=== PATIENT | male | born 1985 ===

== ENCOUNTER 2020-05-04 22:34 | Emergency (ER) | payer MEDICAID, SELFPAY ==
--- NOTE | ~2020-05-04 | XR_ITS ---
EXAMINATION: XR ABDOMEN KUB CLINICAL INDICATION: Constipation COMPARISON: None TECHNIQUE: AP view of the abdomen. FINDINGS: There is a nonobstructive bowel gas pattern. No dilated loops of bowel. Gas and stool throughout the colon with moderate colonic stool burden. No gross evidence of free air, though evaluation is limited on supine imaging. The lung bases are clear. No suspicious calcifications. No acute osseous abnormality. XR/XR KUB IMPRESSION: Moderate colonic stool burden.
[2020-05-04 22:48] VITALS: BP 150/91; BP 170/110; PULSE 80; PULSE 94; RESP 18; TEMP 37.3; O2SAT 97; O2SAT 99; BMI 29.2
--- NOTE | 2020-05-04 23:15 | ED.ABDPAIN ---
HPI - Abdominal Pain General Chief Complaint: Abdominal Pain Stated Complaint: ABD PAIN X 2 WEEKS,NAUSEA Time Seen by Provider: 05/04/20 22:54 Source: patient Mode of arrival: ambulatory Limitations: no limitations History of Present Illness HPI narrative: Patient presents to the ED for left lower abdominal pain for 2 weeks with nausea. patient states no dysuria, hematuria, fever, chills, dysuria, flank pain, coughing, chest pain, testicular pain, or hematuria. MD elicited complaint: abdominal pain Related Data Previous Rx's Medication Instructions Recorded docusate calcium 240 mg PO DAILY PRN #7 cap 05/05/20 polyethylene glycol 3350 [Miralax] 17 g PO DAILY #510 g 05/05/20 Allergies Allergy/AdvReac Type Severity Reaction Status Date / Time No Known Allergies Allergy Verified 05/04/20 22:47 Review of Systems Constitutional: Reports as per HPI and Reports no additional constitutional complaints Eyes: Reports as per HPI and Reports no additional eye complaints Reports system reviewed and no additional complaints, except as documented and Reports as per HPI Cardiovascular: Reports as per HPI and Reports no additional cardiovascular complaints Respiratory: Reports as per HPI Gastrointestinal: Reports as per HPI, Reports no additional gastrointestinal complaints, Reports abdominal pain and Reports nausea Genitourinary: Reports no additional male genitourinary complaints and Reports as per HPI Musculoskeletal: Reports no additional musculoskeletal complaints and Reports as per HPI Reports system reviewed and no additional complaints, except as documented and Reports as per HPI Psychiatric: Reports no additional psychiatric complaints and Reports as per HPI Physical Exam Vital Signs: Vital Signs: Last Vital Signs Temp 99.1 F 05/04/20 22:48 Pulse 80 05/04/20 22:48 Resp 18 05/04/20 22:48 BP 150/91 H 05/04/20 22:48 Pulse Ox 97 05/04/20 22:48 Body Mass Index 29.2 Const: General: cooperative, healthy appearing, comfortable, no acute distress, well developed, alert and awake; No Physically active Orientation/consciousness: patient oriented x3 HENMT: Head: Yes normal to inspection, Yes No palpable skull fracture present, Yes normocephalic, Yes atraumatic, No abrasion, No Acrocyanosis present, No Banegas's sign, No contusion, No cranial bruits, No hematoma, No laceration, No occipital foramen tenderness, No palpable skull fracture, No raccoon eyes, No scalp tenderness, No Temporal artery tenderness present and No periorbital ecchymosis Eyes: General: appearance normal, both eyes and all related structures Neck: Neck: Yes normal visual inspection, Yes full ROM, Yes no lymphadenopathy, Yes no meningeal signs, Yes trachea midline, Yes supple and No tender Chest: Chest palpation & inspection: normal inspection of the chest and normal palpation of entire chest wall Resp: Effort & Inspection: normal respiratory effort and able to speak in complete sentences Auscultation: clear to auscultation bilaterally Cardio: Jugular venous distension: no JVD Heart sounds: S1 normal heart sound present and S2 normal heart sound present GI: Inspection: Yes normal to inspection Palpation (GI): Firmness to palpation present (GI), Tenderness to palpation present (GI) in the LLQ, Guarding due to palpation present (GI) and Rigid due to palpation : General: No CVA tenderness and Yes no CVA tenderness Back/Spine/Pelvis: Back: no CVA tenderness, No CVA tenderness and No back tenderness Skin: General skin exam: no rashes or lesions noted Neuro: General: patient oriented x3, no meningeal signs and CN's II-XI intact bilaterally Cranial nerves: Yes CN's II-XII intact bilaterally Extrem: General: Yes normal to inspection and Yes full ROM Psych: Appearance: grossly normal, well kempt and not disheveled Course Course Course Narrative: Patient states also having constipation issues for the past two weeks and having only small drops of stool and still having the urge to go when i was leaving the room. patient will hav KUB ordered Reevaluation(s) Reevaluation #1: Xray shows severe constipation. Xray negative for bowel obstruction. no indication for labs or UA. Patient instead will be given magnesium citrate. No IV fluids inidcated. or pepcid. labs, fluids, and pepcid cancelled. Time: 00:25 MDM - Abdominal Pain MDM Narrative Medical decision making narrative: Constipation Discharge Plan Discharge Clinical Impression: Constipation Patient Disposition: Home, Self-Care Instructions: Constipation (ED) Additional Instructions: Return to the ED for worsening abdominal pain, fever, chills, nausea, emesis, decrease Po appetite, or any other concerning symptoms. Prescriptions: New polyethylene glycol 3350 [Miralax] 17 gram/dose powder 17 g PO DAILY Qty: 510 RF: 0 docusate calcium 240 mg capsule 240 mg PO DAILY PRN (Reason: pain) Qty: 7 RF: 0 Referrals: Kaylie Cardona MD [Primary Care Provider] - 2 days (Xray shows constipation. negative for bowel obstruction.) Interventions: ED Discharge Assessment Last Done: 05/05/20 00:57 Discharge Date/Time: 05/05/20 00:58 Print Language: Latvian [facility] Past Medical History Medical History Anxiety HTN (hypertension) Social History Social History Alcohol intake: never Smoked in Last 30 Days: No Use of substances other than those prescribed or required for medical reasons: No Advance Directives: No Advance Directives Information Provided: No
[2020-05-05] MEDS: Magnesium Citrate 300 ML SOLUTION PO (00:53)
== END 2020-05-05 00:58 | disposition home or self-care (01) ==
PROVIDERS: Emergency Provider Student in an Organized Health Care Education/Training Program; PCP Student in an Organized Health Care Education/Training Program
DX: K59.00 Constipation, unspecified (principal); R10.32 Left lower quadrant pain; R11.0 Nausea; Z79.899 Other long term (current) drug therapy
CPT/HCPCS: 74018; 96365; 99283

== ENCOUNTER 2020-08-05 07:35 | Emergency (ER) | payer MEDICAID, SELFPAY ==
--- NOTE | ~2020-08-05 | CT_ITS ---
EXAMINATION: CT ABDOMEN AND PELVIS WITH CONTRAST CLINICAL INFORMATION: Elevated lipase. Abdominal pain. COMPARISON: None TECHNIQUE: Multidetector volumetric images were obtained from the superior aspect of the liver through the pubic symphysis following administration 85 mL of Omnipaque 350 intravenous contrast. Sagittal and coronal reformatted images were obtained on the technologist's workstation. Oral contrast: No This CT examination was performed using dose optimization techniques as appropriate, variously including the following: *Automated exposure control *Adjustment of mA and/or kV according to patient size (this includes techniques or standardized protocols for targeted exams where dose is matched to indication/reason for exam; i.e. extremities or head) *Use of iterative reconstruction technique DLP: 729 mGy-cm FINDINGS: LUNG BASES: The lung bases are clear. The heart size is normal. LIVER, GALLBLADDER, AND BILIARY TREE: The liver is normal in size, shape, and attenuation. No focal hepatic lesion or biliary ductal dilatation is present. The gallbladder is unremarkable with no evidence of radiopaque gallstones, gallbladder wall thickening, or obvious pericholecystic inflammatory changes. PANCREAS: Unremarkable. SPLEEN: Punctate calcification in the center of the spleen. A small accessory splenule is seen at the hilum. ADRENAL GLANDS: Unremarkable. KIDNEYS AND URETERS: The kidneys are normal in size, shape, and attenuation. No hydronephrosis, hydroureter, or calculi seen. No perinephric stranding. There are bilateral renal cyst. The largest cyst in the midpole right kidney measures 2.1 cm and the largest cyst in upper/midpole left kidney measures 1 cm. BLADDER: Unremarkable. GASTROINTESTINAL TRACT: Scattered stool and gas seen throughout the colon without significant distention. The small bowel loops are normal caliber. Appendix is normal caliber. There are small shotty lymph nodes in the ileocecal region measuring less than 5 mm. The stomach is nondistended. ABDOMINAL WALL: No significant hernia is appreciated. LYMPH NODES: Normal. VASCULAR: Unremarkable. PELVIC VISCERA: Unremarkable. OSSEOUS STRUCTURES: No lytic or sclerotic process seen. CT/CT abdomen pelvis w con IMPRESSION: No acute intra-abdominal process seen. Nonspecific splenic calcification no focal lesion. Liver and pancreas are unremarkable. Bilateral renal cysts without radiopaque calculi or hydronephrosis. Mild constipation.
--- NOTE | ~2020-08-05 | XR_ITS ---
EXAMINATION: CHEST AND KUB X-RAY CLINICAL INFORMATION: Chest pain. Evaluate stool burden. COMPARISON: Previous chest x-ray March 2019 and KUB April 2020 TECHNIQUE: PA view of the chest and AP upright view of the abdomen and pelvis FINDINGS: Chest: The cardiac and mediastinal contours are normal. The lungs are clear. There is no pleural effusion or pneumothorax. There is no evidence of free air. Bony structures are unremarkable. KUB: There are no dilated loops of bowel or air-fluid levels to suggest obstruction. There is no evidence of free air. No calcifications are seen. Bony structures are unremarkable. XR/XR chest 1V IMPRESSION: Unremarkable exam.
--- NOTE | ~2020-08-05 | XR_ITS ---
EXAMINATION: CHEST AND KUB X-RAY CLINICAL INFORMATION: Chest pain. Evaluate stool burden. COMPARISON: Previous chest x-ray March 2019 and KUB April 2020 TECHNIQUE: PA view of the chest and AP upright view of the abdomen and pelvis FINDINGS: Chest: The cardiac and mediastinal contours are normal. The lungs are clear. There is no pleural effusion or pneumothorax. There is no evidence of free air. Bony structures are unremarkable. KUB: There are no dilated loops of bowel or air-fluid levels to suggest obstruction. There is no evidence of free air. No calcifications are seen. Bony structures are unremarkable. XR/XR KUB IMPRESSION: Unremarkable exam.
[2020-08-05 07:41] VITALS: BP 153/88; BP 159/99; PULSE 100; PULSE 98; RESP 16; TEMP 36.8; O2SAT 97; BMI 30.5
--- NOTE | 2020-08-05 07:46 | ECG_ITS ---
Test Reason : DIZZINESS Blood Pressure : / mmHG Vent. Rate : 089 BPM Atrial Rate : 089 BPM P-R Int : 144 ms QRS Dur : 078 ms QT Int : 360 ms P-R-T Axes : 049 050 025 degrees QTc Int : 438 ms Normal sinus rhythm Normal ECG When compared with ECG of 25-MAR-2019 03:52, No significant change was found Referred By: Carrol Carrillo Electronically Signed By:Willie Marin
--- NOTE | 2020-08-05 07:49 | ED.CHESTPAIN ---
HPI - Chest Pain General Chief Complaint: Chest Pain Stated Complaint: YURIY CP,ABD PAIN,ASA GIVEN 12L UNREMARKABLE PER EMS Time Seen by Provider: 08/05/20 07:46 Source: patient and EMS Mode of arrival: EMS Limitations: no limitations History of Present Illness complaint: chest pain Onset (ago): month(s) (started after Pfizer vaccine in June but worse since 5am today) Timing of current episode: episodic Prior episodes: Yes Onset: during rest Pain location: left chest and right chest Severity: moderate Quality: sharp Relieving factors: nothing Exacerbating factors: other (bumpy car rides) Context: other (hx of similar episodes in past) Associated symptoms: nausea and other (constipation) Treatment prior to arrival: aspirin Related Data Previous Rx's Medication Instructions Recorded docusate calcium 240 mg PO DAILY PRN #7 cap 05/05/20 polyethylene glycol 3350 [Miralax] 17 g PO DAILY #510 g 05/05/20 docusate sodium [Colace] 100 mg PO BID PRN #30 cap 08/05/20 hydrocodone-acetaminophen 1 tab PO Q6H PRN #12 tab 08/05/20 ondansetron 4 mg PO Q8H PRN #20 tab 08/05/20 sennosides [senna] 8.6 mg PO BEDTIME PRN #30 cap 08/05/20 Allergies Allergy/AdvReac Type Severity Reaction Status Date / Time No Known Allergies Allergy Verified 05/04/20 22:47 Review of Systems Review of Systems: Constitutional : No Weight loss, No Fever, No Chills ENT/Mouth : No sore throat, No Rhinorrhea Eyes: No Eye Pain, No Swelling Cardiovascular : pos Chest Pain, no SOB, no Dyspnea on Exertion, No Orthopnea, No Edema, No Palpitations Respiratory : No Cough, No Sputum Gastrointestinal : pos Nausea, No Vomiting, No Diarrhea, No abdominal Pain, No Hematochezia, No Melena, pos constipation Genitourinary : No Dysuria, No Urinary Frequency Musculoskeletal : No joint pain, No Myalgias, No Joint Swelling Skin : No Skin Lesions, No rash Neuro : No Weakness, No Numbness, No Dizziness, No Headache Psych : No Anxiety/Panic, No Depression Heme/Lymph: No Bruising, No Lymphadenopathy Endocrine : No Polyuria, No Polydipsia All other systems reviewed and are negative PMFSH Past Medical History Attestation statement: The following information was validated with the patient. Medical History Anxiety HTN (hypertension) Social History Social History (Updated 08/05/20 @ 07:51 by Carrol Carrillo DO) Alcohol intake: never Patient Tobacco Use Status: Never used Tobacco Use of substances other than those prescribed or required for medical reasons: No Advance Directives: No Advance Directives Information Provided: No Physical Exam Vital Signs: Vital Signs: Last Vital Signs Temp 98.2 F 08/05/20 07:41 Pulse 100 08/05/20 07:41 Resp 16 08/05/20 07:41 BP 159/99 H 08/05/20 07:41 Pulse Ox 97 08/05/20 07:41 Body Mass Index 30.5 Appearance: Alert. Oriented X3. No acute distress. Anxious Eyes: Pupils equal, round and reactive to light. ENT: Pharynx normal. Neck: Normal inspection. Neck supple. CVS: Normal heart rate and rhythm. Pulses normal. Respiratory: No respiratory distress. Breath sounds normal. Abdomen: Soft and very mild L sided abd ttp no rebound or guarding Skin: Skin warm and dry. Normal skin color. Normal skin turgor. Extremities: No lower extremity edema. No calf ttp Neuro: Oriented X 3. No motor deficit. No sensory deficit. Course Course Course Narrative: elevated lipase - CT scan ordered for pancreatitis/stone CT scan does not show acute pancreatitis, at this time he is not vomiting able to tolerate PO will DC home with medications and PCP follow up, very minimal abdominal ttp which he has had on and off for 2+ months MDM - Chest Pain MDM Narrative Medical decision making narrative: 34 yo male with anxiety/depression constipation hx comes in with chest pain since june post COVID shot Pfizer worse today since 5am, also c/o constipation, CP is atypical has no ACS risk factors, has been going on for months seems unusual for PE/dissection, at this time labs, troponin, EKG, CXR, infl markers, KUB for stool burden, dispo per results and findings. Lab Data Result diagrams: 08/05/20 08:25 08/05/20 08:25 Labs: Lab Results 08/05/20 08/05/20 08/05/20 Range/Units 08:25 08:25 08:25 WBC 7.6 (4.8-10.8) X10*3/uL RBC 5.50 (4.60-5.80) X10*6/uL Hgb 17.6 (14.0-18.0) g/dl Hct 49.6 (42-52) % MCV 90.2 (80-98) fL MCH 32.0 (27.0-33.0) pg MCHC 35.5 (31.0-36.0) g/dl RDW 11.7 (11.0-16.0) % Plt Count 253 (160-400) X10*3/uL MPV 9.6 (9.4-12.4) fL Immature Gran % (Auto) 0.4 (0.0-0.4) % Neut % (Auto) 58.4 (45-73) % Lymph % (Auto) 30.8 (20-40) % [place] % (Auto) 8.2 (2-11) % Eos % (Auto) 1.7 (0-4) % Baso % (Auto) 0.5 (0-2) % Lymph # (Auto) 2.3 (1.2-4.9) X10*3/uL [place] # (Auto) 0.6 (0.1-1.2) X10*3/uL Eos # (Auto) 0.1 (0.0-0.4) X10*3/uL Baso # (Auto) 0.0 (0.0-0.2) X10*3/uL Abs Immat Gran (auto) 0.03 (0.00-0.03) X10*3/uL Absolute Neuts (auto) 4.4 (2.0-8.3) X10*3/uL Absolute Nucleated RBC 0.000 (0.0-0.012) X10*3/uL Nucleated RBC % (auto) 0.0 (0.0-0.2) /100WBC ESR 2 (0-15) MM/HR Hold Blue Top SEE NOTE Sodium (135-145) mmol/L Potassium (3.3-5.1) mmol/L Chloride (96-108) mmol/L Carbon Dioxide (22-29) mmol/L Anion Gap (12-20) BUN (9-16) mg/dL Creatinine (0.5-1.4) mg/dL Estim Creat Clear Calc Estimated GFR Random Glucose (60-115) mg/dL Calcium (8.4-10.2) mg/dL Magnesium (1.6-2.6) mg/dL Total Bilirubin (0.0-1.0) mg/dL Direct Bilirubin (0.0-0.5) mg/dL AST (5-37) U/L ALT (0-40) U/L Alkaline Phosphatase (39-117) U/L Troponin I High Sens (<3.5-35.0) ng/L C-Reactive Protein (< or = 0.50) mg/dL Total Protein (6.5-8.0) g/dL Albumin (3.5-5.0) g/dL Lipase (8-78) U/L 08/05/20 08/05/20 08/05/20 Range/Units 08:25 08:25 08:25 WBC (4.8-10.8) X10*3/uL RBC (4.60-5.80) X10*6/uL Hgb (14.0-18.0) g/dl Hct (42-52) % MCV (80-98) fL MCH (27.0-33.0) pg MCHC (31.0-36.0) g/dl RDW (11.0-16.0) % Plt Count (160-400) X10*3/uL MPV (9.4-12.4) fL Immature Gran % (Auto) (0.0-0.4) % Neut % (Auto) (45-73) % Lymph % (Auto) (20-40) % [place] % (Auto) (2-11) % Eos % (Auto) (0-4) % Baso % (Auto) (0-2) % Lymph # (Auto) (1.2-4.9) X10*3/uL [place] # (Auto) (0.1-1.2) X10*3/uL Eos # (Auto) (0.0-0.4) X10*3/uL Baso # (Auto) (0.0-0.2) X10*3/uL Abs Immat Gran (auto) (0.00-0.03) X10*3/uL Absolute Neuts (auto) (2.0-8.3) X10*3/uL Absolute Nucleated RBC (0.0-0.012) X10*3/uL Nucleated RBC % (auto) (0.0-0.2) /100WBC ESR (0-15) MM/HR Hold Blue Top Sodium 140 (135-145) mmol/L Potassium 3.6 (3.3-5.1) mmol/L Chloride 106 (96-108) mmol/L Carbon Dioxide 25 (22-29) mmol/L Anion Gap 13 (12-20) BUN 13 (9-16) mg/dL Creatinine 0.99 (0.5-1.4) mg/dL Estim Creat Clear Calc 126.2 Estimated GFR > 60 Random Glucose 105 (60-115) mg/dL Calcium 9.6 (8.4-10.2) mg/dL Magnesium 2.3 (1.6-2.6) mg/dL Total Bilirubin 0.6 (0.0-1.0) mg/dL Direct Bilirubin 0.2 (0.0-0.5) mg/dL AST 28 (5-37) U/L ALT 72 H (0-40) U/L Alkaline Phosphatase 94 (39-117) U/L Troponin I High Sens < 3.5 (<3.5-35.0) ng/L C-Reactive Protein 0.06 (< or = 0.50) mg/dL Total Protein 7.3 (6.5-8.0) g/dL Albumin 4.5 (3.5-5.0) g/dL Lipase 371 H (8-78) U/L Discharge Plan Discharge Clinical Impression: Atypical chest pain, Elevated lipase Patient Disposition: Home, Self-Care Instructions: Chest Pain (ED) Additional Instructions: return to ED for any worsening symptoms or concerns your pancreas lab was elevated but your CT scan showed no inflammation of the pancreas, PLEASE FOLLOW UP WITH YOUR PRIMARY CARE DOCTOR IN 2 DAYS TO REPEAT LIPASE AND LIVER FUNCTION TESTS Prescriptions: New hydrocodone-acetaminophen 5-325 mg tablet 1 tab PO Q6H PRN (Reason: pain) Qty: 12 RF: 0 docusate sodium [Colace] 100 mg capsule 100 mg PO BID PRN (Reason: constipation) Qty: 30 RF: 0 ondansetron 4 mg tablet,disintegrating 4 mg PO Q8H PRN (Reason: nausea and vomiting) Qty: 20 RF: 0 senna 8.6 mg capsule 8.6 mg PO BEDTIME PRN (Reason: constipation) Qty: 30 RF: 0 No Action polyethylene glycol 3350 [Miralax] 17 gram/dose powder 17 g PO DAILY Qty: 510 RF: 0 docusate calcium 240 mg capsule 240 mg PO DAILY PRN (Reason: pain) Qty: 7 RF: 0 Referrals: Kaylie Cardona MD [Primary Care Provider] - 2 days Stand Alone Forms: Work/School Release
[2020-08-05 08:35] LABS: MANUAL DIFF FLAG NO
[2020-08-05 08:40] LABS: Basophils Percent Auto 0.5 % (0-2); Eosinophils Absolute Auto 0.1 X10*3/uL (0.0-0.4); Eosinophils Percent Auto 1.7 % (0-4); Hematocrit 49.6 % (42-52); Hemoglobin 17.6 g/dl (14.0-18.0); Imm Gran Abs Auto 0.03 X10*3/uL (0.00-0.03); Imm Gran Pct Auto 0.4 % (0.0-0.4); Lymphocytes Absolute Auto 2.3 X10*3/uL (1.2-4.9); Lymphocytes Percent Auto 30.8 % (20-40); Mean Corpuscular HGB Conc 35.5 g/dl (31.0-36.0); Mean Corpuscular Volume 90.2 fL (80-98); Mean Platelet Volume 9.6 fL (9.4-12.4); Monocytes Absolute Auto 0.6 X10*3/uL (0.1-1.2); Monocytes Percent Auto 8.2 % (2-11); Neutrophils Absolute Auto 4.4 X10*3/uL (2.0-8.3); Neutrophils Percent Auto 58.4 % (45-73); Platelet Count 253 X10*3/uL (160-400); Red Cell Distribution Width 11.7 % (11.0-16.0); White Blood Count 7.6 X10*3/uL (4.8-10.8)
[2020-08-05 09:09] LABS: Troponin-I High Sensitivity < 3.5 ng/L (<3.5-35.0)
[2020-08-05 09:10] LABS: C Reactive Protein 0.06 mg/dL (< or = 0.50)
[2020-08-05 09:13] LABS: Alanine Aminotransferase 72 U/L (0-40); Albumin Level 4.5 g/dL (3.5-5.0); Alkaline Phosphatase 94 U/L (39-117); Anion Gap 13 (12-20); Aspartate Amino Transferase 28 U/L (5-37); Bilirubin Direct 0.2 mg/dL (0.0-0.5); Bilirubin Total 0.6 mg/dL (0.0-1.0); Blood Urea Nitrogen 13 mg/dL (9-16); Calcium 9.6 mg/dL (8.4-10.2); Carbon Dioxide 25 mmol/L (22-29); Chloride 106 mmol/L (96-108); Creatinine Clr Calc Pharmacy 126.2; Estimated Glomerular Filt Rate > 60; Glucose Random 105 mg/dL (60-115); Magnesium 2.3 mg/dL (1.6-2.6); Potassium 3.6 mmol/L (3.3-5.1); Sodium 140 mmol/L (135-145); Total Protein 7.3 g/dL (6.5-8.0)
[2020-08-05 09:29] LABS: Erythrocyte Sedimentation Rate 2 MM/HR (0-15)
[2020-08-05 09:33] LABS: Lipase 371 U/L (8-78)
[2020-08-05] MEDS: 0.9 % Sodium Chloride 1,000 ML 999 ML IVCONT (10:01)
[2020-08-05] MEDS: iohexoL 350 MG/ML 100 ML INFUS..BTL 85 ML IV (11:06)
[2020-08-05 11:42] VITALS: BP 123/78; PULSE 78; RESP 16; O2SAT 98
== END 2020-08-05 11:56 | disposition home or self-care (01) ==
PROVIDERS: Emergency Provider Emergency Medicine; PCP Student in an Organized Health Care Education/Training Program
DX: R07.89 Other chest pain (principal); R79.89 Other specified abnormal findings of blood chemistry; R10.9 Unspecified abdominal pain; K59.00 Constipation, unspecified; Z79.899 Other long term (current) drug therapy
CPT/HCPCS: 36415; 71045; 74018; 74177; 80048; 80076; 83690; 83735; 84484; 85025; 85652; 86140; 93005; 99285; Q9967

== ENCOUNTER → 2020-09-16 13:52 | Outpatient (BNVA) | payer MEDICAID, SELFPAY | PROVIDERS: PCP Student in an Organized Health Care Education/Training Program; Visit Provider Internal Medicine Endocrinology, Diabetes & Metabolism ==

== ENCOUNTER 2020-11-02 23:13 | Emergency (ER) | payer MEDICAID, SELFPAY ==
--- NOTE | ~2020-11-02 | XR_ITS ---
EXAMINATION: XR CHEST CLINICAL INFORMATION: Dyspnea. COMPARISON: 08/05/2020 portable chest. TECHNIQUE: 2 views of the chest were obtained. FINDINGS: No significant abnormality is noted involving the heart, lungs, mediastinum, bony thorax or soft tissues. XR/XR chest 2V IMPRESSION: No acute cardiopulmonary process.
--- NOTE | 2020-11-02 23:21 | ECG_ITS ---
Test Reason : CHEST TIGHTNESS Blood Pressure : / mmHG Vent. Rate : 074 BPM Atrial Rate : 074 BPM P-R Int : 134 ms QRS Dur : 080 ms QT Int : 390 ms P-R-T Axes : 036 053 032 degrees QTc Int : 432 ms Normal sinus rhythm Normal ECG When compared with ECG of 05-AUG-2020 07:58, No significant change was found Referred By: Generic ED Physician Electronically Signed By:TERRANCE FAM
[2020-11-02 23:26] VITALS: BP 153/98; PULSE 91; RESP 16; TEMP 37.1; O2SAT 95; BMI 28.8
--- NOTE | 2020-11-02 23:55 | ED.SOB ---
HPI - SOB/Dyspnea General Chief Complaint: Dyspnea Stated Complaint: tight chest, SoB Time Seen by Provider: 11/02/20 23:55 Source: patient Mode of arrival: ambulatory Limitations: no limitations History of Present Illness HPI Narrative: Patient's history of mild asthma COVID-19 vaccinated co-worker at his girlfriend positive for COVID , his girlfriend never been tested for COVID patient been feeling increased shortness of breath for last 1 week no fever no chills no loss of taste sensation Related Data Previous Rx's Medication Instructions Recorded albuterol sulfate 90 mcg/actuation 2 puff INHALATION Q4-6H PRN #8.5 g 11/03/20 aerosol inhaler (ProAir HFA) prednisone 20 mg tablet 40 mg PO DAILY #10 tab 11/03/20 Allergies Allergy/AdvReac Type Severity Reaction Status Date / Time No Known Allergies Allergy Verified 11/02/20 23:26 Review of Systems Review of Systems: Yes all other systems are reviewed and are negative PMFSH Past Medical History Medical History Anxiety Autosomal dominant hereditary hemochromatosis Dizziness HTN (hypertension) Mild intermittent allergic 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 Mood disorder Paresthesia Thyroid nodule Surgical History Hx of wisdom tooth extraction Family History Family History Father CLL (chronic lymphocytic leukemia) Diabetes Paternal Grandfather Diabetes Maternal Grandmother H/O heart bypass surgery Mother Drug abuse Social History Social History Alcohol intake: never Patient Tobacco Use Status: Never used Tobacco Advance Directives: No Advance Directives Information Provided: Yes Physical Exam Vital Signs: Vital Signs: Last Vital Signs Temp 98.8 F 11/02/20 23:26 Pulse 91 11/02/20 23:26 Resp 16 11/02/20 23:26 BP 153/98 H 11/02/20 23:26 Pulse Ox 95 11/02/20 23:26 Body Mass Index 28.8 Appearance: Alert. Oriented X3. No acute distress. ENT: Pharynx normal. Oral Mucosa moist Neck: Normal inspection. Neck supple. CVS: Normal heart rate and rhythm. Pulses normal. Respiratory: No respiratory distress. Equal air entry bilateral, no wheezing/rales/rhonchi, prolonged expiration Abdomen: Soft and nontender. Skin: Skin warm and dry. Normal skin color. Normal skin turgor. Extremities: No lower extremity edema. No calf tenderness Neuro: Oriented X 3. MDM - SOB/Dyspnea MDM Narrative Medical decision making narrative: Repeat chest x-ray negative saturating 95% at room air lungs clear discharge patient home, advised to use albuterol inhaler and prednisone Lab Data Attestation: I reviewed the patient's lab results. Labs: Lab Results 11/02/20 Range/Units 23:34 COVID-19 (ELENA) Negative (Negative) COVID-19 Clin Com See Note Discharge Plan Discharge Clinical Impression: Asthma with exacerbation Qualifiers: Asthma severity: moderate Asthma persistence: persistent Qualified Code(s): J45.41 - Moderate persistent asthma with (acute) exacerbation Patient Disposition: Home, Self-Care Instructions: Asthma (ED) Additional Instructions: Use albuterol inhaler as advised take prednisone. Follow with PCP if not better Prescriptions: New albuterol sulfate [ProAir HFA] 90 mcg/actuation HFA aerosol inhaler 2 puff inhalation Q4-6H PRN (Reason: shortness of breath or wheezing) Qty: 8.5 RF: 0 prednisone 20 mg tablet 40 mg PO DAILY Qty: 10 RF: 0
[2020-11-02 23:58] LABS: COVID-19 Test Negative (Negative)
[2020-11-03] MEDS: predniSONE 20 MG TABLET 40 MG PO (00:29)
== END 2020-11-03 00:55 | disposition home or self-care (01) ==
PROVIDERS: Emergency Provider Internal Medicine; PCP Psychiatry & Neurology Psychiatry
DX: J45.41 Moderate persistent asthma with (acute) exacerbation (principal); R06.00 Dyspnea, unspecified; I10 Essential (primary) hypertension; Z20.822 Contact with and (suspected) exposure to COVID-19; Z79.899 Other long term (current) drug therapy
CPT/HCPCS: 36415; 71046; 87635; 93005; 99283

== ENCOUNTER 2020-11-26 06:43 | Emergency (ER) | payer MEDICAID, SELFPAY ==
--- NOTE | ~2020-11-26 | XR_ITS ---
EXAMINATION: XR CHEST CLINICAL INFORMATION: Chest pain. COMPARISON: None TECHNIQUE: Frontal view of the chest was obtained. FINDINGS: No significant abnormality is noted involving the heart, lungs, mediastinum, bony thorax or soft tissues. XR/XR chest 1V IMPRESSION: Unremarkable chest examination.
--- NOTE | 2020-11-26 06:48 | ED.CHESTPAIN ---
HPI - Chest Pain General Chief Complaint: Chest Pain Stated Complaint: chest pain x3 hours, currently pain free Time Seen by Provider: 11/26/20 06:45 Source: patient and EMS Mode of arrival: EMS Limitations: no limitations History of Present Illness MD complaint: chest pain Onset (ago): hour(s) (3) Timing of current episode: constant Prior episodes: Yes Onset: during rest Pain location: substernal Pain radiation: left arm Severity: moderate Quality: sharp Relieving factors: nothing Exacerbating factors: nothing Context: other (hx of similar episodes in the past since June) Associated symptoms: dyspnea Treatment prior to arrival: aspirin Related Data Home Medications Medication Instructions Recorded Confirmed esomeprazole magnesium 20 mg 20 mg PO DAILY PRN 11/12/20 11/12/20 capsule,delayed release (Nexium) Previous Rx's Medication Instructions Recorded albuterol sulfate 90 mcg/actuation 2 puff INHALATION Q4-6H PRN #8.5 g 11/03/20 aerosol inhaler (ProAir HFA) Allergies Allergy/AdvReac Type Severity Reaction Status Date / Time No Known Allergies Allergy Verified 11/02/20 23:26 Review of Systems Review of Systems: Constitutional : No Weight loss, No Fever, No Chills ENT/Mouth : No sore throat, No Rhinorrhea Eyes: No Eye Pain, No Swelling Cardiovascular : pos Chest Pain, pos SOB, no Dyspnea on Exertion, No Orthopnea, No Edema, No Palpitations Respiratory : No Cough, No Sputum Gastrointestinal :no Nausea, No Vomiting, No Diarrhea, No abdominal Pain, No Hematochezia, No Melena Genitourinary : No Dysuria, No Urinary Frequency Musculoskeletal : No joint pain, No Myalgias, No Joint Swelling Skin : No Skin Lesions, No rash Neuro : No Weakness, No Numbness, No Dizziness, No Headache Psych : No Anxiety/Panic, No Depression Heme/Lymph: No Bruising, No Lymphadenopathy Endocrine : No Polyuria, No Polydipsia All other systems reviewed and are negative [facility] Past Medical History Attestation statement: The following information was validated with the patient. Medical History Anxiety Autosomal dominant hereditary hemochromatosis Dizziness HTN (hypertension) Mild intermittent allergic 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 Mood disorder Paresthesia Thyroid nodule Surgical History Hx of wisdom tooth extraction Family History Family History Father CLL (chronic lymphocytic leukemia) Diabetes Paternal Grandfather Diabetes Maternal Grandmother H/O heart bypass surgery Mother Drug abuse Social History Social History Alcohol intake: never Patient Tobacco Use Status: Never used Tobacco Use of substances other than those prescribed or required for medical reasons: No Advance Directives: No Advance Directives Information Provided: Yes Physical Exam Vital Signs: Vital Signs: Last Vital Signs Temp 98.7 F 11/26/20 10:34 Pulse 78 11/26/20 10:34 Resp 15 11/26/20 10:34 BP 148/87 H 11/26/20 10:34 Pulse Ox 97 11/26/20 10:34 Body Mass Index 30.1 Appearance: Alert. Oriented X3. No acute distress. Anxious Eyes: Pupils equal, round and reactive to light. ENT: Pharynx normal. Neck: Normal inspection. Neck supple. CVS: Normal heart rate and rhythm. Pulses normal. Respiratory: No respiratory distress. Breath sounds normal. Abdomen: Soft and non-tender. Skin: Skin warm and dry. Normal skin color. Normal skin turgor. Extremities: No lower extremity edema. No calf ttp Neuro: Oriented X 3. No motor deficit. No sensory deficit. Course Course Course Narrative: patient was requesting that I observe the RNs draw his blood to watch if his veins in his hand collapse, RN and patient aware I am not able to due to the volume of ambulance patient's we have, phlebotomy was paged but the patient now refuses and wants to go home MDM - Chest Pain MDM Narrative Medical decision making narrative: 35 yo male with hemacromatosis, anxiety, issues since June on and off - today reports 3 hours of sharp sternal chest pain, shortness of breath, feels urge to have BM - has no ACS risk factors, PERC negative. At this time labs, troponin x 2, CXR, already given ASA FIRE INSPECTOR - seems unusual for ACS but will rule out with delta troponin Lab Data Result diagrams: 11/26/20 07:22 11/26/20 07:22 Labs: Lab Results 11/26/20 11/26/20 11/26/20 Range/Units 07:22 07:22 07:22 WBC 7.0 (4.8-10.8) X10*3/uL RBC 5.50 (4.60-5.80) X10*6/uL Hgb 18.1 H (14.0-18.0) g/dl Hct 50.2 (42-52) % MCV 91.3 (80-98) fL MCH 32.9 (27.0-33.0) pg MCHC 36.1 H (31.0-36.0) g/dl RDW 11.6 (11.0-16.0) % Plt Count 267 (160-400) X10*3/uL MPV 9.2 L (9.4-12.4) fL Immature Gran % (Auto) 0.1 (0.0-0.4) % Neut % (Auto) 59.1 (45-73) % Lymph % (Auto) 30.5 (20-40) % [place] % (Auto) 8.4 (2-11) % Eos % (Auto) 1.3 (0-4) % Baso % (Auto) 0.6 (0-2) % Lymph # (Auto) 2.2 (1.2-4.9) X10*3/uL [place] # (Auto) 0.6 (0.1-1.2) X10*3/uL Eos # (Auto) 0.1 (0.0-0.4) X10*3/uL Baso # (Auto) 0.0 (0.0-0.2) X10*3/uL Abs Immat Gran (auto) 0.01 (0.00-0.03) X10*3/uL Absolute Neuts (auto) 4.2 (2.0-8.3) X10*3/uL Absolute Nucleated RBC 0.000 (0.0-0.012) X10*3/uL Nucleated RBC % (auto) 0.0 (0.0-0.2) /100WBC Sodium 139 (135-145) mmol/L Potassium 4.2 (3.3-5.1) mmol/L Chloride 106 (96-108) mmol/L Carbon Dioxide 22 (22-29) mmol/L Anion Gap 15 (12-20) BUN 14 (9-16) mg/dL Creatinine 0.91 (0.5-1.4) mg/dL Estim Creat Clear Calc 131.2 Estimated GFR > 60 Random Glucose 94 (60-115) mg/dL Calcium 10.0 (8.4-10.2) mg/dL Magnesium 2.3 (1.6-2.6) mg/dL Total Bilirubin 0.5 (0.0-1.0) mg/dL Direct Bilirubin 0.2 (0.0-0.5) mg/dL AST 32 (5-37) U/L ALT 62 H (0-40) U/L Alkaline Phosphatase 88 (39-117) U/L Troponin I High Sens < 3.5 (<3.5-35.0) ng/L Total Protein 7.6 (6.5-8.0) g/dL Albumin 4.4 (3.5-5.0) g/dL Lipase 35 (8-78) U/L ECG Data ECG #1: Attestation: I personally reviewed and interpreted this ECG as follows: ECG interpretation date: 11/26/20 ECG interpretation time: 06:53 Interpretation: Rate: 76 Rhythm: NSR [place]: normal Normal P waves. Normal CRISTIANE. Normal QRS complex. ST T wave : normal no acute ischemia qTC: normal prior studies: no acute ischemia The study has been interpreted contemporaneously by me. . Discharge Plan Discharge Clinical Impression: Atypical chest pain Patient Disposition: Home, Self-Care Instructions: Chest Pain (ED) Additional Instructions: return to ED for any worsening symptoms or concerns WE DID NOT DRAW A SECOND HEART MARKER BUT YOUR INITIAL WORK UP WAS NEGATIVE Prescriptions: No Action esomeprazole magnesium [Nexium] 20 mg Capsule,Delayed Release(Dr/Ec) 20 mg PO DAILY PRN (Reason: Acid Reflux) RF: 0 albuterol sulfate [ProAir HFA] 90 mcg/actuation HFA aerosol inhaler 2 puff inhalation Q4-6H PRN (Reason: shortness of breath or wheezing) Qty: 8.5 RF: 0 Referrals: [facility] [Primary Care Provider] - 1 day Stand Alone Forms: Work/School Release
--- NOTE | 2020-11-26 06:49 | ECG_ITS ---
Test Reason : CHEST PAIN Blood Pressure : / mmHG Vent. Rate : 076 BPM Atrial Rate : 076 BPM P-R Int : 136 ms QRS Dur : 082 ms QT Int : 380 ms P-R-T Axes : 042 062 037 degrees QTc Int : 427 ms Normal sinus rhythm with sinus arrhythmia Normal ECG When compared with ECG of 02-NOV-2020 23:56, No significant change was found Referred By: Carrol Carrillo Electronically Signed By:TERRANCE FAM
[2020-11-26 06:51] VITALS: BP 140/70; PULSE 70; O2SAT 96
[2020-11-26 06:54] VITALS: BP 155/102; PULSE 92; RESP 14; TEMP 37.4; O2SAT 98; BMI 30.1
[2020-11-26 07:01] VITALS: BP 144/91; PULSE 78; RESP 14; O2SAT 96
[2020-11-26 07:28] LABS: MANUAL DIFF FLAG NO
[2020-11-26 07:30] LABS: Basophils Percent Auto 0.6 % (0-2); Eosinophils Absolute Auto 0.1 X10*3/uL (0.0-0.4); Eosinophils Percent Auto 1.3 % (0-4); Hematocrit 50.2 % (42-52); Hemoglobin 18.1 g/dl (14.0-18.0); Imm Gran Abs Auto 0.01 X10*3/uL (0.00-0.03); Imm Gran Pct Auto 0.1 % (0.0-0.4); Lymphocytes Absolute Auto 2.2 X10*3/uL (1.2-4.9); Lymphocytes Percent Auto 30.5 % (20-40); Mean Corpuscular HGB Conc 36.1 g/dl (31.0-36.0); Mean Corpuscular Hemoglobin 32.9 pg (27.0-33.0); Mean Corpuscular Volume 91.3 fL (80-98); Mean Platelet Volume 9.2 fL (9.4-12.4); Monocytes Absolute Auto 0.6 X10*3/uL (0.1-1.2); Monocytes Percent Auto 8.4 % (2-11); Neutrophils Absolute Auto 4.2 X10*3/uL (2.0-8.3); Neutrophils Percent Auto 59.1 % (45-73); Platelet Count 267 X10*3/uL (160-400); Red Cell Distribution Width 11.6 % (11.0-16.0)
[2020-11-26 07:50] LABS: Troponin-I High Sensitivity < 3.5 ng/L (<3.5-35.0)
[2020-11-26 07:51] LABS: Alanine Aminotransferase 62 U/L (0-40); Albumin Level 4.4 g/dL (3.5-5.0); Alkaline Phosphatase 88 U/L (39-117); Anion Gap 15 (12-20); Aspartate Amino Transferase 32 U/L (5-37); Bilirubin Direct 0.2 mg/dL (0.0-0.5); Bilirubin Total 0.5 mg/dL (0.0-1.0); Blood Urea Nitrogen 14 mg/dL (9-16); Carbon Dioxide 22 mmol/L (22-29); Chloride 106 mmol/L (96-108); Creatinine Clr Calc Pharmacy 131.2; Estimated Glomerular Filt Rate > 60; Glucose Random 94 mg/dL (60-115); Lipase 35 U/L (8-78); Magnesium 2.3 mg/dL (1.6-2.6); Potassium 4.2 mmol/L (3.3-5.1); Sodium 139 mmol/L (135-145); Total Protein 7.6 g/dL (6.5-8.0)
--- NOTE | 2020-11-26 07:56 | PC.NURSE ---
lungs - cta. speaks in full sentences.
[2020-11-26 08:46] VITALS: BP 122/86; PULSE 74; RESP 16; TEMP 36.7; O2SAT 96
--- NOTE | 2020-11-26 10:29 | PC.NURSE ---
pt is requesting to have md at bedside while 2nd lab work of tropnonin being because is blood is coming out too slow. aware, who is another pt at this time.
[2020-11-26 10:34] VITALS: BP 148/87; PULSE 78; RESP 15; TEMP 37.1; O2SAT 97
[2020-11-26] MEDS: Omeprazole 20 MG CAPSULE.DR PO (10:46)
[2020-11-26 11:50] VITALS: BP 133/89; PULSE 80; RESP 18; O2SAT 97
[2020-11-26 12:42] LABS: Iron 250 mcg/dL (45-160); Unsaturated Iron Binding < 17 ug/dL
[2020-11-26 13:00] LABS: Ferritin 988 ng/mL (20-250)
== END 2020-11-26 11:50 | disposition home or self-care (01) ==
PROVIDERS: Emergency Provider Emergency Medicine
DX: R07.9 Chest pain, unspecified (principal); M79.602 Pain in left arm; F41.9 Anxiety disorder, unspecified; Z79.899 Other long term (current) drug therapy
CPT/HCPCS: 36415; 71045; 80048; 80076; 82728; 83540; 83690; 83735; 84484; 85025; 93005; 99284

== ENCOUNTER 2020-12-03 11:07 | Outpatient (REF) | payer MEDICAID, SELFPAY ==
[2020-12-03 12:21] LABS: Alanine Aminotransferase 64 U/L (0-40); Albumin Level 4.4 g/dL (3.5-5.0); Alkaline Phosphatase 94 U/L (39-117); Aspartate Amino Transferase 26 U/L (5-37); Bilirubin Direct 0.2 mg/dL (0.0-0.5); Bilirubin Total 0.7 mg/dL (0.0-1.0); Total Protein 7.4 g/dL (6.5-8.0)
[2020-12-03 12:43] LABS: Ferritin 949 ng/mL (20-250)
== END 2020-12-03 11:08 | disposition home or self-care (01) ==
LOC: HO.LAB 11:07
PROVIDERS: Visit Provider Internal Medicine
DX: E83.119 Hemochromatosis, unspecified (principal)
CPT/HCPCS: 36415; 80076; 82728

== ENCOUNTER 2020-12-18 13:47 | Outpatient (REF) | payer MEDICAID, SELFPAY | END 2020-12-18 13:48 | disposition home or self-care (01) | LOC: HO.BBR 13:47 | PROVIDERS: Visit Provider Internal Medicine | DX: Z13.89 Encounter for screening for other disorder (principal) ==

== ENCOUNTER 2021-01-02 02:14 | Emergency (ER) | payer MEDICAID, SELFPAY ==
--- NOTE | 2021-01-02 02:17 | ED_ITS ---
HPI - Abdominal Pain General Chief Complaint: General Medical Stated Complaint: ABD PAIN Time Seen by Provider: 01/02/21 02:14 Source: patient, EMS and old records reviewed Mode of arrival: EMS Limitations: no limitations History of Present Illness MD elicited complaint: abdominal pain (nausea, sweats, cold hands, sweats) Pertinent past history: other (hemachromatosis) Onset (ago): minute(s) (just ACTIVITY COORDINATOR) Pain Consistency: constant Location: chest and epigastric Severity: mild Quality: fullness Radiation: none Migration to: no migration Exacerbating factors: nothing Relieving factors: nothing Context: history of similar episodes Associated symptoms: nausea, chills and other (cold in hands, moving L arm makes him nauseated, felt shaky, abdominal fullness, palpitations) Related Data Home Medications Medication Instructions Recorded Confirmed esomeprazole magnesium 20 mg 20 mg PO DAILY PRN 11/12/20 11/12/20 capsule,delayed release (Nexium) Previous Rx's Medication Instructions Recorded albuterol sulfate 90 mcg/actuation 2 puff INHALATION Q4-6H PRN #8.5 g 11/03/20 aerosol inhaler (ProAir HFA) Allergies Allergy/AdvReac Type Severity Reaction Status Date / Time No Known Allergies Allergy Verified 11/02/20 23:26 Review of Systems Review of Systems Constitutional : No Fever, pos Chills, pos sweats ENT/Mouth : No sore throat, No Rhinorrhea Eyes: No Eye Pain, No Swelling, No Redness Cardiovascular : pos Chest Pain, No SOB, pos Palpitations Respiratory : No Cough, No Sputum, No Wheezing Gastrointestinal : pos Nausea, No Vomiting, No Diarrhea, No Constipation, pos abdominal Pain Genitourinary : No Dysuria, No Urinary Frequency, No Hematuria, Musculoskeletal : No joint pain, No Myalgias, No Joint Swelling Skin : No Skin Lesions, No rash Neuro : pos Weakness, No Numbness, pos Dizziness, No Headache Psych : No Anxiety/Panic, No Depression Heme/Lymph: No Bruising, No Bleeding,No Lymphadenopathy Endocrine : No Polyuria, No Polydipsia All other systems reviewed and are negative Physical Exam Vital Signs: Vital Signs: Last Vital Signs Temp 98.5 F 01/02/21 02:20 Pulse 68 01/02/21 04:19 Resp 20 01/02/21 04:19 BP 129/86 01/02/21 04:19 Pulse Ox 95 01/02/21 04:19 Body Mass Index 30.6 Appearance: Alert. Oriented X3. No acute distress. Anxious Eyes: Pupils equal, round and reactive to light. ENT: Pharynx normal. Neck: Normal inspection. Neck supple. CVS: Normal heart rate and rhythm. Pulses normal. Respiratory: No respiratory distress. Breath sounds normal. Abdomen: Soft and nontender. Skin: Skin warm and dry. Normal skin color. Normal skin turgor. Extremities: No lower extremity edema. Neuro: Oriented X 3. No motor deficit. No sensory deficit. no drift, steady gait, no ataxia, no drift, finger to nose intact, rapid alternating movements intact, bilateral 2+ radial pulse intact 5/5 strength throughout Course Course Course Narrative: hemoglobin, Iron, ferritin - improved from his baseline BP improving has Neurologist, Surtass Analyst, therapist to follow up with given his concern for elevated BP and reported bouts of palpitations for months will encourage him to see a automotive electrician for holter monitor if he has not already patient in the past has seen Neurology for parasthesias overall with fluids, time and zofran he feels much better, will instruct follow up and Cardiology for holter monitor MDM - Abdominal Pain MDM Narrative Medical decision making narrative: 35 yo male with hx of hemachromatosis who underwent therapeutic phlebotomy on 12/18 comes in with multiple complaints including sweats, feeling dizzy, cold hands, nauseated including lifting his left arm makes his nausea worse, palpitations, abdominal fullness. He is neurologically grossly intact his exam is benign. Will obtain labs, iron profile, ferritin, hydrate him, IV zofran. Dispo per results and findings. Lab Data Result diagrams: 01/02/21 02:56 01/02/21 02:56 Labs: Lab Results 01/02/21 01/02/21 01/02/21 Range/Units 02:56 02:56 02:56 WBC 7.1 (4.8-10.8) X10*3/uL RBC 5.26 (4.60-5.80) X10*6/uL Hgb 17.3 (14.0-18.0) g/dl Hct 48.6 (42-52) % MCV 92.4 (80-98) fL MCH 32.9 (27.0-33.0) pg MCHC 35.6 (31.0-36.0) g/dl RDW 11.9 (11.0-16.0) % Plt Count 281 (160-400) X10*3/uL MPV 9.4 (9.4-12.4) fL Immature Gran % (Auto) 0.3 (0.0-0.4) % Neut % (Auto) 57.1 (45-73) % Lymph % (Auto) 31.7 (20-40) % [place] % (Auto) 8.7 (2-11) % Eos % (Auto) 1.8 (0-4) % Baso % (Auto) 0.4 (0-2) % Lymph # (Auto) 2.3 (1.2-4.9) X10*3/uL [place] # (Auto) 0.6 (0.1-1.2) X10*3/uL Eos # (Auto) 0.1 (0.0-0.4) X10*3/uL Baso # (Auto) 0.0 (0.0-0.2) X10*3/uL Abs Immat Gran (auto) 0.02 (0.00-0.03) X10*3/uL Absolute Neuts (auto) 4.1 (2.0-8.3) X10*3/uL Absolute Nucleated RBC 0.000 (0.0-0.012) X10*3/uL Nucleated RBC % (auto) 0.0 (0.0-0.2) /100WBC Sodium 139 (135-145) mmol/L Potassium 3.8 (3.3-5.1) mmol/L Chloride 105 (96-108) mmol/L Carbon Dioxide 24 (22-29) mmol/L Anion Gap 14 (12-20) BUN 11 (9-16) mg/dL Creatinine 0.99 (0.5-1.4) mg/dL Estim Creat Clear Calc 125.1 Estimated GFR > 60 Random Glucose 114 (60-115) mg/dL Calcium 9.6 (8.4-10.2) mg/dL Magnesium 2.2 (1.6-2.6) mg/dL Iron 225 H (45-160) mcg/dL TIBC 252 (228-428) mcg/dL % Saturation 89 H (15-50) % Unsat Iron Binding 27 ug/dL Ferritin 852 H (20-250) ng/mL Total Bilirubin 0.4 (0.0-1.0) mg/dL Direct Bilirubin < 0.2 (0.0-0.5) mg/dL AST 30 (5-37) U/L ALT 79 H (0-40) U/L Alkaline Phosphatase 98 (39-117) U/L Troponin I High Sens < 3.5 (<3.5-35.0) ng/L Total Protein 7.4 (6.5-8.0) g/dL Albumin 4.4 (3.5-5.0) g/dL Lipase 30 (8-78) U/L ECG Data Attestation: I personally reviewed and interpreted this ECG as follows: ECG interpretation date: 01/02/21 ECG interpretation time: 02:56 Interpretation: Rate: 84 Rhythm: NSR [place]: normal Normal P waves. Normal CRISTIANE. Normal QRS complex. ST T wave : normal no HECTOR qTC: normal prior studies: no acute ischemia The study has been interpreted contemporaneously by me. . Discharge Plan Discharge Clinical Impression: Arm paresthesia, left, Nausea, Heart palpitations Hemochromatosis Qualifiers: Hemochromatosis type: hereditary Qualified Code(s): E83.110 - Hereditary hemochromatosis Patient Disposition: Home, Self-Care Instructions: Acute Nausea and Vomiting (ED), Heart Palpitations (ED), Hemochromatosis (DC), Paresthesia (ED) Additional Instructions: return to ED for any worsening symptoms or concerns hemoglobin 17.3 Iron 225 Ferritin 852 Prescriptions: No Action esomeprazole magnesium [Nexium] 20 mg Capsule,Delayed Release(Dr/Ec) 20 mg PO DAILY PRN (Reason: Acid Reflux) RF: 0 albuterol sulfate [ProAir HFA] 90 mcg/actuation HFA aerosol inhaler 2 puff inhalation Q4-6H PRN (Reason: shortness of breath or wheezing) Qty: 8.5 RF: 0 Referrals: Shon Manning MD [Physician] - 1 week (call cardiology for appointment with holter monitor) ON LICENSE OF [facility] Past Medical History Attestation statement: The following information was validated with the patient. Medical History Anxiety Autosomal dominant hereditary hemochromatosis Dizziness HTN (hypertension) Mild intermittent allergic 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 Mood disorder Paresthesia Thyroid nodule Surgical History Hx of wisdom tooth extraction Family History Family History Father CLL (chronic lymphocytic leukemia) Diabetes Paternal Grandfather Diabetes Maternal Grandmother H/O heart bypass surgery Mother Drug abuse Social History Social History Alcohol intake: never Patient Tobacco Use Status: Never used Tobacco Use of substances other than those prescribed or required for medical reasons: No Advance Directives: No Advance Directives Information Provided: No
[2021-01-02 02:20] VITALS: BP 169/105; BP 170/92; PULSE 84; PULSE 89; RESP 13; TEMP 36.9; O2SAT 97; O2SAT 99; BMI 30.6
--- NOTE | 2021-01-02 02:28 | ECG_ITS ---
Test Reason : DIZZINESS Blood Pressure : / mmHG Vent. Rate : 084 BPM Atrial Rate : 084 BPM P-R Int : 146 ms QRS Dur : 076 ms QT Int : 358 ms P-R-T Axes : 054 060 046 degrees QTc Int : 423 ms Normal sinus rhythm with sinus arrhythmia Normal ECG No significant changes seen Referred By: Carrol Carrillo Electronically Signed By:AMY WATTS MD
[2021-01-02 02:57] VITALS: BP 150/94; PULSE 73; RESP 16; O2SAT 96
[2021-01-02] MEDS: 0.9 % Sodium Chloride 1,000 ML 999 ML IVCONT (02:59)
[2021-01-02] MEDS: ondansetron HCL 4 MG/2 ML VIAL IVPUSH (03:00)
[2021-01-02 03:02] LABS: MANUAL DIFF FLAG NO
[2021-01-02 03:16] LABS: Basophils Percent Auto 0.4 % (0-2); Eosinophils Absolute Auto 0.1 X10*3/uL (0.0-0.4); Eosinophils Percent Auto 1.8 % (0-4); Hematocrit 48.6 % (42-52); Hemoglobin 17.3 g/dl (14.0-18.0); Imm Gran Abs Auto 0.02 X10*3/uL (0.00-0.03); Imm Gran Pct Auto 0.3 % (0.0-0.4); Lymphocytes Absolute Auto 2.3 X10*3/uL (1.2-4.9); Lymphocytes Percent Auto 31.7 % (20-40); Mean Corpuscular HGB Conc 35.6 g/dl (31.0-36.0); Mean Corpuscular Hemoglobin 32.9 pg (27.0-33.0); Mean Corpuscular Volume 92.4 fL (80-98); Mean Platelet Volume 9.4 fL (9.4-12.4); Monocytes Absolute Auto 0.6 X10*3/uL (0.1-1.2); Monocytes Percent Auto 8.7 % (2-11); Neutrophils Absolute Auto 4.1 X10*3/uL (2.0-8.3); Neutrophils Percent Auto 57.1 % (45-73); Platelet Count 281 X10*3/uL (160-400); Red Blood Count 5.26 X10*6/uL (4.60-5.80); Red Cell Distribution Width 11.9 % (11.0-16.0); White Blood Count 7.1 X10*3/uL (4.8-10.8)
[2021-01-02 03:26] LABS: Alanine Aminotransferase 79 U/L (0-40); Albumin Level 4.4 g/dL (3.5-5.0); Alkaline Phosphatase 98 U/L (39-117); Anion Gap 14 (12-20); Aspartate Amino Transferase 30 U/L (5-37); Bilirubin Direct < 0.2 mg/dL (0.0-0.5); Bilirubin Total 0.4 mg/dL (0.0-1.0); Blood Urea Nitrogen 11 mg/dL (9-16); Calcium 9.6 mg/dL (8.4-10.2); Carbon Dioxide 24 mmol/L (22-29); Chloride 105 mmol/L (96-108); Creatinine Clr Calc Pharmacy 125.1; Estimated Glomerular Filt Rate > 60; Glucose Random 114 mg/dL (60-115); Iron 225 mcg/dL (45-160); Lipase 30 U/L (8-78); Magnesium 2.2 mg/dL (1.6-2.6); Percent Iron Saturation 89 % (15-50); Potassium 3.8 mmol/L (3.3-5.1); Sodium 139 mmol/L (135-145); Total Iron Binding Capacity 252 mcg/dL (228-428); Total Protein 7.4 g/dL (6.5-8.0); Troponin-I High Sensitivity < 3.5 ng/L (<3.5-35.0); Unsaturated Iron Binding 27 ug/dL
[2021-01-02 03:40] LABS: Ferritin 852 ng/mL (20-250)
[2021-01-02 04:12] VITALS: BP 135/86; PULSE 68; RESP 17; O2SAT 95
[2021-01-02 04:19] VITALS: BP 129/86; PULSE 68; RESP 20; O2SAT 95
== END 2021-01-02 05:00 | disposition home or self-care (01) ==
PROVIDERS: Emergency Provider Emergency Medicine
DX: R11.0 Nausea (principal); R20.2 Paresthesia of skin; R00.2 Palpitations; E83.110 Hereditary hemochromatosis; I10 Essential (primary) hypertension
CPT/HCPCS: 36415; 80048; 80076; 82728; 83540; 83690; 83735; 84484; 85025; 93005; 96361; 96374; 99284; J2405

== ENCOUNTER 2021-01-15 05:49 | Emergency (ER) | payer MEDICAID, SELFPAY ==
[2021-01-15 06:07] VITALS: BP 145/96; PULSE 83; O2SAT 99
[2021-01-15 06:11] VITALS: BP 142/89; PULSE 80; RESP 18; TEMP 36.8; O2SAT 96; BMI 30.4
--- NOTE | 2021-01-15 06:21 | PC.NURSE ---
pt requesting ddimer be run and education provided. pt offered chest xray due to reported shortness of breathe however he declined stating I'd rather not, I've had a lot of xrays . Pt awaiting labs
[2021-01-15 07:40] LABS: MANUAL DIFF FLAG NO
--- NOTE | 2021-01-15 07:48 | ED.GENADULT ---
HPI - General Adult General Chief complaint: Extremity Problem Stated complaint: sob/lt shoulder pain Time Seen by Provider: 01/15/21 07:48 Source: EMS Mode of arrival: EMS Limitations: no limitations History of Present Illness HPI narrative: patient had a sudden headache followed by palpitations and shortness of breath. Patient suffers from headaches patient has had prior head CT which were negative. Patient sees a neurologist for his headaches. patient always has palpitations and shortness of breath with his headaches. headache was left sided, quick and sharp Location: head Severity: moderate Quality: sharp Pain Consistency: now resolved Associated symptoms: chest pain, headaches and shortness of breath Related Data Home Medications Medication Instructions Recorded Confirmed esomeprazole magnesium 20 mg 20 mg PO DAILY PRN 11/12/20 11/12/20 capsule,delayed release (Nexium) Previous Rx's Medication Instructions Recorded albuterol sulfate 90 mcg/actuation 2 puff INHALATION Q4-6H PRN #8.5 g 11/03/20 aerosol inhaler (ProAir HFA) Allergies Allergy/AdvReac Type Severity Reaction Status Date / Time No Known Allergies Allergy Verified 11/02/20 23:26 Review of Systems Constitutional: Constitutional: Reports no additional constitutional complaints Eyes: Eyes: Reports no additional eye complaints ENT: Denies dizziness Cardiovascular: Cardiovascular: Reports no additional cardiovascular complaints Respiratory: Respiratory: Reports as per HPI Gastrointestinal: Gastrointestinal: Reports no additional gastrointestinal complaints Musculoskeletal: Musculoskeletal: Reports no additional musculoskeletal complaints Integumentary/Breasts: Skin/Breast: Denies rash Neurologic: Reports system reviewed and no additional complaints, except as documented, Denies dizziness and Denies Sensory deficit (Neuro) Psychiatric: Psychiatric: Denies anxiety PMF Past Medical History Medical History Anxiety Autosomal dominant hereditary hemochromatosis Dizziness HTN (hypertension) Mild intermittent allergic 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 Mood disorder Paresthesia Thyroid nodule Surgical History Hx of wisdom tooth extraction Family History Family History Father CLL (chronic lymphocytic leukemia) Diabetes Paternal Grandfather Diabetes Maternal Grandmother H/O heart bypass surgery Mother Drug abuse Social History Social History Alcohol intake: never Patient Tobacco Use Status: Never used Tobacco Use of substances other than those prescribed or required for medical reasons: No Advance Directives: No Physical Exam Vital Signs: Vital Signs: Last Vital Signs Temp 98.2 F 01/15/21 06:11 Pulse 80 01/15/21 06:11 Resp 18 01/15/21 06:11 BP 142/89 H 01/15/21 06:11 Pulse Ox 96 01/15/21 06:11 Body Mass Index 30.4 Const: General: healthy appearing Nutritional Appearance: average body habitus Orientation/consciousness: oriented to person and patient oriented x3 Limitations: no limitations HENMT: Head: Yes normal to inspection Ears: external ears normal General nose exam: Normal external nose present Mouth: Normal oral and palatal mucosa present and oropharynx normal Throat: Yes posterior oropharynx normal Eyes: General: appearance normal, both eyes and all related structures Neck: Other: supple Neck: Yes normal visual inspection Chest: Chest palpation & inspection: normal inspection of the chest Resp: Auscultation: clear to auscultation bilaterally Cardio: Jugular venous distension: no JVD Rate: regular rate Rhythm: regular rhythm Heart sounds: S1 normal heart sound present and S2 normal heart sound present GI: Inspection: Yes normal to inspection Palpation (GI): Soft to palpation, nontender and No hepatosplenomegaly present Auscultation: normal bowel sounds : General: Yes no CVA tenderness Back/Spine/Pelvis: Back: no CVA tenderness Skin: General skin exam: no rashes or lesions noted Neuro: General: oriented to person and patient oriented x3 Cranial nerves: Yes CN's II-XII intact bilaterally Motor exam (neuro): 5/5 motor strength present throughout Sensory Exam: No Sensory deficit (Neuro) Extrem: General: Yes normal to inspection Psych: Appearance: grossly normal Course Reevaluation(s) Reevaluation #1: no evidence of cardiac or pulmonary event. His hemachromatosis is at baseline and his markers are not terribly elevated for him. Will dc home Time: 10:13 Medical Decision Making Lab Data Result diagrams: 01/15/21 07:37 01/15/21 07:37 Labs: Lab Results 01/15/21 01/15/21 01/15/21 Range/Units 07:37 07:37 08:50 WBC 7.9 (4.8-10.8) X10*3/uL RBC 5.30 (4.60-5.80) X10*6/uL Hgb 17.3 (14.0-18.0) g/dl Hct 48.4 (42.0-52.0) % MCV 91.3 (80.0-98.0) fL MCH 32.6 (27.0-33.0) pg MCHC 35.7 (31.0-36.0) g/dl RDW 11.9 (11.0-16.0) % Plt Count 231 (160-400) X10*3/uL MPV 9.6 (9.4-12.4) fL Immature Gran % (Auto) 0.4 (0.0-0.4) % Neut % (Auto) 70.7 (45-73) % Lymph % (Auto) 20.8 (20-40) % [place] % (Auto) 7.1 (2-11) % Eos % (Auto) 0.6 (0-4) % Baso % (Auto) 0.4 (0-2) % Lymph # (Auto) 1.6 (1.2-4.9) X10*3/uL [place] # (Auto) 0.6 (0.1-1.2) X10*3/uL Eos # (Auto) 0.1 (0.0-0.4) X10*3/uL Baso # (Auto) 0.0 (0.0-0.2) X10*3/uL Abs Immat Gran (auto) 0.03 (0.00-0.03) X10*3/uL Absolute Neuts (auto) 5.6 (2.0-8.3) x10*3/uL Absolute Nucleated RBC 0.000 (0.0-0.012) X10*3/uL Nucleated RBC % (auto) 0.0 (0.0-0.2) /100WBC Sodium 137 (135-145) mmol/L Potassium 3.5 (3.3-5.1) mmol/L Chloride 104 (96-108) mmol/L Carbon Dioxide 27 (22-29) mmol/L Anion Gap 10 L (12-20) BUN 12 (9-16) mg/dL Creatinine 0.99 (0.5-1.4) mg/dL Estim Creat Clear Calc 124.8 Estimated GFR > 60 Fasting Glucose 98 (60-99) mg/dL Calcium 9.6 (8.4-10.2) mg/dL Iron 206 H (45-160) mcg/dL TIBC 277 (228-428) mcg/dL % Saturation 74 H (15-50) % Unsat Iron Binding 71 ug/dL Ferritin 686 H (20-250) ng/mL Troponin I High Sens (<3.5-35.0) ng/L 01/15/21 Range/Units 08:50 WBC (4.8-10.8) X10*3/uL RBC (4.60-5.80) X10*6/uL Hgb (14.0-18.0) g/dl Hct (42.0-52.0) % MCV (80.0-98.0) fL MCH (27.0-33.0) pg MCHC (31.0-36.0) g/dl RDW (11.0-16.0) % Plt Count (160-400) X10*3/uL MPV (9.4-12.4) fL Immature Gran % (Auto) (0.0-0.4) % Neut % (Auto) (45-73) % Lymph % (Auto) (20-40) % [place] % (Auto) (2-11) % Eos % (Auto) (0-4) % Baso % (Auto) (0-2) % Lymph # (Auto) (1.2-4.9) X10*3/uL [place] # (Auto) (0.1-1.2) X10*3/uL Eos # (Auto) (0.0-0.4) X10*3/uL Baso # (Auto) (0.0-0.2) X10*3/uL Abs Immat Gran (auto) (0.00-0.03) X10*3/uL Absolute Neuts (auto) (2.0-8.3) x10*3/uL Absolute Nucleated RBC (0.0-0.012) X10*3/uL Nucleated RBC % (auto) (0.0-0.2) /100WBC Sodium (135-145) mmol/L Potassium (3.3-5.1) mmol/L Chloride (96-108) mmol/L Carbon Dioxide (22-29) mmol/L Anion Gap (12-20) BUN (9-16) mg/dL Creatinine (0.5-1.4) mg/dL Estim Creat Clear Calc Estimated GFR Fasting Glucose (60-99) mg/dL Calcium (8.4-10.2) mg/dL Iron (45-160) mcg/dL TIBC (228-428) mcg/dL % Saturation (15-50) % Unsat Iron Binding ug/dL Ferritin (20-250) ng/mL Troponin I High Sens < 3.5 (<3.5-35.0) ng/L ECG Data Attestation: I personally reviewed and interpreted this ECG as follows: Interpretation: normal sinus rate of 75, no st or twave changes Discharge Plan Discharge Clinical Impression: Hemochromatosis Qualifiers: Hemochromatosis type: hereditary Qualified Code(s): E83.110 - Hereditary hemochromatosis Headache Qualifiers: Headache type: unspecified Headache chronicity pattern: acute headache Intractability: not intractable Qualified Code(s): R51.9 - Headache, unspecified Chest pain Qualifiers: Chest pain type: unspecified Qualified Code(s): R07.9 - Chest pain, unspecified Patient Disposition: Home, Self-Care Instructions: Hemochromatosis (DC), Acute Headache (ED), Noncardiac Chest Pain (ED) Prescriptions: No Action esomeprazole magnesium [Nexium] 20 mg Capsule,Delayed Release(Dr/Ec) 20 mg PO DAILY PRN (Reason: Acid Reflux) RF: 0 albuterol sulfate [ProAir HFA] 90 mcg/actuation HFA aerosol inhaler 2 puff inhalation Q4-6H PRN (Reason: shortness of breath or wheezing) Qty: 8.5 RF: 0 Referrals: Kaylie Cardona MD [Primary Care Provider] - 5 days
[2021-01-15 07:49] LABS: Basophils Percent Auto 0.4 % (0-2); Eosinophils Absolute Auto 0.1 X10*3/uL (0.0-0.4); Eosinophils Percent Auto 0.6 % (0-4); Hematocrit 48.4 % (42.0-52.0); Hemoglobin 17.3 g/dl (14.0-18.0); Imm Gran Abs Auto 0.03 X10*3/uL (0.00-0.03); Imm Gran Pct Auto 0.4 % (0.0-0.4); Lymphocytes Absolute Auto 1.6 X10*3/uL (1.2-4.9); Lymphocytes Percent Auto 20.8 % (20-40); Mean Corpuscular HGB Conc 35.7 g/dl (31.0-36.0); Mean Corpuscular Hemoglobin 32.6 pg (27.0-33.0); Mean Corpuscular Volume 91.3 fL (80.0-98.0); Mean Platelet Volume 9.6 fL (9.4-12.4); Monocytes Absolute Auto 0.6 X10*3/uL (0.1-1.2); Monocytes Percent Auto 7.1 % (2-11); Neutrophils Absolute Auto 5.6 x10*3/uL (2.0-8.3); Neutrophils Percent Auto 70.7 % (45-73); Platelet Count 231 X10*3/uL (160-400); Red Cell Distribution Width 11.9 % (11.0-16.0); White Blood Count 7.9 X10*3/uL (4.8-10.8)
--- NOTE | 2021-01-15 07:54 | ECG_ITS ---
Test Reason : dyspnea Blood Pressure : / mmHG Vent. Rate : 077 BPM Atrial Rate : 077 BPM P-R Int : 138 ms QRS Dur : 080 ms QT Int : 376 ms P-R-T Axes : 037 052 029 degrees QTc Int : 425 ms Normal sinus rhythm Nonspecific ST abnormality Borderline ECG When compared with ECG of 02-JAN-2021 02:54, No significant change was found Referred By: Kentrell Gomez Electronically Signed By:AMY WATTS MD
[2021-01-15 07:57] LABS: Anion Gap 10 (12-20); Blood Urea Nitrogen 12 mg/dL (9-16); Calcium 9.6 mg/dL (8.4-10.2); Carbon Dioxide 27 mmol/L (22-29); Chloride 104 mmol/L (96-108); Creatinine Clr Calc Pharmacy 124.8; Estimated Glomerular Filt Rate > 60; Glucose Fasting 98 mg/dL (60-99); Potassium 3.5 mmol/L (3.3-5.1); Sodium 137 mmol/L (135-145)
[2021-01-15 09:14] LABS: Iron 206 mcg/dL (45-160); Percent Iron Saturation 74 % (15-50); Total Iron Binding Capacity 277 mcg/dL (228-428); Unsaturated Iron Binding 71 ug/dL
[2021-01-15 09:19] LABS: Troponin-I High Sensitivity < 3.5 ng/L (<3.5-35.0)
[2021-01-15 09:34] LABS: Ferritin 686 ng/mL (20-250)
== END 2021-01-15 10:29 | disposition home or self-care (01) ==
PROVIDERS: Emergency Provider Emergency Medicine; PCP Student in an Organized Health Care Education/Training Program
DX: R07.9 Chest pain, unspecified (principal); R51.9 Headache, unspecified; E83.110 Hereditary hemochromatosis; R06.02 Shortness of breath; I10 Essential (primary) hypertension
CPT/HCPCS: 36415; 80048; 82728; 83540; 84484; 85025; 93005; 99283; 99284

== ENCOUNTER → 2021-01-20 13:20 | Outpatient (BNVA) | payer MEDICAID, SELFPAY | PROVIDERS: PCP Student in an Organized Health Care Education/Training Program; Visit Provider Nurse Practitioner Family | DX: E83.110 Hereditary hemochromatosis (principal); R07.89 Other chest pain; R00.2 Palpitations; R68.89 Other general symptoms and signs | CPT/HCPCS: 99202 ==

== ENCOUNTER 2021-01-21 06:44 | Emergency (ER) | payer MEDICAID, SELFPAY ==
--- NOTE | 2021-01-21 06:45 | ECG_ITS ---
Test Reason : CP Blood Pressure : / mmHG Vent. Rate : 068 BPM Atrial Rate : 068 BPM P-R Int : 148 ms QRS Dur : 076 ms QT Int : 388 ms P-R-T Axes : 030 044 027 degrees QTc Int : 412 ms Normal sinus rhythm Normal ECG When compared with ECG of 15-JAN-2021 08:05, No significant change was found Referred By: Brie Talley Electronically Signed By:AMY WATTS MD
[2021-01-21 06:50] VITALS: BP 147/93; BP 158/86; PULSE 76; PULSE 79; RESP 18; TEMP 36.8; O2SAT 96; BMI 28.0
--- NOTE | 2021-01-21 06:53 | ED.ANXIETY ---
HPI - Anxiety General Chief Complaint: Chest Pain Stated Complaint: chest pain Time Seen by Provider: 01/21/21 06:45 Source: patient Mode of arrival: EMS Limitations: no limitations History of Present Illness HPI narrative: 35-year-old male past medical history significant for hypertension, thyroid nodule, hemochromatosis, anxiety presents to the emergency department with concerns of chest pain, hypertension and itching/stinging veins and arteries X1 year. Patient states that he cannot tell me when his main complaint is, he states all of this is making him worried. He states that this morning he woke up, immediately took his blood pressure was 140/108, he stated that he started becoming preoccupied and decided to call an ambulance. He tells me his chest pain is all over his chest, and he cannot pinpoint exactly where it hurts. He states that this is not normal. He mentions that he saw operations manager/coordinator yesterday who told him he had blood pressure variation between 2 arms. He states he is very worried. He also tells me that his veins, arteries and nerves itch and sting, and he knows that this is something that is bad. Patient denies drugs, alcohol and tobacco use. Patient states he does not feel anxious or depressed. He denies shortness of breath, fevers, chills, nausea, vomiting, abdominal pain, weakness. To note, patient states he has been seen in the ED on several occasions. MD complaint: other (chest pain ) Onset (ago): year(s) (1) Symptoms: chest pain and extremity numbness/tingling Severity: severe Quality: constant Place: home History of similar episodes: Yes Provoking factors: none known Relieving factors: nothing Exacerbating factors: nothing Associated symptoms: chest pain Related Data Home Medications Medication Instructions Recorded Confirmed esomeprazole magnesium 20 mg 20 mg PO DAILY PRN 11/12/20 01/20/21 capsule,delayed release (Nexium) aspirin 81 mg tablet,delayed 324 mg PO DAILY PRN tab 01/20/21 01/20/21 release (Adult Aspirin Regimen) Previous Rx's Medication Instructions Recorded albuterol sulfate 90 mcg/actuation 2 puff INHALATION Q4-6H PRN #8.5 g 11/03/20 aerosol inhaler (ProAir HFA) Allergies Allergy/AdvReac Type Severity Reaction Status Date / Time No Known Allergies Allergy Verified 01/20/21 13:36 Review of Systems Review of Systems: Constitutional : No Weight loss, No Fever, No Chills, No Fatigue, No Malaise ENT/Mouth : No sore throat, No Rhinorrhea Eyes: No Eye Pain, No Swelling, No Redness Cardiovascular : + Chest Pain, No SOB, No Dyspnea on Exertion, No Orthopnea, No Edema, No Palpitations Respiratory : No Cough, No Sputum, No Wheezing Gastrointestinal : No Nausea, No Vomiting, No Diarrhea, No Constipation, No abdominal Pain, No Hematochezia, No Melena Genitourinary : No Dysuria, No Urinary Frequency, No Hematuria, Musculoskeletal : No joint pain, No Myalgias, No Joint Swelling Skin : No Skin Lesions, No rash Neuro : No Weakness, No Numbness, No Dizziness, No Headache, + paresthesias Psych : No Anxiety/Panic, No Depression All other systems reviewed and are negative [facility] Past Medical History Attestation statement: The following information was validated with the patient. Source: old records reviewed and nursing notes reviewed Medical History Anxiety Autosomal dominant hereditary hemochromatosis Dizziness HTN (hypertension) Mild intermittent allergic 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 Mood disorder Paresthesia Thyroid nodule Surgical History Hx of wisdom tooth extraction Family History Family History Father CLL (chronic lymphocytic leukemia) Diabetes Paternal Grandfather Diabetes Maternal Grandmother H/O heart bypass surgery Mother Drug abuse Social History Social History Alcohol intake: never Patient Tobacco Use Status: Never used Tobacco Use of substances other than those prescribed or required for medical reasons: No Advance Directives: No Advance Directives Information Provided: No Physical Exam Vital Signs: Vital Signs: Last Vital Signs Temp 98.2 F 01/21/21 06:50 Pulse 76 01/21/21 10:12 Resp 16 01/21/21 10:12 BP 125/80 01/21/21 10:12 Pulse Ox 97 01/21/21 10:12 Body Mass Index 28.0 Appearance: Alert.? Oriented X3.? No acute distress.? Patient is speaking rapidly, patient appears anxious and paranoid. Head: Normocephalic, atraumatic, no step-offs or deformities Eyes: Pupils equal, round and reactive to light.? ENT: Pharynx normal.? Neck: Normal inspection.? Neck supple.? CVS: Normal heart rate and rhythm.? Pulses normal.? Respiratory: No respiratory distress.? Breath sounds normal.? Abdomen: Soft and nontender.? Skin: Skin warm and dry.? Normal skin color.? Normal skin turgor.? Extremities: No lower extremity edema.? No calf ttp. 5/5 strength to bilateral upper and lower extremities Back: No midline tenderness, no C-spine tenderness, full range of motion, no CVA tenderness bilaterally Neuro: Oriented X 3.? No motor deficit.? No sensory deficit. CN 2-12 intact Course Reevaluation(s) Reevaluation #1: Patient refuses chest xray. Time: 07:03 Reevaluation #2: Labs show no acute infection, no anemia no electrolyte abnormalities. ALT noted to be slightly higher than usual. Troponin negative. EKG shows no acute changes. TSH pending. Utox pending. Time: 08:05 Reevaluation #3: Patients symptoms likely secondary to anxiety, low concern for ACS normal EKG and negative trop. MDM - Anxiety MDM Narrative Medical decision making narrative: [id number] This is a 35-year-old male past medical history significant for hemochromatosis, thyroid nodule, hypertension, anxiety presenting to the emergency department with complaints of generalized severe chest pain and, itching/stinging veins and arteries X1 year. Patient denies anxiety although he appears to be having a panic attack currently. Seen by cardiology yesterday, per patient was told his BP varried between arms. Denies drug, tobacco and alcohol use. Upon physical examination patient appears to be in no distress, he is sitting upright speaking full sentences, he is speaking rapidly and appears to be paranoid and an acute panic attack. Although patient denies. S1-S2 appreciated free of murmurs. Lungs are clear to auscultation. Abdomen soft nontender nondistended. No focal neuro deficits. Cranial nerves 2-12 intact. Vital signs are stable, he is noted to be slightly hypertensive however, patient appears very anxious. Plan at this time is to obtain a cardiac workup including EKG, troponin, basic labs, drug abuse screening. Medical Records Attestation: I reviewed the patient's medical records. Lab Data Attestation: I reviewed the patient's lab results. Result diagrams: 01/21/21 07:31 01/21/21 07:31 Labs: Lab Results 01/21/21 01/21/21 01/21/21 Range/Units 07:31 07:31 07:31 WBC 5.9 (4.8-10.8) X10*3/uL RBC 5.21 (4.60-5.80) X10*6/uL Hgb 17.2 (14.0-18.0) g/dl Hct 47.6 (42.0-52.0) % MCV 91.4 (80.0-98.0) fL MCH 33.0 (27.0-33.0) pg MCHC 36.1 H (31.0-36.0) g/dl RDW 11.7 (11.0-16.0) % Plt Count 221 (160-400) X10*3/uL MPV 9.7 (9.4-12.4) fL Immature Gran % (Auto) 0.3 (0.0-0.4) % Neut % (Auto) 55.6 (45-73) % Lymph % (Auto) 33.4 (20-40) % Bland % (Auto) 8.0 (2-11) % Eos % (Auto) 2.0 (0-4) % Baso % (Auto) 0.7 (0-2) % Lymph # (Auto) 2.0 (1.2-4.9) X10*3/uL Bland # (Auto) 0.5 (0.1-1.2) X10*3/uL Eos # (Auto) 0.1 (0.0-0.4) X10*3/uL Baso # (Auto) 0.0 (0.0-0.2) X10*3/uL Abs Immat Gran (auto) 0.02 (0.00-0.03) X10*3/uL Absolute Neuts (auto) 3.3 (2.0-8.3) x10*3/uL Absolute Nucleated RBC 0.000 (0.0-0.012) X10*3/uL Nucleated RBC % (auto) 0.0 (0.0-0.2) /100WBC Sodium 138 (135-145) mmol/L Potassium 3.9 (3.3-5.1) mmol/L Chloride 103 (96-108) mmol/L Carbon Dioxide 29 (22-29) mmol/L Anion Gap 10 L (12-20) BUN 11 (9-16) mg/dL Creatinine 1.00 (0.5-1.4) mg/dL Estim Creat Clear Calc 122.7 Estimated GFR > 60 Random Glucose 89 (60-115) mg/dL Calcium 9.6 (8.4-10.2) mg/dL Magnesium 2.4 (1.6-2.6) mg/dL Total Bilirubin 0.7 (0.0-1.0) mg/dL AST 33 (5-37) U/L ALT 85 H (0-40) U/L Alkaline Phosphatase 85 (39-117) U/L Troponin I High Sens (<3.5-35.0) ng/L Total Protein 7.1 (6.5-8.0) g/dL Albumin 4.3 (3.5-5.0) g/dL TSH COVID-19 ([facility]) Negative (Negative) COVID-19 Clin Com See Note 01/21/21 01/21/21 01/21/21 Range/Units 07:31 07:31 07:31 WBC (4.8-10.8) X10*3/uL RBC (4.60-5.80) X10*6/uL Hgb (14.0-18.0) g/dl Hct (42.0-52.0) % MCV (80.0-98.0) fL MCH (27.0-33.0) pg MCHC (31.0-36.0) g/dl RDW (11.0-16.0) % Plt Count (160-400) X10*3/uL MPV (9.4-12.4) fL Immature Gran % (Auto) (0.0-0.4) % Neut % (Auto) (45-73) % Lymph % (Auto) (20-40) % Bland % (Auto) (2-11) % Eos % (Auto) (0-4) % Baso % (Auto) (0-2) % Lymph # (Auto) (1.2-4.9) X10*3/uL Bland # (Auto) (0.1-1.2) X10*3/uL Eos # (Auto) (0.0-0.4) X10*3/uL Baso # (Auto) (0.0-0.2) X10*3/uL Abs Immat Gran (auto) (0.00-0.03) X10*3/uL Absolute Neuts (auto) (2.0-8.3) x10*3/uL Absolute Nucleated RBC (0.0-0.012) X10*3/uL Nucleated RBC % (auto) (0.0-0.2) /100WBC Sodium (135-145) mmol/L Potassium (3.3-5.1) mmol/L Chloride (96-108) mmol/L Carbon Dioxide (22-29) mmol/L Anion Gap (12-20) BUN (9-16) mg/dL Creatinine (0.5-1.4) mg/dL Estim Creat Clear Calc Estimated GFR Random Glucose (60-115) mg/dL Calcium (8.4-10.2) mg/dL Magnesium (1.6-2.6) mg/dL Total Bilirubin (0.0-1.0) mg/dL AST (5-37) U/L ALT (0-40) U/L Alkaline Phosphatase (39-117) U/L Troponin I High Sens < 3.5 (<3.5-35.0) ng/L Total Protein (6.5-8.0) g/dL Albumin (3.5-5.0) g/dL TSH Cancelled 3.68 COVID-19 ([facility]NA) (Negative) COVID-19 Clin Com ECG Data Attestation: I personally reviewed and interpreted this ECG as follows: ECG interpretation date: 01/21/21 ECG interpretation time: 07:05 Prior ECG tracings: available for review Interpretation: Ventricular rate of 68, GA normal QRS normal QTC/QTC normal. EKG shows normal sinus rhythm, no ST elevations or inversions. No acute ischemia. No significant changes when compared to EKG from January 15, 2021. Critical Care Time Critical Care Time Critical Care Time: No Discharge Plan Discharge Clinical Impression: Chest discomfort, Anxiety Patient Disposition: Home, Self-Care Instructions: Anxiety (ED), Chest Wall Pain (ED), Panic Attack (ED) Additional Instructions: Follow-up with your primary care provider this week. Return to the emergency department with new or worsening symptoms. In case of emergency call 911 Prescriptions: No Action esomeprazole magnesium [Nexium] 20 mg Capsule,Delayed Release(Dr/Ec) 20 mg PO DAILY PRN (Reason: Acid Reflux) RF: 0 albuterol sulfate [ProAir HFA] 90 mcg/actuation HFA aerosol inhaler 2 puff inhalation Q4-6H PRN (Reason: shortness of breath or wheezing) Qty: 8.5 RF: 0 aspirin [Adult Aspirin Regimen] 81 mg tablet,delayed release (DR/EC) 324 mg PO DAILY PRN (Reason: tachycardia) RF: 0 Referrals: Cuca Jones, [facility] [employer] [employer]P[facility]-C [Nurse Practitioner] - 1 week Physician,Unknown J [Primary Care Provider] - 2 days Interventions: ED Discharge Assessment Last Done: 01/21/21 10:12 Discharge Date/Time: 01/21/21 10:13
[2021-01-21 07:07] VITALS: PULSE 76
[2021-01-21 07:20] VITALS: BP 130/90; PULSE 74; RESP 18
[2021-01-21 07:38] LABS: MANUAL DIFF FLAG NO
[2021-01-21 07:40] LABS: Basophils Percent Auto 0.7 % (0-2); Eosinophils Absolute Auto 0.1 X10*3/uL (0.0-0.4); Hematocrit 47.6 % (42.0-52.0); Hemoglobin 17.2 g/dl (14.0-18.0); Imm Gran Abs Auto 0.02 X10*3/uL (0.00-0.03); Imm Gran Pct Auto 0.3 % (0.0-0.4); Lymphocytes Percent Auto 33.4 % (20-40); Mean Corpuscular HGB Conc 36.1 g/dl (31.0-36.0); Mean Corpuscular Volume 91.4 fL (80.0-98.0); Mean Platelet Volume 9.7 fL (9.4-12.4); Monocytes Absolute Auto 0.5 X10*3/uL (0.1-1.2); Neutrophils Absolute Auto 3.3 x10*3/uL (2.0-8.3); Neutrophils Percent Auto 55.6 % (45-73); Platelet Count 221 X10*3/uL (160-400); Red Blood Count 5.21 X10*6/uL (4.60-5.80); Red Cell Distribution Width 11.7 % (11.0-16.0); White Blood Count 5.9 X10*3/uL (4.8-10.8)
[2021-01-21 07:54] LABS: COVID-19 Test Negative (Negative)
[2021-01-21 07:56] LABS: Alanine Aminotransferase 85 U/L (0-40); Albumin Level 4.3 g/dL (3.5-5.0); Alkaline Phosphatase 85 U/L (39-117); Anion Gap 10 (12-20); Aspartate Amino Transferase 33 U/L (5-37); Bilirubin Total 0.7 mg/dL (0.0-1.0); Blood Urea Nitrogen 11 mg/dL (9-16); Calcium 9.6 mg/dL (8.4-10.2); Carbon Dioxide 29 mmol/L (22-29); Chloride 103 mmol/L (96-108); Creatinine Clr Calc Pharmacy 122.7; Estimated Glomerular Filt Rate > 60; Glucose Random 89 mg/dL (60-115); Magnesium 2.4 mg/dL (1.6-2.6); Potassium 3.9 mmol/L (3.3-5.1); Sodium 138 mmol/L (135-145); Total Protein 7.1 g/dL (6.5-8.0)
[2021-01-21 08:01] LABS: Troponin-I High Sensitivity < 3.5 ng/L (<3.5-35.0)
[2021-01-21 08:17] LABS: TSH reflex Free T4 3.68 uIU/mL (0.32-4.0)
[2021-01-21 10:12] VITALS: BP 125/80; PULSE 76; RESP 16; O2SAT 97
== END 2021-01-21 10:13 | disposition home or self-care (01) ==
PROVIDERS: Physician Assistant; Emergency Provider Emergency Medicine Emergency Medical Services
DX: R07.89 Other chest pain (principal); F41.9 Anxiety disorder, unspecified; I10 Essential (primary) hypertension; Z20.822 Contact with and (suspected) exposure to COVID-19
CPT/HCPCS: 36415; 80053; 83735; 84443; 84484; 85025; 87635; 93005; 99284; 99285

== ENCOUNTER 2021-01-22 13:26 | Outpatient (REF) | payer MEDICAID, SELFPAY | END 2021-01-22 13:27 | disposition home or self-care (01) | LOC: HO.BBR 13:26 | PROVIDERS: Visit Provider Internal Medicine | DX: Z13.89 Encounter for screening for other disorder (principal) ==

== ENCOUNTER 2021-02-13 14:26 | Outpatient (REF) | payer MEDICAID, SELFPAY ==
--- NOTE | ~2021-02-13 | US_ITS ---
EXAMINATION: US EXTRACRANIAL CAROTID DUPLEX, BILATERAL CLINICAL INFORMATION: Palpitations. COMPARISON: None TECHNIQUE: Real-time ultrasound and Doppler techniques (integrating B-mode 2-D vascular images, Doppler spectral analysis and color-flow Doppler imaging) were utilized to interrogate the extracranial carotid arteries, the vertebral arteries and proximal subclavian arteries bilaterally. The degree of stenosis is determined by criteria similar to NASCET. FINDINGS: Right Side: 1. There is no atherosclerotic plaque seen in the bifurcation/proximal ICA region. 2. The common carotid artery PSV proximally is 125 cm/s and distally 101 cm/s. 3. The proximal internal carotid artery velocities are 83.3 cm/s systolic and 27 cm/s diastolic. 4. The proximal external carotid artery PSV is 111 cm/s. 5. The vertebral artery shows antegrade flow. 6. The subclavian artery waveforms are normal. Left Side: 1. There is no atherosclerotic plaque seen in the bifurcation/proximal ICA region. 2. The common carotid artery PSV proximally is 124 cm/s and distally 118 cm/s. 3. The proximal internal carotid artery velocities are 97.4 cm/s systolic and 21.2 cm/s diastolic. 4. The proximal external carotid artery PSV is 92.6 cm/s. 5. The vertebral artery shows 37.7 flow. 6. The subclavian artery waveforms are 167. US/US carotid duplex BI IMPRESSION: 1. RIGHT: Normal right internal carotid artery without atherosclerotic plaque or hemodynamically significant stenosis. 2. LEFT: Normal left internal carotid artery without atherosclerotic plaque or hemodynamically significant stenosis.
[2021-02-13 16:56] LABS: Estimated Average Glucose 88 mg/dL; Hemoglobin A1c % 4.7 %
[2021-02-13 16:59] LABS: Alanine Aminotransferase 50 U/L (0-40); Albumin Level 4.3 g/dL (3.5-5.0); Alkaline Phosphatase 81 U/L (39-117); Anion Gap 14 (12-20); Aspartate Amino Transferase 25 U/L (5-37); Bilirubin Direct 0.3 mg/dL (0.0-0.5); Bilirubin Total 0.8 mg/dL (0.0-1.0); Blood Urea Nitrogen 15 mg/dL (9-16); Carbon Dioxide 27 mmol/L (22-29); Chloride 102 mmol/L (96-108); Cholesterol 208 mg/dL; Estimated Glomerular Filt Rate > 60; Glucose Random 87 mg/dL (60-115); HDL Cholesterol 30 mg/dL; LDL Cholesterol Calculated 157 mg/dl; Lipase 88 U/L (8-78); Potassium 4.3 mmol/L (3.3-5.1); Sodium 139 mmol/L (135-145); Total Protein 7.2 g/dL (6.5-8.0); Triglycerides 106 mg/dL
== END 2021-02-13 14:27 | disposition home or self-care (01) ==
LOC: HO.HMGCX 14:26
PROVIDERS: Absent Provider Pediatrics; PCP Student in an Organized Health Care Education/Training Program; Visit Provider Nurse Practitioner Family
DX: R10.13 Epigastric pain (principal); E83.118 Other hemochromatosis; R00.2 Palpitations; R68.89 Other general symptoms and signs
CPT/HCPCS: 36415; 80053; 80061; 82248; 83036; 83690; 93880

== ENCOUNTER 2021-02-15 00:12 | Emergency (ER) | payer MEDICAID, SELFPAY ==
--- NOTE | 2021-02-15 00:17 | ED.CHESTPAIN ---
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 [employer] and this time complaining of left lower chest back spasms of feels slightly anxious denies any shortness of breath Related Data Home Medications Medication Instructions Recorded Confirmed esomeprazole magnesium 20 mg 20 mg PO DAILY PRN 11/12/20 01/20/21 capsule,delayed release (Nexium) aspirin 81 mg tablet,delayed 324 mg PO DAILY PRN tab 01/20/21 01/20/21 release (Adult Aspirin Regimen) Previous Rx's Medication Instructions Recorded albuterol sulfate 90 mcg/actuation 2 puff INHALATION Q4-6H PRN #8.5 g 11/03/20 aerosol inhaler (ProAir HFA) Allergies Allergy/AdvReac Type Severity Reaction Status Date / Time No Known Allergies Allergy Verified 01/20/21 13:36 Review of Systems Review of Systems: Yes all other systems are reviewed and are negative [facility] Past Medical History Medical History Anxiety Autosomal dominant hereditary hemochromatosis Dizziness HTN (hypertension) Mild intermittent allergic 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 Mood disorder Paresthesia Thyroid nodule Surgical History Hx of wisdom tooth extraction Family History Family History Father CLL (chronic lymphocytic leukemia) Diabetes Paternal Grandfather Diabetes Maternal Grandmother H/O heart bypass surgery Mother Drug abuse Social History Social History Alcohol intake: never Patient Tobacco Use Status: Never used Tobacco Advance Directives: No Advance Directives Information Provided: Yes Physical Exam Vital Signs: Vital Signs: Last Vital Signs Temp 99.0 F 02/15/21 00:30 Pulse 80 02/15/21 00:30 Resp 16 02/15/21 00:30 BP 154/90 H 02/15/21 00:30 Pulse Ox 99 02/15/21 00:30 BMI result Body Mass Index 29.5 Appearance: Alert. Oriented X3. No acute distress. Anxious Eyes: No pallor or icterus ENT: Pharynx normal. Oral Mucosa moist Neck: Normal inspection. Neck supple. CVS: Normal heart rate and rhythm. Pulses normal. Respiratory: No respiratory distress. Equal air entry bilateral, no wheezing/rales/rhonchi Abdomen: Soft and nontender. Bowel sounds are present, no mass palpable, no CVA tenderness Skin: Skin warm and dry. Normal skin color. Normal skin turgor. Extremities: No lower extremity edema. No calf tenderness Neuro: Oriented X 3. MDM - Chest Pain MDM Narrative Medical decision making narrative: Patient with multiple complaints with similar complaints in the past workup negative blood pressure improved to 134/90 feels relaxed after Ativan p.o. check further labs EKG without any acute ST T wave changes plan to discharge patient home Lab Data Result diagrams: 02/15/21 02:10 02/15/21 02:10 Labs: Lab Results 02/15/21 Range/Units 02:10 WBC 8.2 (4.8-10.8) X10*3/uL RBC 5.62 (4.60-5.80) X10*6/uL Hgb 18.5 H (14.0-18.0) g/dl Hct 51.5 (42.0-52.0) % MCV 91.6 (80.0-98.0) fL MCH 32.9 (27.0-33.0) pg MCHC 35.9 (31.0-36.0) g/dl RDW 11.4 (11.0-16.0) % Plt Count 233 (160-400) X10*3/uL MPV 9.8 (9.4-12.4) fL Immature Gran % (Auto) 0.2 (0.0-0.4) % Neut % (Auto) 74.6 H (45-73) % Lymph % (Auto) 17.5 L (20-40) % [place] % (Auto) 6.6 (2-11) % Eos % (Auto) 0.4 (0-4) % Baso % (Auto) 0.7 (0-2) % Lymph # (Auto) 1.4 (1.2-4.9) X10*3/uL [place] # (Auto) 0.5 (0.1-1.2) X10*3/uL Eos # (Auto) 0.0 (0.0-0.4) X10*3/uL Baso # (Auto) 0.1 (0.0-0.2) X10*3/uL Abs Immat Gran (auto) 0.02 (0.00-0.03) X10*3/uL Absolute Neuts (auto) 6.1 (2.0-8.3) x10*3/uL Absolute Nucleated RBC 0.000 (0.0-0.012) X10*3/uL Nucleated RBC % (auto) 0.0 (0.0-0.2) /100WBC ECG Data ECG #1: Attestation: I personally reviewed and interpreted this ECG as follows: Interpretation: Normal sinus rhythm heart rate 74 beats per minute normal intervals normal axis no acute ST-T changes normal EKG Discharge Plan Discharge Clinical Impression: Muscle spasm Anxiety disorder Qualifiers: Anxiety disorder type: generalized anxiety disorder Qualified Code(s): F41.1 - Generalized anxiety disorder Patient Disposition: Home, Self-Care Instructions: Muscle Spasm (ED), Anxiety (ED) Additional Instructions: Drink plenty of fluids Rest at home Follow with PCP as needed Prescriptions: No Action esomeprazole magnesium [Nexium] 20 mg Capsule,Delayed Release(Dr/Ec) 20 mg PO DAILY PRN (Reason: Acid Reflux) RF: 0 albuterol sulfate [ProAir HFA] 90 mcg/actuation HFA aerosol inhaler 2 puff inhalation Q4-6H PRN (Reason: shortness of breath or wheezing) Qty: 8.5 RF: 0 aspirin [Adult Aspirin Regimen] 81 mg tablet,delayed release (DR/EC) 324 mg PO DAILY PRN (Reason: tachycardia) RF: 0
[2021-02-15 00:30] VITALS: BP 154/90; BP 214/102; PULSE 108; PULSE 80; RESP 16; TEMP 37.2; O2SAT 99; BMI 29.5
--- NOTE | 2021-02-15 00:33 | ECG_ITS ---
Test Reason : CHEST PAIN Blood Pressure : / mmHG Vent. Rate : 074 BPM Atrial Rate : 074 BPM P-R Int : 148 ms QRS Dur : 080 ms QT Int : 372 ms P-R-T Axes : 057 062 049 degrees QTc Int : 412 ms Normal sinus rhythm Normal ECG When compared with ECG of 21-JAN-2021 07:05, No significant change was found Referred By: Sam Schneider Electronically Signed By:Willie Marin
[2021-02-15] MEDS: LORazepam 1 MG TABLET 2 MG PO (00:38)
[2021-02-15 02:14] LABS: PLT CLUMP 1; Red Cell Distribution Width 11.4 % (11.0-16.0); SCAN SMEAR FLAG 1
[2021-02-15 02:16] LABS: Basophils Absolute Auto 0.1 X10*3/uL (0.0-0.2); Basophils Percent Auto 0.7 % (0-2); Eosinophils Percent Auto 0.4 % (0-4); Hematocrit 51.5 % (42.0-52.0); Hemoglobin 18.5 g/dl (14.0-18.0); Imm Gran Abs Auto 0.02 X10*3/uL (0.00-0.03); Imm Gran Pct Auto 0.2 % (0.0-0.4); Lymphocytes Absolute Auto 1.4 X10*3/uL (1.2-4.9); Lymphocytes Percent Auto 17.5 % (20-40); Mean Corpuscular HGB Conc 35.9 g/dl (31.0-36.0); Mean Corpuscular Hemoglobin 32.9 pg (27.0-33.0); Mean Corpuscular Volume 91.6 fL (80.0-98.0); Mean Platelet Volume 9.8 fL (9.4-12.4); Monocytes Absolute Auto 0.5 X10*3/uL (0.1-1.2); Monocytes Percent Auto 6.6 % (2-11); Neutrophils Absolute Auto 6.1 x10*3/uL (2.0-8.3); Neutrophils Percent Auto 74.6 % (45-73); Red Blood Count 5.62 X10*6/uL (4.60-5.80)
[2021-02-15 02:18] LABS: MANUAL DIFF FLAG NO; Platelet Count 233 X10*3/uL (160-400); White Blood Count 8.2 X10*3/uL (4.8-10.8)
[2021-02-15 02:35] VITALS: BP 134/84; PULSE 76; RESP 16; O2SAT 96
[2021-02-15 02:40] LABS: Anion Gap 14 (12-20); Blood Urea Nitrogen 15 mg/dL (9-16); Calcium 9.9 mg/dL (8.4-10.2); Carbon Dioxide 24 mmol/L (22-29); Chloride 106 mmol/L (96-108); Estimated Glomerular Filt Rate > 60; Glucose Random 90 mg/dL (60-115); Potassium 4.4 mmol/L (3.3-5.1); Sodium 140 mmol/L (135-145)
[2021-02-15 02:48] LABS: Troponin-I High Sensitivity < 3.5 ng/L (<3.5-35.0)
== END 2021-02-15 03:39 | disposition home or self-care (01) ==
PROVIDERS: Emergency Provider Internal Medicine
DX: M62.838 Other muscle spasm (principal); F41.1 Generalized anxiety disorder; I10 Essential (primary) hypertension
CPT/HCPCS: 36415; 80048; 84484; 85025; 93005; 99283; 99284

== ENCOUNTER 2021-02-16 13:32 | Outpatient (REF) | payer MEDICAID, SELFPAY | END 2021-02-16 13:33 | disposition home or self-care (01) | LOC: HO.BBR 13:32 | PROVIDERS: Visit Provider Internal Medicine | DX: Z13.89 Encounter for screening for other disorder (principal) ==

== ENCOUNTER 2021-02-20 23:53 | Emergency (ER) | payer MEDICAID, SELFPAY ==
[2021-02-20 23:57] VITALS: BP 155/106; PULSE 104; O2SAT 98
[2021-02-21 00:02] VITALS: BP 154/106; PULSE 116; RESP 20; TEMP 37.2; O2SAT 96; BMI 29.5
--- NOTE | 2021-02-21 01:12 | ED.GENADULT ---
HPI - General Adult General Chief complaint: Back Pain/Injury Stated complaint: numbness Time Seen by Provider: 02/21/21 01:12 Source: patient Mode of arrival: EMS Limitations: no limitations History of Present Illness HPI narrative: Patient was told to come to the ED for numbness around his back, took his BP which 141/111, called his coverage and they told him to come to the ED. Onset (ago): hour(s) Severity: mild Quality: aching Pain Consistency: constant Associated symptoms: denies other symptoms Related Data Home Medications Medication Instructions Recorded Confirmed esomeprazole magnesium 20 mg 20 mg PO DAILY PRN 11/12/20 01/20/21 capsule,delayed release (Nexium) aspirin 81 mg tablet,delayed 324 mg PO DAILY PRN tab 01/20/21 01/20/21 release (Adult Aspirin Regimen) Previous Rx's Medication Instructions Recorded albuterol sulfate 90 mcg/actuation 2 puff INHALATION Q4-6H PRN #8.5 g 11/03/20 aerosol inhaler (ProAir HFA) Allergies Allergy/AdvReac Type Severity Reaction Status Date / Time No Known Allergies Allergy Verified 02/21/21 00:10 Review of Systems Constitutional: Constitutional: Reports no additional constitutional complaints Eyes: Eyes: Reports no additional eye complaints ENT: Denies dizziness Cardiovascular: Cardiovascular: Reports no additional cardiovascular complaints Respiratory: Respiratory: Reports as per HPI Gastrointestinal: Gastrointestinal: Reports no additional gastrointestinal complaints Musculoskeletal: Musculoskeletal: Reports no additional musculoskeletal complaints Integumentary/Breasts: Skin/Breast: Denies rash Neurologic: Reports system reviewed and no additional complaints, except as documented, Denies dizziness and Denies Sensory deficit (Neuro) Psychiatric: Psychiatric: Denies anxiety [facility] Past Medical History Medical History Anxiety Autosomal dominant hereditary hemochromatosis Dizziness HTN (hypertension) Mild intermittent allergic 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 Mood disorder Paresthesia Thyroid nodule Surgical History Hx of wisdom tooth extraction Family History Family History Father CLL (chronic lymphocytic leukemia) Diabetes Paternal Grandfather Diabetes Maternal Grandmother H/O heart bypass surgery Mother Drug abuse Social History Social History Alcohol intake: never Patient Tobacco Use Status: Never used Tobacco Advance Directives: No Physical Exam Vital Signs: Vital Signs: Last Vital Signs Temp 98.9 F 02/21/21 00:02 Pulse 104 H 02/21/21 02:22 Resp 16 02/21/21 02:22 BP 144/92 H 02/21/21 02:22 Pulse Ox 100 02/21/21 02:22 BMI result Body Mass Index 29.5 Const: Other: anxious male Nutritional Appearance: average body habitus Orientation/consciousness: oriented to person and patient oriented x3 Limitations: no limitations HENMT: Head: Yes normal to inspection Ears: external ears normal General nose exam: Normal external nose present Mouth: Normal oral and palatal mucosa present and oropharynx normal Throat: Yes posterior oropharynx normal Eyes: General: appearance normal, both eyes and all related structures Neck: Other: supple Neck: Yes normal visual inspection Chest: Chest palpation & inspection: normal inspection of the chest Resp: Auscultation: clear to auscultation bilaterally Cardio: Jugular venous distension: no JVD Rate: regular rate Rhythm: regular rhythm Heart sounds: S1 normal heart sound present and S2 normal heart sound present GI: Inspection: Yes normal to inspection Palpation (GI): Soft to palpation, nontender and No hepatosplenomegaly present Auscultation: normal bowel sounds : General: Yes no CVA tenderness Back/Spine/Pelvis: Back: no CVA tenderness Skin: General skin exam: no rashes or lesions noted Neuro: General: oriented to person and patient oriented x3 Cranial nerves: Yes CN's II-XII intact bilaterally Motor exam (neuro): 5/5 motor strength present throughout Sensory Exam: No Sensory deficit (Neuro) Extrem: General: Yes normal to inspection Psych: Appearance: grossly normal Course Reevaluation(s) Reevaluation #1: patient seen multiple times with palpitations, he is adamant that there is something wrong, decided to check inflammatory markers and CPK, his EKG is completely normal Time: 01:50 Reevaluation #2: Inflammatory markers are negative will have patient follow up for anxiety Time: 02:26 Medical Decision Making Lab Data Labs: Lab Results 02/21/21 02/21/21 02/21/21 Range/Units 01:44 01:44 01:44 D-Dimer High Sensitivty 226 NG/ML Total Creatine Kinase 104 (38-174) U/L C-Reactive Protein 0.05 (< or = 0.50) mg/dL ECG Data Attestation: I personally reviewed and interpreted this ECG as follows: Interpretation: sinus rate of 87, no st or twave changes Discharge Plan Discharge Clinical Impression: Palpitations, Anxiety Patient Disposition: Home, Self-Care Instructions: Anxiety (ED), Panic Disorder (ED) Prescriptions: No Action esomeprazole magnesium [Nexium] 20 mg Capsule,Delayed Release(Dr/Ec) 20 mg PO DAILY PRN (Reason: Acid Reflux) RF: 0 albuterol sulfate [ProAir HFA] 90 mcg/actuation HFA aerosol inhaler 2 puff inhalation Q4-6H PRN (Reason: shortness of breath or wheezing) Qty: 8.5 RF: 0 aspirin [Adult Aspirin Regimen] 81 mg tablet,delayed release (DR/EC) 324 mg PO DAILY PRN (Reason: tachycardia) RF: 0 Referrals: Kaylie Cardona MD [Primary Care Provider] - 5 days
--- NOTE | 2021-02-21 01:18 | ECG_ITS ---
Test Reason : TACHYCARDIA Blood Pressure : / mmHG Vent. Rate : 087 BPM Atrial Rate : 087 BPM P-R Int : 144 ms QRS Dur : 078 ms QT Int : 354 ms P-R-T Axes : 047 060 041 degrees QTc Int : 425 ms Normal sinus rhythm Normal ECG When compared with ECG of 15-FEB-2021 01:23, No significant change was found Referred By: Kentrell Gomez Electronically Signed By:TERRY FRANK MD
[2021-02-21 02:00] LABS: D Dimer High Sensitivity 226 NG/ML
[2021-02-21 02:12] LABS: C Reactive Protein 0.05 mg/dL (< or = 0.50)
[2021-02-21 02:21] VITALS: BP 140/87; PULSE 89
[2021-02-21 02:22] VITALS: BP 144/92; BP 150/87; PULSE 104; PULSE 96; RESP 16; O2SAT 100
[2021-02-21 02:35] LABS: TSH reflex Free T4 2.04 uIU/mL (0.32-4.0)
[2021-02-21 02:48] LABS: Erythrocyte Sedimentation Rate 2 MM/HR (0-15)
== END 2021-02-21 02:56 | disposition home or self-care (01) ==
PROVIDERS: Emergency Provider Emergency Medicine; PCP Student in an Organized Health Care Education/Training Program
DX: R00.2 Palpitations (principal); F41.9 Anxiety disorder, unspecified; I10 Essential (primary) hypertension
CPT/HCPCS: 36415; 82550; 84443; 85379; 85652; 86140; 93005; 99283; 99284

== ENCOUNTER 2021-02-27 18:11 | Emergency (ER) | payer MEDICAID, SELFPAY ==
[2021-02-27 18:21] VITALS: BP 141/88; PULSE 86; RESP 16; TEMP 36.7; O2SAT 98; BMI 29.0
--- NOTE | 2021-02-27 18:36 | ECG_ITS ---
Test Reason : PALPITATION Blood Pressure : / mmHG Vent. Rate : 073 BPM Atrial Rate : 073 BPM P-R Int : 132 ms QRS Dur : 084 ms QT Int : 364 ms P-R-T Axes : 049 068 054 degrees QTc Int : 401 ms Normal sinus rhythm Normal ECG When compared with ECG of 21-FEB-2021 01:34, No significant change was found Referred By: Generic ED Physician Electronically Signed By:CRUZ GARCIA
--- NOTE | 2021-02-27 20:44 | PC.NURSE ---
PATIENT STATING I DON'T AGREE TO ANY OF THIS, NO LABS AND X-RAYS REFUSING TESTING. STATING ONLY WANTING TO EKG.
--- NOTE | 2021-02-27 21:29 | ED_ITS ---
HPI - Arrhythmia/Palpitations General Chief Complaint: Arrhythmia/Palpitations Stated Complaint: dizziness Time Seen by Provider: 02/27/21 18:15 Source: patient Mode of arrival: ambulatory Limitations: no limitations History of Present Illness HPI narrative: 35-year-old male presents via EMS for palpitations that he could feel in his left bicep. MD complaint: palpitations Onset (ago): unknown Duration: intermittent Severity: mild Context: occurred during rest Associated symptoms: anxiety Related Data Home Medications Medication Instructions Recorded Confirmed esomeprazole magnesium 20 mg 20 mg PO DAILY PRN 11/12/20 01/20/21 capsule,delayed release (Nexium) aspirin 81 mg tablet,delayed 324 mg PO DAILY PRN tab 01/20/21 01/20/21 release (Adult Aspirin Regimen) Previous Rx's Medication Instructions Recorded albuterol sulfate 90 mcg/actuation 2 puff INHALATION Q4-6H PRN #8.5 g 11/03/20 aerosol inhaler (ProAir HFA) Allergies Allergy/AdvReac Type Severity Reaction Status Date / Time No Known Allergies Allergy Verified 02/21/21 00:10 Review of Systems Review of Systems: Constitutional: No Weight loss, No Fever, No Chills, No Night Sweats, No Fatigue, No Malaise ENT/Mouth: No Hearing loss, No Ear Pain, No Nasal Congestion, No Sinus Pain, No Hoarseness, No sore throat, No Rhinorrhea, No Swallowing Difficulty Eyes: No Eye Pain, No Swelling, No Redness, No Foreign Body, No Discharge, No Vision Changes Cardiovascular: No Chest Pain, No SOB, No Dyspnea on Exertion, No Orthopnea, No Edema, positive Palpitations Respiratory: No Cough, No Sputum, No Wheezing, No Smoke Exposure, No Dyspnea Gastrointestinal: No Nausea, No Vomiting, No Diarrhea, No Constipation, No abdominal Pain, No Hematochezia, No Melena Genitourinary: no irregular bleeding, No Dysuria, No Urinary Frequency, No Hematuria, No Urinary Incontinence, No Urgency, No Flank Pain, No Urinary Flow Changes, No Hesitancy Musculoskeletal: No joint pain, No Myalgias, No Joint Swelling Skin: No Skin Lesions, No rash Neuro: No Weakness, No Numbness, No Paresthesias, No Loss of Consciousness, No Dizziness, No Headache Psych: No Anxiety/Panic, No Depression, No SI/HI/AH/VH, No Social Issues Heme/Lymph: No Bruising, No Bleeding,No Lymphadenopathy Endocrine: No Polyuria, No Polydipsia, No Temperature Intolerance Yes all other systems are reviewed and are negative [facility] Past Medical History Attestation statement: The following information was validated with the patient. Source: old records reviewed Medical History Anxiety Autosomal dominant hereditary hemochromatosis Dizziness HTN (hypertension) Mild intermittent allergic 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 Mood disorder Paresthesia Thyroid nodule Surgical History Hx of wisdom tooth extraction Family History Family History Father CLL (chronic lymphocytic leukemia) Diabetes Paternal Grandfather Diabetes Maternal Grandmother H/O heart bypass surgery Mother Drug abuse Social History Social History Alcohol intake: never Patient Tobacco Use Status: Never used Tobacco Advance Directives: No Advance Directives Information Provided: Yes Physical Exam Vital Signs: Vital Signs: Last Vital Signs Temp 98.0 F 02/27/21 18:21 Pulse 86 02/27/21 18:21 Resp 16 02/27/21 18:21 BP 141/88 H 02/27/21 18:21 Pulse Ox 98 02/27/21 18:21 BMI result Body Mass Index 29.0 Appearance: Alert. Oriented X3. No acute distress. Eyes: Pupils equal, round and reactive to light. ENT: Pharynx normal. Neck: Normal inspection. Neck supple. CVS: Normal heart rate and rhythm. Pulses equal bilaterally. Brisk capillary refill. Respiratory: No respiratory distress. Breath sounds normal. Abdomen: Soft and nontender. Skin: Skin warm and dry. Normal skin color. Normal skin turgor. Extremities: No lower extremity edema. Gait well-balanced well coordinated. Neuro: No motor deficit. No sensory deficit. Cranial nerves 2-12 intact. Course Course Course Narrative: 35-year-old male presents via EMS for palpitations that he could feel in his biceps and left chest wall accompanied with dizziness. Patient is requesting CT angio of his body. States that there is something wro ng but nobody will do the testing that he is requesting. I did discuss in detail with him that palpating pulses in the extremities is normal. Patient is insistent that there is something wrong. A review of his prior imaging and visits show multiple visits with Cardiology, Neurology, Gastroenterology, and emergency for similar circumstances. Patient also reports having MRIs, EEGs, EKG, x-rays, Dopplers, and CT scans that have all presented negative. He does not have a family history of sudden cardiac , no family history of aneurysms. Patient was advised to follow-up with primary care if he wanted CT angio. Patient stated that primary care denied CT angio because of a negative D-dimer. Patient is refusing labs at this time, stated that he had labs drawn last week. Kindly informed him that we would not be doing any imaging today. Patient disappointed with my findings as he does have equal pulses, brisk capillary refill, full range of motion to all extremities, is afebrile, vital signs are stable and within normal limits. Does have a slightly elevated blood pressure however is a significant history of anxiety. EKG is normal sinus rhythm. Heart score 0. Wells PE scored 0. Plan of care is to discharge home. MDM - Arrhythmia/Palpitations Differential Diagnosis Differential diagnosis: Likely palpitations and anxiety Medical Records Attestation: I reviewed the patient's medical records. ECG Data Attestation: I personally reviewed and interpreted this ECG as follows: ECG interpretation date: 02/27/21 ECG interpretation time: 18:36 Prior ECG tracings: available for review Interpretation: Vent. Rate : 073 BPM ? ? Atrial Rate : 073 BPM ?? P-R Int : 132 ms? QRS Dur : 084 ms ? ? QT Int : 364 ms ? ? ? P-R-T Axes : 049 068 054 degrees ?? QTc Int : 401 ms ? Normal sinus rhythm Normal ECG When compared with ECG of 21-FEB-2021 01:34, No significant change was found ? Scores Heart Score History: -0- slightly suspicious ECG: -0- normal Age: -0- < or = 45 Risk factory: -0- no risk factors known Troponin: -0- < or = normal limit Score: 0 Risk: 1.7% Discharge Plan Discharge Clinical Impression: Palpitations Patient Disposition: Home, Self-Care Instructions: Heart Palpitations (ED) Additional Instructions: You were evaluated in the emergency department because he felt pulses in her biceps radiating up to your neck. Physical exam was normal. He respectfully declined lab values. Please follow-up with Neurology. Please follow-up with vascular. Thank you for choosing this emergency department for evaluation. Please follow-up with primary care physician as needed. Return to the emergency department for any new, concerning, or worsening symptoms. Prescriptions: No Action esomeprazole magnesium [Nexium] 20 mg Capsule,Delayed Release(Dr/Ec) 20 mg PO DAILY PRN (Reason: Acid Reflux) RF: 0 albuterol sulfate [ProAir HFA] 90 mcg/actuation HFA aerosol inhaler 2 puff inhalation Q4-6H PRN (Reason: shortness of breath or wheezing) Qty: 8.5 RF: 0 aspirin [Adult Aspirin Regimen] 81 mg tablet,delayed release (DR/EC) 324 mg PO DAILY PRN (Reason: tachycardia) RF: 0 Referrals: Bozena Cyr MD [Physician] - 2 days (Headaches) Meir Johnson MD [Physician] - 2 days Interventions: ED Discharge Assessment Last Done: 02/27/21 22:04 Discharge Date/Time: 02/27/21 22:06
--- NOTE | 2021-02-27 21:35 | PC.NURSE ---
Pt refusing IV and bloodwork, pt just recently seen @ [facility]. Pt requesting imaging of left arm. aware.
--- NOTE | 2021-02-27 22:03 | PC.NURSE ---
A[employer] MAKER at bedside discussing plan for referrals. Pt requesting CT, [employer]ER declining at this time. Pt refusing VS. Pt provided with DC paperwork.
== END 2021-02-27 22:06 | disposition home or self-care (01) ==
PROVIDERS: Emergency Provider Emergency Medicine
DX: R00.2 Palpitations (principal); F41.9 Anxiety disorder, unspecified; I10 Essential (primary) hypertension
CPT/HCPCS: 93005; 99283

== ENCOUNTER 2021-03-10 15:18 | Outpatient (REF) | payer MEDICAID, SELFPAY ==
[2021-03-10 16:30] LABS: Anion Gap 11 (12-20); Blood Urea Nitrogen 14 mg/dL (9-16); Calcium 10.4 mg/dL (8.4-10.2); Carbon Dioxide 28 mmol/L (22-29); Chloride 104 mmol/L (96-108); Estimated Glomerular Filt Rate > 60; Glucose Random 131 mg/dL (60-115); Potassium 4.2 mmol/L (3.3-5.1); Sodium 139 mmol/L (135-145)
[2021-03-10 16:51] LABS: Thyroid Stimulating Hormone 1.46 uIU/mL (0.32-4.0)
[2021-03-10 17:01] LABS: Erythrocyte Sedimentation Rate 2 MM/HR (0-15)
[2021-03-11 09:02] LABS: Lyme Abs Screen <0.90 index
[2021-03-11 12:32] LABS: Anti Nuclear Antibody Screen NEGATIVE (NEGATIVE)
== END 2021-03-10 15:19 | disposition home or self-care (01) ==
LOC: HO.LAB 15:18
PROVIDERS: PCP Student in an Organized Health Care Education/Training Program; Visit Provider Psychiatry & Neurology Neurology
DX: G35 Multiple sclerosis (principal)
CPT/HCPCS: 36415; 80048; 82550; 84443; 85652; 86038; 86039; 86617; 86618

== ENCOUNTER → 2021-03-12 14:44 | Outpatient (REF) | payer MEDICAID, SELFPAY ==
--- NOTE | 2021-03-12 14:51 | CA_ITS ---
Transthoracic Echocardiogram Patient (Last, First, Middle): Arben Emanuel, Gender: Male Date of : 1985 Age: 35 Procedure Date: 03/12/2021 Procedure Type: Transthoracic Echocardiogram Location: OP Height: 180.34 cm Weight: 93.44 kg BSA: 2.14 m2 Heart Rate: bpm BP: 130 / 85 mmHg Supervisor [employer] Recruiters: PRAMOD Referring MD: Cuca Jones SHROUDMAN-C Project Management Advisor: Shon Manning MD Symptoms: R07.89 - Other chest pain Study Quality: Fair ECG Rhythm: Sinus Conclusions: - Normal LV systolic function Findings Left Ventricle The visually estimated ejection fraction is between 60-65%. There is no evidence of regional wall motion abnormalities. Spectral Doppler is indicative of a normal filling pattern. Pericardium/Pleural There is no evidence of pericardial effusion. Prior Study Comparison No significant change compared to prior study dated: 03/14/2019. Measurements 2D Linear Measurements IVSd: 1.06 0.6-0.9/0.6-1.0 cm LVIDd: 4.35 3.9-5.3/4.2-5.9 cm LVIDd Index: 2.03 2.4-3.2/2.2-3.1 cm/m2 LVIDs: 2.65 2.0-3.6 cm LVPWd: 1.06 0.7-1.1 cm LV Mass: 196.07 67-162/88-224 g LV Mass Index: 91.62 43-95/49-115 g/m2 2D Systolic Function EF 4C: 64.20 >55% EF 2C: 64.80 >55% EF BiP: 63.80 >55% Mitral Valve MV Pk E: 0.98 MV PK A: 0.53 MV Decel Time: 201.00 E/A: 1.90 E'Lateral: 18.60 E'Medial: 10.60 E/E' Med: 9.20 E/E' Lat: 5.30 PHT: 59.00 MVA PHT: 3.73 Decel Haakon: 4.87 Diastolic Function MV Pk E: 0.98 MV Pk A: 0.53 E/A: 1.90 E'Medial: 10.60 E/E' Med: 9.20 E' Laterial: 18.60 E/E' Lat: 5.30 Updated in Other Vendor System with Status of Final Shon Manning MD electronically signed on 03/12/2021 4:03:14 PM with status of Final
== END ==
LOC: HO.CARD 14:44
PROVIDERS: Visit Provider Nurse Practitioner Family
DX: R07.89 Other chest pain (principal); R00.2 Palpitations; E83.110 Hereditary hemochromatosis
CPT/HCPCS: 93308

== ENCOUNTER 2021-03-18 11:22 | Outpatient (REF) | payer MEDICAID, SELFPAY ==
--- NOTE | ~2021-03-18 | MR_ITS ---
EXAMINATION: MRI OF THE BRAIN WITHOUT CONTRAST CLINICAL INFORMATION: Multiple sclerosis. COMPARISON: CT scan of the head 03/25/2019.. TECHNIQUE: MRI of the brain was obtained using routine sequences without contrast. FINDINGS: No diffusion abnormalities are identified to suggest an acute or subacute infarct. No mass effect or midline shift is seen. The ventricles are normal in size. Brain parenchymal signal is unremarkable. No extra-axial fluid collections are seen. The brainstem and cerebellum are normal. No pathologic magnetic susceptibility artifact is identified on the gradient refocused acquisition. The craniovertebral junction, marrow signal, and midline structures are normal. The major intracranial flow-voids at the level of the [place] are preserved. The dural venous sinus flow-voids are maintained. There is trace fluid at the right mastoid tip. There is a retention cyst in the left maxillary sinus. MR/MR head/brain wo con IMPRESSION: 1. There are no acute bleeds or infarcts. No masses are demonstrated.
== END 2021-03-18 11:23 | disposition home or self-care (01) ==
LOC: HO.MRI 11:22
PROVIDERS: PCP Student in an Organized Health Care Education/Training Program; Visit Provider Psychiatry & Neurology Neurology
DX: G35 Multiple sclerosis (principal)
CPT/HCPCS: 70551

== ENCOUNTER 2021-03-26 12:43 | Outpatient (REF) | payer MEDICAID, SELFPAY ==
--- NOTE | ~2021-03-26 | US_ITS ---
EXAMINATION: US ABDOMEN COMPLETE CLINICAL INFORMATION: Elevated LFTs. COMPARISON: CT abdomen and pelvis 08/05/2020. X-ray KUB 08/05/2020 and 05/04/2020. Ultrasound abdomen complete 02/23/2018. TECHNIQUE: Real-time imaging of the abdominal viscera. FINDINGS: PANCREAS: The pancreas is not well delineated. No free fluid in the region. ABDOMINAL AORTA: The proximal, mid, and distal segments are normal in caliber. INFERIOR VENA CAVA: Visualized portions are normal. LIVER: Normal. The liver is normal in size. The liver contour is normal. Parenchymal echogenicity is normal. No focal hepatic lesion. There is no intrahepatic biliary duct dilatation seen. GALLBLADDER: Normal. The gallbladder is physiologically distended without evidence of stones, sludge, polyps, wall thickening or pericholecystic fluid. COMMON BILE DUCT: Normal in caliber measuring 0.21 cm in diameter. RIGHT KIDNEY: Midpole cyst. 2.4 x 2.3 x 3.4 cm. Possible minimal septation but no obvious solid component. No hydronephrosis or renal calculi. The kidney measures 11.1 cm in maximum dimension. LEFT KIDNEY: Normal. No hydronephrosis. No renal calculi or focal parenchymal lesions. The kidney measures 11.0 cm in maximum dimension. SPLEEN: Normal. The spleen measures 12.3 cm in maximum dimension. FREE FLUID: None. US/US abdomen complete IMPRESSION: No acute finding. No evidence of cholelithiasis or cholecystitis. There is no free fluid.
== END 2021-03-26 12:44 | disposition home or self-care (01) ==
LOC: HO.HMGCX 12:43
PROVIDERS: Visit Provider Student in an Organized Health Care Education/Training Program
DX: R74.8 Abnormal levels of other serum enzymes (principal)
CPT/HCPCS: 76700

== ENCOUNTER 2021-04-05 23:34 | Emergency (ER) | payer MEDICAID, SELFPAY ==
[2021-04-05 23:42] VITALS: BP 171/95; PULSE 100; RESP 18; TEMP 37.2; O2SAT 97; BMI 28.8
--- NOTE | 2021-04-06 00:23 | ED_ITS ---
HPI - General Adult General Chief complaint: General Medical Stated complaint: Elevated BP Time Seen by Provider: 04/06/21 00:23 Source: patient Mode of arrival: ambulatory Limitations: no limitations History of Present Illness HPI narrative: Patient history of hemochromatosis chronic neck pain had intercourse today and noticed pain in the neck area which is chronic patient very anxious checked his blood pressure was elevated 160/105 on arrival blood pressure was 171/95 repeat blood pressure was 140/90 patient is very anxious asking for copper level to be tested Related Data Home Medications Medication Instructions Recorded Confirmed esomeprazole magnesium 20 mg 20 mg PO DAILY PRN 11/12/20 01/20/21 capsule,delayed release (Nexium) aspirin 81 mg tablet,delayed 324 mg PO DAILY PRN tab 01/20/21 01/20/21 release (Adult Aspirin Regimen) Previous Rx's Medication Instructions Recorded albuterol sulfate 90 mcg/actuation 2 puff INHALATION Q4-6H PRN #8.5 11/03/20 g aerosol inhaler (ProAir HFA) Allergies Allergy/AdvReac Type Severity Reaction Status Date / Time No Known Allergies Allergy Verified 04/05/21 23:42 Review of Systems Verdana 4l Review of Systems: Yes all other systems are reviewed and Verdana 4d are negative PMFSH Past Medical History Medical History Anxiety Autosomal dominant hereditary hemochromatosis Dizziness HTN (hypertension) Mild intermittent allergic 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 Mood disorder Paresthesia Thyroid nodule Surgical History Hx of wisdom tooth extraction Family History Family History Father CLL (chronic lymphocytic leukemia) Diabetes Paternal Grandfather Diabetes Maternal Grandmother H/O heart bypass surgery Mother Drug abuse Social History Social History Alcohol intake: never Patient Tobacco Use Status: Never used Tobacco Use of substances other than those prescribed or required for medical reasons: No Advance Directives: No Advance Directives Information Provided: Yes Physical Exam Verdana 4l Vital Signs: Verdana 4d Verdana 4d Vital Signs: Verdana 4d Verdana 4Bd Last Vital Signs Verdana 4d [employer] Specialist New 4d Affiliate Marketing Specialist New 4d Temp 98.2 F 04/06/21 01:07 Affiliate Marketing Specialist New 4d Pulse 83 04/06/21 01:07 Affiliate Marketing Specialist New 4d Resp 12 04/06/21 01:07 BP 140/95 H 04/06/21 01:07 Pulse Ox 95 04/06/21 01:07 BMI result Body Mass Index 28.8 Appearance: Alert. Oriented X3. No acute distress. ENT: Pharynx normal. Oral Mucosa moist Neck: Normal inspection. Neck supple. Diffuse tenderness in cervical area no focal midline spinal tenderness no carotid bruits CVS: Normal heart rate and rhythm. Pulses normal. Respiratory: No respiratory distress. Equal air entry bilateral, no wheezing/rales/rhonchi Abdomen: Soft and nontender. Bowel sounds are present, no mass palpable, no CVA tenderness Skin: Skin warm and dry. Normal skin color. Normal skin turgor. Extremities: No lower extremity edema. No calf tenderness Neuro: Oriented X 3. No motor deficit. No sensory deficit.No cerebellar signs , cranial nerves II-XII intact Medical Decision Making MDM Narrative Medical decision making narrative: Patient with anxiety with transient elevated blood pressure lab workup is negative patient advised to follow with PCP Lab Data Lab results reviewed: Yes I reviewed the patient's lab results. Result diagrams: 04/06/21 01:01 04/06/21 01:01 Labs: Lab Results 04/06/21 04/06/21 04/06/21 Range/Units 01:01 01:01 01:01 WBC 8.0 (4.8-10.8) X10*3/uL RBC 5.40 (4.60-5.80) X10*6/uL Hgb 17.6 (14.0-18.0) g/dl Hct 49.3 (42.0-52.0) % MCV 91.3 (80.0-98.0) fL MCH 32.6 (27.0-33.0) pg MCHC 35.7 (31.0-36.0) g/dl RDW 11.4 (11.0-16.0) % Plt Count 279 (160-400) X10*3/uL MPV 9.7 (9.4-12.4) fL Immature Gran % (Auto) 0.3 (0.0-0.4) % Neut % (Auto) 69.0 (45-73) % Lymph % (Auto) 21.2 (20-40) % Granite % (Auto) 7.8 (2-11) % Eos % (Auto) 1.1 (0-4) % Baso % (Auto) 0.6 (0-2) % Lymph # (Auto) 1.7 (1.2-4.9) X10*3/uL Granite # (Auto) 0.6 (0.1-1.2) X10*3/uL Eos # (Auto) 0.1 (0.0-0.4) X10*3/uL Baso # (Auto) 0.1 (0.0-0.2) X10*3/uL Abs Immat Gran (auto) 0.02 (0.00-0.03) X10*3/uL Absolute Neuts (auto) 5.5 (2.0-8.3) x10*3/uL Absolute Nucleated RBC 0.000 (0.0-0.012) X10*3/uL Nucleated RBC % (auto) 0.0 (0.0-0.2) /100WBC Sodium 141 (135-145) mmol/L Potassium 4.5 (3.3-5.1) mmol/L Chloride 104 (96-108) mmol/L Carbon Dioxide 29 (22-29) mmol/L Anion Gap 13 (12-20) BUN 16 (9-16) mg/dL Creatinine 1.13 (0.5-1.4) mg/dL Estim Creat Clear Calc 106.7 Estimated GFR > 60 Random Glucose 96 (60-115) mg/dL Calcium 10.1 (8.4-10.2) mg/dL Troponin I High Sens < 3.5 (<3.5-35.0) ng/L ECG Data Attestation: I personally reviewed and interpreted this ECG as follows: Interpretation: Normal sinus rhythm heart rate 85 beats per minute normal intervals normal axis no acute ST-T changes no acute ischemia Scores Heart Score History: -0- slightly suspicious ECG: -0- normal Age: -0- < or = 45 Risk factory: -0- no risk factors known Troponin: -0- < or = normal limit Score: 0 Risk: 1.7% Discharge Plan Discharge Clinical Impression: Chest discomfort, Blood pressure elevated without history of HTN Patient Disposition: Home, Self-Care Instructions: Chest Pain (ED), Hypertension (ED) Additional Instructions: Follow with primary care doctor for further evaluation Prescriptions: No Action esomeprazole magnesium [Nexium] 20 mg Capsule,Delayed Release(Dr/Ec) 20 mg PO DAILY PRN (Reason: Acid Reflux) 0RF albuterol sulfate [ProAir HFA] 90 mcg/actuation HFA aerosol inhaler 2 puff inhalation Q4-6H PRN (Reason: shortness of breath or wheezing) Qty: 8.5 0RF aspirin [Adult Aspirin Regimen] 81 mg tablet,delayed release (DR/EC) 324 mg PO DAILY PRN (Reason: tachycardia) 0RF
--- NOTE | 2021-04-06 00:32 | ECG_ITS ---
Test Reason : CP Blood Pressure : / mmHG Vent. Rate : 085 BPM Atrial Rate : 085 BPM P-R Int : 142 ms QRS Dur : 078 ms QT Int : 356 ms P-R-T Axes : 043 046 024 degrees QTc Int : 423 ms Normal sinus rhythm Normal ECG When compared with ECG of 27-FEB-2021 18:38, No significant change was found Referred By: Sam Schneider Electronically Signed By:CRUZ GARCIA
[2021-04-06] MEDS: oxyCODONE HCl Immed Release 5 MG TABLET 10 MG PO (00:56)
[2021-04-06 01:05] LABS: MANUAL DIFF FLAG NO
[2021-04-06 01:06] LABS: Basophils Absolute Auto 0.1 X10*3/uL (0.0-0.2); Basophils Percent Auto 0.6 % (0-2); Eosinophils Absolute Auto 0.1 X10*3/uL (0.0-0.4); Eosinophils Percent Auto 1.1 % (0-4); Hematocrit 49.3 % (42.0-52.0); Hemoglobin 17.6 g/dl (14.0-18.0); Imm Gran Abs Auto 0.02 X10*3/uL (0.00-0.03); Imm Gran Pct Auto 0.3 % (0.0-0.4); Lymphocytes Absolute Auto 1.7 X10*3/uL (1.2-4.9); Lymphocytes Percent Auto 21.2 % (20-40); Mean Corpuscular HGB Conc 35.7 g/dl (31.0-36.0); Mean Corpuscular Hemoglobin 32.6 pg (27.0-33.0); Mean Corpuscular Volume 91.3 fL (80.0-98.0); Mean Platelet Volume 9.7 fL (9.4-12.4); Monocytes Absolute Auto 0.6 X10*3/uL (0.1-1.2); Monocytes Percent Auto 7.8 % (2-11); Neutrophils Absolute Auto 5.5 x10*3/uL (2.0-8.3); Platelet Count 279 X10*3/uL (160-400); Red Cell Distribution Width 11.4 % (11.0-16.0)
[2021-04-06 01:07] VITALS: BP 140/95; PULSE 83; RESP 12; TEMP 36.8; O2SAT 95
[2021-04-06 01:24] LABS: Anion Gap 13 (12-20); Blood Urea Nitrogen 16 mg/dL (9-16); Calcium 10.1 mg/dL (8.4-10.2); Carbon Dioxide 29 mmol/L (22-29); Chloride 104 mmol/L (96-108); Creatinine Clr Calc Pharmacy 106.7; Estimated Glomerular Filt Rate > 60; Glucose Random 96 mg/dL (60-115); Potassium 4.5 mmol/L (3.3-5.1); Sodium 141 mmol/L (135-145)
[2021-04-06 01:29] LABS: Troponin-I High Sensitivity < 3.5 ng/L (<3.5-35.0)
== END 2021-04-06 01:53 | disposition home or self-care (01) ==
PROVIDERS: Emergency Provider Internal Medicine
DX: R07.9 Chest pain, unspecified (principal); R03.0 Elevated blood-pressure reading, without diagnosis of hypertension; M54.2 Cervicalgia
CPT/HCPCS: 36415; 80048; 84484; 85025; 93005; 99283; 99284

== ENCOUNTER 2021-04-10 14:49 | Outpatient (REF) | payer MEDICAID, SELFPAY | END 2021-04-10 14:50 | disposition home or self-care (01) | LOC: HO.BBR 14:49 | PROVIDERS: PCP Student in an Organized Health Care Education/Training Program; Visit Provider Internal Medicine | DX: Z13.89 Encounter for screening for other disorder (principal) ==

== ENCOUNTER 2021-04-23 13:12 | Emergency (ER) | payer MEDICAID, SELFPAY ==
--- NOTE | ~2021-04-23 | XR_ITS ---
EXAMINATION: XR FOOT, RIGHT CLINICAL INFORMATION: Dropping weight on right foot COMPARISON: None TECHNIQUE: AP, lateral, and oblique views of the right foot. FINDINGS: There is no evidence of acute fracture or dislocation of the right foot. There is mild soft tissue swelling seen dorsally. Joint spaces are maintained. No erosive changes identified. XR/XR foot RT 2V IMPRESSION: No significant bony abnormality of the right foot.
[2021-04-23 13:35] VITALS: BP 134/95; PULSE 100; RESP 19; TEMP 36.6; O2SAT 100; BMI 30.1
[2021-04-23 13:57] LABS: Strep A Nucleic Acid Negative (Negative)
[2021-04-23 14:03] LABS: COVID-19 Test Negative (Negative)
--- NOTE | 2021-04-23 15:14 | ED_ITS ---
HPI - General Adult General Chief complaint: General Medical Stated complaint: foot injury, sore throat Time Seen by Provider: 04/23/21 14:58 Source: patient Mode of arrival: ambulatory Limitations: no limitations History of Present Illness HPI narrative: Patient comes emergency room complaining of right foot pain. Patient states he dropped a 25 lb dumbbell on his foot a day ago. Patient is able to bear weight. He dropped a weight on the proximal aspect of the foot. Patient also complaining of sore throat. Patient denies fever or chills Related Data Home Medications Medication Instructions Recorded Confirmed esomeprazole magnesium 20 mg 20 mg PO DAILY PRN 11/12/20 01/20/21 capsule,delayed release (Nexium) aspirin 81 mg tablet,delayed 324 mg PO DAILY PRN tab 01/20/21 01/20/21 release (Adult Aspirin Regimen) Previous Rx's Medication Instructions Recorded albuterol sulfate 90 mcg/actuation 2 puff INHALATION Q4-6H PRN #8.5 g 11/03/20 aerosol inhaler (ProAir HFA) Allergies Allergy/AdvReac Type Severity Reaction Status Date / Time No Known Allergies Allergy Verified 04/05/21 23:42 Review of Systems Review of Systems: Constitutional : No Weight loss, No Fever, No Chills, No Night Sweats, No Fatigue, No Malaise ENT/Mouth : No Hearing loss, No Ear Pain, No Nasal Congestion, No Sinus Pain, No Hoarseness, complaining of mild sore throat, No Rhinorrhea, No Swallowing Difficulty Eyes: No Eye Pain, No Swelling, No Redness, No Foreign Body, No Discharge, No Vision Changes Cardiovascular : No Chest Pain, No SOB, No Dyspnea on Exertion, No Orthopnea, No Edema, No Palpitations Respiratory : No Cough, No Sputum, No Wheezing, No Smoke Exposure, No Dyspnea Gastrointestinal : No Nausea, No Vomiting, No Diarrhea, No Constipation, No abdominal Pain, No Hematochezia, No Melena Genitourinary : no irregular bleeding, No Dysuria, No Urinary Frequency, No Hematuria, No Urinary Incontinence, No Urgency, No Flank Pain, No Urinary Flow Changes, No Hesitancy Musculoskeletal : Complaining of right foot pain, No Myalgias, No Joint Swelling Skin : No Skin Lesions, No rash Neuro : No Weakness, No Numbness, No Paresthesias, No Loss of Consciousness, No Dizziness, No Headache Psych : No Anxiety/Panic, No Depression, No SI/HI/AH/VH, No Social Issues, Heme/Lymph: No Bruising, No Bleeding,No Lymphadenopathy Endocrine : No Polyuria, No Polydipsia, No Temperature Intolerance [facility] Past Medical History Medical History Anxiety Autosomal dominant hereditary hemochromatosis Dizziness HTN (hypertension) Mild intermittent allergic 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 Mood disorder Paresthesia Thyroid nodule Surgical History Hx of wisdom tooth extraction Family History Family History Father CLL (chronic lymphocytic leukemia) Diabetes Paternal Grandfather Diabetes Maternal Grandmother H/O heart bypass surgery Mother Drug abuse Social History Social History Alcohol intake: never Patient Tobacco Use Status: Never used Tobacco Advance Directives: No Advance Directives Information Provided: No Physical Exam ED Vital Signs: Vital Signs - 24 hr 04/23/21 13:35 Temperature 98 F Pulse Rate 100 Respiratory Rate 19 Blood Pressure 134/95 H Pulse Oximetry 100 BMI result Body Mass Index 30.1 Const Other: Appearance: Alert. Oriented X3. No acute distress. Eyes: Pupils equal, round and reactive to light. ENT: Pharynx normal. No exudates, no abscesses Neck: Normal inspection. Neck supple. No lymph nodes noted. No crepitus CVS: Normal heart rate and rhythm. Pulses normal. Normal S1 and S2 Respiratory: No respiratory distress. Breath sounds normal. No Wheezing. No rales Abdomen: Soft and nontender. No rigidity. No distention. good BS x4 Skin: Skin warm and dry. Normal skin color. Normal skin turgor. Extremities: No lower extremity edema. No redness, no obvious deformity, mild pain to palpation over the dorsum of the right foot Neuro: Oriented X 3. No motor deficit. No sensory deficit. Moving all extermities. No slurred speech. Course Course Course Narrative: Patient tested negative for COVID-19 and for strep Chest x-ray negative for fractures. Pain secondary to contusion Patient was given 1 dose of ibuprofen. Patient states he has tablets of 600 mg at home, does not need a prescription. Patient was offered crutches, states that he can bear weight and will not require crutches Medical Decision Making Lab Data Labs: Lab Results 04/23/21 04/23/21 Range/Units 13:43 13:43 COVID-19 (ELENA) Negative (Negative) COVID-19 Clin Com See Note S. pyogenes GrpA EARLENE Negative (Negative) Imaging Data Foot x-ray: Radiologist's impression: FINDINGS: There is no evidence of acute fracture or dislocation of the right foot. There is mild soft tissue swelling seen dorsally. Joint spaces are maintained. No erosive changes identified. XR/XR foot RT 2V IMPRESSION: No significant bony abnormality of the right foot. Discharge Plan Discharge Clinical Impression: Contusion of foot, Sore throat Patient Disposition: Home, Self-Care Instructions: Foot Contusion (ED) Additional Instructions: Please follow-up with your primary care physician tomorrow. If you have any worsening or new symptoms, please return to the emergency room or call 911 Prescriptions: No Action esomeprazole magnesium [Nexium] 20 mg Capsule,Delayed Release(Dr/Ec) 20 mg PO DAILY PRN (Reason: Acid Reflux) 0RF albuterol sulfate [ProAir HFA] 90 mcg/actuation HFA aerosol inhaler 2 puff inhalation Q4-6H PRN (Reason: shortness of breath or wheezing) Qty: 8.5 0RF aspirin [Adult Aspirin Regimen] 81 mg tablet,delayed release (DR/EC) 324 mg PO DAILY PRN (Reason: tachycardia) 0RF
[2021-04-23] MEDS: Ibuprofen 600 MG TABLET PO (15:28)
== END 2021-04-23 15:37 | disposition home or self-care (01) ==
PROVIDERS: Emergency Provider Emergency Medicine; PCP Student in an Organized Health Care Education/Training Program
DX: S90.31XA Contusion of right foot, initial encounter (principal); J02.9 Acute pharyngitis, unspecified; I10 Essential (primary) hypertension; Y29.XXXA Contact with blunt object, undetermined intent, initial encounter; Y93.9 Activity, unspecified; Y92.9 Unspecified place or not applicable; Y99.9 Unspecified external cause status; Z20.822 Contact with and (suspected) exposure to COVID-19; Z79.899 Other long term (current) drug therapy
CPT/HCPCS: 73620; 87635; 87651; 99283; 99284

== ENCOUNTER 2021-05-12 09:56 | Outpatient (REF) | payer MEDICAID, SELFPAY | END 2021-05-12 09:57 | disposition home or self-care (01) | LOC: HO.BBR 09:56 | PROVIDERS: Visit Provider Internal Medicine | DX: Z13.89 Encounter for screening for other disorder (principal) ==

== ENCOUNTER 2021-05-13 15:56 | Outpatient (REF) | payer MEDICAID, SELFPAY | END 2021-05-13 15:57 | disposition home or self-care (01) | LOC: HO.MRI 15:56 | PROVIDERS: Visit Provider Emergency Medicine | DX: Z13.89 Encounter for screening for other disorder (principal) ==

== ENCOUNTER 2021-05-16 19:42 | Emergency (ER) | payer MEDICAID, SELFPAY ==
[2021-05-16 20:39] VITALS: BP 119/83; PULSE 73; RESP 16; TEMP 37; O2SAT 98; BMI 29.0
--- NOTE | 2021-05-16 21:52 | ED.GENADULT ---
HPI - General Adult General Chief complaint: General Medical Stated complaint: Hypertension Time Seen by Provider: 05/16/21 21:41 History of Present Illness HPI narrative: Patient presents today with multitude of nonspecific complaints including some tingling in the hands generalized malaise yesterday his toes were warm blue in color. Patient complained that his blood pressure was elevated earlier today after walk. Patient denies any coughing congestion upper respiratory symptoms no diaphoresis. He is 35 years old with a history of hemochromatosis patient from home. No fever no chills. took her blood pressure after walk was noted to be high. Patient claimed was approximately 150/80. Related Data Home Medications Medication Instructions Recorded Confirmed esomeprazole magnesium 20 mg 20 mg PO DAILY PRN 11/12/20 01/20/21 capsule,delayed release (Nexium) aspirin 81 mg tablet,delayed 324 mg PO DAILY PRN tab 01/20/21 01/20/21 release (Adult Aspirin Regimen) Previous Rx's Medication Instructions Recorded albuterol sulfate 90 mcg/actuation 2 puff INHALATION Q4-6H PRN #8.5 g 11/03/20 aerosol inhaler (ProAir HFA) Allergies Allergy/AdvReac Type Severity Reaction Status Date / Time No Known Allergies Allergy Verified 04/05/21 23:42 Review of Systems Review of Systems: No fever no chills positive shooting pain tingling sensation diffusely positive elevated blood pressure no chest pain or focal weakness Yes all other systems are reviewed and are negative [facility] Past Medical History Medical History (Updated 05/16/21 @ 21:54 by Lexie Mckeon MD) Anxiety Autosomal dominant hereditary hemochromatosis Dizziness HTN (hypertension) Mild intermittent allergic 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 Mood disorder Paresthesia Thyroid nodule Surgical History (Updated 05/11/21 @ 15:06 by Clare Ellsworth [facility]) Hx of wisdom tooth extraction S/P fine needle aspiration Family History Family History Father CLL (chronic lymphocytic leukemia) Diabetes Paternal Grandfather Diabetes Maternal Grandmother H/O heart bypass surgery Mother Drug abuse Social History Social History Alcohol intake: never Patient Tobacco Use Status: Never used Tobacco Advance Directives: No Advance Directives Information Provided: Yes Physical Exam ED Vital Signs: Vital Signs - 24 hr 05/16/21 20:39 Temperature 98.6 F Pulse Rate 73 Respiratory Rate 16 Blood Pressure 119/83 Pulse Oximetry 98 BMI result Body Mass Index 29.0 Appearance: Alert. Oriented X3. No acute distress. Eyes: Pupils equal, round and reactive to light. ENT: Pharynx normal. Neck: Normal inspection. Neck supple. No lymph nodes noted. No crepitus CVS: Normal heart rate and rhythm. Pulses normal. Normal S1 and S2 Respiratory: No respiratory distress. Breath sounds normal. No Wheezing. No rales Abdomen: Soft and nontender. No rigidity. No distention. good BS x4 Skin: Skin warm and dry. Normal skin color. Normal skin turgor. Extremities: No lower extremity edema. Neurovascular intact to all extremities. No Lacerations. No Rash Neuro: Oriented X 3. No motor deficit. No sensory deficit. Moving all extermities. No slurred speech Medical Decision Making MDM Narrative Medical decision making narrative: patient's blood pressure was normal in the emergency department neurologically intact. Will have patient follow-up on an outpatient basis. Discharge Plan Discharge Clinical Impression: Anxiety, Hypertension Patient Disposition: Home, Self-Care Instructions: Hypertension (ED), Anxiety (ED) Prescriptions: No Action esomeprazole magnesium [Nexium] 20 mg Capsule,Delayed Release(Dr/Ec) 20 mg PO DAILY PRN (Reason: Acid Reflux) 0RF albuterol sulfate [ProAir HFA] 90 mcg/actuation HFA aerosol inhaler 2 puff inhalation Q4-6H PRN (Reason: shortness of breath or wheezing) Qty: 8.5 0RF aspirin [Adult Aspirin Regimen] 81 mg tablet,delayed release (DR/EC) 324 mg PO DAILY PRN (Reason: tachycardia) 0RF Referrals: [facility] [Primary Care Provider] - 2 days
== END 2021-05-16 22:04 | disposition home or self-care (01) ==
PROVIDERS: Emergency Provider Emergency Medicine Emergency Medical Services
DX: F41.9 Anxiety disorder, unspecified (principal); I10 Essential (primary) hypertension
CPT/HCPCS: 99282; 99283

== ENCOUNTER 2021-05-19 12:38 | Outpatient (REF) | payer MEDICAID, SELFPAY ==
--- NOTE | ~2021-05-19 | CT_ITS ---
EXAMINATION: CT CERVICAL SPINE WITHOUT CONTRAST CLINICAL INFORMATION: Pain in left arm. Cervicalgia. COMPARISON: Plain films of the cervical spine 05/02/2019. TECHNIQUE: A noncontrast axial CT scan of the cervical spine was obtained. Coronal and sagittal reformatted images were generated at the acquisition workstation. This CT examination was performed using dose optimization techniques as appropriate, variously including the following: *Automated exposure control *Adjustment of mA and/or kV according to patient size (this includes techniques or standardized protocols for targeted exams where dose is matched to indication/reason for exam; i.e. extremities or head) *Use of iterative reconstruction technique DLP: 549 mGy-cm FINDINGS: There is reversal of the normal cervical lordosis. There is a minimal anterolisthesis of C2 on C3. There is narrowing of intervertebral disc height at C5-C6. The vertebral bodies of normal height and contour no fractures are demonstrated. The lateral masses of C1 and C2 are normally aligned. The dens is intact. The atlantooccipital articulations appear normal. The visualized intracranial structures are unremarkable. The ventricles are well-aerated. The paravertebral structures appear normal. Spinal levels: C2-C3: The facet joints appear normal bilaterally. Posterior disc contour is normal. There is no spinal cord compression or central stenosis. The neural foramina are patent bilaterally. C3-C4: The facet joints appear normal bilaterally. Posterior disc contour is normal. There is no spinal cord compression or central stenosis. The neural foramina are patent bilaterally. C4-C5: The facet joints appear normal bilaterally. Posterior disc contour is normal. There is no spinal cord compression or central stenosis. There are small uncovertebral osteophytes. There is slight right foraminal narrowing. C5-C6: The facet joints appear normal. There is a shallow posterior disc protrusion without central stenosis or cord compression. There are uncovertebral osteophytes and there is slight bilateral foraminal narrowing. C6-C7: The facet joints appear normal bilaterally. Posterior disc contour is normal. There is no spinal cord compression or central stenosis. The neural foramina are patent bilaterally. C7-T1: The facet joints appear normal bilaterally. Posterior disc contour is normal. There is no spinal cord compression or central stenosis. The neural foramina are patent bilaterally. CT/CT cervical spine wo con IMPRESSION: 1. There is reversal of the cervical lordosis which is likely positional. There is a minimal anterolisthesis of C2 on C3. There are no acute fractures or subluxations. 2. There is narrowing of intervertebral disc height at C5-C6. There is a shallow posterior disc protrusion without cord compression or central stenosis. There is slight bilateral foraminal narrowing.
== END 2021-05-19 12:39 | disposition home or self-care (01) ==
LOC: HO.CT 12:38
PROVIDERS: PCP Student in an Organized Health Care Education/Training Program; Visit Provider Emergency Medicine
DX: M54.2 Cervicalgia (principal); R20.0 Anesthesia of skin
CPT/HCPCS: 72125

== ENCOUNTER → 2021-06-02 13:29 | Outpatient (BNVA) | payer MEDICAID, SELFPAY | PROVIDERS: PCP Student in an Organized Health Care Education/Training Program; Visit Provider Nurse Practitioner Family | DX: R07.89 Other chest pain (principal); R00.2 Palpitations; R68.89 Other general symptoms and signs; E83.110 Hereditary hemochromatosis | CPT/HCPCS: 93005; 99212 ==

== ENCOUNTER 2021-06-08 03:57 | Emergency (ER) | payer MEDICAID, SELFPAY ==
--- NOTE | ~2021-06-08 | XR_ITS ---
EXAMINATION: XR CHEST CLINICAL INFORMATION: Chest pain COMPARISON: 11/27/2011 1 TECHNIQUE: Frontal view of the chest was obtained. FINDINGS: No significant abnormality is noted involving the heart, lungs, mediastinum, bony thorax or soft tissues. XR/XR chest 1V IMPRESSION: Unremarkable examination.
--- NOTE | 2021-06-08 04:03 | ECG_ITS ---
Test Reason : CHEST PAIN Blood Pressure : / mmHG Vent. Rate : 071 BPM Atrial Rate : 071 BPM P-R Int : 150 ms QRS Dur : 078 ms QT Int : 382 ms P-R-T Axes : 052 060 060 degrees QTc Int : 415 ms Normal sinus rhythm Normal ECG When compared with ECG of 06-APR-2021 00:48, No significant change was found Referred By: Berkley Baeza Electronically Signed By:TERRY FRANK MD
[2021-06-08 04:04] VITALS: BP 142/98; PULSE 76; RESP 15; TEMP 37.3; O2SAT 98
[2021-06-08 04:12] VITALS: BP 142/85; PULSE 75; RESP 18; TEMP 37.3; O2SAT 100; BMI 28.9
[2021-06-08 04:17] VITALS: BP 120/90; PULSE 80; O2SAT 100
--- NOTE | 2021-06-08 04:59 | ED.GENADULT ---
HPI - General Adult General Chief complaint: Extremity Problem Stated complaint: CP Time Seen by Provider: 06/08/21 04:02 Source: patient Mode of arrival: EMS History of Present Illness HPI narrative: This is a 35-year-old male with history of hemochromatosis who presents via EMS with complaints of swelling at the left biceps that he states is associated with pain that he feels up against the bone wraps around into his axilla in extends across his left chest and goes up into his neck. Patient states that he has also noticed that there is significant pain to his veins and that he is discuss this with post his business development analyst as well as his clinical liaison. Both of the specialist appear to be at [facility] and patient attends monthly phlebotomies for his hemochromatosis and his next is due in 4 days. Patient states that this evening he was carrying groceries home when he began feeling discomfort in the left arm. He then shows multiple pictures of the veins within his arm as well as his lower extremities. When asked what the recommendations were by his business development analyst her clinical liaison regarding the pain and appearance of his pains he states nothing, nobody is doing anything. Patient is requesting ultrasound. Related Data Home Medications Medication Instructions Recorded Confirmed aspirin 81 mg tablet,delayed 324 mg PO DAILY PRN tab 01/20/21 06/04/21 release (Adult Aspirin Regimen) doxepin 10 mg capsule 10 mg PO BEDTIME 06/02/21 06/04/21 Previous Rx's Medication Instructions Recorded albuterol sulfate 90 mcg/actuation 2 puff INHALATION Q4-6H PRN #8.5 g 11/03/20 aerosol inhaler (ProAir HFA) Allergies Allergy/AdvReac Type Severity Reaction Status Date / Time No Known Allergies Allergy Verified 04/05/21 23:42 Review of Systems Review of Systems: Pertinent positives and negatives as stated in HPI 10 point review of systems is otherwise negative. [facility] Past Medical History Source: nursing notes reviewed Medical History Anxiety Autosomal dominant hereditary hemochromatosis Dizziness HTN (hypertension) Mild intermittent allergic 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 Mood disorder Paresthesia Thyroid nodule Surgical History Hx of wisdom tooth extraction S/P fine needle aspiration Family History Family History Father CLL (chronic lymphocytic leukemia) Diabetes Paternal Grandfather Diabetes Maternal Grandmother H/O heart bypass surgery Mother Drug abuse Social History Social History Alcohol intake: never Patient Tobacco Use Status: Never used Tobacco Use of substances other than those prescribed or required for medical reasons: No Advance Directives: No Physical Exam ED Vital Signs: Vital Signs - 24 hr 06/08/21 04:04 06/08/21 04:12 06/08/21 06:02 Temperature 99.2 F 99.2 F Pulse Rate 76 75 71 Respiratory Rate 15 18 18 Blood Pressure 142/98 H 142/85 H 120/83 Pulse Oximetry 98 100 97 BMI result Body Mass Index 28.9 VITAL SIGNS: Reviewed. GENERAL: Well developed, well nourished, moderate distress due to anxiety. HEAD: Normocephalic/atraumatic EYES: PERRLA, EOMI intact without pain, no nystagmus EARS: Ext canals without abnormality OROPHARYNX: no oral lesions noted, posterior pharynx clear LUNGS: Normal breath sounds. No adventitious sounds or accessory muscle use. SpO2<98> CARDIOVASCULAR: Regular rate and rhythm without noted murmurs, no JVD or lower extremity edema. ABDOMEN: Soft, non-tender, non-distended with bowel sounds. MUSCULOSKELETAL: No tenderness, deformities, or effusions noted on gross inspection, although I observed the veins within patient's left shoulder and upper arm they do not appear to be red, swollen, enlarged and I do not appreciate any abnormality on the anterior chest wall. EXTREMITIES: No cyanosis, clubbing or edema. SKIN: Inspection of the skin reveals no rashes NEUROLOGIC: Alert and oriented x 4. Strength and sensation to light touch were grossly intact x 4. Course Course Course Narrative: 35-year-old male with history and clinical presentation most consistent with significant anxiety, however will insure that there is no sequela of patient's underlying hemochromatosis. Review of all investigations demonstrates ferritin level-441 which is the lowest when compared to priors and no evidence to suggest cardiopulmonary etiologies. Patient is scheduled for phlebotomy on the and is under excellent care by his clinical liaison and business development analyst and he was recommended to follow-up with his specialist for further evaluation of his concerns. Medical Decision Making Lab Data Result diagrams: 06/08/21 05:15 06/08/21 05:46 Labs: Lab Results 06/08/21 06/08/21 06/08/21 Range/Units 05:15 05:15 05:46 WBC 8.0 (4.8-10.8) X10*3/uL RBC 5.30 (4.60-5.80) X10*6/uL Hgb 17.3 (14.0-18.0) g/dl Hct 48.4 (42.0-52.0) % MCV 91.3 (80.0-98.0) fL MCH 32.6 (27.0-33.0) pg MCHC 35.7 (31.0-36.0) g/dl RDW 11.8 (11.0-16.0) % Plt Count 237 (160-400) X10*3/uL MPV 9.4 (9.4-12.4) fL Immature Gran % (Auto) 0.3 (0.0-0.4) % Neut % (Auto) 60.0 (45-73) % Lymph % (Auto) 29.1 (20-40) % [place] % (Auto) 8.5 (2-11) % Eos % (Auto) 1.5 (0-4) % Baso % (Auto) 0.6 (0-2) % Lymph # (Auto) 2.3 (1.2-4.9) X10*3/uL [place] # (Auto) 0.7 (0.1-1.2) X10*3/uL Eos # (Auto) 0.1 (0.0-0.4) X10*3/uL Baso # (Auto) 0.1 (0.0-0.2) X10*3/uL Abs Immat Gran (auto) 0.02 (0.00-0.03) X10*3/uL Absolute Neuts (auto) 4.8 (2.0-8.3) x10*3/uL Absolute Nucleated RBC 0.000 (0.0-0.012) X10*3/uL Nucleated RBC % (auto) 0.0 (0.0-0.2) /100WBC Sodium 138 (135-145) mmol/L Potassium 3.9 (3.3-5.1) mmol/L Chloride 104 (96-108) mmol/L Carbon Dioxide 29 (22-29) mmol/L Anion Gap 9 L (12-20) BUN 15 (9-16) mg/dL Creatinine 1.02 (0.5-1.4) mg/dL Estim Creat Clear Calc 118.3 Estimated GFR > 60 Random Glucose 96 (60-115) mg/dL Calcium 9.9 (8.4-10.2) mg/dL Ferritin 441 H (20-250) ng/mL Total Bilirubin 0.5 (0.0-1.0) mg/dL AST 18 (5-37) U/L ALT 45 H (0-40) U/L Alkaline Phosphatase 78 (39-117) U/L Troponin I High Sens 4.0 (<3.5-35.0) ng/L Total Protein 7.3 (6.5-8.0) g/dL Albumin 4.4 (3.5-5.0) g/dL 06/08/21 Range/Units 06:19 WBC (4.8-10.8) X10*3/uL RBC (4.60-5.80) X10*6/uL Hgb (14.0-18.0) g/dl Hct (42.0-52.0) % MCV (80.0-98.0) fL MCH (27.0-33.0) pg MCHC (31.0-36.0) g/dl RDW (11.0-16.0) % Plt Count (160-400) X10*3/uL MPV (9.4-12.4) fL Immature Gran % (Auto) (0.0-0.4) % Neut % (Auto) (45-73) % Lymph % (Auto) (20-40) % [place] % (Auto) (2-11) % Eos % (Auto) (0-4) % Baso % (Auto) (0-2) % Lymph # (Auto) (1.2-4.9) X10*3/uL [place] # (Auto) (0.1-1.2) X10*3/uL Eos # (Auto) (0.0-0.4) X10*3/uL Baso # (Auto) (0.0-0.2) X10*3/uL Abs Immat Gran (auto) (0.00-0.03) X10*3/uL Absolute Neuts (auto) (2.0-8.3) x10*3/uL Absolute Nucleated RBC (0.0-0.012) X10*3/uL Nucleated RBC % (auto) (0.0-0.2) /100WBC Sodium (135-145) mmol/L Potassium (3.3-5.1) mmol/L Chloride (96-108) mmol/L Carbon Dioxide (22-29) mmol/L Anion Gap (12-20) BUN (9-16) mg/dL Creatinine (0.5-1.4) mg/dL Estim Creat Clear Calc Estimated GFR Random Glucose (60-115) mg/dL Calcium (8.4-10.2) mg/dL Ferritin (20-250) ng/mL Total Bilirubin (0.0-1.0) mg/dL AST (5-37) U/L ALT (0-40) U/L Alkaline Phosphatase (39-117) U/L Troponin I High Sens < 3.5 (<3.5-35.0) ng/L Total Protein (6.5-8.0) g/dL Albumin (3.5-5.0) g/dL ECG Data Attestation: I personally reviewed and interpreted this ECG as follows: Prior ECG tracings: available for review Interpretation: NSR, HR-71, no STEMI, [place]/QRS/QTC are within normal limits. Discharge Plan Discharge Clinical Impression: Thrombophlebitis, Hemochromatosis, Atypical chest pain Patient Disposition: Home, Self-Care Instructions: Hemochromatosis (DC), Therapeutic Phlebotomy (DC), Chest Pain (ED) Additional Instructions: 1. Resume all home medications as prescribed. 2. Ibuprofen 400 mg, orally with milk or food, every 6 hours as needed for pain in your veins. 3. Keep your scheduled appointment for phlebotomy. 4. Please follow-up with your clinical liaison and business development analyst in the next 1-2 days for re-evaluation further outpatient management. Return to the ER for worsening symptoms. Prescriptions: No Action albuterol sulfate [ProAir HFA] 90 mcg/actuation HFA aerosol inhaler 2 puff inhalation Q4-6H PRN (Reason: shortness of breath or wheezing) Qty: 8.5 0RF aspirin [Adult Aspirin Regimen] 81 mg tablet,delayed release (DR/EC) 324 mg PO DAILY PRN (Reason: tachycardia) 0RF doxepin 10 mg capsule 10 mg PO BEDTIME 0RF Referrals: Kaylie Cardona MD [Primary Care Provider] - 2 days
[2021-06-08 05:20] LABS: Basophils Absolute Auto 0.1 X10*3/uL (0.0-0.2); Basophils Percent Auto 0.6 % (0-2); Eosinophils Absolute Auto 0.1 X10*3/uL (0.0-0.4); Eosinophils Percent Auto 1.5 % (0-4); Hematocrit 48.4 % (42.0-52.0); Hemoglobin 17.3 g/dl (14.0-18.0); Imm Gran Abs Auto 0.02 X10*3/uL (0.00-0.03); Imm Gran Pct Auto 0.3 % (0.0-0.4); Lymphocytes Absolute Auto 2.3 X10*3/uL (1.2-4.9); Lymphocytes Percent Auto 29.1 % (20-40); MANUAL DIFF FLAG NO; Mean Corpuscular HGB Conc 35.7 g/dl (31.0-36.0); Mean Corpuscular Hemoglobin 32.6 pg (27.0-33.0); Mean Corpuscular Volume 91.3 fL (80.0-98.0); Mean Platelet Volume 9.4 fL (9.4-12.4); Monocytes Absolute Auto 0.7 X10*3/uL (0.1-1.2); Monocytes Percent Auto 8.5 % (2-11); Neutrophils Absolute Auto 4.8 x10*3/uL (2.0-8.3); Platelet Count 237 X10*3/uL (160-400); Red Cell Distribution Width 11.8 % (11.0-16.0)
[2021-06-08 06:02] VITALS: BP 120/83; PULSE 71; RESP 18; O2SAT 97
[2021-06-08 06:09] LABS: Alanine Aminotransferase 45 U/L (0-40); Albumin Level 4.4 g/dL (3.5-5.0); Alkaline Phosphatase 78 U/L (39-117); Anion Gap 9 (12-20); Aspartate Amino Transferase 18 U/L (5-37); Bilirubin Total 0.5 mg/dL (0.0-1.0); Blood Urea Nitrogen 15 mg/dL (9-16); Calcium 9.9 mg/dL (8.4-10.2); Carbon Dioxide 29 mmol/L (22-29); Chloride 104 mmol/L (96-108); Creatinine Clr Calc Pharmacy 118.3; Estimated Glomerular Filt Rate > 60; Glucose Random 96 mg/dL (60-115); Potassium 3.9 mmol/L (3.3-5.1); Sodium 138 mmol/L (135-145); Total Protein 7.3 g/dL (6.5-8.0)
[2021-06-08 06:27] LABS: Ferritin 441 ng/mL (20-250)
[2021-06-08 06:49] LABS: Troponin-I High Sensitivity < 3.5 ng/L (<3.5-35.0)
[2021-06-10 14:36] LABS: Transferrin 213 mg/dL (188-341)
== END 2021-06-08 07:43 | disposition home or self-care (01) ==
PROVIDERS: Emergency Provider Student in an Organized Health Care Education/Training Program; PCP Student in an Organized Health Care Education/Training Program
DX: I80.8 Phlebitis and thrombophlebitis of other sites (principal); E83.119 Hemochromatosis, unspecified; R07.89 Other chest pain; I10 Essential (primary) hypertension
CPT/HCPCS: 36415; 71045; 80053; 82728; 84466; 84484; 85025; 93005; 99283; 99284

== ENCOUNTER 2021-06-15 14:51 | Outpatient (REF) | payer MEDICAID, SELFPAY ==
[2021-06-15 16:35] LABS: Appearance Urine CLEAR; Color Urine YELLOW; Glucose Urine UA NEG (NEG); Leukocyte Esterase Urine NEG (NEG); Nitrite Urine NEG (NEG); Specific Gravity - Urine 1.025 (1.005-1.025); Urine Blood NEG (NEG); Urine Ketones 5 MG/DL (NEG); Urine Protein NEG (NEG-TRACE)
[2021-06-15 16:53] LABS: Creatinine Urine 219.75 mg/dL; Microalbum/Creatinine Ratio Ur 15.4 ug/mg cr
[2021-06-15 17:12] LABS: RBC Urine 0-2 /HPF (0); WBC Urine 0-2 /HPF (0-4)
[2021-06-15 17:13] LABS: Mucus Urine 1+ /LPF
== END 2021-06-15 14:52 | disposition home or self-care (01) ==
LOC: HO.HMGCLDS 14:51
PROVIDERS: Visit Provider Nurse Practitioner Primary Care
DX: M79.602 Pain in left arm (principal); M79.605 Pain in left leg; R74.8 Abnormal levels of other serum enzymes
CPT/HCPCS: 81001; 82043

== ENCOUNTER 2021-06-16 14:08 | Outpatient (REF) | payer MEDICAID, SELFPAY | END 2021-06-16 14:09 | disposition home or self-care (01) | LOC: HO.BBR 14:08 | PROVIDERS: Visit Provider Internal Medicine | DX: Z13.89 Encounter for screening for other disorder (principal) ==

== ENCOUNTER 2021-06-17 14:26 | Outpatient (REF) | payer MEDICAID, SELFPAY ==
--- NOTE | ~2021-06-17 | US_ITS ---
EXAMINATION: US THYROID CLINICAL INFORMATION: Nontoxic multinodular goiter. Status post right thyroid biopsy in May 2019 with benign result according to patient. COMPARISON: Ultrasound soft tissue head/neck thyroid dated 05/23/2019. TECHNIQUE: Linear transducer grayscale and color Doppler examination with attention to the region of the thyroid. FINDINGS: SIZE: Measurements of the thyroid lobes and nodules are given in sagittal, anteroposterior and transverse dimensions respectively. Right Thyroid Lobe: 5.4 x 1.7 x 1.3 cm, volume 5.9 mL. Previously 5.0 x 1.5 x 1.8 cm, volume 7.2 mL. Parenchyma: The gland echotexture is homogeneous. Thyroid vascularity is normal. Left Thyroid Lobe: 5.1 x 0.92 x 1.1 cm, volume 2.7 mL. Previously 4.6 x 0.78 x 1.1 cm, volume 2.1 mL. Parenchyma: The gland echotexture is homogeneous. Thyroid vascularity is normal. Isthmus: 0.35 cm in maximum AP dimension. Previously 0.20 cm. Estimated total number of nodules greater than or equal to 1 cm: 1. Hosiery Operator nodules are described as follows: 1. Location: Right inferior. Size: 0.46 x 0.40 x 0.51 cm, volume 0.05 mL. Previously: 0.38 x 0.41 x 0.37 cm, volume 0.03 mL. Nodule characteristics: Composition: Spongiform (0). Echogenicity: Cannot be determined (1). Shape: Not taller than wide (0). Margins: Irregular (2). Echogenic Foci: None (0). ACR TI-RADS total points: 3 Previous: n/a ACR TI-RADS category: 3 Previous: n/a Significant change in size (>/= 20% in 2 dimensions and minimal increase of 2 mm or 50% or greater increase in volume): No Change in features: No Change in ACR TI-RADS risk category: n/a 2. Location: Right mid. Size: 2.1 x 0.96 x 2.1 cm, volume 2.2 mL. Previously: 1.8 x 0.65 x 1.5 cm, volume 0.92 mL. Nodule characteristics: Composition: Solid (2). Echogenicity: Isoechoic (1). Shape: Not taller than wide (0). Margins: Smooth (0). Echogenic Foci: None (0). ACR TI-RADS total points: 3 Previous: n/a ACR TI-RADS category: 3 Previous: n/a Significant change in size (>/= 20% in 2 dimensions and minimal increase of 2 mm or 50% or greater increase in volume): Yes Change in features: No Change in ACR TI-RADS risk category: n/a NODES: No lymphadenopathy is seen in the tissue surrounding the thyroid gland. US/US thyroid IMPRESSION: Both right thyroid lobe lesions are TI-RAD 3 with the previous dominant nodule being biopsied with benign results according to the patient.. Recommend continued follow-up in 3 and 5 years. ACR TI-RADS RECOMMENDATION REFERENCE: Ultrasound-guided fine-needle aspiration, followup ultrasound, no further follow up. * TR1 (0 point) and TR 2 (2 points): No FNA or follow up * TR3 (3 points): FNA if more than or equal to 2.5 cm in maximum dimension, followup ultrasound in 1, 3 and 5 years if 1.5 to 2.4 cm in maximum dimension. * TR4 (4-6 points): FNA if more than or equal to 1.5 cm in maximum dimension, followup ultrasound in 1, 2, 3 and 5 years if 1 to 1.4 cm in maximum dimension. * TR5 (more than or equal to 7 points): FNA if more than or equal to 1 cm in maximum dimension, followup ultrasound every year for 5 years if 0.5 to 0.9 cm in maximum dimension. * TR3, TR4 or TR5 nodules that are below the size threshold for follow up receive no follow up.
--- NOTE | ~2021-06-17 | US_ITS ---
EXAMINATION: US VENOUS ULTRASOUND WITH DOPPLER LOWER EXTREMITY, LEFT CLINICAL INFORMATION: Left leg pain COMPARISON: None TECHNIQUE: Ultrasound of the deep veins is performed from the hip to the calf with compression sonography and color and pulse Doppler assessment. Spectral analysis with color-flow imaging is performed. FINDINGS: There is normal venous compression and respiratory variation and augmented flow. The visualized common femoral vein, superficial femoral vein, profunda femoral vein and posterior tibial and peroneal veins. There is compressible partial chronic clot in the popliteal vein with normal Doppler flow. There is no significant popliteal fossa cyst. If the patient's symptoms persist, followup ultrasound in 5 days 7 days might be of value to exclude proximal propagation from a non-visualized calf vein. US/US venous duplex LE LT IMPRESSION: No acute DVT demonstrated in the left lower extremity. There is partial chronic compressible clot seen in the popliteal vein with normal Doppler flow.
== END 2021-06-17 14:27 | disposition home or self-care (01) ==
LOC: HO.HMGCX 14:26
PROVIDERS: PCP Student in an Organized Health Care Education/Training Program; Visit Provider Internal Medicine Endocrinology, Diabetes & Metabolism
DX: E04.2 Nontoxic multinodular goiter (principal); M79.662 Pain in left lower leg
CPT/HCPCS: 76536; 93971

== ENCOUNTER 2021-06-23 13:18 | Outpatient (REF) | payer MEDICAID, SELFPAY ==
[2021-06-23 16:50] LABS: MANUAL DIFF FLAG NO
[2021-06-23 16:53] LABS: Basophils Percent Auto 0.5 % (0-2); Eosinophils Absolute Auto 0.1 X10*3/uL (0.0-0.4); Eosinophils Percent Auto 1.2 % (0-4); Hematocrit 46.9 % (42.0-52.0); Hemoglobin 16.6 g/dl (14.0-18.0); Imm Gran Abs Auto 0.02 X10*3/uL (0.00-0.03); Imm Gran Pct Auto 0.3 % (0.0-0.4); Lymphocytes Absolute Auto 2.2 X10*3/uL (1.2-4.9); Lymphocytes Percent Auto 30.1 % (20-40); Mean Corpuscular HGB Conc 35.4 g/dl (31.0-36.0); Mean Corpuscular Hemoglobin 32.9 pg (27.0-33.0); Mean Corpuscular Volume 92.9 fL (80.0-98.0); Monocytes Absolute Auto 0.6 X10*3/uL (0.1-1.2); Monocytes Percent Auto 7.5 % (2-11); Neutrophils Absolute Auto 4.5 x10*3/uL (2.0-8.3); Neutrophils Percent Auto 60.4 % (45-73); Platelet Count 310 X10*3/uL (160-400); Red Blood Count 5.05 X10*6/uL (4.60-5.80); Red Cell Distribution Width 12.3 % (11.0-16.0); White Blood Count 7.4 X10*3/uL (4.8-10.8)
[2021-06-23 17:10] LABS: Alanine Aminotransferase 30 U/L (0-40); Albumin Level 4.4 g/dL (3.5-5.0); Alkaline Phosphatase 77 U/L (39-117); Anion Gap 14 (12-20); Aspartate Amino Transferase 20 U/L (5-37); Bilirubin Direct 0.2 mg/dL (0.0-0.5); Bilirubin Total 0.6 mg/dL (0.0-1.0); Blood Urea Nitrogen 13 mg/dL (9-16); C Reactive Protein 0.03 mg/dL (< or = 0.50); Calcium 10.1 mg/dL (8.4-10.2); Carbon Dioxide 26 mmol/L (22-29); Chloride 100 mmol/L (96-108); Cholesterol 218 mg/dL; Estimated Glomerular Filt Rate > 60; Glucose Fasting 97 mg/dL (60-99); HDL Cholesterol 33 mg/dL; LDL Cholesterol Calculated 149 mg/dl; Lipase 91 U/L (8-78); Potassium 4.3 mmol/L (3.3-5.1); Sodium 136 mmol/L (135-145); Total Protein 7.4 g/dL (6.5-8.0); Triglycerides 180 mg/dL
[2021-06-23 17:33] LABS: Free T4 (Free Thyroxine) 0.91 ng/dL (0.71-1.85); Thyroid Stimulating Hormone 1.96 uIU/mL (0.32-4.0)
[2021-06-23 18:28] LABS: Erythrocyte Sedimentation Rate 1 MM/HR (0-15)
[2021-06-24 04:56] LABS: Triiodothyronine T3 Free 3.6 pg/mL (2.3-4.2)
== END 2021-06-23 13:19 | disposition home or self-care (01) ==
LOC: HO.HMGCLDS 13:18
PROVIDERS: Absent Provider Nurse Practitioner Primary Care; PCP Student in an Organized Health Care Education/Training Program; Visit Provider Family Medicine
DX: E83.119 Hemochromatosis, unspecified (principal); M79.602 Pain in left arm; M79.605 Pain in left leg; R74.8 Abnormal levels of other serum enzymes
CPT/HCPCS: 36415; 80048; 80061; 80076; 82550; 83690; 84439; 84443; 84481; 85025; 85652; 86140

== ENCOUNTER → 2021-06-30 09:39 | Outpatient (BNVA) | payer MEDICAID, SELFPAY | PROVIDERS: PCP Student in an Organized Health Care Education/Training Program; Visit Provider Internal Medicine Endocrinology, Diabetes & Metabolism | DX: E04.1 Nontoxic single thyroid nodule (principal) | CPT/HCPCS: 99212 ==

== ENCOUNTER → 2021-07-09 11:06 | Outpatient (BNVA) | payer MEDICAID, SELFPAY | PROVIDERS: PCP Student in an Organized Health Care Education/Training Program; Visit Provider Surgery Vascular Surgery | DX: I82.409 Acute embolism and thrombosis of unspecified deep veins of unspecified lower extremity (principal); R07.89 Other chest pain | CPT/HCPCS: 99202 ==

== ENCOUNTER 2021-07-17 22:01 | Emergency (ER) | payer MEDICAID, SELFPAY ==
--- NOTE | ~2021-07-17 | XR_ITS ---
EXAMINATION: XR SHOULDER, LEFT CLINICAL INFORMATION: Shoulder pain COMPARISON: None TECHNIQUE: Four views of the left shoulder. FINDINGS: No fracture or dislocation. The glenohumeral joint is well aligned. Joint spaces maintained. The acromioclavicular joint is intact. The visualized ribs are intact. The visualized lung is clear. XR/XR shoulder LT min 2V IMPRESSION: Normal left shoulder.
[2021-07-17 23:55] VITALS: BP 135/92; PULSE 76; RESP 18; TEMP 36.9; O2SAT 98; BMI 28.9
[2021-07-18] MEDS: Magnesium Hydrox/Alum Hydrox 30 ML ORAL.SUSP PO (01:36)
[2021-07-18 03:24] VITALS: BP 145/99; PULSE 67; RESP 14; O2SAT 97
--- NOTE | 2021-07-18 04:33 | ED_ITS ---
HPI - Extremity Problem General Chief complaint: Extremity Injury, Upper Stated complaint: shoulder pain Time Seen by Provider: 07/17/21 23:48 Source: patient Mode of arrival: ambulatory History of Present Illness HPI Narrative: 35-year-old male with significant past medical history of hemochromatosis and thyroid nodule who presents with left shoulder pain on minimal movement and states that there was a ?snapping pain to his left shoulder? that is not associated with numbness, tingling, weakness to the distal extremity. Related Data Home Medications Medication Instructions Recorded Confirmed aspirin 81 mg tablet,delayed 324 mg PO DAILY PRN tab 01/20/21 06/30/21 release (Adult Aspirin Regimen) doxepin 10 mg capsule 10 mg PO BEDTIME PRN 06/30/21 06/30/21 desonide 0.05 % topical cream appl TOPICAL BID 07/09/21 fluocinolone 0.01 % topical body TOPICAL TID 07/09/21 oil lactulose 10 gram/15 mL oral 30 ml PO BID PRN 07/09/21 solution Previous Rx's Medication Instructions Recorded albuterol sulfate 90 mcg/actuation 2 puff INHALATION Q4-6H PRN #8.5 g 11/03/20 aerosol inhaler (ProAir HFA) apixaban 5 mg tablet (Eliquis) 5 mg PO BID #74 tab 06/17/21 Allergies Allergy/AdvReac Type Severity Reaction Status Date / Time No Known Allergies Allergy Verified 07/09/21 11:08 Review of Systems Review of Systems: Pertinent positives and negatives as stated in the HPI 10 point review of systems is otherwise negative. [facility] Past Medical History Source: nursing notes reviewed Medical History Anxiety Autosomal dominant hereditary hemochromatosis Dizziness HTN (hypertension) Mild intermittent allergic 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 Mood disorder Paresthesia Thyroid nodule Surgical History Hx of wisdom tooth extraction S/P fine needle aspiration Family History Family History Father CLL (chronic lymphocytic leukemia) Diabetes Paternal Grandfather Diabetes Maternal Grandmother H/O heart bypass surgery Mother Drug abuse Social History Social History Household Members: None Housing: Apartment Are you a primary nursing care attendant to a significant other at home: No Do you presently have visiting nurse or other home services: No Alcohol intake: never Patient Tobacco Use Status: Never used Tobacco Advance Directives: No Advance Directives Information Provided: No service: No Current occupational status: unemployed Physical Exam Vital Signs: Vital Signs: Last Vital Signs Temp 98.4 F 07/17/21 23:55 Pulse 67 07/18/21 03:24 Resp 14 07/18/21 03:24 BP 145/99 H 07/18/21 03:24 Pulse Ox 97 07/18/21 03:24 BMI result Body Mass Index 28.9 VITAL SIGNS: Reviewed. GENERAL: Well developed, well nourished, in no acute distress. HEAD: Normocephalic/atraumatic EYES: PERRLA, EOMI EARS: Ext canals without abnormality OROPHARYNX: no oral lesions noted, posterior pharynx clear LUNGS: Normal breath sounds. No adventitious sounds or accessory muscle use. SpO2<97> CARDIOVASCULAR: Regular rate and rhythm without noted murmurs ABDOMEN: Soft, non-tender, non-distended with bowel sounds. MUSCULOSKELETAL: No tenderness, deformities, or effusions noted on gross inspection. EXTREMITIES: No cyanosis, clubbing or edema; LEFT SHOULDER: No erythema, swelling, ecchymosis noted to the shoulder, there is full range of motion and patient is noted to push himself up in bed using both upper extremities without difficulty but on examination he describes difficulty with raising his left upper extremity above 90 degrees. Distal pulses and sensation are intact with good capillary refill. SKIN: Inspection of the skin reveals no rashes NEUROLOGIC: Alert and oriented x 4. Strength and sensation to light touch were grossly intact x 4. Course Course Course Narrative: 35-year-old male with history and clinical presentation consistent with possible soft tissue injury after review of shoulder x-ray does not demonstrate any joint space abnormalities or bony abnormalities. Patient was informed of all results and recommendations are for discharge and follow-up with a sports medicine physician to pursue either physical therapy or further imaging as indicated. Discharge Plan Discharge Clinical Impression: Left shoulder pain, Hemochromatosis, Thyroid nodule Patient Disposition: Home, Self-Care Instructions: Shoulder Pain (ED) Additional Instructions: 1. Recommend [id number] Voltaren (diclofenac) 0.5% and apply to your left shoulder as directed on the outside packaging. 2. Recommend follow-up with a sports medicine physician to discuss physical therapy versus further imaging. Return to the ER for worsening symptoms. Prescriptions: No Action albuterol sulfate [ProAir HFA] 90 mcg/actuation HFA aerosol inhaler 2 puff inhalation Q4-6H PRN (Reason: shortness of breath or wheezing) Qty: 8.5 0RF Eliquis 5 mg Tablet 5 mg PO BID Qty: 74 3RF Rx Instructions: Take 10 mg b.i.d. for 1 week followed by 5 mg b.i.d. aspirin [Adult Aspirin Regimen] 81 mg tablet,delayed release (DR/EC) 324 mg PO DAILY PRN (Reason: tachycardia) 0RF desonide 0.05 % cream topical BID 0RF fluocinolone 0.01 % oil topical TID 0RF lactulose 10 gram/15 mL solution 30 ml PO BID PRN (Reason: constipation) 0RF doxepin 10 mg capsule 10 mg PO BEDTIME [id number] Referrals: Kaylie Cardona MD [Primary Care Provider] -
== END 2021-07-18 04:59 | disposition home or self-care (01) ==
PROVIDERS: Emergency Provider Student in an Organized Health Care Education/Training Program; PCP Student in an Organized Health Care Education/Training Program
DX: M25.512 Pain in left shoulder (principal); E83.119 Hemochromatosis, unspecified; E04.1 Nontoxic single thyroid nodule; I10 Essential (primary) hypertension
CPT/HCPCS: 73030; 99283; 99284

== ENCOUNTER 2021-07-21 18:21 | Emergency (ER) | payer MEDICAID, SELFPAY ==
--- NOTE | ~2021-07-21 | CT_ITS ---
EXAMINATION: CT ABDOMEN AND PELVIS WITH CONTRAST CLINICAL INFORMATION: Left upper quadrant pain with question of splenic infarct COMPARISON: Ultrasound abdomen 03/26/2021 TECHNIQUE: Multidetector volumetric images were obtained from the superior aspect of the liver through the pubic symphysis following administration 85 mL of Omnipaque 350 intravenous contrast. Sagittal and coronal reformatted images were obtained on the technologist's workstation. Oral contrast: No This CT examination was performed using dose optimization techniques as appropriate, variously including the following: *Automated exposure control *Adjustment of mA and/or kV according to patient size (this includes techniques or standardized protocols for targeted exams where dose is matched to indication/reason for exam; i.e. extremities or head) *Use of iterative reconstruction technique DLP: 1305 mGy-cm FINDINGS: LUNG BASES: The visualized lung bases are unremarkable. LIVER, GALLBLADDER, AND BILIARY TREE: The liver is normal in size, shape, and attenuation. Some tiny cysts are present in the liver. No worrisome solid focal hepatic lesion or biliary ductal dilatation is present. The gallbladder is unremarkable with no evidence of radiopaque gallstones, gallbladder wall thickening, or obvious pericholecystic inflammatory changes. PANCREAS: Unremarkable. SPLEEN: Upper limits of normal in size Calcified splenic granuloma is present. A 1.6 cm splenule is noted in the jazmin. No splenic infarct is seen. ADRENAL GLANDS: Unremarkable. KIDNEYS AND URETERS: The kidneys are normal in size, shape, and attenuation. Bilateral Bosniak class I renal cysts are present. No further imaging or follow-up is needed. No solid renal masses are seen. No hydronephrosis, hydroureter, or calculi seen. No perinephric stranding. BLADDER: Unremarkable. GASTROINTESTINAL TRACT: The small and large bowel are unremarkable. The appendix is unremarkable. ABDOMINAL WALL: No significant hernia is appreciated. LYMPH NODES: Normal. VASCULAR: Unremarkable. PELVIC VISCERA: Unremarkable. OSSEOUS STRUCTURES: Unremarkable. CT/CT abdomen pelvis w con IMPRESSION: No significant abnormality. A cause for the patient's left upper quadrant pain has not been found. Fleischner guidelines were followed.
--- NOTE | ~2021-07-21 | CT_ITS ---
EXAMINATION: CT ANGIOGRAM OF THE CHEST WITH AND WITHOUT CONTRAST (CT PULMONARY ANGIOGRAM FOR PE) CLINICAL INFORMATION: Reason for Exam Tachycardia, history of hemochromatosis, htn COMPARISON: CT abdomen pelvis 08/05/2020 TECHNIQUE: Prior to contrast administration, noncontrast localization images were obtained. Subsequently, multidetector volumetric imaging was performed from the thoracic inlet to below the diaphragms following the administration of 85 mL Omnipaque 350 intravenous contrast. No contrast reaction reported Sagittal, coronal, and MIP oblique sagittal reformatted images were obtained on the CT workstation, uploaded to PACS, and reviewed. This CT examination was performed using dose optimization techniques as appropriate, variously including the following: *Automated exposure control *Adjustment of mA and/or kV according to patient size (this includes techniques or standardized protocols for targeted exams where dose is matched to indication/reason for exam; i.e. extremities or head) *Use of iterative reconstruction technique Total exam dose-length product 452 mGy-cm FINDINGS: QUALITY OF STUDY/CONTRAST BOLUS: Satisfactory. PULMONARY ARTERIES: No central or segmental pulmonary emboli. THORACIC AORTA: No aneurysm or dissection. LUNG: No focal consolidation, worrisome nodules or masses. A 2 mm right lower lobe nodule is present (8:237 along with a 2 mm nodule in the posterior basal segment of the right lower lobe (8:355). This latter nodule was included on the CT scan from one year ago and is unchanged. PLEURA: No pleural effusion or pneumothorax. MEDIASTINUM: Normal heart size. No pericardial effusion. No hilar or mediastinal lymphadenopathy. No evidence of septal bowing or right heart strain. CHEST WALL/AXILLA: No axillary or internal mammary lymphadenopathy. OSSEOUS STRUCTURES: No acute or suspicious osseous abnormality. UPPER ABDOMEN: See report CT abdomen same day No reflux of contrast into the hepatic veins to suggest elevated right heart pressures. CT/CT angio chest PE protocol IMPRESSION: No evidence of pulmonary emboli. VTE: negative
--- NOTE | ~2021-07-21 | CT_ITS ---
EXAMINATION: CT HEAD WITHOUT CONTRAST CLINICAL INFORMATION: Hypertension COMPARISON: None TECHNIQUE: Contiguous axial imaging was performed from the skull base to vertex without intravenous administration of contrast. This CT examination was performed using dose optimization techniques as appropriate, variously including the following: *Automated exposure control *Adjustment of mA and/or kV according to patient size (this includes techniques or standardized protocols for targeted exams where dose is matched to indication/reason for exam; i.e. extremities or head) *Use of iterative reconstruction technique DLP: 764 mGy-cm FINDINGS: There is no evidence of acute intracranial hemorrhage or territorial infarction. No abnormal mass effect or midline shift is seen. Young to white matter differentiation is well preserved. No extra-axial fluid collections are identified. The ventricles are normal in size. There is no abnormal attenuation within the brain parenchyma. The osseous structures and soft tissues are normal. The mastoid air cells and visualized portions of the paranasal sinuses are well aerated. CT/CT head/brain wo con IMPRESSION: No acute intracranial pathology.
--- NOTE | ~2021-07-21 | XR_ITS ---
EXAMINATION: XR CHEST CLINICAL INFORMATION: Chest pain. Palpitations. COMPARISON: Most recent chest radiograph dated 06/08/2021. TECHNIQUE: Frontal view of the chest was obtained. FINDINGS: The lungs are clear. The cardiomediastinal silhouette is normal in size. There is no pleural effusion or pneumothorax. No acute osseous abnormality. XR/XR chest 1V IMPRESSION: No acute cardiopulmonary findings.
[2021-07-21 18:37] VITALS: BP 131/97; PULSE 97; O2SAT 96
--- NOTE | 2021-07-21 18:37 | ECG_ITS ---
Test Reason : PALPATIONS Blood Pressure : / mmHG Vent. Rate : 080 BPM Atrial Rate : 080 BPM P-R Int : 144 ms QRS Dur : 076 ms QT Int : 356 ms P-R-T Axes : 047 045 027 degrees QTc Int : 410 ms Normal sinus rhythm Normal ECG When compared with ECG of 08-JUN-2021 04:07, No significant change was found Referred By: Brie Talley Electronically Signed By:CRUZ GARCIA
[2021-07-21 18:43] VITALS: BP 150/91; PULSE 96; RESP 18; TEMP 37; O2SAT 96; BMI 28.9
--- NOTE | 2021-07-21 18:57 | ED.GENADULT ---
HPI - General Adult General Chief complaint: General Medical Stated complaint: HEART PALPITAIONS, 105 @ THIS TIME PER EMS Time Seen by Provider: 07/21/21 18:24 Source: patient Mode of arrival: ambulatory Limitations: no limitations History of Present Illness HPI narrative: This is a 35-year-old male past medical history significant for hemochromatosis receiving phlebotomy treatments every 2 weeks at [facility] presenting to the emergency department with complaints of high blood pressure, abdominal pain, palpitations x1 day. Patient tells me he has been having episodes like this on and off for the past 6 months however today he told me he felt like he should be evaluated. Patient tells me that he took his blood pressure at home it was reading 150s over low 100s patient became worried and wanted to get evaluated in the emergency department. Patient tells me that his abdominal pain is localized to the left upper quadrant it is a stabbing pain, without radiation. Patient also reports intermittent palpitations. Denies shortness of breath, nausea, vomiting, abdominal pain, weakness. Onset (ago): day(s) (1) Location: abdomen Radiation: non-radiation Severity: severe Pain Consistency: intermittent Relieving factors: none Exacerbating factors: none Associated symptoms: diaphoresis and other (Palpitations) Treatments prior to arrival: none Related Data Home Medications Medication Instructions Recorded Confirmed aspirin 81 mg tablet,delayed 324 mg PO DAILY PRN tab 01/20/21 06/30/21 release (Adult Aspirin Regimen) doxepin 10 mg capsule 10 mg PO BEDTIME PRN 06/30/21 06/30/21 desonide 0.05 % topical cream appl TOPICAL BID 07/09/21 fluocinolone 0.01 % topical body TOPICAL TID 07/09/21 oil lactulose 10 gram/15 mL oral 30 ml PO BID PRN 07/09/21 solution Previous Rx's Medication Instructions Recorded albuterol sulfate 90 mcg/actuation 2 puff INHALATION Q4-6H PRN #8.5 g 11/03/20 aerosol inhaler (ProAir HFA) apixaban 5 mg tablet (Eliquis) 5 mg PO BID #74 tab 06/17/21 morphine 15 mg immediate release 15 mg PO BID PRN #6 tab 07/21/21 tablet Allergies Allergy/AdvReac Type Severity Reaction Status Date / Time No Known Allergies Allergy Verified 07/09/21 11:08 Review of Systems Review of Systems: Constitutional : No Weight loss, No Fever, No Chills, No Fatigue, No Malaise ENT/Mouth : No sore throat, No Rhinorrhea Eyes: No Eye Pain, No Swelling, No Redness Cardiovascular : No Chest Pain, No SOB, No Dyspnea on Exertion, No Orthopnea, No Edema, + Palpitations Respiratory : No Cough, No Sputum, No Wheezing Gastrointestinal : No Nausea, No Vomiting, No Diarrhea, + Constipation, + abdominal Pain, No Hematochezia, No Melena Genitourinary : No Dysuria, No Urinary Frequency, No Hematuria, Musculoskeletal : No joint pain, No Myalgias, No Joint Swelling Skin : No Skin Lesions, No rash Neuro : No Weakness, No Numbness, No Dizziness, No Headache Psych : No Anxiety/Panic, No Depression All other systems reviewed and are negative Yes all other systems are reviewed and are negative [facility] Past Medical History Attestation statement: The following information was validated with the patient. Source: old records reviewed and nursing notes reviewed Medical History Anxiety Autosomal dominant hereditary hemochromatosis Dizziness HTN (hypertension) Mild intermittent allergic 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 Mood disorder Paresthesia Thyroid nodule Surgical History Hx of wisdom tooth extraction S/P fine needle aspiration Family History Family History Father CLL (chronic lymphocytic leukemia) Diabetes Paternal Grandfather Diabetes Maternal Grandmother H/O heart bypass surgery Mother Drug abuse Social History Social History Household Members: None Housing: Apartment Are you a primary child care associate teacher to a significant other at home: No Do you presently have visiting nurse or other home services: No Alcohol intake: never Patient Tobacco Use Status: Never used Tobacco Use of substances other than those prescribed or required for medical reasons: No Advance Directives: No Advance Directives Information Provided: No service: No Current occupational status: unemployed Physical Exam ED Vital Signs: Vital Signs - 24 hr 07/21/21 18:43 07/21/21 19:43 07/21/21 22:44 Temperature 98.6 F 98.7 F Pulse Rate 96 85 71 Respiratory Rate 18 12 16 Blood Pressure 150/91 H 139/95 H 131/91 H Pulse Oximetry 96 96 97 BMI result Body Mass Index 28.9 Vital signs stable Appearance: Alert.? Oriented X3.? No acute distress.? Head: Normocephalic, atraumatic, no step-offs or deformities Eyes: Pupils equal, round and reactive to light.? ENT: Pharynx normal.? Neck: Normal inspection.? Neck supple.? CVS: Rapid rate, normal rhythm, likely sinus tachycardia. Pulses normal.? Respiratory: No respiratory distress.? Breath sounds normal.? Abdomen: Soft and positive tenderness to the right upper quadrant, + Johnston sign Skin: Skin warm and dry.? Normal skin color.? Normal skin turgor.? Extremities: No lower extremity edema.? No calf ttp. 5/5 strength to bilateral upper and lower extremities Back: No midline tenderness, no C-spine tenderness, full range of motion, no CVA tenderness bilaterally Neuro: Oriented X 3.? No motor deficit.? No sensory deficit. CN 2-12 intact Course Reevaluation(s) Reevaluation #1: Patient is noted to have a slightly elevated hemoglobin likely secondary to hemochromatosis. No leukocytosis. No electrolyte abnormalities requiring intervention. Troponin negative. BNP negative. EKG nonischemic, unlikely CHF or ACS. UA clean. Toxicology negative. Dimer slightly elevated. CT of head with no acute findings. Chest CTA and CT of the abdomen and pelvis pending. Time: 20:56 Reevaluation #2: CT of the abdomen and pelvis with no significant abnormality, cause for patient's left upper quadrant pain has not been identified. CTA of the chest with no PE visualized. Patient's blood pressure improved after pain control. Patient appears well, no acute distress. Denies headache, vision changes. Neuro exam nonfocal cerebellar function intact unlikely posterior infarct. Advised patient to follow-up with his check writing machine operator/oncologist in his PCP. At this time I feel comfortable discharge home with PCP and Hematology follow-up. Upon discharge patient no longer having palpitations denies chest pain, shortness of breath, headache, dizziness, abdominal pain improved after morphine. Patient expresses concerns for sexually transmitted infection I advised him to follow up with karen washington. He can give us a gonorrhea and chlamydia by urine however I advised him to get a full panel STD testing elsewhere. Patient asking me if he could potentially have a blood clot in his left upper extremity I explained to him that there is no extremity swelling, neurovascularly intact no evidence signs of clot, patient having pain to that extremity he tells me that he has been having problems with that extremity for months. I advised him to follow-up with his check writing machine operator oncologist and is PCP for this issue as I do not suspect a blood clot in the left arm. Time: 22:04 Medical Decision Making [facility] Narrative Medical decision making narrative: 1850 35 yo m presents w/palpitations, high blood pressure and left upper quadrant pain x1 day. Has been having similar episodes over the past 6 months. Patient gets phlebotomy for hemochromatosis he is due to get phlebotomy within the next day or 2. Physical examination with positive Johnston sign pain with palpation of right upper quadrant, normoactive bowel sounds. Regular rate and rhythm. Lungs clear. Abdomen soft. Neuro exam is nonfocal. Vital signs are stable, patient's blood pressure is noted to be slightly elevated and he appears slightly anxious. Plan at this time is labs, ultrasound of the right upper quadrant, x-ray, EKG, troponin, BNP. Will rule out ACS, pancreatitis, cholecystitis. Medical Records Medical records reviewed: Yes I reviewed the patient's medical records. Lab Data Lab results reviewed: Yes I reviewed the patient's lab results. Result diagrams: 07/21/21 19:36 07/21/21 19:36 Labs: Lab Results 07/21/21 07/21/21 07/21/21 Range/Units 19:36 19:36 19:36 WBC 7.8 (4.8-10.8) X10*3/uL RBC 5.59 (4.60-5.80) X10*6/uL Hgb 18.4 H (14.0-18.0) g/dl Hct 51.6 (42.0-52.0) % MCV 92.3 (80.0-98.0) fL MCH 32.9 (27.0-33.0) pg MCHC 35.7 (31.0-36.0) g/dl RDW 11.6 (11.0-16.0) % Plt Count 281 (160-400) X10*3/uL MPV 9.6 (9.4-12.4) fL Immature Gran % (Auto) 0.3 (0.0-0.4) % Neut % (Auto) 72.1 (45-73) % Lymph % (Auto) 20.1 (20-40) % Bourbon % (Auto) 6.1 (2-11) % Eos % (Auto) 0.9 (0-4) % Baso % (Auto) 0.5 (0-2) % Lymph # (Auto) 1.6 (1.2-4.9) X10*3/uL Bourbon # (Auto) 0.5 (0.1-1.2) X10*3/uL Eos # (Auto) 0.1 (0.0-0.4) X10*3/uL Baso # (Auto) 0.0 (0.0-0.2) X10*3/uL Abs Immat Gran (auto) 0.02 (0.00-0.03) X10*3/uL Absolute Neuts (auto) 5.7 (2.0-8.3) x10*3/uL Absolute Nucleated RBC 0.000 (0.0-0.012) X10*3/uL Nucleated RBC % (auto) 0.0 (0.0-0.2) /100WBC D-Dimer High Sensitivty NG/ML Sodium 140 (135-145) mmol/L Potassium 4.5 (3.3-5.1) mmol/L Chloride 105 (96-108) mmol/L Carbon Dioxide 26 (22-29) mmol/L Anion Gap 14 (12-20) BUN 15 (9-16) mg/dL Creatinine 1.10 (0.5-1.4) mg/dL Estim Creat Clear Calc 109.7 Estimated GFR > 60 Random Glucose 102 (60-115) mg/dL Calcium 10.2 (8.4-10.2) mg/dL Magnesium 2.4 (1.6-2.6) mg/dL Total Bilirubin 0.6 (0.0-1.0) mg/dL AST 30 D (5-37) U/L ALT 42 H (0-40) U/L Alkaline Phosphatase 90 (39-117) U/L Troponin I High Sens < 3.5 (<3.5-35.0) ng/L B-Natriuretic Peptide < 10 (<100) pg/mL Total Protein 8.3 H (6.5-8.0) g/dL Albumin 4.7 (3.5-5.0) g/dL Lipase (8-78) U/L Urine Color Urine Appearance Urine pH (5.0-8.0) Ur Specific Deshler (1.005-1.025) Urine Protein (NEG-TRACE) MG/DL Urine Glucose (UA) (NEG) MG/DL Urine Ketones (NEG) MG/DL Urine Blood (NEG) Urine Nitrite (NEG) Ur Leukocyte Esterase (NEG) Urine Opiates Screen (Not Detect) Urine Fentanyl Screen (Not Detect) Ur Barbiturates Screen (Not Detect) Ur Phencyclidine Scrn (Not Detect) Ur Amphetamines Screen (Not Detect) U Benzodiazepines Scrn (Not Detect) Urine Cocaine Screen (Not Detect) U Marijuana (THC) Screen (Not Detect) 07/21/21 07/21/21 07/21/21 Range/Units 19:36 19:36 19:36 WBC (4.8-10.8) X10*3/uL RBC (4.60-5.80) X10*6/uL Hgb (14.0-18.0) g/dl Hct (42.0-52.0) % MCV (80.0-98.0) fL MCH (27.0-33.0) pg MCHC (31.0-36.0) g/dl RDW (11.0-16.0) % Plt Count (160-400) X10*3/uL MPV (9.4-12.4) fL Immature Gran % (Auto) (0.0-0.4) % Neut % (Auto) (45-73) % Lymph % (Auto) (20-40) % Bourbon % (Auto) (2-11) % Eos % (Auto) (0-4) % Baso % (Auto) (0-2) % Lymph # (Auto) (1.2-4.9) X10*3/uL Bourbon # (Auto) (0.1-1.2) X10*3/uL Eos # (Auto) (0.0-0.4) X10*3/uL Baso # (Auto) (0.0-0.2) X10*3/uL Abs Immat Gran (auto) (0.00-0.03) X10*3/uL Absolute Neuts (auto) (2.0-8.3) x10*3/uL Absolute Nucleated RBC (0.0-0.012) X10*3/uL Nucleated RBC % (auto) (0.0-0.2) /100WBC D-Dimer High Sensitivty NG/ML Sodium (135-145) mmol/L Potassium (3.3-5.1) mmol/L Chloride (96-108) mmol/L Carbon Dioxide (22-29) mmol/L Anion Gap (12-20) BUN (9-16) mg/dL Creatinine (0.5-1.4) mg/dL Estim Creat Clear Calc Estimated GFR Random Glucose (60-115) mg/dL Calcium (8.4-10.2) mg/dL Magnesium (1.6-2.6) mg/dL Total Bilirubin (0.0-1.0) mg/dL AST (5-37) U/L ALT (0-40) U/L Alkaline Phosphatase (39-117) U/L Troponin I High Sens (<3.5-35.0) ng/L B-Natriuretic Peptide (<100) pg/mL Total Protein (6.5-8.0) g/dL Albumin (3.5-5.0) g/dL Lipase 34 (8-78) U/L Urine Color YELLOW Urine Appearance CLEAR Urine pH 6.0 (5.0-8.0) Ur Specific Deshler <= 1.005 (1.005-1.025) Urine Protein NEG (NEG-TRACE) MG/DL Urine Glucose (UA) NEG (NEG) MG/DL Urine Ketones NEG (NEG) MG/DL Urine Blood NEG (NEG) Urine Nitrite NEG (NEG) Ur Leukocyte Esterase NEG (NEG) Urine Opiates Screen Not Detected (Not Detect) Urine Fentanyl Screen Not Detected (Not Detect) Ur Barbiturates Screen Not Detected (Not Detect) Ur Phencyclidine Scrn Not Detected (Not Detect) Ur Amphetamines Screen Not Detected (Not Detect) U Benzodiazepines Scrn Not Detected (Not Detect) Urine Cocaine Screen Not Detected (Not Detect) U Marijuana (THC) Screen Not Detected (Not Detect) 07/21/21 Range/Units 19:36 WBC (4.8-10.8) X10*3/uL RBC (4.60-5.80) X10*6/uL Hgb (14.0-18.0) g/dl Hct (42.0-52.0) % MCV (80.0-98.0) fL MCH (27.0-33.0) pg MCHC (31.0-36.0) g/dl RDW (11.0-16.0) % Plt Count (160-400) X10*3/uL MPV (9.4-12.4) fL Immature Gran % (Auto) (0.0-0.4) % Neut % (Auto) (45-73) % Lymph % (Auto) (20-40) % Bourbon % (Auto) (2-11) % Eos % (Auto) (0-4) % Baso % (Auto) (0-2) % Lymph # (Auto) (1.2-4.9) X10*3/uL Bourbon # (Auto) (0.1-1.2) X10*3/uL Eos # (Auto) (0.0-0.4) X10*3/uL Baso # (Auto) (0.0-0.2) X10*3/uL Abs Immat Gran (auto) (0.00-0.03) X10*3/uL Absolute Neuts (auto) (2.0-8.3) x10*3/uL Absolute Nucleated RBC (0.0-0.012) X10*3/uL Nucleated RBC % (auto) (0.0-0.2) /100WBC D-Dimer High Sensitivty 295 NG/ML Sodium (135-145) mmol/L Potassium (3.3-5.1) mmol/L Chloride (96-108) mmol/L Carbon Dioxide (22-29) mmol/L Anion Gap (12-20) BUN (9-16) mg/dL Creatinine (0.5-1.4) mg/dL Estim Creat Clear Calc Estimated GFR Random Glucose (60-115) mg/dL Calcium (8.4-10.2) mg/dL Magnesium (1.6-2.6) mg/dL Total Bilirubin (0.0-1.0) mg/dL AST (5-37) U/L ALT (0-40) U/L Alkaline Phosphatase (39-117) U/L Troponin I High Sens (<3.5-35.0) ng/L B-Natriuretic Peptide (<100) pg/mL Total Protein (6.5-8.0) g/dL Albumin (3.5-5.0) g/dL Lipase (8-78) U/L Urine Color Urine Appearance Urine pH (5.0-8.0) Ur Specific Deshler (1.005-1.025) Urine Protein (NEG-TRACE) MG/DL Urine Glucose (UA) (NEG) MG/DL Urine Ketones (NEG) MG/DL Urine Blood (NEG) Urine Nitrite (NEG) Ur Leukocyte Esterase (NEG) Urine Opiates Screen (Not Detect) Urine Fentanyl Screen (Not Detect) Ur Barbiturates Screen (Not Detect) Ur Phencyclidine Scrn (Not Detect) Ur Amphetamines Screen (Not Detect) U Benzodiazepines Scrn (Not Detect) Urine Cocaine Screen (Not Detect) U Marijuana (THC) Screen (Not Detect) ECG Data Attestation: I personally reviewed and interpreted this ECG as follows: Prior ECG tracings: available for review Interpretation: Ventricular rate of 80, AL normal, QRS normal, QT/QTC normal. EKG shows normal sinus rhythm no ST elevations or inversions concerning for ischemia. No significant changes when compared to EKG of June 2021. Critical Care Time Critical Care Time Critical Care Time: No Discharge Plan Discharge Clinical Impression: Hypertension, Palpitations, Abdominal pain Patient Disposition: Home, Self-Care Instructions: Heart Palpitations (ED), Abdominal Pain (ED), Hypertension (ED) Additional Instructions: Take your medications as prescribed. If you were prescribed antibiotics today, it is important that you take your medication to their entirety, do not skip any doses, do not finish them early. Follow-up with your primary care provider this week. Please follow-up with your check writing machine operator oncologist as soon as possible. Return to the emergency department with new or worsening symptoms. Such as fevers, chills, chest pain, shortness of breath, nausea, vomiting, dizziness, headache, vision changes, lethargy In case of emergency call 911 Your troponin a cardiac enzyme was normal, your EKG was normal without signs of acute heart attack. BNP a marker for congestive heart failure was also within normal limits. Your D-dimer was slightly elevated however this CTA of your chest did not show any blood clots. Your head CT was normal. In the CT of the abdomen pelvis was also normal. I will send morphine to your pharmacy, please take this only for severe pain. Morphine is a narcotic 2nd cause dependence only take this as needed. Please do not take this while operating any motor vehicles or machinery as this can make you drowsy. Please follow-up with your check writing machine operator and oncologist as well as your PCP as soon as possible. I advised you check your blood pressure Tuesday, Tuesday, Tuesday, write it down ensure this information with your primary care provider. Your blood pressure was noted to be elevated here in the emergency department but improved after your pain was treated. Prescriptions: New morphine 15 mg tablet 15 mg PO BID PRN (Reason: pain) Qty: 6 0RF Rx Instructions: Patient can partially filled this prescription upon request No Action albuterol sulfate [ProAir HFA] 90 mcg/actuation HFA aerosol inhaler 2 puff inhalation Q4-6H PRN (Reason: shortness of breath or wheezing) Qty: 8.5 0RF Eliquis 5 mg Tablet 5 mg PO BID Qty: 74 3RF Rx Instructions: Take 10 mg b.i.d. for 1 week followed by 5 mg b.i.d. aspirin [Adult Aspirin Regimen] 81 mg tablet,delayed release (DR/EC) 324 mg PO DAILY PRN (Reason: tachycardia) 0RF desonide 0.05 % cream topical BID 0RF fluocinolone 0.01 % oil topical TID 0RF lactulose 10 gram/15 mL solution 30 ml PO BID PRN (Reason: constipation) 0RF doxepin 10 mg capsule 10 mg PO BEDTIME PRN0RF Referrals: Kaylie Cardona MD [Primary Care Provider] - 2 days Stand Alone Forms: Work/School Release
[2021-07-21 19:42] LABS: MANUAL DIFF FLAG NO
[2021-07-21 19:43] VITALS: BP 139/95; PULSE 85; RESP 12; O2SAT 96
[2021-07-21 19:44] LABS: Basophils Percent Auto 0.5 % (0-2); Eosinophils Absolute Auto 0.1 X10*3/uL (0.0-0.4); Eosinophils Percent Auto 0.9 % (0-4); Hematocrit 51.6 % (42.0-52.0); Hemoglobin 18.4 g/dl (14.0-18.0); Imm Gran Abs Auto 0.02 X10*3/uL (0.00-0.03); Imm Gran Pct Auto 0.3 % (0.0-0.4); Lymphocytes Absolute Auto 1.6 X10*3/uL (1.2-4.9); Lymphocytes Percent Auto 20.1 % (20-40); Mean Corpuscular HGB Conc 35.7 g/dl (31.0-36.0); Mean Corpuscular Hemoglobin 32.9 pg (27.0-33.0); Mean Corpuscular Volume 92.3 fL (80.0-98.0); Mean Platelet Volume 9.6 fL (9.4-12.4); Monocytes Absolute Auto 0.5 X10*3/uL (0.1-1.2); Monocytes Percent Auto 6.1 % (2-11); Neutrophils Absolute Auto 5.7 x10*3/uL (2.0-8.3); Neutrophils Percent Auto 72.1 % (45-73); Platelet Count 281 X10*3/uL (160-400); Red Blood Count 5.59 X10*6/uL (4.60-5.80); Red Cell Distribution Width 11.6 % (11.0-16.0); White Blood Count 7.8 X10*3/uL (4.8-10.8)
[2021-07-21 19:46] LABS: Appearance Urine CLEAR; Color Urine YELLOW; Glucose Urine UA NEG (NEG); Leukocyte Esterase Urine NEG (NEG); Nitrite Urine NEG (NEG); Specific Gravity - Urine <= 1.005 (1.005-1.025); Urine Blood NEG (NEG); Urine Ketones NEG (NEG); Urine Protein NEG (NEG-TRACE)
--- NOTE | 2021-07-21 19:46 | PC.NURSE ---
pt a&ox3, vss - hypertensive, hx of same. denies any pain at this time - pt refused pain medications. 20G IV placed right forearm, labs drawn, urine sample obtained. CT pending lab results.
[2021-07-21 20:02] LABS: Lipase 34 U/L (8-78)
[2021-07-21 20:03] LABS: D Dimer High Sensitivity 295 NG/ML
[2021-07-21 20:04] LABS: Amphetamine Screen Urine Not Detected (Not Detect); Barbiturates, Urine Not Detected (Not Detect); Benzodiazepines Screen Urine Not Detected (Not Detect); Cannabinoid Screen Urine Not Detected (Not Detect); Cocaine Screen Urine Not Detected (Not Detect); Fentanyl, urine Not Detected (Not Detect); Opiate Screen Urine Not Detected (Not Detect); Phencyclidine Screen Urine Not Detected (Not Detect)
[2021-07-21 20:05] LABS: Alanine Aminotransferase 42 U/L (0-40); Albumin Level 4.7 g/dL (3.5-5.0); Alkaline Phosphatase 90 U/L (39-117); Anion Gap 14 (12-20); Aspartate Amino Transferase 30 U/L (5-37); Bilirubin Total 0.6 mg/dL (0.0-1.0); Blood Urea Nitrogen 15 mg/dL (9-16); Calcium 10.2 mg/dL (8.4-10.2); Carbon Dioxide 26 mmol/L (22-29); Chloride 105 mmol/L (96-108); Creatinine Clr Calc Pharmacy 109.7; Estimated Glomerular Filt Rate > 60; Glucose Random 102 mg/dL (60-115); Magnesium 2.4 mg/dL (1.6-2.6); Potassium 4.5 mmol/L (3.3-5.1); Sodium 140 mmol/L (135-145); Total Protein 8.3 g/dL (6.5-8.0)
[2021-07-21 20:07] LABS: B Type Natriuretic Peptide < 10 pg/mL (<100); Troponin-I High Sensitivity < 3.5 ng/L (<3.5-35.0)
[2021-07-21] MEDS: iohexoL 350 MG/ML 100 ML INFUS..BTL IV (20:31)
[2021-07-21 22:44] VITALS: BP 131/91; PULSE 71; RESP 16; TEMP 37.1; O2SAT 97
[2021-07-21 23:23] LABS: COVID-19 Test Negative (Negative)
[2021-07-22 10:32] LABS: CT PCR NOT DETECTED (Not Detect.); NG PCR NOT DETECTED (Not Detect.)
== END 2021-07-21 23:19 | disposition home or self-care (01) ==
PROVIDERS: Physician Assistant; Emergency Provider Emergency Medicine Emergency Medical Services; PCP Student in an Organized Health Care Education/Training Program
DX: R00.2 Palpitations (principal); I10 Essential (primary) hypertension; R10.9 Unspecified abdominal pain; R51.9 Headache, unspecified; Z20.822 Contact with and (suspected) exposure to COVID-19; Z79.899 Other long term (current) drug therapy
CPT/HCPCS: 36415; 70450; 71045; 71275; 74177; 80053; 80307; 81003; 83690; 83735; 83880; 84484; 85025; 85379; 87491; 87591; 87635; 93005; 96374; 99284; Q9967

== ENCOUNTER → 2021-08-18 14:47 | Outpatient (BNVA) | payer MEDICAID, SELFPAY | PROVIDERS: PCP Student in an Organized Health Care Education/Training Program; Visit Provider Urology | DX: N34.1 Nonspecific urethritis (principal); B96.89 Other specified bacterial agents as the cause of diseases classified elsewhere; N28.1 Cyst of kidney, acquired; E83.119 Hemochromatosis, unspecified | CPT/HCPCS: 99202 ==

== ENCOUNTER 2021-12-02 14:19 | Outpatient (REF) | payer MEDICAID, SELFPAY ==
--- NOTE | ~2021-12-02 | US_ITS ---
EXAMINATION: US THYROID CLINICAL INFORMATION: Hypothyroidism. COMPARISON: Ultrasound thyroid 06/17/2021 and 05/23/2019. US-guided thyroid biopsy 08/06/2019. TECHNIQUE: Linear transducer grayscale and color Doppler examination with attention to the region of the thyroid. FINDINGS: SIZE: Measurements of the thyroid lobes and nodules are given in sagittal, anteroposterior and transverse dimensions respectively. Right Thyroid Lobe: 4.7 x 1.5 x 1.6 cm, volume 5.9 mL. Previously 5.4 x 1.7 x 1.3 cm, volume 5.9 mL. Parenchyma: The gland echotexture is homogeneous. Thyroid vascularity is normal. Left Thyroid Lobe: 5.7 x 0.8 x 1.5 cm, volume 3.6 mL. Previously 5.1 x 0.9 x 1.1 cm, volume 2.7 mL. Parenchyma: The gland echotexture is homogeneous. Thyroid vascularity is normal. Isthmus: 0.3 cm in maximum AP dimension. Previously 0.4 cm. Estimated total number of nodules greater than or equal to 1 cm: 1. Parenting Skills Instructor nodules are described as follows: 1. Location: Right medial. Size: 2.7 x 0.8 x 2.0 cm, volume 2.40 mL. Previously: 2.1 x 1.0 x 2.1 cm, volume 2.2 mL. Nodule characteristics: Composition: Solid (2). Echogenicity: Hypoechoic (2). Shape: Not taller than wide (0). Margins: Smooth (0). Echogenic Foci: None (0). ACR TI-RADS total points: 4 Previous: 3 ACR TI-RADS category: 4 Previous: 3 Significant change in size (>/= 20% in 2 dimensions and minimal increase of 2 mm or 50% or greater increase in volume): No Change in features: Yes Change in ACR TI-RADS risk category: Yes 2. Location: Right medial inferior. Size: 0.6 x 0.4 x 0.4 cm, volume 0.05 mL. Previously: 0.5 x 0.4 x 0.4 cm, volume 0.05 mL. Nodule characteristics: Composition: Spongiform (0). Echogenicity: Anechoic (0). Shape: Not taller than wide (0). Margins: Smooth (0). Echogenic Foci: None (0). ACR TI-RADS total points: 0 Previous: 0 ACR TI-RADS category: 1 Previous: 1 Significant change in size (>/= 20% in 2 dimensions and minimal increase of 2 mm or 50% or greater increase in volume): No Change in features: Yes Change in ACR TI-RADS risk category: Yes NODES: At right cervical level II, a 4.0 x 0.7 x 1.9 cm reniform lymph node is seen. US/US thyroid IMPRESSION: 1. Small bilateral thyroid nodules are seen, as detailed. 2. A nonspecific, mildly enlarged right cervical lymph node is seen. This should be managed on a clinical basis. If of continued clinical concern, recommend repeat ultrasound examination 3-6 months to ensure regression/resolution. ACR TI-RADS RECOMMENDATION REFERENCE: Ultrasound-guided fine-needle aspiration, followup ultrasound, no further follow up. * TR1 (0 point) and TR 2 (2 points): No FNA or follow up. * TR3 (3 points): FNA if more than or equal to 2.5 cm in maximum dimension, followup ultrasound in 1, 3 and 5 years if 1.5 to 2.4 cm in maximum dimension. * TR4 (4-6 points): FNA if more than or equal to 1.5 cm in maximum dimension, followup ultrasound in 1, 2, 3 and 5 years if 1 to 1.4 cm in maximum dimension. * TR5 (more than or equal to 7 points): FNA if more than or equal to 1 cm in maximum dimension, followup ultrasound every year for 5 years if 0.5 to 0.9 cm in maximum dimension. * TR3, TR4 or TR5 nodules that are below the size threshold for followup receive no follow up.
== END 2021-12-02 14:20 | disposition home or self-care (01) ==
LOC: HO.HMGCX 14:19
PROVIDERS: PCP Student in an Organized Health Care Education/Training Program; Visit Provider Student in an Organized Health Care Education/Training Program
DX: E03.9 Hypothyroidism, unspecified (principal)
CPT/HCPCS: 76536

== ENCOUNTER → 2021-12-29 10:20 | Outpatient (BNVA) | payer MEDICAID, SELFPAY | PROVIDERS: PCP Student in an Organized Health Care Education/Training Program; Visit Provider Internal Medicine Endocrinology, Diabetes & Metabolism | DX: E04.1 Nontoxic single thyroid nodule (principal) | CPT/HCPCS: 99212 ==

== ENCOUNTER → 2022-01-21 13:43 | Outpatient (BNVA) | payer MEDICAID, SELFPAY | PROVIDERS: PCP Student in an Organized Health Care Education/Training Program; Referring Provider Student in an Organized Health Care Education/Training Program; Visit Provider Surgery | DX: K64.5 Perianal venous thrombosis (principal) | CPT/HCPCS: 46600; 99202 ==

== ENCOUNTER 2022-05-02 20:30 | Emergency (ER) | payer MEDICAID, SELFPAY ==
--- NOTE | 2022-05-02 | ECG_ITS ---
Test Reason : CHEST PAIN Blood Pressure : / mmHG Vent. Rate : 084 BPM Atrial Rate : 084 BPM P-R Int : 132 ms QRS Dur : 086 ms QT Int : 342 ms P-R-T Axes : 057 055 045 degrees QTc Int : 404 ms Normal sinus rhythm with sinus arrhythmia Normal ECG When compared with ECG of 21-JUL-2021 19:05, No significant change was found Referred By: Berkley Baeza Electronically Signed By:TERRY FRANK MD
[2022-05-02 20:34] VITALS: BP 175/106; PULSE 100; O2SAT 98
[2022-05-02 20:57] VITALS: BP 134/83; PULSE 82; RESP 16; TEMP 36.9; O2SAT 97; BMI 28.5
[2022-05-02 21:23] LABS: MANUAL DIFF FLAG NO
[2022-05-02 21:24] LABS: Basophils Absolute Auto 0.1 X10*3/uL (0.0-0.2); Basophils Percent Auto 0.8 % (0-2); Eosinophils Absolute Auto 0.1 X10*3/uL (0.0-0.4); Eosinophils Percent Auto 1.5 % (0-4); Hematocrit 51.7 % (42.0-52.0); Hemoglobin 18.7 g/dl (14.0-18.0); Imm Gran Abs Auto 0.01 X10*3/uL (0.00-0.03); Imm Gran Pct Auto 0.1 % (0.0-0.4); Lymphocytes Absolute Auto 1.9 X10*3/uL (1.2-4.9); Lymphocytes Percent Auto 22.1 % (20-40); Mean Corpuscular HGB Conc 36.2 g/dl (31.0-36.0); Mean Corpuscular Hemoglobin 32.2 pg (27.0-33.0); Mean Platelet Volume 9.2 fL (9.4-12.4); Monocytes Absolute Auto 0.5 X10*3/uL (0.1-1.2); Monocytes Percent Auto 6.1 % (2-11); Neutrophils Absolute Auto 6.1 x10*3/uL (2.0-8.3); Neutrophils Percent Auto 69.4 % (45-73); Platelet Count 258 X10*3/uL (160-400); Red Blood Count 5.81 X10*6/uL (4.60-5.80); Red Cell Distribution Width 11.8 % (11.0-16.0); White Blood Count 8.8 X10*3/uL (4.8-10.8)
--- NOTE | 2022-05-02 21:44 | ED_ITS ---
HPI - Chest Pain General Chief Complaint: Chest Pain Stated Complaint: Lt side CP Time Seen by Provider: 05/02/22 21:00 Source: patient Mode of arrival: EMS History of Present Illness HPI narrative: 36-year-old male with history of hemochromatosis presents via EMS with concerns regarding intermittent sharp left-sided chest pain that is not been associated with dizziness/diaphoresis/shortness of breath, nausea and states that often times this type of pain is associated with gas pain and started approximately 20:00 this evening and says that since he has passed gas he is no longer having symptoms. He appears calm and does have some concerns with his blood pressure although he states that it has completely resolved after passing gas as well. He denies any other fever, chills, GI or symptoms. Related Data Home Medications Medication Instructions Recorded Confirmed doxepin 10 mg capsule 10 mg PO BEDTIME PRN Insomnia 06/30/21 01/21/22 lactulose 10 gram/15 mL oral 30 ml PO BID PRN constipation 07/09/21 01/21/22 solution omeprazole 20 mg capsule,delayed 20 mg PO DAILY 12/29/21 01/21/22 release Previous Rx's Medication Instructions Recorded albuterol sulfate 90 mcg/actuation 2 puff inhalation Q4-6H PRN 11/03/20 aerosol inhaler (ProAir HFA) shortness of breath or wheezing #8.5 grams Allergies Allergy/AdvReac Type Severity Reaction Status Date / Time metronidazole [From Flagyl] Allergy Unknown Nausea, Verified 01/21/22 13:52 sweats, Diarrhea Review of Systems Review of Systems: Pertinent positives and negatives as stated in HPI PMFSH Past Medical History Source: nursing notes reviewed Medical History Anxiety Autosomal dominant hereditary hemochromatosis Dizziness HTN (hypertension) Mild intermittent allergic 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 Mood disorder Paresthesia Thrombosed external hemorrhoid Thyroid nodule Surgical History Hx of wisdom tooth extraction S/P fine needle aspiration Family History Family History Father CLL (chronic lymphocytic leukemia) Diabetes Paternal Grandfather Diabetes Maternal Grandmother H/O heart bypass surgery Mother Drug abuse Social History Social History Household Members: None Housing: Apartment Are you a primary family member caretaker to a significant other at home: No Do you presently have visiting nurse or other home services: No Alcohol intake: never Patient Tobacco Use Status: Never used Tobacco Smoked in Last 30 Days: No Use of substances other than those prescribed or required for medical reasons: No Advance Directives: No Advance Directives Information Provided: No service: No Current occupational status: unemployed Physical Exam Vital Signs: Vital Signs: Last Vital Signs Temp 98.5 F 05/02/22 20:57 Pulse 82 05/02/22 20:57 Resp 16 05/02/22 20:57 BP 134/83 05/02/22 20:57 Pulse Ox 97 05/02/22 20:57 O2 Del Method 05/02/22 20:57 BMI result Body Mass Index 28.5 VITAL SIGNS: Reviewed. GENERAL: Well developed, well nourished, in no acute distress. HEAD: Normocephalic/atraumatic EYES: PERRLA, EOMI EARS: Ext canals without abnormality LUNGS: Normal breath sounds. No adventitious sounds or accessory muscle use. SpO2<97> CARDIOVASCULAR: Regular rate and rhythm without noted murmurs, no JVD or lower extremity edema. ABDOMEN: Soft, non-tender, non-distended with bowel sounds. MUSCULOSKELETAL: No tenderness, deformities, or effusions noted on gross inspection. EXTREMITIES: No cyanosis, clubbing or edema. SKIN: Inspection of the skin reveals no rashes NEUROLOGIC: Alert and oriented x 4. Strength and sensation to light touch were grossly intact x 4. Medical Decision Making Medical Decision Making [facility] Narrative: 36-year-old male history and clinical presentation of what appears to be atypical chest pain and doubt pneumonia, PE, cardiac ischemia but will obtain basic lab work even though patient is currently asymptomatic. Patient appears calm and comfortable at this time. Reviewed all investigations and my interpretation is that this is likely transient, benign pain as there is no evidence pneumonia, infection, cardiac ischemia and all results were discussed with patient at bedside and he was reassured and discharged home in stable condition with instructions to follow-up with his scheduled appointments. Differential Diagnosis Differential Diagnoses: The differential diagnosis associated with the presentation includes Please see the discussion above Lab Data [facility] Lab Attestation statement: I reviewed the patient's lab results. Please see the discussion above 05/02/22 21:18 05/02/22 21:18 Labs: Lab Results 05/02/22 05/02/22 05/02/22 Range/Units 21:18 21:18 21:18 WBC 8.8 (4.8-10.8) X10*3/uL RBC 5.81 H (4.60-5.80) X10*6/uL Hgb 18.7 H (14.0-18.0) g/dl Hct 51.7 (42.0-52.0) % MCV 89.0 (80.0-98.0) fL MCH 32.2 (27.0-33.0) pg MCHC 36.2 H (31.0-36.0) g/dl RDW 11.8 (11.0-16.0) % Plt Count 258 (160-400) X10*3/uL MPV 9.2 L (9.4-12.4) fL Immature Gran % (Auto) 0.1 (0.0-0.4) % Neut % (Auto) 69.4 (45-73) % Lymph % (Auto) 22.1 (20-40) % [place] % (Auto) 6.1 (2-11) % Eos % (Auto) 1.5 (0-4) % Baso % (Auto) 0.8 (0-2) % Lymph # (Auto) 1.9 (1.2-4.9) X10*3/uL [place] # (Auto) 0.5 (0.1-1.2) X10*3/uL Eos # (Auto) 0.1 (0.0-0.4) X10*3/uL Baso # (Auto) 0.1 (0.0-0.2) X10*3/uL Abs Immat Gran (auto) 0.01 (0.00-0.03) X10*3/uL Absolute Neuts (auto) 6.1 (2.0-8.3) x10*3/uL Absolute Nucleated RBC 0.000 (0.0-0.012) X10*3/uL Nucleated RBC % (auto) 0.0 (0.0-0.2) /100WBC Sodium 141 (135-145) mmol/L Potassium 4.2 (3.3-5.1) mmol/L Chloride 103 (96-108) mmol/L Carbon Dioxide 27 (22-29) mmol/L Anion Gap 15 (12-20) BUN 12 (9-16) mg/dL Creatinine 1.04 (0.5-1.4) mg/dL Estim Creat Clear Calc 114.4 Estimated GFR > 60 Random Glucose 96 (60-115) mg/dL Calcium 9.7 (8.4-10.2) mg/dL Total Bilirubin 0.8 (0.0-1.0) mg/dL AST 20 (5-37) U/L ALT 31 (0-40) U/L Alkaline Phosphatase 81 (39-117) U/L Troponin I High Sens < 3.5 (<3.5-35.0) ng/L Total Protein 7.3 (6.5-8.0) g/dL Albumin 4.4 (3.5-5.0) g/dL Lipase 35 (8-78) U/L Independent Interpretation I performed an independent interpretation of an: EKG Interpretation: Normal sinus rhythm, HR-84, no STEMI, DE/QRS/QTC is within normal limits. External Record Review External record reviewed: Office record, Outpatient record and Prior outpatient labs Chronic Conditions Patient?s care impacted by: Other Hemochromatosis Critical Care Time Critical Care Time Critical Care Time: Yes Total Critical Care Time: 30 Attestation: I personally attest to this time spent taking care of the patient. Discharge Plan Discharge Clinical Impression: Atypical chest pain Patient Disposition: Home, Self-Care Instructions: Chest Pain (ED) Additional Instructions: 1. Please resume all home medications as prescribed. 2. Please keep all scheduled appointments with your physicians. 3. Please follow-up with your primary care provider in the next 1-2 days for re- evaluation further outpatient. Return to the ER for any worsening symptoms. Prescriptions: No Action albuterol sulfate [ProAir HFA] 90 mcg/actuation HFA aerosol inhaler 2 puff inhalation Q4-6H PRN (Reason: shortness of breath or wheezing) Qty: 8.5 0RF omeprazole 20 mg capsule,delayed release(DR/EC) 20 mg PO DAILY lactulose 10 gram/15 mL solution 30 ml PO BID PRN (Reason: constipation) doxepin 10 mg capsule 10 mg PO BEDTIME PRN (Reason: Insomnia) Referrals: Kaylie Cardona MD [Primary Care Provider] -
[2022-05-02 21:45] LABS: Alanine Aminotransferase 31 U/L (0-40); Albumin Level 4.4 g/dL (3.5-5.0); Alkaline Phosphatase 81 U/L (39-117); Anion Gap 15 (12-20); Aspartate Amino Transferase 20 U/L (5-37); Bilirubin Total 0.8 mg/dL (0.0-1.0); Blood Urea Nitrogen 12 mg/dL (9-16); Calcium 9.7 mg/dL (8.4-10.2); Carbon Dioxide 27 mmol/L (22-29); Chloride 103 mmol/L (96-108); Creatinine Clr Calc Pharmacy 114.4; Estimated Glomerular Filt Rate > 60; Glucose Random 96 mg/dL (60-115); Lipase 35 U/L (8-78); Potassium 4.2 mmol/L (3.3-5.1); Sodium 141 mmol/L (135-145); Total Protein 7.3 g/dL (6.5-8.0)
[2022-05-02 21:54] LABS: Troponin-I High Sensitivity < 3.5 ng/L (<3.5-35.0)
== END 2022-05-02 22:46 | disposition home or self-care (01) ==
PROVIDERS: Emergency Provider Student in an Organized Health Care Education/Training Program; PCP Student in an Organized Health Care Education/Training Program
DX: R07.89 Other chest pain (principal); Z79.899 Other long term (current) drug therapy
CPT/HCPCS: 36415; 80053; 83690; 84484; 85025; 93005; 99285

== ENCOUNTER 2022-05-25 03:34 | Emergency (ER) | payer MEDICAID, SELFPAY ==
--- NOTE | ~2022-05-25 | US_ITS ---
EXAMINATION: US VENOUS WITH DOPPLER UPPER EXTREMITY, LEFT CLINICAL INFORMATION: Right upper extremity pain and swelling. COMPARISON: None available. TECHNIQUE: Ultrasound of the upper extremity is performed using compression sonography and color and pulse Doppler flow with assessment of augmentation of flow. There is also imaging and Doppler assessment of the jugular and subclavian veins. Spectral analysis with color-flow imaging is performed. FINDINGS: Respiratory variation, normal compression, and augmented flow are noted throughout the upper extremity including the axillary, brachial, cubital, and radial and ulnar veins. There is normal flow in the internal jugular and subclavian veins. There is no visible deep or superficial thrombophlebitis. If the patient's symptoms progress, a followup ultrasound in 5 -7 days might be of value to exclude proximal propagation from a nonvisualized distal arm vein. US/US venous duplex UE LT IMPRESSION: No evidence for deep venous thrombosis in the visualized veins of the left upper extremity.
[2022-05-25 03:53] VITALS: BP 140/90; PULSE 77; O2SAT 99
[2022-05-25 03:56] VITALS: BP 140/90; PULSE 77; RESP 16; TEMP 36.8; O2SAT 98; BMI 27.3
[2022-05-25 06:00] VITALS: BP 127/89; PULSE 71; RESP 16; TEMP 36.9; O2SAT 98
--- NOTE | 2022-05-25 08:05 | ED.EXTPRO ---
HPI - Extremity Problem General Chief complaint: Extremity Injury, Upper Stated complaint: L ARM PAIN,NO INJURY PER EMS Time Seen by Provider: 05/25/22 08:00 Source: patient Mode of arrival: ambulatory Limitations: no limitations History of Present Illness HPI Narrative: 36 yo male with history of hemochromatosis currently being worked up for TOS ([place]) here with complaints of years of left arm pain which radiates down the left arm and is described as aching, cramping with bulging veins and intermittent numbness/tingling. Patient feels numbness/tingling over the palmar aspect of left hand and reports this is associated with his pain. Pain worsened with palpation of the arm, movement of the arm. No associated chest pain, shortness of breath, fever, leg swelling/leg pain. Patient reports he had phlebotomy performed on [facility] on 05/14. Since then he feels his symptoms in his LEFT arm are worse. He saw a Dr Tavares in [place] this month and has plans for a shoulder MRI and cervical x-ray 05/31 as part of his work-up for TOS. He reports over the last 48 hrs his symptoms have worsened prompting his visit today. He does report a history of superficial DVT in LLE one year ago secondary to COVID per patient. 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 Patient report he then had a repeat US which showed resolution of the clot Related Data Home Medications Medication Instructions Recorded Confirmed doxepin 10 mg capsule 10 mg PO BEDTIME PRN Insomnia 06/30/21 01/21/22 lactulose 10 gram/15 mL oral 30 ml PO BID PRN constipation 07/09/21 01/21/22 solution omeprazole 20 mg capsule,delayed 20 mg PO DAILY 12/29/21 01/21/22 release Previous Rx's Medication Instructions Recorded albuterol sulfate 90 mcg/actuation 2 puff inhalation Q4-6H PRN 11/03/20 aerosol inhaler (ProAir HFA) shortness of breath or wheezing #8.5 grams Allergies Allergy/AdvReac Type Severity Reaction Status Date / Time metronidazole [From Flagyl] Allergy Unknown Nausea, Verified 01/21/22 13:52 sweats, Diarrhea Review of Systems Review of Systems: Yes all other systems are reviewed and are negative Constitutional: Constitutional: Reports no additional constitutional complaints, Denies body ache(s), Denies chills, Denies fever(s), Denies headache(s) and Denies weakness Eyes: Eyes: Reports no additional eye complaints and Denies change in vision ENT: Reports system reviewed and no additional complaints, except as documented, Denies dizziness, Denies headache(s), Denies nasal congestion, Denies nasal discharge and Denies neck pain Cardiovascular: Cardiovascular: Reports no additional cardiovascular complaints, Denies chest pain, Denies leg edema and Denies dyspnea Respiratory: Respiratory: Reports no additional respiratory complaints, Denies cough and Denies dyspnea Gastrointestinal: Gastrointestinal: Reports no additional gastrointestinal complaints, Denies abdominal pain, Denies diarrhea, Denies nausea and Denies vomiting Genitourinary: Genitourinary: Denies urinary incontinence Musculoskeletal: Musculoskeletal: Reports no additional musculoskeletal complaints, Denies back pain, Reports arthralgias, Denies joint swelling, Denies neck pain, Reports numbness, Reports radiating pain into limb and Reports tingling Integumentary/Breasts: Skin/Breast: Reports system reviewed and no additional complaints, except as docu and Denies rash Neurologic: Reports system reviewed and no additional complaints, except as documented, Denies Abnormal speech present, Denies dizziness, Denies headache(s), Reports numbness, Reports tingling and Denies weakness PMFSH Past Medical History Attestation statement: The following information was validated with the patient. Source: old records reviewed and nursing notes reviewed Medical History Anxiety Autosomal dominant hereditary hemochromatosis Dizziness HTN (hypertension) Mild intermittent allergic 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 Mood disorder Paresthesia Thrombosed external hemorrhoid Thyroid nodule Surgical History Hx of wisdom tooth extraction S/P fine needle aspiration Family History Family History Father CLL (chronic lymphocytic leukemia) Diabetes Paternal Grandfather Diabetes Maternal Grandmother H/O heart bypass surgery Mother Drug abuse Social History Social History Household Members: None Housing: Apartment Are you a primary family day care provider to a significant other at home: No Do you presently have visiting nurse or other home services: No Alcohol intake: never Patient Tobacco Use Status: Never used Tobacco Smoked in Last 30 Days: No Use of substances other than those prescribed or required for medical reasons: No Advance Directives: No Advance Directives Information Provided: Yes service: No Current occupational status: unemployed Physical Exam Vital Signs: Vital Signs: Last Vital Signs Temp 98.5 F 05/25/22 06:00 Pulse 71 05/25/22 06:00 Resp 16 05/25/22 06:00 BP 127/89 05/25/22 06:00 Pulse Ox 98 05/25/22 06:00 O2 Del Method 05/25/22 06:00 BMI result Body Mass Index 27.3 Const: General: cooperative, healthy appearing, comfortable and no acute distress Orientation/consciousness: patient oriented x3 Limitations: no limitations HEENT: Head: Yes normal to inspection Ears: hearing grossly normal bilaterally General nose exam: Normal external nose present Face and sinus: Yes normal facial exam Mouth: Normal oral and palatal mucosa present Throat: Yes posterior oropharynx normal Eyes: General: appearance normal, both eyes and all related structures Pupils: Equal, round and reactive pupils present Neck: Other: TTP to left trapezius and posterior left shoulder +spurlings test NO relief with shoulder abduction test No midline neck tenderness/step offs or deformities Neck: Yes normal visual inspection, Yes full ROM, Yes no lymphadenopathy and Yes no meningeal signs Chest: Chest palpation & inspection: normal inspection of the chest Resp: Effort & Inspection: normal respiratory effort Auscultation: clear to auscultation bilaterally Cardio: Rate: regular rate Rhythm: regular rhythm Peripheral pulses: Peripheral pulses 2+ throughout GI: Inspection: Yes normal to inspection Palpation (GI): Soft to palpation and nontender Auscultation: normal bowel sounds Back/Spine/Pelvis: Thoracic/Lumbar Spine: thoracic and lumbar spine normal to inspection Skin: General skin exam: no rashes or lesions noted Neuro: General: patient oriented x3, moves all extremities, no meningeal signs, no focal motor deficits and normal sensation to monofilament Cranial nerves: Yes CN's II-XII intact bilaterally, Yes Equal, round and reactive pupils present, Yes Bilaterally intact EOM present, Yes Nystagmus not present, Yes Normal facial strength present and Yes Midline tongue present Cognition (Neuro): normal cognition Speech: No Abnormal speech present Gait exam (Neuro): Normal gait present Motor exam (neuro): 5/5 motor strength present throughout Sensory Exam: Normal double simultaneous stimulation for sensation Deep tendon reflexes (DTR's): Rt Biceps (C5, C6): 2+, Left biceps reflex intensity grade: 2+, Right brachioradialis reflex intensity grade: 2+ and Left brachioradialis reflex intensity grade: 2+ Extrem: Other: Left upper arm normal in appearance. 2+ radial/ulnar pulses LUE General: Yes normal to inspection, Yes no pedal edema and Yes no calf tenderness Course Course Course Narrative: Ultrasound is negative for DVT. Patient has follow-up plan outpatient for his continued workup for thoracic outlet syndrome. Reviewed worrisome signs and symptoms of when to return to the emergency room. Comfortable plan for discharge home. Medical Decision Making Medical Decision Making MDM Narrative: 36 yo male here with complaints of years of left upper extremity pain with intermittent numbness/tingling worsened with movement, palpation which patient feels was worsened with phlebotomy from his [facility] on 05/14 and is currently being worked up by a provider in [place] for TOS. Patient with remote history of DVT which she reports was related to having COVID but did not take his anticoagulation with reported repeat ultrasound which is unremarkable. On exam patient with some TTP over the left upper biceps area with no appreciable swelling. Pain is worsened with Spurling's test but is not improved with shoulder abduction. Normal neuro exam. No appreciable erythema, swelling, sensation loss. May be related to underlying thoracic outlet syndrome. Less likely cord compression, cervical radiculopathy, rotator cuff injury. Considered upper extremity DVT so will check ultrasound. Offered labs to patient but he declined these as he had recent outpatient labs. Differential Diagnosis Differential Diagnoses: The differential diagnosis associated with the presentation includes see above Independent Interpretation I performed an independent interpretation of an: Ultrasound Interpretation: I independently reviewed the ultrasound and agree with radiologist's report Radiology Impression Discussion of test interpretation with radiology: I have reviewed the radiologist's reading. Discharge Plan Discharge Clinical Impression: Arm pain, left Patient Disposition: Home, Self-Care Instructions: Arm Pain (ED) Additional Instructions: Your ultrasound shows no signs of blood clot Please continue to follow-up with your outpatient testing Follow-up with your primary care doctor Prescriptions: No Action albuterol sulfate [ProAir HFA] 90 mcg/actuation HFA aerosol inhaler 2 puff inhalation Q4-6H PRN (Reason: shortness of breath or wheezing) Qty: 8.5 0RF omeprazole 20 mg capsule,delayed release(DR/EC) 20 mg PO DAILY lactulose 10 gram/15 mL solution 30 ml PO BID PRN (Reason: constipation) doxepin 10 mg capsule 10 mg PO BEDTIME PRN (Reason: Insomnia) Referrals: [facility] [Primary Care Provider] - 1 week Discharge Date/Time: 05/25/22 10:51
== END 2022-05-25 10:51 | disposition home or self-care (01) ==
PROVIDERS: Emergency Provider Emergency Medicine
DX: M79.602 Pain in left arm (principal); R60.0 Localized edema
CPT/HCPCS: 93971; 99284

== ENCOUNTER 2022-05-25 12:39 | Outpatient (REF) | payer MEDICAID, SELFPAY ==
--- NOTE | ~2022-05-25 | XR_ITS ---
EXAMINATION: XR CERVICAL SPINE CLINICAL INFORMATION: M54.2 neck pain COMPARISON: CT cervical spine 05/19/2021 TECHNIQUE: Cervical spine is imaged in 5 views. FINDINGS: There is straightening and mild reversal cervical lordosis less than that of prior exam 05/19/2021. There is no cervical vertebral compression, destructive process, erosive changes, or prevertebral soft tissue swelling. The odontoid appears intact. There are mild degenerative disc changes again seen at C5-C6 with borderline disc narrowing and mild anterior and anterior and borderline right foraminal spurring. No perched facet. Incidental focal nuchal ligament ossification again noted C6-C7. XR/XR cervical spine 5V IMPRESSION: -Straightening and mild reversal cervical lordosis less than prior exam 05/19/2021. -Mild degenerative disc changes C5-C6. -No vertebral compression, spondylolisthesis, or prevertebral soft tissue swelling.
== END 2022-05-25 12:40 | disposition home or self-care (01) ==
LOC: HO.HMGCX 12:39
PROVIDERS: PCP Student in an Organized Health Care Education/Training Program; Visit Provider Student in an Organized Health Care Education/Training Program
DX: M54.2 Cervicalgia (principal)
CPT/HCPCS: 72050

== ENCOUNTER → 2022-05-28 13:12 | Outpatient (BNVA) | payer MEDICAID, SELFPAY | PROVIDERS: PCP Student in an Organized Health Care Education/Training Program; Visit Provider Urology | DX: N28.1 Cyst of kidney, acquired (principal); N52.9 Male erectile dysfunction, unspecified; E83.119 Hemochromatosis, unspecified | CPT/HCPCS: 99212 ==

== ENCOUNTER 2022-06-08 11:46 | Outpatient (REF) | payer MEDICAID, SELFPAY ==
--- NOTE | ~2022-06-08 | US_ITS ---
EXAMINATION: US VENOUS ULTRASOUND WITH DOPPLER LOWER EXTREMITY, BILATERAL CLINICAL INFORMATION: Bilateral leg pain. COMPARISON: None available. TECHNIQUE: Ultrasound of the deep veins is performed from the hip to the calf with compression sonography and color and pulse Doppler assessment. Spectral analysis with color-flow imaging is performed. FINDINGS: RIGHT: There is normal venous compression and respiratory variation and augmented flow. The visualized common femoral vein, superficial femoral vein, profunda femoral vein, popliteal vein, and the trifurcation region shows no evidence of deep venous thrombosis. There is no significant popliteal fossa cyst. LEFT: There is normal venous compression and respiratory variation and augmented flow. The visualized common femoral vein, superficial femoral vein, profunda femoral vein, popliteal vein, and the trifurcation region shows no evidence of deep venous thrombosis. There is no significant popliteal fossa cyst. If the patient's symptoms persist, followup ultrasound in 5 days 7 days might be of value to exclude proximal propagation from a non-visualized calf vein. US/US venous duplex LE BI IMPRESSION: No DVT demonstrated in the bilateral lower extremity.
== END 2022-06-08 11:47 | disposition home or self-care (01) ==
LOC: HO.US 11:46
PROVIDERS: PCP Student in an Organized Health Care Education/Training Program; Visit Provider Emergency Medicine
DX: M79.661 Pain in right lower leg (principal); M79.662 Pain in left lower leg
CPT/HCPCS: 93970

== ENCOUNTER 2022-06-15 02:33 | Emergency (ER) | payer MEDICAID, SELFPAY ==
--- NOTE | ~2022-06-15 | US_ITS ---
EXAMINATION: US ABDOMEN LIMITED CLINICAL INFORMATION: Right upper quadrant pain for 2 days. COMPARISON: CT abdomen/pelvis dated 07/21/2021 TECHNIQUE: Real-time imaging of the right upper quadrant abdominal viscera. FINDINGS: PANCREAS: Visualized portions unremarkable; tail obscured by interposed bowel gas. LIVER: Normal. The liver is normal in size. The liver contour is normal. Parenchymal echogenicity is normal. No focal hepatic lesion. There is no intrahepatic biliary duct dilatation seen. GALLBLADDER: Contains minimal sludge. No gallbladder wall thickening or pericholecystic fluid/inflammatory change. Sonographic Johnston sign is positive. COMMON BILE DUCT: Normal in caliber measuring 0.2 cm in diameter. RIGHT KIDNEY: Normal. No hydronephrosis. No renal calculi. There is a 3.2 cm simple cyst interpolar cortex. No follow-up imaging recommended. The kidney measures 11.6 cm in maximum dimension. FREE FLUID: None. US/US abdomen limited IMPRESSION: Minimal gallbladder sludge. No sonographic evidence of cholecystitis.
[2022-06-15 02:40] VITALS: BP 128/78; BP 135/92; PULSE 71; PULSE 78; RESP 17; TEMP 36.9; O2SAT 96; O2SAT 97; BMI 28.5
--- NOTE | 2022-06-15 02:40 | ED_ITS ---
HPI - Abdominal Pain General Chief Complaint: Abdominal Pain Stated Complaint: abd pain Time Seen by Provider: 06/15/22 02:40 Source: patient Mode of arrival: EMS Limitations: no limitations History of Present Illness HPI narrative: Patient's history of hemochromatosis complaining of pain in right upper abdomen with nausea for last 3 days no diarrhea no urinary complaints patient never had similar pain in the past had previous CT scan in 2021 which was negative Related Data Allergies Allergy/AdvReac Type Severity Reaction Status Date / Time metronidazole [From Flagyl] Allergy Unknown Nausea, Verified 05/28/22 13:24 sweats, Diarrhea Review of Systems Review of Systems Yes all other systems are reviewed and are negative PMFSH Past Medical History Medical History Anxiety Autosomal dominant hereditary hemochromatosis Dizziness HTN (hypertension) Mild intermittent allergic 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 Mood disorder Paresthesia Thrombosed external hemorrhoid Thyroid nodule Surgical History Hx of wisdom tooth extraction S/P fine needle aspiration Family History Family History Father CLL (chronic lymphocytic leukemia) Diabetes Paternal Grandfather Diabetes Maternal Grandmother H/O heart bypass surgery Mother Drug abuse Social History Social History Household Members: None Housing: Apartment Are you a primary career coach to a significant other at home: No Do you presently have visiting nurse or other home services: No Alcohol intake: never Patient Tobacco Use Status: Never used Tobacco Smoked in Last 30 Days: No Use of substances other than those prescribed or required for medical reasons: No Advance Directives: No Advance Directives Information Provided: No service: No Current occupational status: unemployed Physical Exam ED Vital Signs: Vital Signs - 24 hr 06/15/22 02:40 06/15/22 04:02 Temperature 98.5 F 98.5 F Pulse Rate 78 66 Respiratory Rate 17 15 Blood Pressure 135/92 H 126/91 H Pulse Oximetry 96 96 Oxygen Delivery Method Room Air Room Air BMI result Body Mass Index 28.5 Appearance: Alert. Oriented X3. No acute distress. Eyes: No icterus or pallor ENT: Pharynx normal. Oral Mucosa moist Neck: Normal inspection. Neck supple. CVS: Normal heart rate and rhythm. Pulses normal. Respiratory: No respiratory distress. Equal air entry bilateral, no wheezing/rales/rhonchi Abdomen: Soft mild tenderness right upper quadrant no rebound tenderness or guarding Bowel sounds are present, no mass palpable, no CVA tenderness Skin: Skin warm and dry. Normal skin color. Normal skin turgor. Extremities: No lower extremity edema. No calf tenderness Neuro: Oriented X 3. No motor deficit. Medical Decision Making Medical Decision Making [facility] Narrative: Patient with mild right upper quadrant pain labs are stable ultrasound showed sludge in the gallbladder likely the cause for the pain patient advised to avoid fried food and follow up with surgeon as needed Lab Data [facility] Lab Attestation statement: I reviewed the patient's lab results. 06/15/22 02:51 06/15/22 02:51 Labs: Lab Results 06/15/22 06/15/22 06/15/22 Range/Units 02:51 02:51 03:21 WBC 6.4 (4.8-10.8) X10*3/uL RBC 5.39 (4.60-5.80) X10*6/uL Hgb 17.3 (14.0-18.0) g/dl Hct 48.3 (42.0-52.0) % MCV 89.6 (80.0-98.0) fL MCH 32.1 (27.0-33.0) pg MCHC 35.8 (31.0-36.0) g/dl RDW 11.8 (11.0-16.0) % Plt Count 240 (160-400) X10*3/uL MPV 9.6 (9.4-12.4) fL Absolute Nucleated RBC 0.000 (0.0-0.012) X10*3/uL Nucleated RBC % (auto) 0.0 (0.0-0.2) /100WBC Sodium 140 (135-145) mmol/L Potassium 4.1 (3.3-5.1) mmol/L Chloride 104 (96-108) mmol/L Carbon Dioxide 27 (22-29) mmol/L Anion Gap 13 (12-20) BUN 12 (9-16) mg/dL Creatinine 1.03 (0.5-1.4) mg/dL Estim Creat Clear Calc 115.5 Estimated GFR > 60 Random Glucose 104 (60-115) mg/dL Calcium 9.6 (8.4-10.2) mg/dL Total Bilirubin 0.6 (0.0-1.0) mg/dL AST 21 (5-37) U/L ALT 21 (0-40) U/L Alkaline Phosphatase 87 (39-117) U/L Total Protein 7.1 (6.5-8.0) g/dL Albumin 4.3 (3.5-5.0) g/dL Lipase 76 (8-78) U/L Urine Color Yellow Urine Appearance Clear Urine pH 6.0 (5.0-9.0) Ur Specific [place] 1.015 (1.005-1.025) Urine Protein Negative (Neg-Trace) mg/dL Urine Glucose (UA) Negative (Negative) mg/dL Urine Ketones Negative (Negative) mg/dL Urine Blood Negative (Negative) Urine Nitrite Negative (Negative) Ur Leukocyte Esterase Negative (Negative) Urine RBC 0-2 (0-2) /HPF Urine WBC 0-5 (0-5) /HPF Ur Squamous Epith Cells 0-2 (0-2) /HPF Urine Bacteria None Seen (None Seen) Hyaline Casts 0-2 (0-2) /LPF Discharge Plan Discharge Clinical Impression: Biliary colic Patient Disposition: Home, Self-Care Instructions: Biliary Colic (ED) Additional Instructions: You have sludge in gallbladder which causing the pain Avoid fried food. Follow with surgeon if pain continues Referrals: John Deluna MD [Physician] - 2 weeks Interventions: ED Discharge Assessment Last Done: 06/15/22 04:07 Discharge Date/Time: 06/15/22 04:08
--- NOTE | 2022-06-15 02:51 | PC.NURSE ---
pt a&o, no sob or chest pain, pt refusing Iv and medication at this time, provider is aware. pt able to ambulate with a steady gait, with no abd guarding. Will continue to monitor.
[2022-06-15 02:57] LABS: Hematocrit 48.3 % (42.0-52.0); Hemoglobin 17.3 g/dl (14.0-18.0); Mean Corpuscular HGB Conc 35.8 g/dl (31.0-36.0); Mean Corpuscular Hemoglobin 32.1 pg (27.0-33.0); Mean Corpuscular Volume 89.6 fL (80.0-98.0); Mean Platelet Volume 9.6 fL (9.4-12.4); Platelet Count 240 X10*3/uL (160-400); Red Blood Count 5.39 X10*6/uL (4.60-5.80); Red Cell Distribution Width 11.8 % (11.0-16.0); White Blood Count 6.4 X10*3/uL (4.8-10.8)
[2022-06-15 03:21] LABS: Alanine Aminotransferase 21 U/L (0-40); Albumin Level 4.3 g/dL (3.5-5.0); Alkaline Phosphatase 87 U/L (39-117); Anion Gap 13 (12-20); Aspartate Amino Transferase 21 U/L (5-37); Bilirubin Total 0.6 mg/dL (0.0-1.0); Blood Urea Nitrogen 12 mg/dL (9-16); Calcium 9.6 mg/dL (8.4-10.2); Carbon Dioxide 27 mmol/L (22-29); Chloride 104 mmol/L (96-108); Creatinine Clr Calc Pharmacy 115.5; Estimated Glomerular Filt Rate > 60; Glucose Random 104 mg/dL (60-115); Lipase 76 U/L (8-78); Potassium 4.1 mmol/L (3.3-5.1); Sodium 140 mmol/L (135-145); Total Protein 7.1 g/dL (6.5-8.0)
[2022-06-15 03:46] LABS: Appearance Urine Clear; Color Urine Yellow; Glucose Urine UA Negative (Negative); Leukocyte Esterase Urine Negative (Negative); Nitrite Urine Negative (Negative); Specific Gravity - Urine 1.015 (1.005-1.025); Urine Blood Negative (Negative); Urine Ketones Negative (Negative); Urine Protein Negative (Neg-Trace)
[2022-06-15 03:48] LABS: Bacteria Urine None Seen (None Seen); Hyaline Casts Urine 0-2 /LPF (0-2); RBC Urine 0-2 /HPF (0-2); Squamous Epithelial Cell Urine 0-2 /HPF (0-2); WBC Urine 0-5 /HPF (0-5)
--- NOTE | 2022-06-15 03:59 | PC.NURSE ---
Several attempts to medicated pt, pt refused, no sign of distress.
[2022-06-15 04:02] VITALS: BP 126/91; PULSE 66; RESP 15; TEMP 36.9; O2SAT 96
--- NOTE | 2022-06-15 04:06 | PC.NURSE ---
Reviewed discharge instructions with pt. pt verbalized understanding, pt able to ambulate with a steady gait, No sign of distress at discharge.
== END 2022-06-15 04:08 | disposition home or self-care (01) ==
PROVIDERS: Emergency Provider Internal Medicine; PCP Student in an Organized Health Care Education/Training Program
DX: K80.50 Calculus of bile duct without cholangitis or cholecystitis without obstruction (principal); R10.2 Pelvic and perineal pain; Z79.899 Other long term (current) drug therapy
CPT/HCPCS: 36415; 76705; 80053; 81001; 83690; 85027; 99284

== ENCOUNTER 2022-06-30 18:14 | Emergency (ER) | payer MEDICAID, SELFPAY ==
--- NOTE | ~2022-06-30 | XR_ITS ---
EXAMINATION: XR ABDOMEN KUB CLINICAL INDICATION: Pain. COMPARISON: Most recent CT of the abdomen/pelvis dated 07/21/2021. TECHNIQUE: AP supine views of the abdomen. FINDINGS: Nonobstructive bowel gas pattern. Moderate air and stool throughout the bowel. No abnormal soft tissue calcification. No acute osseous abnormality. XR/XR KUB IMPRESSION: Moderate stool burden. Nonobstructive bowel gas pattern.
--- NOTE | ~2022-06-30 | XR_ITS ---
EXAMINATION: PORTABLE CHEST 1 VIEW CLINICAL INFORMATION: CP. COMPARISON: 07/21/2021. TECHNIQUE: Portable frontal view of the chest was obtained. FINDINGS: The lungs are well expanded. No focal infiltrate, effusion, edema, or pneumothorax. Cardiac and mediastinal silhouettes are within normal limits for technique. No acute bony abnormality seen. XR/XR chest 1V IMPRESSION: No evidence of acute disease.
[2022-06-30 18:16] VITALS: BP 158/96; PULSE 96; O2SAT 98
--- NOTE | 2022-06-30 18:16 | ED.GENADULT ---
HPI - General Adult General Chief complaint: Chest Pain <NORI Kay - Last Filed: 06/30/22 18:43> Stated complaint: HYPERTENSION <NORI Kay - Last Filed: 06/30/22 18:43> Time Seen by Provider: 06/30/22 20:24 <NORI Kay - Last Filed: 06/30/22 18:43> Source: patient, RN notes reviewed and old records reviewed <Farhad Chow - Last Filed: 06/30/22 23:51> Mode of arrival: EMS <Farhad Chow - Last Filed: 06/30/22 23:51> Limitations: no limitations <Farhad Chow - Last Filed: 06/30/22 23:51> History of Present Illness HPI narrative: 36-year-old male with past medical history significant for hemochromatosis, polycythemia vera, palpitations presents for evaluation of upper abdominal pain, dizziness and high blood pressure. The patient brought his home blood pressure cuff with him because ?I was sitting watching TV and started to feel really dizzy and have pain in my abdomen sore to my blood pressure and it was as high as 176/110. He checked his blood pressure 4 times within 5 minutes and each occasion it was elevated He does not take medication for blood pressure Patient states that he did not have chest pain, chest upper abdominal pain He states that in the past he has had blood draws to control his blood pressure due to his history of hemochromatosis and polycythemia vera. Patient reports he is due to see a GI doctor within the next month for a pill camera <Farhad Chow - Last Filed: 06/30/22 23:51> Related Data Allergies/adverse reactions: Allergies Allergy/AdvReac Type Severity Reaction Status Date / Time metronidazole [From Flagyl] Allergy Unknown Nausea, Verified 06/30/22 18:40 sweats, Diarrhea <NORI Kay - Last Filed: 06/30/22 18:43> Review of Systems Constitutional: Constitutional: Reports as per HPI, Denies chills, Denies fatigue and Denies fever(s) <Farhad Chow - Last Filed: 06/30/22 23:51> Cardiovascular: Cardiovascular: Denies chest pain and Denies dyspnea <Farhad Chow - Last Filed: 06/30/22 23:51> Respiratory: Respiratory: Denies cough and Denies dyspnea <Farhad Chow - Last Filed: 06/30/22 23:51> Gastrointestinal: Gastrointestinal: Reports abdominal pain, Denies constipation and Denies vomiting <Farhad Chow - Last Filed: 06/30/22 23:51> Genitourinary: Genitourinary: Denies difficulty urinating and Denies dysuria <Farhad Chow - Last Filed: 06/30/22 23:51> Neurologic: Denies focal weakness <Farhad Chow - Last Filed: 06/30/22 23:51> Endocrine: Endocrine: Denies fatigue <Farhad Chow - Last Filed: 06/30/22 23:51> [facility] Past Medical History Medical History: Medical History Anxiety Autosomal dominant hereditary hemochromatosis Dizziness HTN (hypertension) Mild intermittent allergic 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 Mood disorder Paresthesia Thrombosed external hemorrhoid Thyroid nodule <NORI Kay - Last Filed: 06/30/22 18:43> Surgical History: Surgical History Hx of wisdom tooth extraction S/P fine needle aspiration <NORI Kay - Last Filed: 06/30/22 18:43> Family History Family History: Family History Father CLL (chronic lymphocytic leukemia) Diabetes Paternal Grandfather Diabetes Maternal Grandmother H/O heart bypass surgery Mother Drug abuse <NORI Kay - Last Filed: 06/30/22 18:43> Social History Social History: Social History Household Members: None Housing: Apartment Are you a primary child care cook to a significant other at home: No Do you presently have visiting nurse or other home services: No Alcohol intake: never Patient Tobacco Use Status: Never used Tobacco Smoked in Last 30 Days: No Use of substances other than those prescribed or required for medical reasons: No Advance Directives: No Advance Directives Information Provided: No service: No Current occupational status: unemployed <NORI Kay - Last Filed: 06/30/22 18:43> Physical Exam ED Vital Signs: Vital Signs - 24 hr 06/30/22 18:40 06/30/22 20:30 06/30/22 22:38 Temperature 97.8 F 98.5 F Pulse Rate 97 86 86 Respiratory Rate 18 12 Blood Pressure 140/94 H 145/91 H 139/97 H Pulse Oximetry 96 97 Oxygen Delivery Method Room Air Room Air BMI result Body Mass Index 27.7 <NORI Kay - Last Filed: 06/30/22 18:43> Vital Signs - 24 hr 06/30/22 18:40 06/30/22 20:30 06/30/22 22:38 Temperature 97.8 F 98.5 F Pulse Rate 97 86 86 Respiratory Rate 18 12 Blood Pressure 140/94 H 145/91 H 139/97 H Pulse Oximetry 96 97 Oxygen Delivery Method Room Air Room Air BMI result Body Mass Index 27.7 <Farhad Chow - Last Filed: 06/30/22 23:51> Const General: healthy appearing, comfortable, no acute distress, alert and awake <Farhad Chow - Last Filed: 06/30/22 23:51> Nutritional Appearance: well nourished <Farhad Chow - Last Filed: 06/30/22 23:51> Orientation/consciousness: patient oriented x3 <Farhad Chow - Last Filed: 06/30/22 23:51> HENDC Head: Yes normocephalic and Yes atraumatic <Farhad Chow - Last Filed: 06/30/22 23:51> Throat: Yes posterior oropharynx normal <Farhad Chow - Last Filed: 06/30/22 23:51> Eyes Eyelids: Yes eyelids normal <Farhad Chow - Last Filed: 06/30/22 23:51> Conjunctivae: conjunctivae normal <Farhad Chow - Last Filed: 06/30/22 23:51> Sclerae: sclerae normal <Farhad Chow - Last Filed: 06/30/22 23:51> Corneas: corneas normal <Farhad O Last Filed: 06/30/22 23:51> Pupils: Equal, round and reactive pupils present <Farhad O Last Filed: 06/30/22 23:51> EOM: EOMs intact bilaterally <Farhad Last Filed: 06/30/22 23:51> Neck Neck: Yes full ROM < Last Filed: 06/30/22 23:51> Resp Effort & Inspection: normal respiratory effort, able to speak in complete sentences, no audible wheezes and not labored < Last Filed: 06/30/22 23:51> Auscultation: clear to auscultation bilaterally < Last Filed: 06/30/22 23:51> Cardio Rate: regular rate < Last Filed: 06/30/22 23:51> Rhythm: regular rhythm < Last Filed: 06/30/22 23:51> GI Inspection: No distended < Last Filed: 06/30/22 23:51> Palpation (GI): Soft to palpation, not firm, nontender, no guarding and not rigid <Farhad Last Filed: 06/30/22 23:51> Auscultation: normoactive bowel sounds <Farhad O Last Filed: 06/30/22 23:51> Skin General skin exam: no rashes or lesions noted and elasticity normal < Last Filed: 06/30/22 23:51> Neuro General: patient oriented x3 <Farhad O Last Filed: 06/30/22 23:51> Cranial nerves: Yes CN's II-XII intact bilaterally, Yes Equal, round and reactive pupils present and Yes Bilaterally intact EOM present <Farhad O Last Filed: 06/30/22 23:51> Cognition (Neuro): normal cognition <Farhad Abhishek Last Filed: 06/30/22 23:51> Extrem Other: Moving all extremities well without any obvious deformities <Farhad Chow - Last Filed: 06/30/22 23:51> Course Course Course Narrative: This is an RME: Additional HPI, ROS, PE not included below will be deferred to primary provider. 36 year old male presents with CP that radiates to the left arm and high blood pressure via home monitor. Patient reports he was watching TV when he started feeling anxious and the room started to spin. Patient rates his CP a 6/10. EMT reports BP of 158/96 on transport. <NORI Kay - Last Filed: 06/30/22 18:43> Reevaluation(s) Reevaluation #1: Patient's vital signs remained stable, his heart rate is sinusitis 60s. I added on a D-dimer which was negative. The patient is stable for discharge with outpatient follow-up <Farhad Chow - Last Filed: 06/30/22 23:51> Time: 23:49 <Farhad Chow - Last Filed: 06/30/22 23:51> Medical Decision Making Medical Decision Making [facility] Narrative: [age] year male with history of polycythemia vera and hemochromatosis presents for evaluation of high blood pressure. Patient's blood pressure on arrival to the ED is 145/91. The patient appears very anxious about his blood pressure and LEs is likely contributing to his symptoms. He denies any chest pain he is concerned he may have ?gas pains. ? will get a KUB to evaluate for obstructive bowel gas pattern I feel this is less likely. Patient's EKG is sinus rhythm with a rate of 81 beats per minute. No ectopy or arrhythmia. Patient's labs are significant for a hemoglobin of 18.1 which is just above normal but consistent the patient's baseline. Chemistries within normal limits <Farhad Chow - Last Filed: 06/30/22 23:51> Differential Diagnosis Anxiety High blood pressure Hypertension Vertigo Chest pain ACS less likely Polycythemia vera <Farhad Chow - Last Filed: 06/30/22 23:51> Lab Data [facility] Lab Attestation statement: I reviewed the patient's lab results. <Farhad Chow - Last Filed: 06/30/22 23:51> Result Diagrams: 06/30/22 19:02 06/30/22 19:02 <NORI Kay - Last Filed: 06/30/22 18:43> Labs: Lab Results 06/30/22 06/30/22 06/30/22 Range/Units 19:02 19:02 19:02 WBC 7.3 (4.8-10.8) X10*3/uL RBC 5.74 (4.60-5.80) X10*6/uL Hgb 18.1 H (14.0-18.0) g/dl Hct 51.7 (42.0-52.0) % MCV 90.1 (80.0-98.0) fL MCH 31.5 (27.0-33.0) pg MCHC 35.0 (31.0-36.0) g/dl RDW 11.5 (11.0-16.0) % Plt Count 264 (160-400) X10*3/uL MPV 9.4 (9.4-12.4) fL Immature Gran % (Auto) 0.1 (0.0-0.4) % Neut % (Auto) 69.2 (45-73) % Lymph % (Auto) 20.7 (20-40) % [place] % (Auto) 7.5 (2-11) % Eos % (Auto) 1.8 (0-4) % Baso % (Auto) 0.7 (0-2) % Lymph # (Auto) 1.5 (1.2-4.9) X10*3/uL [place] # (Auto) 0.6 (0.1-1.2) X10*3/uL Eos # (Auto) 0.1 (0.0-0.4) X10*3/uL Baso # (Auto) 0.1 (0.0-0.2) X10*3/uL Abs Immat Gran (auto) 0.01 (0.00-0.03) X10*3/uL Absolute Neuts (auto) 5.1 (2.0-8.3) x10*3/uL Absolute Nucleated RBC 0.000 (0.0-0.012) X10*3/uL Nucleated RBC % (auto) 0.0 (0.0-0.2) /100WBC D-Dimer High Sensitivty NG/ML Sodium 140 (135-145) mmol/L Potassium 4.0 (3.3-5.1) mmol/L Chloride 105 (96-108) mmol/L Carbon Dioxide 26 (22-29) mmol/L Anion Gap 13 (12-20) BUN 13 (9-16) mg/dL Creatinine 1.03 (0.5-1.4) mg/dL Estim Creat Clear Calc 105.5 Estimated GFR > 60 Random Glucose 93 (60-115) mg/dL Calcium 9.9 (8.4-10.2) mg/dL Magnesium 2.2 (1.6-2.6) mg/dL Total Bilirubin 0.7 (0.0-1.0) mg/dL AST 15 (5-37) U/L ALT 20 (0-40) U/L Alkaline Phosphatase 96 (39-117) U/L Troponin I High Sens (<3.5-35.0) ng/L Total Protein 7.6 (6.5-8.0) g/dL Albumin 4.6 (3.5-5.0) g/dL COVID-19 (ELENA) Negative (Negative) COVID-19 Clin Com See Note 06/30/22 06/30/22 Range/Units 19:02 21:57 WBC (4.8-10.8) X10*3/uL RBC (4.60-5.80) X10*6/uL Hgb (14.0-18.0) g/dl Hct (42.0-52.0) % MCV (80.0-98.0) fL MCH (27.0-33.0) pg MCHC (31.0-36.0) g/dl RDW (11.0-16.0) % Plt Count (160-400) X10*3/uL MPV (9.4-12.4) fL Immature Gran % (Auto) (0.0-0.4) % Neut % (Auto) (45-73) % Lymph % (Auto) (20-40) % [place] % (Auto) (2-11) % Eos % (Auto) (0-4) % Baso % (Auto) (0-2) % Lymph # (Auto) (1.2-4.9) X10*3/uL [place] # (Auto) (0.1-1.2) X10*3/uL Eos # (Auto) (0.0-0.4) X10*3/uL Baso # (Auto) (0.0-0.2) X10*3/uL Abs Immat Gran (auto) (0.00-0.03) X10*3/uL Absolute Neuts (auto) (2.0-8.3) x10*3/uL Absolute Nucleated RBC (0.0-0.012) X10*3/uL Nucleated RBC % (auto) (0.0-0.2) /100WBC D-Dimer High Sensitivty 151 NG/ML Sodium (135-145) mmol/L Potassium (3.3-5.1) mmol/L Chloride (96-108) mmol/L Carbon Dioxide (22-29) mmol/L Anion Gap (12-20) BUN (9-16) mg/dL Creatinine (0.5-1.4) mg/dL Estim Creat Clear Calc Estimated GFR Random Glucose (60-115) mg/dL Calcium (8.4-10.2) mg/dL Magnesium (1.6-2.6) mg/dL Total Bilirubin (0.0-1.0) mg/dL AST (5-37) U/L ALT (0-40) U/L Alkaline Phosphatase (39-117) U/L Troponin I High Sens < 2.7 (<3.5-35.0) ng/L Total Protein (6.5-8.0) g/dL Albumin (3.5-5.0) g/dL COVID-19 (ELENA) (Negative) COVID-19 Clin Com <NORI Kay - Last Filed: 06/30/22 18:43> Lab Results 06/30/22 06/30/22 06/30/22 Range/Units 19:02 19:02 19:02 WBC 7.3 (4.8-10.8) X10*3/uL RBC 5.74 (4.60-5.80) X10*6/uL Hgb 18.1 H (14.0-18.0) g/dl Hct 51.7 (42.0-52.0) % MCV 90.1 (80.0-98.0) fL MCH 31.5 (27.0-33.0) pg MCHC 35.0 (31.0-36.0) g/dl RDW 11.5 (11.0-16.0) % Plt Count 264 (160-400) X10*3/uL MPV 9.4 (9.4-12.4) fL Immature Gran % (Auto) 0.1 (0.0-0.4) % Neut % (Auto) 69.2 (45-73) % Lymph % (Auto) 20.7 (20-40) % [place] % (Auto) 7.5 (2-11) % Eos % (Auto) 1.8 (0-4) % Baso % (Auto) 0.7 (0-2) % Lymph # (Auto) 1.5 (1.2-4.9) X10*3/uL [place] # (Auto) 0.6 (0.1-1.2) X10*3/uL Eos # (Auto) 0.1 (0.0-0.4) X10*3/uL Baso # (Auto) 0.1 (0.0-0.2) X10*3/uL Abs Immat Gran (auto) 0.01 (0.00-0.03) X10*3/uL Absolute Neuts (auto) 5.1 (2.0-8.3) x10*3/uL Absolute Nucleated RBC 0.000 (0.0-0.012) X10*3/uL Nucleated RBC % (auto) 0.0 (0.0-0.2) /100WBC D-Dimer High Sensitivty NG/ML Sodium 140 (135-145) mmol/L Potassium 4.0 (3.3-5.1) mmol/L Chloride 105 (96-108) mmol/L Carbon Dioxide 26 (22-29) mmol/L Anion Gap 13 (12-20) BUN 13 (9-16) mg/dL Creatinine 1.03 (0.5-1.4) mg/dL Estim Creat Clear Calc 105.5 Estimated GFR > 60 Random Glucose 93 (60-115) mg/dL Calcium 9.9 (8.4-10.2) mg/dL Magnesium 2.2 (1.6-2.6) mg/dL Total Bilirubin 0.7 (0.0-1.0) mg/dL AST 15 (5-37) U/L ALT 20 (0-40) U/L Alkaline Phosphatase 96 (39-117) U/L Troponin I High Sens (<3.5-35.0) ng/L Total Protein 7.6 (6.5-8.0) g/dL Albumin 4.6 (3.5-5.0) g/dL COVID-19 (ELENA) Negative (Negative) COVID-19 Clin Com See Note 06/30/22 06/30/22 Range/Units 19:02 21:57 WBC (4.8-10.8) X10*3/uL RBC (4.60-5.80) X10*6/uL Hgb (14.0-18.0) g/dl Hct (42.0-52.0) % MCV (80.0-98.0) fL MCH (27.0-33.0) pg MCHC (31.0-36.0) g/dl RDW (11.0-16.0) % Plt Count (160-400) X10*3/uL MPV (9.4-12.4) fL Immature Gran % (Auto) (0.0-0.4) % Neut % (Auto) (45-73) % Lymph % (Auto) (20-40) % [place] % (Auto) (2-11) % Eos % (Auto) (0-4) % Baso % (Auto) (0-2) % Lymph # (Auto) (1.2-4.9) X10*3/uL [place] # (Auto) (0.1-1.2) X10*3/uL Eos # (Auto) (0.0-0.4) X10*3/uL Baso # (Auto) (0.0-0.2) X10*3/uL Abs Immat Gran (auto) (0.00-0.03) X10*3/uL Absolute Neuts (auto) (2.0-8.3) x10*3/uL Absolute Nucleated RBC (0.0-0.012) X10*3/uL Nucleated RBC % (auto) (0.0-0.2) /100WBC D-Dimer High Sensitivty 151 NG/ML Sodium (135-145) mmol/L Potassium (3.3-5.1) mmol/L Chloride (96-108) mmol/L Carbon Dioxide (22-29) mmol/L Anion Gap (12-20) BUN (9-16) mg/dL Creatinine (0.5-1.4) mg/dL Estim Creat Clear Calc Estimated GFR Random Glucose (60-115) mg/dL Calcium (8.4-10.2) mg/dL Magnesium (1.6-2.6) mg/dL Total Bilirubin (0.0-1.0) mg/dL AST (5-37) U/L ALT (0-40) U/L Alkaline Phosphatase (39-117) U/L Troponin I High Sens < 2.7 (<3.5-35.0) ng/L Total Protein (6.5-8.0) g/dL Albumin (3.5-5.0) g/dL COVID-19 (ELENA) (Negative) COVID-19 Clin Com <Farhad Chow - Last Filed: 06/30/22 23:51> Discharge Plan Discharge Clinical Impression: Dizziness <NORI Kay - Last Filed: 06/30/22 18:43> Patient Disposition: Home, Self-Care <NORI Kay - Last Filed: 06/30/22 18:43> Instructions: Dizziness (ED) <NORI Kay - Last Filed: 06/30/22 18:43> Additional Instructions: Your workup in the emergency department today was reassuring. Your EKG annual cardiac monitoring did not show any abnormal heart rhythms Your abdominal exam showed a moderate amount of constipation you may try an [id number] stool softener/laxative. Follow-up with your primary doctor <NORI Kay - Last Filed: 06/30/22 18:43>
[2022-06-30 18:40] VITALS: BP 140/94; PULSE 97; RESP 18; TEMP 36.6; O2SAT 96; BMI 27.7
--- NOTE | 2022-06-30 18:41 | ECG_ITS ---
Test Reason : CP Blood Pressure : / mmHG Vent. Rate : 081 BPM Atrial Rate : 081 BPM P-R Int : 134 ms QRS Dur : 076 ms QT Int : 360 ms P-R-T Axes : 061 067 051 degrees QTc Int : 418 ms Normal sinus rhythm with sinus arrhythmia Normal ECG When compared with ECG of 02-MAY-2022 20:40, No significant change was found Referred By: Brie Talley Electronically Signed By:Willie Marin
[2022-06-30 19:07] LABS: MANUAL DIFF FLAG NO
[2022-06-30 19:12] LABS: Basophils Absolute Auto 0.1 X10*3/uL (0.0-0.2); Basophils Percent Auto 0.7 % (0-2); Eosinophils Absolute Auto 0.1 X10*3/uL (0.0-0.4); Eosinophils Percent Auto 1.8 % (0-4); Hematocrit 51.7 % (42.0-52.0); Hemoglobin 18.1 g/dl (14.0-18.0); Imm Gran Abs Auto 0.01 X10*3/uL (0.00-0.03); Imm Gran Pct Auto 0.1 % (0.0-0.4); Lymphocytes Absolute Auto 1.5 X10*3/uL (1.2-4.9); Lymphocytes Percent Auto 20.7 % (20-40); Mean Corpuscular Hemoglobin 31.5 pg (27.0-33.0); Mean Corpuscular Volume 90.1 fL (80.0-98.0); Mean Platelet Volume 9.4 fL (9.4-12.4); Monocytes Absolute Auto 0.6 X10*3/uL (0.1-1.2); Monocytes Percent Auto 7.5 % (2-11); Neutrophils Absolute Auto 5.1 x10*3/uL (2.0-8.3); Neutrophils Percent Auto 69.2 % (45-73); Platelet Count 264 X10*3/uL (160-400); Red Blood Count 5.74 X10*6/uL (4.60-5.80); Red Cell Distribution Width 11.5 % (11.0-16.0); White Blood Count 7.3 X10*3/uL (4.8-10.8)
[2022-06-30 19:20] LABS: COVID-19 Test Negative (Negative); IDNOW Serial# BCCEAD1C
[2022-06-30 19:25] LABS: Alanine Aminotransferase 20 U/L (0-40); Albumin Level 4.6 g/dL (3.5-5.0); Alkaline Phosphatase 96 U/L (39-117); Anion Gap 13 (12-20); Aspartate Amino Transferase 15 U/L (5-37); Bilirubin Total 0.7 mg/dL (0.0-1.0); Blood Urea Nitrogen 13 mg/dL (9-16); Calcium 9.9 mg/dL (8.4-10.2); Carbon Dioxide 26 mmol/L (22-29); Chloride 105 mmol/L (96-108); Creatinine Clr Calc Pharmacy 105.5; Estimated Glomerular Filt Rate > 60; Glucose Random 93 mg/dL (60-115); Magnesium 2.2 mg/dL (1.6-2.6); Sodium 140 mmol/L (135-145); Total Protein 7.6 g/dL (6.5-8.0)
[2022-06-30 19:44] LABS: Troponin-I High Sensitivity < 2.7 ng/L (<3.5-35.0)
[2022-06-30 20:30] VITALS: BP 145/91; PULSE 86; RESP 12; TEMP 36.9; O2SAT 97
--- NOTE | 2022-06-30 21:07 | PC.NURSE ---
this rn assumed care of pt @ 2029. pt placed on cariac monitor. nani adair at bedside for assessment at this time. pt calm and cooperative. vss
--- NOTE | 2022-06-30 21:30 | PC.NURSE ---
pt declines chest. states no chest pain expresses feeling dizzy. nani adair made aware of this during bedside assessment of pt.
[2022-06-30 22:38] VITALS: BP 139/97; PULSE 86
[2022-06-30 23:12] LABS: D Dimer High Sensitivity 151 NG/ML
[2022-07-01 00:08] VITALS: BP 139/95; PULSE 78; RESP 16; TEMP 36.7; O2SAT 98
--- NOTE | 2022-07-01 00:15 | PC.NURSE ---
pt ambulatory at discharge. vss. pt reports no chest pain at discharge. skin pwd. pt provided with discharge packet. pt verbalized understanding of discharge plan
== END 2022-07-01 00:16 | disposition home or self-care (01) ==
PROVIDERS: Physician Assistant; Emergency Provider Emergency Medicine Emergency Medical Services; PCP Student in an Organized Health Care Education/Training Program
DX: R42 Dizziness and giddiness (principal); R07.89 Other chest pain; I10 Essential (primary) hypertension; R10.10 Upper abdominal pain, unspecified; Z20.822 Contact with and (suspected) exposure to COVID-19; Z20.828 Contact with and (suspected) exposure to other viral communicable diseases; Z79.899 Other long term (current) drug therapy
CPT/HCPCS: 36415; 71045; 74018; 80053; 83735; 84484; 85025; 85379; 87635; 93005; 99283; 99285

== ENCOUNTER → 2022-07-15 10:28 | Outpatient (BNVA) | payer MEDICAID, SELFPAY | PROVIDERS: PCP Student in an Organized Health Care Education/Training Program; Visit Provider Nurse Practitioner Family | DX: K21.9 Gastro-esophageal reflux disease without esophagitis (principal); K58.2 Mixed irritable bowel syndrome; R10.11 Right upper quadrant pain; R74.8 Abnormal levels of other serum enzymes; E83.110 Hereditary hemochromatosis | CPT/HCPCS: 99202 ==

== ENCOUNTER 2022-07-22 14:48 | Outpatient (REF) | payer MEDICAID, SELFPAY ==
--- NOTE | ~2022-07-22 | US_ITS ---
EXAMINATION: US RETROPERITONEAL LIMITED (RENAL ONLY) CLINICAL INFORMATION: Cyst of kidney, acquired. COMPARISON: Ultrasound abdomen limited 06/15/2022. CT abdomen and pelvis with contrast 07/21/2021. Ultrasound abdomen complete 03/26/2021. TECHNIQUE: Real-time imaging of the kidneys. FINDINGS: RIGHT KIDNEY: 11.0 x 5.2 x 6.5 cm (SAG x AP x TRV). The kidney is normal in size, contour, and echogenicity. Renal cortical thickness is normal. No renal calculi or hydronephrosis. 3.2 cm simple cyst in the upper pole. No follow-up imaging is recommended. LEFT KIDNEY: 11.4 x 5.7 x 6.4 cm (SAG x AP x TRV). The kidney is normal in size, contour, and echogenicity. Renal cortical thickness is normal. No calculi or focal parenchymal lesions. No hydronephrosis. US/US renal BI IMPRESSION: Stable simple cyst in the right kidney. No follow-up imaging is recommended.
[2022-07-30 21:23] LABS: Pancreatic Elastase-1 >500 mcg/g
== END 2022-07-22 14:49 | disposition home or self-care (01) ==
LOC: HO.HMGCX 14:48
PROVIDERS: Nurse Practitioner Family; PCP Student in an Organized Health Care Education/Training Program; Visit Provider Urology
DX: Z11.2 Encounter for screening for other bacterial diseases (principal); N28.1 Cyst of kidney, acquired; R10.9 Unspecified abdominal pain; K21.9 Gastro-esophageal reflux disease without esophagitis
CPT/HCPCS: 76775; 82656; 87338

== ENCOUNTER → 2022-08-24 11:43 | Outpatient (BNVA) | payer MEDICAID, SELFPAY | PROVIDERS: Visit Provider Nurse Practitioner Family | DX: K62.89 Other specified diseases of anus and rectum (principal); K21.9 Gastro-esophageal reflux disease without esophagitis; K58.1 Irritable bowel syndrome with constipation; E83.110 Hereditary hemochromatosis | CPT/HCPCS: 99212 ==

== ENCOUNTER → 2022-09-06 12:56 | Outpatient (BNVA) | payer MEDICAID, SELFPAY | PROVIDERS: PCP Student in an Organized Health Care Education/Training Program; Visit Provider Urology | DX: N52.9 Male erectile dysfunction, unspecified (principal); N28.1 Cyst of kidney, acquired | CPT/HCPCS: 99212 ==

== ENCOUNTER → 2022-09-15 14:08 | Outpatient (BNVA) | payer MEDICAID, SELFPAY | PROVIDERS: PCP Student in an Organized Health Care Education/Training Program; Referring Provider Nurse Practitioner Family; Visit Provider Surgery ==

== ENCOUNTER 2022-10-06 13:04 | Outpatient (REF) | payer MEDICAID, SELFPAY ==
[2022-10-06 16:24] LABS: Glucose Fasting 90 mg/dL (60-99)
[2022-10-08 07:28] LABS: Follicle Stimulating Hormone 5.2 mIU/mL (1.6-8.0); Lutenizing Hormone 4.5 mIU/mL (1.5-9.3)
[2022-10-11 12:13] LABS: Testosterone, Free 93.6 pg/mL (35.0-155.0); Testosterone, Total 517 ng/dL (250-1100)
== END 2022-10-06 13:05 | disposition home or self-care (01) ==
LOC: HO.HMGCLDS 13:04
PROVIDERS: Urology; Visit Provider Nurse Practitioner Family
DX: N52.9 Male erectile dysfunction, unspecified (principal)
CPT/HCPCS: 36415; 82947; 83001; 83002; 84402; 84403

== ENCOUNTER 2022-10-23 19:54 | Emergency (ER) | payer MEDICAID, SELFPAY ==
--- NOTE | ~2022-10-23 | CT_ITS ---
EXAMINATION: CT HEAD WITHOUT CONTRAST CLINICAL INFORMATION: Left facial numbness. COMPARISON: CT head from 07/21/2021. TECHNIQUE: Contiguous axial imaging was performed from the skull base to vertex without intravenous administration of contrast. This CT examination was performed using dose optimization techniques as appropriate, variously including the following: *Automated exposure control. *Adjustment of mA and/or kV according to patient size (this includes techniques or standardized protocols for targeted exams where dose is matched to indication/reason for exam; i.e. extremities or head). *Use of iterative reconstruction technique. DLP: 731 mGy-cm FINDINGS: There is no evidence of acute intracranial hemorrhage or edematous territorial infarction. Young-white matter differentiation is preserved. There is no abnormal attenuation within the brain parenchyma. The ventricles are normal in morphology and size. No evidence for obstructive hydrocephalus. No abnormal mass effect or midline shift. No extra-axial fluid collections. No acute soft tissue or osseous abnormalities. Mild mucosal thickening of the paranasal sinuses. Mild leftward nasal septal deviation with spurring. The mastoid air cells and middle ear cavities are clear. CT/CT head/brain wo IV con IMPRESSION: No evidence of acute intracranial hemorrhage or edematous territorial infarction.
[2022-10-23 19:59] VITALS: BP 136/95; PULSE 87; O2SAT 96
--- NOTE | 2022-10-23 20:07 | ED_ITS ---
HPI - Dizziness General Chief Complaint: Neuro Symptoms/Deficit Stated Complaint: dizzy, L side face numb, shoulders feel heavy Time Seen by Provider: 10/23/22 21:41 Source: patient Mode of arrival: ambulatory Limitations: no limitations History of Present Illness HPI Narrative: 37-year-old male with history of hemochromatosis presents with left facial numbness and vertiginous symptoms. Symptoms started today. There sudden-onset. Patient described them as moderate nature. There is no clear relieving or exac erbating features. However, they have started to get better on her own. Patient denies any headache, nausea, vomiting. Patient describes the vertigo as actually the sensation of movement but also associated with some lightheadedness. Did not feel like he was going to pass out. No chest pain or palpitations. Denied any shortness of breath. Patient also describes some paresthesias predominantly in the maxillary area on the left side. He denies any weakness, facial asymmetry, weakness or any additional neurologic complaints. Related Data Home Medications Medication Instructions Recorded Confirmed linaclotide 72 mcg capsule 72 mcg PO QAM 07/15/22 09/06/22 (Linzess) Previous Rx's Medication Instructions Recorded pantoprazole 40 mg tablet,delayed 40 mg PO DAILY #30 tabs 07/15/22 release tadalafil 5 mg tablet (Cialis) 5 mg PO DAILY #90 tabs 09/06/22 cholecalciferol (vitamin D3) 50 50 mcg PO DAILY #90 caps 09/16/22 mcg (2,000 unit) capsule Allergies Allergy/AdvReac Type Severity Reaction Status Date / Time metronidazole [From Flagyl] Allergy Unknown Nausea, Verified 10/23/22 20:08 sweats, Diarrhea cialis Allergy Severe Unknown Uncoded 10/23/22 20:08 Review of Systems Review of Systems: CONSTITUTIONAL: Denies weight loss, fever and chills. HEENT: Denies changes in vision and hearing. RESPIRATORY: Denies SOB and cough. CV: Denies palpitations no CP. GI: Denies abdominal pain, nausea, vomiting and diarrhea. : Denies dysuria and urinary frequency. MSK: Denies myalgia and joint pain. SKIN: Denies rash and pruritus. NEUROLOGICAL: Denies headache and syncope. PSYCHIATRIC: Denies recent changes in mood. Denies anxiety and depression. All other ROS are negative unless in HPI PMFSH Past Medical History Medical History Anxiety Autosomal dominant hereditary hemochromatosis Dizziness HTN (hypertension) Mild intermittent allergic 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 Mood disorder Paresthesia Thrombosed external hemorrhoid Thyroid nodule Surgical History Hx of wisdom tooth extraction S/P fine needle aspiration Family History Family History Father CLL (chronic lymphocytic leukemia) Diabetes Paternal Grandfather Diabetes Maternal Grandmother H/O heart bypass surgery Mother Drug abuse Social History Social History Household Members: None Housing: Apartment Are you a primary clinical care manager to a significant other at home: No Do you presently have visiting nurse or other home services: No Alcohol intake: never Patient Tobacco Use Status: Never used Tobacco Advance Directives: No Advance Directives Information Provided: No service: No Current occupational status: unemployed Physical Exam Vital Signs: Vital Signs: Last Vital Signs Temp 98.1 F 10/23/22 21:27 Pulse 75 10/23/22 21:27 Resp 18 10/23/22 21:27 BP 133/86 10/23/22 21:27 Pulse Ox 96 10/23/22 21:27 O2 Del Method Room Air 10/23/22 21:27 BMI result Body Mass Index 27.2 GEN: Well developed, no acute distress, alert, oriented HEENT: Normocephalic, atraumatic, normal external ears, nose appears normal, no oropharyngeal edema or exudates Eyes: Normal to appearance Neck: Supple, no lymphadenopathy Respiratory: Talks in complete sentences, no respiratory distress, clear to auscultation bilaterally Cardiovascular: Regular rate and rhythm, no murmurs rubs or gallops Abdomen: Soft, nontender, nondistended, no guarding, no rebound Back: No CVA tenderness Extremities: No clubbing cyanosis or edema Neurologic: No focal neurologic deficits, cranial nerves 2-12 intact, strength is 5/5 bilaterally, no nystagmus, no pronator drift, normal rapid alternating movements, mildly decreased sensation over the maxillary mandibular area of the face, no asymmetry Skin: No rash Course Course Course Narrative: This is a rapid medical exam. Deferred additional HPI, ROS, PE to primary provider. 37 yo male with a history of past medical history significant for thoracic outlet syndrome, hemochromatosis, polycythemia vera here with c omplaints of left sided facial numbness since 515 with radiation of numbness into both shoulders with heaviness w/ dizziness/nausea. Used to have therapeutic phlebotomies. Followed by hematology at [facility]. Facial strength normal in triage. Will need labs, EKG, CT head VSS Reevaluation(s) Reevaluation #1: The workup is complete. Imaging studies were negative. Laboratory analysis was not remarkable for any cause of his symptoms. Patient has follow-up shortly with Neurology in any event EMG studies as well. I have offered the patient has symptomatic relief out every does not want any prescriptions at this time. Will discharge the patient back home he can return for any worsening or concerning symptoms. Time: 22:14 Medical Decision Making Medical Decision Making [facility] Narrative: Patient presents with a couple of complaints include paresthesias and vertigo. Examination was benign. He did have slightly decreased sensation over the left maxillary mandibular area but there are no other focal neurologic deficits. Etiology is not entirely clear. CT scan laboratory analysis has been ordered prior to my arrival. Patient is already feeling better without any significant intervention. Differential diagnosis includes vertigo, BPPV, labyrinthitis, Meniere's disease, vestibular neuritis, facial nerve inflammation, multiple sclerosis. I suspect patient will be able to be discharged unless there are any significant abnormal findings. Differential Diagnosis Differential Diagnoses: The differential diagnosis associated with the presentation includes Admission/Observation Consideration of admission/observation: Escalation of care including admission/observation considered Lab Data [facility] Lab Attestation statement: I reviewed the patient's lab results. 10/23/22 20:23 10/23/22 20:23 Labs: Lab Results 10/23/22 10/23/22 10/23/22 Range/Units 20:23 20:23 20:23 WBC 8.0 (4.8-10.8) X10*3/uL RBC 5.70 (4.60-5.80) X10*6/uL Hgb 18.2 H (14.0-18.0) g/dl Hct 51.1 (42.0-52.0) % MCV 89.6 (80.0-98.0) fL MCH 31.9 (27.0-33.0) pg MCHC 35.6 (31.0-36.0) g/dl RDW 11.9 (11.0-16.0) % Plt Count 235 (160-400) X10*3/uL MPV 9.1 L (9.4-12.4) fL Immature Gran % (Auto) 0.1 (0.0-0.4) % Neut % (Auto) 71.3 (45-73) % Lymph % (Auto) 21.6 (20-40) % [place] % (Auto) 5.7 (2-11) % Eos % (Auto) 0.9 (0-4) % Baso % (Auto) 0.4 (0-2) % Lymph # (Auto) 1.7 (1.2-4.9) X10*3/uL [place] # (Auto) 0.5 (0.1-1.2) X10*3/uL Eos # (Auto) 0.1 (0.0-0.4) X10*3/uL Baso # (Auto) 0.0 (0.0-0.2) X10*3/uL Abs Immat Gran (auto) 0.01 (0.00-0.03) X10*3/uL Absolute Neuts (auto) 5.7 (2.0-8.3) x10*3/uL Absolute Nucleated RBC 0.000 (0.0-0.012) X10*3/uL Nucleated RBC % (auto) 0.0 (0.0-0.2) /100WBC PT (11.1-13.3) SEC INR (0.9-1.1) Sodium 140 (135-145) mmol/L Potassium 4.0 (3.3-5.1) mmol/L Chloride 102 (96-108) mmol/L Carbon Dioxide 29 (22-29) mmol/L Anion Gap 13 (12-20) BUN 17 H (9-16) mg/dL Creatinine 1.06 (0.5-1.4) mg/dL Estim Creat Clear Calc 101.6 Estimated GFR > 60 Random Glucose 97 (60-115) mg/dL Calcium 10.1 (8.4-10.2) mg/dL Magnesium 2.2 (1.6-2.6) mg/dL Total Bilirubin 0.7 (0.0-1.0) mg/dL Direct Bilirubin 0.2 (0.0-0.5) mg/dL AST 18 (5-37) U/L ALT 26 (0-40) U/L Alkaline Phosphatase 80 (39-117) U/L Troponin I High Sens < 2.7 (<3.5-35.0) ng/L Total Protein 7.9 (6.5-8.0) g/dL Albumin 4.6 (3.5-5.0) g/dL 10/23/22 Range/Units 20:24 WBC (4.8-10.8) X10*3/uL RBC (4.60-5.80) X10*6/uL Hgb (14.0-18.0) g/dl Hct (42.0-52.0) % MCV (80.0-98.0) fL MCH (27.0-33.0) pg MCHC (31.0-36.0) g/dl RDW (11.0-16.0) % Plt Count (160-400) X10*3/uL MPV (9.4-12.4) fL Immature Gran % (Auto) (0.0-0.4) % Neut % (Auto) (45-73) % Lymph % (Auto) (20-40) % [place] % (Auto) (2-11) % Eos % (Auto) (0-4) % Baso % (Auto) (0-2) % Lymph # (Auto) (1.2-4.9) X10*3/uL [place] # (Auto) (0.1-1.2) X10*3/uL Eos # (Auto) (0.0-0.4) X10*3/uL Baso # (Auto) (0.0-0.2) X10*3/uL Abs Immat Gran (auto) (0.00-0.03) X10*3/uL Absolute Neuts (auto) (2.0-8.3) x10*3/uL Absolute Nucleated RBC (0.0-0.012) X10*3/uL Nucleated RBC % (auto) (0.0-0.2) /100WBC PT 12.3 (11.1-13.3) SEC INR 1.0 (0.9-1.1) Sodium (135-145) mmol/L Potassium (3.3-5.1) mmol/L Chloride (96-108) mmol/L Carbon Dioxide (22-29) mmol/L Anion Gap (12-20) BUN (9-16) mg/dL Creatinine (0.5-1.4) mg/dL Estim Creat Clear Calc Estimated GFR Random Glucose (60-115) mg/dL Calcium (8.4-10.2) mg/dL Magnesium (1.6-2.6) mg/dL Total Bilirubin (0.0-1.0) mg/dL Direct Bilirubin (0.0-0.5) mg/dL AST (5-37) U/L ALT (0-40) U/L Alkaline Phosphatase (39-117) U/L Troponin I High Sens (<3.5-35.0) ng/L Total Protein (6.5-8.0) g/dL Albumin (3.5-5.0) g/dL Independent Interpretation I performed an independent interpretation of an: EKG (Normal sinus rhythm heart rate 70, no acute ST elevations depressions, normal intervals) and CT Scan (Head: No acute findings) Radiology Impression Discussion of test interpretation with radiology: I have reviewed the radiologist's reading. Radiologist Impression: CT/CT head/brain wo IV con IMPRESSION: No evidence of acute intracranial hemorrhage or edematous territorial infarction. ? Dictated By: Doug Duncan DO Signed By: <Electronically signed by Doug Duncan DO in > 10/23/222106 Prescription Management I considered prescription management with: Antiviral Chronic Conditions Patient?s care impacted by: Other (Hemochromatosis) Discharge Plan Discharge Clinical Impression: Paresthesia, Vertigo Patient Disposition: Home, Self-Care Instructions: Vertigo (ED), Paresthesia (ED) Prescriptions: No Action cholecalciferol (vitamin D3) 50 mcg (2,000 unit) capsule 50 mcg PO DAILY Qty: 90 3RF Linzess 72 mcg capsule 72 mcg PO QAM pantoprazole 40 mg tablet,delayed release (DR/EC) 40 mg PO DAILY Qty: 30 2RF Rx Instructions: take one tablet half an hour before breakfast tadalafil [Cialis] 5 mg tablet 5 mg PO DAILY Qty: 90 1RF Rx Instructions: [id number] [facility] [id number] Member [id number] Referrals: [facility] [Primary Care Provider] -
[2022-10-23 20:08] VITALS: BP 133/97; PULSE 88; RESP 16; TEMP 36.9; O2SAT 95; BMI 27.2
--- NOTE | 2022-10-23 20:11 | ECG_ITS ---
Test Reason : CHEST PAIN Blood Pressure : / mmHG Vent. Rate : 070 BPM Atrial Rate : 070 BPM P-R Int : 130 ms QRS Dur : 076 ms QT Int : 376 ms P-R-T Axes : 046 062 041 degrees QTc Int : 406 ms Normal sinus rhythm Normal ECG When compared with ECG of 30-JUN-2022 18:51, No significant change was found Referred By: Antonella Qiu Electronically Signed By:TERRANCE FAM
[2022-10-23 20:28] LABS: MANUAL DIFF FLAG NO
[2022-10-23 20:30] LABS: Basophils Percent Auto 0.4 % (0-2); Eosinophils Absolute Auto 0.1 X10*3/uL (0.0-0.4); Eosinophils Percent Auto 0.9 % (0-4); Hematocrit 51.1 % (42.0-52.0); Hemoglobin 18.2 g/dl (14.0-18.0); Imm Gran Abs Auto 0.01 X10*3/uL (0.00-0.03); Imm Gran Pct Auto 0.1 % (0.0-0.4); Lymphocytes Absolute Auto 1.7 X10*3/uL (1.2-4.9); Lymphocytes Percent Auto 21.6 % (20-40); Mean Corpuscular HGB Conc 35.6 g/dl (31.0-36.0); Mean Corpuscular Hemoglobin 31.9 pg (27.0-33.0); Mean Corpuscular Volume 89.6 fL (80.0-98.0); Mean Platelet Volume 9.1 fL (9.4-12.4); Monocytes Absolute Auto 0.5 X10*3/uL (0.1-1.2); Monocytes Percent Auto 5.7 % (2-11); Neutrophils Absolute Auto 5.7 x10*3/uL (2.0-8.3); Neutrophils Percent Auto 71.3 % (45-73); Platelet Count 235 X10*3/uL (160-400); Red Cell Distribution Width 11.9 % (11.0-16.0)
[2022-10-23 20:34] LABS: Prothrombin Time 12.3 SEC (11.1-13.3)
[2022-10-23 20:43] LABS: Alanine Aminotransferase 26 U/L (0-40); Albumin Level 4.6 g/dL (3.5-5.0); Alkaline Phosphatase 80 U/L (39-117); Anion Gap 13 (12-20); Aspartate Amino Transferase 18 U/L (5-37); Bilirubin Direct 0.2 mg/dL (0.0-0.5); Bilirubin Total 0.7 mg/dL (0.0-1.0); Blood Urea Nitrogen 17 mg/dL (9-16); Calcium 10.1 mg/dL (8.4-10.2); Carbon Dioxide 29 mmol/L (22-29); Chloride 102 mmol/L (96-108); Creatinine Clr Calc Pharmacy 101.6; Estimated Glomerular Filt Rate > 60; Glucose Random 97 mg/dL (60-115); Magnesium 2.2 mg/dL (1.6-2.6); Sodium 140 mmol/L (135-145); Total Protein 7.9 g/dL (6.5-8.0)
[2022-10-23 20:50] LABS: Troponin-I High Sensitivity < 2.7 ng/L (<3.5-35.0)
[2022-10-23 21:27] VITALS: BP 133/86; PULSE 75; RESP 18; TEMP 36.7; O2SAT 96
== END 2022-10-23 22:19 | disposition home or self-care (01) ==
PROVIDERS: Nurse Practitioner Family; Emergency Provider Emergency Medicine
DX: R42 Dizziness and giddiness (principal); R20.2 Paresthesia of skin; I10 Essential (primary) hypertension; Z86.718 Personal history of other venous thrombosis and embolism; Z79.899 Other long term (current) drug therapy
CPT/HCPCS: 36415; 70450; 80048; 80076; 83735; 84484; 85025; 85610; 93005; 99283; 99284

== ENCOUNTER 2022-11-30 14:59 | Outpatient (REF) | payer MEDICAID, SELFPAY ==
[2022-11-30 17:47] LABS: CT PCR NOT DETECTED (Not Detect.); NG PCR NOT DETECTED (Not Detect.)
== END 2022-11-30 15:00 | disposition home or self-care (01) ==
LOC: HO.HHCL 14:59
PROVIDERS: Visit Provider Student in an Organized Health Care Education/Training Program
DX: Z72.51 High risk heterosexual behavior (principal)
CPT/HCPCS: 0353U

== ENCOUNTER 2022-12-18 22:17 | Emergency (ER) | payer MEDICAID, SELFPAY ==
[2022-12-18 22:36] VITALS: BP 144/98; PULSE 90; O2SAT 98
[2022-12-18 23:06] VITALS: BP 138/96; PULSE 88; RESP 18; TEMP 36.1; O2SAT 95; BMI 26.5
--- NOTE | 2022-12-19 00:21 | ED.WOUNDLAC ---
HPI - Wound/Laceration General Chief Complaint: Wound/Laceration Stated Complaint: stepped on a nail. Time Seen by Provider: 12/19/22 00:15 Source: patient Mode of arrival: EMS Limitations: no limitations History of Present Illness HPI narrative: 37 yo male with PMH of DVT, palpitations, anxiety stepped on a nail yesterday L foot bare foot - he comes in for tetanus shot. He cleaned area at home Onset (ago): day(s) (1) Extremity Location: left: foot Place: outdoors Patient tetanus UTD: No Context: accidental Associated symptoms: none Treatments prior to arrival: other (cleaned area at home) Related Data Home Medications Medication Instructions Recorded Confirmed linaclotide 72 mcg capsule 72 mcg PO QAM 07/15/22 09/06/22 (Linzess) Previous Rx's Medication Instructions Recorded pantoprazole 40 mg tablet,delayed 40 mg PO DAILY #30 tabs 07/15/22 release tadalafil 5 mg tablet (Cialis) 5 mg PO DAILY #90 tabs 09/06/22 cholecalciferol (vitamin D3) 50 50 mcg PO DAILY #90 caps 09/16/22 mcg (2,000 unit) capsule Allergies Allergy/AdvReac Type Severity Reaction Status Date / Time metronidazole [From Flagyl] Allergy Unknown Nausea, Verified 10/23/22 20:08 sweats, Diarrhea cialis Allergy Severe Unknown Uncoded 10/23/22 20:08 Review of Systems Review of Systems: Constitutional : No Fever, No Chills, Cardiovascular : No Chest Pain, No SOB Respiratory : No Dyspnea Gastrointestinal : No abdominal pain Musculoskeletal : No Joint Swelling Skin : No rash, positive skin puncture PMFSH Past Medical History Attestation statement: The following information was validated with the patient. Source: old records reviewed Medical History Thrombosed external hemorrhoid Autosomal dominant hereditary hemochromatosis Mild intermittent allergic 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 Mood disorder Dizziness Paresthesia Thyroid nodule Anxiety HTN (hypertension) Surgical History S/P fine needle aspiration Hx of wisdom tooth extraction Family History Family History Father CLL (chronic lymphocytic leukemia) Diabetes Paternal Grandfather Diabetes Maternal Grandmother H/O heart bypass surgery Mother Drug abuse Social History Social History Household Members: None Housing: Apartment Are you a primary veterinarian laboratory animal care to a significant other at home: No Do you presently have visiting nurse or other home services: No Alcohol intake: never Patient Tobacco Use Status: Never used Tobacco service: No Current occupational status: unemployed Physical Exam Vital Signs: Vital Signs: Last Vital Signs Temp 97 F 12/18/22 23:06 Pulse 88 12/18/22 23:06 Resp 18 12/18/22 23:06 BP 138/96 H 12/18/22 23:06 Pulse Ox 95 12/18/22 23:06 O2 Del Method Room Air 12/18/22 23:06 BMI result Body Mass Index 26.5 Appearance: Alert. Oriented X3. No acute distress. Eyes: Pupils equal, round and reactive to light. ENT: Pharynx normal. Neck: Normal inspection. Neck supple. CVS: Pulses normal. Respiratory: No respiratory distress. Abdomen: atraumatic Skin: Skin warm and dry. Normal skin color. Extremities: No lower extremity edema. L foot lateral aspect of heel small puncture noted no FB felt Neuro: Oriented X 3. No motor deficit. No sensory deficit. Medical Decision Making Medical Decision Making MDM Narrative: 37 yo male with PMH of DVT, palpitations, anxiety here with c/o L foot puncture wound from nail on barefoot no signs on infection or FB at this time will give Tdap and DC home Differential Diagnosis Differential Diagnoses: The differential diagnosis associated with the presentation includes puncture wound External Record Review External record reviewed: Inpatient record Tests considered The following testing was considered but not selected: xray but doubt FB Discharge Plan Discharge Clinical Impression: Puncture wound Patient Disposition: Home, Self-Care Instructions: Puncture Wound (ED), Diphtheria/Acellular Pertussis/Tetanus Booster Vaccine (By injection) Additional Instructions: return for redness, swelling, yellow drainage, fevers or any other signs of infection Prescriptions: No Action cholecalciferol (vitamin D3) 50 mcg (2,000 unit) capsule 50 mcg PO DAILY Qty: 90 3RF Linzess 72 mcg capsule 72 mcg PO QAM pantoprazole 40 mg tablet,delayed release (DR/EC) 40 mg PO DAILY Qty: 30 2RF Rx Instructions: take one tablet half an hour before breakfast tadalafil [Cialis] 5 mg tablet 5 mg PO DAILY Qty: 90 1RF Rx Instructions: [id number] [facility] [id number] Member [id number]
[2022-12-19] MEDS: Diphth,Pertus(ACell),Tet Adult 0.5 ML SYRINGE IM (01:46)
== END 2022-12-19 01:51 | disposition home or self-care (01) ==
PROVIDERS: Emergency Provider Emergency Medicine; PCP Student in an Organized Health Care Education/Training Program
DX: S91.332A Puncture wound without foreign body, left foot, initial encounter (principal); S90.812A Abrasion, left foot, initial encounter; W45.0XXA Nail entering through skin, initial encounter; Y93.9 Activity, unspecified; Y92.9 Unspecified place or not applicable; Y99.9 Unspecified external cause status; Z23 Encounter for immunization
CPT/HCPCS: 90471; 90715; 99283; 99284

== ENCOUNTER 2022-12-20 11:05 | Outpatient (REF) | payer MEDICAID, SELFPAY ==
[2022-12-20 15:36] LABS: CT PCR NOT DETECTED (Not Detect.); NG PCR NOT DETECTED (Not Detect.)
== END 2022-12-20 11:06 | disposition home or self-care (01) ==
LOC: HO.CHCLNP 11:05
PROVIDERS: Visit Provider Internal Medicine
DX: Z11.3 Encounter for screening for infections with a predominantly sexual mode of transmission (principal); R30.0 Dysuria
CPT/HCPCS: 0353U

== ENCOUNTER 2023-01-04 12:56 | Outpatient (AMB) | payer MEDICAID, SELFPAY ==
--- NOTE | 2023-01-04 13:01 | MHC.OFFVIS ---
Intake Vital Signs 01/04/23 13:02 Height 5 ft 11 in Weight 185 lb 10.067 oz BMI 25.9 BP 110/60 Blood Pressure Location Lt brachial Position Sitting Pulse 83 Pulse Source Pulse Oximeter Pulse Oximetry (%) 98 Oxygen Delivery Method Room Air Intake Visit Reasons: Elevated Cholesterol Intake Note: Pt presents to the office today for elevated cholesterol. Pt states he is not feeling well. Pt states he has chest pain when he eats, and has heart palpitations which he believes is due to stress. Pt states he also gets nauseous and dizzy when he eats. Allergies metronidazole [From Flagyl] Allergy (Unknown, Verified 01/04/23 13:05) Nausea, sweats, Diarrhea cialis Allergy (Severe, Uncoded 01/04/23 13:05) Unknown Medication List - Last Reconciled 01/04/23 by JASON Rogers cholecalciferol (vitamin D3) 50 mcg PO DAILY linaclotide (Linzess) 72 mcg PO QAM pantoprazole 40 mg PO DAILY HPI Elevated Cholesterol HPI Details Arben is a 37-year-old male with past medical history of anxiety, hemochromatosis, atypical chest discomfort and heart palpitations.? Prior cardiac evaluations without abnormal. His last visit to cardiology was 06/02/2021. Since then he has been seen in the emergency room on 5 occasions for atypical chest pain, dizziness, abdominal discomfort, left arm pain. He requested a cardiology follow-up due to heart palpitations and elevated cholesterol readings. Today he reports that his last cholesterol was done June 2021 and it was high at that time. This is causing him concern. He has not been able to have a repeat fasting lipid profile done as he has difficulty getting transportation. He has been having issues with heart palpitations. He describes that if he eats prior to going to bed he will notice abdominal symptoms, increasing abdominal discomfort then a rapid heartbeat and chest discomfort at times. He does not notice this symptom is much in the daytime. He will have less symptoms if he does not eat in the evening prior to bedtime. He says he is being worked up for possible mesenteric ischemia. He also tells me another provider is doing an MRI to evaluate for thoracic outlet syndrome. He does not have exertional chest discomfort, shortness of breath. He tells me he gets vibrating of the blood vessels in his left neck after he eats. He also describes 1 day when the blood vessel in his neck was distended. He believes he has vascular issues. He has seen Dr. Johnson without any significant findings. He tells me that all his symptoms started after he sees started with phlebotomies for hemochromatosis. [facility] Medical History Thrombosed external hemorrhoid Autosomal dominant hereditary hemochromatosis Mild intermittent allergic 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 Mood disorder Dizziness Paresthesia Thyroid nodule Anxiety HTN (hypertension) Surgical History S/P fine needle aspiration Hx of wisdom tooth extraction Family History Father CLL (chronic lymphocytic leukemia) Diabetes Paternal Grandfather Diabetes Maternal Grandmother H/O heart bypass surgery Mother Drug abuse Social History Household Members: None Housing: Apartment Are you a primary summer child caregiver to a significant other at home: No Do you presently have visiting nurse or other home services: No Alcohol intake: never Patient Tobacco Use Status: Never used Tobacco service: No Current occupational status: unemployed Review of Systems Const All systems reviewed & are unremarkable except as noted in HPI and below ENT Details: tingling in left neck after eating GI Details: abdominal discomfort then racing heart during the night Physical Exam Vital Signs: Last Vital Signs Pulse 83 01/04/23 13:02 BP 110/60 01/04/23 13:02 Pulse Ox 98 01/04/23 13:02 Oxygen Delivery Method Room Air 01/04/23 13:02 BMI result Body Mass Index 25.9 Const General: cooperative, healthy appearing, comfortable and no acute distress Orientation/consciousness: patient oriented x3 Neck Neck: Yes normal visual inspection Resp Effort & Inspection: normal respiratory effort Auscultation: clear to auscultation bilaterally, no crackles, no rales, no rhonchi and no wheezes Cardio Jugular venous distension: no JVD Rate: regular rate Rhythm: regular rhythm Heart sounds: S1 normal heart sound present, S2 normal heart sound present, no murmurs and no rubs Neuro General: patient oriented x3 Extrem General: Yes normal to inspection Psych Appearance: grossly normal Mental Status: mental status grossly normal Speech and movement: Normal speech and movement present Assessment & Plan Assessment & Plan (1) Palpitations: Code(s): R00.2 - Palpitations Plan: History of heart palpitations. No presyncope, syncope, falls. He has undergone Holter monitor in the past showing only sinus rhythm. At this time he tells me that during most nights he starts with abdominal discomfort that increases in severity then his heart starts to beat fast which causes anxiety. He is agreeable to another Holter monitor to evaluate this symptom. He may be noticing sinus tachycardia in the setting abdominal discomfort. (2) Chest discomfort: Code(s): R07.89 - Other chest pain Plan: History of atypical chest discomfort with multiple ER visits in the past 2 years without cardiac findings. It typically occurs in the night, wakes him and causes sob, palpitation, anxiety. No exertional CP, sob. Troponin has been normal on every troponin check. Echo done 03/14/19 showed EF normal, no valve abn. Stress echo done 06/25/19 showed exercise 7 min with no EKG or echo evidence of ischemia. Limited echo done 03/12 21 shows again EF normal. EKG 10/23/2022 shows SR, no acute ST/ T wave abn, rate 70. He has no significant cardiac risk factors. His symptoms are atypical for angina. s/s angina reviewed. No plan for repeat stress test at this time. Anxiety is likely a component to his symptoms. Discussed this with him. s/s angina reviewed. (3) Hemochromatosis: Code(s): E83.119 - Hemochromatosis, unspecified Qualifiers: Hemochromatosis type: hereditary Qualified Code(s): E83.110 - Hereditary hemochromatosis Plan: Undergoes routine phlebotomies (4) Hyperlipemia: Code(s): E78.5 - Hyperlipidemia, unspecified Plan: [place] LDL goal less than 130 and patient with no known history of CAD or diabetes. Last labs on 06/23/2021 showed LDL 149. Triglycerides 218. He has not eaten yet today. Will have him repeat lipid profile at this time. He expresses concern about his cholesterol at this visit and would like it treated if needed. Orders: Orders ECG holter monitor 48 hour Today R00.2 - Palpitations Lipid Panel Today E78.5 - Hyperlipidemia, unspecified Coding Level of Care Code Est Pt Level 4 (28389) Diagnoses Palpitations R00.2 Chest discomfort R07.89 Hereditary hemochromatosis E83.110 Hemochromatosis type: hereditary Hyperlipemia E78.5 Time Spent (min) 28
[2023-01-04 13:02] VITALS: BP 110/60; PULSE 83; O2SAT 98; BMI 25.9
== END 2023-01-04 13:30 | disposition home or self-care (01) ==
PROVIDERS: PCP Student in an Organized Health Care Education/Training Program; Visit Provider Nurse Practitioner Family
DX: R00.2 Palpitations (principal); R07.89 Other chest pain; E83.110 Hereditary hemochromatosis; E78.5 Hyperlipidemia, unspecified
CPT/HCPCS: 99214

== ENCOUNTER 2023-01-04 12:56 | Outpatient (REF) | payer MEDICAID, SELFPAY ==
[2023-01-04 15:40] LABS: Cholesterol 224 mg/dL (<200); HDL Cholesterol 32 mg/dL (>40); LDL Cholesterol Calculated 165 mg/dL (<100); Triglycerides 139 mg/dL (<150)
== END 2023-01-04 12:57 | disposition home or self-care (01) ==
LOC: HO.LAB 12:56
PROVIDERS: Absent Provider Nurse Practitioner Family; PCP Student in an Organized Health Care Education/Training Program; Visit Provider Nurse Practitioner Family
DX: R00.2 Palpitations (principal); R07.89 Other chest pain; E83.110 Hereditary hemochromatosis; E78.5 Hyperlipidemia, unspecified
CPT/HCPCS: 36415; 80061; 99212

== ENCOUNTER 2023-01-20 14:54 | Outpatient (REF) | payer MEDICAID, SELFPAY ==
[2023-01-20 17:48] LABS: Vitamin B12 856 pg/mL (200-900)
[2023-01-21 08:12] LABS: ~Hepatitis C Antibody Nonreactive (Nonreactive)
[2023-01-21 08:27] LABS: Syphilis Screen Nonreactive (Nonreactive)
[2023-01-23 21:48] LABS: HIV RNA PCR Qn Copies Not Detected Copies/mL; HIV RNA PCR Qn Log Copies Not Detected Log cps/mL
== END 2023-01-20 14:55 | disposition home or self-care (01) ==
LOC: HO.HHCL 14:54
PROVIDERS: Visit Provider Student in an Organized Health Care Education/Training Program
DX: Z11.4 Encounter for screening for human immunodeficiency virus [HIV] (principal); R41.3 Other amnesia; Z72.51 High risk heterosexual behavior
CPT/HCPCS: 36415; 82607; 86780; 86803; 87536; 87900

== ENCOUNTER 2023-01-23 23:37 | Emergency (ER) | payer MEDICAID, SELFPAY ==
[2023-01-23 23:46] LABS: Glucose, Whole Blood 96 mg/dL (60-115)
[2023-01-23 23:55] VITALS: BP 136/76; BP 137/97; PULSE 65; PULSE 70; RESP 20; TEMP 36.4; O2SAT 96; BMI 26.0
--- NOTE | 2023-01-24 00:21 | MHC.EDTECH ---
pt requested I stop drawing blood, or stop attempting while I had needle in arm. First time said it hurt, second time said he was feeling sick and that they needed a break. Nurse aware.
[2023-01-24 00:44] LABS: Hematocrit 47.5 % (42.0-52.0); Hemoglobin 17.2 g/dl (14.0-18.0); Mean Corpuscular HGB Conc 36.2 g/dl (31.0-36.0); Mean Corpuscular Hemoglobin 32.2 pg (27.0-33.0); Mean Platelet Volume 9.5 fL (9.4-12.4); Platelet Count 222 X10*3/uL (160-400); Red Blood Count 5.34 X10*6/uL (4.60-5.80); Red Cell Distribution Width 11.7 % (11.0-16.0); White Blood Count 7.6 X10*3/uL (4.8-10.8)
[2023-01-24 00:57] LABS: Alanine Aminotransferase 18 U/L (0-40); Albumin Level 4.2 g/dL (3.5-5.0); Alkaline Phosphatase 79 U/L (39-117); Anion Gap 12 (12-20); Aspartate Amino Transferase 15 U/L (5-37); Bilirubin Total 0.6 mg/dL (0.0-1.0); Blood Urea Nitrogen 14 mg/dL (9-16); Calcium 9.3 mg/dL (8.4-10.2); Carbon Dioxide 26 mmol/L (22-29); Chloride 107 mmol/L (96-108); Creatinine Clr Calc Pharmacy 126.7; Estimated Glomerular Filt Rate > 60; Glucose Random 91 mg/dL (60-115); Potassium 3.6 mmol/L (3.3-5.1); Sodium 141 mmol/L (135-145); Total Protein 7.1 g/dL (6.5-8.0)
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
[2023-01-24 02:21] VITALS: BP 113/77; PULSE 72; RESP 14; TEMP 36.6; O2SAT 96
--- NOTE | 2023-01-24 02:25 | PC.NURSE ---
Reviewed discharge instruction with pt, pt verbalized understanding, Notified RN Rufino
== END 2023-01-24 02:30 | disposition home or self-care (01) ==
PROVIDERS: Emergency Provider Student in an Organized Health Care Education/Training Program; PCP Student in an Organized Health Care Education/Training Program
DX: R43.9 Unspecified disturbances of smell and taste (principal); F41.9 Anxiety disorder, unspecified; I10 Essential (primary) hypertension; E78.5 Hyperlipidemia, unspecified; Z86.718 Personal history of other venous thrombosis and embolism; Z79.899 Other long term (current) drug therapy; Z79.02 Long term (current) use of antithrombotics/antiplatelets
CPT/HCPCS: 36415; 80053; 82947; 85027; 99283; 99284

== ENCOUNTER → 2023-02-15 11:18 | Outpatient (REF) | payer MEDICAID, SELFPAY ==
--- NOTE | 2023-02-15 11:21 | HM_ITS ---
Conclusion: 1. Patient was monitored for total period of 1 day and 23 hours 2. Baseline was normal sinus with average heart of 67 beats per minute 3. No significant pauses or arrhythmias detected 4. No patient reported events MTDD
== END ==
LOC: HO.CARD 11:18
PROVIDERS: PCP Student in an Organized Health Care Education/Training Program; Visit Provider Nurse Practitioner Family
DX: R00.2 Palpitations (principal)
CPT/HCPCS: 93225

== ENCOUNTER → 2023-02-15 11:21 | Outpatient (BNV) | payer MEDICAID, SELFPAY | PROVIDERS: PCP Student in an Organized Health Care Education/Training Program; Visit Provider Internal Medicine Cardiovascular Disease | DX: R00.2 Palpitations (principal) | CPT/HCPCS: 93227 ==

== ENCOUNTER 2023-03-02 13:37 | Outpatient (REF) | payer MEDICAID, SELFPAY | END 2023-03-02 13:38 | disposition home or self-care (01) | LOC: HO.CT 13:37 | PROVIDERS: PCP Student in an Organized Health Care Education/Training Program; Visit Provider Nurse Practitioner Family | DX: Z13.89 Encounter for screening for other disorder (principal) ==

== ENCOUNTER 2023-03-11 18:44 | Emergency (ER) | payer MEDICAID, SELFPAY ==
--- NOTE | 2023-03-11 | ECG_ITS ---
Test Reason : PALPITATIONS Blood Pressure : / mmHG Vent. Rate : 116 BPM Atrial Rate : 116 BPM P-R Int : 132 ms QRS Dur : 076 ms QT Int : 304 ms P-R-T Axes : 067 068 038 degrees QTc Int : 422 ms Sinus tachycardia Possible Left atrial enlargement Borderline ECG When compared with ECG of 23-OCT-2022 20:16, Vent. rate has increased BY 46 BPM Referred By: Reema Ceballos Electronically Signed By:TERRY FRANK MD
[2023-03-11 18:55] VITALS: BP 153/103; PULSE 108; O2SAT 98
--- NOTE | 2023-03-11 18:57 | ED.GENADULT ---
HPI - General Adult General Chief complaint: Arrhythmia/Palpitations Stated complaint: DIFF BREATHING, ABD PAIN PER EMS Time Seen by Provider: 03/11/23 18:44 Source: patient Mode of arrival: ambulatory Limitations: no limitations History of Present Illness HPI narrative: patient comes to the emergency room complaining of palpitations that started around 18:00. Patient states that he was sitting and then with sudden movement, he started having palpitations. Patient denies chest pain or shortness of breath. No syncope or near-syncope. Related Data Home Medications Medication Instructions Recorded Confirmed linaclotide 72 mcg capsule 72 mcg PO QAM 07/15/22 01/04/23 (Linzess) Previous Rx's Medication Instructions Recorded pantoprazole 40 mg tablet,delayed 40 mg PO DAILY #30 tabs 07/15/22 release cholecalciferol (vitamin D3) 50 50 mcg PO DAILY #90 caps 09/16/22 mcg (2,000 unit) capsule rosuvastatin 10 mg tablet 10 mg PO DAILY #30 tabs 01/14/23 ondansetron 4 mg disintegrating 4 mg PO Q6H PRN nausea and 03/12/23 tablet vomiting #10 tabs Allergies Allergy/AdvReac Type Severity Reaction Status Date / Time tadalafil [From Cialis] Allergy Severe Unknown Verified 01/26/23 15:50 metronidazole [From Flagyl] AdvReac Unknown Nausea, Verified 01/26/23 15:50 sweats, Diarrhea Review of Systems Review of Systems: Constitutional : No Weight loss, No Fever, No Chills, No Night Sweats, No Fatigue, No Malaise ENT/Mouth : No Hearing loss, No Ear Pain, No Nasal Congestion, No Sinus Pain, No Hoarseness, No sore throat, No Rhinorrhea, No Swallowing Difficulty Eyes: No Eye Pain, No Swelling, No Redness, No Foreign Body, No Discharge, No Vision Changes Cardiovascular : No Chest Pain, No SOB, No Dyspnea on Exertion, No Orthopnea, No Edema, complaining ofPalpitations Respiratory : No Cough, No Sputum, No Wheezing, No Smoke Exposure, No Dyspnea Gastrointestinal : No Nausea, No Vomiting, No Diarrhea, No Constipation, No abdominal Pain, No Hematochezia, No Melena Genitourinary : no irregular bleeding, No Dysuria, No Urinary Frequency, No Hematuria, No Urinary Incontinence, No Urgency, No Flank Pain, No Urinary Flow Changes, No Hesitancy Musculoskeletal : No joint pain, No Myalgias, No Joint Swelling Skin : No Skin Lesions, No rash Neuro : No Weakness, No Numbness, No Paresthesias, No Loss of Consciousness, No Dizziness, No Headache Psych : No Anxiety/Panic, No Depression, No SI/HI/AH/VH, No Social Issues, Heme/Lymph: No Bruising, No Bleeding,No Lymphadenopathy Endocrine : No Polyuria, No Polydipsia, No Temperature Intolerance PMFSH Past Medical History Onset Date is defined in the Problem List Problems that require an onset date and time if occurred within 24 hrs of arrival to the ED Aortic Dissection and Rupture; Neurologic impairment; Cardiopulmonary Arrest; Endotracheal Intubation; Insertion or Replacement of Mechanical Circulatory Assist Device Medical History Thrombosed external hemorrhoid Autosomal dominant hereditary hemochromatosis Mild intermittent allergic 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 Mood disorder Dizziness Paresthesia Thyroid nodule Anxiety HTN (hypertension) Surgical History S/P fine needle aspiration Hx of wisdom tooth extraction Family History Family History Father CLL (chronic lymphocytic leukemia) Diabetes Paternal Grandfather Diabetes Maternal Grandmother H/O heart bypass surgery Mother Drug abuse Social History Social History Household Members: None Housing: Apartment Are you a primary primary care physician to a significant other at home: No Do you presently have visiting nurse or other home services: No Alcohol intake: never Patient Tobacco Use Status: Never used Tobacco Smoked in Last 30 Days: No Use of substances other than those prescribed or required for medical reasons: No Advance Directives: No Advance Directives Information Provided: No service: No Current occupational status: unemployed Physical Exam ED Vital Signs: Vital Signs - 24 hr 03/11/23 19:28 03/11/23 21:51 03/12/23 03:13 Temperature 97.0 F Pulse Rate 104 H 129 H 96 Respiratory Rate 20 20 20 Blood Pressure 137/100 H 155/93 H 143/91 H Pulse Oximetry 98 97 96 Oxygen Delivery Method Room Air Room Air Room Air BMI result Body Mass Index 26.2 Const Other: Appearance: Alert. Oriented X3. No acute distress. Well-appearing Eyes: Pupils equal, round and reactive to light. ENT: Pharynx normal. Neck: Normal inspection. Neck supple. No lymph nodes noted. No crepitus CVS: Tachycardic, regular rhythm. Pulses normal. Normal S1 and S2 Respiratory: No respiratory distress. Breath sounds normal. No Wheezing. No rales Abdomen: Soft and nontender. No rigidity. No distention. Skin: Skin warm and dry. Normal skin color. Normal skin turgor. Extremities: No lower extremity edema. No Lacerations. No Rash Neuro: Oriented X 3. No motor deficit. No sensory deficit. Moving all extremities. No slurred speech. CN 2 through 12 grossly intact Psych: calm, cooperative, normal affect Course Course Course Narrative: This is an RME: Additional HPI, ROS, PE not included below will be deferred to primary provider. Patient presents with epigastric pain status post eating pizza became nauseous and heart rate went up after eating pizza and becoming nauseous. Plan labs Medications Administered Discontinued Medications Generic Name Dose Route Start Last Admin Trade Name Freq PRN Reason Stop Dose Admin Sodium Chloride 1,000 mls @ 999 mls/hr 03/12/23 01:17 03/12/23 02:51 Ns IVCONT 03/12/23 02:17 Infused .Q1H1M ONE Infusion Iohexol 65 ml 03/12/23 01:45 03/12/23 01:46 Iohexol 350 Mg/Ml 100 Ml Infus..Btl IV 03/12/23 01:46 65 ml ONCE ONE Administration Medical Decision Making Medical Decision Making [facility] Narrative: -patient has history of DVT, patient is tachycardic, we will go ahead and get a CT scan. -my interpretation of labs: Normal white blood cell count, hemoglobin 18.7, patient has history of hemochromatosis, chemistry negative, troponin negative -CT scan for pulmonary embolism negative. -patient receive IV fluids, heart rate back to normal. Patient likely dehydrated, and possibly having a viral syndrome. Differential Diagnosis Differential Diagnoses: The differential diagnosis associated with the presentation includes (Viral syndrome, dehydration,, influenza, RSV, COVID) Admission/Observation Consideration of admission/observation: Escalation of care including admission/observation considered (Given patient's initial vitals, admission was considered.) Lab Data [facility] Lab Attestation statement: I reviewed the patient's lab results. 03/11/23 19:24 03/11/23 19:24 Labs: Lab Results 03/11/23 03/11/23 03/11/23 Range/Units 19:24 21:58 22:34 WBC 7.8 (4.8-10.8) X10*3/uL RBC 5.83 H (4.60-5.80) X10*6/uL Hgb 18.7 H (14.0-18.0) g/dl Hct 51.8 (42.0-52.0) % MCV 88.9 (80.0-98.0) fL MCH 32.1 (27.0-33.0) pg MCHC 36.1 H (31.0-36.0) g/dl RDW 11.9 (11.0-16.0) % Plt Count 250 (160-400) X10*3/uL MPV 9.4 (9.4-12.4) fL Immature Gran % (Auto) 0.3 (0.0-0.4) % Neut % (Auto) 81.5 H (45-73) % Lymph % (Auto) 12.5 L (20-40) % [place] % (Auto) 3.9 (2-11) % Eos % (Auto) 1.4 (0-4) % Baso % (Auto) 0.4 (0-2) % Lymph # (Auto) 1.0 L (1.2-4.9) X10*3/uL [place] # (Auto) 0.3 (0.1-1.2) X10*3/uL Eos # (Auto) 0.1 (0.0-0.4) X10*3/uL Baso # (Auto) 0.0 (0.0-0.2) X10*3/uL Abs Immat Gran (auto) 0.02 (0.00-0.03) X10*3/uL Absolute Neuts (auto) 6.3 (2.0-8.3) x10*3/uL Absolute Nucleated RBC 0.000 (0.0-0.012) X10*3/uL Nucleated RBC % (auto) 0.0 (0.0-0.2) /100WBC D-Dimer High Sensitivty NG/ML Sodium 140 (135-145) mmol/L Potassium 3.4 (3.3-5.1) mmol/L Chloride 102 (96-108) mmol/L Carbon Dioxide 29 (22-29) mmol/L Anion Gap 12 (12-20) BUN 13 (9-16) mg/dL Creatinine 1.00 (0.5-1.4) mg/dL Estim Creat Clear Calc 107.7 Estimated GFR > 60 Random Glucose 153 H (60-115) mg/dL Calcium 10.2 D (8.4-10.2) mg/dL Magnesium 2.2 (1.6-2.6) mg/dL Total Bilirubin 0.9 (0.0-1.0) mg/dL AST 16 (5-37) U/L ALT 19 (0-40) U/L Alkaline Phosphatase 91 (39-117) U/L Troponin I High Sens (<3.5-35.0) ng/L Total Protein 8.1 H (6.5-8.0) g/dL Albumin 4.6 (3.5-5.0) g/dL Lipase 35 (8-78) U/L Urine Color Yellow Urine Appearance Clear Urine pH 7.5 (5.0-9.0) Ur Specific [place] 1.010 (1.005-1.025) Urine Protein Negative (Neg-Trace) mg/dL Urine Glucose (UA) 250 H (Negative) mg/dL Urine Ketones Negative (Negative) mg/dL Urine Blood Negative (Negative) Urine Nitrite Negative (Negative) Ur Leukocyte Esterase Negative (Negative) Influenza Type A (PCR) NEGATIVE (Negative) Influenza Type B (PCR) NEGATIVE (Negative) RSV RNA Qual (PCR) NEGATIVE (Negative) SARS-CoV-2 RNA (RT-PCR) NEGATIVE (Negative) 03/12/23 03/12/23 Range/Units 01:32 01:45 WBC (4.8-10.8) X10*3/uL RBC (4.60-5.80) X10*6/uL Hgb (14.0-18.0) g/dl Hct (42.0-52.0) % MCV (80.0-98.0) fL MCH (27.0-33.0) pg MCHC (31.0-36.0) g/dl RDW (11.0-16.0) % Plt Count (160-400) X10*3/uL MPV (9.4-12.4) fL Immature Gran % (Auto) (0.0-0.4) % Neut % (Auto) (45-73) % Lymph % (Auto) (20-40) % [place] % (Auto) (2-11) % Eos % (Auto) (0-4) % Baso % (Auto) (0-2) % Lymph # (Auto) (1.2-4.9) X10*3/uL [place] # (Auto) (0.1-1.2) X10*3/uL Eos # (Auto) (0.0-0.4) X10*3/uL Baso # (Auto) (0.0-0.2) X10*3/uL Abs Immat Gran (auto) (0.00-0.03) X10*3/uL Absolute Neuts (auto) (2.0-8.3) x10*3/uL Absolute Nucleated RBC (0.0-0.012) X10*3/uL Nucleated RBC % (auto) (0.0-0.2) /100WBC D-Dimer High Sensitivty < 150 NG/ML Sodium (135-145) mmol/L Potassium (3.3-5.1) mmol/L Chloride (96-108) mmol/L Carbon Dioxide (22-29) mmol/L Anion Gap (12-20) BUN (9-16) mg/dL Creatinine (0.5-1.4) mg/dL Estim Creat Clear Calc Estimated GFR Random Glucose (60-115) mg/dL Calcium (8.4-10.2) mg/dL Magnesium (1.6-2.6) mg/dL Total Bilirubin (0.0-1.0) mg/dL AST (5-37) U/L ALT (0-40) U/L Alkaline Phosphatase (39-117) U/L Troponin I High Sens < 2.7 (<3.5-35.0) ng/L Total Protein (6.5-8.0) g/dL Albumin (3.5-5.0) g/dL Lipase (8-78) U/L Urine Color Urine Appearance Urine pH (5.0-9.0) Ur Specific [place] (1.005-1.025) Urine Protein (Neg-Trace) mg/dL Urine Glucose (UA) (Negative) mg/dL Urine Ketones (Negative) mg/dL Urine Blood (Negative) Urine Nitrite (Negative) Ur Leukocyte Esterase (Negative) Influenza Type A (PCR) (Negative) Influenza Type B (PCR) (Negative) RSV RNA Qual (PCR) (Negative) SARS-CoV-2 RNA (RT-PCR) (Negative) Critical Care Time Critical Care Time Critical Care Time: Yes Total Critical Care Time: 45 Attestation: I have personally provided critical care time. Time includes review of lab data, radiology results, discussion with consultants, and monitoring for potential decompensation. Intervention performed as documented. Discharge Plan Discharge Clinical Impression: Acute dehydration, Palpitations Patient Disposition: Home, Self-Care Instructions: Heart Palpitations (ED), Dehydration (ED) Additional Instructions: Please follow-up with your primary care physician tomorrow. If you have any worsening or new symptoms, please return to the emergency room or call 911 Prescriptions: New ondansetron 4 mg tablet,disintegrating 4 mg PO Q6H PRN (Reason: nausea and vomiting) Qty: 10 0RF No Action cholecalciferol (vitamin D3) 50 mcg (2,000 unit) capsule 50 mcg PO DAILY Qty: 90 3RF rosuvastatin 10 mg tablet 10 mg PO DAILY Qty: 30 5RF Linzess 72 mcg capsule 72 mcg PO QAM pantoprazole 40 mg tablet,delayed release (DR/EC) 40 mg PO DAILY Qty: 30 2RF Rx Instructions: take one tablet half an hour before breakfast
[2023-03-11 19:28] VITALS: BP 137/100; PULSE 104; RESP 20; TEMP 36.1; O2SAT 98; BMI 26.2
[2023-03-11 21:51] VITALS: BP 155/93; PULSE 129; RESP 20; O2SAT 97
[2023-03-12 03:13] VITALS: BP 143/91; PULSE 96; RESP 20; O2SAT 96
== END 2023-03-12 04:07 | disposition home or self-care (01) ==
PROVIDERS: Emergency Provider Emergency Medicine
DX: E86.0 Dehydration (principal); R06.02 Shortness of breath; R00.2 Palpitations; Z20.822 Contact with and (suspected) exposure to COVID-19; Z20.828 Contact with and (suspected) exposure to other viral communicable diseases; Z79.899 Other long term (current) drug therapy
CPT/HCPCS: 0241U; 36415; 71275; 80053; 81003; 83690; 83735; 84484; 85025; 85379; 93005; 96360; 99285; Q9967

== ENCOUNTER → 2023-03-11 21:53 | Outpatient (BNV) | payer MEDICAID, SELFPAY | PROVIDERS: Emergency Provider Emergency Medicine; Visit Provider Internal Medicine Cardiovascular Disease | DX: R00.0 Tachycardia, unspecified (principal) | CPT/HCPCS: 93010 ==

== ENCOUNTER → 2023-03-12 01:12 | Outpatient (BNV) | payer MEDICAID, SELFPAY | PROVIDERS: Emergency Provider Emergency Medicine; Visit Provider Internal Medicine Cardiovascular Disease | DX: R00.0 Tachycardia, unspecified (principal) | CPT/HCPCS: 93010 ==

== ENCOUNTER 2023-03-18 14:43 | Outpatient (REF) | payer MEDICAID, SELFPAY ==
[2023-03-18 16:28] LABS: Estimated Average Glucose 85 mg/dL; Hemoglobin A1c % 4.6 % (<6.0)
[2023-03-18 16:48] LABS: Alanine Aminotransferase 17 U/L (0-40); Albumin Level 4.4 g/dL (3.5-5.0); Alkaline Phosphatase 91 U/L (39-117); Anion Gap 11 (12-20); Aspartate Amino Transferase 14 U/L (5-37); Bilirubin Total 0.5 mg/dL (0.0-1.0); Blood Urea Nitrogen 15 mg/dL (9-16); Calcium 9.8 mg/dL (8.4-10.2); Carbon Dioxide 25 mmol/L (22-29); Chloride 107 mmol/L (96-108); Estimated Glomerular Filt Rate > 60; Glucose Random 98 mg/dL (60-115); Potassium 3.6 mmol/L (3.3-5.1); Sodium 139 mmol/L (135-145); Total Protein 7.8 g/dL (6.5-8.0)
[2023-03-18 16:53] LABS: Ferritin 278 ng/mL (20-250)
== END 2023-03-18 14:44 | disposition home or self-care (01) ==
LOC: HO.HHCL 14:43
PROVIDERS: Visit Provider General Practice
DX: E83.119 Hemochromatosis, unspecified (principal); I10 Essential (primary) hypertension
CPT/HCPCS: 36415; 80053; 82728; 83036

== ENCOUNTER 2023-03-19 23:34 | Emergency (ER) | payer MEDICAID, SELFPAY ==
--- NOTE | 2023-03-19 | ECG_ITS ---
Test Reason : HEART RACING Blood Pressure : / mmHG Vent. Rate : 091 BPM Atrial Rate : 091 BPM P-R Int : 144 ms QRS Dur : 076 ms QT Int : 346 ms P-R-T Axes : 073 072 050 degrees QTc Int : 425 ms Normal sinus rhythm with sinus arrhythmia Normal ECG When compared with ECG of 12-MAR-2023 01:55, No significant change was found Referred By: Generic ED Physician Electronically Signed By:TERRY FRANK MD
[2023-03-19 23:45] VITALS: BP 166/98; PULSE 128; O2SAT 98
[2023-03-19 23:47] VITALS: BP 168/97; PULSE 103; RESP 20; TEMP 36.5; O2SAT 98; BMI 26.2
--- NOTE | 2023-03-20 00:06 | MHC.EDTECH ---
Patient brought into triage area,EKG taken per order and signed by provider,labs obtained and sent to lab.
[2023-03-20 00:14] LABS: MANUAL DIFF FLAG NO
[2023-03-20 00:15] LABS: Basophils Absolute Auto 0.1 X10*3/uL (0.0-0.2); Basophils Percent Auto 0.7 % (0-2); Eosinophils Absolute Auto 0.2 X10*3/uL (0.0-0.4); Hematocrit 48.4 % (42.0-52.0); Hemoglobin 17.6 g/dl (14.0-18.0); Imm Gran Abs Auto 0.02 X10*3/uL (0.00-0.03); Imm Gran Pct Auto 0.3 % (0.0-0.4); Lymphocytes Absolute Auto 2.1 X10*3/uL (1.2-4.9); Lymphocytes Percent Auto 28.3 % (20-40); Mean Corpuscular HGB Conc 36.4 g/dl (31.0-36.0); Mean Corpuscular Hemoglobin 32.1 pg (27.0-33.0); Mean Corpuscular Volume 88.3 fL (80.0-98.0); Mean Platelet Volume 9.3 fL (9.4-12.4); Monocytes Absolute Auto 0.5 X10*3/uL (0.1-1.2); Monocytes Percent Auto 6.3 % (2-11); Neutrophils Absolute Auto 4.6 x10*3/uL (2.0-8.3); Neutrophils Percent Auto 62.4 % (45-73); Platelet Count 267 X10*3/uL (160-400); Red Blood Count 5.48 X10*6/uL (4.60-5.80); Red Cell Distribution Width 11.6 % (11.0-16.0); White Blood Count 7.4 X10*3/uL (4.8-10.8)
[2023-03-20 00:27] LABS: Anion Gap 15 (12-20)
[2023-03-20 00:33] LABS: Alanine Aminotransferase 18 U/L (0-40); Albumin Level 4.3 g/dL (3.5-5.0); Alkaline Phosphatase 90 U/L (39-117); Aspartate Amino Transferase 15 U/L (5-37); Bilirubin Direct 0.2 mg/dL (0.0-0.5); Bilirubin Total 0.5 mg/dL (0.0-1.0); Blood Urea Nitrogen 12 mg/dL (9-16); Calcium 9.8 mg/dL (8.4-10.2); Carbon Dioxide 26 mmol/L (22-29); Chloride 104 mmol/L (96-108); Creatinine Clr Calc Pharmacy 97.9; Estimated Glomerular Filt Rate > 60; Glucose Random 99 mg/dL (60-115); Potassium 3.6 mmol/L (3.3-5.1); Sodium 141 mmol/L (135-145); Total Protein 7.6 g/dL (6.5-8.0)
[2023-03-20 02:43] VITALS: BP 147/97; PULSE 84; RESP 18; TEMP 36.4; O2SAT 97
[2023-03-20 04:13] VITALS: BP 153/86; PULSE 80; RESP 17; TEMP 36.7; O2SAT 96
--- NOTE | 2023-03-20 06:56 | ED.GENADULT ---
HPI - General Adult General Chief complaint: General Medical Stated complaint: Elevated heart rate/hypertension Time Seen by Provider: 03/20/23 06:56 History of Present Illness HPI narrative: The patient is a 37-year-old male with a history of hemochromatosis. He says that he has been having sleeping problems recently so he has been trying to change his sleep schedule. He went to sleep at 05:30 yesterday afternoon. He woke at around 11 30 last night with a sense of pounding in his chest and he called an ambulance and was brought to the hospital. He has had a long wait to be seen by a provider. He has not had a recurrence of the palpitations since arriving at the hospital but he does have migratory chest symptoms and arm symptoms. The patient does not take any medications. He has a nonsmoker and does not use alcohol. The patient lives alone. Patient says that he does not work because of his disability from hemochromatosis. Related Data Home Medications Medication Instructions Recorded Confirmed linaclotide 72 mcg capsule 72 mcg PO QAM 07/15/22 01/04/23 (Linzess) Previous Rx's Medication Instructions Recorded pantoprazole 40 mg tablet,delayed 40 mg PO DAILY #30 tabs 07/15/22 release cholecalciferol (vitamin D3) 50 50 mcg PO DAILY #90 caps 09/16/22 mcg (2,000 unit) capsule rosuvastatin 10 mg tablet 10 mg PO DAILY #30 tabs 01/14/23 ondansetron 4 mg disintegrating 4 mg PO Q6H PRN nausea and 03/12/23 tablet vomiting #10 tabs Allergies Allergy/AdvReac Type Severity Reaction Status Date / Time tadalafil [From Cialis] Allergy Severe Unknown Verified 03/19/23 23:50 metronidazole [From Flagyl] AdvReac Unknown Nausea, Verified 03/19/23 23:50 sweats, Diarrhea Review of Systems Review of Systems: Yes all other systems are reviewed and are negative PMFSH Past Medical History Onset Date is defined in the Problem List Problems that require an onset date and time if occurred within 24 hrs of arrival to the ED Aortic Dissection and Rupture; Neurologic impairment; Cardiopulmonary Arrest; Endotracheal Intubation; Insertion or Replacement of Mechanical Circulatory Assist Device Medical History Thrombosed external hemorrhoid Autosomal dominant hereditary hemochromatosis Mild intermittent allergic 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 Mood disorder Dizziness Paresthesia Thyroid nodule Anxiety HTN (hypertension) Surgical History S/P fine needle aspiration Hx of wisdom tooth extraction Family History Family History Father CLL (chronic lymphocytic leukemia) Diabetes Paternal Grandfather Diabetes Maternal Grandmother H/O heart bypass surgery Mother Drug abuse Social History Social History Household Members: None Housing: Apartment Are you a primary overnight caregiver to a significant other at home: No Do you presently have visiting nurse or other home services: No Alcohol intake: never Patient Tobacco Use Status: Never used Tobacco Advance Directives: No Advance Directives Information Provided: No service: No Current occupational status: unemployed Physical Exam ED Vital Signs: Vital Signs - 24 hr 03/19/23 23:47 03/20/23 02:43 03/20/23 04:13 Temperature 97.7 F 97.5 F 98.0 F Pulse Rate 103 H 84 80 Respiratory Rate 20 18 17 Blood Pressure 168/97 H 147/97 H 153/86 H Pulse Oximetry 98 97 96 Oxygen Delivery Method Room Air Room Air Room Air BMI result Body Mass Index 26.2 Const Other: The patient is awake and alert. He does not appear in distress. HENMT Other: Face is symmetrical. Mucous membranes moist. Eyes Other: Pupils are round equal, conjunctivae clear Neck Other: No JVD Resp Effort & Inspection: normal respiratory effort Auscultation: clear to auscultation bilaterally Cardio Rate: regular rate Rhythm: regular rhythm Heart sounds: S1 normal heart sound present and S2 normal heart sound present GI Other: Abdomen is soft. Some mild diffuse tenderness without focal rebound or guarding. Skin Other: Pale and dry Neuro Other: Awake and alert. Speech clear, face symmetrical, moving extremities normally. Grossly neurologically intact. Extrem Other: No peripheral edema. Medical Decision Making Medical Decision Making MDM Narrative: The patient is a 37-year-old male who woke with palpitations at home and called an ambulance and was brought to the hospital. He has had a long wait in the emergency room. His EKG is normal. He looks well. Basic labs are unremarkable. He requested that thyroid studies be sent. I added on a TSH. He looks entirely well. He says that he has worn a wearable quality assurance monitor final in the past without any particular diagnosis being made. I think he may be discharged and follow up with his PCP. He then requested something to help him sleep. I suggested melatonin or Benadryl. He says that both of these medications do not work for him and that they wrapped him up. I recommended he follow-up with his regular doctor. Lab Data 03/20/23 00:09 03/20/23 00:09 Labs: Lab Results 03/20/23 Range/Units 00:09 WBC 7.4 (4.8-10.8) X10*3/uL RBC 5.48 (4.60-5.80) X10*6/uL Hgb 17.6 (14.0-18.0) g/dl Hct 48.4 (42.0-52.0) % MCV 88.3 (80.0-98.0) fL MCH 32.1 (27.0-33.0) pg MCHC 36.4 H (31.0-36.0) g/dl RDW 11.6 (11.0-16.0) % Plt Count 267 (160-400) X10*3/uL MPV 9.3 L (9.4-12.4) fL Immature Gran % (Auto) 0.3 (0.0-0.4) % Neut % (Auto) 62.4 (45-73) % Lymph % (Auto) 28.3 (20-40) % [place] % (Auto) 6.3 (2-11) % Eos % (Auto) 2.0 (0-4) % Baso % (Auto) 0.7 (0-2) % Lymph # (Auto) 2.1 (1.2-4.9) X10*3/uL [place] # (Auto) 0.5 (0.1-1.2) X10*3/uL Eos # (Auto) 0.2 (0.0-0.4) X10*3/uL Baso # (Auto) 0.1 (0.0-0.2) X10*3/uL Abs Immat Gran (auto) 0.02 (0.00-0.03) X10*3/uL Absolute Neuts (auto) 4.6 (2.0-8.3) x10*3/uL Absolute Nucleated RBC 0.000 (0.0-0.012) X10*3/uL Nucleated RBC % (auto) 0.0 (0.0-0.2) /100WBC Sodium 141 (135-145) mmol/L Potassium 3.6 (3.3-5.1) mmol/L Chloride 104 (96-108) mmol/L Carbon Dioxide 26 (22-29) mmol/L Anion Gap 15 (12-20) BUN 12 (9-16) mg/dL Creatinine 1.10 (0.5-1.4) mg/dL Estim Creat Clear Calc 97.9 Estimated GFR > 60 Random Glucose 99 (60-115) mg/dL Calcium 9.8 (8.4-10.2) mg/dL Total Bilirubin 0.5 (0.0-1.0) mg/dL Direct Bilirubin 0.2 (0.0-0.5) mg/dL AST 15 (5-37) U/L ALT 18 (0-40) U/L Alkaline Phosphatase 90 (39-117) U/L Total Protein 7.6 (6.5-8.0) g/dL Albumin 4.3 (3.5-5.0) g/dL Independent Interpretation I performed an independent interpretation of an: EKG Interpretation: EKG at 00:04 shows normal sinus rhythm with a sinus arrhythmia at 91 beats per minute. No change from previous EKG. Discharge Plan Discharge Clinical Impression: Palpitations Patient Disposition: Home, Self-Care Additional Instructions: Your testing in the emergency room today is reassuring for any acutely dangerous process. Please plan on following up soon with your regular doctor. Return to the emergency room if significantly worse. Prescriptions: No Action cholecalciferol (vitamin D3) 50 mcg (2,000 unit) capsule 50 mcg PO DAILY Qty: 90 3RF rosuvastatin 10 mg tablet 10 mg PO DAILY Qty: 30 5RF ondansetron 4 mg tablet,disintegrating 4 mg PO Q6H PRN (Reason: nausea and vomiting) Qty: 10 0RF Linzess 72 mcg capsule 72 mcg PO QAM pantoprazole 40 mg tablet,delayed release (DR/EC) 40 mg PO DAILY Qty: 30 2RF Rx Instructions: take one tablet half an hour before breakfast Referrals: Cuca Jones, [facility] [Nurse Practitioner] -
[2023-03-20 08:15] LABS: Thyroid Stimulating Hormone 3.36 uIU/mL (0.32-4.0)
[2023-03-20 09:33] VITALS: BP 136/87; PULSE 68; RESP 16; TEMP 36.9; O2SAT 96
== END 2023-03-20 09:34 | disposition home or self-care (01) ==
PROVIDERS: Emergency Provider Emergency Medicine; PCP General Practice
DX: R00.2 Palpitations (principal); I10 Essential (primary) hypertension; F39 Unspecified mood [affective] disorder; J45.909 Unspecified asthma, uncomplicated
CPT/HCPCS: 36415; 80048; 80076; 84443; 85025; 93005; 99283; 99284

== ENCOUNTER → 2023-03-19 | Outpatient (BNV) | payer MEDICAID, SELFPAY | PROVIDERS: Emergency Provider Emergency Medicine; PCP General Practice; Visit Provider Internal Medicine Cardiovascular Disease | DX: R00.0 Tachycardia, unspecified (principal) | CPT/HCPCS: 93010 ==

== ENCOUNTER 2023-03-21 22:13 | Emergency (ER) | payer MEDICAID, SELFPAY ==
--- NOTE | 2023-03-21 | ECG_ITS ---
Test Reason : tachycardia Blood Pressure : / mmHG Vent. Rate : 101 BPM Atrial Rate : 101 BPM P-R Int : 140 ms QRS Dur : 078 ms QT Int : 342 ms P-R-T Axes : 066 065 048 degrees QTc Int : 443 ms Sinus tachycardia Otherwise normal ECG When compared with ECG of 20-MAR-2023 00:04, No significant change was found Referred By: Generic ED Physician Electronically Signed By:CRUZ GARCIA
[2023-03-21 22:21] VITALS: BP 159/113; PULSE 110; O2SAT 98
[2023-03-21 22:33] VITALS: BP 157/104; PULSE 102; RESP 15; TEMP 36.4; O2SAT 97; BMI 26.3
[2023-03-21 23:00] LABS: MANUAL DIFF FLAG NO
[2023-03-21 23:01] LABS: Appearance Urine Clear; Basophils Absolute Auto 0.1 X10*3/uL (0.0-0.2); Basophils Percent Auto 0.8 % (0-2); Color Urine Yellow; Eosinophils Absolute Auto 0.1 X10*3/uL (0.0-0.4); Eosinophils Percent Auto 1.2 % (0-4); Glucose Urine UA Negative (Negative); Hematocrit 50.4 % (42.0-52.0); Hemoglobin 18.1 g/dl (14.0-18.0); Imm Gran Abs Auto 0.01 X10*3/uL (0.00-0.03); Imm Gran Pct Auto 0.2 % (0.0-0.4); Leukocyte Esterase Urine Negative (Negative); Lymphocytes Absolute Auto 1.3 X10*3/uL (1.2-4.9); Lymphocytes Percent Auto 19.7 % (20-40); Mean Corpuscular HGB Conc 35.9 g/dl (31.0-36.0); Mean Corpuscular Hemoglobin 31.8 pg (27.0-33.0); Mean Corpuscular Volume 88.4 fL (80.0-98.0); Mean Platelet Volume 9.1 fL (9.4-12.4); Monocytes Absolute Auto 0.5 X10*3/uL (0.1-1.2); Monocytes Percent Auto 7.4 % (2-11); Neutrophils Absolute Auto 4.7 x10*3/uL (2.0-8.3); Neutrophils Percent Auto 70.7 % (45-73); Nitrite Urine Negative (Negative); PH 7.5 (5.0-9.0); Platelet Count 272 X10*3/uL (160-400); Red Cell Distribution Width 11.6 % (11.0-16.0); Urine Blood Negative (Negative); Urine Ketones Negative (Negative); Urine Protein Negative (Neg-Trace); White Blood Count 6.7 X10*3/uL (4.8-10.8)
[2023-03-21 23:15] LABS: Alanine Aminotransferase 18 U/L (0-40); Albumin Level 4.4 g/dL (3.5-5.0); Alkaline Phosphatase 83 U/L (39-117); Anion Gap 12 (12-20); Aspartate Amino Transferase 14 U/L (5-37); Bilirubin Direct 0.2 mg/dL (0.0-0.5); Bilirubin Total 0.6 mg/dL (0.0-1.0); Blood Urea Nitrogen 13 mg/dL (9-16); Calcium 9.7 mg/dL (8.4-10.2); Carbon Dioxide 26 mmol/L (22-29); Chloride 106 mmol/L (96-108); Creatinine Clr Calc Pharmacy 99.7; Estimated Glomerular Filt Rate > 60; Glucose Random 142 mg/dL (60-115); Lipase 23 U/L (8-78); Potassium 3.5 mmol/L (3.3-5.1); Sodium 140 mmol/L (135-145); Total Protein 7.6 g/dL (6.5-8.0)
[2023-03-21 23:23] LABS: Troponin-I High Sensitivity < 2.7 ng/L (<3.5-35.0)
[2023-03-21 23:35] VITALS: BP 139/94; PULSE 83; RESP 16; TEMP 37.1; O2SAT 96
--- NOTE | 2023-03-21 23:50 | PC.NURSE ---
This RN took over pt care @ 2340 Pt sitting in bed on his phone, no signs of distress. Plan of care ongoing.
--- NOTE | 2023-03-22 00:09 | ED_ITS ---
HPI - General Adult General Chief complaint: General Medical Stated complaint: Tachycardia, nausea Time Seen by Provider: 03/22/23 00:09 History of Present Illness HPI narrative: The patient is a 37-year-old male who comes to the emergency room by ambulance after having a sense of severe palpitations he said that he was washing clothes in a bathtub when he felt that his heart rate went to the 180s. He also felt nauseated and had pains in his abdomen. He also says that this morning he took a rosuvastatin and then he had a lot of body pains. Related Data Home Medications Medication Instructions Recorded Confirmed linaclotide 72 mcg capsule 72 mcg PO QAM 07/15/22 01/04/23 (Linzess) Previous Rx's Medication Instructions Recorded pantoprazole 40 mg tablet,delayed 40 mg PO DAILY #30 tabs 07/15/22 release cholecalciferol (vitamin D3) 50 50 mcg PO DAILY #90 caps 09/16/22 mcg (2,000 unit) capsule rosuvastatin 10 mg tablet 10 mg PO DAILY #30 tabs 01/14/23 ondansetron 4 mg disintegrating 4 mg PO Q6H PRN nausea and 03/12/23 tablet vomiting #10 tabs potassium chloride 10 mEq 10 meq PO BID #14 caps 03/22/23 capsule,extended release Allergies Allergy/AdvReac Type Severity Reaction Status Date / Time tadalafil [From Cialis] Allergy Severe Unknown Verified 03/19/23 23:50 [id number] Reductase Allergy Palpitation Verified 03/21/23 22:37 Inhibitor s metronidazole [From Flagyl] AdvReac Unknown Nausea, Verified 03/19/23 23:50 sweats, Diarrhea Review of Systems 2 Review of Systems: Yes all other systems are reviewed and are negative PMFSH Past Medical History Onset Date is defined in the Problem List Problems that require an onset date and time if occurred within 24 hrs of arrival to the ED Aortic Dissection and Rupture; Neurologic impairment; Cardiopulmonary Arrest; Endotracheal Intubation; Insertion or Replacement of Mechanical Circulatory Assist Device Medical History Thrombosed external hemorrhoid Autosomal dominant hereditary hemochromatosis Mild intermittent allergic 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 Mood disorder Dizziness Paresthesia Thyroid nodule Anxiety HTN (hypertension) Surgical History S/P fine needle aspiration Hx of wisdom tooth extraction Family History Family History Father CLL (chronic lymphocytic leukemia) Diabetes Paternal Grandfather Diabetes Maternal Grandmother H/O heart bypass surgery Mother Drug abuse Social History Social History Household Members: None Housing: Apartment Are you a primary animal daycare provider to a significant other at home: No Do you presently have visiting nurse or other home services: No Alcohol intake: never Patient Tobacco Use Status: Never used Tobacco Smoked in Last 30 Days: No Use of substances other than those prescribed or required for medical reasons: No Advance Directives: No Advance Directives Information Provided: No service: No Current occupational status: unemployed Physical Exam ED Vital Signs: Vital Signs - 24 hr 03/21/23 22:33 03/21/23 23:35 Temperature 97.6 F 98.8 F Pulse Rate 102 H 83 Respiratory Rate 15 16 Blood Pressure 157/104 H 139/94 H Pulse Oximetry 97 96 Oxygen Delivery Method Room Air Room Air BMI result Body Mass Index 26.3 Const Other: The patient is awake, alert, cooperative, in no apparent distress. HENMT Other: The face is symmetrical. ?Mucous membranes moist. Eyes Other: Pupils are round equal, conjunctivae are clear, extraocular movements intact Neck Neck: Yes no JVD Resp Effort & Inspection: normal respiratory effort Auscultation: clear to auscultation bilaterally Cardio Rate: regular rate Rhythm: regular rhythm Heart sounds: S1 normal heart sound present and S2 normal heart sound present GI Other: Abdomen is soft Skin Other: Skin is pale and dry Neuro Other: Awake and alert, speech clear, face symmetrical, moving extremities normally Extrem Other: No peripheral edema Medications Administered Discontinued Medications Generic Name Dose Route Start Last Admin Trade Name Freq PRN Reason Stop Dose Admin Potassium Chloride 20 meq 03/22/23 00:21 03/22/23 00:43 Potassium Chloride Er 10 Meq Tablet.Er PO 03/22/23 00:22 20 meq ONCE ONE Administration Medical Decision Making Medical Decision Making MDM Narrative: The patient is a 37-year-old male who comes to the emergency room by ambulance complaining of palpitations and tachycardia at home. He was here 2 nights ago with similar complaints. His workup today is unremarkable. He asked that I check a CPK because he had taken a dose of rosuvastatin this morning and then had a lot of body pains. His CPK is normal. He was also concerned that his potassium was at the lower end of normal and requested a prescription for supplemental potassium. His EKG and labs today are essentially unremarkable. His CPK is normal. I explained to the patient that there was no indication for hospitalization based on his presentation today. I recommended he might follow up with his regular doctor or injection mold tooling technician to discuss possibly having a wearable monitor to further evaluate these episodes of palpitations. He said that he once had a monitor which she wore for 2 or 3 days. Perhaps he could get a monitor for a longer period of time. Lab Data 03/21/23 22:54 03/21/23 22:54 Labs: Lab Results 03/21/23 Range/Units 22:54 WBC 6.7 (4.8-10.8) X10*3/uL RBC 5.70 (4.60-5.80) X10*6/uL Hgb 18.1 H (14.0-18.0) g/dl Hct 50.4 (42.0-52.0) % MCV 88.4 (80.0-98.0) fL MCH 31.8 (27.0-33.0) pg MCHC 35.9 (31.0-36.0) g/dl RDW 11.6 (11.0-16.0) % Plt Count 272 (160-400) X10*3/uL MPV 9.1 L (9.4-12.4) fL Immature Gran % (Auto) 0.2 (0.0-0.4) % Neut % (Auto) 70.7 (45-73) % Lymph % (Auto) 19.7 L (20-40) % [place] % (Auto) 7.4 (2-11) % Eos % (Auto) 1.2 (0-4) % Baso % (Auto) 0.8 (0-2) % Lymph # (Auto) 1.3 (1.2-4.9) X10*3/uL [place] # (Auto) 0.5 (0.1-1.2) X10*3/uL Eos # (Auto) 0.1 (0.0-0.4) X10*3/uL Baso # (Auto) 0.1 (0.0-0.2) X10*3/uL Abs Immat Gran (auto) 0.01 (0.00-0.03) X10*3/uL Absolute Neuts (auto) 4.7 (2.0-8.3) x10*3/uL Absolute Nucleated RBC 0.000 (0.0-0.012) X10*3/uL Nucleated RBC % (auto) 0.0 (0.0-0.2) /100WBC Sodium 140 (135-145) mmol/L Potassium 3.5 (3.3-5.1) mmol/L Chloride 106 (96-108) mmol/L Carbon Dioxide 26 (22-29) mmol/L Anion Gap 12 (12-20) BUN 13 (9-16) mg/dL Creatinine 1.08 (0.5-1.4) mg/dL Estim Creat Clear Calc 99.7 Estimated GFR > 60 Random Glucose 142 H (60-115) mg/dL Calcium 9.7 (8.4-10.2) mg/dL Total Bilirubin 0.6 (0.0-1.0) mg/dL Direct Bilirubin 0.2 (0.0-0.5) mg/dL AST 14 (5-37) U/L ALT 18 (0-40) U/L Alkaline Phosphatase 83 (39-117) U/L Total Creatine Kinase 74 (38-174) U/L Troponin I High Sens < 2.7 (<3.5-35.0) ng/L Total Protein 7.6 (6.5-8.0) g/dL Albumin 4.4 (3.5-5.0) g/dL Lipase 23 (8-78) U/L Urine Color Yellow Urine Appearance Clear Urine pH 7.5 (5.0-9.0) Ur Specific [place] 1.010 (1.005-1.025) Urine Protein Negative (Neg-Trace) mg/dL Urine Glucose (UA) Negative (Negative) mg/dL Urine Ketones Negative (Negative) mg/dL Urine Blood Negative (Negative) Urine Nitrite Negative (Negative) Ur Leukocyte Esterase Negative (Negative) Independent Interpretation I performed an independent interpretation of an: EKG Interpretation: EKG at 22:37 shows sinus tachycardia at 101 beats per minute. Otherwise normal EKG. No change from previous. Discharge Plan Discharge Clinical Impression: Palpitations Patient Disposition: Home, Self-Care Additional Instructions: Your testing in the emergency room today is reassuring. I have sent a prescription for some additional potassium tablets to your pharmacy. Please plan on following up with your regular doctor to see if her regular doctor can arrange for a wearable monitor to check on these episodes of palpitations further. You may also contact your injection mold tooling technician's office for the same reason. Return to the emergency room if worse. Prescriptions: New potassium chloride 10 mEq capsule, extended release 10 meq PO BID Qty: 14 0RF No Action cholecalciferol (vitamin D3) 50 mcg (2,000 unit) capsule 50 mcg PO DAILY Qty: 90 3RF rosuvastatin 10 mg tablet 10 mg PO DAILY Qty: 30 5RF ondansetron 4 mg tablet,disintegrating 4 mg PO Q6H PRN (Reason: nausea and vomiting) Qty: 10 0RF Linzess 72 mcg capsule 72 mcg PO QAM pantoprazole 40 mg tablet,delayed release (DR/EC) 40 mg PO DAILY Qty: 30 2RF Rx Instructions: take one tablet half an hour before breakfast
[2023-03-22] MEDS: Potassium Chloride ER 10 MEQ TABLET.ER 20 MEQ PO (00:43)
--- NOTE | 2023-03-22 00:46 | PC.NURSE ---
Pt medicated per may. Plan of care ongoing.
== END 2023-03-22 01:17 | disposition home or self-care (01) ==
PROVIDERS: Emergency Provider Emergency Medicine
DX: R00.0 Tachycardia, unspecified (principal); R11.2 Nausea with vomiting, unspecified; R00.2 Palpitations; Z79.899 Other long term (current) drug therapy
CPT/HCPCS: 36415; 80048; 80076; 81003; 82550; 83690; 84484; 85025; 93005; 99283; 99284

== ENCOUNTER → 2023-03-21 22:37 | Outpatient (BNV) | payer MEDICAID, SELFPAY | PROVIDERS: Emergency Provider Emergency Medicine; Visit Provider Internal Medicine | DX: R07.9 Chest pain, unspecified (principal) | CPT/HCPCS: 93010 ==

== ENCOUNTER 2023-03-22 13:14 | Emergency (ER) | payer MEDICAID, SELFPAY ==
--- NOTE | 2023-03-22 | ECG_ITS ---
Test Reason : CHEST PAIN Blood Pressure : / mmHG Vent. Rate : 068 BPM Atrial Rate : 068 BPM P-R Int : 142 ms QRS Dur : 076 ms QT Int : 392 ms P-R-T Axes : 031 053 032 degrees QTc Int : 416 ms Normal sinus rhythm Normal ECG When compared with ECG of 21-MAR-2023 22:37, Vent. rate has decreased BY 33 BPM Referred By: Yusuf Quiroz Electronically Signed By:CRUZ GARCIA
[2023-03-22 13:22] VITALS: BP 150/102; PULSE 78; O2SAT 100
[2023-03-22 13:29] VITALS: BP 142/103; PULSE 75; RESP 16; TEMP 36.1; O2SAT 97; BMI 27.2
--- NOTE | 2023-03-22 13:52 | ED_ITS ---
HPI - Chest Pain General Chief Complaint: General Medical Stated Complaint: UPPER MID BACK PAIN,DIZZY,HIGH BP 150/102 PER EMS Time Seen by Provider: 03/22/23 13:25 Source: patient Mode of arrival: EMS Limitations: no limitations History of Present Illness HPI narrative: 37-year-old male with a history of hypertension, hyperlipidemia, hemochromatosis, superficial phlebitis, anxiety who presents emergency department for evaluation of hot sensation, diaphoresis, back pain and lightheadedness. This is the patient's 4th visit to the emergency department in 1 month. Patient was seen here on 03/20/2023 for insomnia, chest pain, palpitations. Patient had a negative workup at that time including a normal TSH. Patient states he was following with his PCP for his elevated blood pressure and they prescribed amlodipine for his blood pressure and gabapentin for his insomnia. Patient states that he was waiting at the pharmacy to get his prescriptions filled when he felt very hot, he became diaphoretic. He states he developed a pressure pain in the center of his back. He felt lightheaded and dizzy. Patient was then sent to emergency department by ambulance. Patient was also seen in the emergency department on 03/11/2023 for palpitations. His workup at that time was negative included a CT pulmonary angiogram which revealed no acute abnormalities and no aneurysms. Also states he has had a Holter monitor in the past which was normal. Patient states he has had severe insomnia and is not able to sleep. He does have anxiety he states that he sees the therapist but is not on any medications for his anxiety. He states he did take Valium in the past that did seem to improve his anxiety. Patient was concerned that he may have hyperthyroidism however I did tell him that his TSH on 03/20 was normal. Patient was also seen by endocrinology on 12/29/2021 for a right mid pole thyroid cyst with a negative fine-needle aspiration and euthyroid workup. 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 Related Data Home Medications Medication Instructions Recorded Confirmed linaclotide 72 mcg capsule 72 mcg PO QAM 07/15/22 01/04/23 (Linzess) Previous Rx's Medication Instructions Recorded pantoprazole 40 mg tablet,delayed 40 mg PO DAILY #30 tabs 07/15/22 release cholecalciferol (vitamin D3) 50 50 mcg PO DAILY #90 caps 09/16/22 mcg (2,000 unit) capsule rosuvastatin 10 mg tablet 10 mg PO DAILY #30 tabs 01/14/23 ondansetron 4 mg disintegrating 4 mg PO Q6H PRN nausea and 03/12/23 tablet vomiting #10 tabs lorazepam 1 mg tablet (Ativan) 1 mg PO BEDTIME PRN Anxiety, 03/22/23 insomnia #10 tabs potassium chloride 10 mEq 10 meq PO BID #14 caps 03/22/23 capsule,extended release Allergies Allergy/AdvReac Type Severity Reaction Status Date / Time tadalafil [From Cialis] Allergy Severe Unknown Verified 03/19/23 23:50 [id number] Reductase Allergy Palpitation Verified 03/21/23 22:37 Inhibitor s metronidazole [From Flagyl] AdvReac Unknown Nausea, Verified 03/19/23 23:50 sweats, Diarrhea Review of Systems 2 Review of Systems: Yes all other systems are reviewed and are negative [facility] Past Medical History [facility] Narrative: Social history: He denies tobacco, alcohol and drug use. Onset Date is defined in the Problem List Problems that require an onset date and time if occurred within 24 hrs of arrival to the ED Aortic Dissection and Rupture; Neurologic impairment; Cardiopulmonary Arrest; Endotracheal Intubation; Insertion or Replacement of Mechanical Circulatory Assist Device Medical History Thrombosed external hemorrhoid Autosomal dominant hereditary hemochromatosis Mild intermittent allergic 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 Mood disorder Dizziness Paresthesia Thyroid nodule Anxiety HTN (hypertension) Surgical History S/P fine needle aspiration Hx of wisdom tooth extraction Family History Family History Father CLL (chronic lymphocytic leukemia) Diabetes Paternal Grandfather Diabetes Maternal Grandmother H/O heart bypass surgery Mother Drug abuse Social History Social History Household Members: None Housing: Apartment Are you a primary managed care liaison to a significant other at home: No Do you presently have visiting nurse or other home services: No Alcohol intake: never Patient Tobacco Use Status: Never used Tobacco Advance Directives: No Advance Directives Information Provided: Yes service: No Current occupational status: unemployed Physical Exam 2 Vital Signs: Vital Signs: Last Vital Signs Temp 97 F 03/22/23 13:29 Pulse 75 03/22/23 13:29 Resp 16 03/22/23 13:29 BP 142/103 H 03/22/23 13:29 Pulse Ox 97 03/22/23 13:29 O2 Del Method Room Air 03/22/23 13:29 BMI result Body Mass Index 27.2 Patient did have an elevated blood pressure of 142/103 Exam General: Awake, alert in no distress Head: Normocephalic, atraumatic EENT: PERRL, Lids normal, sclera normal, conjunctiva normal, nose normal , ears normal, throat without erythema or exudates Neck: Supple, no adenopathy, no trachea midline or C-spine tenderness Lung: breath sounds symmetric, no wheezing, rales or rhonchi Chest: symmetric movement, nontender Heart: regular rate and rhythm, normal S1, S2 no murmurs or rubs Abdomen: soft, non-tender, nondistended, normal bowel sounds Back: no vertebral tenderness, patient does have midthoracic mild paraspinal muscle tenderness Extremities: no deformities, moves all extremities symmetrically Neuro: Awake, alert, oriented, normal speech, moves all extremities symmetrically Psych: Pleasant, cooperative Medications Administered Discontinued Medications Generic Name Dose Route Start Last Admin Trade Name Freq PRN Reason Stop Dose Admin Lorazepam 2 mg 03/22/23 13:52 03/22/23 14:07 Lorazepam 1 Mg Tablet PO 03/22/23 13:53 2 mg ONCE STA Administration Medical Decision Making Medical Decision Making MDM Narrative: 37-year-old male with a history of hypertension, hyperlipidemia, hemochromatosis, superficial phlebitis, anxiety who presents emergency department for evaluation of midthoracic back pain associated with diaphoresis and lightheadedness. The patient was seen today by his PCP and symptoms started while he was waiting in line to get his prescription for amlodipine filled. This is the patient's 3rd visit to the emergency department and he was seen on 03/20/2023 for insomnia and 03/11/2023 for palpitations-both with negative workups including normal TSH and normal CT pulmonary angiogram. Patient's vital signs did reveal an elevated blood pressure of 142/103. Patient's exam did reveal tenderness palpation of his midthoracic spine otherwise was unremarkable. Following evaluation was ordered: EKG, CBC, CMP, troponin Patient was treated with the following medicine: Ativan 2 mg orally 15:14 My interpretation patient's laboratory evaluation is as follows: CBC, CMP were normal. High sensitive troponin I was below detectable limits. EKG was unremarkable. Patient is feeling significantly better after the above treatment. I did tell the patient that his symptoms are most likely caused by stress and anxiety and that it is important that he follow up with his therapist to see a prescribing provider to get on antianxiety medications Patient was prescribed amlodipine for hypertension and gabapentin to take at night for insomnia and I told him that he should get these medications filled and take them as directed by his PCP. Patient was given prescription for Ativan 1 mg times to take at night as needed for anxiety. He was given printed and verbal instructions discharged home Differential Diagnosis Differential Diagnoses: The differential diagnosis associated with the presentation includes Differential diagnosis includes was not limited to myocardial ischemia, myocardial infarction, arrhythmia, palpitations, anxiety, hypertension Admission/Observation Consideration of admission/observation: Escalation of care including admission/observation considered Lab Data MDM Lab Attestation statement: I reviewed the patient's lab results. 03/22/23 13:58 03/22/23 13:58 Labs: Lab Results 03/22/23 Range/Units 13:58 WBC 8.0 (4.8-10.8) X10*3/uL RBC 5.28 (4.60-5.80) X10*6/uL Hgb 16.8 (14.0-18.0) g/dl Hct 46.6 (42.0-52.0) % MCV 88.3 (80.0-98.0) fL MCH 31.8 (27.0-33.0) pg MCHC 36.1 H (31.0-36.0) g/dl RDW 11.6 (11.0-16.0) % Plt Count 252 (160-400) X10*3/uL MPV 9.2 L (9.4-12.4) fL Immature Gran % (Auto) 0.3 (0.0-0.4) % Neut % (Auto) 69.6 (45-73) % Lymph % (Auto) 20.6 (20-40) % [place] % (Auto) 8.2 (2-11) % Eos % (Auto) 0.9 (0-4) % Baso % (Auto) 0.4 (0-2) % Lymph # (Auto) 1.6 (1.2-4.9) X10*3/uL [place] # (Auto) 0.7 (0.1-1.2) X10*3/uL Eos # (Auto) 0.1 (0.0-0.4) X10*3/uL Baso # (Auto) 0.0 (0.0-0.2) X10*3/uL Abs Immat Gran (auto) 0.02 (0.00-0.03) X10*3/uL Absolute Neuts (auto) 5.6 (2.0-8.3) x10*3/uL Absolute Nucleated RBC 0.000 (0.0-0.012) X10*3/uL Nucleated RBC % (auto) 0.0 (0.0-0.2) /100WBC Sodium 138 (135-145) mmol/L Potassium 3.6 (3.3-5.1) mmol/L Chloride 101 (96-108) mmol/L Carbon Dioxide 28 (22-29) mmol/L Anion Gap 13 (12-20) BUN 13 (9-16) mg/dL Creatinine 1.02 (0.5-1.4) mg/dL Estim Creat Clear Calc 105.6 Estimated GFR > 60 Random Glucose 96 (60-115) mg/dL Calcium 9.7 (8.4-10.2) mg/dL Total Bilirubin 0.8 (0.0-1.0) mg/dL AST 14 (5-37) U/L ALT 18 (0-40) U/L Alkaline Phosphatase 75 (39-117) U/L Troponin I High Sens < 2.7 (<3.5-35.0) ng/L Total Protein 7.1 (6.5-8.0) g/dL Albumin 4.1 (3.5-5.0) g/dL Independent Interpretation I performed an independent interpretation of an: EKG Interpretation: My interpretation the patient's 12 EKG done at 13:52 hours is as follows: Normal sinus rhythm rate of 68, normal DE interval, QRS duration QTC interval, no ST segment elevation, no ST segment depression, no PACs, no PVCs External Record Review External record reviewed: Office record (Cardiology, Endocrinology, PCP internal medicine note sent with patient by Mayra Tobin RN) Prescription Management I considered prescription management with: Other (Antianxiety medications) Discharge Plan Discharge Clinical Impression: Anxiety Back pain Qualifiers: Back pain location: thoracic back pain Chronicity: acute Back pain laterality: midline Qualified Code(s): M54.6 - Pain in thoracic spine Insomnia Qualifiers: Insomnia type: due to other mental disorder Qualified Code(s): F51.05 - Insomnia due to other mental disorder Patient Disposition: Home, Self-Care Instructions: Anxiety (ED) Additional Instructions: Your blood work was normal. Your EKG was unremarkable. Your symptoms are caused by untreated anxiety. You are currently not taking any antianxiety medications, you should talk to your therapist to get referred to a prescribing provider so you can start antianxiety medications. Your PCP may also be able to start you on antianxiety medications as well. Once you started antianxiety medication it often takes 4-6 weeks before it works so do not give up on the medication. You should take your gabapentin as prescribed by your PCP for insomnia. I do not think that you are allergic to calcium channel blockers however you should discuss whether or not you should start the amlodipine with your doctor since your high blood pressure is most likely stress related. I am prescribing Ativan 1 mg pills to take at night to help with anxiety and sleep is not relieved by the gabapentin. Follow-up with your doctor in 2 days. Please return to the emergency department if your symptoms get worse or if you develop any symptoms that are concerning to you. Prescriptions: New lorazepam [Ativan] 1 mg tablet 1 mg PO BEDTIME PRN (Reason: Anxiety, insomnia) Qty: 10 0RF No Action cholecalciferol (vitamin D3) 50 mcg (2,000 unit) capsule 50 mcg PO DAILY Qty: 90 3RF rosuvastatin 10 mg tablet 10 mg PO DAILY Qty: 30 5RF ondansetron 4 mg tablet,disintegrating 4 mg PO Q6H PRN (Reason: nausea and vomiting) Qty: 10 0RF potassium chloride 10 mEq capsule, extended release 10 meq PO BID Qty: 14 0RF Linzess 72 mcg capsule 72 mcg PO QAM pantoprazole 40 mg tablet,delayed release (DR/EC) 40 mg PO DAILY Qty: 30 2RF Rx Instructions: take one tablet half an hour before breakfast
[2023-03-22] MEDS: LORazepam 1 MG TABLET 2 MG PO (14:07)
[2023-03-22 14:10] LABS: MANUAL DIFF FLAG NO
[2023-03-22 14:14] LABS: Basophils Percent Auto 0.4 % (0-2); Eosinophils Absolute Auto 0.1 X10*3/uL (0.0-0.4); Eosinophils Percent Auto 0.9 % (0-4); Hematocrit 46.6 % (42.0-52.0); Hemoglobin 16.8 g/dl (14.0-18.0); Imm Gran Abs Auto 0.02 X10*3/uL (0.00-0.03); Imm Gran Pct Auto 0.3 % (0.0-0.4); Lymphocytes Absolute Auto 1.6 X10*3/uL (1.2-4.9); Lymphocytes Percent Auto 20.6 % (20-40); Mean Corpuscular HGB Conc 36.1 g/dl (31.0-36.0); Mean Corpuscular Hemoglobin 31.8 pg (27.0-33.0); Mean Corpuscular Volume 88.3 fL (80.0-98.0); Mean Platelet Volume 9.2 fL (9.4-12.4); Monocytes Absolute Auto 0.7 X10*3/uL (0.1-1.2); Monocytes Percent Auto 8.2 % (2-11); Neutrophils Absolute Auto 5.6 x10*3/uL (2.0-8.3); Neutrophils Percent Auto 69.6 % (45-73); Platelet Count 252 X10*3/uL (160-400); Red Blood Count 5.28 X10*6/uL (4.60-5.80); Red Cell Distribution Width 11.6 % (11.0-16.0)
[2023-03-22 14:31] LABS: Alanine Aminotransferase 18 U/L (0-40); Albumin Level 4.1 g/dL (3.5-5.0); Alkaline Phosphatase 75 U/L (39-117); Anion Gap 13 (12-20); Aspartate Amino Transferase 14 U/L (5-37); Bilirubin Total 0.8 mg/dL (0.0-1.0); Blood Urea Nitrogen 13 mg/dL (9-16); Calcium 9.7 mg/dL (8.4-10.2); Carbon Dioxide 28 mmol/L (22-29); Chloride 101 mmol/L (96-108); Creatinine Clr Calc Pharmacy 105.6; Estimated Glomerular Filt Rate > 60; Glucose Random 96 mg/dL (60-115); Potassium 3.6 mmol/L (3.3-5.1); Sodium 138 mmol/L (135-145); Total Protein 7.1 g/dL (6.5-8.0)
[2023-03-22 14:38] LABS: Troponin-I High Sensitivity < 2.7 ng/L (<3.5-35.0)
[2023-03-22 15:39] VITALS: BP 122/83; PULSE 78; RESP 18; TEMP 36.5; O2SAT 98
== END 2023-03-22 16:04 | disposition home or self-care (01) ==
PROVIDERS: Emergency Provider Emergency Medicine Emergency Medical Services; PCP General Practice
DX: F41.9 Anxiety disorder, unspecified (principal); F51.05 Insomnia due to other mental disorder; M54.6 Pain in thoracic spine; I10 Essential (primary) hypertension; E78.5 Hyperlipidemia, unspecified; Z79.02 Long term (current) use of antithrombotics/antiplatelets; Z79.899 Other long term (current) drug therapy
CPT/HCPCS: 36415; 80053; 84484; 85025; 93005; 99283; 99284

== ENCOUNTER → 2023-03-22 13:52 | Outpatient (BNV) | payer MEDICAID, SELFPAY | PROVIDERS: Emergency Provider Emergency Medicine Emergency Medical Services; PCP General Practice; Visit Provider Internal Medicine | DX: R07.9 Chest pain, unspecified (principal) | CPT/HCPCS: 93010 ==

== ENCOUNTER → 2023-03-24 15:03 | Outpatient (REF) | payer MEDICAID, SELFPAY ==
--- NOTE | 2023-03-24 15:07 | CA_ITS ---
Transthoracic Echocardiogram Patient (Last, First, Middle): Arben Emanuel, Gender: Male Date of : 1985 Age: 37 Procedure Date: 03/24/2023 Procedure Type: Transthoracic Echocardiogram Location: OP Height: 180.34 cm Weight: 83.92 kg BSA: 2.04 m2 Heart Rate: 63 bpm BP: 112 / 68 mmHg Asset Coordinator: SB Referring MD: Cuca Jones CROSS TIE MAKERGus Symptoms: E83.110 - Hereditary hemochromatosis Study Quality: Adequate ECG Rhythm: Sinus Conclusions: - The left ventricular systolic function is normal. The calculated ejection fraction is 61% by biplane method. - No obvious valvular pathology seen on this study. Findings Left Ventricle Normal left ventricular cavity size. There is normal left ventricular wall thickness. The left ventricular systolic function is normal. The calculated ejection fraction is 61% by biplane method. There is no evidence of regional wall motion abnormalities. Diastolic function is normal for age. Right Ventricle Normal right ventricular cavity size and systolic function. Atria Both atria are normal in size. Aortic Valve There is a normal trileaflet aortic valve. There is no aortic valve stenosis. There is no aortic valve regurgitation. Mitral Valve The mitral valve appears normal. There is no mitral valve regurgitation. There is no mitral valve stenosis. Pulmonic Valve The pulmonic valve is likely normal. Tricuspid Valve Normal tricuspid valve structure. There is trace tricuspid valve regurgitation. There is no evidence of pulmonary hypertension. Great Vessels The asc aorta is normal in size. Venous The inferior vena cava is normal in size and collapses greater than 50% with inspiration. Pericardium/Pleural There is no evidence of pericardial effusion. Prior Study Comparison No significant change compared to prior study dated: 03/12/2021. Recommendations, Care & Conclusions No obvious valvular pathology seen on this study. Measurements 2D Linear Measurements IVSd: 0.87 0.6-0.9/0.6-1.0 cm LVIDd: 4.88 3.9-5.3/4.2-5.9 cm LVIDd Index: 2.39 2.4-3.2/2.2-3.1 cm/m2 LVIDs: 3.01 2.0-3.6 cm LVPWd: 0.86 0.7-1.1 cm LA Diam: 3.40 2.7-3.8/3.0-4.0 cm LAIDs Index: 1.67 1.5-2.3 cm/m2 LV Mass: 180.04 67-162/88-224 g LV Mass Index: 88.25 43-95/49-115 g/m2 LVOT Diam: 2.10 3.0+(-)1.3 cm 2D Systolic Function EF 4C: 63.30 >55% EF 2C: 61.00 >55% EF BiP: 60.70 >55% Mitral Valve MV Pk E: 0.89 MV PK A: 0.39 MV Decel Time: 219.00 E/A: 2.30 E'Lateral: 13.60 E'Medial: 9.57 E/E' Med: 9.30 E/E' Lat: 6.60 PHT: 64.00 MVA PHT: 3.44 Decel [place]nam: 4.07 Aortic Valve AoV Pk Sammy: 1.09 AoV Pk Grad: 5.00 SHIRA: 3.49 LVOT LVOT Pk Sammy: 1.13 LVOT Mn Sammy: 0.81 LVOT VTI: 0.22 LVOT Pk Grad: 5.00 LVOT Mn Grad: 3.00 LVOT Diam: 2.10 LVOT Area: 3.46 Diastolic Function MV Pk E: 0.89 MV Pk A: 0.39 E/A: 2.30 E'Medial: 9.57 E/E' Med: 9.30 E' Laterial: 13.60 E/E' Lat: 6.60 Right Ventricle TAPSE (mm): 19.40 TVS' Sammy: 12.30 Tricuspid Valve RA Press: 3.00 Great Vessels Aorta Sinus of Valsalva: 3.80 2.0-3.5 cm Ao Asc: 2.90 2.1-3.4 cm Pulmonary Valve PV Pk Sammy: 0.80 Peak PV Grad: 3.00 Updated in Other Vendor System with Status of Final Erik Garcia MD electronically signed on 03/25/2023 3:03:52 PM with status of Final
== END ==
LOC: HO.CARD 15:03
PROVIDERS: Visit Provider Nurse Practitioner Family
DX: R00.2 Palpitations (principal); I10 Essential (primary) hypertension; E83.110 Hereditary hemochromatosis
CPT/HCPCS: 93306

== ENCOUNTER → 2023-03-24 15:07 | Outpatient (BNV) | payer MEDICAID, SELFPAY | PROVIDERS: Visit Provider Internal Medicine | DX: E83.110 Hereditary hemochromatosis (principal) | CPT/HCPCS: 93306 ==

== ENCOUNTER 2023-03-25 16:17 | Outpatient (REF) | payer MEDICAID, SELFPAY ==
[2023-03-25 17:50] LABS: Iron 211 mcg/dL (45-160); Percent Iron Saturation 85 % (15-50); Total Iron Binding Capacity 249 mcg/dL (228-428); Unsaturated Iron Binding 38 ug/dL
== END 2023-03-25 16:18 | disposition home or self-care (01) ==
LOC: HO.HHCL 16:17
PROVIDERS: Visit Provider General Practice
DX: E83.110 Hereditary hemochromatosis (principal)
CPT/HCPCS: 36415; 83540

== ENCOUNTER 2023-03-28 10:00 | Outpatient (AMB) | payer MEDICAID, SELFPAY ==
--- NOTE | 2023-03-28 10:05 | MHC.OFFVIS ---
Intake Vital Signs 03/28/23 10:07 Height 5 ft 11 in Weight 180 lb 12.465 oz BMI 25.2 BP 125/85 Blood Pressure Location Lt brachial Position Sitting Pulse 73 Intake Visit Reasons: Elevated Pulse ? r/t BM Intake Note: Arben presents in the office as a follow up for elevated pulse. CC: He states that he has a burning in his stomach and around his naval. He states that it is keeping him up and he also brought some food with him that he feels like might have caused it and he wants to know if he can be tested for it. He states that he gets diarrhea and heart palpitations. Palpitations go away after diarrhea. Whenever he falls asleep he will have it 2 hours after laying down and then he is unable to go back to sleep. Allergies tadalafil [From Cialis] Allergy (Severe, Verified 03/28/23 10:05) Unknown [id number] Reductase Inhibitor Allergy (Verified 03/28/23 10:05) Palpitations rosuvastatin Adverse Reaction (Mild, Verified 03/28/23 10:10) Unknown metronidazole [From Flagyl] Adverse Reaction (Unknown, Verified 03/28/23 10:05) Nausea, sweats, Diarrhea HPI Elevated Pulse ? r/t BM HPI Details LAST VISIT AUGUST OF 2022 Perirectal discomfort Patient was seen before by surgery for hemorrhoids, no need for surgery or drainage. Patient will follow-up with them again. Hemochromatosis Patient was encouraged to make an appointment as he missed therapeutic phlebotomy couple weeks ago. GERD (gastroesophageal reflux disease) Continue avoiding dietary triggers and late night snacking. Staying upright for medical 3 hours after meals discussed with patient. Patient was encouraged to start taking pantoprazole. IBS (irritable bowel syndrome) Postprandial abdominal bloating. Discussed with patient low FODMAP diet. List of food recommended as well as list of food to avoid mentioned to patient again. Patient tried Linzess and stated that he has reaction which is very uncommon and unusual. Patient was encouraged to take the medications to help him move his bowels. Patient reports abdominal discomfort cramping like pain postprandially. I will send him for CT scan. Patient had ultrasound done in June that showed cholelithiasis without cholecystitis. Patient reports periumbilical pain and cramping. I will see patient after upper endoscopy, sooner on as needed basis. Patient is agreeable to this plan and verbalizes understanding of instructions. He was given the opportunity to ask questions and all questions answered. ? Thank you for allowing me to participate in his care Plan Orders Orders CT abdomen pelvis w IV con 08/24/22 R10.9 - Unspecified abdominal pain Blood Urea Nitrogen 08/24/22 R10.11 - Right upper quadrant pain Creatinine 08/24/22 R10.11 - Right upper quadrant pain Referrals General Surgery Referral K62.89 - Other specified diseases of anus and rectum TODAY'S VISIT Patient is here today for requested visit. Patient states that couple weeks ago he left food on the counter for few days and then he aided and since then patient states that he has been having abdominal pain and diarrhea. Patient reports that he has a sour feeling in his stomach in the upper part of his stomach and just above his umbilical area. Patient reports that he is unable to eat much because of the pain. Patient reports that he has not had a normal bowel movement. For the most part he states that he has diarrhea. Patient denies any nausea or vomiting. Reports dyspepsia without dysphagia or odynophagia. Patient reports that he is taking pantoprazole and for the most part he feels that is helpful. Patient denies any melena, hematochezia, unintentional weight loss or ribbon like stools. Patient was last seen in August of 2022. Was sent for CT scan of abdomen and pelvis with oral and IV contrast, however has not had the test done as he was worried that he will have too much radiation. Patient was supposed to go for upper endoscopy and never book the appointment. All of his blood work was essentially normal last time we did it. CRP negative, mildly low vitamin-D level otherwise all normal. Patient was placed on vitamin-D supplement, has not been taking it lately. Patient reports that he has been drinking fluids. He had 2 eggs and toast with peanut butter this morning. [facility] Medical History Thrombosed external hemorrhoid Autosomal dominant hereditary hemochromatosis Mild intermittent allergic 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 Mood disorder Dizziness Paresthesia Thyroid nodule Anxiety HTN (hypertension) Surgical History (Updated 03/28/23 @ 10:09 by VANDANA Buchanan) Hx of colonoscopy S/P fine needle aspiration Hx of wisdom tooth extraction Family History Father CLL (chronic lymphocytic leukemia) Diabetes Paternal Grandfather Diabetes Maternal Grandmother H/O heart bypass surgery Mother Drug abuse Social History Household Members: None Housing: Apartment Are you a primary wound care coordinator to a significant other at home: No Do you presently have visiting nurse or other home services: No Alcohol intake: never Patient Tobacco Use Status: Never used Tobacco service: No Current occupational status: unemployed Review of Systems Const Denies weight gain and Denies weight loss ENT Reports no additional complaints, Denies dysphagia and Denies odynophagia Card Reports no additional complaints Resp Reports no additional complaints GI Reports abdominal pain (Upper, epigastric), Denies belching, Denies melena, Denies bloating, Denies change in bowel habits, Reports GI cramping, Denies dysphagia, Denies excessive flatus, Reports dyspepsia, Denies heartburn, Denies diarrhea, Reports loose stools, Denies nausea, Denies odynophagia and Denies vomiting Reports no additional complaints Musc Reports no additional complaints Neuro Reports no additional complaints Psych Reports no additional complaints Endo Reports no additional complaints Physical Exam Vital Signs: BMI result Body Mass Index 25.2 Const General: healthy appearing, no acute distress and well developed Nutritional Appearance: well nourished Orientation/consciousness: patient oriented x3 Resp Effort & Inspection: normal respiratory effort, able to speak in complete sentences, no tracheal deviation and symmetric chest movement Auscultation: clear to auscultation bilaterally Cardio Rate: regular rate GI Inspection: Yes normal to inspection and No distended Palpation (GI): Soft to palpation, not firm, nontender and No hepatosplenomegaly present Auscultation: normal bowel sounds General: Yes no CVA tenderness Back/Spine/Pelvis Back: no CVA tenderness Skin General skin exam: elasticity normal, turgor normal and dry skin Neuro General: patient oriented x3 Psych Appearance: grossly normal Mental Status: mental status grossly normal Affect: Anxious affect present Assessment & Plan Assessment & Plan (1) Hemochromatosis: Code(s): E83.119 - Hemochromatosis, unspecified Qualifiers: Hemochromatosis type: hereditary Qualified Code(s): E83.110 - Hereditary hemochromatosis (2) GERD (gastroesophageal reflux disease): Code(s): K21.9 - Gastro-esophageal reflux disease without esophagitis Qualifiers: Esophagitis presence: esophagitis presence not specified Qualified Code(s): K21.9 - Gastro-esophageal reflux disease without esophagitis (3) IBS (irritable bowel syndrome): Code(s): K58.9 - Irritable bowel syndrome without diarrhea Qualifiers: Irritable bowel syndrome type: with diarrhea Qualified Code(s): K58.0 - Irritable bowel syndrome with diarrhea (4) Diarrhea: Code(s): R19.7 - Diarrhea, unspecified Qualifiers: Diarrhea type: functional diarrhea Qualified Code(s): K59.1 - Functional diarrhea (5) Abdominal pain: Code(s): R10.9 - Unspecified abdominal pain Qualifiers: Abdominal location: upper abdomen, unspecified Qualified Code(s): R10.10 - Upper abdominal pain, unspecified Plan Patient will continue taking pantoprazole. Discussed with patient avoiding dietary triggers and late night snacking. Staying upright for minimum 3 hours after meals discussed with patient. Stressed the importance of drinking plenty fluids. Will send patient for more blood work. Unlikely IBD, CRP was negative in the past. Patient will start taking Citrucel and drink plenty fluids to help him bulk his stools. Will cancel CT scan per patient's request. Low FODMAP diet discussed with patient. List of food recommended as well as list of food to avoid given to patient. Patient will be sent for upper endoscopy to rule out gastritis, duodenitis, esophagitis, gastric or peptic ulcers, H pylori, Roland's. Will do GI panel, C diff. I will see patient after upper endoscopy, sooner on as needed basis. Patient is agreeable to this plan and verbalizes understanding of instructions. He was given the opportunity to ask questions and all questions answered. Thank you for allowing me to participate in his care Orders: Orders Pancreatic Elastase-1 Today R10.9 - Unspecified abdominal pain Vitamin D 25-OH (D2 and D3) Today E55.9 - Vitamin D deficiency, unspecified Vitamin B12 and Folate Today R19.7 - Diarrhea, unspecified TSH reflex Free T4 Today K59.00 - Constipation, unspecified Lipase Today R10.9 - Unspecified abdominal pain H pylori Ag Stool Today K21.9 - Gastro-esophageal reflux disease without esophagitis GI Panel Today R19.7 - Diarrhea, unspecified Liver Panel Today R74.01 - Elevation of levels of liver transaminase levels CDiff Gene PCR Today R19.7 - Diarrhea, unspecified Medications: New methylcellulose (laxative) (Citrucel) 500 mg PO DAILY 30 tabs 2RF K59.00 - Constipation, unspecified Coding Level of Care Code Est Pt Level 4 (76936) Diagnoses Hereditary hemochromatosis E83.110 Hemochromatosis type: hereditary Gastroesophageal reflux disease, unspecified whether esophagitis present K21.9 Esophagitis presence: esophagitis presence not specified Irritable bowel syndrome with diarrhea K58.0 Irritable bowel syndrome type: with diarrhea Functional diarrhea K59.1 Diarrhea type: functional diarrhea Pain of upper abdomen R10.10 Abdominal location: upper abdomen, unspecified Time Spent (min) 35 Comment 20 minutes spent with patient and additional 15 minutes spent reviewing his records
[2023-03-28 10:07] VITALS: BP 125/85; PULSE 73; BMI 25.2
== END 2023-03-28 10:39 | disposition home or self-care (01) ==
PROVIDERS: PCP General Practice; Visit Provider Nurse Practitioner Family
DX: E83.110 Hereditary hemochromatosis (principal); K21.9 Gastro-esophageal reflux disease without esophagitis; K58.0 Irritable bowel syndrome with diarrhea
CPT/HCPCS: 99214

== ENCOUNTER 2023-03-28 10:00 | Outpatient (REF) | payer MEDICAID, SELFPAY ==
[2023-03-28 12:24] LABS: Blood Urea Nitrogen 17 mg/dL (9-16); C Reactive Protein < 0.10 mg/dL (< or = 0.50); Estimated Glomerular Filt Rate > 60; Lipase 27 U/L (8-78)
[2023-03-28 12:35] LABS: Vitamin B12 785 pg/mL (200-900)
[2023-03-28 12:54] LABS: Ferritin 393 ng/mL (20-250); TSH reflex Free T4 0.97 uIU/mL (0.32-4.0)
[2023-04-01 15:28] LABS: Vitamin D 25-OH, D2 <4 ng/mL; Vitamin D 25-OH, D3 27 ng/mL; Vitamin D 25-OH, Total 27 ng/mL (30-100)
== END 2023-03-28 10:01 | disposition home or self-care (01) ==
LOC: HO.LAB 10:00
PROVIDERS: PCP General Practice; Visit Provider Nurse Practitioner Family
DX: R10.11 Right upper quadrant pain (principal); E55.9 Vitamin D deficiency, unspecified; K59.00 Constipation, unspecified; R74.8 Abnormal levels of other serum enzymes; K21.9 Gastro-esophageal reflux disease without esophagitis; K58.0 Irritable bowel syndrome with diarrhea
CPT/HCPCS: 36415; 82306; 82565; 82607; 82728; 82746; 83690; 84443; 84520; 86140; 99212

== ENCOUNTER 2023-03-30 09:51 | Outpatient (REF) | payer MEDICAID, SELFPAY ==
[2023-03-30 14:15] LABS: Alanine Aminotransferase 21 U/L (0-40); Albumin Level 4.6 g/dL (3.5-5.0); Alkaline Phosphatase 76 U/L (39-117); Aspartate Amino Transferase 19 U/L (5-37); Bilirubin Direct 0.3 mg/dL (0.0-0.5); Bilirubin Total 0.7 mg/dL (0.0-1.0); Cholesterol 168 mg/dL (<200); HDL Cholesterol 35 mg/dL (>40); LDL Cholesterol Calculated 118 mg/dL (<100); Total Protein 7.9 g/dL (6.5-8.0); Triglycerides 78 mg/dL (<150)
[2023-03-30 14:48] LABS: CDiff Gene PCR NEGATIVE (Negative)
[2023-03-30 14:50] LABS: Vitamin B12 815 pg/mL (200-900)
[2023-04-03 17:48] LABS: Vitamin D 25-OH, D2 <4 ng/mL; Vitamin D 25-OH, D3 31 ng/mL; Vitamin D 25-OH, Total 31 ng/mL (30-100)
[2023-04-06 19:33] LABS: Pancreatic Elastase-1 >500 mcg/g
== END 2023-03-30 09:52 | disposition home or self-care (01) ==
LOC: HO.HMGCLDS 09:51
PROVIDERS: Nurse Practitioner Family; PCP General Practice; Visit Provider Nurse Practitioner Family
DX: R10.9 Unspecified abdominal pain (principal); E78.5 Hyperlipidemia, unspecified; R19.7 Diarrhea, unspecified; K21.9 Gastro-esophageal reflux disease without esophagitis; R74.01 Elevation of levels of liver transaminase levels; E55.9 Vitamin D deficiency, unspecified
CPT/HCPCS: 36415; 80061; 80076; 82306; 82607; 82656; 82746; 87338; 87493

== ENCOUNTER 2023-03-31 12:15 | Outpatient (REF) | payer MEDICAID, SELFPAY ==
[2023-04-01 09:59] LABS: Adenovirus F 40/41 Not Detected (Not Detect.); Astrovirus Not Detected (Not Detect.); Campylobacter Not Detected (Not Detect.); Cryptosporidium Not Detected (Not Detect.); Cyclospora cayetanensis Not Detected (Not Detect.); E. coli EAEC Not Detected (Not Detect.); E. coli EPEC Not Detected (Not Detect.); E. coli ETEC Not Detected (Not Detect.); E. coli STEC Not Detected (Not Detect.); Entamoeba histolytica Not Detected (Not Detect.); Giardia lamblia Not Detected (Not Detect.); Norovirus GI/GII Not Detected (Not Detect.); Plesiomonas shigelloides Not Detected (Not Detect.); Rotavirus A Not Detected (Not Detect.); Salmonella Not Detected (Not Detect.); Sapovirus Not Detected (Not Detect.); Shigella sp./EIEC Not Detected (Not Detect.); Vibrio Not Detected (Not Detect.); Vibrio Cholerae Not Detected (Not Detect.); Yersinia enterocolitica Not Detected (Not Detect.)
== END 2023-03-31 12:16 | disposition home or self-care (01) ==
LOC: HO.LNP 12:15
PROVIDERS: Visit Provider Nurse Practitioner Family
DX: R19.7 Diarrhea, unspecified (principal); N52.9 Male erectile dysfunction, unspecified; E83.119 Hemochromatosis, unspecified
CPT/HCPCS: 81003; 87507; 99212

== ENCOUNTER 2023-03-31 15:19 | Outpatient (AMB) | payer MEDICAID, SELFPAY ==
--- NOTE | 2023-03-31 15:56 | A.OFFVIS_ITS ---
Intake Intake Visit Reasons: 6m/labs Intake Note: Patient presents today for a follow-up on Lab Results: Meds- None Allergies to Antibiotic- None Blood Thinner- None [employer] Required: No Accompanied by: Self / Same As Patient Allergies tadalafil [From Cialis] Allergy (Severe, Verified 04/05/23 10:52) Unknown Vbimaem-RNN-OiG Reductase Inhibitor Allergy (Verified 04/05/23 10:52) Palpitations rosuvastatin Adverse Reaction (Mild, Verified 04/05/23 10:52) Unknown metronidazole [From Flagyl] Adverse Reaction (Unknown, Verified 04/05/23 10:52) Nausea, sweats, Diarrhea HPI HPI Comments History of Present Illness Details Arben is a 36-year-old male who presents to the office for discussion of renal US and testosterone blood work test results. 03/31/23- Discussed that hemochromatosis can have affect on FSH and LH product ion leading to hypogonadism Discussed his levels are within normal limits. Will monitor Pt stopped cialis, had venous engorgement Pt states he has seen a Marketing Project Specialist in [place] for kidney cysts Review of chart: 09/06/22--Arben is a 36-year-old male wh o presents to the clinic for follow up for renal cyst and ED. LV--05/28/2022--The patient complains inability maintain erections. Since he was seen in May he states he has taken multivitamins with maderate benefits for a while. The patient is states problem started since the last blood withdrawal procedure on May 14. States being light-headedness and dizzy when try to attempt it. States having chronic gas and bloating along with constipation. PMH- hemochromatosis. The patient has a previous history of STD infection, He was treated for STD with doxycycline hyclate. 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 Has a history of kidney disease in his family. his grandmother has poly cystic kidney disease. Discussed recent renal US-- right renal cyst c/w benign simple cyst - no follow up imaging required Review of chart: CAT scan results reviewed--07/21/21--Bilateral Bosniak class I renal cysts are present. CAT scan results reviewed--08/05/20--Bilateral renal cysts without radiopaque calculi or hydronephrosis. USG--03/26/21--RIGHT KIDNEY: Midpole cyst. 2.4 x 2.3 x 3.4 cm noted. Plan-- Monitor labs- Testosterone, FH, LH, PFSH Medical History Thrombosed external hemorrhoid Autosomal dominant hereditary hemochromatosis Mild intermittent allergic 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 Mood disorder Dizziness Paresthesia Thyroid nodule Anxiety HTN (hypertension) Surgical History Hx of colonoscopy S/P fine needle aspiration Hx of wisdom tooth extraction Family History Father CLL (chronic lymphocytic leukemia) Diabetes Paternal Grandfather Diabetes Maternal Grandmother H/O heart bypass surgery Mother Drug abuse Social History Household Members: None Housing: Apartment Are you a primary in home caregiver to a significant other at home: No Do you presently have visiting nurse or other home services: No Alcohol intake: never Patient Tobacco Use Status: Never used Tobacco Advance Directives: No Advance Directives Information Provided: No service: No Current occupational status: unemployed Review of Systems Const All systems reviewed & are unremarkable except as noted in HPI and below Reports no additional complaints Eyes Reports no additional complaints ENT Denies neck pain Card Denies leg edema Resp Denies cough GI Denies constipation Musc Reports no additional complaints and Denies neck pain Skin/Breast Denies rash and Denies unusual bruising Neuro Reports no additional complaints Psych Reports no additional complaints Endo Reports no additional complaints Douglas/Lymph Reports no additional complaints Aller/Immun Reports no additional complaints Results AMB Urinalysis, Automated UA Leukoctes 0 Sage/uL Last Edit by VANADNA Posada on 03/31/23 16:01 UA Nitrite Negative Last Edit by VANDANA Posada on 03/31/23 16:01 UA Urobilinogen 0.2 mg/dL Last Edit by Bronson Noriega, A on 03/31/23 16:0 1 UA Protein 15 mg/dL Last Edit by Bronson Noriega, A on 03/31/23 16:01 UA pH 6.0 Last Edit by Bronson Noriega, A on 03/31/23 16:01 UA Blood 0 Adria/uL Last Edit by Bronson Noriega, A on 03/31/23 16:01 UA Specific Ruby 1.025 Last Edit by Bronson Noriega, RMA on 03/31/23 16: 01 UA Ketone Negative Last Edit by Bronson Noriega, A on 03/31/23 16:01 UA Bilirubin 0 mg/dL Last Edit by Bronson Noriega, A on 03/31/23 16:01 UA Glucose 0 mg/dL Last Edit by Bronson Noriega, A on 03/31/23 16:01 Results Reviewed Results Reviewed: Laboratory Last Values Urine pH (Auto) 6.0 03/31/23 15:57 Specific Ruby (Auto) 1.025 03/31/23 15:57 Urine Protein (Auto) 15 mg/dL 03/31/23 15:57 Glucose (UA)(Auto) 0 mg/dL 03/31/23 15:57 Urine Ketones (Auto) Negative 03/31/23 15:57 Urine Blood (Auto) 0 Adria/uL 03/31/23 15:57 Urine Nitrite (Auto) Negative 03/31/23 15:57 Urine Bilirubin (Auto) 0 mg/dL 03/31/23 15:57 Urine Urobilinogen (Auto) 0.2 mg/dL 03/31/23 15:57 Leukocyte Esterase (Auto) 0 Sage/uL 03/31/23 15:57 Assessment & Plan Assessment & Plan (1) Erectile dysfunction: Code(s): N52.9 - Male erectile dysfunction, unspecified (2) Renal cyst: Code(s): N28.1 - Cyst of kidney, acquired (3) Hemochromatosis: Code(s): E83.119 - Hemochromatosis, unspecified Qualifiers: Hemochromatosis type: hereditary Qualified Code(s): E83.110 - Hereditary hemochromatosis Plan Monitor labs- Testosterone, FH, LH, Orders: Orders AMB Urinalysis Automated 03/31/23 Z13.9 - Encounter for screening, unspecified Follicle Stimulating Hormone 2 Months N52.9 - Male erectile dysfunction, unspecified, E83.119 - Hemochromatosis, unspecified Lutenizing Hormone 03/31/23 N52.9 - Male erectile dysfunction, unspecified, E83.119 - Hemochromatosis, unspecified Testosterone, Free/Total 03/31/23 N52.9 - Male erectile dysfunction, u nspecified, E83.119 - Hemochromatosis, unspecified Coding Level of Care Code Est Pt Level 4 (65658) Diagnoses Erectile dysfunction N52.9 Renal cyst N28.1 Hereditary hemochromatosis E83.110 Hemochromatosis type: hereditary
== END 2023-03-31 16:43 | disposition home or self-care (01) ==
PROVIDERS: PCP Student in an Organized Health Care Education/Training Program; Visit Provider Urology
DX: N52.9 Male erectile dysfunction, unspecified (principal); N28.1 Cyst of kidney, acquired; E83.110 Hereditary hemochromatosis
CPT/HCPCS: 99214

== ENCOUNTER 2023-04-05 10:46 | Outpatient (AMB) | payer MEDICAID, SELFPAY ==
[2023-04-05 10:51] VITALS: BP 128/90; PULSE 88; BMI 25.5
--- NOTE | 2023-04-05 10:51 | MHC.OFFVIS ---
Intake Vital Signs 04/05/23 10:51 Height 5 ft 11 in Weight 182 lb 15.739 oz BMI 25.5 BP 128/90 H Blood Pressure Location Lt brachial Position Sitting Pulse 88 Intake Visit Reasons: follow up per DC Intake Note: follow up Freight Conductor Required: No Accompanied by: Self / Same As Patient Allergies tadalafil [From Cialis] Allergy (Severe, Verified 04/05/23 10:52) Unknown Vfluwfj-FBH-YaM Reductase Inhibitor Allergy (Verified 04/05/23 10:52) Palpitations rosuvastatin Adverse Reaction (Mild, Verified 04/05/23 10:52) Unknown metronidazole [From Flagyl] Adverse Reaction (Unknown, Verified 04/05/23 10:52) Nausea, sweats, Diarrhea Medication List - Last Reconciled 04/05/23 by Erik Garcia MD cholecalciferol (vitamin D3) 50 mcg PO DAILY sucralfate 1 g PO BEDTIME sucralfate 10 mL PO BEDTIME HPI HPI Comments History of Present Illness Details Arben is here for consultation. He has generally been seen by our nurse practitioner, Cuca Jones and this his 1st visit with me. He has numerous ER visits for various reasons. In prior visits, he had complained of what was thought to be atypical chest discomfort and palpitations. Over the last few years, he has had extensive workup including dozens of troponins, EKGs, couple of echocardiograms, stress test as well as Holter. Essentially, these have been unremarkable. Today, he is main complaint is that over the last couple of weeks or so, he has been feeling dizzy upon getting up from a chair or seated position. Somewhat suggestive of orthostatic hypotension. However, he does not have a history of the same. Otherwise, significant anxiety at baseline and he states he talks to his therapist once a week. [facility] Medical History Thrombosed external hemorrhoid Autosomal dominant hereditary hemochromatosis Mild intermittent allergic 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 Mood disorder Dizziness Paresthesia Thyroid nodule Anxiety HTN (hypertension) Surgical History Hx of colonoscopy S/P fine needle aspiration Hx of wisdom tooth extraction Family History Father CLL (chronic lymphocytic leukemia) Diabetes Paternal Grandfather Diabetes Maternal Grandmother H/O heart bypass surgery Mother Drug abuse Social History Household Members: None Housing: Apartment Are you a primary school child care attendant to a significant other at home: No Do you presently have visiting nurse or other home services: No Alcohol intake: never Patient Tobacco Use Status: Never used Tobacco service: No Current occupational status: unemployed Review of Systems Const Denies weakness ENT Denies dizziness Card Denies chest pain, Denies chest pain with activity, Denies syncope, Denies pedal edema, Denies edema, Denies leg edema, Denies lightheadedness, Denies dyspnea, Denies dyspnea on exertion and Denies orthopnea Resp Denies cough, Denies dyspnea and Denies dyspnea on exertion GI Denies hematochezia and Denies change in stool character Musc Denies abnormal gait, Denies muscle cramps, Denies muscle weakness, Denies numbness, Denies radiating pain into limb and Denies tingling Neuro Denies abnormal gait, Denies dizziness, Denies syncope, Denies numbness, Denies tingling and Denies weakness Physical Exam Vital Signs: Last Vital Signs Pulse 88 04/05/23 10:51 BP 128/90 H 04/05/23 10:51 BMI result Body Mass Index 25.5 Const General: comfortable and no acute distress Orientation/consciousness: patient oriented x3 HEENT Other: Unremarkable Head: Yes normal to inspection Neck Neck: Yes normal visual inspection Chest Chest palpation & inspection: normal inspection of the chest Resp Auscultation: clear to auscultation bilaterally Cardio Palpation: normal PMI Heart sounds: S1 normal heart sound present, S2 normal heart sound present, no gallops, no murmurs and no rubs GI Palpation (GI): Soft to palpation Back/Spine/Pelvis Other: unremarkable Skin General skin exam: no rashes or lesions noted Neuro General: patient oriented x3 Extrem General: Yes normal to inspection Psych Mental Status: mental status grossly normal Assessment & Plan Assessment & Plan (1) Orthostatic dizziness: Code(s): R42 - Dizziness and giddiness Plan There are about 16 sets of high sensitivity troponins available for review for the last 3 years or so and they are all normal. He also has numerous EKGs and they have not shown any significant abnormalities either In the most recent echocardiogram from last week, LVEF at 61%. Normal diastolic function and otherwise unremarkable. Another study from 2021 also within normal limits. Holter monitor from last month with normal sinus rhythm at 67/Min and no significant findings otherwise. Exercise stress echocardiogram from 2019 unremarkable at 7 METS Overall, history of hemochromatosis but there is no evidence of any cardiomyopathy or other pathological findings on testing. Main treatment should still be follow-up with Hematology and we discussed about that. With regard to his dizziness on getting up, may proceed with tilt-table testing for evaluation. Otherwise, a lot of his symptoms are most likely from anxiety and he states he talks to his therapist once a week. Mainly provided reassurance. Total time spent including review of pertinent data, counseling, documentation, coordination of care-40 minutes. Orders: Orders ECG Tilt Table Test Today R42 - Dizziness and giddiness Coding Level of Care Code Est Pt Level 4 (06370) Diagnoses Orthostatic dizziness R42
== END 2023-04-05 11:19 | disposition home or self-care (01) ==
PROVIDERS: PCP General Practice; Referring Provider General Practice; Visit Provider Internal Medicine
DX: R42 Dizziness and giddiness (principal)
CPT/HCPCS: 99214

== ENCOUNTER → 2023-04-05 10:46 | Outpatient (BNVA) | payer MEDICAID, SELFPAY | PROVIDERS: PCP General Practice; Visit Provider Internal Medicine | DX: R42 Dizziness and giddiness (principal) | CPT/HCPCS: 99212 ==

== ENCOUNTER 2023-05-11 13:45 | Day surgery (SDC) | payer MEDICAID, SELFPAY ==
--- NOTE | 2023-05-10 10:31 | HO.ANESPROP2 ---
Documented by User: Blessing Urbano NP 05/10/23 10:35 HPI - Anesthesia Eval Consult details Narrative: 37yo M for Upper Endoscopy w/u by [facility] [place] cardiology for atypical CP, palps, dizziness all negative. Tilt table test pending, but ok to proceed with EGD prior per cardiology. 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) DVT (deep venous thrombosis) (Acute) Blood pressure alteration (Acute) Chest discomfort (Acute) Palpitations (Acute) Hemochromatosis (Chronic) Thyroid nodule (Acute) Past Medical History Medical History Thrombosed external hemorrhoid Autosomal dominant hereditary hemochromatosis Mild intermittent allergic 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 Mood disorder Dizziness Paresthesia Thyroid nodule Anxiety HTN (hypertension) Family History Family History Father CLL (chronic lymphocytic leukemia) Diabetes Paternal Grandfather Diabetes Maternal Grandmother H/O heart bypass surgery Mother Drug abuse Surgical History Surgical History Hx of colonoscopy S/P fine needle aspiration Hx of wisdom tooth extraction Social History Social History Household Members: None Housing: Apartment Are you a primary nursing care attendant to a significant other at home: No Do you presently have visiting nurse or other home services: No Alcohol intake: never Patient Tobacco Use Status: Never used Tobacco Use of substances other than those prescribed or required for medical reasons: No Are you DNR?: No Advance Directives: No Advance Directives Information Provided: Yes service: No Current occupational status: unemployed Meds Allergies Allergy/AdvReac Type Severity Reaction Status Date / Time tadalafil [From Cialis] Allergy Severe Unknown Verified 04/05/23 10:52 [id number] Reductase Allergy Palpitation Verified 04/05/23 10:52 Inhibitor s rosuvastatin AdvReac Mild Unknown Verified 04/05/23 10:52 metronidazole [From Flagyl] AdvReac Unknown Nausea, Verified 04/05/23 10:52 sweats, Diarrhea Exam Pertinent Lab Results Pertinent Lab Results: Laboratory Tests 03/22/23 03/22/23 03/28/23 13:58 13:58 11:01 WBC 8.0 Hgb 16.8 Hct 46.6 Plt Count 252 Sodium 138 Potassium 3.6 Chloride 101 Carbon Dioxide 28 BUN 17 H Creatinine 0.99 Narrative Narrative: Per 03/2023 cardiology office visit note: There are about 16 sets of high sensitivity troponins available for review for the last 3 years or so and they are all normal. He also has numerous EKGs and they have not shown any significant abnormalities either In the most recent echocardiogram from last week, LVEF at 61%. Normal diastolic function and otherwise unremarkable. Another study from 2021 also within normal limits. Holter monitor from last month with normal sinus rhythm at 67/Min and no significant findings otherwise. Exercise stress echocardiogram from 2019 unremarkable at 7 METS Assessment and Plan Assessment Anesthesia Assessment: Chart Reviewed Documented by User: Tracie Gore MD 05/11/23 14:21 [facility] Past Medical History Medical History Thrombosed external hemorrhoid Autosomal dominant hereditary hemochromatosis Mild intermittent allergic 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 Mood disorder Dizziness Paresthesia Thyroid nodule Anxiety HTN (hypertension) Family History Family History Father CLL (chronic lymphocytic leukemia) Diabetes Paternal Grandfather Diabetes Maternal Grandmother H/O heart bypass surgery Mother Drug abuse Family history of problems with anesthesia: No Surgical History Surgical History Hx of colonoscopy S/P fine needle aspiration Hx of wisdom tooth extraction History of Problems with Anesthesia: No Social History Social History Household Members: None Housing: Apartment Are you a primary nursing care attendant to a significant other at home: No Do you presently have visiting nurse or other home services: No Alcohol intake: never Patient Tobacco Use Status: Never used Tobacco Use of substances other than those prescribed or required for medical reasons: No Are you DNR?: No Advance Directives: No Advance Directives Information Provided: Yes service: No Current occupational status: unemployed Meds Allergies Allergy/AdvReac Type Severity Reaction Status Date / Time tadalafil [From Cialis] Allergy Severe Unknown Verified 04/05/23 10:52 Jhpogig-WWV-EtI Reductase Allergy Palpitation Verified 04/05/23 10:52 Inhibitor s rosuvastatin AdvReac Mild Unknown Verified 04/05/23 10:52 metronidazole [From Flagyl] AdvReac Unknown Nausea, Verified 04/05/23 10:52 sweats, Diarrhea Exam Airway Mallampati Class: II TM Dist: >3cm Neck ROM: Full Heart: rrr Lungs: cta Assessment and Plan Assessment Anesthesia Assessment: Anesthesia Plan Discussed Final Anesthetic Review Family History of Problems with Anesthesia: No History of Problems with Anesthesia: No NPO: Yes ASA Class: II Final Preanesthetic Review: No Changes in Pt Med Stat, Meds/Allgs Chart Reviewed and Consent Obtained/Reviewed Patient Risk: Intermediate Procedure Risk: Low Anesthetic Plan Anesthetic Plan: MAC: Disposition: Standard PACU
[2023-05-11 14:01] VITALS: BMI 25.7
[2023-05-11 14:07] VITALS: BP 149/94; PULSE 93; RESP 16; TEMP 36.8; O2SAT 96
--- NOTE | 2023-05-11 14:16 | P.HPSUR_ITS ---
Pre-Procedural Eval Section A - 24 Hr Update-Section A only Date of Service: 05/11/23 Section B - Complete if H&P > 30 days Chief Complaint: epigastric pain Relevant Family History (Specify if Yes): No Relevant Social History: None Present Medications: see Short Stay Collaborative assessment Medical History: Significant History (Thrombosed external hemorrhoid Autosomal dominant hereditary hemochromatosis Mild intermittent allergic 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 Mood disorder Dizziness Paresthesia Thyroid nodule Anxiety HTN (hypertension)) History of Previous Operations: Relevant previous surgery/procedure and date(s) (Hx of colonoscopy S/P fine needle aspiration Hx of wisdom tooth extraction) Allergies: Allergies Allergy/AdvReac Type Severity Reaction Status Date / Time tadalafil [From Cialis] Allergy Severe Unknown Verified 04/05/23 10:52 Fkvbpzz-FAG-JnD Reductase Allergy Palpitation Verified 04/05/23 10:52 Inhibitor s rosuvastatin AdvReac Mild Unknown Verified 04/05/23 10:52 metronidazole [From Flagyl] AdvReac Unknown Nausea, Verified 04/05/23 10:52 sweats, Diarrhea Review of Systems Sugical H&P ROS: Negative: Constitution, Cardiovascular, Respiratory, Neurological, Psychiatric, Hem-Onc, Allergic/Immunologic, Gastrointestinal, Genitourinary, Musculoskeletal, Integumentary, Endocrine and Eyes/Ears/Nose/Throat Exam Surgical H&P Exam: Normal: HEENT, Normal: Heart, Normal: Lungs, Normal: Extremities, Normal: Abdomen, Normal: Skin and Normal: Neurological Plan Diagnosis/Plan: Unchanged I have reviewed the history and physical and performed a pertinent physical examination on my patient. No changes have occurred unless specified. [address] [address] Anesthesia Pre-Op Evaluation Time Spent With Patient Time: Total time managing care of this patient today ____ minutes.
[2023-05-11] MEDS: Lactated Ringers 1,000 ML 100 ML IVCONT (14:20)
--- NOTE | 2023-05-11 14:40 | W.PM.OPN ---
Operative Note Operative Note Date of Service: 05/11/23 Narrative: Procedure Description: EGD Indication: epigastric pain Anesthesia: MAC FLEXIBLE TRANSORAL UPPER GASTROINTESTINAL ENDOSCOPY UPPER ENDOSCOPY Consent: Indications for the procedure and potential complications of bleeding, perforation, reaction to medications and missed diagnosis were discussed with the patient and informed consent was obtained. Instrument: Olympus GIF H 190 J mid size upper endoscope Monitoring: Vital signs and clinical assessment, continuous EKG monitoring, Pulse oximetry, Carbon Dioxide monitoring and blood pressure monitoring were done throughout the procedure. Procedure: The patient was placed in the left lateral decubitis position and pre-procedure medications were administered and a bite block was placed. The endoscope was inserted into the mouth and advanced under direct vision to the third part of duodenum. A careful inspection was made as the upper endoscope was withdrawn including a retroflexed examination of the proximal stomach; Findings and interventions are described below. Findings: Larynx:normal Esophagus: GE junction at 40 cm, diaphragm hiatus at 40 cm, swollen edematous and erythematous GEJ, bx taken Stomach: patchy erythema with few erosions in antrum . Biopsies were obtained. Grade 2 flap valve on retroflexed examination of the cardia. Duodenum: patchy bulbar erythema, bx taken Intervention: Biopsies as noted above, Impression/Findings: erosive gastritis duodenitis esophagitis PLAN: Trial of PPi if agrees and see if improves GERD precautions
[2023-05-11 14:46] VITALS: BP 124/87; PULSE 92; RESP 16; TEMP 36.5; O2SAT 90
[2023-05-11 15:01] VITALS: BP 123/88; PULSE 98; RESP 16; O2SAT 95
== END 2023-05-11 16:30 | disposition home or self-care (01) ==
PROVIDERS: PCP General Practice; Visit Provider Internal Medicine Gastroenterology
PROC: 0DJ08ZZ Inspection of Upper Intestinal Tract, Via Natural or Artificial Opening Endoscopic (ICD-10-PCS; CPT 43235; principal; 2023-05-11 14:30)
DX: K21.9 Gastro-esophageal reflux disease without esophagitis (principal); K29.60 Other gastritis without bleeding; K29.80 Duodenitis without bleeding; K20.90 Esophagitis, unspecified without bleeding; K44.9 Diaphragmatic hernia without obstruction or gangrene; K58.0 Irritable bowel syndrome with diarrhea; I10 Essential (primary) hypertension; E83.110 Hereditary hemochromatosis; J45.20 Mild intermittent asthma, uncomplicated; Z79.899 Other long term (current) drug therapy; Z88.8 Allergy status to other drugs, medicaments and biological substances
CPT/HCPCS: 43239; 88305; 88313; 88342; J2250; J2704

== ENCOUNTER → 2023-05-11 13:45 | Outpatient (BNV) | payer MEDICAID, SELFPAY | PROVIDERS: PCP General Practice; Visit Provider Internal Medicine Gastroenterology | DX: R10.13 Epigastric pain (principal); K29.90 Gastroduodenitis, unspecified, without bleeding; K20.90 Esophagitis, unspecified without bleeding | CPT/HCPCS: 43239 ==

== ENCOUNTER 2023-05-20 20:54 | Emergency (ER) | payer MEDICAID, SELFPAY ==
[2023-05-20 22:11] VITALS: BP 150/90; BP 150/98; PULSE 86; PULSE 89; RESP 18; TEMP 36.9; O2SAT 97; BMI 25.7
[2023-05-21 01:31] LABS: MANUAL DIFF FLAG NO
[2023-05-21 01:32] LABS: Basophils Absolute Auto 0.1 X10*3/uL (0.0-0.2); Basophils Percent Auto 0.7 % (0-2); Eosinophils Absolute Auto 0.1 X10*3/uL (0.0-0.4); Eosinophils Percent Auto 1.4 % (0-4); Hematocrit 50.5 % (42.0-52.0); Hemoglobin 18.3 g/dl (14.0-18.0); Imm Gran Abs Auto 0.02 X10*3/uL (0.00-0.03); Imm Gran Pct Auto 0.3 % (0.0-0.4); Lymphocytes Absolute Auto 2.2 X10*3/uL (1.2-4.9); Lymphocytes Percent Auto 30.7 % (20-40); Mean Corpuscular HGB Conc 36.2 g/dl (31.0-36.0); Mean Corpuscular Hemoglobin 32.2 pg (27.0-33.0); Mean Corpuscular Volume 88.8 fL (80.0-98.0); Mean Platelet Volume 9.5 fL (9.4-12.4); Monocytes Absolute Auto 0.4 X10*3/uL (0.1-1.2); Monocytes Percent Auto 5.7 % (2-11); Neutrophils Absolute Auto 4.4 x10*3/uL (2.0-8.3); Neutrophils Percent Auto 61.2 % (45-73); Platelet Count 244 X10*3/uL (160-400); Red Blood Count 5.69 X10*6/uL (4.60-5.80); Red Cell Distribution Width 11.6 % (11.0-16.0); White Blood Count 7.2 X10*3/uL (4.8-10.8)
[2023-05-21 01:49] LABS: Alanine Aminotransferase 20 U/L (0-40); Albumin Level 4.6 g/dL (3.5-5.0); Alkaline Phosphatase 101 U/L (39-117); Anion Gap 14 (12-20); Aspartate Amino Transferase 15 U/L (5-37); Bilirubin Total 0.5 mg/dL (0.0-1.0); Blood Urea Nitrogen 10 mg/dL (9-16); Calcium 9.7 mg/dL (8.4-10.2); Carbon Dioxide 25 mmol/L (22-29); Chloride 107 mmol/L (96-108); Creatinine Clr Calc Pharmacy 129.7; Estimated Glomerular Filt Rate > 60; Glucose Random 94 mg/dL (60-115); Potassium 3.8 mmol/L (3.3-5.1); Sodium 142 mmol/L (135-145); Total Protein 7.7 g/dL (6.5-8.0)
[2023-05-21 02:37] VITALS: BP 131/86; PULSE 62; RESP 18; TEMP 36.9; O2SAT 97
[2023-05-21 03:20] LABS: Lipase 28 U/L (8-78)
--- NOTE | 2023-05-21 03:29 | ED_ITS ---
HPI - General Adult General Chief complaint: General Medical Stated complaint: upper abd pain after dinner, stabbing pain resolve Time Seen by Provider: 05/20/23 21:52 Source: patient Mode of arrival: ambulatory Limitations: no limitations History of Present Illness HPI narrative: 37 yo male with DVT, anxiety, hemocrhomatosis, HTN, presents with tingling in fingers, fluctuations in BP up to 150s at times then normal in 2 hours, fluttering feeling in RUQ after eating for the past week or so. He has had this before. He is compliant with medications. He is frustrated his BP changes so much. MD complaint: BP, abdominal issues, tingling Onset (ago): week(s) (1) Location: abdomen Severity: moderate Quality: aching Pain Consistency: intermittent Relieving factors: none Exacerbating factors: eating Associated symptoms: other (tingling, feeling flush, nausea) Treatments prior to arrival: none Related Data Previous Rx's Medication Instructions Recorded sucralfate 100 mg/mL oral 10 ml PO BEDTIME #400 mL 04/01/23 suspension cholecalciferol (vitamin D3) 50 50 mcg PO DAILY #30 caps 04/05/23 mcg (2,000 unit) capsule pantoprazole 40 mg tablet,delayed 40 mg PO DAILY #60 tabs 05/11/23 release Allergies Allergy/AdvReac Type Severity Reaction Status Date / Time tadalafil [From Cialis] Allergy Severe Unknown Verified 04/05/23 10:52 Hmbyarz-ZIQ-ViX Reductase Allergy Palpitation Verified 04/05/23 10:52 Inhibitor s rosuvastatin AdvReac Mild Unknown Verified 04/05/23 10:52 metronidazole [From Flagyl] AdvReac Unknown Nausea, Verified 04/05/23 10:52 sweats, Diarrhea Review of Systems 2 Review of Systems: Constitutional : No Weight loss, No Fever, No Chills ENT/Mouth : No sore throat, No Rhinorrhea Eyes: No Swelling, No Redness Cardiovascular : No Chest Pain, No SOB, No Edema Respiratory : No Cough, No Sputum, No Wheezing Gastrointestinal : Positive Nausea, no Vomiting, no Diarrhea, positive abdominal Pain, No Hematochezia, No Melena Genitourinary : No Dysuria, No Urinary Frequency, No Hematuria, No Urgency Musculoskeletal : No joint pain, No Myalgias, No Joint Swelling Skin : No Skin Lesions, No rash Neuro : No Weakness, No Numbness, No Dizziness, No Headache All other systems reviewed and are negative. [facility] Past Medical History Attestation statement: The following information was validated with the patient. Source: old records reviewed Medical History Thrombosed external hemorrhoid Autosomal dominant hereditary hemochromatosis Mild intermittent allergic 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 Mood disorder Dizziness Paresthesia Thyroid nodule Anxiety HTN (hypertension) Surgical History Hx of colonoscopy S/P fine needle aspiration Hx of wisdom tooth extraction Family History Family History Father CLL (chronic lymphocytic leukemia) Diabetes Paternal Grandfather Diabetes Maternal Grandmother H/O heart bypass surgery Mother Drug abuse Social History Social History Household Members: None Housing: Apartment Are you a primary child caregiver to a significant other at home: No Do you presently have visiting nurse or other home services: No Alcohol intake: never Patient Tobacco Use Status: Never used Tobacco Advance Directives: No Advance Directives Information Provided: No service: No Current occupational status: unemployed Physical Exam ED Vital Signs: Vital Signs - 24 hr 05/20/23 22:11 05/21/23 02:37 05/21/23 04:06 Temperature 98.4 F 98.4 F 98.4 F Pulse Rate 89 62 62 Respiratory Rate 18 18 18 Blood Pressure 150/98 H 131/86 131/86 Pulse Oximetry 97 97 97 Oxygen Delivery Method Room Air Room Air Room Air BMI result Body Mass Index 25.7 Appearance: Alert. Oriented X3. No acute distress. Anxious Eyes: Pupils equal, round and reactive to light. ENT: Pharynx normal. Neck: Normal inspection. Neck supple. CVS: Normal heart rate and rhythm. Pulses normal. Respiratory: No respiratory distress. Breath sounds normal. Abdomen: Soft and nontender. Skin: Skin warm and dry. Normal skin color. Normal skin turgor. Extremities: No lower extremity edema. No calf ttp Neuro: Oriented X 3. No motor deficit. No sensory deficit. Medical Decision Making Medical Decision Making MDM Narrative: 37 yo male with multiple medical problems here with fluctuating BP but no signs of end organ damage and intermittent upper abdominal pain worse with eating has had endoscopy and prior work up at this time labs reassuring should donate blood soon he is aware. Will add on pepcid for one week to see if this improves symptoms. Anticipate DC home overall not toxic and well appearing Differential Diagnosis Differential Diagnoses: The differential diagnosis associated with the presentation includes anxiety, gastritis, HTN, autonomic issues, elevated Fe, hemochromatosis Lab Data MDM Lab Attestation statement: I reviewed the patient's lab results. 05/21/23 01:19 05/21/23 01:19 Labs: Lab Results 05/21/23 Range/Units 01:19 WBC 7.2 (4.8-10.8) X10*3/uL RBC 5.69 (4.60-5.80) X10*6/uL Hgb 18.3 H (14.0-18.0) g/dl Hct 50.5 (42.0-52.0) % MCV 88.8 (80.0-98.0) fL MCH 32.2 (27.0-33.0) pg MCHC 36.2 H (31.0-36.0) g/dl RDW 11.6 (11.0-16.0) % Plt Count 244 (160-400) X10*3/uL MPV 9.5 (9.4-12.4) fL Immature Gran % (Auto) 0.3 (0.0-0.4) % Neut % (Auto) 61.2 (45-73) % Lymph % (Auto) 30.7 (20-40) % [place] % (Auto) 5.7 (2-11) % Eos % (Auto) 1.4 (0-4) % Baso % (Auto) 0.7 (0-2) % Lymph # (Auto) 2.2 (1.2-4.9) X10*3/uL [place] # (Auto) 0.4 (0.1-1.2) X10*3/uL Eos # (Auto) 0.1 (0.0-0.4) X10*3/uL Baso # (Auto) 0.1 (0.0-0.2) X10*3/uL Abs Immat Gran (auto) 0.02 (0.00-0.03) X10*3/uL Absolute Neuts (auto) 4.4 (2.0-8.3) x10*3/uL Absolute Nucleated RBC 0.000 (0.0-0.012) X10*3/uL Nucleated RBC % (auto) 0.0 (0.0-0.2) /100WBC Sodium 142 (135-145) mmol/L Potassium 3.8 (3.3-5.1) mmol/L Chloride 107 (96-108) mmol/L Carbon Dioxide 25 (22-29) mmol/L Anion Gap 14 (12-20) BUN 10 (9-16) mg/dL Creatinine 0.83 (0.5-1.4) mg/dL Estim Creat Clear Calc 129.7 Estimated GFR > 60 Random Glucose 94 (60-115) mg/dL Calcium 9.7 (8.4-10.2) mg/dL Ferritin 315 H (20-250) ng/mL Total Bilirubin 0.5 (0.0-1.0) mg/dL AST 15 (5-37) U/L ALT 20 (0-40) U/L Alkaline Phosphatase 101 (39-117) U/L Total Protein 7.7 (6.5-8.0) g/dL Albumin 4.6 (3.5-5.0) g/dL Lipase 28 (8-78) U/L Independent Historian Clinical information obtained from an independent historian. History obtained from or confirmed by: Other External Record Review External record reviewed: Inpatient record Discharge Plan Discharge Clinical Impression: Elevated blood pressure reading, Colicky epigastric pain Patient Disposition: Home, Self-Care Instructions: Hypertension (ED), Epigastric Pain (ED) Additional Instructions: add on pepcid 20mg daily to see if that helps follow up with your doctor about your blood pressure continue your regular diet return for any worsening symptoms or concerns you could probably donate blood at this time ferritin will be available on the portal Prescriptions: No Action sucralfate 100 mg/mL suspension 10 ml PO BEDTIME Qty: 400 3RF cholecalciferol (vitamin D3) 50 mcg (2,000 unit) capsule 50 mcg PO DAILY Qty: 30 3RF pantoprazole 40 mg tablet,delayed release (DR/EC) 40 mg PO DAILY Qty: 60 2RF Interventions: ED Discharge Assessment Last Done: 05/21/23 04:06 Discharge Date/Time: 05/21/23 04:10
[2023-05-21 03:55] LABS: Ferritin 315 ng/mL (20-250)
[2023-05-21 04:06] VITALS: BP 131/86; PULSE 62; RESP 18; TEMP 36.9; O2SAT 97
[2023-05-21 04:25] LABS: Iron 137 mcg/dL (45-160); Percent Iron Saturation 53 % (15-50); Total Iron Binding Capacity 258 mcg/dL (228-428); Unsaturated Iron Binding 121 ug/dL
== END 2023-05-21 04:10 | disposition home or self-care (01) ==
PROVIDERS: Emergency Provider Emergency Medicine; PCP General Practice
DX: R10.13 Epigastric pain (principal); I10 Essential (primary) hypertension; R10.11 Right upper quadrant pain
CPT/HCPCS: 36415; 80053; 82728; 83540; 83690; 85025; 99283

== ENCOUNTER 2023-05-28 15:51 | Emergency (ER) | payer MEDICAID, SELFPAY ==
[2023-05-28] VITALS (8 sets, daily range): BP systolic 123–141; BP diastolic 71–96; PULSE 62–90; RESP 12–18; TEMP 36.8; O2SAT 96–98; BMI 25.4
--- NOTE | ~2023-05-28 | XR_ITS ---
EXAMINATION: XR CHEST CLINICAL INFORMATION: Chest pain COMPARISON: None available. TECHNIQUE: 2 views of the chest were obtained. FINDINGS: No significant abnormality is noted involving the heart, lungs, mediastinum, bony thorax or soft tissues. XR/XR chest 2V IMPRESSION: Unremarkable chest examination.
--- NOTE | 2023-05-28 16:29 | ED.GENADULT ---
HPI - General Adult General Chief complaint: Chest Pain Stated complaint: nausea/dizziness, no vomiting Time Seen by Provider: 05/28/23 17:21 Source: patient and EMS Mode of arrival: EMS Limitations: no limitations History of Present Illness HPI narrative: Patient comes to the emergency room complaining feeling [facility] Patient states that he has not been taking his blood pressure medications. At home it was 150/100. Patient states that his watch detected ?an arrhythmia? and called the ambulance. At this time, patient states that he feels ?queasy , denies any chest pain or shortness of breath, no abdominal pain. Related Data Previous Rx's Medication Instructions Recorded sucralfate 100 mg/mL oral 10 ml PO BEDTIME #400 mL 04/01/23 suspension cholecalciferol (vitamin D3) 50 50 mcg PO DAILY #30 caps 04/05/23 mcg (2,000 unit) capsule pantoprazole 40 mg tablet,delayed 40 mg PO DAILY #60 tabs 05/11/23 release Allergies Allergy/AdvReac Type Severity Reaction Status Date / Time tadalafil [From Cialis] Allergy Severe Unknown Verified 05/28/23 16:19 Clspmmo-ONH-BzA Reductase Allergy Palpitation Verified 05/28/23 16:19 Inhibitor s rosuvastatin AdvReac Mild Unknown Verified 05/28/23 16:19 metronidazole [From Flagyl] AdvReac Unknown Nausea, Verified 05/28/23 16:19 sweats, Diarrhea Review of Systems Review of Systems: Constitutional : No Weight loss, No Fever, No Chills, No Night Sweats, No Fatigue, No Malaise ENT/Mouth : No Hearing loss, No Ear Pain, No Nasal Congestion, No Sinus Pain, No Hoarseness, No sore throat, No Rhinorrhea, No Swallowing Difficulty Eyes: No Eye Pain, No Swelling, No Redness, No Foreign Body, No Discharge, No Vision Changes Cardiovascular : No Chest Pain, No SOB, No Dyspnea on Exertion, No Orthopnea, No Edema, complaining of lightheadedness and high blood pressure Respiratory : No Cough, No Sputum, No Wheezing, No Smoke Exposure, No Dyspnea Gastrointestinal : No Nausea, No Vomiting, No Diarrhea, No Constipation, No abdominal Pain, No Hematochezia, No Melena Genitourinary : no irregular bleeding, No Dysuria, No Urinary Frequency, No Hematuria, No Urinary Incontinence, No Urgency, No Flank Pain, No Urinary Flow Changes, No Hesitancy Musculoskeletal : No joint pain, No Myalgias, No Joint Swelling Skin : No Skin Lesions, No rash Neuro : No Weakness, No Numbness, No Paresthesias, No Loss of Consciousness, No Dizziness, No Headache Psych : No Anxiety/Panic, No Depression, No SI/HI/AH/VH, No Social Issues, Heme/Lymph: No Bruising, No Bleeding,No Lymphadenopathy Endocrine : No Polyuria, No Polydipsia, No Temperature Intolerance [facility] Past Medical History Medical History Thrombosed external hemorrhoid Autosomal dominant hereditary hemochromatosis Mild intermittent allergic 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 Mood disorder Dizziness Paresthesia Thyroid nodule Anxiety HTN (hypertension) Surgical History Hx of colonoscopy S/P fine needle aspiration Hx of wisdom tooth extraction Family History Family History Father CLL (chronic lymphocytic leukemia) Diabetes Paternal Grandfather Diabetes Maternal Grandmother H/O heart bypass surgery Mother Drug abuse Social History Social History Household Members: None Housing: Apartment Are you a primary rn critical care to a significant other at home: No Do you presently have visiting nurse or other home services: No Alcohol intake: never Patient Tobacco Use Status: Never used Tobacco Smoked in Last 30 Days: No Use of substances other than those prescribed or required for medical reasons: No Advance Directives: No Advance Directives Information Provided: No service: No Current occupational status: unemployed Physical Exam ED Vital Signs: Vital Signs - 24 hr 05/28/23 16:28 05/28/23 17:31 05/28/23 17:59 Temperature 98.3 F Pulse Rate 77 62 66 Respiratory Rate 18 Blood Pressure 139/96 H 123/71 133/77 Pulse Oximetry 98 Oxygen Delivery Method Room Air 05/28/23 17:59 05/28/23 19:47 Temperature 98.3 F Pulse Rate 70 68 Respiratory Rate 14 Blood Pressure 141/86 H 127/86 Pulse Oximetry 96 Oxygen Delivery Method Room Air BMI result Body Mass Index 25.4 Const Other: Appearance: Alert. Oriented X3. No acute distress. Eyes: Pupils equal, round and reactive to light. ENT: Pharynx normal. Neck: Normal inspection. Neck supple. No lymph nodes noted. No crepitus CVS: Normal heart rate and rhythm. Pulses normal. Normal S1 and S2 Respiratory: No respiratory distress. Breath sounds normal. No Wheezing. No rales Abdomen: Soft and nontender. No rigidity. No distention. Skin: Skin warm and dry. Normal skin color. Normal skin turgor. Extremities: No lower extremity edema. No Lacerations. No Rash Neuro: Oriented X 3. No motor deficit. No sensory deficit. Moving all extremities. No slurred speech. CN 2 through 12 grossly intact Psych: calm, cooperative, normal affect Course Course Course Narrative: RME:?37 yo male hx of hemochromatosis, PCV, HTN (not managed with meds), DVT here via EMS for eval of dizziness, nausea, and central chest pain occurring [employer] while walking around [facility]. took his BP when he got home from [facility] and is was 150s/100s, prompting him to call EMS. labs, ekg ordered. Full HPI, ROS and PE to be performed by the primary ED provider. Medical Decision Making Medical Decision Making [facility] Narrative: My interpretation of labs: Hematology normal, chemistries normal, troponin is negative, serology negative -patient has been on the monitor, no arrhythmias have been detected Cerner -orthostatic vitals are negative Patient instructed to follow-up with his primary care physician Differential Diagnosis Differential Diagnoses: The differential diagnosis associated with the presentation includes (Anxiety, faulty apple watch monitor, arrhythmias) Admission/Observation Consideration of admission/observation: Escalation of care including admission/observation considered (Given patient's history admission was considered) Lab Data [facility] Lab Attestation statement: I reviewed the patient's lab results. 05/28/23 17:44 05/28/23 17:44 Labs: Lab Results 05/28/23 05/28/23 Range/Units 17:40 17:44 WBC 9.2 (4.8-10.8) X10*3/uL RBC 5.43 (4.60-5.80) X10*6/uL Hgb 17.8 (14.0-18.0) g/dl Hct 49.1 (42.0-52.0) % MCV 90.4 (80.0-98.0) fL MCH 32.8 (27.0-33.0) pg MCHC 36.3 H (31.0-36.0) g/dl RDW 11.7 (11.0-16.0) % Plt Count 227 (160-400) X10*3/uL MPV 9.8 (9.4-12.4) fL Immature Gran % (Auto) 1.2 H (0.0-0.4) % Neut % (Auto) 78.7 H (45-73) % Lymph % (Auto) 13.8 L (20-40) % Will % (Auto) 5.1 (2-11) % Eos % (Auto) 0.4 (0-4) % Baso % (Auto) 0.8 (0-2) % Lymph # (Auto) 1.3 (1.2-4.9) X10*3/uL Will # (Auto) 0.5 (0.1-1.2) X10*3/uL Eos # (Auto) 0.0 (0.0-0.4) X10*3/uL Baso # (Auto) 0.1 (0.0-0.2) X10*3/uL Abs Immat Gran (auto) 0.11 H (0.00-0.03) X10*3/uL Absolute Neuts (auto) 7.2 (2.0-8.3) x10*3/uL Absolute Nucleated RBC 0.000 (0.0-0.012) X10*3/uL Nucleated RBC % (auto) 0.0 (0.0-0.2) /100WBC Sodium 142 (135-145) mmol/L Potassium 4.1 (3.3-5.1) mmol/L Chloride 106 (96-108) mmol/L Carbon Dioxide 26 (22-29) mmol/L Anion Gap 14 (12-20) BUN 13 (9-16) mg/dL Creatinine 0.86 (0.5-1.4) mg/dL Estim Creat Clear Calc 125.2 Estimated GFR > 60 Random Glucose 92 (60-115) mg/dL Calcium 9.7 (8.4-10.2) mg/dL Magnesium 2.1 (1.6-2.6) mg/dL Total Bilirubin 0.7 (0.0-1.0) mg/dL AST 14 (5-37) U/L ALT 18 (0-40) U/L Alkaline Phosphatase 83 (39-117) U/L Troponin I High Sens < 2.7 (<3.5-35.0) ng/L Total Protein 7.3 (6.5-8.0) g/dL Albumin 4.2 (3.5-5.0) g/dL Lipase 15 (8-78) U/L Influenza Type A (PCR) NEGATIVE (Negative) Influenza Type B (PCR) NEGATIVE (Negative) RSV RNA Qual (PCR) NEGATIVE (Negative) SARS-CoV-2 RNA (RT-PCR) NEGATIVE (Negative) Independent Interpretation I performed an independent interpretation of an: EKG (My interpretation of EKG: Normal sinus rhythm, heart rate 65, no ST segment depression or elevation, no T-wave inversion, QTC 405) Critical Care Time Critical Care Time Critical Care Time: Yes Total Critical Care Time: 45 Attestation: I have personally provided critical care time. Time includes review of lab data, radiology results, discussion with consultants, and monitoring for potential decompensation. Intervention performed as documented. Discharge Plan Discharge Clinical Impression: Dizziness Patient Disposition: Home, Self-Care Instructions: Dizziness (ED) Additional Instructions: Please follow-up with your primary care physician tomorrow. If you have any worsening or new symptoms, please return to the emergency room or call 911 Prescriptions: No Action sucralfate 100 mg/mL suspension 10 ml PO BEDTIME Qty: 400 3RF cholecalciferol (vitamin D3) 50 mcg (2,000 unit) capsule 50 mcg PO DAILY Qty: 30 3RF pantoprazole 40 mg tablet,delayed release (DR/EC) 40 mg PO DAILY Qty: 60 2RF
--- NOTE | 2023-05-28 16:32 | ECG_ITS ---
Test Reason : chest pain Blood Pressure : / mmHG Vent. Rate : 065 BPM Atrial Rate : 065 BPM P-R Int : 138 ms QRS Dur : 076 ms QT Int : 390 ms P-R-T Axes : 051 072 053 degrees QTc Int : 405 ms Normal sinus rhythm Normal ECG When compared with ECG of 22-MAR-2023 13:52, No significant change was found Referred By: Lucita Arguelles Electronically Signed By:CRUZ GARCIA
[2023-05-28 17:54] LABS: MANUAL DIFF FLAG NO
[2023-05-28 18:14] LABS: Alanine Aminotransferase 18 U/L (0-40); Albumin Level 4.2 g/dL (3.5-5.0); Alkaline Phosphatase 83 U/L (39-117); Anion Gap 14 (12-20); Aspartate Amino Transferase 14 U/L (5-37); Bilirubin Total 0.7 mg/dL (0.0-1.0); Blood Urea Nitrogen 13 mg/dL (9-16); Calcium 9.7 mg/dL (8.4-10.2); Carbon Dioxide 26 mmol/L (22-29); Chloride 106 mmol/L (96-108); Creatinine Clr Calc Pharmacy 125.2; Estimated Glomerular Filt Rate > 60; Glucose Random 92 mg/dL (60-115); Lipase 15 U/L (8-78); Magnesium 2.1 mg/dL (1.6-2.6); Potassium 4.1 mmol/L (3.3-5.1); Sodium 142 mmol/L (135-145); Total Protein 7.3 g/dL (6.5-8.0)
[2023-05-28 18:16] LABS: Basophils Absolute Auto 0.1 X10*3/uL (0.0-0.2); Basophils Percent Auto 0.8 % (0-2); Eosinophils Percent Auto 0.4 % (0-4); Hematocrit 49.1 % (42.0-52.0); Hemoglobin 17.8 g/dl (14.0-18.0); Imm Gran Abs Auto 0.11 X10*3/uL (0.00-0.03); Imm Gran Pct Auto 1.2 % (0.0-0.4); Lymphocytes Absolute Auto 1.3 X10*3/uL (1.2-4.9); Lymphocytes Percent Auto 13.8 % (20-40); Mean Corpuscular HGB Conc 36.3 g/dl (31.0-36.0); Mean Corpuscular Hemoglobin 32.8 pg (27.0-33.0); Mean Corpuscular Volume 90.4 fL (80.0-98.0); Mean Platelet Volume 9.8 fL (9.4-12.4); Monocytes Absolute Auto 0.5 X10*3/uL (0.1-1.2); Monocytes Percent Auto 5.1 % (2-11); Neutrophils Absolute Auto 7.2 x10*3/uL (2.0-8.3); Neutrophils Percent Auto 78.7 % (45-73); Platelet Count 227 X10*3/uL (160-400); Red Blood Count 5.43 X10*6/uL (4.60-5.80); Red Cell Distribution Width 11.7 % (11.0-16.0); White Blood Count 9.2 X10*3/uL (4.8-10.8)
[2023-05-28 18:23] LABS: Troponin-I High Sensitivity < 2.7 ng/L (<3.5-35.0)
[2023-05-28 20:21] LABS: Influenza A PCR NEGATIVE (Negative); Influenza B PCR NEGATIVE (Negative); Resp Syncy Virus RNA Qual PCR NEGATIVE (Negative); SARS COV2 PCR INHOUSE NEGATIVE (Negative)
--- NOTE | 2023-05-28 22:03 | PC.NURSE ---
pt requesting to speak to provider about results prior to discharge, provider aware.
== END 2023-05-28 22:44 | disposition home or self-care (01) ==
PROVIDERS: Physician Assistant Medical; Emergency Provider Emergency Medicine; PCP General Practice
DX: R07.89 Other chest pain (principal); R42 Dizziness and giddiness; R11.2 Nausea with vomiting, unspecified; Z11.52 Encounter for screening for COVID-19; Z20.822 Contact with and (suspected) exposure to COVID-19; Z79.899 Other long term (current) drug therapy
CPT/HCPCS: 0241U; 71046; 80053; 83690; 83735; 84484; 85025; 93005; 99283; 99285

== ENCOUNTER → 2023-05-28 16:32 | Outpatient (BNV) | payer MEDICAID, SELFPAY | PROVIDERS: Emergency Provider Emergency Medicine; PCP General Practice; Visit Provider Internal Medicine | DX: R07.9 Chest pain, unspecified (principal) | CPT/HCPCS: 93010 ==

== ENCOUNTER 2023-06-12 03:54 | Observation (INO) | payer MEDICAID, SELFPAY ==
[2023-06-12] VITALS (7 sets, daily range): BP systolic 115–168; BP diastolic 80–100; PULSE 64–77; RESP 11–17; TEMP 36.4–36.9; O2SAT 96–98; BMI 24.3
--- NOTE | 2023-06-12 | ECG_ITS ---
Test Reason : CHEST PAIN Blood Pressure : / mmHG Vent. Rate : 059 BPM Atrial Rate : 059 BPM P-R Int : 154 ms QRS Dur : 086 ms QT Int : 402 ms P-R-T Axes : 050 053 040 degrees QTc Int : 397 ms Artifact Sinus bradycardia Otherwise normal ECG When compared with ECG of 28-MAY-2023 17:10, No significant changes seen Referred By: Generic ED Physician Electronically Signed By:Willie Marin
--- NOTE | ~2023-06-12 | XR_ITS ---
EXAMINATION: XR CHEST CLINICAL INFORMATION: Chest pain. COMPARISON: Chest radiograph 05/28/2023. TECHNIQUE: 2 views of the chest were obtained. FINDINGS: No significant abnormality is noted involving the heart, lungs, mediastinum, bony thorax or soft tissues. XR/XR chest 2V IMPRESSION: Unremarkable examination.
--- NOTE | ~2023-06-12 | CT_ITS ---
EXAMINATION: CT ABDOMEN AND PELVIS WITHOUT CONTRAST CLINICAL INFORMATION: Abdominal pain. COMPARISON: CT abdomen/pelvis 07/21/2021. TECHNIQUE: Multidetector volumetric imaging was performed from the superior aspect of the liver through the pubic symphysis. Sagittal and coronal reformatted images were obtained on the technologist's workstation. This CT examination was performed using dose optimization techniques as appropriate, variously including the following: *Automated exposure control *Adjustment of mA and/or kV according to patient size (this includes techniques or standardized protocols for targeted exams where dose is matched to indication/reason for exam; i.e. extremities or head) *Use of iterative reconstruction technique DLP: 483 mGy-cm FINDINGS: The lack of intravenous contrast limits evaluation of the solid visceral organs including the liver, spleen, pancreas, and kidneys. LUNG BASES: Calcified granulomas. No focal consolidation or pleural effusion. LIVER, GALLBLADDER, AND BILIARY TREE: The liver is normal in size, shape, and attenuation. A few too small to characterize liver hypodensities are unchanged, favoring to represent cysts or hemangiomas. No biliary ductal dilatation is present. The gallbladder is unremarkable with no evidence of radiopaque gallstones, gallbladder wall thickening, or obvious pericholecystic inflammatory changes. PANCREAS: Unremarkable. SPLEEN: Calcified granuloma again noted. ADRENAL GLANDS: Unremarkable. KIDNEYS AND URETERS: The kidneys are normal in size, shape, and attenuation. Simple-appearing Bosniak one cortical cyst in the upper right kidney measuring 3.2 cm, for which no imaging follow-up is recommended. No hydronephrosis, hydroureter, or calculi seen. No perinephric stranding. BLADDER: Significant urinary bladder distention. GASTROINTESTINAL TRACT: The stomach and the small bowel are nondilated. Normal appendix. Colonic diverticulosis without significant pericolonic inflammatory changes. No evidence of bowel obstruction. Large of stool ball in the rectum. ABDOMINAL WALL: No significant hernia is appreciated. LYMPH NODES: A few slightly prominent right lower quadrant mesenteric lymph nodes measuring up to 6 mm in short axis, are unchanged. VASCULAR: Normal caliber abdominal aorta. PELVIC VISCERA: Unremarkable. OSSEOUS STRUCTURES: No acute or aggressive appearing osseous findings. CT/CT abdomen pelvis wo IV con IMPRESSION: 1. Significant urinary bladder distention, nonspecific. Correlate clinically for urinary retention. 2. Colonic diverticulosis but no evidence of acute diverticulitis. 3. Large stool ball in the rectum.
--- NOTE | 2023-06-12 07:05 | ED.CHESTPAIN ---
HPI - Chest Pain General Chief Complaint: Chest Pain Stated Complaint: chest pressure Time Seen by Provider: 06/12/23 07:04 Source: patient Mode of arrival: ambulatory Limitations: no limitations History of Present Illness HPI narrative: 37 year old male with PMH: HTN, HLD hemochromatosis and DVT presents to the emergency department complaining of chest pain. He states he is getting ready for bed chest pain and was brought in by EMS. Patient was last seen here last month for dizziness while shopping at [employer] and noticing his blood pressure was elevated he denies any falls injuries he denies lifting or reason for the pain. He states he has had longstanding left-sided lower abdominal pain as well as low back pain he states this morning he woke up with left upper quadrant pain which he describes as chest pain but it is swollen left upper quadrant there is no pain to his chest though it does hurt when I touch his chest wall. Related Data Previous Rx's ?Medication ?Instructions ?Recorded sucralfate 100 mg/mL oral 10 ml PO BEDTIME #400 mL 04/01/23 suspension cholecalciferol (vitamin D3) 50 50 mcg PO DAILY #30 caps 04/05/23 mcg (2,000 unit) capsule pantoprazole 40 mg tablet,delayed 40 mg PO DAILY #60 tabs 05/11/23 release Allergies Allergy/AdvReac Type Severity Reaction Status Date / Time tadalafil [From Cialis] Allergy Severe Unknown Verified 06/12/23 04:18 [id number] Reductase Allergy Palpitation Verified 06/12/23 04:18 Inhibitor s rosuvastatin AdvReac Mild Unknown Verified 06/12/23 04:18 metronidazole [From Flagyl] AdvReac Unknown Nausea, Verified 06/12/23 04:18 sweats, Diarrhea Review of Systems Review of Systems: Review of systems: General: Patient denies any fever chills recent illness or falls Musculoskeletal: Denies back pain or body aches or other injuries HEENT: denies headache, runny nose, ear pain Respiratory: denies shortness of breath, cough Cardiovascular: no chest pain or palpitations : denies dysuria, frequency Abdomen: no nausea vomiting denies abdominal pain Extremities: no swelling, no pain Skin: no diaphoresis Yes all other systems are reviewed and are negative PMFSH Past Medical History Medical History Thrombosed external hemorrhoid Autosomal dominant hereditary hemochromatosis Mild intermittent allergic 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 Mood disorder Dizziness Paresthesia Thyroid nodule Anxiety HTN (hypertension) Surgical History Hx of colonoscopy S/P fine needle aspiration Hx of wisdom tooth extraction Family History Family History Father CLL (chronic lymphocytic leukemia) Diabetes Paternal Grandfather Diabetes Maternal Grandmother H/O heart bypass surgery Mother Drug abuse Social History Social History Household Members: None Housing: Apartment Are you a primary insurance healthcare consultant to a significant other at home: No Do you presently have visiting nurse or other home services: No Alcohol intake: never Patient Tobacco Use Status: Never used Tobacco Smoked in Last 30 Days: No Use of substances other than those prescribed or required for medical reasons: No Advance Directives: No Advance Directives Information Provided: No service: No Current occupational status: unemployed Physical Exam Vital Signs: Vital Signs: Last Vital Signs Temp 98.5 F 06/12/23 12:15 Pulse 64 06/12/23 12:15 Resp 11 L 06/12/23 12:15 BP 115/84 06/12/23 12:15 Pulse Ox 97 06/12/23 12:15 O2 Del Method Room Air 06/12/23 12:15 BMI result Body Mass Index 24.3 General: Well-appearing well-nourished in no signs of distress HEENT: Normocephalic atraumatic Neck: No signs of JVD, no masses no tenderness or lymphadenopathy Cardiovascular: Regular rate and rhythm pain is reproducible to the chest wall Respiratory: Clear to auscultation bilaterally Abdomen: Soft nontender no masses Extremities: Normal pedal pulses no signs of edema Skin: Dry warm no rashes Back: No tenderness full ROM Course Course Course Narrative: 817 I was called to the patient's bedside patient states he does not want to get a CT scan he wants this ruled out without having CT scan as having an ultrasound I did explain to the patient the limits with technology and the anatomy and where the pain is. That we need a CT scan he was reticent to do that he wanted exact analysis based on how many CT scans he has had in the past and x-rays to know what is increased risk of cancer in the future could be I did attempted to explain to him that I do not have a calculator I do not know all the imaging that he has had done in the past several years or a way to quantify unify did have those numbers and that I do recommend getting a CT scan at this time but understand the risk of radiation is real and he wants to think about whether he wants to get the CT scan at this time. Reevaluation(s) Reevaluation #1: Patient is agreeable to getting the CT scan today were having an issue here at [place] where our chemistry analyzer is down it has been taking over 4 hours to get any chemistry results as we wait for creatinine to get CTs with IV contrast I think the benefit of getting a CT scan in real-time outweighs the risk of waiting 4 plus hours for creatinine. I did discuss this with the patient and he is agreeable with the plan. Reevaluation #2: CT scan and labs resulted around the same time lipase is elevated I will give patient has more fluid pain is in that area cc unremarkable as described above were unable to get IV contrast do think the patient benefit from admission continue pain control and fluids. I discussed the case with who agreed with the admission. Medications Administered Discontinued Medications Generic Name Dose Route Start Last Admin Trade Name Freq PRN Reason Stop Dose Admin Sodium Chloride 1,000 mls @ 999 mls/hr 06/12/23 07:45 06/12/23 10:51 Ns IV 06/12/23 08:45 Infused .Q1H1M YOLANDE Infusion Medical Decision Making Medical Decision Making [facility] Narrative: Complete cardiac workup on the patient troponins and labs and a chest x-ray Differential Diagnosis Differential Diagnoses: The differential diagnosis associated with the presentation includes ACS, chest pain, chest wall pain abdominal pain acute surgical abdomen chronic back pain diverticulitis or other surgical family of the abdomen Lab Data [facility] Lab Attestation statement: I reviewed the patient's lab results. 06/12/23 07:25 06/12/23 07:25 Labs: Lab Results 06/12/23 Range/Units 07:25 WBC 7.3 (4.8-10.8) X10*3/uL RBC 5.66 (4.60-5.80) X10*6/uL Hgb 18.3 H (14.0-18.0) g/dl Hct 51.0 (42.0-52.0) % MCV 90.1 (80.0-98.0) fL MCH 32.3 (27.0-33.0) pg MCHC 35.9 (31.0-36.0) g/dl RDW 11.5 (11.0-16.0) % Plt Count 245 (160-400) X10*3/uL MPV 9.8 (9.4-12.4) fL Absolute Nucleated RBC 0.000 (0.0-0.012) X10*3/uL Nucleated RBC % (auto) 0.0 (0.0-0.2) /100WBC PT 12.4 (11.1-13.3) SEC INR 1.0 (0.9-1.1) Sodium 142 (135-145) mmol/L Potassium 4.2 (3.3-5.1) mmol/L Chloride 103 (96-108) mmol/L Carbon Dioxide 25 (22-29) mmol/L Anion Gap 14 (12-20) BUN 11 (9-16) mg/dL Creatinine 1.00 (0.5-1.4) mg/dL Estim Creat Clear Calc 107.7 Estimated GFR > 60 Random Glucose 102 (60-115) mg/dL Calcium 10.5 H D (8.4-10.2) mg/dL Total Bilirubin 0.5 (0.0-1.0) mg/dL AST 17 D (5-37) U/L ALT 19 (0-40) U/L Alkaline Phosphatase 102 (39-117) U/L Troponin I High Sens < 0.5 D (<3.5-35.0) ng/L Total Protein 7.9 (6.5-8.0) g/dL Albumin 4.7 (3.5-5.0) g/dL Lipase 279 H (8-78) U/L Independent Interpretation I performed an independent interpretation of an: EKG and Plain X-Ray Radiology Impression Discussion of test interpretation with radiology: I have reviewed the radiologist's reading. External Record Review External record reviewed: Inpatient record and Office record Chronic Conditions Patient?s care impacted by: Hypertension Scores Heart Score History: -0- slightly suspicious ECG: -0- normal Age: -0- < or = 45 Risk factory: -1- 1 or 2 risk factors Troponin: -0- < or = normal limit Score: 1 Risk: 1.7% Discharge Plan Discharge Clinical Impression: Hemochromatosis, Abdominal pain, Acute pancreatitis Patient Disposition: Admitted As Inpatient Prescriptions: No Action sucralfate 100 mg/mL suspension 10 ml PO BEDTIME Qty: 400 3RF cholecalciferol (vitamin D3) 50 mcg (2,000 unit) capsule 50 mcg PO DAILY Qty: 30 3RF pantoprazole 40 mg tablet,delayed release (DR/EC) 40 mg PO DAILY Qty: 60 2RF Print Language: Algerian
[2023-06-12 07:38] LABS: Hemoglobin 18.3 g/dl (14.0-18.0); Mean Corpuscular HGB Conc 35.9 g/dl (31.0-36.0); Mean Corpuscular Hemoglobin 32.3 pg (27.0-33.0); Mean Corpuscular Volume 90.1 fL (80.0-98.0); Mean Platelet Volume 9.8 fL (9.4-12.4); Platelet Count 245 X10*3/uL (160-400); Red Blood Count 5.66 X10*6/uL (4.60-5.80); Red Cell Distribution Width 11.5 % (11.0-16.0); White Blood Count 7.3 X10*3/uL (4.8-10.8)
[2023-06-12 07:43] LABS: Prothrombin Time 12.4 SEC (11.1-13.3)
[2023-06-12 09:10] LABS: Troponin-I High Sensitivity < 0.5 ng/L (<3.5-35.0)
[2023-06-12] MEDS: 0.9 % Sodium Chloride 1,000 ML 999 ML IV ×2 (09:25→13:13)
[2023-06-12 09:59] LABS: Anion Gap 14 (12-20); Blood Urea Nitrogen 11 mg/dL (9-16); Calcium 10.5 mg/dL (8.4-10.2); Carbon Dioxide 25 mmol/L (22-29); Chloride 103 mmol/L (96-108); Creatinine Clr Calc Pharmacy 107.7; Estimated Glomerular Filt Rate > 60; Glucose Random 102 mg/dL (60-115); Potassium 4.2 mmol/L (3.3-5.1)
[2023-06-12 10:00] LABS: Alanine Aminotransferase 19 U/L (0-40); Albumin Level 4.7 g/dL (3.5-5.0); Alkaline Phosphatase 102 U/L (39-117); Aspartate Amino Transferase 17 U/L (5-37); Bilirubin Total 0.5 mg/dL (0.0-1.0); Sodium 142 mmol/L (135-145); Total Protein 7.9 g/dL (6.5-8.0)
[2023-06-12 10:55] LABS: Lipase 279 U/L (8-78)
[2023-06-12 13:09] LABS: Triglycerides 70 mg/dL (<150)
--- NOTE | 2023-06-12 13:54 | PHA.MEDREC ---
Pharmacy Consult ? Medication Reconciliation Pharmacy has completed the medication reconciliation.
--- NOTE | 2023-06-12 14:05 | P.HPHOSP_ITS ---
History of Present Illness Date of Service: 06/12/23 Attending physician on admission: Moises iLu Chief Complaint: Chest pain, elevated blood pressure Pt is a 37-year-old male with a PMH significant for?hemochromatosis, polycythemia vera, Alport syndrome autosomal dominant, and GERD who presents to the ED for evaluation of elevated blood pressure and left-sided chest pain since this morning. Pt reports symptoms began this morning when he noticed sharp, stabbing left-sided chest pain which radiated to throat and down left side. Pain comes and goes and usually lasts 2-3 seconds long at a time. Pt also notes took his blood pressure and was significantly elevated to the 170s/90s. Pt reports intermittently elevated BP in the past but usually normontensive and not on anytihypertensives. States has had similar chest pain in the past with significant negative cardiac workup in the past, including Holter monitor and multiple echocardiograms. Family hx of grandmother with MD at age 58. Denies hx of smoking, alcohol or illicit drug use. Pt denies any recent hx of falls or trauma to chest wall. No recent respiratory illnesses or coughing. Pt also reports chronic intermittent nausea without vomiting and chronic constipation. Denies abdominal pain. No fever, chills. In the ED pt was initially hypertensive at 150/95, otherwise normotensive and other vitals WNL. Labs were significant for H&H of 18.3/51.0 and lipase 279, otherwise grossly unremarkable. No leukocytosis. No electrolyte abnormalities. Initial troponin negative. Hepatic and renal function WNL. CT?of abdomen and pelvis found nonspecific significant urinary bladder distention and large stool ball in the rectum. EKG demonstrated sinus bradycardia of [address] changes in anterior leads. Pt was treated with IVF. Pt will be admitted to the hospital under observation for treatment and further evaluation of atypical chest pain. Review of Systems 2 Review of Systems: Sharp, stabbing left-sided chest pain Elevated BP Chronic nausea, no vomiting Chronic constipation No abdominal pain Denies fever, chills No SOB PMFSH Medical History (Updated 06/13/23 @ 10:55 by Willie Marin MD) 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 Thrombosed external hemorrhoid Autosomal dominant hereditary hemochromatosis Mild intermittent allergic 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 Mood disorder Dizziness Paresthesia Thyroid nodule Anxiety HTN (hypertension) Family History Father CLL (chronic lymphocytic leukemia) Diabetes Paternal Grandfather Diabetes Maternal Grandmother H/O heart bypass surgery Mother Drug abuse Surgical History Hx of colonoscopy S/P fine needle aspiration Hx of wisdom tooth extraction Social History Household Members: None Housing: Apartment Are you a primary nurse wound care to a significant other at home: No Do you presently have visiting nurse or other home services: No Alcohol intake: never Patient Tobacco Use Status: Never used Tobacco Smoked in Last 30 Days: No Use of substances other than those prescribed or required for medical reasons: No Advance Directives: No Advance Directives Information Provided: No Nutrition Risks: No Nutritional Risk service: No Current occupational status: unemployed Meds Allergies Allergy/AdvReac Type Severity Reaction Status Date / Time tadalafil [From Cialis] Allergy Severe Unknown Verified 06/12/23 04:18 [id number] Reductase Allergy Palpitation Verified 06/12/23 04:18 Inhibitor s rosuvastatin AdvReac Mild Unknown Verified 06/12/23 04:18 metronidazole [From Flagyl] AdvReac Unknown Nausea, Verified 06/12/23 04:18 sweats, Diarrhea Home Medications ?Medication ?Instructions ?Recorded ?Confirmed ?Last Taken ?Type cholecalciferol (vitamin D3) 50 10,000 unit PO GARCIA@2100 06/12/23 06/12/23 Unknown History mcg (2,000 unit) capsule pantoprazole 40 mg tablet,delayed 40 mg PO DAILY@0630 PRN Heartburn 06/12/23 06/12/23 06/08/23 History release triamcinolone acetonide 0.025 % 1 appl topical BID PRN Rash 06/12/23 06/12/23 Unknown History topical cream Physical Exam 2 Vital Signs and Narrative: Vital Signs: Last Vital Signs Temp 98.5 F 06/12/23 12:15 Pulse 64 06/12/23 12:15 Resp 11 L 06/12/23 12:15 BP 115/84 06/12/23 12:15 Pulse Ox 97 06/12/23 12:15 O2 Del Method Room Air 06/12/23 12:15 BMI result Body Mass Index 24.3 General: AOx3, no acute distress Resp: CTA bilaterally CVS: S1, S2, RRR Chest wall: left anterior chest wall tender to palpation GI: +BS, no distention, mild epigastric tenderness Skin: Warm, dry Neuro: Cranial nerves II-XII grossly intact bilaterally. Motor grossly intact bilaterally Extremities: No edema Psych: Appropriate affect Results Labs 06/12/23 07:25 06/12/23 07:25 Labs: Laboratory Results - last 24 hr 06/12/23 07:25 MCV 90.1 MCH 32.3 MCHC 35.9 RDW 11.5 Plt Count 245 MPV 9.8 Absolute Nucleated RBC 0.000 Nucleated RBC % (auto) 0.0 PT 12.4 INR 1.0 Anion Gap 14 Estim Creat Clear Calc 107.7 Estimated GFR > 60 Random Glucose 102 Calcium 10.5 H D Total Bilirubin 0.5 AST 17 D ALT 19 Alkaline Phosphatase 102 Troponin I High Sens < 0.5 D Total Protein 7.9 Albumin 4.7 Triglycerides 70 Lipase 279 H Imaging Radiologist's Impressions: Impressions Chest X-Ray 06/12/23 07:41 IMPRESSION: Unremarkable examination. Abdomen/Pelvis CT 06/12/23 10:28 IMPRESSION: 1. Significant urinary bladder distention, nonspecific. Correlate clinically for urinary retention. 2. Colonic diverticulosis but no evidence of acute diverticulitis. 3. Large stool ball in the rectum. Assessment and Plan (1) Atypical chest pain: Status: Inactive Plan Pt is a 37-year-old male with a PMH significant for?hemochromatosis, polycythemia vera, Alport syndrome autosomal dominant, and GERD who presents to the ED for evaluation of elevated blood pressure and left-sided chest pain since this morning. Pt will be admitted to the hospital under observation for treatment and further evaluation of atypical chest pain and paroxysmal hypertension. Atypical chest pain Pt with sharp, stabbing intermittent left-sided chest pain lasting 2-3 seconds at a time; left anterior chest wall tender to palpation Unclear etiology: EKG with possible subtle ST changes in anterior leads, hx of hemochromatosis Pt has had negative workup in the past for similar symptoms, including Holter monitor, multiple echos Will treat with aspirin Initial troponin negative, will check repeat Cardiology consult Monitor on telemetry Elevated blood pressure Patient reports blood pressure at home elevated at 170s/90s Initially hypertensive at 150/95 though otherwise normotensive No treatment indicated at this time Monitor BP Elevated lipase Unclear etiology Pt with chronic nausea but no vomiting, no appreciable abd pain, CT negative, pt tolerating p.o. Will check amylase No further workup indicated at this time Chronic constipation Will treat with Miralax Miralax, Colace prn Polycythemia vera H&H 18.3/51.0 No indication for emergent phlebotomy at this time Full Code Attending:?Dr. Liu DVT Prophylaxis: Pt ambulatory Patient will be admitted to the hospital under observation for treatment and further evaluation of atypical chest pain. Patient will be on telemetry for close monitoring of cardiac function and specialist consultation with Cardiology tomorrow. Quality Stroke Does the patient have a stroke diagnosis?: No VTE Prior VTE?: No VTE Risk Level:: Medical - moderate - high VTE Device Contraindication: Treatment Not Indicated VTE Drug Contraindication: Treatment Not Indicated
[2023-06-12] MEDS: polyethylene glycoL 3350 17 GM POWD.PACK PO (14:46)
[2023-06-12] MEDS: Aspirin 81 MG TAB.CHEW 324 MG PO (14:47)
[2023-06-12 16:26] LABS: Troponin-I High Sensitivity < 2.7 ng/L (<3.5-35.0)
[2023-06-12 17:13] LABS: Amylase 160 U/L (28-100)
[2023-06-12] MEDS: Docusate Sodium 100 MG CAPSULE PO (18:21)
--- NOTE | 2023-06-12 20:24 | PC.NURSE ---
assumed care of pt. pt resting in stretcher, no acute distress noted. normal sinus on tele 89-91bpm.
--- NOTE | 2023-06-12 23:18 | PC.NURSE ---
per pt request, pt given ear plugs and towel to cover eyes, pt comfortable, no acute distress noted.
--- NOTE | 2023-06-12 23:24 | MHC.EDTECH ---
This pct assumed care of patient at 2300 ,vitals taken ,pt watching television ,call avery within Pt reach .
[2023-06-13] MEDS: 0.9 % Sodium Chloride Flush 3 ML SYRINGE IVFLUSH (00:04)
[2023-06-13 02:16] VITALS: BP 133/99; PULSE 67; RESP 15; TEMP 36.5; O2SAT 98
[2023-06-13] MEDS: Sodium Phosphate,Mono-Dibasic 133 ML ENEMA PR (05:14)
[2023-06-13 06:41] VITALS: BP 119/87; PULSE 62; RESP 15; TEMP 36.9; O2SAT 97
--- NOTE | 2023-06-13 07:25 | PC.NURSE ---
patient resting quietly in ED room 10, refused AM lactulose and vitals
--- NOTE | 2023-06-13 07:42 | PC.NURSE ---
patient rang call light requested medication for GERD, utilized prn order for acid reflux of prilosec, presented medication to patient, patient refused medication stating he does not wnt any PPI's. medication returned to [facility].
--- NOTE | 2023-06-13 08:58 | PC.NURSE ---
patient tech informed this RN that patient has successful bowel movement.
[2023-06-13 10:10] LABS: Lipase 166 U/L (8-78)
--- NOTE | 2023-06-13 10:52 | P.CONCA_ITS ---
History of Present Illness History of Present Illness Date of Service: 06/13/23 Chief complaint: chest pain, ?abnormal ECG Narrative: 37-year-old gentleman with complex medical issues including hemochromatosis, Alport syndrome, hypertension and hyperlipidemia who is presenting for left- sided throbbing chest and abdominal discomfort. He also has epigastric pain. His lipase is elevated and it appears he is being treated for pancreatitis. He had EKG performed which was read by machine as anterior ST elevations. The EKG has significant artifact and there is no ST elevations present and in fact the EKGs normal. I have explained that to the patient and reassured him. He is getting epigastric discomfort. He also has palpitations and at times gets significantly elevated blood pressures. He is saying that his blood pressures are quite fluctuant and he also gets low blood pressures. He previously was given clonidine but apparently had withdrawal from it. He follows in [place] with Nephrology. He has hemochromatosis and follows with Dr. Andrews. [facility] Past Medical History Medical History (Updated 06/13/23 @ 10:55 by Willie Marin MD) 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 Thrombosed external hemorrhoid Autosomal dominant hereditary hemochromatosis Mild intermittent allergic 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 Mood disorder Dizziness Paresthesia Thyroid nodule Anxiety HTN (hypertension) Family History Family History Father CLL (chronic lymphocytic leukemia) Diabetes Paternal Grandfather Diabetes Maternal Grandmother H/O heart bypass surgery Mother Drug abuse Surgical History Surgical History Hx of colonoscopy S/P fine needle aspiration Hx of wisdom tooth extraction Social History Social History Household Members: None Housing: Apartment Are you a primary child care provider to a significant other at home: No Do you presently have visiting nurse or other home services: No Alcohol intake: never Patient Tobacco Use Status: Never used Tobacco Smoked in Last 30 Days: No Use of substances other than those prescribed or required for medical reasons: No Advance Directives: No Advance Directives Information Provided: No Nutrition Risks: No Nutritional Risk service: No Current occupational status: unemployed Meds Allergies Allergy/AdvReac Type Severity Reaction Status Date / Time tadalafil [From Cialis] Allergy Severe Unknown Verified 06/12/23 04:18 [id number] Reductase Allergy Palpitation Verified 06/12/23 04:18 Inhibitor s rosuvastatin AdvReac Mild Unknown Verified 06/12/23 04:18 metronidazole [From Flagyl] AdvReac Unknown Nausea, Verified 06/12/23 04:18 sweats, Diarrhea Active Medications: Current Medications Acetaminophen (Acetaminophen 325 Mg Tablet) 650 mg PO Q6H PRN PRN Reason: Pain, Mild (Pain Scale 1-3) Benzonatate (Benzonatate 100 Mg Capsule) 100 mg PO TID PRN PRN Reason: Cough Docusate Sodium (Docusate Sodium 100 Mg Capsule) 100 mg PO DAILY PRN PRN Reason: Constipation Last Admin: 06/12/23 18:21 Dose: 100 mg Lactulose (Lactulose 20 Gm/30 Ml Solution) 30 gm PO TID [facility] Last Admin: 06/13/23 07:25 Dose: Not Given Magnesium Hydroxide (Milk Of Magnesia 30 Ml Oral.Susp) 30 ml PO TID PRN PRN Reason: Constipation Melatonin (Melatonin 3 Mg Tablet) 6 mg PO BEDTIME PRN PRN Reason: Insomnia Omeprazole (Omeprazole 20 Mg Capsule.Dr) 20 mg PO DAILY@0630 PRN PRN Reason: Heartburn Ondansetron HCl (Ondansetron Hcl 4 Mg/2 Ml Vial) 4 mg IVPUSH Q8H PRN PRN Reason: Nausea and Vomiting Polyethylene Glycol (Polyethylene Glycol 3350 17 Gm Powd.Pack) 17 gm PO DAILY PRN PRN Reason: Constipation Sodium Biphosphate/Sodium Phosphate (Sodium Phosphate,Dickinson-Dibasic 133 Ml Enema) 133 ml FL ONCE PRN PRN Reason: Constipation Last Admin: 06/13/23 05:14 Dose: 133 ml Sodium Chloride (0.9 % Sodium Chloride Flush 3 Ml Syringe) [facility] Last Admin: 06/13/23 07:24 Dose: Not Given Home Medications ?Medication ?Instructions ?Recorded ?Confirmed ?Last Taken ?Type cholecalciferol (vitamin D3) 50 10,000 unit PO GARCIA@2100 06/12/23 06/12/23 Unknown History mcg (2,000 unit) capsule pantoprazole 40 mg tablet,delayed 40 mg PO DAILY@0630 PRN Heartburn 06/12/23 06/12/23 06/08/23 History release triamcinolone acetonide 0.025 % 1 appl topical BID PRN Rash 06/12/23 06/12/23 Unknown History topical cream Physical Exam 2 Vital Signs: Vital Signs: Last Vital Signs Temp 98.4 F 06/13/23 06:41 Pulse 62 06/13/23 06:41 Resp 15 06/13/23 06:41 BP 119/87 06/13/23 06:41 Pulse Ox 97 06/13/23 06:41 O2 Del Method Room Air 06/13/23 06:41 BMI result Body Mass Index 24.3 GENERAL APPEARANCE: in no acute distress, pleasant. Anxious appearing NECK: no carotid bruit, no jugular venous distention. SKIN: no suspicious lesions, warm and dry. HEART: no murmurs, regular rate and rhythm. LUNGS: clear to auscultation bilaterally. Left-sided chest wall tenderness at a focal point over ribs. ABDOMEN: soft, nontender. EXTREMITIES: no edema. PERIPHERAL PULSES: equal. NEUROLOGIC: No gross deficits, AAO X 3 Objective Labs and Meds 06/12/23 07:25 06/12/23 07:25 Lab results: Laboratory Results - last 24 hr 06/12/23 06/12/23 06/13/23 07:25 15:45 09:47 Troponin I High Sens < 2.7 D Triglycerides 70 Amylase 160 H Lipase 279 H 166 H Imaging Radiologist's impression: Impressions Abdomen/Pelvis CT 06/12/23 10:28 IMPRESSION: 1. Significant urinary bladder distention, nonspecific. Correlate clinically for urinary retention. 2. Colonic diverticulosis but no evidence of acute diverticulitis. 3. Large stool ball in the rectum. Assessment and Plan (1) Chest pain: Status: Acute Plan [age] year gentleman with chest pain. Chest pain is reproducible and noncardiac in origin. His EKG in fact is normal and there was some artifact which was read by the machine as anterior ST elevations. I have explained this to the patient and I have reassured him. He has significant medical issues previously and was seeking care for that previously with Hematology as well as Gastroenterology. If being admitted then can get an echocardiogram with his background of hemochromatosis. His current presentation of chest pain is not due to any cardiac issues and is in fact musculoskeletal in origin. This should be treated symptomatically. Thank you for allowing me to participate in the care of your patient. Please feel free to contact me if you have any questions. Procedures Date of Service Date of Service: 06/13/23
[2023-06-13 12:17] VITALS: BP 141/89; PULSE 70; RESP 12; TEMP 36.7; O2SAT 97
--- NOTE | 2023-06-13 13:00 | MHC.CM.PN ---
Met with patient in regards to discharge planning. Patient lives alone, ambulates independently and had no services prior to coming to the hospital. No services anticipated to be needed because patient is not homebound. PCP verified. Patient denies having a HCP. Information provided. Patient declining to complete one at this time. Obs notice explained and signed. Patient will take city bus home when medically stable. Continue to monitor for d/c needs.
--- NOTE | 2023-06-13 13:09 | P.DS_ITS ---
DS: Providers Provider Date of Service: 06/13/23 Date of admission: 06/12/23 14:10 Date of discharge: 06/13/23 Primary care physician: Asha Dodge MD Consults: 06/12/23 14:15 Consult to Cardiology Routine Consulting [place] [facility] [place] [facility] Reason for consultation: Atypical chest pain, EKG with slight ST elevations in anterior leads Attending physician on discharge: Moises Liu Discharging clinician: Moises Liu DS: Diagnosis Discharge Diagnosis (1) Chest pain: Status: Acute DS: Summary Hospital Course Hospital Course: 37-year-old male with a PMH significant for?hemochromatosis, polycythemia vera, Alport syndrome autosomal dominant, and GERD who presents to the ED for evaluation of elevated blood pressure and left-sided chest pain since this morning. Pt reports symptoms began this morning when he noticed sharp, stabbing left-sided chest pain which radiated to throat and down left side. Pain comes and goes and usually lasts 2-3 seconds long at a time. Pt also notes took his blood pressure and was significantly elevated to the 170s/90s. Pt reports intermittently elevated BP in the past but usually normontensive and not on anytihypertensives. States has had similar chest pain in the past with significant negative cardiac workup in the past, including Holter monitor and multiple echocardiograms. Family hx of grandmother with OK at age 58. Denies hx of smoking, alcohol or illicit drug use. Pt denies any recent hx of falls or trauma to chest wall. No recent respiratory illnesses or coughing. Pt also reports chronic intermittent nausea without vomiting and chronic constipation. Denies abdominal pain. No fever, chills. In the ED pt was initially hypertensive at 150/95, otherwise normotensive and other vitals WNL. Labs were significant for H&H of 18.3/51.0 and lipase 279, otherwise grossly unremarkable. No leukocytosis. No electrolyte abnormalities. Initial troponin negative. Hepatic and renal function WNL. CT?of abdomen and pelvis found nonspecific significant urinary bladder distention and large stool ball in the rectum. EKG demonstrated sinus bradycardia of [address] changes in anterior leads. Pt was treated with IVF. Pt will be admitted to the hospital under observation for treatment and further evaluation of atypical chest pain. Hospital course: Patient was admitted to the hospital because of atypical chest tightness, was found to have elevated lipase and some epigastric discomfort-otherwise patient is tolerating diet abdominal pain, lipase was improving, CT abdomen seems negative. constipation-started on luxatives ,passing bm's. going home with colace and miralex. Patient abdominal CT scan was showing some urinary bladder distention initially then patient had urinated and bladder scan as per ED physician came out to be negative. Patient is urinating fine. patient does not want use ppi,so switched to pepcid . Seen by cardiology chest pain seems atypical, troponin negative, EKG seems fine: Further workup consider echo out patiently with patient's own Individual Small Group Instructor. Above management discussed with the patient in detail length she understand and in agreement with the above plan, time spent 40 minutes and 50% time spent on counseling. Time Attestation Total time managing care of this patient today: 40 mintues. Discharge Coordination Time (in mins): 40 min Quality: Safe Use of Opioids Does Pt have an Active Cancer Diagnosis on the Problem List?: No Quality: Stroke Does the patient have a stroke diagnosis?: No Physical Exam Vital Signs: Vital Signs: Last Vital Signs Temp 98.0 F 06/13/23 12:17 Pulse 70 06/13/23 12:17 Resp 12 06/13/23 12:17 BP 141/89 H 06/13/23 12:17 Pulse Ox 97 06/13/23 12:17 O2 Del Method Room Air 06/13/23 12:17 BMI result Body Mass Index 24.3 Appearance: Alert.? Oriented X3.? cvs: rrr, [id number] , no murmur res: clear to auscultation ,no rhonchii or wheezing abd: no rebound or guarding ,nt, bs present. ext pulses present , no cyanosis. neuro: axo3 , nonfocal. DS: Data Data Completed and Pending Labs on day of discharge: Laboratory Results - last 24 hr 06/12/23 06/12/23 06/13/23 07:25 15:45 09:47 Troponin I High Sens < 2.7 D Triglycerides 70 Amylase 160 H Lipase 166 H Imaging Chest x-ray: Radiologist's impression: ITS Impressions Chest X-Ray 06/12/23 07:41 IMPRESSION: Unremarkable examination. Abdomen/Pelvis CT 06/12/23 10:28 IMPRESSION: 1. Significant urinary bladder distention, nonspecific. Correlate clinically for urinary retention. 2. Colonic diverticulosis but no evidence of acute diverticulitis. 3. Large stool ball in the rectum. Discharge Plan Discharge Anticipated Discharge Date/Time: 06/13/23 13:00 Patient Disposition: Home, Self-Care Discharge Diagnosis: atypical chest pain Referrals: Asha Dodge MD [Primary Care Provider] - 1 Week Discharge Medications: New docusate sodium 100 mg Capsule 100 mg PO DAILY PRN (Reason: Constipation) Qty: 30 0RF polyethylene glycol 3350 [Miralax] 17 gram/dose powder 17 g PO DAILY Qty: 119 0RF famotidine [Pepcid] 20 mg tablet 20 mg PO BEDTIME Qty: 30 0RF Continued triamcinolone acetonide 0.025 % cream 1 appl TOPICAL BID PRN (Reason: Rash) cholecalciferol (vitamin D3) 50 mcg (2,000 unit) capsule 10,000 unit PO GARCIA@2100 Held pantoprazole 40 mg tablet,delayed release (DR/EC) 40 mg PO DAILY@0630 PRN (Reason: Heartburn) Hold Instructions: Resume on 08/01/23. Discharge Orders: Discharge Order (Routine); Ordered 06/13/23 Ordered By: Moises Liu Diet: Advance to usual diet Activity on Discharge: As tolerated Stand Alone Forms: Patient Portal Discharge page Print Language: Argentine Care Plan Goals: Patient was admitted to the hospital because of atypical chest tightness, was found to have elevated lipase and some epigastric discomfort-otherwise patient is tolerating diet abdominal pain, lipase was improving, CT abdomen seems negative. constipation-started on luxatives ,passing bm's. going home with colace and miralex. Patient abdominal CT scan was showing some urinary bladder distention initially then patient had urinated and bladder scan as per ED physician came out to be negative. Patient is urinating fine. patient does not want use ppi,so switched to pepcid . Seen by cardiology chest pain seems atypical, troponin negative, EKG seems fine: Further workup consider echo out patiently with patient's own Individual Small Group Instructor. Health Concerns: As above. Plan of Treatment: As above. Assessment: As above.
== END 2023-06-13 13:57 | disposition home or self-care (01) ==
LOC: HO.ED 12:22 → HO.EDOVER 14:23
PROVIDERS: Admitting Provider Student in an Organized Health Care Education/Training Program; Emergency Provider Student in an Organized Health Care Education/Training Program; PCP General Practice; Referring Provider Student in an Organized Health Care Education/Training Program; Visit Provider Internal Medicine
DX: R07.9 Chest pain, unspecified (principal); R10.32 Left lower quadrant pain; I10 Essential (primary) hypertension; J45.20 Mild intermittent asthma, uncomplicated; R74.8 Abnormal levels of other serum enzymes; D45 Polycythemia vera; Q87.81 Alport syndrome; E83.119 Hemochromatosis, unspecified; R10.13 Epigastric pain; F39 Unspecified mood [affective] disorder
CPT/HCPCS: 36415; 71046; 74176; 80053; 82150; 83690; 84478; 84484; 85027; 85610; 93005; 96360; 96361; 99222; 99285

== ENCOUNTER → 2023-06-12 14:10 | Outpatient (BNV) | payer MEDICAID, SELFPAY | PROVIDERS: Admitting Provider Student in an Organized Health Care Education/Training Program; Emergency Provider Student in an Organized Health Care Education/Training Program; PCP General Practice; Visit Provider Internal Medicine Cardiovascular Disease | DX: R07.9 Chest pain, unspecified (principal); R00.1 Bradycardia, unspecified | CPT/HCPCS: 93010; 99222 ==

== ENCOUNTER → 2023-06-12 14:10 | Outpatient (BNV) | payer MEDICAID, SELFPAY | PROVIDERS: Admitting Provider Student in an Organized Health Care Education/Training Program; Emergency Provider Student in an Organized Health Care Education/Training Program; PCP General Practice; Visit Provider Internal Medicine | DX: R07.9 Chest pain, unspecified (principal) | CPT/HCPCS: 99222; 99239 ==

== ENCOUNTER 2023-06-13 14:48 | Outpatient (REF) | payer MEDICAID, SELFPAY ==
[2023-06-13 16:16] LABS: MANUAL DIFF FLAG NO
[2023-06-13 16:19] LABS: Basophils Percent Auto 0.4 % (0-2); Eosinophils Absolute Auto 0.1 X10*3/uL (0.0-0.4); Eosinophils Percent Auto 1.2 % (0-4); Hematocrit 50.8 % (42.0-52.0); Hemoglobin 18.3 g/dl (14.0-18.0); Imm Gran Abs Auto 0.01 X10*3/uL (0.00-0.03); Imm Gran Pct Auto 0.1 % (0.0-0.4); Lymphocytes Absolute Auto 1.7 X10*3/uL (1.2-4.9); Lymphocytes Percent Auto 22.6 % (20-40); Mean Corpuscular Volume 88.8 fL (80.0-98.0); Monocytes Absolute Auto 0.4 X10*3/uL (0.1-1.2); Monocytes Percent Auto 5.5 % (2-11); Neutrophils Absolute Auto 5.2 x10*3/uL (2.0-8.3); Neutrophils Percent Auto 70.2 % (45-73); Platelet Count 281 X10*3/uL (160-400); Red Blood Count 5.72 X10*6/uL (4.60-5.80); Red Cell Distribution Width 11.8 % (11.0-16.0); White Blood Count 7.4 X10*3/uL (4.8-10.8)
[2023-06-13 16:35] LABS: Iron 224 mcg/dL (45-160); Percent Iron Saturation 84 % (15-50); Total Iron Binding Capacity 267 mcg/dL (228-428); Unsaturated Iron Binding 43 ug/dL
[2023-06-13 16:49] LABS: Ferritin 324 ng/mL (20-250)
[2023-06-13 16:55] LABS: Cortisol Random 9.5 ug/dL
== END 2023-06-13 14:49 | disposition home or self-care (01) ==
LOC: HO.HHCL 14:48
PROVIDERS: Visit Provider General Practice
DX: R03.0 Elevated blood-pressure reading, without diagnosis of hypertension (principal); E83.119 Hemochromatosis, unspecified
CPT/HCPCS: 36415; 82533; 82728; 83540; 85025

== ENCOUNTER 2023-07-08 11:29 | Outpatient (AMB) | payer MEDICAID, SELFPAY ==
--- NOTE | 2023-07-08 11:34 | MHC.OFFVIS ---
Vital Signs 07/08/23 11:36 Height 5 ft 11 in Weight 176 lb 5.917 oz BMI 24.6 BP 127/88 Blood Pressure Location Lt brachial Position Sitting Pulse 72 Intake Visit Reasons: 2nd opinion per Tory Intake Note: Patient in office today for a second opinion and s/p EGD. CC: Patient c/o abdominal pain that feels light pulsating, tightness, and pressure. He states that when he eats anything sugary or fried he becomes dizzy and nauseous. He reports stool are thin and ropelike. Orthodontic Band Maker Required: No Allergies tadalafil [From Cialis] Allergy (Severe, Verified 07/08/23 11:39) Unknown Oshnrmq-LVY-HoD Reductase Inhibitor Allergy (Verified 07/08/23 11:39) Palpitations rosuvastatin Adverse Reaction (Mild, Verified 07/08/23 11:39) Unknown metronidazole [From Flagyl] Adverse Reaction (Unknown, Verified 07/08/23 11:39) Nausea, sweats, Diarrhea HPI HPI 2nd opinion per Tory: Details: 37 yr old m w/ of GERD< hemochromatosis, IBS here for f/u RECAP: EGD with esophagitis and erosive gastritis labs with mild lipase elevation and amylase --nml LFT, HGB 18 g/dl Interim: Here to review results of imaging had MRI scanned 06/28 with moderate iron overload and normal pancreas he is following up with hematology for the iron levels, and maybe getting kidney cyst drained he has not been taking PPI due to worries about rebound acidity when not taking he avoids red meat and pork, low iron diet he is only taking famotidine 20 mg OD prn he is noting thin stools and diarrhea he was having constipation before this he had colonoscopy 2020 for abn bowel habit and was normal EXAM: GENERAL: The patient is well developed and nontoxic. VITAL SIGNS:see workflow HEENT: Nonicteric sclerae, PERRLA, EOMI. Oropharynx clear. Moist mucous membranes. Conjunctivae appear well perfused. No thyroid mass. CHEST: Chest wall is nontender. HEART: Regular rate and rhythm without murmurs. LUNGS: Clear to auscultation bilaterally. ABDOMEN: Soft, positive bowel sounds, nontender, no organomegaly.no flank tenderness SKIN: veronica dermatitis with scaly skin. NEUROLOGIC: Cranial nerves II-XII intact without motor/sensory deficit. Psych: normal affect A/P: 1/ Polycythemia, 2/ veronica dermatitis--r/o vit defcn 3/ abn bowel habits 4/ elevated lipase, amylase could be from erosive gastritis or from polycythemia PLAN: 1/ recommended to take aspirin daily, can consider trental as well--vasodilating effects 2/ nutritional screen 3/ carafate as unable to take PPI PFSH Medical History (Updated 07/08/23 @ 12:02 by Marco Spears MD) 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 Thrombosed external hemorrhoid Autosomal dominant hereditary hemochromatosis Mild intermittent allergic 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 Mood disorder Dizziness Paresthesia Thyroid nodule Anxiety HTN (hypertension) Surgical History Hx of colonoscopy S/P fine needle aspiration Hx of wisdom tooth extraction Family History Father CLL (chronic lymphocytic leukemia) Diabetes Paternal Grandfather Diabetes Maternal Grandmother H/O heart bypass surgery Mother Drug abuse Social History Household Members: None Housing: Apartment Are you a primary certified social workers in health care to a significant other at home: No Do you presently have visiting nurse or other home services: No Alcohol intake: never Patient Tobacco Use Status: Never used Tobacco service: No Current occupational status: unemployed Physical Exam Vital Signs: BMI result Body Mass Index 24.6 Assessment & Plan Assessment & Plan (1) Malnutrition: Code(s): E46 - Unspecified protein-calorie malnutrition Category: Medical Plan: see above Orders: Orders Vitamin B1 Today E46 - Unspecified protein-calorie malnutrition Vitamin B12 and Folate Today E46 - Unspecified protein-calorie malnutrition Vitamin C Today E46 - Unspecified protein-calorie malnutrition Vitamin K1 Today E46 - Unspecified protein-calorie malnutrition Zinc Today E46 - Unspecified protein-calorie malnutrition Transglutaminase IgA Today E46 - Unspecified protein-calorie malnutrition Vitamin A Today E46 - Unspecified protein-calorie malnutrition Vitamin B3 (Niacin) Today E46 - Unspecified protein-calorie malnutrition Vitamin B5 (Pantothenic Acid) Today E46 - Unspecified protein-calorie malnutrition Vitamin B6 Today E46 - Unspecified protein-calorie malnutrition Vitamin D 25-OH Total Today E46 - Unspecified protein-calorie malnutrition Vitamin E Today E46 - Unspecified protein-calorie malnutrition Medications: New sucralfate (Carafate) 10 mL PO BID 1,000 mL 2RF Coding Level of Care Code Est Pt Level 3 (73722) Diagnoses Malnutrition E46
[2023-07-08 11:36] VITALS: BP 127/88; PULSE 72; BMI 24.6
== END 2023-07-08 12:04 | disposition home or self-care (01) ==
PROVIDERS: PCP General Practice; Referring Provider General Practice; Visit Provider Internal Medicine Gastroenterology
DX: E46 Unspecified protein-calorie malnutrition (principal)
CPT/HCPCS: 99213

== ENCOUNTER → 2023-07-08 11:29 | Outpatient (BNVA) | payer MEDICAID, SELFPAY | PROVIDERS: PCP General Practice; Visit Provider Internal Medicine Gastroenterology ==

== ENCOUNTER 2023-07-08 14:03 | Outpatient (REF) | payer MEDICAID, SELFPAY ==
[2023-07-08 17:39] LABS: CT PCR NOT DETECTED (Not Detect.); NG PCR NOT DETECTED (Not Detect.)
== END 2023-07-08 14:04 | disposition home or self-care (01) ==
LOC: HO.HHCL 14:03
PROVIDERS: General Practice; Visit Provider Internal Medicine
DX: Z11.3 Encounter for screening for infections with a predominantly sexual mode of transmission (principal); E46 Unspecified protein-calorie malnutrition
CPT/HCPCS: 0353U; 99212

== ENCOUNTER 2023-07-08 16:32 | Outpatient (REF) | payer MEDICAID, SELFPAY ==
[2023-07-09 12:03] LABS: C. trachomatis RNA TMA NOT DETECTED (NOT DETECTED); N. gonorrhoeae RNA TMA NOT DETECTED (NOT DETECTED)
== END 2023-07-08 16:33 | disposition home or self-care (01) ==
LOC: HO.HHCLNP 16:32
PROVIDERS: Visit Provider General Practice
DX: Z11.3 Encounter for screening for infections with a predominantly sexual mode of transmission (principal)
CPT/HCPCS: 36415; 87491; 87591

== ENCOUNTER 2023-07-11 13:00 | Outpatient (REF) | payer MEDICAID, SELFPAY ==
[2023-07-11 15:14] LABS: Vitamin D 25-OH Total 40.6 ng/mL (>30)
[2023-07-11 16:46] LABS: Folate 5.8 ng/mL (> or = 4.0); Vitamin B12 658 pg/mL (200-900)
[2023-07-12 11:53] LABS: Follicle Stimulating Hormone 5.5 mIU/mL (1.4-12.8); Lutenizing Hormone 4.5 mIU/mL (1.5-9.3)
[2023-07-13 14:33] LABS: Transglutaminase IgA <1.0 U/mL
[2023-07-15 01:14] LABS: Zinc 72 mcg/dL (60-130)
[2023-07-15 16:28] LABS: Vitamin C 0.4 mg/dL (0.2-2.1)
[2023-07-15 17:48] LABS: Testosterone, Total 442 ng/dL (250-1100)
[2023-07-15 18:29] LABS: Alpha-Tocopherol 10.2 mg/L (5.7-19.9); Beta-Gamma Tocopherol <1.0 mg/L (<=4.3)
[2023-07-15 19:28] LABS: Vitamin A 46 mcg/dL (38-98)
[2023-07-16 09:23] LABS: Vitamin B1 10 nmol/L (8-30)
[2023-07-16 16:58] LABS: Vitamin B6 11.3 ng/mL (2.1-21.7)
[2023-07-16 17:38] LABS: Vitamin B5 (Pantothenic Acid) 57 ng/mL (<275)
[2023-07-18 01:38] LABS: Nicotinamide 32 ng/mL; Vit B3 - Nicotinic Acid <20 ng/mL
== END 2023-07-11 13:01 | disposition home or self-care (01) ==
LOC: HO.LAB 13:00
PROVIDERS: Urology; PCP General Practice; Visit Provider Internal Medicine Gastroenterology
DX: E46 Unspecified protein-calorie malnutrition (principal); N52.9 Male erectile dysfunction, unspecified; E83.119 Hemochromatosis, unspecified
CPT/HCPCS: 36415; 82180; 82306; 82607; 82746; 83001; 83002; 84207; 84402; 84403; 84425; 84446; 84590; 84591; 84597; 84630; 86364

== ENCOUNTER 2023-07-20 15:52 | Outpatient (REF) | payer MEDICAID, SELFPAY ==
[2023-07-20 17:29] LABS: Appearance Urine Clear; Color Urine Yellow; Glucose Urine UA Negative (Negative); Leukocyte Esterase Urine Negative (Negative); Nitrite Urine Negative (Negative); PH 7.5 (5.0-9.0); Specific Gravity - Urine <= 1.005 (1.005-1.025); Urine Blood Negative (Negative); Urine Ketones Negative (Negative); Urine Protein Negative (Neg-Trace)
[2023-07-20 17:34] LABS: Bacteria Urine None Seen (None Seen); Hyaline Casts Urine 0-2 /LPF (0-2); RBC Urine 0-2 /HPF (0-2); Squamous Epithelial Cell Urine 0-2 /HPF (0-2); WBC Urine 0-5 /HPF (0-5)
[2023-07-20 17:58] LABS: Lipase 170 U/L (8-78)
[2023-07-21 07:56] LABS: HIV AB/AG Nonreactive (Nonreactive); HIV Num 1 0.05 S/CO (0.00-0.99); ~HepC Num1 0.19 S/CO (0.00-0.79); ~Hepatitis C Antibody Nonreactive (Nonreactive)
[2023-07-21 15:03] LABS: RPR Rapid Plasma Reagin NON-REACTIVE (NON-REACTIVE)
[2023-07-21 17:28] LABS: Ceruloplasmin 18 mg/dL (14-30)
== END 2023-07-20 15:53 | disposition home or self-care (01) ==
LOC: HO.HHCL 15:52
PROVIDERS: Visit Provider General Practice
DX: E83.110 Hereditary hemochromatosis (principal)
CPT/HCPCS: 36415; 81001; 82390; 83690; 86592; 86803; 87389

== ENCOUNTER 2023-09-20 15:46 | Outpatient (REF) | payer MEDICAID, SELFPAY ==
[2023-09-20 17:45] LABS: Iron 271 mcg/dL (45-160); Percent Iron Saturation 92 % (15-50); Total Iron Binding Capacity 296 mcg/dL (228-428); Unsaturated Iron Binding < 25 ug/dL
== END 2023-09-20 15:47 | disposition home or self-care (01) ==
LOC: HO.HHCL 15:46
PROVIDERS: Visit Provider General Practice
DX: E83.110 Hereditary hemochromatosis (principal)
CPT/HCPCS: 36415; 83540

== ENCOUNTER 2023-12-02 14:40 | Outpatient (REF) | payer MEDICAID, SELFPAY ==
--- NOTE | ~2023-12-02 | XR_ITS ---
EXAMINATION: XR FOOT, LEFT CLINICAL INFORMATION: Left foot pain and first MTP bruising. COMPARISON: None available. TECHNIQUE: AP, lateral, and oblique views of the left foot. FINDINGS: Minimal degenerative changes in the first metatarsophalangeal joint. Focal bony exostosis along the medial aspect of the distal tuft of the great toe. XR/XR foot LT min 3V IMPRESSION: 1. Minimal degenerative changes first metatarsophalangeal joint. 2. Focal bony exostosis along the medial aspect of the distal tuft of the great toe. Electronically signed by: Maxine Kaufman MD 12/27/2023 07:18 AM EDT
== END 2023-12-02 14:41 | disposition home or self-care (01) ==
LOC: HO.HMGCX 14:40
PROVIDERS: PCP General Practice; Visit Provider General Practice
DX: M79.672 Pain in left foot (principal)
CPT/HCPCS: 73630

== ENCOUNTER 2023-12-12 12:36 | Outpatient (AMB) | payer MEDICAID, SELFPAY ==
--- NOTE | 2023-12-12 12:37 | MHC.OFFVIS ---
Vital Signs 12/12/23 12:39 Height 5 ft 11 in Weight 182 lb 15.739 oz BMI 25.5 BP 111/69 Blood Pressure Location Lt brachial Position Sitting Pulse 78 Intake Visit Reasons: 5 month follow up Intake Note: Arben presents in the office as a 5 month follow up. CC: He states that his BP goes up when he is constipated. He states that he has constipation constantly due to his hemochromotosis. Would like to scheduled a colonoscopy seems last one was in 2020. Wearing Apparel Shaker Required: No Allergies Yshgvmi-MHM-GcJ Reductase Inhibitor Allergy (Verified 12/12/23 12:40) Palpitations rosuvastatin Adverse Reaction (Mild, Verified 12/12/23 12:40) Unknown metronidazole [From Flagyl] Adverse Reaction (Unknown, Verified 12/12/23 12:40) Nausea, sweats, Diarrhea HPI HPI 5 month follow up: Details: 38 yr old m w/ of GERD< hemochromatosis, IBS here for f/u RECAP: he is only taking famotidine 20 mg OD prn he is noting thin stools and diarrhea he was having constipation before this he had colonoscopy 2020 for abn bowel habit and was normal EGD with esophagitis and erosive gastritis labs with mild lipase elevation and amylase --nml LFT, HGB 18 g/dl had MRI scanned 06/28 with moderate iron overload and normal pancreas Interim: He is getting rx for actinic keratosis still getting phlebotomy for poylcythemia he avoids processed sugar due to heartburn he wants to schedule a colonoscopy due to constipation--requesting hemosiderin staining on biopsies requesting vitamin checks no blood in stool EXAM: GENERAL: The patient is well developed and nontoxic. VITAL SIGNS:see workflow HEENT: Nonicteric sclerae, PERRLA, EOMI. Oropharynx clear. Moist mucous membranes. Conjunctivae appear well perfused. No thyroid mass. CHEST: Chest wall is nontender. HEART: Regular rate and rhythm without murmurs. LUNGS: Clear to auscultation bilaterally. ABDOMEN: Soft, positive bowel sounds, tender epigastrium, no organomegaly.no flank tenderness SKIN: veronica dermatitis with scaly skin, AK on forhead NEUROLOGIC: Cranial nerves II-XII intact without motor/sensory deficit. Psych: normal affect A/P: 1/ Polycythemia, 2/ veronica dermatitis--r/o vit defcn 3/ abn bowel habits 4/ elevated lipase, amylase could be from erosive gastritis or from polycythemia PLAN: 1/ recheck nutrients 2/ EGD for epigastric tenderness and colo --iron staining on bx---suprep 3/ cont with phlebotomy PFSH Medical History 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 Thrombosed external hemorrhoid Autosomal dominant hereditary hemochromatosis Mild intermittent allergic 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 Mood disorder Dizziness Paresthesia Thyroid nodule Anxiety HTN (hypertension) Surgical History Hx of colonoscopy S/P fine needle aspiration Hx of wisdom tooth extraction Family History Father CLL (chronic lymphocytic leukemia) Diabetes Paternal Grandfather Diabetes Maternal Grandmother H/O heart bypass surgery Mother Drug abuse Social History Household Members: None Housing: Apartment Are you a primary date night caregiver to a significant other at home: No Do you presently have visiting nurse or other home services: No Alcohol intake: never Patient Tobacco Use Status: Never used Tobacco service: No Current occupational status: unemployed Physical Exam Vital Signs: Last Vital Signs Pulse 78 12/12/23 12:39 BP 111/69 12/12/23 12:39 BMI result Body Mass Index 25.5 Assessment & Plan Assessment & Plan (1) Abdominal pain: Code(s): R10.9 - Unspecified abdominal pain Category: Medical Plan: see above (2) Malnutrition: Code(s): E46 - Unspecified protein-calorie malnutrition Category: Medical Plan: see above Orders: Orders Vitamin A Today E46 - Unspecified protein-calorie malnutrition Vitamin B12 and Folate Today E46 - Unspecified protein-calorie malnutrition Vitamin B6 Today E46 - Unspecified protein-calorie malnutrition Vitamin D 25-OH Total Today E46 - Unspecified protein-calorie malnutrition Magnesium Today E46 - Unspecified protein-calorie malnutrition US SMA Today R10.9 - Unspecified abdominal pain Vitamin B1 Today E46 - Unspecified protein-calorie malnutrition Vitamin B3 (Niacin) Today E46 - Unspecified protein-calorie malnutrition Vitamin B5 (Pantothenic Acid) Today E46 - Unspecified protein-calorie malnutrition Vitamin C Today E46 - Unspecified protein-calorie malnutrition Vitamin E Today E46 - Unspecified protein-calorie malnutrition Vitamin K1 Today E46 - Unspecified protein-calorie malnutrition Zinc Today E46 - Unspecified protein-calorie malnutrition Ferritin Today E46 - Unspecified protein-calorie malnutrition Homocysteine Today E46 - Unspecified protein-calorie malnutrition Medications: New sodium,potassium,mag sulfates 17.5-3.13-1.6 gram (Suprep Bowel Prep Kit) DILUTE; drink 1/2 at 6-8 pm and half at 11 PM- 1AM 354 mL 0RF Coding Level of Care Code Est Pt Level 3 (51579) Diagnoses Abdominal pain R10.9 Malnutrition E46
[2023-12-12 12:39] VITALS: BP 111/69; PULSE 78; BMI 25.5
== END 2023-12-12 13:22 | disposition home or self-care (01) ==
PROVIDERS: PCP General Practice; Referring Provider General Practice; Visit Provider Internal Medicine Gastroenterology
DX: R10.9 Unspecified abdominal pain (principal); E46 Unspecified protein-calorie malnutrition
CPT/HCPCS: 99213

== ENCOUNTER → 2023-12-12 12:36 | Outpatient (BNVA) | payer MEDICAID, SELFPAY | PROVIDERS: PCP General Practice; Visit Provider Internal Medicine Gastroenterology | DX: R10.9 Unspecified abdominal pain (principal); E46 Unspecified protein-calorie malnutrition; E83.119 Hemochromatosis, unspecified; K59.00 Constipation, unspecified; K21.9 Gastro-esophageal reflux disease without esophagitis; Q87.81 Alport syndrome | CPT/HCPCS: 99212 ==

== ENCOUNTER 2023-12-21 08:26 | Outpatient (REF) | payer MEDICAID, SELFPAY ==
--- NOTE | ~2023-12-21 | US_ITS ---
EXAMINATION: US ABDOMEN (MESENTERIC ARTERIES) WITH DOPPLER CLINICAL INFORMATION: Polycythemia and abdominal pain pls check mesenteric circulation COMPARISON: CT abdomen and pelvis 06/12/2023 TECHNIQUE: Ultrasound along with color Doppler imaging and spectral analysis was performed of the aorta, celiac artery, SMA, KRISTIN, splenic artery and hepatic artery. FINDINGS: AORTA: Velocity proximal to SMA: 135 cm/s Velocity distal to SMA: 122 cm/s CELIAC ARTERY: Velocity with inspiration in supine view: 225 cm/s Velocity during inspiration in the erect position: 121 cm/s SMA: Proximal velocity: 214 cm/s Mid SMA velocity: 244 cm/s Distal SMA velocity: 64.2 cm/s KRISTIN: Velocity: 87.3 cm/s SPLENIC ARTERY: Velocity: 125 cm/s HEPATIC ARTERY: Velocity: 28.1 cm/s US/US SMA IMPRESSION: Velocity in the celiac is slightly elevated in the supine position which normalizes with the erect position suggesting median arcuate ligament compression syndrome. On the CT PE study from 03/12/2023, the celiac is optimally visualized, and no celiac stenosis is seen. All other velocities are unremarkable. Electronically signed by: Kentrell Varela MD 12/23/2023 04:21 PM EDT
== END 2023-12-21 08:27 | disposition home or self-care (01) ==
LOC: HO.HMGCX 08:26
PROVIDERS: PCP General Practice; Visit Provider Internal Medicine Gastroenterology
DX: R10.9 Unspecified abdominal pain (principal)
CPT/HCPCS: 93976

== ENCOUNTER 2024-01-30 09:35 | Outpatient (REF) | payer MEDICAID, SELFPAY ==
[2024-01-30 12:13] LABS: Phosphorus 3.3 mg/dL (2.7-4.5)
[2024-01-30 12:31] LABS: Ferritin 249 ng/mL (20-250)
[2024-01-30 12:41] LABS: Folate 4.6 ng/mL (> or = 4.0); Vitamin B12 689 pg/mL (200-900)
[2024-01-31 17:39] LABS: Homocysteine 13.4 umol/L (<11.4)
[2024-02-02 15:40] LABS: Arsenic, Blood <3 mcg/L (<23); Lead, Blood <1.0 mcg/dL (<3.5); Mercury, Blood <4 mcg/L (<=10)
[2024-02-02 17:03] LABS: Zinc 74 mcg/dL (60-130)
[2024-02-03 10:53] LABS: Methylmalonic Acid 204 nmol/L (55-335)
[2024-02-04 17:03] LABS: Vitamin B1 14 nmol/L (8-30); Vitamin B5 (Pantothenic Acid) 43 ng/mL (<275)
== END 2024-01-30 09:36 | disposition home or self-care (01) ==
LOC: HO.LAB 09:35
PROVIDERS: PCP General Practice; Visit Provider Internal Medicine Gastroenterology
DX: E83.52 Hypercalcemia (principal); E83.110 Hereditary hemochromatosis; E46 Unspecified protein-calorie malnutrition; R10.9 Unspecified abdominal pain
CPT/HCPCS: 36415; 82175; 82607; 82728; 82746; 83090; 83655; 83825; 83921; 84100; 84425; 84591; 84630; 99211

== ENCOUNTER 2024-01-30 09:35 | Outpatient (AMB) | payer MEDICAID, SELFPAY ==
--- NOTE | 2024-01-30 09:38 | A.OFFVIS_ITS ---
Vital Signs 01/30/24 09:40 Height 5 ft 11 in Weight 178 lb 9.191 oz BMI 24.9 BP 126/80 Blood Pressure Location Lt brachial Position Sitting Pulse 74 Intake Visit Reasons: abdominal pains Intake Note: Arben presents in the office as a follow up for abdominal pains. CC: never scheduled for colo - pains in the stomach. He states that there was a maintenance technician 3rd shift that did his ultrasound and states that they suspect MALS. Allergies Wuoephw-ING-EkK Reductase Inhibitor Allergy (Verified 01/30/24 09:40) Palpitations rosuvastatin Adverse Reaction (Mild, Verified 01/30/24 09:40) Unknown metronidazole [From Flagyl] Adverse Reaction (Unknown, Verified 01/30/24 09:40) Nausea, sweats, Diarrhea HPI HPI abdominal pains: Details: 38 yr old m w/ of GERD< hemochromatosis, IBS here for f/u RECAP: he is only taking famotidine 20 mg OD prn he is noting thin stools and diarrhea he was having constipation before this he had colonoscopy 2020 for abn bowel habit and was normal EGD with esophagitis and erosive gastritis labs with mild lipase elevation and amylase --nml LFT, HGB 18 g/dl had MRI scanned 06/28 with moderate iron overload and normal pancreas INTERIM: He still has post prandial epigastric pain discussed the results of labs with high homocysteine he is otherwise stable EXAM: GENERAL: The patient is well developed and nontoxic. VITAL SIGNS:see workflow HEENT: Nonicteric sclerae, PERRLA, EOMI. Oropharynx clear. Moist mucous membranes. Conjunctivae appear well perfused. No thyroid mass. CHEST: Chest wall is nontender. HEART: Regular rate and rhythm without murmurs. LUNGS: Clear to auscultation bilaterally. ABDOMEN: Soft, positive bowel sounds, tender epigastrium, no organomegaly.no flank tenderness SKIN: veronica dermatitis with scaly skin, NEUROLOGIC: Cranial nerves II-XII intact without motor/sensory deficit. Psych: normal affect A/P: 1/ Polycythemia, 2/ veronica dermatitis- 3/ high homocysteine level PLAN: 1/ recheck homocysteine with MMA level 2/ MRA to check celiac axis at [facility] Medical History 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 Thrombosed external hemorrhoid Autosomal dominant hereditary hemochromatosis Mild intermittent allergic 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 Mood disorder Dizziness Paresthesia Thyroid nodule Anxiety HTN (hypertension) Surgical History Hx of colonoscopy S/P fine needle aspiration Hx of wisdom tooth extraction Family History Father CLL (chronic lymphocytic leukemia) Diabetes Paternal Grandfather Diabetes Maternal Grandmother H/O heart bypass surgery Mother Drug abuse Social History Household Members: None Housing: Apartment Are you a primary healthcare administrative assistant to a significant other at home: No Do you presently have visiting nurse or other home services: No Alcohol intake: never Patient Tobacco Use Status: Never used Tobacco service: No Current occupational status: unemployed Physical Exam Vital Signs: Last Vital Signs Pulse 74 01/30/24 09:40 BP 126/80 01/30/24 09:40 BMI result Body Mass Index 24.9 Assessment & Plan Assessment & Plan (1) Hemochromatosis: Code(s): E83.119 - Hemochromatosis, unspecified Category: Medical Qualifiers: Hemochromatosis type: hereditary Qualified Code(s): E83.110 - Hereditary hemochromatosis Plan: see above (2) Abdominal pain: Code(s): R10.9 - Unspecified abdominal pain Category: Medical Plan: r/o MALS Orders: Orders Phosphorus Today E83.52 - Hypercalcemia Homocysteine Today E83.110 - Hereditary hemochromatosis Methylmalonic Acid Today E83.110 - Hereditary hemochromatosis MR angio abdomen wo/w con Today R10.9 - Unspecified abdominal pain Coding Level of Care Code Est Pt Level 1 (54110) Diagnoses Hereditary hemochromatosis E83.110 Hemochromatosis type: hereditary Abdominal pain R10.9
[2024-01-30 09:40] VITALS: BP 126/80; PULSE 74; BMI 24.9
== END 2024-01-30 10:27 | disposition home or self-care (01) ==
PROVIDERS: PCP General Practice; Visit Provider Internal Medicine Gastroenterology
DX: E83.110 Hereditary hemochromatosis (principal); R10.9 Unspecified abdominal pain

== ENCOUNTER 2024-02-24 13:57 | Outpatient (REF) | payer MEDICAID, SELFPAY ==
[2024-02-24 16:13] LABS: MANUAL DIFF FLAG NO
[2024-02-24 16:15] LABS: Basophils Absolute Auto 0.1 X10*3/uL (0.0-0.2); Basophils Percent Auto 0.8 % (0-2); Eosinophils Absolute Auto 0.1 X10*3/uL (0.0-0.4); Eosinophils Percent Auto 1.4 % (0-4); Hematocrit 49.9 % (42.0-52.0); Hemoglobin 17.9 g/dl (14.0-18.0); Imm Gran Abs Auto 0.01 X10*3/uL (0.00-0.03); Imm Gran Pct Auto 0.2 % (0.0-0.4); Lymphocytes Absolute Auto 2.2 X10*3/uL (1.2-4.9); Lymphocytes Percent Auto 33.2 % (20-40); Mean Corpuscular HGB Conc 35.9 g/dl (31.0-36.0); Mean Corpuscular Hemoglobin 32.4 pg (27.0-33.0); Mean Corpuscular Volume 90.2 fL (80.0-98.0); Mean Platelet Volume 9.7 fL (9.4-12.4); Monocytes Absolute Auto 0.6 X10*3/uL (0.1-1.2); Monocytes Percent Auto 8.9 % (2-11); Neutrophils Absolute Auto 3.6 x10*3/uL (2.0-8.3); Neutrophils Percent Auto 55.5 % (45-73); Platelet Count 279 X10*3/uL (160-400); Red Blood Count 5.53 X10*6/uL (4.60-5.80); Red Cell Distribution Width 11.8 % (11.0-16.0); White Blood Count 6.5 X10*3/uL (4.8-10.8)
[2024-02-24 17:16] LABS: Anion Gap 13 (12-20); Blood Urea Nitrogen 13 mg/dL (9-16); Calcium 9.6 mg/dL (8.4-10.2); Carbon Dioxide 28 mmol/L (22-29); Chloride 105 mmol/L (96-108); Estimated Glomerular Filt Rate > 60; Glucose Random 114 mg/dL (60-115); Magnesium 2.3 mg/dL (1.6-2.6); Potassium 4.8 mmol/L (3.3-5.1); Sodium 141 mmol/L (135-145)
[2024-02-24 17:25] LABS: TSH reflex Free T4 2.97 uIU/mL (0.32-4.0)
== END 2024-02-24 13:58 | disposition home or self-care (01) ==
LOC: HO.HMGCX 13:57
PROVIDERS: PCP General Practice; Visit Provider Internal Medicine
DX: E01.0 Iodine-deficiency related diffuse (endemic) goiter (principal); R00.2 Palpitations
CPT/HCPCS: 36415; 76536; 80048; 83735; 84443; 85025

== ENCOUNTER 2024-02-27 23:08 | Emergency (ER) | payer MEDICAID, SELFPAY ==
[2024-02-27 23:17] VITALS: BP 130/72; BP 148/96; PULSE 104; PULSE 113; RESP 16; TEMP 36.8; O2SAT 97; BMI 25.2
--- NOTE | 2024-02-27 23:22 | ECG_ITS ---
Test Reason : PALPATIONS Blood Pressure : / mmHG Vent. Rate : 086 BPM Atrial Rate : 086 BPM P-R Int : 150 ms QRS Dur : 080 ms QT Int : 354 ms P-R-T Axes : 059 066 049 degrees QTc Int : 423 ms Normal sinus rhythm Normal ECG When compared with ECG of 12-JUN-2023 04:09, No significant change was found Referred By: Generic ED Physician Electronically Signed By:Willie Marin
--- NOTE | 2024-02-27 23:34 | PC.NURSE ---
Patient presents to ED from home for evaluation of high BP and tachycardia, intermittent diffuse chest discomfort. patient denies SOB, nausea, vomiting, non-diaphoretic. Patient has history of Anxiety, patient reports taking Lorazepam 0.25 mg PO prior coming to ED. Patient changed into a hospital attire, compliance monitor applied. Joni medical technologist microbiology at bedside performing EKG and lab draw, call avery placed within patient's reach.
[2024-02-27 23:38] VITALS: BP 120/87; PULSE 93; RESP 16; TEMP 36.9; O2SAT 97
--- NOTE | 2024-02-27 23:50 | MHC.EDTECH ---
Patient was biba ,ekg taken and was read by Provider ,blood drawn and sent to lab ,vitals taken ,patient was change into hospital attire ,and hooked up to groundwater monitoring technician .Call avery within pt reach .
[2024-02-27 23:52] LABS: Basophils Absolute Auto 0.1 X10*3/uL (0.0-0.2); Basophils Percent Auto 0.6 % (0-2); Eosinophils Absolute Auto 0.1 X10*3/uL (0.0-0.4); Eosinophils Percent Auto 1.6 % (0-4); Hemoglobin 17.9 g/dl (14.0-18.0); Imm Gran Abs Auto 0.02 X10*3/uL (0.00-0.03); Imm Gran Pct Auto 0.2 % (0.0-0.4); Lymphocytes Absolute Auto 1.9 X10*3/uL (1.2-4.9); Lymphocytes Percent Auto 23.2 % (20-40); MANUAL DIFF FLAG NO; Mean Corpuscular HGB Conc 36.5 g/dl (31.0-36.0); Mean Corpuscular Hemoglobin 32.5 pg (27.0-33.0); Mean Corpuscular Volume 89.1 fL (80.0-98.0); Mean Platelet Volume 9.5 fL (9.4-12.4); Monocytes Absolute Auto 0.7 X10*3/uL (0.1-1.2); Monocytes Percent Auto 8.1 % (2-11); Neutrophils Absolute Auto 5.6 x10*3/uL (2.0-8.3); Neutrophils Percent Auto 66.3 % (45-73); Platelet Count 211 X10*3/uL (160-400); Red Cell Distribution Width 11.6 % (11.0-16.0); White Blood Count 8.4 X10*3/uL (4.8-10.8)
[2024-02-28 00:09] LABS: Anion Gap 13 (12-20); Blood Urea Nitrogen 12 mg/dL (9-16); Calcium 9.4 mg/dL (8.4-10.2); Carbon Dioxide 22 mmol/L (22-29); Chloride 108 mmol/L (96-108); Creatinine Clr Calc Pharmacy 125.5; Estimated Glomerular Filt Rate > 60; Glucose Random 122 mg/dL (60-115); Potassium 3.6 mmol/L (3.3-5.1); Sodium 139 mmol/L (135-145)
[2024-02-28 00:17] LABS: Troponin-I High Sensitivity < 2.7 ng/L (<3.5-35.0)
--- NOTE | 2024-02-28 00:35 | ED.GENADULT ---
HPI - General Adult General Chief complaint: General Medical Stated complaint: anxiety, migraine, sinus tach, hypertension Time Seen by Provider: 02/28/24 00:35 History of Present Illness ED Provider: Vlad COLLINS narrative: The patient is a 38-year-old male has a long history of difficulty sleeping. He has a therapist and has tried multiple pharmacological and nonpharmacological methods to try to help improve his sleep. He feels that most things he has tried have not been helpful. Earlier this year the patient has been prescribed a short course of lorazepam that seemed to help. His primary care doctor then gave him a 2nd prescription for lorazepam. In early July his PCP provided a prescription for 30 tablets of lorazepam, 1 mg each. The patient has been husbanding these tablets over the last 6 months and using them very little if at all. Over the past 2 weeks however he started using the lorazepam more frequently. He was taking half a pill at bedtime most nights. In an effort to try to avoid any dependence on this medication he had 1st took half a dose of lorazepam and more recently only 0.25 mg. Tonight he was trying to avoid taking any lorazepam at all. He developed palpitations and felt that his heart was racing. His heart rate was over 130. He then took his blood pressure and his blood pressure was something like 170/110. Ultimately took 0.25 mg of lorazepam and called 911 and was brought to the hospital. Related Data Home Medications ?Medication ?Instructions ?Recorded ?Confirmed triamcinolone acetonide 0.025 % 1 appl topical BID PRN Rash 06/12/23 06/12/23 topical cream lorazepam 0.5 mg tablet 0.5 mg PO BEDTIME PRN 12/12/23 Previous Rx's ?Medication ?Instructions ?Recorded famotidine 20 mg tablet (Pepcid) 20 mg PO BEDTIME #30 tabs 06/13/23 polyethylene glycol 3350 17 17 g PO DAILY constipation #119 06/13/23 gram/dose oral powder (Miralax) grams cholecalciferol (vitamin D3) 50 10,000 unit PO GARCIA@2100 #30 caps 09/22/23 mcg (2,000 unit) capsule gabapentin 100 mg capsule 100 mg PO BEDTIME PRN sleep #30 02/28/24 caps Allergies Allergy/AdvReac Type Severity Reaction Status Date / Time Dxzgxdm-BZN-PyK Reductase Allergy Palpitation Verified 02/27/24 23:19 Inhibitor s rosuvastatin AdvReac Mild Unknown Verified 02/27/24 23:19 metronidazole [From Flagyl] AdvReac Unknown Nausea, Verified 02/27/24 23:19 sweats, Diarrhea Review of Systems Review of Systems: Yes all other systems are reviewed and are negative [facility] Past Medical History Medical History 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 Thrombosed external hemorrhoid Autosomal dominant hereditary hemochromatosis Mild intermittent allergic 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 Mood disorder Dizziness Paresthesia Thyroid nodule Anxiety HTN (hypertension) Surgical History Hx of colonoscopy S/P fine needle aspiration Hx of wisdom tooth extraction Family History Family History Father CLL (chronic lymphocytic leukemia) Diabetes Paternal Grandfather Diabetes Maternal Grandmother H/O heart bypass surgery Mother Drug abuse Social History Social History Household Members: None Housing: Apartment Are you a primary hemodialysis patient care specialist to a significant other at home: No Do you presently have visiting nurse or other home services: No Alcohol intake: never Patient Tobacco Use Status: Never used Tobacco Smoked in Last 30 Days: No Use of substances other than those prescribed or required for medical reasons: No Advance Directives: No Advance Directives Information Provided: Yes Do you have a plan to hurt others: No Plan service: No Current occupational status: unemployed Physical Exam ED Vital Signs: Vital Signs - 24 hr 02/27/24 23:17 02/27/24 23:38 Temperature 98.3 F 98.4 F Pulse Rate 104 H 93 Respiratory Rate 16 16 Blood Pressure 148/96 H 120/87 Pulse Oximetry 97 97 Oxygen Delivery Method Room Air Room Air BMI result Body Mass Index 25.2 Const Other: The patient is a slim 38-year-old male who was awake and alert and does not seem in acute distress. HENMT Other: Face is symmetrical. Mucous membranes moist. Posterior pharynx normal. Eyes General: appearance normal, both eyes and all related structures Neck Neck: Yes full ROM Resp Effort & Inspection: normal respiratory effort Auscultation: clear to auscultation bilaterally Cardio Rate: regular rate Rhythm: regular rhythm Heart sounds: S1 normal heart sound present and S2 normal heart sound present GI Other: Abdomen is soft and nontender Skin Other: Skin is pale and dry Neuro Other: With a normal mental status. Cranial nerves are grossly intact. He moves his extremities normally and appropriately. Extrem Other: No calf swelling or tenderness, no asymmetry, no edema Medical Decision Making Medical Decision Making MDM Narrative: The patient is a 38-year-old male who arrives by ambulance complaining of palpitations and hypertension. He has chronic problems sleeping. Also is very wary of taking medications. He was given a prescription for 30 tablets of lorazepam, 1 mg each, in July by his PCP. He has not regularly used the lorazepam until the last 2 weeks when tired of not sleeping any started to take a half pill at bedtime which helped him sleep. Couple of days ago he reduce the dose to a quarter of a tablet. Tonight he tried to not take any lorazepam at all. He developed palpitations and became tachycardic and he reports that his blood pressure was quite high at home as well. He called an ambulance. He says that he took 0.25 mg of lorazepam before the ambulance transported him here. He is now feeling better and he attributes this to the lorazepam that he had taken before arriving. He has an unremarkable workup. His EKG is unremarkable. Troponin is negative. D-dimer is normal. Clinically the patient looks well. The patient was reassured that there was no acutely dangerous medical process. The patient suspects that he probably has become fairly quickly accustomed to the lorazepam he has been using over the last couple of weeks. He is hoping to avoid ongoing use of benzodiazepines. I will write a prescription for gabapentin that he may use to see if this helps as a substitute for the lorazepam. I will prescribe 100 mg tablets. He should take these as needed at bedtime to help him sleep. He may take a 2nd dose if he develops any of the palpitations or other symptoms. He should follow up with his PCP. He is apparently also seeing a sleep medicine doctor. Lab Data 02/27/24 23:47 02/27/24 23:47 Labs: Lab Results 02/27/24 02/28/24 Range/Units 23:47 01:03 WBC 8.4 (4.8-10.8) X10*3/uL RBC 5.50 (4.60-5.80) X10*6/uL Hgb 17.9 (14.0-18.0) g/dl Hct 49.0 (42.0-52.0) % MCV 89.1 (80.0-98.0) fL MCH 32.5 (27.0-33.0) pg MCHC 36.5 H (31.0-36.0) g/dl RDW 11.6 (11.0-16.0) % Plt Count 211 (160-400) X10*3/uL MPV 9.5 (9.4-12.4) fL Immature Gran % (Auto) 0.2 (0.0-0.4) % Neut % (Auto) 66.3 (45-73) % Lymph % (Auto) 23.2 (20-40) % [place] % (Auto) 8.1 (2-11) % Eos % (Auto) 1.6 (0-4) % Baso % (Auto) 0.6 (0-2) % Lymph # (Auto) 1.9 (1.2-4.9) X10*3/uL [place] # (Auto) 0.7 (0.1-1.2) X10*3/uL Eos # (Auto) 0.1 (0.0-0.4) X10*3/uL Baso # (Auto) 0.1 (0.0-0.2) X10*3/uL Abs Immat Gran (auto) 0.02 (0.00-0.03) X10*3/uL Absolute Neuts (auto) 5.6 (2.0-8.3) x10*3/uL Absolute Nucleated RBC 0.000 (0.0-0.012) X10*3/uL Nucleated RBC % (auto) 0.0 (0.0-0.2) /100WBC D-Dimer High Sensitivty 218 NG/ML Sodium 139 (135-145) mmol/L Potassium 3.6 D (3.3-5.1) mmol/L Chloride 108 (96-108) mmol/L Carbon Dioxide 22 (22-29) mmol/L Anion Gap 13 (12-20) BUN 12 (9-16) mg/dL Creatinine 0.85 (0.5-1.4) mg/dL Estim Creat Clear Calc 125.5 Estimated GFR > 60 Random Glucose 122 H (60-115) mg/dL Calcium 9.4 (8.4-10.2) mg/dL Troponin I High Sens < 2.7 (<3.5-35.0) ng/L Independent Interpretation I performed an independent interpretation of an: EKG Interpretation: EKG at 23:35 shows normal sinus rhythm at 86 beats per minute. Unremarkable EKG. Discharge Plan Discharge Clinical Impression: Palpitations, Difficulty sleeping Patient Disposition: Home, Self-Care Additional Instructions: Your testing in the emergency room tonight is reassuring from the point of view of any acutely dangerous process. I have sent a prescription for gabapentin that you can use at bedtime to try to help with sleep as an alternative to the lorazepam you has been using. I would recommend taking a dose of the gabapentin in the evening when you were getting ready for bed. If after a single dose of the gabapentin you develop any of the same symptoms that brought you to the emergency room tonight you can try a secondnd dose of gabapentin. Please contact your regular doctor's office to schedule a follow up appointment to discuss this issue further. Also follow up with your sleep medicine doctor. Return to the emergency room if significantly worse. Prescriptions: New gabapentin 100 mg capsule 100 mg PO BEDTIME PRN (Reason: sleep) Qty: 30 0RF No Action cholecalciferol (vitamin D3) 50 mcg (2,000 unit) capsule 10,000 unit PO GARCIA@2100 Qty: 30 2RF triamcinolone acetonide 0.025 % cream 1 appl TOPICAL BID PRN (Reason: Rash) polyethylene glycol 3350 [Miralax] 17 gram/dose powder 17 g PO DAILY Qty: 119 0RF famotidine [Pepcid] 20 mg tablet 20 mg PO BEDTIME Qty: 30 0RF lorazepam 0.5 mg tablet 0.5 mg PO BEDTIME PRN Referrals: Asha Dodge MD [Physician] - (difficulty sleeping) Print Language: Ugandan
[2024-02-28 01:14] LABS: D Dimer High Sensitivity 218 NG/ML
[2024-02-28 02:07] VITALS: BP 115/83; PULSE 77; RESP 16; TEMP 36.7; O2SAT 98
== END 2024-02-28 02:09 | disposition home or self-care (01) ==
PROVIDERS: Emergency Provider Emergency Medicine
DX: R00.2 Palpitations (principal); G47.00 Insomnia, unspecified; I10 Essential (primary) hypertension; E78.5 Hyperlipidemia, unspecified; Z79.899 Other long term (current) drug therapy
CPT/HCPCS: 36415; 80048; 84484; 85025; 85379; 93005; 99283; 99284

== ENCOUNTER → 2024-02-27 23:22 | Outpatient (BNV) | payer MEDICAID, SELFPAY | PROVIDERS: Emergency Provider Emergency Medicine; Visit Provider Internal Medicine Cardiovascular Disease | DX: R00.2 Palpitations (principal) | CPT/HCPCS: 93010 ==

== ENCOUNTER → 2024-05-02 14:38 | Outpatient (REF) | payer MEDICAID, SELFPAY ==
--- OUTSIDE RECORDS SUMMARY | 2024-05-02 18:03 | XMS_ITS | Encounter Summary ---
Author Organization [employer] Address [address] [place] [address] Care Team Providers Care Records Manager Name Role Phone sAha Dodge MD Primary Care Provider [phone] Reason for Visit * Reason Onset Date Comments PT1 12/13/2023 Encounter Details Date Type Department Care Team ([facility] st Contact Info) Description 12/13/2023 Telephone [facility] MEDICINE [address] [place], [place] [phone] Asha Dodge MD [address] [place], [place] [phone] PT1 Social History Tobacco Use Types Packs/Day Years Used Date Smoking Tobacco: Never Passive Smoke Exposure: Never Smokeless Tobacco: Never Alcohol Use Standard Drinks/Week Comments Never 0 (1 standard drink = 0.6 oz pur e alcohol) Depression Answer Date Recorded Patient Health Questionnaire-9 Score 3 06/03/2023 Patient Health Questionnaire-9 Score 3 06/03/2023 Last PHQ-9: Questionnaire Data Not on file 0 06/03/2023 Housing Stability Answer Date Recorded What is your housing situation today? I have brianna garay 06/03/[address] you li ve. Do you have problems with any of the following? None of the above 06/03/2023 Food Insecurity Answer Date Recorded Within the past 12 months, y ou worried that your food would run out before you got money to buy more: Never True 06/03/2023 Within the past 12 months,th e food you bought just didn't last and you didn't have enough money to get more: Never True Transportation Answer Date Recorded In the past 12 months, has l ack of transportation kept you from medical appts, meetings, work or from getting things needed for daily living? Yes, it has kept me from medical appointments or getting medications. 06/03/2023 Utilities Answer Date Recorded In the past 12 months, has t he electric, gas, 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 threatened to shut off services in your home? No 06/03/2023 Depression Answer Date Recorded Patient Health Questionnaire-2 Score 0 06/03/2023 Sex and Gender Information Value Date Recorded Sex Assigned at Male 01/04/2022 10:22 AM EDT Legal Sex Male 10:22 AM EDT Gender Identity Male 01/04/2022 10:22 AM EDT Sexual Orientation Choose not to disclose 2021 10:22 AM EDT documented as of this encounter Miscellaneous Notes * Telephone Encounter - Clare Douglass - 12/13/2023 3:05 PM EDT Patient calling requesting PT1 Home Address verified: Y/N: Yes Provider name or facility name: [facility] Facility Address: [address] [place] [address] [place] [address] Escort needed: Y/N: Yes Do you have a wheelchair: Y/N: No If yes- Manual or electric: n/a Visits: 1 x 3 months documented in this encounter Plan of Treatment Not on file documented as of this encounter Visit Diagnoses Not on filedocumented in this encounter Additional Health Concerns Assessment Noted Time PHQ-9 Depression Total Score: 3 06/03/19 24 3:02 PM EDT documented as of this encounter Care Teams Records Manager Relationship Specialty Start Date End Date Asha Dodge MD [address] [place] [id number] PCP - General Family Medicine 12/29/22 documented as of this encounter
--- OUTSIDE RECORDS SUMMARY | 2024-05-02 18:03 | XMS_ITS | Encounter Summary ---
Author Organization [employer] Address [address] [place] [address] Care Team Providers Care Methods And Procedures Analyst Name Role Phone Asha Dodge MD Primary Care Provider [phone] Reason for Visit * Reason Onset Date Comments Nurse Triage 08/08/2023 Encounter Details Date Type Department Care Team ([facility] st Contact Info) Description 08/08/2023 Telephone [facility] MEDICINE [address] [place], [place] [phone] Asha Dodge MD [address] [place], [place] [phone] Nurse Triage Social History Tobacco Use Types Packs/Day Years [...] encounter Miscellaneous Notes * Telephone Encounter - Latosha Jamison - 08/08/2023 3:18 PM EDT Symptom: Poisoning - Caller Reports Outcome: Transfer to a nurse or provider NOW! Reason: This is the only possible outcome for this symptom The caller accepted this outcome documented in this encounter Plan of Treatment Not on file documented as of this encounter Visit Diagnoses Not on filedocumented in this encounter Additional Health Concerns Assessment Noted Time PHQ-9 Depression Total Score: 3 06/03/19 24 3:02 PM EDT documented as of this encounter Care Teams Methods And Procedures Analyst Relationship Specialty Start Date End Date Asha Dodge MD [address] [place] [address] PCP - General Family Medicine 12/29/22 documented as of this encounter
--- OUTSIDE RECORDS SUMMARY | 2024-05-02 18:03 | XMS_ITS | Encounter Summary ---
Author Organization [employer] Address [address] 7t [place] [address] Care Team Providers Care Employee Benefits Specialist Name Role Phone Asha Dodge MD Primary Care Provider [phone] Reason for Visit * Reason Onset Date Comments Results 12/21/2023 Encounter Details Date Type Department Care Team ([facility] st Contact Info) Description 12/21/2023 Telephone [facility] MEDICINE [address] [place], [place] [phone] Asha Dodge MD [address] [place], [place] [phone] Results Social History Tobacco Use Types Packs/Day Years [...] your housing situation today? I have brianna sing 06/03/[address] you li [...] AM EDT documented as of this encounter Plan of Treatment Not on file documented as of this encounter Visit Diagnoses Not on filedocumented in this encounter Additional Health Concerns Assessment Noted Time PHQ-9 Depression Total Score: 3 06/03/19 24 3:02 PM EDT documented as of this encounter Care Teams Employee Benefits Specialist Relationship Specialty Start Date End Date Asha Dodge MD [address] [place] [id number] PCP - General Family Medicine 12/29/22 documented as of this encounter
--- OUTSIDE RECORDS SUMMARY | 2024-05-02 18:03 | XMS_ITS | Encounter Summary ---
Author Organization [employer] Address [address] 7t [place] [address] Care Team Providers Care Pet Care Associate Name Role Phone Asha Dodge MD Primary Care Provider [phone] Encounter Details Date Type Department Care Team ([facility] st Contact Info) Description 12/02/2022 Orders Only [facility] MED [facility] PEDS [address] [place], [place] [phone] Kaylie Cardona MD [address] [place] [address] Memory loss (Primary Dx) Social History Tobacco Use Types Packs/Day Years Used Date Smoking Tobacco: Never Passive Smoke Exposure: Never Smokeless Tobacco: Never Alcohol Use Standard Drinks/Week Comments Never 0 (1 standard drink = 0.6 oz pur e alcohol) Sex and Gender Information Value Date Recorded Sex Assigned at Male 01/04/2022 10:22 AM EDT Legal Sex Male 10:22 AM EDT Gender Identity Male 01/04/2022 10:22 AM EDT Sexual Orientation Choose not to disclose 2021 10:22 AM EDT documented as of this encounter Plan of Treatment Scheduled Orders Name Type Priority Associated Diagnoses Orde r Schedule Lipid Panel, Standard Lab Routine Memory loss Expected: 01/01/2023 (Approximate), Expires: 12/03/2023 documented as of this encounter Visit Diagnoses Diagnosis Memory loss- Primary documented in this encounter Care Teams Pet Care Associate Relationship Specialty Start Date End Date Asha Dodge MD [address] [place] [address] PCP - General Family Medicine 12/29/22 documented as of this encounter
--- OUTSIDE RECORDS SUMMARY | 2024-05-02 18:03 | XMS_ITS | Encounter Summary ---
Author Organization [employer] Address [address] 7[address] [place] [address] Care Team Providers Care Curriculum Consultant Name Role Phone Asha Dodge MD Primary Care Provider [phone] Reason for Visit * Reason Onset Date Comments PT-1 03/15/2024 Encounter Details Date Type Department Care Team ([facility] st Contact Info) Description 03/15/2024 Telephone [facility] MEDICINE [address] [place], [place] [phone] Asha Dodge MD [address] [place], [place] [phone] PT-1 Social History Tobacco Use Types Packs/Day Years [...] is your housing situation today? I have briannakeya garay 03/16/[address] you li ve. Do you have problems with any of the following? None of the above;Inadequate heat 03/16/2024 Food Insecurity Answer Date Recorded Within the past 12 months, y ou worried that your food would run out before you got money to buy more: Sometimes True 2024 Within the past 12 months,th e food you bought just didn't last and you didn't have enough money to get more: Sometimes True 03/16/2024 Transportation Answer Date Recorded In the past 12 months, has l ack of transportation kept you from medical appts, meetings, work or from getting things needed for daily living? No 03/16/2024 Utilities Answer Date Recorded In the past 12 months, has t he electric, gas, 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 threatened to shut off services in your home? No 06/03/2023 Depression Answer Date Recorded Patient Health Questionnaire-2 Score 0 06/03/2023 Internet Access Answer Date Recorded Internet Access Q1 Yes 03/16/2024 Internet Access Q2 Not on file 03/16/2024 Sex and Gender Information Value Date Recorded Sex Assigned at Male 01/04/2022 10:22 AM EDT Legal Sex Male 10:22 AM EDT Gender Identity Male 01/04/2022 10:22 AM EDT Sexual Orientation Choose not to disclose 2021 10:22 AM EDT documented as of this encounter Miscellaneous Notes * Telephone Encounter - Lj Nair - 03/15/2024 11:40 AM EST Patient calling requesting PT1 Home Address verified: Y/N: Yes Provider name or facility name: [facility] [address] [place] [address] Escort needed: Y/N: No Do you have a wheelchair: Y/N: No Visits: (2) ( x monthly ) documented in this encounter Plan of Treatment Not on file documented as of this encounter Visit Diagnoses Not on filedocumented in this encounter Additional Health Concerns Assessment Noted Time PHQ-9 Depression Total Score: 3 06/03/19 24 3:02 PM EDT documented as of this encounter Care Teams Curriculum Consultant Relationship Specialty Start Date End Date Asha Dodge MD [address] [place] [address] PCP - General Family Medicine 12/29/22 documented as of this encounter
--- OUTSIDE RECORDS SUMMARY | 2024-05-02 18:03 | XMS_ITS | Encounter Summary ---
Author Organization [employer] Address [address] [place] [address] Care Team Providers Care Learning And Development Administrator Name Role Phone Asha Dodge MD Primary Care Provider [phone] Reason for Visit * Reason Onset Date Comments PT-1 11/09/2023 Encounter Details Date Type Department Care Team ([facility] st Contact Info) Description 11/09/2023 Telephone [facility] MEDICINE [address] [place], [place] [phone] Asha Dodge MD [address] [place], [place] [phone] PT-1 Social History Tobacco Use Types Packs/Day [...] encounter Miscellaneous Notes * Telephone Encounter - Sean Espinal - 11/09/2023 3:43 PM EDT Patient calling requesting PT1 Home Address verified: Y/N: Yes Provider name or facility name: [facility] Facility Address: [address] [place] [address] Escort needed: Y/N: No Do you have a wheelchair: Y/N: No If yes- Manual or electric: no Visits: 6 appt is on 11/22 @ 3pm documented in this encounter Plan of Treatment Not on file documented as of this encounter Visit Diagnoses Not on filedocumented in this encounter Additional Health Concerns Assessment Noted Time PHQ-9 Depression Total Score: 3 06/03/19 24 3:02 PM EDT documented as of this encounter Care Teams Learning And Development Administrator Relationship Specialty Start Date End Date Asha Dodge MD [address] [place] [address] PCP - General Family Medicine 12/29/22 documented as of this encounter
--- OUTSIDE RECORDS SUMMARY | 2024-05-02 18:03 | XMS_ITS ---
Author Organization [facility] Address [address] [place], [place] [phone] Care Team Providers Care Armed Guard Name Role Phone Eleonora Dillard Unavailable [phone] Sebastian Rachel Unavailable Unavailable REASON FOR VISIT [facility] Encounters Encounter Location Date Provider Diagnosis [facility] [address] [place], [place] [phone] 02/17/2024 Eleonora Dillard Plan Of Treatment No Information Progress Notes * Arben EMANUELDOB: [birth year] (38 yo M)Acc No.[id number]:02/17/2024 Patient:?Arben EMANUEL :1985???Age:38 Y???Sex:Male Address:[address], [place], [address] * true * Date:? Generated for Krystin nettles/Benjamin/eTransmitting on:?05/02/2024 04:36 PM EST
--- OUTSIDE RECORDS SUMMARY | 2024-05-02 18:03 | XMS_ITS | Encounter Summary ---
Author Organization [employer] Address [address] [place] [address] Care Team Providers Care Tractor Operator Name Role Phone Asha Dodge MD Primary Care Provider Reason for Visit * Reason Onset Date Comments PT1 11/21/2023 Encounter Details Date Type Department Care Team ([facility] st Contact Info) Description 11/21/2023 Telephone [facility] MEDICINE [address] [place], [place] [phone] Asha Dodge MD [address] [place], [place] [phone] PT1 Social History Tobacco Use Types Packs/Day [...] encounter Miscellaneous Notes * Telephone Encounter - Fiorella Garcia - 11/21/2023 11:26 AM EDT Patient calling requesting PT1 Home Address verified: Y/N: Yes Provider name or facility name: PCP Facility Address: [address] [place] [address] Escort needed: Y/N: No Do you have a wheelchair: Y/N: No If yes- Manual or electric: Visits: 1-2 times a month Blayne 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 Pt asked if new request can be summit today due to having couple appt this week. Any questions please contact pt to clarify. documented in this encounter Plan of Treatment Not on file documented as of this encounter Visit Diagnoses Not on filedocumented in this encounter Additional Health Concerns Assessment Noted Time PHQ-9 Depression Total Score: 3 06/03/19 24 3:02 PM EDT documented as of this encounter Care Teams Tractor Operator Relationship Specialty Start Date End Date Asha Dodge MD [address] [place] [address] PCP - General Family Medicine 12/29/22 documented as of this encounter
--- OUTSIDE RECORDS SUMMARY | 2024-05-02 18:03 | XMS_ITS | Encounter Summary ---
Author Organization [employer] Address [address] [place] [address] Care Team Providers Care Industrial Management Teacher Name Role Phone Asha Dodge MD Primary Care Provider [phone] Encounter Details Date Type Department Care Team (Late st Contact Info) Description 12/02/2023 Orders Only [facility] [address] [place], [place] [phone] Asha Dodge MD [address] [place], [place] [phone] Social History Tobacco Use Types Packs/Day Years [...] on file documented as of this encounter Procedures Procedure Name Priority Date/Time Associated Diagnosis Comments US SMA Routine 12/21/2023 9:03 AM EDT documented in this encounter Results * US SMA (12/21/2023 9:03 AM EDT) Anatomical Region Laterality Modality Abdomen Ultrasound 12/21/2023 9:03 AM EDT Narrative 12/23/2023 4:24 PM EDT ? [facility] ?[address] ? [place] [address] ? Ultrasound Report ? Signed ? Patient: Arben Emanuel ?MR#: [id number] ? : 1985 ?Acct:[id number] ? Age/Sex: 38 / M ?ADM Date: 12/21/23 ? Loc: HO.HMGCX ? Attending Dr: Marco Spears MD ? Ordering Physician: Marco Spears MD ?? Date of Service: 12/21/23 ?? Procedure(s): US SMA ?? Accession Number(s): [id number] ? cc: Marco Spears MD; Asha Dodge ? EXAMINATION: ?? US ABDOMEN (MESENTERIC ARTERIES) WITH DOPPLER ? CLINICAL INFORMATION: ?? Polycythemia and abdominal pain pls check mesenteric circulation ? COMPARISON: ?? CT abdomen and pelvis 06/12/2023 ? TECHNIQUE: ?? Ultrasound along with color Doppler imaging and spectral analysis was ?? performed of the aorta, celiac artery, SMA, KRISTIN, splenic artery and ?? hepatic artery. ? FINDINGS: ? AORTA: ?? Velocity proximal to SMA: 135 cm/s ?? Velocity distal to SMA: 122 cm/s ? CELIAC ARTERY: ?? Velocity with inspiration in supine view: 225 cm/s ?? Velocity during inspiration in the erect position: 121 cm/s ? SMA: ?? Proximal velocity: 214 cm/s ?? Mid SMA velocity: 244 cm/s ?? Distal SMA velocity: 64.2 cm/s ? KRISTIN: ?? Velocity: 87.3 cm/s ? SPLENIC ARTERY: ?? Velocity: 125 cm/s ? HEPATIC ARTERY: ?? Velocity: 28.1 cm/s ? US/ SMA ?? IMPRESSION: ?? Velocity in the celiac is slightly elevated in the supine position ?? 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 On the CT PE study from 03/12/2023, the ?? celiac is optimally visualized, and no celiac stenosis is seen. All ?? other velocities are unremarkable. ? Electronically signed by: ??Kentrell Varela MD ??12/23/2023 04:21 PM EDT ? Dictated By: ?Kentrell Varela MD ? Signed By: ?<Electronically signed by Kentrell Varela MD in OV> ? 12/23/23 1621 ? DD/ 0903 ? TD/TT: 12/21/23 0930 ? Machinist Bench: SS ? Procedure Note Leif Rust - 12/23/2023 [facility] [address] [place] [address] Dr. Damon, [place] [id number] Ultrasound Report Signed Patient: Landen EmanuelonyMR#: [id number] : 1985Acct:[id number] Age/Sex: 38 / MADM Date: 12/21/23 Loc: HO.HMGCX Attending Dr: Marco Spears MD Ordering Physician: Marco Spears MD Date of Service: 12/21/23 Procedure(s): [facility] Accession Number(s): [id number] cc: Marco Spears MD; Asha Dodge EXAMINATION: US ABDOMEN (MESENTERIC ARTERIES) WITH DOPPLER CLINICAL INFORMATION: Polycythemia and abdominal pain pls check mesenteric circulation COMPARISON: CT abdomen and pelvis 06/12/2023 TECHNIQUE: Ultrasound along with color Doppler imaging and spectral analysis was performed of the aorta, celiac artery, SMA, KRISTIN, splenic artery and hepatic artery. FINDINGS: AORTA: Velocity proximal to SMA: 135 cm/s Velocity distal to SMA: 122 cm/s CELIAC ARTERY: Velocity with inspiration in supine view: 225 cm/s Velocity during inspiration in the erect position: 121 cm/s SMA: Proximal velocity: 214 cm/s Mid SMA velocity: 244 cm/s Distal SMA velocity: 64.2 cm/s KRISTIN: Velocity: 87.3 cm/s SPLENIC ARTERY: Velocity: 125 cm/s HEPATIC ARTERY: Velocity: 28.1 cm/s US/US SMA IMPRESSION: Velocity in the celiac is slightly elevated in the supine position which normalizes with the erect position suggesting median arcuate ligament compression syndrome. On the CT PE study from 03/12/2023, the celiac is optimally visualized, and no celiac stenosis is seen. All other velocities are unremarkable. Electronically signed by: Kentrell Varela MD 12/23/2023 04:21 PM EDT RP Dictated By: Kentrell Varela MD Signed By: <Electronically signed by Kentrell Varela MD in OV> 12/23/23 1621 DD/ 0903 TD/TT: 12/21/23929 Machinist Bench: [facility] External Provider IMG US PROCEDURES Final Result documented in this encounter Visit Diagnoses Not on filedocumented in this encounter Additional Health Concerns Assessment Noted Time PHQ-9 Depression Total Score: 3 06/03/19 24 3:02 PM EDT documented as of this encounter Care Teams Industrial Management Teacher Relationship Specialty Start Date End Date Asha Dodge MD [address] [place] [address] PCP - General Family Medicine 12/29/22 documented as of this encounter
--- OUTSIDE RECORDS SUMMARY | 2024-05-02 18:03 | XMS_ITS | Encounter Summary ---
Author Organization [employer] Address [address] [place] [address] Care Team Providers Care Machine Brush Maker Name Role Phone Asha Dodge MD Primary Care Provider [phone] Reason for Visit * Reason Onset Date Comments PT1 03/01/2024 Encounter Details Date Type Department Care Team ([facility] st Contact Info) Description 03/01/2024 Telephone [facility] [address] [place], [place] [phone] Asha Dodge MD [address] [place], [place] [phone] PT1 Social History Tobacco Use Types Packs/Day [...] * Telephone Encounter - Clare Douglass - 03/01/2024 3:03 PM EST Patient calling requesting PT1 Home Address verified: Y/N: Yes Provider name or facility name: [facility] Facility Address: [address] [place] [address] Escort needed: Y/N: No Do you have a wheelchair: Y/N: No If yes- Manual or electric: n/a Visits: 1 a month Pt scheduled for appointment on March 08. Kineseologist advise will send message high priority documented in this encounter Plan of Treatment Not on file documented as of this encounter Visit Diagnoses Not on filedocumented in this encounter Additional Health Concerns Assessment Noted Time PHQ-9 Depression Total Score: 3 06/03/19 24 3:02 PM EDT documented as of this encounter Care Teams Machine Brush Maker Relationship Specialty Start Date End Date Asha Dodge MD [address] [place] [id number] PCP - General Family Medicine 12/29/22 documented as of this encounter
--- OUTSIDE RECORDS SUMMARY | 2024-05-02 18:03 | XMS_ITS | Clinical Summary ---
Author Organization [employer] Address [address] [place] [address] Care Team Providers Care Digital Campaign Specialist Name Role Phone Asha Dodge MD Primary Care Provider [phone] Allergies Active Allergy Reactions Criticality Noted Date Comments Wound Dressings 03/05/2022 Beta Adrenergic Blockers Palpitations Low Side effect only/ dc'd Metronidazole Itching Low 03/05/2022 Fluorouracil Rash Low 04/08/2023 Wound Dressing Adhesive 06/18/2021 Other reaction(s): Unknown Medications polyethylene glycol, PEG, 3350 (Glycolax) 17 GM/SCOOP powderIndication s:Constipation, unspecified constipation type Take 17 g by mouth Once per day. 510 g 1 07/06/19 24 Active fluticasone (Flonase) 50 MCG/ACT nasal spray Administer 1-2 sprays into each nostril Once per day. Shake gently. Before first use, prime pump. After use, clean tip and replace cap. 16 g 2 07/22/19 24 Active loratadine (Claritin) 10 MG tablet Take 1 tablet (10 mg) by mouth Once per day. 30 tablet 11 07/22/19 24 Active albuterol (ProAir HFA) 108 (90 Base) MCG/ACT inhaler Inhale 2 puffs every 6 (six) hours if needed for wheezing or shortness of breath. 18 g 07/22/19 24 Active lidocaine (Xylocaine) 5 % ointment Apply topically if needed for mild pain (prior to phlebotomy). 50 g 11 09/05/19 24 Active aluminum chloride (Drysol) 20 % external solutionIndicati ons:Hyperhidrosi s of feet Apply topically at bedtime. 60 mL 12/09/19 24 025 Active gabapentin (Neurontin) 100 MG capsule take 1 capsule by mouth at bedtime as needed for sleep 02/28/20 Active docusate sodium (Colace) 100 MG capsuleIndicatio ns:Constipation, unspecified constipation type Take 1 capsule (100 mg) by mouth Once per day. 90 capsule 3 03/22/19 25 Active thiamine (Vitamin B-1) 100 MG tabletIndication s:Seborrheic dermatitis Take 1 tablet (100 mg) by mouth Once per day. 90 tablet 3 03/22/19 25 Active Magnesium Oxide -Mg Supplement 500 MG capsule TAKE 1 TABLET (30 MG) BY MOUTH ONCE PER DAY. 30 capsule 11 04/02/19 25 Active LORazepam (Ativan) 0.5 MG tabletIndication s:Anxiety Take 1 tablet (0.5 mg) by mouth if needed each day for anxiety for up to 10 days. 10 tablet 04/03/19 25 Active nystatin-triamci nolone (Mycolog II) ointment APPLY TO AFFECTED AREA TWICE A DAY 15 g 04/06/19 25 Active nystatin-triamci nolone (Mycolog II) ointment Apply topically 2 times daily. 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 Notes from outside records say that he is JAK2/CALR negative. He does have known kidney cyst which certainly can be cause of secondary erythrocytosis. If after cyst drainage (which he is getting at end of this month), hgb is still elevated >16.5, he can consider sleep study and/or pulmonary function tests. 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 Assessment & Plan (03/22/2024 11:48 AM EST): Continue annual monitoring of kidney function Family history of kidney disease in maternal gra ndmother 05/23/2023 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 Tinnitus 2, cerumen This is a 37-year-old male with history of tinnitus in bilateral ears with normal hearing thresholds checked in 2021. He reports last week he noted clogged ear on the right with pain along the right side. The tinnitus is bilateral and nonpulsatile however it is more noticeable on the right side. He reports that he sleeps with ear buds as he has loud neighbors. He was seen as an urgent care and noted to have cerumen and prescribed antibiotic otic drops. Since using them he has not noticed significant cerumen coming out of the right ear. He denies any recurrent ear infections, history of ear surgery, dizziness, family history of hearing loss. On exam he had cerumen obstructing the right side that was removed with suction utilizing microscope. There is mild irritation of the canal overall but no active infection or otorrhea. He had scant cerumen on the left that was nonobstructing that was also removed. He reported after cleaning that his tinnitus had improved. I do not think there is concern for a sudden hearing loss as the tinnitus did not improve and his hearing changes also improved after cleaning. He does have an audiogram scheduled in a week and a half so we can follow-up to obtain audiogram at that time. Any new or concerning ear symptoms he is more than happy to reach out to follow- up if there are concerns on his audiogram our life insurance sales can touch base with one of our providers or me whoever is in clinic that day. Hyperlipidemia 03/28/2023 Mucous retention cyst of maxillary sinus 024 03/25/2023 Overview (03/25/2023): Last Assessment & Plan: Is wondering if he can have a maxillary sinus retention cyst addressed. This was found on a head CT last summer done at [facility]. Is wondering if draining or excising would help him. I discussed that for this condition, his best option is to see one of amazing rhinologists. I indicated that I would request this CT imaging being sent to our center (via [facility]) to upload so that when he sees the monkey keeper, that would be available. Will also ask Aleksandra to schedule the visit in clinic after the imaging is here. Primary insomnia 03/22/2023 Assessment & Plan (03/22/2024 11:51 AM EST): Saw [facility] sleep med b2b sales consultant Awaiting sleep study Neither sleep doctor, nor I can order melatonin levels, I am not sure how this would assist or change treatment either Assessment & Plan (03/22/2023 12:51 PM EST): Its probably related to anxiety, exacerbated by new onset HTN? We discussed re fu with therapist At [facility] For rx anxiety, sleep meds, specially since he has failed or had side effects from many of them including hydroxyzine, mirtazapine, trazodone, melatonin, doxepin. He asked to be rx with Diazepam, I explained that it is not clinically indicated to rx at this time. Rx gabapentin 100-300mg at bedtime. FU with MH provider and PC if needed. Anxiety 03/22/2023 Assessment & Plan (03/28/2023 7:27 AM EST): Continue gabapentin trial, need 4-6 weeks to assess efficacy Sparing use of Ativan 1mg per ED physician Assessment & Plan (03/22/2023 1:05 PM EST): He seems to have underlying HI, and he may be having anxiety attacks at night. I told him to fu with psychotherapist at [facility] for psychopharmacology evaluation. He declined to be started on SSRIIs. I explained that diazepam is not clinically indicated and wont be for panic attacks. I rx gabapentin as above for insomnia which can be titrated up by his PCP if tolerated. I told him to go to ED if he develops anxiety attacks. FU with PCP next week as Previously scheduled. Gastroesophageal reflux disease 02/04/2023 Retention cyst of paranasal sinus 11/02/2022 Assessment & Plan (11/02/2022 4:12 PM EDT): Will refer to ENT for further evaluation. Seborrheic dermatitis 11/02/2022 Left arm numbness 09/21/2022 01/30/2023 Assessment & Plan (12/16/2023 11:25 AM EDT): Will followup after this EMG is obtained and labs result Biceps tendinitis on right 07/16/2022 Overview (01/30/2023): Last Assessment & Plan: Patient with R bicep pain and positive yergarson test and positive speed test upon examination. Will administer toradol injection and send diclofenac. Assessment & Plan (07/16/2022 3:21 PM EDT): Patient with R bicep pain and positive yergarson test and positive speed test upon examination. Will administer toradol injection and send diclofenac. Essential (primary) hypertension 06/28/2022 01/30/2023 Assessment & Plan (03/22/2024 11:48 AM EST): Continue to monitor at home Controlled <140/90 generally at home Consider biofeedback for increased self management of anxiety/autonomic storm symptoms Assessment & Plan (03/22/2023 1:06 PM EST): New onset? He has been on meds (bblockers) in the past but didn't tolerate them. Start amlodipine 2.5mg Daily and fu with PCP In 1w. I d/w him re mechanism of action of the med, side effects and safety profile. He agreed with POC. I advised him AGAINST checking BP constantly with his watch monitor, rather to do it three times per week or once/day maximum. FU with endocrinology for fu on thyroid condition and with cardiology re secondary HTN if concerned. Left-sided low back pain without sciatica 2022 Chronic left shoulder pain 03/05/2022 Assessment & Plan (03/05/2022 9:58 AM EST): Acute on chronic, never went to ortho, does have some pain with abduction and external rotation. Patient asked me to review MRI sent in June 2021, does have some left side disc protrusion but no stenosis or nerve compression. Bilateral renal cysts 03/05/2022 Assessment & Plan (03/22/2024 11:49 AM EST): May have kidney cysts drained at [facility] to improve his secondary polycythemia vera Assessment & Plan (03/05/2022 10:00 AM EST): Requested nephrology referral to [facility], encouraged patient to request these referrals to his PCP Elevated blood pressure reading 02/09/2022 Assessment & Plan (03/28/2023 7:25 AM EST): Continue to monitor at home Defer BP medications for now due to potential for hypotension Often related to inappropriate tachycardia Underlying cause anxiety? Assessment & Plan (03/05/2022 10:01 AM EST): Elevated, not taking Bp meds given side effect. Encourage to monitor his BP at home and bring readings to his PCP on there next schedule appt in 2 weeks. Mild intermittent asthma 02/09/2022 Paresthesia 02/09/2022 Neck pain 02/09/2022 Overview (03/05/2022): Last Assessment & Plan: Arben Emanuel is a 36 year old male here today with dysphagia. He is here by referral from Dr. Cardona. Patient has a history of hemochromatosis and reports he is coming in for concern of abnormalities in his thyroid labs. On 12/18 had labs at an outside facility ([facility]) with TSH 8.9 Vit D 0.04 and placed him on Vitamin D and TSH changed to 2.91 and Vit D remained the same. Thyroid US was normal aside from a right sided nodule that was there for the past 2 years. He went to an strategy intern who said he was unsure of reason for lab work change and referred him to ENT. Patient reports that for the past year has been having solid food stuck in his throat and requiring occasional coughing it up. This improved since he was started on vit D. Endorses heart burn for which he is on PRN Omeprazole. He also reports sharp right sided neck pain extending down the length of right SCM. Mostly hurt when moving neck. Rest reduces the pain. Did not try anything for it. Never smoker. No alcohol. Drinks 10 cups of water and zero cups of coffee per day. Exam of head and neck including in-clinic ultrasound confirmed the presence of a thyroid nodule on the right which may be contributing to his neck pain symptoms. I additionally found strap muscle tightness bilaterally on exam and recommend that the patient begin therapy to work on exercises to address this issue. Patient also expressed interest in referral to Endocrinology for further care of his thyroid nodule. I placed a referral to Dr Vogel and patient will schedule appointments accordingly. PLAN --follow-up with [facility] Endo --Therapy session for neck pain -- Call or return to clinic prn if these symptoms worsen or fail to improve as anticipated. Resolved Problems Problem Noted Date Diagnosed Date Resolved Date Anxiety and depression 02/22/202403/22 Alport syndrome 02/22/2024 03/22/2024 Overview (03/22/2024): COL4A3 gene (c.1450G>A, p.[id number]) for Alport syndrome. Left facial numbness 11/02/2022 025 Assessment & Plan (11/02/2022 4:13 PM EDT): CN II-XII normal with gross examination. Intact sensation on CN V-II & intact taste on hx. Unknown precipitant, denies any trauma. Did have acute CT of the head and also had labs done. Reviewed labs, he did have elevated hemoglobin but does have a hx of hemochromatosis, reports he has not had phlebotomy since May. Reports he has had difficulties getting to [facility] to get labs, will check his labs. Abdominal pain 03/05/2022 03/17/2022 Assessment & Plan (03/05/2022 10:00 AM EST): Reports bloating and gas, feels left sided gas that radiates to his left shoulder, if we could have gas and diaphragmatic irritation, benign abd exam. He requested to be sent to [facility] to GI, referral placed Dizziness 02/09/2022 03/22/2024 Mood disorder 07/26/2018 01/30/2023 Encounters Date Type Department Care Team Description 05/01/[address] [facility] [address] [place] [phone] Asha Dodge MD Durable Medical Equipment (DME Blood Pressure Monitor) 04/19/2024 Patient Outreach [address] [address] Asha Dodge MD Care Coordination (CHW outreach for SDOH PT-1 and food needs-referral completed /) 04/19/[address] [address] Asha Dodge MD PT1 04/11/[address] [address] Asha Dodge MD Referral 04/05/[address] [address] Asha Dodge MD 04/04/2024 Patient Outreach [address] [address] Asha Dodge MD Care Coordination (CHW outreach for SDOH PT-1 and food needs-LVM ) 03/29/[address] [address] Asha Dodge MD Nurse Triage 03/28/2024 3:15 PM EST Office Visit [address] [address] Asha Dodge MD 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) (Primary Dx); Thyroid nodule; Anxiety 03/28/[address] [address] Asha Dodge MD 03/28/2024 Travel 03/28/2024 Telephone [facility] [address] [place] [address] Rosana Landeros MD Results 03/28/2024 Patient Outreach [address] [address] Asha Dodge MD Care Coordination (CHW outreach for SDOH PT_1 -referral completed /) 03/27/2024 Orders Only [facility] [address] [place] [address] Rosana Landeros MD Right thyroid nodule (Primary Dx) 03/27/[address] [address] Asha Dodge MD PT1 03/16/2024 11:30 AM EST Office Visit [address] [address] Asha Dodge MD Essential (primary) hypertension (Primary Dx); Dietary counseling; Exercise counseling; Overweight; Polycythemia vera (CMS/HCC); 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; Mild intermittent 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; Bilateral renal cysts; 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); Primary insomnia; Seborrheic dermatitis; Constipation, unspecified constipation type 03/16/2024 Travel 03/16/2024 Patient Outreach [address] [address] Asha Dodge MD Pre-visit Planning ((SDOH screening positive tobacco screening negative) ) 03/15/2024 Patient Outreach [address] [address] Asha Dodge MD Care Coordination (CHW outreach for SDOH PT-1 and food needs-referral completed /) 03/15/[address] [address] Asha Dodge MD PT-1 03/09/2024 Travel 03/02/2024 Patient Outreach [address] [address] Asha Dodge MD Care Coordination (CHW outreach for SDOH PT-1 - LVM ) 03/01/[address] [address] Asha Dodge MD PT1 02/28/[address] [address] Asha Dodge MD ER Follow-up 02/28/2024 Orders Only GENERIC EXTERNAL DATA DEPARTMENT Provider, Generic External Data 02/27/2024 Orders Only GENERIC EXTERNAL DATA DEPARTMENT Provider, Generic External Data 02/20/2024 6:20 PM EST Office Visit [facility] [address] [address] Rosana Landeros MD Palpitations (Primary Dx); Other insomnia; Thyromegaly 02/20/2024 Travel 02/20/[address] [facility] [address] [place] [address] sAha Dodge MD 02/09/[address] [facility] [address] [place], [place] [phone] Asha Dodge MD Appointment Request from Last 3 Months Immunizations Name Administration Dates Next Due HPV 9-Valent 11/17/2021 Influenza Injectable Quadriv alant Preservative Free IIV4 MDCK 12/24/2016 Influenza injectable quadriv alent IIV4 with preservative 03/05/2019 Influenza injectable quadrivalent preservative f ree 01/16/2021 Influenza, seasonal, injectable, preservative fr ee 11/30/2023 Tdap 12/19/2022,06/14/2012 Social History Tobacco Use Types Packs/Day Years Used Date Smoking Tobacco: Never Passive Smoke Exposure: Never Smokeless Tobacco: Never Tobacco Cessation:Counseling Given: Not Answered Alcohol Use Standard Drinks/Week Comments Never 0 (1 standard drink = 0.6 oz pur e alcohol) Depression Answer Date Recorded Patient Health Questionnaire-9 Score 3 06/03/2023 Patient Health Questionnaire-9 Score 3 06/03/2023 Last PHQ-9: Questionnaire Data Not on file 0 06/03/2023 Housing Stability Answer Date Recorded What is your housing situation today? I have brianna jarrod 03/16/[address] you li [...] not to disclose 2021 10:22 AM EDT Last Filed Vital Signs Vital Sign Reading Time Taken Comments Blood Pressure 150/99 03/28/2024 3:37 PM EST Pulse 76 03/28/2024 3:37 PM EST Temperature 37.1 ??C (98.8 ??F) 03/28/2024 3:37 PM ES T Respiratory Rate 18 03/28/2024 3:37 PM EST Oxygen Saturation 98% 03/28/2024 3:37 PM EST Inhaled Oxygen Concentration - - Weight 86.2 kg (190 lb) 03/28/2024 3:37 PM EST Height 180.3 cm (5' 11 ) 03/28/2024 3:37 PM EST Body Mass Index 26.5 03/28/2024 3:37 PM EST Plan of Treatment Health Maintenance Due Date Last Done Comments Alcohol/Substance Use Screening 1997 Family Planning (PISQ) 2000 Hepatitis B Vaccines (1 of 3 - 19+ 3-dose series) 2004 Pneumococcal Vaccine: Pediatrics (0 to 5 Years) and At-Risk Patients (6 to 49) Years) (1 of 2 - PCV) 2004 HPV Vaccines (2 - 3-dose SCDM series) 12/15/2021 11/17/2021 COVID-19 Vaccine ( season) 2023 11/13/2021, 03/16/2021, 07/15/2020, Additional history exists Depression Screening 06/02/2024 06/03/2023, 06/03/19 24 SDOH Screening 03/16/2025 03/16/2024 Tobacco Screening 03/28/2025 03/28/2024 Lipid Panel 03/30/2028 03/30/2023, 12/07, 10/29/2021, Additional history exists DTaP/Tdap/Td Vaccines (3 - Td or Tdap) 12/19/2032 12/19/2022, 06/14/2012 Zoster Vaccines (1 of 2) 10/18/2035 RSV Patients and Patients Aged 60 years or older (1 - 1-dose 75+ series) 2060 HIV Screening Completed 07/20/2023 Hepatitis C Screening Completed 07/20/2023, 023 Influenza Vaccine Completed 11/30/2023, , 03/05/2019, Additional history exists HIB Vaccines Aged Out No longer eligi ble based on patient's age to complete this topic Hepatitis A Vaccines Aged Out No long er eligible based on patient's age to complete this topic IPV Vaccines Aged Out No longer eligi ble based on patient's age to complete this topic Meningococcal Vaccine Aged Out No leanna deyanira eligible based on patient's age to complete this topic RSV under 20 months Aged Out No longe r eligible based on patient's age to complete this topic Rotavirus Vaccines Aged Out No longer eligible based on patient's age to complete this topic Procedures Procedure Name Priority Date/Time Associated Diagnosis Comments D DIMER HIGH SENSITIVITY Routine 02/28/2024 1:03 AM EST HIGH SENSITIVITY TROPONIN I Routine 02/27/2024 11:47 PM EST BASIC METABOLIC PANEL Routine 02/27/2024 11:47 PM EST CBC WITH AUTO DIFFERENTIAL Routine 02/27/2024 11:47 PM EST US THYROID Routine 02/24/2024 2:09 PM EST Thyromegaly MAGNESIUM Routine 02/24/2024 2:05 PM EST Palpitations BASIC METABOLIC PANEL Routine 02/24/2024 2:05 PM EST Palpitations CBC WITH AUTO DIFFERENTIAL Routine 02/24/2024 2:05 PM EST Palpitations TSH W/REFLEX TO FT4 Routine 02/24/2024 2 :05 PM EST Palpitations ECG 12-LEAD Routine 02/20/2024 6:59 PM EST Palpitations HEPATITIS C AB W/REFL TO HCV RNA, QN, PCR Routine 07/20/2023 3:54 PM EDT Routine screening for STI (sexually transmitted infection) HIV 1/2 ANTIGEN/ANTIBODY, FOURTH GENERATION W/RFL Routine 07/20/2023 3:54 PM EDT Routine screening for STI (sexually transmitted infection) LIPID PANEL, STANDARD Routine 03/30/2023 9:57 AM EST from Last 3 Months or Most Recently Relevant to Health Maintenance Results * D Dimer High Sensitivity (02/28/2024 1:03 AM EST) [facility] D Dimer High Sensitivity 218 NG/ML [facility] Comment:D-DIMER HS REFERENCE RANGENote: Our assay reports D-Dimer Units (D- DU).The cut-off value for venous thromboembolic (VTE) disease is230 ng/mL. This value has a very high negative predictivevalue when the patient has a low to moderate clinicalprobability of VTE.The upper limit of normal is 243 ng/mL. 02/28/2024 1:03 AM EST 02/28/2024 1:06 AM EST us Generic External Data Provider LAB BLOOD ORDERAB LES Final Result [facility] [address] [place] [phone] * High Sensitivity Troponin I (02/27/2024 11:47 PM EST) [facility] TROPONIN I HIGH SENSITIVITY <2.7 <3.5 - 35.0 ng/L [facility] Comment:The Baron high sens itivity Troponin-I results should beused in conjunction with other diagnostic information suchas ECG, clinical observations and information, and patientsymptoms to aid in the diagnosis of ME. 02/27/2024 11:4 7 PM EST 02/27/2024 11:51 PM EST us Generic External Data Provider LAB BLOOD ORDERAB LES Final Result [facility] [address] [place] [phone] * (ABNORMAL) CBC auto differential (02/27/2024 11:47 PM EST) Only the most recent of2 resultswithin the time period is included. White Blood Count 8.4 4.8 - 10.8 X10*3/uL [facility] Red Blood Count 5.50 4.60 - 5.80 X10*6/uL [facility] Hemoglobin 17.9 14.0 - 18.0 g/dl [facility] Hematocrit 49.0 42.0 - 52.0 % [facility] Mean Corpuscular Volume 89.1 80.0 - 98.0 fL [facility] Mean Corpuscular Hemoglobin 32.5 27.0 - 33.0 pg [facility] Mean Corpuscular HGB Conc 36.5(H) 31.0 - 36.0 g/dl [facility] Red Cell Distribution Width 11.6 11.0 - 16.0 % [facility] Platelet Count 211 160 - 400 X10*3/uL [facility] Mean Platelet Volume 9.5 9.4 - 12.4 fL [facility] Neutrophils Percent Auto 66.3 45 - 73 % [facility] Imm Gran Pct Auto 0.2 0.0 - 0.4 % [facility] Lymphocytes Percent Auto 23.2 20 - 40 % [facility] Monocytes Percent Auto 8.1 2 - 11 % [facility] Eosinophils Percent Auto 1.6 0 - 4 % [facility] Basophils Percent Auto 0.6 0 - 2 % [facility] NRBC Pct Auto 0.0 0.0 - 0.2 /100WBC [facility] Neutrophils Absolute Auto 5.6 2.0 - 8.3 x10*3/uL [facility] Imm Gran Abs Auto 0.02 0.00 - 0.03 X10*3/uL [facility] Lymphocytes Absolute Auto 1.9 1.2 - 4.9 X10*3/uL [facility] Monocytes Absolute Auto 0.7 0.1 - 1.2 X10*3/uL [facility] Eosinophils Absolute Auto 0.1 0.0 - 0.4 X10*3/uL [facility] Basophils Absolute Auto 0.1 0.0 - 0.2 X10*3/uL [facility] NRBC Abs Auto 0.000 0.0 - 0.012 X10*3/uL [facility] 02/27/2024 11:4 7 PM EST 02/27/2024 11:51 PM EST us Generic External Data Provider LAB BLOOD ORDERAB LES Final Result [facility] [address] [place] [phone] * (ABNORMAL) Basic Metabolic Panel (02/27/2024 11:47 PM EST) Only the most recent of2 resultswithin the time period is included. Sodium 139 135 - 145 mmol/L [facility] Potassium 3.6 3.3 - 5.1 mmol/L [facility] Comment:Slight Hemolysis.Int erpret result with caution. Chloride 108 96 - 108 mmol/L [facility] Carbon Dioxide 22 22 - 29 mmol/L [facility] Anion Gap 13 12 - 20 [facility] Urea Nitrogen (BUN) 12 9 - 16 mg/dL [facility] Creatinine, Serum 0.85 0.5 - 1.4 mg/dL [facility] Creatinine Clr Calc Pharmacy 125.5 [facility] Comment:eGFR (calculated fro m the MDRD study equation) and eCrCl(calculated from the Cockcroft-Gault equation) are based ondifferent parameters and may not yield comparable results.If eCrCl result is absurd, please check patient'sheight/weight. Estimated Glomerular Filt Rate >60 [facility] Comment:Chronic Kidney Disea se: Estimated GFR < 60 mL/min/1.23r7Xzmiwk Kidney Disease: Estimated GFR < 15 mL/min/1.73m2 Glucose 122(H) 60 - 115 mg/dL [facility] Calcium 9.4 8.4 - 10.2 mg/dL [facility] 02/27/2024 11:4 7 PM EST 02/27/2024 11:51 PM EST us Generic External Data Provider LAB BLOOD ORDERAB LES Final Result Performing Organization Address City/State/[facility] Co de Phone Number [facility] [address] [place] [address] [phone] * US Thyroid (02/24/2024 2:09 PM EST) Anatomical Region Laterality Modality Head, Neck Ultrasound 02/24/2024 2:09 PM EST Narrative 03/26/2024 6:23 AM EST ? [facility] ?[address] ? [place] [address] ? Ultrasound Report ? Signed ? Patient: Adelfo,Arben ?MR#: [id number] ?? [id number] ? : 1985 ?Acct:[id number] ? Age/Sex: 38 / M ?ADM Date: 02/24/24 ? Loc: HO.HMGCX ? Attending Dr: Rosana Landeros MD ? Ordering Physician: Rosana Landeros MD ?? Date of Service: 02/24/24 ?? Procedure(s): US thyroid ?? Accession Number(s): [id number] ? cc: Rosana Landeros MD; Asha Dodge ? EXAMINATION: ?? US THYROID ? CLINICAL INFORMATION: ?? Enlargement of the right thyroid lobe. ? COMPARISON: ?? Ultrasound thyroid 12/02/2021 and 06/17/2021. ? TECHNIQUE: ?? Linear transducer grayscale and color Doppler examination with ?? attention to the region of the thyroid. ? FINDINGS: ? SIZE: Measurements of the thyroid lobes and nodules are given in ?? sagittal, anteroposterior and transverse dimensions respectively. ? Right Thyroid Lobe: 4.8 x 1.7 x 1.7 cm, volume 7.3 mL. Previously 4.7 x ?? 1.5 x 1.6 cm, volume 5.9 mL. ?? Parenchyma: The gland echotexture is homogeneous. Thyroid vascularity ?? is normal. ? Left Thyroid Lobe: 5.6 x 0.8 x 1.5 cm, volume 3.5 mL. Previously 5.7 x ?? 0.8 x 1.5 cm, volume 3.6 mL. ?? Parenchyma: The gland echotexture is homogeneous. Thyroid vascularity ?? is normal. ? Isthmus: 0.2 cm in maximum AP dimension. Previously 0.3 cm. ? Estimated total number of nodules greater than or equal to 1 cm: 1. ?? Services Mgr nodules are described as follows: ? 1. ??Location: Right medial. ? Size: 2.6 x 0.9 x 2.1 cm, volume 2.39 mL. ? Previously: 2.7 x 0.8 x 2.0 cm, volume 2.40 mL. ? Nodule characteristics: ? Composition: Solid (2). ? Echogenicity: Hypoechoic (2). ? Shape: Not taller than wide (0). ? Margins: Smooth (0). ? Echogenic Foci: None (0). ? ACR TI-RADS total points: 4 Previous: 4 ? ACR TI-RADS category: 4 Previous: 4 ? Significant change in size (>/= 20% in 2 dimensions and minimal ?? increase of 2 mm or 50% or greater increase in volume): No ?? Change in features: No ?? Change in ACR TI-RADS risk category: No ? 2. ??Location: Right lower isthmus. ? Size: 0.6 x 0.4 x 0.6 cm, volume 0.07 mL. ? Previously: 0.6 x 0.4 x 0.4 cm, volume 0.05 mL. ? Nodule characteristics: ? Composition: Spongiform (0). ? ACR TI-RADS total points: 0 Previous: 0 ? ACR TI-RADS category: 1 Previous: 1 ? Significant change in size (>/= 20% in 2 dimensions and minimal ?? increase of 2 mm or 50% or greater increase in volume): No ?? Change in features: No ?? Change in ACR TI-RADS risk category: No ? NODES: No lymphadenopathy is seen in the tissue surrounding the ?? thyroid gland. ? US/US thyroid ?? IMPRESSION: ?? 2.6 cm RIGHT medial TR 4 thyroid nodule is stable in size. Correlation ?? with prior biopsy results recommended to determine further management. ? ACR TI-RADS RECOMMENDATION REFERENCE: ?? Ultrasound-guided fine-needle aspiration, follow up ultrasound, no ?? further followup. ? * TR1 (0 point) and TR2 (2 points): No FNA or followup ? * TR3 (3 points): FNA if more than or equal to 2.5 cm in maximum ?? dimension, follow up ultrasound in 1, 3 and 5 years if 1.5 to 2.4 cm in ?? maximum dimension. ? * TR4 (4-6 points): FNA if more than or equal to 1.5 cm in maximum ?? dimension, follow up ultrasound in 1, 2, 3 and 5 years if 1 to 1.4 cm ?? in maximum dimension. ? * TR5 (more than or equal to 7 points): FNA if more than or equal to 1 ?? cm in maximum dimension, follow up ultrasound every year for 5 years if ?? 0.5 to 0.9 cm in maximum dimension. ? * TR3, TR4 or TR5 nodules that are below the size threshold for follow ?? up receive no followup. ? Electronically signed by: ??Maxine Kaufman MD ??03/26/2024 06:19 AM EST ? Dictated By: ?Maxine Kaufman MD ? Signed By: ?<Electronically signed by Maxine Kaufman MD in OV> ? 03/26/24618 ? DD/ 1409 ? TD/TT: 02/24/24 1415 ? Custodial Worker: ? Procedure Note Donotuseinterpreter, Image - 03/26/2024 [facility] [address] [place] [address] [place] [address] Ultrasound Report Signed Patient: Aung EmanuelR#: [id number] : 1985Acct:[id number] Age/Sex: 38 / MADM Date: 02/24/24 Loc: HO.HMGCX Attending Dr: Rosana Landeros MD Ordering Physician: Rosana Landeros MD Date of Service: 02/24/24 Procedure(s): US thyroid Accession Number(s): [id number] cc: Rosana Landeros MD; Asha Dodge EXAMINATION: US THYROID CLINICAL INFORMATION: Enlargement of the right thyroid lobe. COMPARISON: Ultrasound thyroid 12/02/2021 and 06/17/2021. TECHNIQUE: Linear transducer grayscale and color Doppler examination with attention to the region of the thyroid. FINDINGS: SIZE: Measurements of the thyroid lobes and nodules are given in sagittal, anteroposterior and transverse dimensions respectively. Right Thyroid Lobe: 4.8 x 1.7 x 1.7 cm, volume 7.3 mL. Previously 4.7 x 1.5 x 1.6 cm, volume 5.9 mL. Parenchyma: The gland echotexture is homogeneous. Thyroid vascularity is normal. Left Thyroid Lobe: 5.6 x 0.8 x 1.5 cm, volume 3.5 mL. Previously 5.7 x 0.8 x 1.5 cm, volume 3.6 mL. Parenchyma: The gland echotexture is homogeneous. Thyroid vascularity is normal. Isthmus: 0.2 cm in maximum AP dimension. Previously 0.3 cm. Estimated total number of nodules greater than or equal to 1 cm: 1. Services Mgr nodules are described as follows: 1. Location: Right medial. Size: 2.6 x 0.9 x 2.1 cm, volume 2.39 mL. Previously: 2.7 x 0.8 x 2.0 cm, volume 2.40 mL. Nodule characteristics: Composition: Solid (2). Echogenicity: Hypoechoic (2). Shape: Not taller than wide (0). Margins: Smooth (0). Echogenic Foci: None (0). ACR TI-RADS total points: 4 Previous: 4 ACR TI-RADS category: 4 Previous: 4 Significant change in size (>/= 20% in 2 dimensions and minimal increase of 2 mm or 50% or greater increase in volume): No Change in features: No Change in ACR TI-RADS risk category: No 2. Location: Right lower isthmus. Size: 0.6 x 0.4 x 0.6 cm, volume 0.07 mL. Previously: 0.6 x 0.4 x 0.4 cm, volume 0.05 mL. Nodule characteristics: Composition: Spongiform (0). ACR TI-RADS total points: 0 Previous: 0 ACR TI-RADS category: 1 Previous: 1 Significant change in size (>/= 20% in 2 dimensions and minimal increase of 2 mm or 50% or greater increase in volume): No Change in features: No Change in ACR TI-RADS risk category: No NODES: No lymphadenopathy is seen in the tissue surrounding the thyroid gland. US/US thyroid IMPRESSION: 2.6 cm RIGHT medial TR 4 thyroid nodule is stable in size. Correlation with prior biopsy results recommended to determine further management. ACR TI-RADS RECOMMENDATION REFERENCE: Ultrasound-guided fine-needle aspiration, follow up ultrasound, no further followup. * TR1 (0 point) and TR2 (2 points): No FNA or followup * TR3 (3 points): FNA if more than or equal to 2.5 cm in maximum dimension, follow up ultrasound in 1, 3 and 5 years if 1.5 to 2.4 cm in maximum dimension. * TR4 (4-6 points): FNA if more than or equal to 1.5 cm in maximum dimension, follow up ultrasound in 1, 2, 3 and 5 years if 1 to 1.4 cm in maximum dimension. * TR5 (more than or equal to 7 points): FNA if more than or equal to 1 cm in maximum dimension, follow up ultrasound every year for 5 years if 0.5 to 0.9 cm in maximum dimension. * TR3, TR4 or TR5 nodules that are below the size threshold for follow up receive no followup. Electronically signed by: Maxine Kaufman MD 03/26/2024 06:19 AM EST RP Dictated By: Maxine Kaufman MD Signed By: <Electronically signed by Maxine Kaufman MD in OV> 03/26/24 0619 DD/ 1409 TD/TT: 02/24/24 1415 Custodial Worker: us Rosana Landeros MD IMG US PROCEDURES Final Res ult * TSH W/Reflex to FT4 (02/24/2024 2:05 PM EST) TSH reflex Free T4 2.97 0.32 - 4.0 uIU/mL [facility] Blood Venous blood specimen / Unknown 02/24/2024 2:05 PM EST 02/24/2024 4:07 PM EST us Rosana Landeros MD LAB BLOOD ORDERABLES Final Result Performing Organization Address City/[facility]/ZIP Co de Phone Number [facility] [address] [place] [phone] * Magnesium (02/24/2024 2:05 PM EST) Magnesium 2.3 1.6 - 2.6 mg/dL [facility] Blood Venous blood specimen / Unknown 02/24/2024 2:05 PM EST 02/24/2024 4:07 PM EST us Rosana Landeros MD LAB BLOOD ORDERABLES Final Result Performing Organization Address [facility]/ZIP Co de Phone Number [facility] [address] [place] [phone] * ECG 12 lead (02/20/2024 6:59 PM EST) Narrative Rosana Landeros MD - 02/20/2024 6:59 PM EST HR 73 bpm. NSR. Normal axis: 76 degrees. No sigh of LAE, NICK. No sign of Ventricular ??hypertrophy. No ST elevation or depression. us Rosana Landeros MD ECG ORDERABLES Final Resul t * Hepatitis C Antibody with Reflex to HCV, RNA, Quantitative, Real-Time PCR (07/20/2023 3:54 PM EDT) Hepatitis C Antibody Nonreactive Nonreactive [facility] Comment:Antibodies to HCV no t detected; does not exclude early acuteHCV infection. Blood Venous blood specimen / Unknown 07/20/2023 3:54 PM EDT 07/20/2023 5:41 PM EDT us Asha Dodge MD LAB BLOOD ORDERABLES Final Res ult [facility] [address] [place] [phone] * HIV-1/2 Antigen and Antibodies, Fourth Generation, with Reflexes (07/20/2023 3:54 PM EDT) Pathologist [facility] HIV AB/AG Nonreactive Nonreactive [facility] Comment:HIV-1 p24 Ag and/or HIV-1/HIV-2 Ab not detected.A test result that is nonreactive does not exclude thepossibility of exposure to or infection with HIV-1 and/orHIV-2. Nonreactive results in this assay for individualswith prior exposure to HIV-1 and/or HIV-2 may be due toantigen and antibody levels that are below the limit ofdetection of this assay.The [employer] HIV Ag/Ab Combo assay result andsupplemental assay results should be interpreted inconjunction with the patient's clinical presentation,history and other laboratory results. If the results areinconsistent with clinical evidence, additional testing issuggested to confirm the result. Blood Venous blood specimen / Unknown 07/20/2023 3:54 PM EDT 07/20/2023 5:41 PM EDT us Asha Dodge MD LAB BLOOD ORDERABLES Final Res ult Performing Organization Address [facility] Co de Phone Number [facility] [address] [place] [phone] * (ABNORMAL) Lipid Panel, Standard (03/30/2023 9:57 AM EST) Triglycerides 78 <150 mg/dL [facility] Comment:Desirable Triglyceri de: less than 150 mg/dLBorderline High Triglyceride 150-199 mg/dLHigh Triglyceride: 200-499 mg/dLVery High Triglyceride: greater than or equal to 5OO mg/dL Cholesterol 168 <200 mg/dL [facility] Comment:Desirable Cholestero l: less than 200 mg/dLBorderline High Cholesterol: 200-239 mg/dLHigh Cholesterol: greater than 239 mg/dL LDL Cholesterol Calculated 118(H) <100 mg/dL [facility] Comment:Desirable LDL: less than 100 mg/dLNear Optimal/Above Optimal LDL: 110- 129 mg/dLBorderline High LDL: 130-159 mg/dLHigh LDL: 160-189 mg/dLVery High LDL: greater than or equal to 190 mg/dL HDL Cholesterol 35(L) >40 mg/dL [facility] Comment:Desirable HDL: great er than 40 mg/dL Note: This HDL assay may give artificially low results in patients with liver disease. 03/30/2023 9:57 AM EST 03/30/2023 1:35 PM EST us Generic External Data Provider LAB BLOOD ORDERAB LES Final Result Performing Organization Address [facility]/ZIP Co de Phone Number [facility] [address] [place] [phone] from Last 3 Months or Most Recently Relevant to Health Maintenance Insurance [facility] C3 Care Teams Digital Campaign Specialist Relationship Specialty Start Date End Date Asha Dodge MD [address] [place] [phone] PCP - General Family Medicine 12/29/22
--- OUTSIDE RECORDS SUMMARY | 2024-05-02 18:03 | XMS_ITS | Encounter Summary ---
Author Organization [employer] Address 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) Expected: 08/31/2023 (Approximate), Expires: 08/30/2024 documented as of this encounter Procedures Procedure Name Priority Date/Time Associated Diagnosis Comments IRON AND TOTAL IRON BINDING CAPACITY Routine 09/20/2023 3:49 PM EDT 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) documented in this encounter Results * (ABNORMAL) Iron And Total Iron Binding Capacity (09/20/2023 3:49 PM EDT) Iron 271(H) 45 - 160 mcg/dL [facility] Total Iron Binding Capacity 296 228 - 428 mcg/dL [facility] Percent Iron Saturation 92(H) 15 - 50 % [facility] Unsaturated Iron Binding <25 ug/dL [facility] Blood Venous blood specimen / Unknown 09/20/2023 3:49 PM EDT 09/20/2023 5:20 PM EDT us Asha Dodge MD LAB BLOOD ORDERABLES Final Res ult [facility] [address] [place] [phone] documented in this encounter Visit Diagnoses Diagnosis 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
--- OUTSIDE RECORDS SUMMARY | 2024-05-02 18:03 | XMS_ITS | Encounter Summary ---
Author Organization [employer] Address [address] [place] [address] Care Team Providers Care Spool Winder Name Role Phone Asha Dodge MD Primary Care Provider [phone] Reason for Referral * Consultation (Routine) - Canceled Specialty Diagnoses / Procedures Referred By Contac t Referred To Contact Orthopaedic Surgery Diagnoses Left hip pain Asha Dodge MD [address] [place] [address] Phone: tel: fax: [facility], Sports Medicine & Surgery (Ambulatory Center) [address] [place] [address] Phone: tel: fax: Referral ID Status Reason Start Date Expiration Date Visits Requested Visits Authorized [id number] Canceled Specialty Services Required 11/09/2023 11/08/2024 1 0 Encounter Details Date Type Department Care Team (Late st Contact Info) Description 11/09/2023 Orders Only [facility] MEDICINE [address] [place] [address] [phone] Asha Dodge MD [address] [place] [address] [phone] Left hip pain (Primary Dx) Social History Tobacco Use Types [...] of this encounter Plan of Treatment Scheduled Referrals Name Type Priority Associated Diagnoses Order Schedule Referral to Orthopaedic Surgery Outpatient Referral Routine Left hip pain Expected: 11/09/2023 (Approximate), Expires: 11/08/2024 documented as of this encounter Visit Diagnoses Diagnosis Left hip pain- Primary Pain in joint, pelvic region and thigh documented in this encounter Additional Health Concerns Assessment Noted Time PHQ-9 Depression Total Score: 3 06/03/19 24 3:02 PM EDT documented as of this encounter Care Teams Spool Winder Relationship Specialty Start Date End Date Asha Dodge MD [address] [place] [phone] PCP - General Family Medicine 12/29/22 documented as of this encounter
--- OUTSIDE RECORDS SUMMARY | 2024-05-02 18:03 | XMS_ITS | Encounter Summary ---
Author Organization [employer] Address [address] [place] [address] Care Team Providers Care Centrifugal Supervisor Name Role Phone Asha Dodge MD Primary Care Provider [phone] Reason for Visit * Reason Onset Date Comments PT-1 09/05/2023 Encounter Details Date Type Department Care Team ([facility] st Contact Info) Description 09/05/2023 Telephone [facility] [address] [place], [place] [phone] Asha Dodge MD [address] [place], [place] [phone] PT-1 Social History Tobacco Use Types Packs/Day [...] encounter Miscellaneous Notes * Telephone Encounter - Toya Keyes - 09/05/2023 4:27 PM EDT Patient calling requesting PT1 Home Address verified: Y/N: Yes Provider name or facility name: [facility] Address: [address] [place] [address] Escort needed: Y/N: No Do you have a wheelchair: Y/N: No If yes- Manual or electric: no Visits: 2x a month documented in this encounter Plan of Treatment Not on file documented as of this encounter Visit Diagnoses Not on filedocumented in this encounter Additional Health Concerns Assessment Noted Time PHQ-9 Depression Total Score: 3 06/03/19 24 3:02 PM EDT documented as of this encounter Care Teams Centrifugal Supervisor Relationship Specialty Start Date End Date Asha Dodge MD [address] [place] [phone] PCP - General Family Medicine 12/29/22 documented as of this encounter
--- OUTSIDE RECORDS SUMMARY | 2024-05-02 18:03 | XMS_ITS | Patient Health Record ---
Author Organization [facility] Address [address] [place], [place] [phone] Care Team Providers Care Navy Seal Name Role Phone Eleonora Dillard Unavailable [phone] Sebastian Rachel Unavailable Unavailable Reason For Referral No Information Encounters Encounter Location Date Provider Diagnosis [facility] - [facility] [address] [place], [place] [phone] 02/17/2024 [employer] Dillard Plan Of Treatment No Information Insurance Providers Payer Name Payer Address Payer Phone Subscriber Number Group Number Insured Name Patient Relationship to Insured Coverage Start Date Coverage End Date Medicaid Community [facility] [employer] [address] [place] [phone] [id number] Arben Emanuel Self - patient is the insured
--- OUTSIDE RECORDS SUMMARY | 2024-05-02 18:04 | XMS_ITS | Encounter Summary ---
Author Organization [employer] Address [address] [place] [address] Care Team Providers Care Fire Equipment Inspector Name Role Phone Asha Dodge MD Primary Care Provider [phone] Reason for Visit * Reason Comments Med Refill Encounter Details Date Type Department Care Team ([facility] st Contact Info) Description 04/05/2024 Refill [facility] MED[facility]INE [address] [place], [place] [phone] Asha Dodge MD [address] [place], [place] [phone] Social History Tobacco Use Types Packs/Day Years [...] documented as of this encounter Care Teams Fire Equipment Inspector Relationship Specialty Start Date End Date Asha Dodge MD [address] [place] [phone] PCP - General Family Medicine 12/29/22 documented as of this encounter
--- OUTSIDE RECORDS SUMMARY | 2024-05-02 18:04 | XMS_ITS | Encounter Summary ---
Author Organization [employer] Address [address] 7[address] [place] [address] Care Team Providers Care Conditioning Coach Name Role Phone Asha Dodge MD Primary Care Provider [phone] Encounter Details Date Type Department Care Team (Late st Contact Info) Description 04/21/2022 Orders Only [facility] MEDICINE [address] [place] [address] Kaylie Cardona MD [address] [place] [address] Hemochromatosis, unspecified hemochromatosis type (Primary Dx) Social History Tobacco Use Types [...] not to disclose 2021 10:22 AM EDT COVID-19 Exposure Response Date Recorded In the last 10 days, have yo u been in contact with someone who was confirmed or suspected to have Coronavirus/COVID-19? No / Unsure 04/20/2022 9:29 AM EST documented as of this encounter Plan of Treatment Not on file documented as of this encounter Procedures Procedure Name Priority Date/Time Associated Diagnosis Comments HIGH SENSITIVITY TROPONIN I Routine 05/02/2022 9:18 PM EST Hemochromatosis, unspecified hemochromatosis type CBC WITH AUTO DIFFERENTIAL Routine 05/02/2022 9:18 PM EST Hemochromatosis, unspecified hemochromatosis type LIPASE Routine 05/02/2022 9:18 PM EST Hemochromatosis, unspecified hemochromatosis type COMPREHENSIVE METABOLIC PANEL Routine 05/02/2022 9:18 PM EST Hemochromatosis, unspecified hemochromatosis type documented in this encounter Results * HIGH SENSITIVITY TROPONIN I (05/02/2022 9:18 PM EST) [facility] TROPONIN I HIGH SENSITIVITY <3.5 <3.5 - 35.0 ng/L [facility] Comment:The Baron high sens itivity Troponin-I results should beused in conjunction with other diagnostic information suchas ECG, clinical observations and information, and patientsymptoms to aid in the diagnosis of AR. 05/02/2022 9:18 PM EST 05/02/2022 9:21 PM EST [facility] External Provider LAB BLO OD ORDERABLES Final Result Performing Organization Address City/[facility]/ZIP Co de Phone Number [facility] [address] [place] [phone] * Lipase (05/02/2022 9:18 PM EST) [facility] Lipase 35 8 - 78 U/L [facility] 05/02/2022 9:18 PM EST 05/02/2022 9:21 PM EST [facility] External Provider LAB BLO OD ORDERABLES Final Result Performing Organization Address [facility] Co de Phone Number [facility] [address] [place] [phone] * Comprehensive Metabolic Panel (05/02/2022 9:18 PM EST) [facility] Sodium 141 135 - 145 mmol/L [facility] Potassium 4.2 3.3 - 5.1 mmol/L [facility] Chloride 103 96 - 108 mmol/L [facility] Carbon Dioxide 27 22 - 29 mmol/L [facility] Anion Gap 15 12 - 20 [facility] Urea Nitrogen (BUN) 12 9 - 16 mg/dL [facility] Creatinine, Serum 1.04 0.5 - 1.4 mg/dL [facility] Creatinine Clr Calc Pharmacy 114.4 [facility] Comment:eGFR (calculated fro m the MDRD study equation) and eCrCl(calculated from the Cockcroft-Gault equation) are based ondifferent parameters and may not yield comparable results.If eCrCl result is absurd, please check patient'sheight/weight. Estimated Glomerular Filt Rate >60 [facility] Comment:NOTE: For -Am erican individuals, multiply the result by 1.210.Chronic Kidney Disease: Estimated GFR < 60 mL/min/1.70a9Ncmvdd Kidney Disease: Estimated GFR < 15 mL/min/1.73m2 Glucose 96 60 - 115 mg/dL [facility] Calcium 9.7 8.4 - 10.2 mg/dL [facility] Bilirubin, Total 0.8 0.0 - 1.0 mg/dL [facility] Aspartate Amino Transferase 20 5 - 37 U/L [facility] Alanine Aminotransferase 31 0 - 40 U/L [facility] Total Protein 7.3 6.5 - 8.0 g/dL [facility] Albumin Level 4.4 3.5 - 5.0 g/dL [facility] Alkaline Phosphatase 81 39 - 117 U/L [facility] 05/02/2022 9:18 PM EST 05/02/2022 9:21 PM EST us [facility] External Provider LAB BLO OD ORDERABLES Final Result [facility] [address] [place] [phone] [phone] * (ABNORMAL) CBC auto differential (05/02/2022 9:18 PM EST) White Blood Count 8.8 4.8 - 10.8 X10*3/uL [facility] Red Blood Count 5.81(H) 4.60 - 5.80 X10*6/uL [facility] Hemoglobin 18.7(H) 14.0 - 18.0 g/dl [facility] Hematocrit 51.7 42.0 - 52.0 % [facility] Mean Corpuscular Volume 89.0 80.0 - 98.0 fL [facility] Mean Corpuscular Hemoglobin 32.2 27.0 - 33.0 pg [facility] Mean Corpuscular HGB Conc 36.2(H) 31.0 - 36.0 g/dl [facility] Red Cell Distribution Width 11.8 11.0 - 16.0 % [facility] Platelet Count 258 160 - 400 X10*3/uL [facility] Mean Platelet Volume 9.2(L) 9.4 - 12.4 fL [facility] Neutrophils Percent Auto 69.4 45 - 73 % [facility] Imm Gran Pct Auto 0.1 0.0 - 0.4 % [facility] Lymphocytes Percent Auto 22.1 20 - 40 % [facility] Monocytes Percent Auto 6.1 2 - 11 % [facility] Eosinophils Percent Auto 1.5 0 - 4 % [facility] Basophils Percent Auto 0.8 0 - 2 % [facility] NRBC Pct Auto 0.0 0.0 - 0.2 /100WBC [facility] Neutrophils Absolute Auto 6.1 2.0 - 8.3 x10*3/uL [facility] Imm Gran Abs Auto 0.01 0.00 - 0.03 X10*3/uL [facility] Lymphocytes Absolute Auto 1.9 1.2 - 4.9 X10*3/uL [facility] Monocytes Absolute Auto 0.5 0.1 - 1.2 X10*3/uL [facility] Eosinophils Absolute Auto 0.1 0.0 - 0.4 X10*3/uL [facility] Basophils Absolute Auto 0.1 0.0 - 0.2 X10*3/uL [facility] NRBC Abs Auto 0.000 0.0 - 0.012 X10*3/uL [facility] 05/02/2022 9:18 PM EST 05/02/2022 9:21 PM EST [facility] External Provider LAB BLO OD ORDERABLES Final Result [facility] [address] [place] [phone] documented in this encounter Visit Diagnoses Diagnosis Hemochromatosis, unspecified hemochromatosis type- Primary documented in this encounter Care Teams Conditioning Coach Relationship Specialty Start Date End Date Asha Dodge MD [address] [place] [address] PCP - General Family Medicine 12/29/22 documented as of this encounter
--- OUTSIDE RECORDS SUMMARY | 2024-05-02 18:04 | XMS_ITS | Encounter Summary ---
Author Organization [employer] Address [address] [place] [address] Care Team Providers Care Director Of Solutions Architecture Name Role Phone Asha Dodge MD Primary Care Provider [phone] Reason for Visit * Reason Comments Care Coordination CHW outreach for SDO H PT-1 and food needs-LVM Encounter Details Date Type Department Care Team (Latest Contact Info) Description 04/04/2024 Patient Outreach [facility] MEDICINE [address] [place] [address] Asha Dodge MD [address] [place] [address] Care Coordination (CHW outreach for SDOH PT-1 and food needs-LVM ) Social History Tobacco Use Types Packs/Day Years [...] housing situation today? I have brianna garay 03/16/[address] you [...] AM EDT documented as of this encounter Progress Notes * Jose A Artis - 04/04/2024 9:37 AM EST CHW Jose A Artis, placed outbound call to patient for assistance with SDOH as a referral was placed by the provider. Patient had screened positive for the following SDOH insecurities. No answer atthis time. Patient's name and were not confirmed. CHW left detailed message and provided contact information requesting return call for assistance. Patient educated on extended clinic hours on Mondays through Wednesdays, and Walk-In Urgent Care Located in [facility]. Patient provided with after-hours line for [facility], , which offer night time triage service and option to transfer toon call provider if needed. documented in this encounter Plan of Treatment Not on file documented as of this encounter Visit Diagnoses Not on filedocumented in this encounter Additional Health Concerns Assessment Noted Time PHQ-9 Depression Total Score: 3 06/03/19 24 3:02 PM EDT documented as of this encounter Care Teams Director Of Solutions Architecture Relationship Specialty Start Date End Date Asha Dodge MD [address] [place] [address] PCP - General Family Medicine 12/29/22 documented as of this encounter
--- OUTSIDE RECORDS SUMMARY | 2024-05-02 18:04 | XMS_ITS | Encounter Summary ---
Author Organization [employer] Address [address] [place] [address] Care Team Providers Care Director Of Database Marketing Name Role Phone Asha Dodge MD Primary Care Provider [phone] Reason for Visit * Reason Onset Date Comments PT1 09/06/2023 Encounter Details Date Type Department Care Team ([facility] st Contact Info) Description 09/06/2023 Telephone [facility] MEDICINE [address] [place], [place] [phone] Asha Dodge MD [address] [place], [place] [phone] PT1 Social History Tobacco Use Types Packs/Day [...] * Telephone Encounter - Latosha Jamison - 09/06/2023 3:15 PM EDT Patient calling requesting PT1 Home Address verified: Y/N: Yes Provider name or facility name: [facility] Facility Address: [address] [place] [address] Escort needed: Y/N: No Do you have a wheelchair: Y/N: No If yes- Manual or electric: no Visits: n/a documented in this encounter Plan of Treatment Not on file documented as of this encounter Visit Diagnoses Not on filedocumented in this encounter Additional Health Concerns Assessment Noted Time PHQ-9 Depression Total Score: 3 06/03/19 24 3:02 PM EDT documented as of this encounter Care Teams Director Of Database Marketing Relationship Specialty Start Date End Date Asha Dodge MD [address] [place] [phone] PCP - General Family Medicine 12/29/22 documented as of this encounter
--- OUTSIDE RECORDS SUMMARY | 2024-05-02 18:04 | XMS_ITS | Encounter Summary ---
Author Organization [facility] Address [address] [place] [address] Care Team Providers Care Nuclear Plant Equipment Operator Name Role Phone Asha Dodge Primary Care Provider [phone] Encounter Details Date Type Department Care Team (Late st Contact Info) Description 03/21/2023 Orders Only [facility] Interventional Radiology [address] [place], [place] [phone] Doug Hassan MD [address] [place], [place] [phone] Social History Tobacco Use Types Packs/Day Years Used Date Smoking Tobacco: Never Smokeless Tobacco: Never Alcohol Use Standard Drinks/Week Comments Never 0 (1 standard drink = 0.6 oz pur e alcohol) Sex and Gender Information Value Date Recorded Sex Assigned at Male 05/17/2022 1:17 PM EDT Legal Sex Male 11:54 AM EST Gender Identity Male 05/17/2022 1:17 PM EDT Sexual Orientation Straight 05/17/2022 1: 17 PM EDT documented as of this encounter Plan of Treatment Upcoming Encounters Date Type Department Care Team (Late st Contact Info) Description 07/23/2024 11:30 AM EDT Office Visit [facility] Neurology [facility] [address] [place] [address] Sebastian Rachel MD [address] [place] [address] [phone] Scheduled Procedures Name Priority Associated Diagnoses Date/Ti me UPPER ENDOSCOPY WITH ENDOSCO PIC ULTRASOUND WITH POSSIBLE MODERATE SEDATION Elevated lipase documented as of this encounter Visit Diagnoses Not on filedocumented in this encounter Care Teams Nuclear Plant Equipment Operator Relationship Specialty Start Date End Date Asha Dodge [address] [place] [address] PCP - General 07/15/23 documented as of this encounter
--- OUTSIDE RECORDS SUMMARY | 2024-05-02 18:04 | XMS_ITS | Clinical Summary ---
Author Organization [facility] Address [address] [facility] [address] [place] [address] Phone Care Team Providers Care Chemistry Laboratory Technician Name Role Phone Kaylie Cardona MD Primary Care Provider [phone] Allergies No known active allergies Medications omeprazole (PriLOSEC) [address] capsule Take 20 mg by mouth 1 (one) time each day Do not crush or chew. Active Active Problems Problem Noted Date Diagnosed Date Essential (primary) hypertension 06/28/2022 Simple renal cyst 06/28/2022 Family History Medical History Relation Comments Diabetes Father Leukemia Father Relation Status Comments Father Mother Social History Tobacco Use Types Packs/Day Years Used Date Smoking Tobacco: Never Smokeless Tobacco: Never Tobacco Cessation:Counseling Given: No Alcohol Use Standard Drinks/Week Comments Not Currently 0 (1 standard drink = 0.6 oz pur e alcohol) Sex and Gender Information Value Date Recorded Sex Assigned at Not on file Legal Sex Male 3:53 PM EST Gender Identity Not on file Sexual Orientation Not on file Last Filed Vital Signs Vital Sign Reading Time Taken Comments Blood Pressure 110/68 06/28/2022 4:01 PM EDT Pulse 82 06/28/2022 4:01 PM EDT Temperature - - Respiratory Rate - - Oxygen Saturation - - Inhaled Oxygen Concentration - - Weight 90.6 kg (199 lb 12.8 oz) 06/28/2022 4:01 PM EDT Height - - Body Mass Index - - Plan of Treatment Health Maintenance Due Date Last Done Comments Pneumococcal Vaccine: Pediat rics (0 to 5 Years) and At-Risk Patients (6 to 64 Years) (1 of 2 - PCV) 10/18/1991 Hepatitis B Vaccine (1 of 3 - 19+ 3-dose series) 2004 Influenza Vaccine (#1) 2023 , 03/05/2019, 12/24/2016 Insurance [place]ICA[place] [address] [place] [phone] [place] Care Teams Chemistry Laboratory Technician Relationship Specialty Start Date End Date Kaylie Cardona MD PCP - General Family Medicine 05/04/22
--- OUTSIDE RECORDS SUMMARY | 2024-05-02 18:04 | XMS_ITS | Encounter Summary ---
Author Organization [employer] Address [address] [place] [address] Care Team Providers Care Sheet Mill Supervisor Name Role Phone Asha Dodge MD Primary Care Provider [phone] Reason for Visit * Reason Comments Med Change Request Encounter Details Date Type Department Care Team ([facility] st Contact Info) Description 03/28/2024 Refill [facility] MEDICINE [address] [place], [place] [phone] Asha Dodge MD [address] [place], [place] [phone] Social History Tobacco Use Types Packs/Day Years [...] documented as of this encounter Care Teams Sheet Mill Supervisor Relationship Specialty Start Date End Date Asha Dodge MD [address] [place] [phone] PCP - General Family Medicine 12/29/22 documented as of this encounter
--- OUTSIDE RECORDS SUMMARY | 2024-05-02 18:04 | XMS_ITS | Encounter Summary ---
Author Organization [facility] Address [address] [place] [address] Care Team Providers Care Director Of Pediatric Rehabilitation Name Role Phone Asha Dodge Primary Care Provider [phone] Encounter Details Date Type Department Care Team (Late st Contact Info) Description 02/17/2022 Telephone [facility] Patient Access Center [address] [place] [phone] Telephone Intake, Staff Social History Tobacco Use Types Packs/Day Years [...] PM EDT documented as of this encounter Miscellaneous Notes * Telephone Encounter - Jolynn Montoya MA - 02/18/2022 1:38 PM EST Spoke with patient and gathered more information: Patient has been having paraesthesia on left side of head, over eye and near eyebrow-- comes and goes, also reporting same directly above ear but travels to to other parts of left side, started out as constant for about 6 days and moved into neck and shoulder and now is sporadic Also reporting soreness that is dull on left side No symptoms on the right side [employer] [employer] thought he may have viral infection but he didn't see anything, patient reports opthalmologic noticed inside corner near optic muscle is angry Patient is having severe splitting headaches, but reports no sign of blood clot This all started 2 sundays ago--- he reports aspirin makes it better for a little bit He is also having tightness around occipital lobe on left and neck on left side He also reports dizziness on and off and it's worse when the headaches get worse Symptoms seem to increase as pulse rate is higher Tightness on left side even in arms * Telephone Encounter - Mary Joanna - 02/17/2022 11:37 AM EST PT scheduled follow up with Dr. Perea for May, but has questions about trimenial neuralgia that he spoke to inspector insulation about. Please follow up with PT at [phone]. documented in this encounter Plan of Treatment Upcoming Encounters Date Type Department Care Team (Late st Contact Info) Description 07/23/2024 11:30 AM EDT Office Visit [facility] Neurology Clinic [address] [place], [place] [phone] Sebastian Rachel MD [address] [place], [place] [phone] Scheduled Procedures Name Priority Associated Diagnoses Date/Ti me UPPER ENDOSCOPY WITH ENDOSCO PIC ULTRASOUND WITH POSSIBLE MODERATE SEDATION Elevated lipase documented as of this encounter Visit Diagnoses Not on filedocumented in this encounter Care Teams Director Of Pediatric Rehabilitation Relationship Specialty Start Date End Date Asha Dodge [address] [place] [address] PCP - General 07/15/23 documented as of this encounter
--- OUTSIDE RECORDS SUMMARY | 2024-05-02 18:04 | XMS_ITS | Encounter Summary ---
Author Organization [facility] Address [address] [place] [address] Care Team Providers Care Numerical Control Drill Press Operator Name Role Phone Asha Dodge Primary Care Provider [phone] Encounter Details Date Type Department Care Team (Late st Contact Info) Description 03/16/2024 myChart Message [facility] Neurology Clinic [address] [place] [phone] Sebastian Rachel MD [address] [place] [address] [phone] at home sleep study Social History Tobacco Use Types Packs/Day Years [...] Description 07/23/2024 11:30 AM EDT Office Visit [facility] Neurology Clinic [address] [place] [address] [phone] Sebastian Rachel MD [address] [place] [address] [phone] Scheduled Procedures Name Priority Associated Diagnoses Date/Ti me UPPER ENDOSCOPY WITH ENDOSCO PIC ULTRASOUND WITH POSSIBLE MODERATE SEDATION Elevated lipase documented as of this encounter Visit Diagnoses Not on filedocumented in this encounter Care Teams Numerical Control Drill Press Operator Relationship Specialty Start Date End Date Asha Dodge [address] [place] [address] PCP - General 07/15/23 documented as of this encounter
--- OUTSIDE RECORDS SUMMARY | 2024-05-02 18:04 | XMS_ITS | Encounter Summary ---
Author Organization [employer] Address [address] [place] [address] Care Team Providers Care Design Consultant Name Role Phone Asha Dodge MD Primary Care Provider [phone] Reason for Visit * Reason Comments Care Coordination CHW outreach for SDO H PT-1 and food needs-referral completed Encounter Details Date Type Department Care Team (Latest Contact Info) Description 04/19/2024 Patient Outreach [facility] MEDICINE [address] [place] [address] Asha Dodge MD [address] [place] [address] Care Coordination (CHW outreach for SDOH PT-1 and food needs-referral completed /) Social History Tobacco Use Types Packs/Day Years [...] Progress Notes * Jose A Artis - 04/19/2024 3:38 PM EST CHW Jose A Artis, placed outbound call to patient for assistance with SDOH as a referral was received by the provider. Patient's name and were confirmed. Patient screened positive for the following SDOH transportation & food insecurities. CHW requested PT-1 plus referred family to B pantries in the local area. Patient agree to follow up with plan. Patient educated on extended clinic hours on Mondays through Wednesdays, and Walk-In Urgent Care Located in [facility]. Patient provided with after-hours line for [facility], , which offer night time triage service and option to transfer to command and control specialist provider if needed. documented in this encounter Plan of Treatment Not on file documented as of this encounter Visit Diagnoses Not on filedocumented in this encounter Additional Health Concerns Assessment Noted Time PHQ-9 Depression Total Score: 3 06/03/19 24 3:02 PM EDT documented as of this encounter Care Teams Design Consultant Relationship Specialty Start Date End Date Asha Dodge MD [address] [place] [phone] PCP - General Family Medicine 12/29/22 documented as of this encounter
--- OUTSIDE RECORDS SUMMARY | 2024-05-02 18:04 | XMS_ITS | Encounter Summary ---
Author Organization [employer] Address [address] [place] [address] Care Team Providers Care Loom Changeover Operator Name Role Phone Asha Dodge MD Primary Care Provider [phone] Encounter Details Date Type Department Care Team (Late st Contact Info) Description 03/21/2023 Orders Only [facility] WALK-IN CENTER [address] [place], [place] [phone] Doug Quintana MD [address] [place], [place] [phone] Social History Tobacco Use Types Packs/Day Years [...] on filedocumented in this encounter Care Teams Loom Changeover Operator Relationship Specialty Start Date End Date Asha Dodge MD [address] [place], [place] [phone] PCP - General Family Medicine 12/29/22 documented as of this encounter
--- OUTSIDE RECORDS SUMMARY | 2024-05-02 18:04 | XMS_ITS | Encounter Summary ---
Author Organization [employer] Address [address] [facility] [address], [place] [address] Care Team Providers Care Network Intern Name Role Phone Live Olson MD Primary Care Provider [phone] Reason for Referral * Consultation (Routine) - Authorized Specialty Diagnoses / Procedures Referred By Contac t Referred To Contact Endocrinology Diagnoses Thyroid nodule Live Olson MD [address] [place] [id number] Phone: tel: fax: [facility] - Endocrine Surgery [address] [place] [address] Phone: tel: fax: Referral ID Status Reason Start Date Expiration Date Visits Requested Visits Authorized [id number] Authorized Specialty Services Required 04/04/2024 04/04/2025 6 6 Encounter Details Date Type Department Care Team (Latest Contact Info) Description 03/28/2024 3:15 PM EST Office Visit [facility] [address] [place] [address] [phone] Live Olosn MD [address] [place] [address] [phone] 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 year old male who presents for chronic disease management, follow-up thyroid ultrasound. 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 Exercise intolerance as symptom of thisas well, start slowly with light cardio. 2. Thyroid ultrasound 03/26/24: Location: Right medial. Size: 2.6 x 0.9 [...] Change in ACR TI-RADS risk category: No Lab Results Component Value Date TSH 2.97 02/24/2024 Will ask his Endo provider at [facility], Dr Kisha Eaton to biopsy 3. Discussed nail manifestations of hemochromatosis 4. Would like limited Lorazepam 0.5mg for anxiety. Discussed risks and benefits, not indicated for long-term use. Interim Updates: Constipation Taking Metamucil daily Has Miralax for more severe symptoms 06/2023 CT abdomen 1. Significant urinary bladder distention, nonspecific. Correlate clinically for urinary retention. 2. Colonic diverticulosis but no evidence of acute diverticulitis. 3. Large stool ball in the rectum. Rashes - Hyperpigmented red macules on chest, not responsive to monotherapy with clotrimazole, miconazole,or triamcinolone. - With nystatin-triamcinolone the rash has abated. - He notes that when then the rash is present, he also experiences coughing, sneezing, insomnia, and anxiety. - his apartment has mold mitigation, which did not resolve his symptoms - Skin redness after liquid nitrogen treatment on scalp and knee, uses steroid cream for comfort Renal cyst - may have it drained at [facility] with goal of treating secondary polycythemia vera 04/2023 ENT: mucus retention cyst, without evidence of sinonasal obstruction or sinusitis. I let himknow that mucus retention cysts are typically incidental findings, are asymptomatic and does not require further follow up, intervention or treatments, unless large and /or causing sinus obstructions. Symptoms of facial pain, pressure, discolored mucus discharge or nasal obstruction may prompt a visit. ?? Small foci of mineralization in the bilateral basal ganglia Hemochromatosis - Speaking with Dr Good about possibly finding a trial of hepcidin injections as treatment - On ASA, in process of scheduling next phlebotomy, last was 01/02/24 in [facility] site - Diagnosed in [address] Spicer at [facility] elevated ferritin level of 1024 at that time, has seen multiple Hematologists Dr. Cunningham in [place], [place] and Dr Good and [facility], as well as Dr Spicer at [facility]. 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) and had an MRI showing iron deposition in the liver, he has no family history of hemochromatosis - saw [facility] 09/2023 for second opinion, recommendations phlebotomy q4 weeks, avoid red meat/iron/Vit C goal ferritin <100, cyst drained, and repeat liver MRI to view iron burden Lab Results Component Value Date FERRITIN 249 01/30/2024 FERRITIN 324 (H) 06/13/2023 FERRITIN 393 (H) 03/28/2023 FERRITIN 278 (H) 03/18/2023 Polycythemia Vera Likely secondary to renal cyst and hemochromatosis Intermittent HTN and tachycardia Not on any medications Not at goal today May be related to constipation, insomnia and anxiety 06/2023 normal am cortisol, 05/2023 saw ENT metanephrnes ordered, follow thyroid nodule clinically Anxiety He occasionally takes 0.5mg Lorazepam understands benzos are less than ideal due to tolerance and addiction potential Has been on Celexa 5mg in the past, not helpful He feels it is related to severe insomnia and disregulated circadian rhythm 05/2023 genetics at [facility], recommend pharmacogenomics at [facility] based on possible tailored therapy for anti-depressant, anti-anxiety, and anti-cholesterol 07/2023 Neuropsych eval: cPTSD, schizotypal and avoidant personality GERD Sees Dr Spears at [facility] 05/11/23 EGD: mild gastritis, duodenitis, esophagitis. Acutely elevated lipase of 278 06/2023, unclear etiology, pancreas normal appearing on MRI. Prior lipase values within normal limits Does not drink alcohol Lab Results Component Value Date LIPASE 27 03/28/2023 LIPASE 76 06/15/2022 LIPASE 35 05/02/2022 GI switched him to pantoprazole for GERD symptoms, this is helpful 11/2023 Dr Spears, GI note: veronica dermatitis--r/o vit deficiency 3/ abn bowel habits 4/ elevated lipase, amylase could be from erosive gastritis or from polycythemia ! Median acuate ligament compression syndrome, MRI angio ordered to explore diagnosis returned negative L arm paraesthesias Ruled out thoracic outlet syndrome with normal MRI and UE duplex US Venous thombosis Chronic clot seen in 2020, treated with Eliquis, most recent bilateral lower extremity duplex venous study showed no evidence of DVT Insomnia Home sleep study coming up, question about whether to get it through [facility] or [facility] Using small amount of Melatonin 1.25mg at night to sleep ED Using Cialis Sees Dr [address] at [facility] HLD 12/2022 Chol 224/LDL 165 Took Rosuvastatin 10mg for one dose, felt side effects so did not continue to take after contactinghis terminal computer operator Alport Syndrome, 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 at [facility] 05/2023 Autism/ADHD Seen at [facility] for therapy, has been through multiple therapists in the past several years Had neuropysch evaluation at [facility] 07/2023 with diagnoses of cPTSD, 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, major depression Health Maintenance Imms- due for HPV #2 (started first dose in 11/2021), PCV20, Hep B, and COVID Colon Cancer- at age 45 Patient Active Problem List Diagnosis Elevated blood pressure reading Mild intermittent asthma Paresthesia Neck pain Chronic left shoulder pain Bilateral renal cysts Left-sided low back pain without sciatica Biceps tendinitis on right Retention cyst of paranasal sinus Seborrheic dermatitis Left arm numbness Essential (primary) hypertension Gastroesophageal reflux disease Primary insomnia Anxiety Mucous retention cyst of maxillary sinus Hyperlipidemia 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 Family history of kidney disease in maternal grandmother 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 Social History Social History Narrative Not on file Review of Systems Constitutional: Positive for fatigue. Negative for chills, diaphoresis, fever and unexpected weightchange. Respiratory: Negative. Cardiovascular: Negative. Musculoskeletal: Negative. Skin: Negative. Psychiatric/Behavioral: Positive for sleep disturbance. Negative for self-injury and suicidal ideas. The patient is nervous/anxious. OBJECTIVE: Vitals: 03/28/24 1537 BP: (!) 150/99 BP Location: Right arm Patient Position: Sitting BP Cuff Size: Adult Pulse: 76 Resp: 18 Temp: 98.8 ??F (37.1 ??C) TempSrc: Temporal SpO2: 98% Weight: 190 lb (86.2 kg) Height: 5' 11 (1.803 m) Physical Exam Constitutional: Appearance: Normal appearance. He is normal weight. HENT: Head: Normocephalic and atraumatic. Cardiovascular: Rate and Rhythm: Normal rate and regular rhythm. Pulses: Normal pulses. Heart sounds: Normal heart sounds. Pulmonary: Effort: Pulmonary effort is normal. Breath sounds: Normal breath sounds. Musculoskeletal: Cervical back: Normal range of motion and neck supple. Skin: General: Skin is warm and dry. Capillary Refill: Capillary refill takes less than 2 seconds. Findings: Rash present. Comments: Seborrheic dermatitis Neurological: General: No focal deficit present. Mental Status: He is alert and oriented to person, place, and time. Psychiatric: Mood and Affect: Mood normal. Behavior: Behavior normal. 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) - Primary Relevant Orders Comprehensive Metabolic Panel Thyroid nodule Relevant Orders Referral to Endocrinology Follow Up: 2-3 months or sooner prn Allergies Allergen Reactions Allevyn Adhesive [Wound Dressings] Wound Dressing Adhesive Other reaction(s): Unknown Beta Adrenergic Blockers Palpitations Side effect only/ dc'd Flagyl [Metronidazole] Itching Fluorouracil Rash Current Outpatient Medications: gabapentin (Neurontin) 100 MG capsule, take 1 capsule by mouth at bedtime as needed for sleep, Disp: , Rfl: albuterol (ProAir HFA) 108 (90 Base) MCG/ACT inhaler, Inhale 2 puffs every 6 (six) hours if needed for wheezing or shortness of breath., Disp: 18 g, Rfl: 0 aluminum chloride (Drysol) 20 % external solution, Apply topically at bedtime., Disp: 60 mL, Rfl: 0 docusate sodium (Colace) 100 MG capsule, Take 1 capsule (100 mg) by mouth Once per day., Disp: 90 capsule, Rfl: 3 fluticasone (Flonase) 50 MCG/ACT nasal spray, Administer 1-2 sprays into each nostril Once per day.Shake gently. Before first use, prime pump. After use, clean tip and replace cap., Disp: 16 g, Rfl:2 lidocaine (Xylocaine) 5 % ointment, Apply topically if needed for mild pain (prior to phlebotomy).,Disp: 50 g, Rfl: 11 loratadine (Claritin) 10 MG tablet, Take 1 tablet (10 mg) by mouth Once per day., Disp: 30 tablet, Rfl: 11 nystatin-triamcinolone (Mycolog II) ointment, Apply topically 2 times daily., Disp: 15 g, Rfl: 0 polyethylene glycol, PEG, 3350 (Glycolax) 17 GM/SCOOP powder, Take 17 g by mouth Once per day., Disp: 510 g, Rfl: 1 thiamine (Vitamin B-1) 100 MG tablet, Take 1 tablet (100 mg) by mouth Once per day., Disp: 90 tablet, Rfl: 3 documented in this encounter Miscellaneous Notes * Addendum Note - Live Olson MD - 03/28/2024 3:15 PM ESTAddended by: LIVE OLSON on: 04/03/2024 03:25 PM Modules accepted: Orders documented in this encounter Plan of Treatment Scheduled Orders Name Type Priority Associated Diagnoses Orde r Schedule Comprehensive Metabolic Panel Lab Routine 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) Expected: 03/28/2024 (Approximate), Expires: 03/28/2025 Scheduled Referrals Name Type Priority Associated Diagnoses Order Schedule Referral to Endocrinology Outpatient Referral Routine Thyroid nodule Expected: 04/03/2024 (Approximate), Expires: 04/03/2025 documented as of this encounter Visit Diagnoses Diagnosis 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
--- OUTSIDE RECORDS SUMMARY | 2024-05-02 18:04 | XMS_ITS | Encounter Summary ---
Author Organization [facility] Address [address] [place] [address] Care Team Providers Care Sole Dyer Name Role Phone Asha Dodge Primary Care Provider [phone] Encounter Details Date Type Department Care Team (Late st Contact Info) Description 03/16/2024 myChart Message [facility] [address] [place] [address] [phone] So Hall MD [address] [place] [address] [phone] autonomic storming - sleep study Social History Tobacco Use Types [...] Description 07/23/2024 11:30 AM EDT Office Visit [facility] [address] [place] [address] [phone] Sebastian Rachel MD [address] [place] [address] [phone] Scheduled Procedures Name Priority Associated Diagnoses Date/Ti me UPPER ENDOSCOPY WITH ENDOSCO PIC ULTRASOUND WITH POSSIBLE MODERATE SEDATION Elevated lipase documented as of this encounter Visit Diagnoses Not on filedocumented in this encounter Care Teams Sole Dyer Relationship Specialty Start Date End Date Asha Dodge [address] [place] [address] PCP - General 07/15/23 documented as of this encounter
--- OUTSIDE RECORDS SUMMARY | 2024-05-02 18:04 | XMS_ITS | Encounter Summary ---
Author Organization [facility] Address [address] [place] [address] Care Team Providers Care Shear Assembler Name Role Phone Asha Dodge Primary Care Provider [phone] Encounter Details Date Type Department Care Team (Late st Contact Info) Description 07/17/2021 Orders Only [facility] [address] [place] [phone] BrendanManoloKaylie [address] [place] [address] Social History Tobacco Use Types Packs/Day Years [...] Description 07/23/2024 11:30 AM EDT Office Visit [facility] [address] [place] [phone] Sebastian Rachel MD [address] [place] [address] Scheduled Procedures Name Priority Associated Diagnoses Date/Ti me UPPER ENDOSCOPY WITH ENDOSCO PIC ULTRASOUND WITH POSSIBLE MODERATE SEDATION Elevated lipase documented as of this encounter Procedures * Due to [place] state law, this organization might not be sharing negative HIV tests. Procedure Name Priority Date/Time Associated Diagnosis Comments LAB - SCANNED Routine 04/08/2021 documented in this encounter Results * Due to [place] state law, this organization might not be sharing negative HIV tests. * LAB - SCANNED (04/08/2021) [facility] Card[facility] LAB HISTORICAL RESULTS Final Res ult documented in this encounter Visit Diagnoses Not on filedocumented in this encounter Care Teams Shear Assembler Relationship Specialty Start Date End Date Asha Dodge [address] [place] [phone] PCP - General 07/15/23 documented as of this encounter
--- OUTSIDE RECORDS SUMMARY | 2024-05-02 18:04 | XMS_ITS | Encounter Summary ---
Author Organization [employer] Address [address] [place] [address] Care Team Providers Care Performance Improvement Manager Name Role Phone Asha Dodge MD Primary Care Provider [phone] Reason for Visit * Reason Onset Date Comments Referral 04/11/2024 Encounter Details Date Type Department Care Team ([facility] st Contact Info) Description 04/11/2024 Telephone [facility] [address] [place], [place] [phone] Asha Dodge MD [address] [place], [place] [phone] Referral Social History Tobacco Use Types Packs/Day Years [...] encounter Miscellaneous Notes * Telephone Encounter - Mayra Tobin RN - 04/12/2024 9:49 AM EST TC returned to Yasmeen [phone] in regards to below message. Yasmeen reports she is affiliated with [facility] neurology and the provider Dr. Eddi Rachel ordered a sleep study which is scheduled for 05/02/24 at [facility] neurology reports they were informed [facility] needs a referral from PCP office for sleep study. RN called [facility] at [phone] to inquire on what is needed from PCP office. RN was informed [facility] needs a [facility] P[facility] referral (R #). Please submit to [facility]. Thank you! * Telephone Encounter - Yessy Olvera - 04/12/2024 9:29 AM EST Tc from Yasmeen stating received a call from nurses. [phone] * Telephone Encounter - Thony Rosenberg - 04/11/2024 3:29 PM EST TC from Yasmeen with [facility] Neurology reports pt is scheduled for a Sleep study at [facility] on 05/02/24. [facility] is requesting a referral from PCP . documented in this encounter Plan of Treatment Not on file documented as of this encounter Visit Diagnoses Not on filedocumented in this encounter Additional Health Concerns Assessment Noted Time PHQ-9 Depression Total Score: 3 06/03/19 24 3:02 PM EDT documented as of this encounter Care Teams Performance Improvement Manager Relationship Specialty Start Date End Date Asah Dodge MD [address] [place] [address] PCP - General Family Medicine 12/29/22 documented as of this encounter
--- OUTSIDE RECORDS SUMMARY | 2024-05-02 18:04 | XMS_ITS | Encounter Summary ---
Author Organization [employer] Address [address] [facility] [address] [place] [address] Care Team Providers Care System Safety Engineer Name Role Phone Asha Dodge MD Primary Care Provider [phone] Reason for Referral * Consultation (Routine) - Canceled Specialty Diagnoses / Procedures Referred By Contladonna t Referred To Contact Endocrinology Diagnoses Right thyroid nodule Rosana Landeros MD [address] [place] [address] Phone: tel: fax: [facility] Endocrinology [address] [place] [address] Phone: tel: fax: Referral ID Status Reason Start Date Expiration Date Visits Requested Visits Authorized [id number] Canceled Specialty Services Required 03/27/2024 03/27/2025 6 6 Encounter Details Date Type Department Care Team ([facility] Contact Info) Description 03/27/2024 Orders Only [facility] [address] [place] [phone] Rosana Landeros MD [address] [place] [address] Right thyroid nodule (Primary Dx) Social History Tobacco Use Types [...] Schedule Referral to Endocrinology Outpatient Referral Routine Right thyroid nodule Expected: 03/27/2024 (Approximate), Expires: 03/27/2025 documented as of this encounter Visit Diagnoses Diagnosis Right thyroid nodule- Primary documented in this encounter Additional Health Concerns Assessment Noted Time PHQ-9 Depression Total Score: 3 06/03/19 24 3:02 PM EDT documented as of this encounter Care Teams System Safety Engineer Relationship Specialty Start Date End Date Asha Dodge MD [address] [place] [address] PCP - General Family Medicine 12/29/22 documented as of this encounter
--- OUTSIDE RECORDS SUMMARY | 2024-05-02 18:04 | XMS_ITS | Referral Summary ---
Author Organization [facility] Address [address] [place] [address] Care Team Providers Care Rug Hooker Name Role Phone Asha Dodge Primary Care Provider [phone] Encounters Date Type Department Care Team Description 03/16/2024 zealot network Message [facility] [address] [place] [phone] Zachariah Bianchi MD seeking melatonin test 03/16/2024 zealot network Message [facility] [address] [place] [address] So Hall MD autonomic storming - sleep study 03/16/2024 zealot network Message [facility] [address] [place] [phone] Sebastian Rachel MD at home sleep study 02/13/2024 2:30 PM EST Office Visit [facility] [address] [place] [phone] Sebastian Rachel MD Obstructive sleep apnea (Primary Dx); Other insomnia from Last 3 Months Allergies Active Allergy Reactions Criticality Noted Date Comments Adhesive Tape-Silicones Unknown 06/18/2021 Tadalafil Blood pressure, low 11/04/2022 Metronidazole 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 LORazepam (ATIVAN) 1 mg tablet Take 1 mg by mouth as needed. 4 Active Gavilax powder Take 17 g by mouth once a day. 4 Active Compression Stockings, Knee HighIndications :Bilateral leg edema 20-30 mmHg by Other route once a day. Wear during the day, every day, as directed. 2 pair 2 4 Active Additional Information Patient not taking.Reported on 02/13/2024 Active Problems Problem Noted Date Diagnosed Date Insomnia 02/13/2024 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 Assessment & Plan (10/07/2023 2:03 PM EDT): He has known secondary erythrocytosis. Notes from outside records say that he is JAK2/CALR negative. He does have known kidney cyst which certainly can be cause of secondary erythrocytosis. If after cyst drainage (which he is getting at end of this month), hgb is still elevated >16.5, he can consider sleep study and/or pulmonary function tests. Bilateral leg edema 09/14/2023 Venous congestion 08/16/2023 Left facial numbness 11/02/2022 Overview (11/04/2022): Last Assessment & Plan: CN II-XII normal with gross examination. Intact sensation on CN V-II & intact taste on hx. Unknown precipitant, denies any trauma. Did have acute CT of the head and also had labs done. Reviewed labs, he did have elevated hemoglobin but does have a hx of hemochromatosis, reports he has not had phlebotomy since May. Reports he has had difficulties getting to [facility] to get labs, will check his labs. Left arm numbness 09/21/2022 Biceps tendinitis on right 07/16/2022 Overview (11/04/2022): Last Assessment & Plan: Patient with R bicep pain and positive yergarson test and positive speed test upon examination. Will administer toradol injection and send diclofenac. Thoracic outlet syndrome 05/18/2022 Left-sided low back pain without sciatica 2022 Chronic left shoulder pain 03/05/2022 Overview (11/04/2022): Last Assessment & Plan: Acute on chronic, never went to ortho, does have some pain with abduction and external rotation. Patient asked me to review MRI sent in June 2021, does have some left side disc protrusion but no stenosis or nerve compression. Mild intermittent asthma 02/09/2022 Hemochromatosis 10/08/2020 Overview (11/04/2022): Last Assessment & Plan: Followed by hematology. Per pt, lat ferritin was in the 400s. Assessment & Plan (10/07/2023 2:02 PM EDT): He is here for 2nd option. He is getting care for hemochromatosis at [facility]. 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 He has since resumed phlebotomy in September 2023 and notes these symptoms have resolved. Ferritin level has been between 278-492 on outside labs since 04/2023-09/2023. He showed me liver MRI from 06/30/2023 which showed moderate iron overload. Plan: - Continue with therapeutic phlebotomy to get ferritin to goal <100. If every monthly phlebotomy is not getting ferritin to go, can go down to q2 weekly. If he absolutely cannot tolerate phlebotomy, iron chelators are a possiblity (but they themselves have difficult to tolerate side effects). For now he can continue with phlebotomy as he is tolerating it. - He should get another liver MRI in the next year to see if liver iron concentration decreases with phlebotomies (as it should). -We discussed avoiding iron supplements, vitamin C (which increases absorption of iron) and iron fortified cereals. Red meat and other iron rich foods can be eaten in moderation. Raw seafood should be avoided as this can increase risk of vibrio vulnificans infection. Alcohol should be avoided or used in moderation. - He will continue care at [facility]. If any further questions come up, he is welcome to come back again to see me. Social History Tobacco Use Types Packs/Day Years [...] Orientation Straight 05/17/2022 1: 17 PM EDT Last Filed Vital Signs Vital Sign Reading Time Taken Comments Blood Pressure 138/98 02/13/2024 3:11 PM EST Pulse 92 02/13/2024 3:11 PM EST Temperature 36.8 ??C (98.2 ??F) 02/13/2024 2:38 PM ES T Respiratory Rate 18 02/13/2024 2:38 PM EST Oxygen Saturation 99% 02/13/2024 2:38 PM EST Inhaled Oxygen Concentration - - Weight 81.6 kg (180 lb) 02/13/2024 2:38 PM EST Height 179.5 cm (5' 10.67 ) 02/13/2024 2:[address] Body Mass Index 25.34 02/13/2024 2:38 PM EST Plan of Treatment Upcoming Encounters Date Type Department Care Team (Late st Contact Info) Description 07/23/2024 11:30 AM EDT Office Visit [facility] [address] [place] [address] Sebastian Rachel MD [address] [place] [address] Scheduled Procedures Name Priority Associated Diagnoses Date/Ti me UPPER ENDOSCOPY WITH ENDOSCO PIC ULTRASOUND WITH POSSIBLE MODERATE SEDATION Elevated lipase Insurance [employer] Care Teams Rug Hooker Relationship Specialty Start Date End Date Asha Dodge [address] [place] [address] PCP - General 07/15/23
--- OUTSIDE RECORDS SUMMARY | 2024-05-02 18:04 | XMS_ITS | Encounter Summary ---
Author Organization [employer] Address [address] [place] [address] Care Team Providers Care Vascular Nurse Name Role Phone Asha Dodge MD Primary Care Provider [phone] Reason for Visit * Reason Onset Date Comments PT1 07/15/2023 Encounter Details Date Type Department Care Team ([facility] st Contact Info) Description 07/15/2023 Telephone [facility] [address] [place], [place] [phone] Asha Dodge MD [address] [place], [place] [phone] PT1 Social History Tobacco Use Types Packs/Day [...] encounter Miscellaneous Notes * Telephone Encounter - Carmelina Thornton - 07/21/2023 12:11 PM EDT Patient will recieve approval / denial letter via mail. PT-1 Request [id number] Pending - [facility] [address] * Telephone Encounter - Toya Keyes - 07/15/2023 4:17 PM EDT Patient calling requesting PT1 Home Address verified: Y/N: Yes Provider name or facility name: [facility] Facility Address: [address] [place] [address] Escort needed: Y/N: No Do you have a wheelchair: Y/N: No If yes- Manual or electric: none Visits: once documented in this encounter Plan of Treatment Not on file documented as of this encounter Visit Diagnoses Not on filedocumented in this encounter Additional Health Concerns Assessment Noted Time PHQ-9 Depression Total Score: 3 06/03/19 24 3:02 PM EDT documented as of this encounter Care Teams Vascular Nurse Relationship Specialty Start Date End Date Asha Dodge MD [address] [place] [phone] PCP - General Family Medicine 12/29/22 documented as of this encounter
--- OUTSIDE RECORDS SUMMARY | 2024-05-02 18:04 | XMS_ITS | Clinical Summary ---
Author Organization [facility] ity Address [address] [place] [address] Care Team Providers Care Applications Engineer Manufacturing Name Role Phone Unavailable Primary Care Provider Unavailabl e Social History Tobacco Use Types Packs/Day Years Used Date Smoking Tobacco: Never Assessed Sex and Gender Information Value Date Recorded Sex Assigned at Not on file Legal Sex Male 1:21 PM EST Gender Identity Not on file Sexual Orientation Not on file Plan of Treatment Health Maintenance Due Date Last Done Comments DTaP,Tdap,and Td Vaccines (1 - Tdap) 2004 Hepatitis B Vaccines (1 of 3 - 19+ 3-dose series) 2004 COVID-19 Vaccine (2023-2 5 season) 2023 Influenza Vaccine (#1) 2023 HIB Vaccines Aged Out No longer eligi ble based on patient's age to complete this topic HPV Vaccines Aged Out No longer eligi ble based on patient's age to complete this topic Hepatitis A Vaccines Aged Out No long er eligible based on patient's age to complete this topic IPV Vaccines Aged Out No longer eligi ble based on patient's age to complete this topic MMR Vaccines Aged Out No longer eligi ble based on patient's age to complete this topic Meningococcal ACWY Vaccine Aged Out N o longer eligible based on patient's age to complete this topic Meningococcal B Vacine Aged Out No lo nger eligible based on patient's age to complete this topic Pneumococcal Vaccine: Pediat rics (0 to 5 Years) and At-Risk Patients (6 to 64 Years) Aged Out No longer eligible b ased on patient's age to complete this topic RSV Immunization Patients Un kira 20 months Aged Out No longer eligible b ased on patient's age to complete this topic Varicella Vaccines Aged Out No longer eligible based on patient's age to complete this topic
--- OUTSIDE RECORDS SUMMARY | 2024-05-02 18:04 | XMS_ITS | Encounter Summary ---
Author Organization [facility] Address [address] [place] [address] Care Team Providers Care Disposal Operator Name Role Phone Asha Dodge Primary Care Provider [phone] Encounter Details Date Type Department Care Team (Late st Contact Info) Description 03/16/2024 myChart Message [facility] [address] [place] [phone] Zachariah Bianchi MD [address] [place] [address] [phone] seeking melatonin test Social History Tobacco Use Types Packs/Day Years [...] 07/23/2024 11:30 AM EDT Office Visit [facility] [address] [place] [address] [phone] Sebastian Rachel MD [address] [place] [address] [phone] Scheduled Procedures Name Priority Associated Diagnoses Date/Ti me UPPER ENDOSCOPY WITH ENDOSCO PIC ULTRASOUND WITH POSSIBLE MODERATE SEDATION Elevated lipase documented as of this encounter Visit Diagnoses Not on filedocumented in this encounter Care Teams Disposal Operator Relationship Specialty Start Date End Date Asha Dodge [address] [place] [address] PCP - General 07/15/23 documented as of this encounter
--- OUTSIDE RECORDS SUMMARY | 2024-05-02 18:04 | XMS_ITS | Encounter Summary ---
Author Organization [employer] Address [address] [place] [address] Care Team Providers Care Freight Shipping Agent Name Role Phone Asha Dodge MD Primary Care Provider [phone] Reason for Visit * Reason Onset Date Comments PT1 04/19/2024 Encounter Details Date Type Department Care Team (Late st Contact Info) Description 04/19/2024 Telephone [facility] [address] [place], [place] [phone] Asha Dodge MD [address] [place], [place] [phone] PT1 Social History Tobacco Use Types Packs/Day [...] * Telephone Encounter - Clare Douglass - 04/19/2024 3:18 PM EST Patient calling requesting PT1 Home Address verified: Y/N: Yes Provider name or facility name: [facility] Address: [address] [place] [address] Escort needed: Y/N: No Do you have a wheelchair: Y/N: No If yes- Manual or electric: n/a Visits: 1 x a month documented in this encounter Plan of Treatment Not on file documented as of this encounter Visit Diagnoses Not on filedocumented in this encounter Additional Health Concerns Assessment Noted Time PHQ-9 Depression Total Score: 3 06/03/19 24 3:02 PM EDT documented as of this encounter Care Teams Freight Shipping Agent Relationship Specialty Start Date End Date Asha Dodge MD [address] [place] [phone] PCP - General Family Medicine 12/29/22 documented as of this encounter
--- OUTSIDE RECORDS SUMMARY | 2024-05-02 18:04 | XMS_ITS | Encounter Summary ---
Author Organization [employer] Address [address] [place] [address] Care Team Providers Care Clay Worker Name Role Phone Asha Dodge MD Primary Care Provider [phone] Reason for Visit * Reason Onset Date Comments Nurse Triage 03/29/2024 Encounter Details Date Type Department Care Team ([facility] st Contact Info) Description 03/29/[address] [facility] [address] [place], [place] [phone] Asha Dodge MD [address] [place], [place] [phone] Nurse Triage Social History Tobacco Use Types [...] Telephone Encounter - Mayra Tobin RN - 04/03/2024 12:59 PM EST Noted. * Telephone Encounter - Heather Heart RN - 03/29/2024 11:31 AM EST Images from the original note were not included. Call to Arben Emanuel for follow up on below. Pt states below pictures were for PCP Asha Dodge MD to review as was discussed with her at visit yesterday and below message just an FYI for her. No acute concerns. Still pending call back from Cardiology regarding BP concerns. Will forward this to Pcp to review and further advise either patient via Mychart or Red Team Nurses for plan of care. Protocol Used: Information Only Call - No Triage (Adult) Protocol-Based Disposition: Callback or Video Visit by PCP Today Override (Final) Disposition: Discuss with PCP and Callback by Nurse Override Reason: Already seen and questions Video visit offer not recorded Positive Triage Question: * Nursing judgment * All higher-acuity triage questions were negative Care Advice Discussed: * Reasons To Call Back - New symptoms develop - You have more questions - You become worse Chris Keon routed conversation to [place] Triage Nurse2 hours ago (8:37 AM) Arben Emanuel P [facility] Clinical Support (supporting Asha Dodge MD)15 hours ago (8:24 PM) AC One other thing this is my nails after soaking in water. You can see the deformity of the nail bed Attachments [id number] Arben Haro [facility] Clinical Support (supporting Asha Dodge MD)15 hours ago (8:04 PM) AC Dr. Dodge; Dr. Landeros and the 2 nurses this morning and the previous day and I think last week called and told me that the thyroid remained relatively unchained so I'm happy you pointed out that I needed another biopsy. When you asked if I was all right seeing him, I am for in a pinch things, it's just that he's constantly missing this kind of stuff. I skimmed over my results and had no idea I needed a biopsy until you said something, thank you. I left dr. Oliveira care, because he called me fragile. It felt like something was off and he kepttelling me that I didn't need testing done, yet he's the one I was seeing, while my body was being afflicted from the hemochromatosis. I was never referred to a apartment assistant manager in 2014 I wasn't referred to a ground source heat pump technician, he never said to anyone investigate why his iron levels are high; and leftmy anxiety as a scapegoat. I'd like to schedule my rsv/pneumonia vaccines and the 2nd booster for gardesil while I'm still able to. I[facility] about the blood pressure. I've noticed it slowlytick up over the last 3 weeks. It would read 123/84 at rest and then 125/80 at rest, and now it doesn't want to seem to go below 130/90 even at rest, and now I'm worried. I don't know what could be causing.. documented in this encounter Plan of Treatment Not on file documented as of this encounter Visit Diagnoses Not on filedocumented in this encounter Additional Health Concerns Assessment Noted Time PHQ-9 Depression Total Score: 3 06/03/19 24 3:02 PM EDT documented as of this encounter Care Teams Clay Worker Relationship Specialty Start Date End Date Asha Dodge MD [address] [place] [address] PCP - General Family Medicine 12/29/22 documented as of this encounter
--- OUTSIDE RECORDS SUMMARY | 2024-05-02 18:04 | XMS_ITS | Encounter Summary ---
Author Organization [employer] Address [address] [place] [address] Care Team Providers Care Supervisor Coating Name Role Phone Asha Dodge MD Primary Care Provider [phone] Reason for Visit * Reason Onset Date Comments PT1 05/31/2023 Encounter Details Date Type Department Care Team ([facility] st Contact Info) Description 05/31/2023 Telephone [facility] [address] [place], [place] [phone] Asha Dodge MD [address] [place], [place] [phone] PT1 Social History Tobacco Use Types Packs/Day [...] encounter Miscellaneous Notes * Telephone Encounter - Myriam Morataya RN - 06/14/2023 10:23 AM EDT Images from the original note were not included. Triage call regarding Pt portal message below. Pt answered call, alert, oriented, no difficulty speaking or asking questions. Pt reports continues with epigastric pain of stabbing nature. Pt reports symptoms are not worse than when seen in ED 06/12/23. Pt reports, I was diagnosed with acute pancreatitis which is why I have pain . Pt reports having BM yesterday 06/13/23 after receiving enema and Pomeds in ED. Pt asks what to eat. ED discharge instruction says advance to usual diet. Pt is educated as to importance of eating fresh vegetables and fruits as much as able. High fiber diet is helpfulfor constipation prevention, IE . whole grain foods, oatmeal, brown rice. Stay away from fatty, greasy fried foods. Pt was not wanting to obtain mirilax as per prescription. Pt is encouraged to startmiralax as prescribed with increase in fluids. Pt received 2 bags of IV fluid while in ED. Advised to keep fluid intake to 6-8 glasses daily to maintain good hydration and Pt agreed. Pt is advised to return to ED for further evaluation if pain increases prior to apt 06/21/23 and Pt agrees with disposition and home care reviewed. Insurance is verified as active. Protocol Used: Abdominal Pain - Male (Adult) Protocol-Based Disposition: See in Office or Video Visit within 2 Weeks Positive Triage Question: * Abdominal pain is a chronic symptom (recurrent or ongoing AND lasting > 4 weeks) * All higher-acuity triage questions were negative Care Advice Discussed: * Reassurance and Education - Stomach Pain * Rest * Drink Clear Fluids * Diet * Pass a Stool * Avoid Aspirin and NSAIDs * Expected Course - Abdomen Pain * Reasons To Call Back - Severe pain lasts over 1 hour - Constant pain lasts over 2 hours - Intermittent pains (e.g., comes and goes, cramps) lasts over 48 hours - You become worse Arben Haro [facility] Clinical Support (supporting Silva Drake RN)25 minutes ago (9:49 AM) AC Still the same as they were in the hospital. The sharp pain in the epigastric region from time to time. She's seeing me in a week and a half; what can I do at home to reduce my numbers? MANPREET Ortega27 minutes ago (9:47 AM) Tin Theodore, Luis are scheduled for a hospital follow up with Dr. Dodge on 06/20 in office. Your hospital stay and course will be discussed along with any new medications that may have been prescribed. Are you having any symptoms? Silva Fernandez RN * Telephone Encounter - Carmelina Thornton - 05/31/2023 3:27 PM EDT Patient will recieve approval / denial letter via mail. PT-1 Request [id number] Pending . [facility] [address] [facility] [address] * Telephone Encounter - Toya Keyes - 05/31/2023 2:42 PM EDT Patient calling requesting PT1 Home Address verified: Y/N: Yes Provider name or facility name: [facility] Facility Address: [address] [place] [address] Escort needed: Y/N: No Do you have a wheelchair: Y/N: No If yes- Manual or electric: no Visits: 12 per year documented in this encounter Plan of Treatment Not on file documented as of this encounter Visit Diagnoses Not on filedocumented in this encounter Care Teams Supervisor Coating Relationship Specialty Start Date End Date Asha Dodge MD [address] [place] [address] PCP - General Family Medicine 12/29/22 documented as of this encounter
--- OUTSIDE RECORDS SUMMARY | 2024-05-02 18:04 | XMS_ITS | Encounter Summary ---
Author Organization [employer] Address [address] [place] [address] Care Team Providers Care Environmental Projects Advisor Name Role Phone Asha Dodge MD Primary Care Provider [phone] Reason for Visit * Reason Onset Date Comments PT-1 06/14/2023 Encounter Details Date Type Department Care Team ([facility] st Contact Info) Description 06/14/2023 Telephone [facility] [address] [place], [place] [phone] Asha Dodge MD [address] [place], [place] [phone] PT-1 Social History Tobacco Use Types Packs/Day [...] * Telephone Encounter - Carmelina Thornton - 06/23/2023 10:45 AM EDT Patient will recieve approval / denial letter via mail. PT-1 Request [id number] Pending [facility] Pt has active PT1 to [address] [place] [address] through 06/2024 * Telephone Encounter - Sean Espinal - 06/21/2023 1:54 PM EDT Tc from patient calling to request the status of PT-1 for upcoming appt on 06/22 * Telephone Encounter - Sean Espinal - 06/14/2023 2:09 PM EDT Patient calling requesting PT1 Home Address verified: Y/N: Yes Provider name or facility name: Dr. Dallin Andrews MD Facility Address: [address] [place] [address] Escort needed: Y/N: No Do you have a wheelchair: Y/N: No If yes- Manual or electric: no Visits: 4x a month Patient calling requesting PT1 Home Address verified: Y/N: Yes Provider name or facility name: [facility] Facility Address: [address] [place] [address] Escort needed: Y/N: No Do you have [...] documented as of this encounter Care Teams Environmental Projects Advisor Relationship Specialty Start Date End Date Asha Dodge MD [address] [place] [address] PCP - General Family Medicine 12/29/22 documented as of this encounter
--- OUTSIDE RECORDS SUMMARY | 2024-05-02 18:04 | XMS_ITS | Encounter Summary ---
Author Organization [employer] Address [address] [place] [address] Care Team Providers Care Warehouse Supervisor Name Role Phone Asha Dodge MD Primary Care Provider [phone] Reason for Visit * Reason Onset Date Comments Durable Medical Equipment 05/01/2024 DME Bl ood Pressure Monitor Encounter Details Date Type Department Care Team (Late st Contact Info) Description 05/01/2024 Telephone [facility] MEDICINE [address] [place], [place] [phone] Asha Dodge MD [address] [place], [place] [phone] Durable Medical Equipment (DME Blood Pressure Monitor) Social History Tobacco Use Types Packs/Day Years [...] encounter Miscellaneous Notes * Telephone Encounter - Sahara Herbert - 05/01/2024 11:12 AM EST DME RX for Blood Pressure Monitor generated and placed on providers desk for signature. documented in this encounter Plan of Treatment Not on file documented as of this encounter Visit Diagnoses Not on filedocumented in this encounter Additional Health Concerns Assessment Noted Time PHQ-9 Depression Total Score: 3 06/03/19 24 3:02 PM EDT documented as of this encounter Care Teams Warehouse Supervisor Relationship Specialty Start Date End Date Asha Dodge MD [address] [place] [address] PCP - General Family Medicine 12/29/22 documented as of this encounter
--- OUTSIDE RECORDS SUMMARY | 2024-05-02 18:04 | XMS_ITS | Clinical Summary ---
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 LORazepam (ATIVAN) 1 mg tablet Take 1 mg by mouth as needed. Active Gavilax powder Take 17 g by mouth once a day. Active Compression Stockings, Knee HighIndications :Bilateral leg edema 20-30 mmHg by Other route once a day. Wear during the day, every day, as directed. 2 pair 2 Active Additional Information Patient not taking.Reported on [...] Reports he has had difficulties getting to [facility] to get labs, will check his [...] He is getting care for hemochromatosis at [facility]. 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 - He will continue care at [facility]. If any further questions come up, he is welcome to come back again to see me. Encounters Date Type Department Care Team Description 03/16/2024 myChart Message [facility] [address] [place] [address] Zachariah Bianchi MD seeking melatonin test 03/16/2024 myChart Message [facility] [address] [place] [address] So Hall MD autonomic storming - sleep study 03/16/2024 Synlogichart Message [facility] [address] [place] [address] Sebastian Rachel MD at home sleep study 02/13/2024 2:30 PM EST Office Visit [facility] [address] [place] [phone] Sebastian Rachel MD Obstructive sleep apnea (Primary Dx); Other insomnia from Last 3 Months Family History Relation Name Status Comments Paternal Grandfather Social History Tobacco Use Types Packs/Day Years [...] Description 07/23/2024 11:30 AM EDT Office Visit [facility] [address] [place] [phone] Sebastian Rachel MD [address] [place] [phone] Scheduled Procedures Name Priority Associated Diagnoses Date/Ti me UPPER ENDOSCOPY WITH ENDOSCO PIC ULTRASOUND WITH POSSIBLE MODERATE SEDATION Elevated lipase Health Maintenance Due Date Last Done Comments Varicella Vaccines (1 of 2 - 13+ 2-dose series) 1998 Hepatitis B Vaccines (1 of 3 - 19+ 3-dose series) 2004 Pneumococcal Vaccine: Pediat arabella (0-5 Years) and At-Risk Patients (6-50 Years) (1 of 2 - PCV) 2004 COVID-19 Vaccine (2023-2 5 season) 2023 11/13/2021, 03/16/2021, 07/15/2020, Additional history exists Alcohol/Substance Use Screening 03/07/2024 Depression Screening and Follow-Up 03/07/2024 Social Drivers of Health Alessandra ual Screening 03/07/2024 DTaP,Tdap,and Td Vaccines (3 - Td or Tdap) 12/19/2032 12/19/2022, 06/14/2012 RSV Vaccine (60+ years old a nd patients) (1 - 1-dose 75+ series) 2060 HIV Screening Completed 07/20/2023 Hepatitis C Screening Completed 07/20/2023, 023 Influenza Vaccine Completed 11/30/2023, , 03/05/2019, Additional history exists Insurance [employer] [place] [id number] Care Teams Mapping Technician Relationship Specialty Start Date End Date Asha Dodge [address] [place] [address] PCP - General 07/15/23
--- OUTSIDE RECORDS SUMMARY | 2024-05-02 18:04 | XMS_ITS | Encounter Summary ---
Author Organization [employer] Address [address] 7[address] [place] [address] Care Team Providers Care Process Area Supervisor Name Role Phone Asha Dodge MD Primary Care Provider [phone] Reason for Visit * Reason Onset Date Comments PT1 03/27/2024 Encounter Details Date Type Department Care Team ([facility] st Contact Info) Description 03/27/2024 Telephone [facility] [address] [place], [place] [phone] Asha Dodge MD [address] [place], [place] [phone] PT1 Social History Tobacco Use Types Packs/Day [...] encounter Miscellaneous Notes * Telephone Encounter - Yessy Olvera - 04/03/2024 2:04 PM EST Tc from pt stating called to insurance and pt1 service was denied. Pt are requesting a call back toclarify what's going on. [phone] * Telephone Encounter - Fiorella Garcia - 03/27/2024 2:00 PM EST Patient calling requesting PT1 Home Address verified: Y/N: Yes Provider name or facility name: [facility] Facility Address: [address] [place] [address] Escort needed: Y/N: No Do you have a wheelchair: Y/N: No If yes- Manual or electric: Visits: 4 times a month for 12 months documented in this encounter Plan of Treatment Not on file documented as of this encounter Visit Diagnoses Not on filedocumented in this encounter Additional Health Concerns Assessment Noted Time PHQ-9 Depression Total Score: 3 06/03/19 24 3:02 PM EDT documented as of this encounter Care Teams Process Area Supervisor Relationship Specialty Start Date End Date Asha Dodge MD [address] [place] [address] PCP - General Family Medicine 12/29/22 documented as of this encounter
--- OUTSIDE RECORDS SUMMARY | 2024-05-02 18:04 | XMS_ITS | Encounter Summary ---
Author Organization [employer] Address [address] 7t [place] [address] Care Team Providers Care Lumber Chain Offbearer Name Role Phone Asha Dodge MD Primary Care Provider [phone] Encounter Details Date Type Department Care Team (Late st Contact Info) Description 07/20/2023 Orders Only [facility] [address] [place], [place] [phone] Asha Dodge MD [address] [place], [place] [phone] Frothy urine (Primary Dx) Social History Tobacco Use Types [...] Procedure Name Priority Date/Time Associated Diagnosis Comments URINALYSIS, COMPLETE, WITH REFLEX TO CULTURE Routine 07/20/2023 3:54 PM EDT Frothy urine documented in this encounter Results * Urinalysis, Complete, with Reflex to Culture (07/20/2023 3:54 PM EDT) Color Urine Yellow [facility] Appearance Urine Clear [facility] PH 7.5 5.0 - 9.0 [facility] Glucose Urine UA Negative Negative mg/dL [facility] Urine Blood Negative Negative [facility] Specific [place] - Urine <=1.005 1.005 - 1.025 [facility] Urine Protein Negative Neg-Trace mg/dL [facility] Urine Ketones Negative Negative mg/dL [facility] Nitrite Urine Negative Negative [facility] Leukocyte Esterase Urine Negative Negative [facility] RBC Urine 0-2 0 - 2 /HPF [facility] Urine WBC 0-5 0 - 5 /HPF [facility] Urine Squamous Epithelial Cell 0-2 0 - 2 /HPF [facility] Urine Bacteria None Seen None Seen [facility] Hyaline Casts, Urine 0-2 0 - 2 /LPF [facility] Urine 07/20/2023 3:54 PM EDT 07/20/2023 5:19 PM EDT Narrative [facility] - 07/20/2023 5:51 PM EDT Urine, Clean Catch us Asha Dodge MD LAB URINE ORDERABLES Final Res ult [facility] [address] [place] [address] [phone] documented in this encounter Visit Diagnoses Diagnosis Frothy urine- Primary documented in this encounter Additional Health Concerns Assessment Noted Time PHQ-9 Depression Total Score: 3 06/03/19 24 3:02 PM EDT documented as of this encounter Care Teams Lumber Chain Offbearer Relationship Specialty Start Date End Date Asha Dodge MD [address] [place] [address] PCP - General Family Medicine 12/29/22 documented as of this encounter
== END ==
LOC: HO.SL 14:38
PROVIDERS: PCP General Practice; Visit Provider Psychiatry & Neurology Sleep Medicine
DX: G47.33 Obstructive sleep apnea (adult) (pediatric) (principal); G47.09 Other insomnia
CPT/HCPCS: 95806

== ENCOUNTER → 2024-05-02 19:00 | Outpatient (BNV) | payer MEDICAID, SELFPAY | PROVIDERS: PCP General Practice; Visit Provider Internal Medicine | DX: G47.10 Hypersomnia, unspecified (principal); R06.83 Snoring | CPT/HCPCS: 95806 ==

== ENCOUNTER 2024-05-09 12:10 | Outpatient (REF) | payer MEDICAID, SELFPAY ==
--- OUTSIDE RECORDS SUMMARY | 2024-05-09 14:35 | XMS_ITS | Encounter Summary ---
Author Organization [employer] Address [address] 7t [place] [address] Care Team Providers Care Health Center Assistant Name Role Phone Asha Dodge MD Primary Care Provider Reason for Visit * Reason Onset Date Comments Results 12/21/2023 Encounter Details Date Type Department Care Team ([facility] st Contact Info) Description 12/21/2023 Telephone [facility] [address] [place], [place] [phone] Asha Dodge MD [address] [place], [place] [phone] Results Social History Tobacco Use Types Packs/Day [...] documented as of this encounter Care Teams Health Center Assistant Relationship Specialty Start Date End Date Asha Dodge MD [address] [place] [phone] PCP - General Family Medicine 12/29/22 documented as of this encounter
--- OUTSIDE RECORDS SUMMARY | 2024-05-09 14:35 | XMS_ITS | Encounter Summary ---
Author Organization [employer] Address [address] 7t [place] [address] Care Team Providers Care Supervisor Long Goods Name Role Phone Asha Dodge MD Primary Care Provider [phone] Encounter Details Date Type Department Care Team (Late st Contact Info) Description 07/20/2023 Orders Only [facility] [address] [place], [place] [phone] Asha Dodge MD [address] [place], [place] [phone] Frothy urine (Primary Dx) Social History Tobacco [...] (07/20/2023 3:54 PM EDT) Color Urine Yellow [facility] Appearance Urine Clear [facility] PH 7.5 5.0 - 9.0 [facility] Glucose Urine UA Negative Negative mg/dL [facility] Urine Blood Negative Negative [facility] Specific [place] - Urine <=1.005 1.005 - 1.025 [facility] Urine Protein Negative Neg-Trace mg/dL [facility] Urine Ketones Negative Negative mg/dL [facility] Nitrite Urine Negative Negative [facility] Leukocyte Esterase Urine Negative Negative [facility] RBC Urine 0-2 0 - 2 /HPF [facility] Urine WBC 0-5 0 - 5 /HPF [facility] Urine Squamous Epithelial Cell 0-2 0 - 2 /HPF [facility] Urine Bacteria None Seen None Seen [facility] Hyaline Casts, Urine 0-2 0 - 2 /LPF [facility] Urine 07/20/2023 3:54 PM EDT 07/20/2023 5:19 PM EDT Narrative [facility] - 07/20/2023 5:51 PM EDT Urine, Clean Catch us Asha Dodge MD LAB URINE ORDERABLES Final Res ult [facility] [address] [place] [address] [phone] documented in this encounter Visit Diagnoses Diagnosis Frothy urine- Primary documented in this encounter Additional Health Concerns Assessment Noted Time PHQ-9 Depression Total Score: 3 06/03/19 24 3:02 PM EDT documented as of this encounter Care Teams Supervisor Long Goods Relationship Specialty Start Date End Date Asha Dodge MD [address] [place] [address] PCP - General Family Medicine 12/29/22 documented as of this encounter
--- OUTSIDE RECORDS SUMMARY | 2024-05-09 14:35 | XMS_ITS | Encounter Summary ---
Author Organization [employer] Address [address] 7t [place] [address] Care Team Providers Care Patient Financial Services Manager Name Role Phone Asha Dodge MD Primary Care Provider [phone] Reason for Visit * Reason Onset Date Comments PT1 03/01/2024 Encounter Details Date Type Department Care Team ([facility] st Contact Info) Description 03/01/2024 Telephone [facility] [address] [place], [place] [phone] Asha Dodge MD [address] [place], [place] [phone] PT1 Social History Tobacco Use Types Packs/Day [...] Y/N: Yes Provider name or facility name: [facility] Facility Address: [address] [place] [address] Escort needed: Y/N: No Do you have a wheelchair: Y/N: No If yes- Manual or electric: n/a Visits: 1 a month Pt scheduled for appointment on March 08. [employer] advise will send message high priority documented in this encounter Plan of Treatment Not on file documented as of this encounter Visit Diagnoses Not on filedocumented in this encounter Additional Health Concerns Assessment Noted Time PHQ-9 Depression Total Score: 3 06/03/19 24 3:02 PM EDT documented as of this encounter Care Teams Patient Financial Services Manager Relationship Specialty Start Date End Date Asha Dodge MD [address] [place] [address] PCP - General Family Medicine 12/29/22 documented as of this encounter
--- OUTSIDE RECORDS SUMMARY | 2024-05-09 14:35 | XMS_ITS | Encounter Summary ---
Author Organization [employer] Address [address] [place] [address] Care Team Providers Care Chartered Wealth Manager Name Role Phone Asha Dodge MD Primary Care Provider [phone] Reason for Visit * Reason Onset Date Comments PT1 09/06/2023 Encounter Details Date Type Department Care Team ([facility] st Contact Info) Description 09/06/2023 Telephone [facility] MED[facility]INE [address] [place], [place] [phone] Asha Dodge MD [address] [place], [place] [phone] PT1 Social History Tobacco Use Types Packs/Day [...] Y/N: Yes Provider name or facility name: [facility] Facility Address: [address] [place] [address] Escort needed: Y/N: No Do you have [...] documented as of this encounter Care Teams Chartered Wealth Manager Relationship Specialty Start Date End Date Asha Dodge MD [address] [place] [address] PCP - General Family Medicine 12/29/22 documented as of this encounter
--- OUTSIDE RECORDS SUMMARY | 2024-05-09 14:35 | XMS_ITS | Encounter Summary ---
Author Organization [employer] Address [address] 7t [place] [address] Care Team Providers Care Human Resource Manager Name Role Phone Asha Dodge MD Primary Care Provider [phone] Reason for Visit * Reason Onset Date Comments PT1 11/21/2023 Encounter Details Date Type Department Care Team ([facility] st Contact Info) Description 11/21/[address] 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
--- OUTSIDE RECORDS SUMMARY | 2024-05-09 14:35 | XMS_ITS ---
Author Organization [facility] Address [address] [place], [place] [id number] Care Team Providers Care Mechanical Manufacturing Engineer Name Role Phone Eleonora Dillard Unavailable [phone] Sebastian Rachel Unavailable Unavailable REASON FOR VISIT T [facility] Encounters Encounter Location Date Provider Diagnosis [facility] [address] [place], [place] [phone] 02/17/2024 Crewsvamshi Dillard Plan Of Treatment No Information Progress Notes * Arben EMANUELDOB: [birth year] (38 yo M)Acc No.[id number]:02/17/2024 Patient:?Arben EMANUEL :1985???Age:38 Y???Sex:Male Address:[address], [place], [address] * true * Date:? Generated for Krystin nettles/Benjamin/eTransmitting on:?05/09/2024 09:20 AM EST
--- OUTSIDE RECORDS SUMMARY | 2024-05-09 14:35 | XMS_ITS | Encounter Summary ---
Author Organization [employer] Address [address] 7t [place] [address] Care Team Providers Care Band Master Name Role Phone Asha Dodge MD Primary Care Provider [phone] Reason for Visit * Reason Onset Date Comments PT1 07/15/2023 Encounter Details Date Type Department Care Team ([facility] st Contact Info) Description 07/15/2023 Telephone [facility] MED[facility]INE [address] [place], [place] [phone] Asha Dodge MD [address] [place], [place] [phone] PT1 Social History Tobacco Use Types Packs/Day [...] / denial letter via mail. PT-1 Request [id number] Pending - [facility] [address] * Telephone Encounter - Toya Keyes - 07/15/2023 4:17 PM EDT Patient calling requesting PT1 Home Address verified: Y/N: Yes Provider name or facility name: [facility] Facility Address: [address] [place] [address] Escort needed: Y/N: No Do you have [...] documented as of this encounter Care Teams Band Master Relationship Specialty Start Date End Date Asha Dodge MD [address] [place] [address] PCP - General Family Medicine 12/29/22 documented as of this encounter
--- OUTSIDE RECORDS SUMMARY | 2024-05-09 14:35 | XMS_ITS | Encounter Summary ---
Author Organization [employer] Address [address] 7t [place] [address] Care Team Providers Care Tester Compressed Gases Name Role Phone Asha Dodge MD Primary Care Provider [phone] Reason for Visit * Reason Onset Date Comments PT-1 06/14/2023 Encounter Details Date Type Department Care Team ([facility] st Contact Info) Description 06/14/2023 Telephone [facility] MEDICINE [address] [place], [place] [phone] Asha Dodge MD [address] [place], [place] [phone] PT-1 Social History Tobacco Use Types Packs/Day [...] / denial letter via mail. PT-1 Request [id number] Pending [facility] Pt has active PT1 to [address] [place] [address] through 06/2024 * Telephone Encounter - Sean Espinal - 06/21/2023 1:54 PM EDT Tc from patient calling to request the status of PT-1 for upcoming appt on 06/22 * Telephone Encounter - Sean Espinal - 06/14/2023 2:09 PM EDT Patient calling requesting PT1 Home Address verified: Y/N: Yes Provider name or facility name: Dr. Dallin Andrews MD Facility Address: [address] [place] [address] Escort needed: Y/N: No Do you have a wheelchair: Y/N: No If yes- Manual or electric: no Visits: 4x a month Patient calling requesting PT1 Home Address verified: Y/N: Yes Provider name or facility name: [facility] Facility Address: [address] [place] [address] Escort needed: Y/N: No Do you have [...] documented as of this encounter Care Teams Tester Compressed Gases Relationship Specialty Start Date End Date Asha Dodge MD [address] [place] [address] PCP - General Family Medicine 12/29/22 documented as of this encounter
--- OUTSIDE RECORDS SUMMARY | 2024-05-09 14:35 | XMS_ITS | Encounter Summary ---
Author Organization [employer] Address [address] 7t [place] [address] Care Team Providers Care Director Of Procurement Name Role Phone Asha Dodge MD Primary Care Provider [phone] Reason for Visit * Reason Onset Date Comments PT-1 11/09/2023 Encounter Details Date Type Department Care Team ([facility] st Contact Info) Description 11/09/2023 Telephone [facility] MEDICINE 230 [place], [place] [phone] Asha Dodge MD [address] [place], [place] [phone] PT-1 Social History Tobacco Use Types Packs/Day [...] or facility name: [facility] Facility Address: [address] [place] [address] Escort needed: Y/N: No Do you have [...] of this encounter Care Teams Director Of Procurement Relationship Specialty Start Date End Date Asha Dodge MD [address] [place] [address] PCP - General Family Medicine 12/29/22 documented as of this encounter
--- OUTSIDE RECORDS SUMMARY | 2024-05-09 14:35 | XMS_ITS | Encounter Summary ---
Author Organization [employer] Address [address] [place] [address] Care Team Providers Care Blintze Roller Name Role Phone Asha Dodge MD Primary Care Provider [phone] Reason for Visit * Reason Onset Date Comments Nurse Triage 08/08/2023 Encounter Details Date Type Department Care Team ([facility] st Contact Info) Description 08/08/2023 Telephone [facility] MEDICINE 230 [place], [place] [phone] Asha Dodge MD [address] [place], [place] [phone] Nurse Triage Social History Tobacco Use Types [...] documented as of this encounter Care Teams Blintze Roller Relationship Specialty Start Date End Date Asha Dodge MD [address] [place] [address] PCP - General Family Medicine 12/29/22 documented as of this encounter
--- OUTSIDE RECORDS SUMMARY | 2024-05-09 14:35 | XMS_ITS | Clinical Summary ---
Author Organization [employer] Address [address] [facility] [address] [place] [address] Care Team Providers Care Shovel Logger Name Role Phone Asha Dodge MD Primary Care Provider [phone] Allergies Active Allergy Reactions Criticality Noted Date Comments Wound Dressings 03/05/2022 Beta Adrenergic Blockers Palpitations Low 4 Side effect only/ dc'd Metronidazole Itching Low 03/05/2022 Fluorouracil Rash Low 04/08/2023 Wound Dressing Adhesive 06/18/2021 Other reaction(s): Unknown Medications polyethylene glycol, PEG, 3350 (Glycolax) 17 GM/SCOOP powderIndications :Constipation, unspecified constipation type Take 17 g by mouth Once per day. 510 g 1 4 Active fluticasone (Flonase) 50 MCG/ACT nasal spray Administer 1-2 sprays into each nostril Once per day. Shake gently. Before first use, prime pump. After use, clean tip and replace cap. 16 g 2 4 07/22/19 25 Active loratadine (Claritin) 10 MG tablet Take 1 tablet (10 mg) by mouth Once per day. 30 tablet 11 4 07/22/19 25 Active albuterol (ProAir HFA) 108 (90 Base) MCG/ACT inhaler Inhale 2 puffs every 6 (six) hours if needed for wheezing or shortness of breath. 18 g 4 Active lidocaine (Xylocaine) 5 % ointment Apply topically if needed for mild pain (prior to phlebotomy). 50 g 11 4 09/05/19 25 Active aluminum chloride (Drysol) 20 % external solutionIndicatio ns:Hyperhidrosis of feet Apply topically at bedtime. 60 mL 4 12/09/19 25 Active gabapentin (Neurontin) 100 MG capsule take 1 capsule by mouth at bedtime as needed for sleep 4 Active docusate sodium (Colace) 100 MG capsuleIndication s:Constipation, unspecified constipation type Take 1 capsule (100 mg) by mouth Once per day. 90 capsule 3 5 Active thiamine (Vitamin B-1) 100 MG tabletIndications :Seborrheic dermatitis Take 1 tablet (100 mg) by mouth Once per day. 90 tablet 3 5 Active Magnesium Oxide -Mg Supplement 500 MG capsule TAKE 1 TABLET (30 MG) BY MOUTH ONCE PER DAY. 30 capsule 11 5 Active LORazepam (Ativan) 0.5 MG tabletIndications :Anxiety Take 1 tablet (0.5 mg) by mouth if needed each day for anxiety for up to 10 days. 10 tablet 5 Active nystatin-triamcin olone (Mycolog II) ointment APPLY TO AFFECTED AREA TWICE A DAY 15 g 5 Active Active Problems Problem Noted Date Diagnosed [...] to household molds, prefer Dr Fields of [facility] Allergy 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 Overview (10/21/2023): [...] EDT): Gave phone number to referral to [facility] Assessment & Plan (06/06/2023 7:40 AM EDT): Refer to 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 Will also ask Aleksandra to schedule the visit in clinic after the imaging is here. Primary insomnia 03/22/2023 Assessment & Plan (03/22/2024 11:51 AM EST): Saw [facility] sleep med mobile sales consultant Awaiting sleep study Neither sleep doctor, nor I can order melatonin levels, I am not sure how this would assist or change treatment either Assessment & Plan (03/22/2023 12:51 PM EST): Its probably related to anxiety, exacerbated by new onset HTN? We discussed re fu with therapist [facility] For rx anxiety, sleep meds, [...] told him to fu with psychotherapist at [facility] for psychopharmacology evaluation. 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 Thyroid US was normal aside from a right sided nodule that was there for the past 2 years. He went to an wheel alignment mechanic who said he was unsure of reason [...] will schedule appointments accordingly. PLAN --follow-up with [facility] --Therapy session for neck pain -- Call or return to clinic prn if these symptoms worsen or fail to improve as anticipated. Resolved Problems Problem Noted Date Diagnosed Date Resolved Date Anxiety and depression 02/22/202403/22 Alport syndrome 02/22/2024 03/22/2024 Overview (03/22/2024): COL4A3 gene (c.1450G>A, p.Klm102Evq) for Alport syndrome. Left facial numbness 11/02/2022 [...] Reports he has had difficulties getting to [facility] to get labs, will check his labs. Abdominal pain 03/05/2022 03/17/2022 Assessment & Plan (03/05/2022 10:00 AM EST): Reports bloating and gas, feels left sided gas that radiates to his left shoulder, if we could have gas and diaphragmatic irritation, benign abd exam. He requested to be sent to [place] to GI, referral placed Dizziness 02/09/2022 03/22/2024 Mood disorder 07/26/2018 01/30/2023 Encounters Date Type Department Care Team Description 05/09/2024 11:30 AM EST Office Visit [facility] [address] [place] [phone] Asha Dodge MD Mild cognitive impairment (Primary Dx) 05/09/2024 Telephone [facility] [address] [place] [phone] Asha Dodge MD PT1 05/09/2024 Travel 05/07/[address] [address] Asha Dodge MD 05/01/[address] [address] Asha Dodge MD Durable Medical Equipment (DME Blood Pressure Monitor) 04/19/2024 Patient Outreach [address] [address] Asha Dodge MD Care Coordination (CHW outreach for SDOH PT-1 and food needs-referral completed /) 04/19/[address] [address] Asha Dodge MD PT1 04/11/[address] [address] Asha Dodge MD Referral 04/05/[address] [address] Asha Dodge MD 04/04/2024 Patient Outreach [address] [address] Asha Dodge MD Care Coordination (CHW outreach for SDOH PT-1 and food needs-LVM ) 03/29/[address] [address] Asha Dodge MD Nurse Triage 03/28/2024 3:15 PM EST Office Visit [address] [address] Asha Dodge MD 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) (Primary Dx); Thyroid nodule; Anxiety 03/28/2024 Refill [facility] [address] [place] [address] Asha Dodge MD 03/28/2024 Travel 03/28/2024 Telephone [facility] [address] [place] [address] Rosana Landeros MD Results 03/28/2024 Patient Outreach [address] [address] Asha Dodge MD Care Coordination (CHW outreach for SDOH PT_1 -referral completed /) 03/27/2024 Orders Only [facility] [address] [place] [address] Rosana Landeros MD Right thyroid nodule (Primary Dx) 03/27/[address] [address] Asha Dodge MD PT1 03/16/2024 11:30 AM EST Office Visit [address] [address] Asha Dodge MD Essential (primary) hypertension (Primary Dx); Dietary counseling; Exercise counseling; Overweight; Polycythemia vera (CMS/HCC); 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; Mild intermittent 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; Bilateral renal cysts; 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); Primary insomnia; Seborrheic dermatitis; Constipation, unspecified constipation type 03/16/2024 Travel 03/16/2024 Patient Outreach [address] [address] Asha Dodge MD Pre-visit Planning ((SDOH screening positive tobacco screening negative) ) 03/15/2024 Patient Outreach [address] [address] Asha Dodge MD Care Coordination (CHW outreach for SDOH PT-1 and food needs-referral completed /) 03/15/[address] [address] Asha Dodge MD PT-1 03/09/2024 Travel 03/02/2024 Patient Outreach [address] [address] Asha Dodge MD Care Coordination (CHW outreach for SDOH PT-1 - LVM ) 03/01/[address] [address] Asha Dodge MD PT1 02/28/[address] [address] Asha Dodge MD ER Follow-up 02/28/2024 Orders Only GENERIC EXTERNAL DATA DEPARTMENT Provider, Generic External Data 02/27/2024 Orders Only GENERIC EXTERNAL DATA DEPARTMENT Provider, Generic External Data 02/20/2024 6:20 PM EST Office Visit [facility] [address] [place] [address] Rosana Landeros MD Palpitations (Primary Dx); Other insomnia; Thyromegaly 02/20/2024 Travel 02/20/2024 Telephone [facility] [address] [place] [address] Asha Dodge MD 02/09/2024 Telephone [facility] [address] [place] [address] Asha Dodge MD Appointment Request from Last [...] Sign Reading Time Taken Comments Blood Pressure 148/97 05/09/2024 11:21 AM EST Pulse 87 05/09/2024 11:21 AM EST Temperature 36.3 ??C (97.3 ??F) 05/09/2024 11:[address] Respiratory Rate 18 05/09/2024 11:21 AM EST Oxygen Saturation 98% 03/28/2024 3:37 PM EST Inhaled Oxygen Concentration - - Weight 84.9 kg (187 lb 3.2 oz) 05/09/2024 11:21 AM EST Height 180.3 cm (5' 11 ) 05/09/2024 11:21 AM EST Body Mass Index 26.11 05/09/2024 11:21 AM EST Plan of Treatment Health Maintenance Due Date Last Done Comments Alcohol/Substance Use Screening 1997 Family Planning (PISQ) 2000 Hepatitis B Vaccines (1 of 3 - 19+ 3-dose series) 2004 Pneumococcal Vaccine: Pediatrics (0 to 5 Years) and At-Risk Patients (6 to 49) Years) (1 of 2 - PCV) 2004 HPV Vaccines (2 - 3-dose SCDM series) 12/15/2021 11/17/2021 COVID-19 Vaccine (5 - 2024-25 season) 2023 11/13/2021, 03/16/2021, 07/15/2020, Additional history exists Depression Screening 06/02/2024 06/03/2023, 06/03/19 SDOH Screening 03/16/2025 03/16/2024 Tobacco Screening 05/09/2025 05/09/2024 Lipid Panel 03/30/2028 03/30/2023, 12/07, 10/29/2021, Additional [...] Dimer High Sensitivity (02/28/2024 1:03 AM EST) D Dimer High Sensitivity 218 NG/ML [facility] Comment:D-DIMER HS REFERENCE RANGENote: Our assay [...] Provider LAB BLOOD ORDERAB LES Final Result [facility] [address] [place] [address] [phone] * High Sensitivity Troponin I (02/27/2024 11:47 PM EST) [facility] TROPONIN I HIGH SENSITIVITY <2.7 <3.5 - 35.0 ng/L [facility] Comment:The Baron high sens itivity Troponin-I results should beused in conjunction with other diagnostic information suchas ECG, clinical observations and information, and patientsymptoms to aid in the diagnosis of [place]. 02/27/2024 11:4 7 PM EST 02/27/2024 11:51 PM EST us Generic External Data Provider LAB BLOOD ORDERAB LES Final Result [facility] [address] [place] [address] [phone] * (ABNORMAL) CBC auto differential (02/27/2024 11:47 PM EST) Only the most recent of2 resultswithin the time period is included. [facility] White Blood Count 8.4 4.8 - 10.8 X10*3/uL [facility] Red Blood Count 5.50 4.60 - 5.80 X10*6/uL [facility] Hemoglobin 17.9 14.0 - 18.0 g/dl [facility] Hematocrit 49.0 42.0 - 52.0 % [facility] Mean Corpuscular Volume 89.1 80.0 - 98.0 fL [facility] Mean Corpuscular Hemoglobin 32.5 27.0 - 33.0 pg [facility] Mean Corpuscular HGB Conc 36.5(H) 31.0 - 36.0 g/dl [facility] Red Cell Distribution Width 11.6 11.0 - 16.0 % [facility] Platelet Count 211 160 - 400 X10*3/uL [facility] Mean Platelet Volume 9.5 9.4 - 12.4 fL [facility] Neutrophils Percent Auto 66.3 45 - 73 % [facility] Imm Gran Pct Auto 0.2 0.0 - 0.4 % [facility] Lymphocytes Percent Auto 23.2 20 - 40 % [facility] Monocytes Percent Auto 8.1 2 - 11 % [facility] Eosinophils Percent Auto 1.6 0 - 4 % [facility] Basophils Percent Auto 0.6 0 - 2 % [facility] NRBC Pct Auto 0.0 0.0 - 0.2 /100WBC [facility] Neutrophils Absolute Auto 5.6 2.0 - 8.3 x10*3/uL [facility] Imm Gran Abs Auto 0.02 0.00 - 0.03 X10*3/uL [facility] Lymphocytes Absolute Auto 1.9 1.2 - 4.9 X10*3/uL [facility] Monocytes Absolute Auto 0.7 0.1 - 1.2 X10*3/uL [facility] Eosinophils Absolute Auto 0.1 0.0 - 0.4 X10*3/uL [facility] Basophils Absolute Auto 0.1 0.0 - 0.2 X10*3/uL [facility] NRBC Abs Auto 0.000 0.0 - 0.012 X10*3/uL [facility] 02/27/2024 11:4 7 PM EST 02/27/2024 11:51 PM EST us Generic External Data Provider LAB BLOOD ORDERAB LES Final Result [facility] [address] [place] [phone] * (ABNORMAL) Basic Metabolic Panel (02/27/2024 11:47 PM EST) Only the most recent of2 resultswithin the time period is included. Sodium 139 135 - 145 mmol/L [facility] Potassium 3.6 3.3 - 5.1 mmol/L [facility] Comment:Slight Hemolysis.Int erpret result with caution. Chloride 108 96 - 108 mmol/L [facility] Carbon Dioxide 22 22 - 29 mmol/L [facility] Anion Gap 13 12 - 20 [facility] Urea Nitrogen (BUN) 12 9 - 16 mg/dL [facility] Creatinine, Serum 0.85 0.5 - 1.4 mg/dL [facility] Creatinine Clr Calc Pharmacy 125.5 [facility] Comment:eGFR (calculated fro m the MDRD study equation) and eCrCl(calculated from the Cockcroft-Gault equation) are based ondifferent parameters and may not yield comparable results.If eCrCl result is absurd, please check patient'sheight/weight. Estimated Glomerular Filt Rate >60 [facility] Comment:Chronic Kidney Disea se: Estimated GFR < 60 mL/min/1.77b4Yqerfl Kidney Disease: Estimated GFR < 15 mL/min/1.73m2 Glucose 122(H) 60 - 115 mg/dL [facility] Calcium 9.4 8.4 - 10.2 mg/dL [facility] 02/27/2024 11:4 7 PM EST 02/27/2024 11:51 PM EST us Generic External Data Provider LAB BLOOD ORDERAB LES Final Result Performing Organization Address City/State/[facility] Co de Phone Number [facility] [address] [place] [phone] * US Thyroid (02/24/2024 2:09 PM EST) Anatomical Region Laterality Modality Head, Neck Ultrasound 02/24/2024 2:09 PM EST Narrative 03/26/2024 6:23 AM EST ? [facility] ?[address] ? [place] [address] ? Ultrasound Report ? Signed ? Patient: Adelfo,Arben ?MR#: [id number] ?? [id number] ? : 1985 ?Acct:[id number] ? Age/Sex: 38 / M ?ADM Date: 12/20/24 ? Loc: HO.HMGCX ? Attending Dr: Rosana Landeros MD ? Ordering Physician: Rosana Landeros MD ?? Date of Service: 02/24/24 ?? Procedure(s): US thyroid ?? Accession Number(s): [id number] ? cc: Rosana Landeros MD; Asha Dodge [...] or equal to 1 cm: 1. ?? Rice Dryer Mechanic nodules are described as follows: ? 1. [...] by Maxine Kaufman MD in OV> ? 03/26/24 0619 ? DD/ 1409 ? TD/TT: 02/24/24 1415 ? Director Cpg: ? Procedure Note Donotuseinterpreter, Image - 03/26/2024 [facility] [address] [place] [address] [place] [address] Ultrasound Report Signed Patient: Aung EmanuelR#: [id number] : 1985Acct:[id number] Age/Sex: 38 / MADM Date: 02/24/24 Loc: HO.HMGCX Attending Dr: Rosana Landeros MD Ordering Physician: Rosana Landeros MD Date of Service: 02/24/24 Procedure(s): US thyroid Accession Number(s): [id number] cc: Rosana Landeros MD; Asha Dodge EXAMINATION: [...] than or equal to 1 cm: 1. Rice Dryer Mechanic nodules are described as follows: 1. Location: [...] Maxine Kaufman MD 03/26/2024 06:19 AM EST Dictated By: Maxine Kaufman MD Signed By: <Electronically signed by Maxine Kaufman MD in OV> 03/26/24 0619 DD/ 1409 TD/TT: 02/24/24 1415 Director Cpg: us Rosana Landeros MD IMG US PROCEDURES Final Res ult * TSH W/Reflex to FT4 (02/24/2024 2:05 PM EST) TSH reflex Free T4 2.97 0.32 - 4.0 uIU/mL [facility] Blood Venous blood specimen / Unknown 02/24/2024 2:05 PM EST 02/24/2024 4:07 PM EST us Rosana Landeros MD LAB BLOOD ORDERABLES Final Result [facility] [address] [place] [phone] * Magnesium (02/24/2024 2:05 PM EST) Magnesium 2.3 1.6 - 2.6 mg/dL [facility] Blood Venous blood specimen / Unknown 02/24/2024 2:05 PM EST 02/24/2024 4:07 PM EST us Rosana Landeros MD LAB BLOOD ORDERABLES Final Result Performing Organization Address [facility] Co de Phone Number [facility] [address] [place] [phone] * ECG 12 lead (02/20/2024 6:59 [...] PM EDT) Hepatitis C Antibody Nonreactive Nonreactive [facility] Comment:Antibodies to HCV no t detected; does not exclude early acuteHCV infection. Blood Venous blood specimen / Unknown 07/20/2023 3:54 PM EDT 07/20/2023 5:41 PM EDT us Asha Dodge MD LAB BLOOD ORDERABLES Final Res ult Performing Organization Address [facility] Co de Phone Number [facility] [address] [place] [phone] * HIV-1/2 Antigen and Antibodies, Fourth Generation, with Reflexes (07/20/2023 3:54 PM EDT) HIV AB/AG Nonreactive Nonreactive [facility] Comment:HIV-1 p24 Ag and/or HIV-1/HIV-2 Ab not detected.A test result that is nonreactive does not exclude thepossibility of exposure to or infection with HIV-1 and/orHIV-2. Nonreactive results in this assay for individualswith prior exposure to HIV-1 and/or HIV-2 may be due toantigen and antibody levels that are below the limit ofdetection of this assay.The j-GrabTaDaweb HIV Ag/Ab Combo assay result andsupplemental assay results should be interpreted inconjunction with the patient's clinical presentation,history and other laboratory results. If the results areinconsistent with clinical evidence, additional testing issuggested to confirm the result. Blood Venous blood specimen / Unknown 07/20/2023 3:54 PM EDT 07/20/2023 5:41 PM EDT us Asha Dodge MD LAB BLOOD ORDERABLES Final Res ult Performing Organization Address City/[facility]/ZIP Co de Phone Number [facility] [address] [place] [address] [phone] * (ABNORMAL) Lipid Panel, Standard (03/30/2023 9:57 AM EST) Triglycerides 78 <150 mg/dL [facility] Comment:Desirable Triglyceri de: less than 150 mg/dLBorderline High Triglyceride 150-199 mg/dLHigh Triglyceride: 200-499 mg/dLVery High Triglyceride: greater than or equal to 5OO mg/dL Cholesterol 168 <200 mg/dL [facility] Comment:Desirable Cholestero l: less than 200 mg/dLBorderline High Cholesterol: 200-239 mg/dLHigh Cholesterol: greater than 239 mg/dL LDL Cholesterol Calculated 118(H) <100 mg/dL [facility] Comment:Desirable LDL: less than 100 mg/dLNear Optimal/Above Optimal LDL: 110- 129 mg/dLBorderline High LDL: 130-159 mg/dLHigh LDL: 160-189 mg/dLVery High LDL: greater than or equal to 190 mg/dL HDL Cholesterol 35(L) >40 mg/dL [facility] Comment:Desirable HDL: great er than 40 mg/dL Note: This HDL assay may give artificially low results in patients with liver disease. 03/30/2023 9:57 AM EST 03/30/2023 1:35 PM EST us Generic External Data Provider LAB BLOOD ORDERAB LES Final Result [facility] [address] [place] [phone] from Last 3 Months or Most Recently Relevant to Health Maintenance Insurance [facility] C3 Care Teams Shovel Logger Relationship Specialty Start Date End Date Asha Dodge MD [address] [place] [phone] PCP - General Family Medicine 12/29/22
--- OUTSIDE RECORDS SUMMARY | 2024-05-09 14:35 | XMS_ITS | Encounter Summary ---
Author Organization [employer] Address [address] [place] [address] Care Team Providers Care Cylinder Grinder Name Role Phone Asha Dodge MD Primary Care Provider [phone] Encounter Details Date Type Department Care Team (Late st Contact Info) Description 08/31/2023 Orders Only [facility] [address] [place], [place] [phone] Asha Dodge MD [address] [place], [place] [phone] Hemochromatosis associated with mutation in HFE gene [...] EDT) Iron 271(H) 45 - 160 mcg/dL [facility] Total Iron Binding Capacity 296 228 - 428 mcg/dL [facility] Percent Iron Saturation 92(H) 15 - 50 % [facility] Unsaturated Iron Binding <25 ug/dL [facility] Blood Venous blood specimen / Unknown 09/20/2023 3:49 PM EDT 09/20/2023 5:20 PM EDT us Asha Dodge MD LAB BLOOD ORDERABLES Final Res ult [facility] [address] [place] [phone] documented in this encounter Visit Diagnoses Diagnosis 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)- Primary documented in this encounter Additional Health Concerns Assessment Noted Time PHQ-9 Depression Total Score: 3 06/03/19 24 3:02 PM EDT documented as of this encounter Care Teams Cylinder Grinder Relationship Specialty Start Date End Date Asha Dodge MD [address] [place] [address] PCP - General Family Medicine 12/29/22 documented as of this encounter
--- OUTSIDE RECORDS SUMMARY | 2024-05-09 14:35 | XMS_ITS | Encounter Summary ---
Author Organization [employer] Address [address] [place] [address] Care Team Providers Care Tugboat Mate Name Role Phone Asha Dodge MD Primary Care Provider [phone] Reason for Visit * Reason Onset Date Comments PT-1 09/05/2023 Encounter Details Date Type Department Care Team ([facility] st Contact Info) Description 09/05/2023 Telephone [facility] [address] [place], [place] [phone] Asha Dodge MD [address] [place], [place] [phone] PT-1 Social History Tobacco Use Types Packs/Day [...] Y/N: Yes Provider name or facility name: [facility] Facility Address: [address] [place] [address] Escort needed: Y/N: No Do you have [...] documented as of this encounter Care Teams Tugboat Mate Relationship Specialty Start Date End Date Asha Dodge MD [address] [place] [phone] PCP - General Family Medicine 12/29/22 documented as of this encounter
--- OUTSIDE RECORDS SUMMARY | 2024-05-09 14:35 | XMS_ITS | Patient Health Record ---
Author Organization [facility] Address [address] [place], [place] [id number] Care Team Providers Care Ham Sawyer Name Role Phone Elizabeth Dillardafa Unavailable [phone] Sebastian Rachel Unavailable Unavailable Reason For Referral No Information Encounters Encounter Location Date Provider Diagnosis [facility] - [facility] [address] [facility] [address] [place], [place] [phone] 02/17/2024 Crewskim Dillard Plan Of Treatment No Information Insurance Providers Payer Name Payer Address Payer Phone Subscriber Number Group Number Insured Name Patient Relationship to Insured Coverage Start Date Coverage End Date Medicaid Community [facility] [employer] [address] [place] [id number] Arben Emanuel Self - patient is the insured
--- OUTSIDE RECORDS SUMMARY | 2024-05-09 14:35 | XMS_ITS | Encounter Summary ---
Author Organization [employer] Address [address] [facility] 7t [place] [address] Care Team Providers Care Layout Technician Name Role Phone Asha Dodge MD Primary Care Provider [phone] Encounter Details Date Type Department Care Team ([facility] st Contact Info) Description 12/02/2022 Orders Only [facility] MED & PEDS [address] [place], [place] [phone] Kaylie Cardona MD [address] [place] [address] Memory loss (Primary Dx) Social History Tobacco [...] Primary documented in this encounter Care Teams Layout Technician Relationship Specialty Start Date End Date Asha Dodge MD [address] [place] [address] PCP - General Family Medicine 12/29/22 documented as of this encounter
--- OUTSIDE RECORDS SUMMARY | 2024-05-09 14:35 | XMS_ITS | Encounter Summary ---
Author Organization [employer] Address [address] 7t [place] [address] Care Team Providers Care Dewaterer Operator Name Role Phone Asha Dodge MD Primary Care Provider [phone] Reason for Referral * Consultation (Routine) - Canceled Specialty Diagnoses / Procedures Referred By Contac t Referred To Contact Orthopaedic Surgery Diagnoses Left hip pain Asha Dodge MD [address] [place] [address] Phone: tel: fax: [facility] Orthopedics, Sports Medicine & Surgery (Ambulatory Center) [address] [place] [address] Phone: tel: fax: Referral ID Status Reason Start Date Expiration Date Visits Requested Visits Authorized [id number] Canceled Specialty Services Required 11/09/2023 11/08/2024 1 0 Encounter Details Date Type Department Care Team (Late st Contact Info) Description 11/09/2023 Orders Only [facility] MEDICINE [address] [place] [address] [phone] Asha Dodge MD [address] [place] [address] [phone] Left hip pain (Primary Dx) Social History [...] documented as of this encounter Care Teams Dewaterer Operator Relationship Specialty Start Date End Date Asha Dodge MD [address] [place] [address] PCP - General Family Medicine 12/29/22 documented as of this encounter
--- OUTSIDE RECORDS SUMMARY | 2024-05-09 14:35 | XMS_ITS | Encounter Summary ---
Author Organization [employer] Address [address] [facility] [address] 7t [place] [address] Care Team Providers Care Supervisor Chlorine Liquefaction Name Role Phone Asha Dodge MD Primary Care Provider [phone] Encounter Details Date Type Department Care Team (Late st Contact Info) Description 12/02/2023 Orders Only [facility] MEDICINE [address] [place], [place] [phone] Asha Dodge MD [address] [place], [place] [phone] Social History Tobacco Use Types Packs/Day Years [...] Adult Primary Care ?[address] ? [place] [address] ? Ultrasound Report ? Signed ? Patient: Arben Emanuel ?MR#: [id number] ?? [id number] ? : 1985 ?Acct:[id number] ? Age/Sex: 38 / M ?ADM Date: 12/21/23 ? Loc: HO.HMGCX ? Attending Dr: Marco Spears MD ? Ordering Physician: Marco Spears MD ?? Date of Service: 12/21/23 ?? Procedure(s): US SMA ?? Accession Number(s): [id number] ? cc: Marco Spears MD; Asha Dodge [...] DD/ 0903 ? TD/TT: 12/21/23 0930 ? Vessel Slag Worker: SS ? Procedure Note Leif Rust - 12/23/2023 [facility] Adult Primary Care [address] [place] [address] Dr. Damon, WOLF [address] Ultrasound Report Signed Patient: Landen EmanuelonyMR#: [id number] : 1985Acct:[id number] Age/Sex: 38 / MADM Date: 12/21/23 Loc: HO.HMGCX Attending Dr: Marco Spears MD Ordering Physician: Marco Spears MD Date of Service: 12/21/23 Procedure(s): [facility] Accession Number(s): [id number] cc: Marco Spears MD; Asha Dodge EXAMINATION: [...] OV> 12/23/23 1621 DD/ 0903 TD/TT: 12/21/23929 Vessel Slag Worker: MANE [facility] External Provider IMG US PROCEDURES Final Result documented in this encounter Visit Diagnoses Not on filedocumented in this encounter Additional Health Concerns Assessment Noted Time PHQ-9 Depression Total Score: 3 06/03/19 24 3:02 PM EDT documented as of this encounter Care Teams Supervisor Chlorine Liquefaction Relationship Specialty Start Date End Date Asha Dodge MD [address] [place] [address] PCP - General Family Medicine 12/29/22 documented as of this encounter
--- OUTSIDE RECORDS SUMMARY | 2024-05-09 14:35 | XMS_ITS | Encounter Summary ---
Author Organization [employer] Address [address] 7t [place] [address] Care Team Providers Care Cdl Instructor Name Role Phone Asha Dodge MD Primary Care Provider [phone] Reason for Visit * Reason Onset Date Comments PT-1 03/15/2024 Encounter Details Date Type Department Care Team ([facility] st Contact Info) Description 03/15/2024 Telephone [facility] MEDICINE [address] [place], [place] [phone] Asha Dodge MD [address] [place], [place] [phone] PT-1 Social History Tobacco Use Types Packs/Day [...] Y/N: Yes Provider name or facility name: [facility] [address] [place] [address] Escort needed: Y/N: No Do you have a wheelchair: Y/N: No Visits: (2) ( x monthly ) documented in this encounter Plan of Treatment Not on file documented as of this encounter Visit Diagnoses Not on filedocumented in this encounter Additional Health Concerns Assessment Noted Time PHQ-9 Depression Total Score: 3 06/03/19 24 3:02 PM EDT documented as of this encounter Care Teams Cdl Instructor Relationship Specialty Start Date End Date Asha Dodge MD [address] [place] [address] PCP - General Family Medicine 12/29/22 documented as of this encounter
--- OUTSIDE RECORDS SUMMARY | 2024-05-09 14:35 | XMS_ITS | Encounter Summary ---
Author Organization [employer] Address [address] 7t [place] [address] Care Team Providers Care Pulp Roller Name Role Phone Asha Dodge MD Primary Care Provider [phone] Reason for Visit * Reason Onset Date Comments PT1 05/31/2023 Encounter Details Date Type Department Care Team ([facility] st Contact Info) Description 05/31/2023 Telephone [facility] MEDICINE [address] [place], [place] [phone] Asha Dodge MD [address] [place], [place] [phone] PT1 Social History Tobacco Use Types Packs/Day [...] hours - You become worse Arben Haro [facility] Clinical Support (supporting Silva Drake RN)25 [...] / denial letter via mail. PT-1 Request [id number] Pending . [facility] [address] [employer] [address] * Telephone Encounter - Toya Keyes - 05/31/2023 2:42 PM EDT Patient calling requesting PT1 Home Address verified: Y/N: Yes Provider name or facility name: [facility] Facility Address: [address] [place] [address] Escort needed: Y/N: No Do you have a wheelchair: Y/N: No If yes- Manual or electric: no Visits: 12 per year documented in this encounter Plan of Treatment Not on file documented as of this encounter Visit Diagnoses Not on filedocumented in this encounter Care Teams Pulp Roller Relationship Specialty Start Date End Date Asha Dodge MD [address] [place] [address] PCP - General Family Medicine 12/29/22 documented as of this encounter
--- OUTSIDE RECORDS SUMMARY | 2024-05-09 14:35 | XMS_ITS | Encounter Summary ---
Author Organization [employer] Address [address] 7t [place] [address] Care Team Providers Care Trademark Affixer Name Role Phone Asha Dodge MD Primary Care Provider [phone] Reason for Visit * Reason Onset Date Comments PT1 12/13/2023 Encounter Details Date Type Department Care Team ([facility] st Contact Info) Description 12/13/2023 Telephone [facility] MEDICINE [address] [place], [place] [phone] Asha Dodge MD [address] [place], [place] [phone] PT1 Social History Tobacco Use Types Packs/Day [...] Y/N: Yes Provider name or facility name: [facility] Address: [address] [place] [address] [place] [address] Escort needed: Y/N: Yes Do you have [...] documented as of this encounter Care Teams Trademark Affixer Relationship Specialty Start Date End Date Asha Dodge MD [address] [place] [address] PCP - General Family Medicine 12/29/22 documented as of this encounter
--- OUTSIDE RECORDS SUMMARY | 2024-05-09 14:35 | XMS_ITS | Encounter Summary ---
Author Organization [employer] Address [address] 7t [place] [address] Care Team Providers Care Temper Mill Roller Name Role Phone Asha Dodge MD Primary Care Provider [phone] Encounter Details Date Type Department Care Team (Late st Contact Info) Description 04/21/2022 Orders Only [facility] MEDICINE [address] [place] [address] Kaylie Cardona MD [address] [place] [address] Hemochromatosis, unspecified hemochromatosis type (Primary Dx) Social [...] SENSITIVITY TROPONIN I (05/02/2022 9:18 PM EST) [facility] TROPONIN I HIGH SENSITIVITY <3.5 <3.5 - 35.0 ng/L [facility] Comment:The Baron high sens itivity Troponin-I results should beused in conjunction with other diagnostic information suchas ECG, clinical observations and information, and patientsymptoms to aid in the diagnosis of DE. 05/02/2022 9:18 PM EST 05/02/2022 9:21 PM EST [facility] External Provider LAB BLO OD ORDERABLES Final Result Performing Organization Address City/[facility]/ZIP Co de Phone Number [facility] [address] [place] [phone] * Lipase (05/02/2022 9:18 PM EST) [facility] Lipase 35 8 - 78 U/L [facility] 05/02/2022 9:18 PM EST 05/02/2022 9:21 PM EST [facility] External Provider LAB BLO OD ORDERABLES Final Result Performing Organization Address [facility] Co de Phone Number [facility] [address] [place] [phone] * Comprehensive Metabolic Panel (05/02/2022 9:18 PM EST) [facility] Sodium 141 135 - 145 mmol/L [facility] Potassium 4.2 3.3 - 5.1 mmol/L [facility] Chloride 103 96 - 108 mmol/L [facility] Carbon Dioxide 27 22 - 29 mmol/L [facility] Anion Gap 15 12 - 20 [facility] Urea Nitrogen (BUN) 12 9 - 16 mg/dL [facility] Creatinine, Serum 1.04 0.5 - 1.4 mg/dL [facility] Creatinine Clr Calc Pharmacy 114.4 [facility] Comment:eGFR (calculated fro m the MDRD study equation) and eCrCl(calculated from the Cockcroft-Gault equation) are based ondifferent parameters and may not yield comparable results.If eCrCl result is absurd, please check patient'sheight/weight. Estimated Glomerular Filt Rate >60 [facility] Comment:NOTE: For -Am erican individuals, multiply the result by 1.210.Chronic Kidney Disease: Estimated GFR < 60 mL/min/1.72q1Jxygod Kidney Disease: Estimated GFR < 15 mL/min/1.73m2 Glucose 96 60 - 115 mg/dL [facility] Calcium 9.7 8.4 - 10.2 mg/dL [facility] Bilirubin, Total 0.8 0.0 - 1.0 mg/dL [facility] Aspartate Amino Transferase 20 5 - 37 U/L [facility] Alanine Aminotransferase 31 0 - 40 U/L [facility] Total Protein 7.3 6.5 - 8.0 g/dL [facility] Albumin Level 4.4 3.5 - 5.0 g/dL [facility] Alkaline Phosphatase 81 39 - 117 U/L [facility] 05/02/2022 9:18 PM EST 05/02/2022 9:21 PM EST us [facility] External Provider LAB BLO OD ORDERABLES Final Result [facility] [address] [place] [address] [phone] * (ABNORMAL) CBC auto differential (05/02/2022 9:18 PM EST) White Blood Count 8.8 4.8 - 10.8 X10*3/uL [facility] Red Blood Count 5.81(H) 4.60 - 5.80 X10*6/uL [facility] Hemoglobin 18.7(H) 14.0 - 18.0 g/dl [facility] Hematocrit 51.7 42.0 - 52.0 % [facility] Mean Corpuscular Volume 89.0 80.0 - 98.0 fL [facility] Mean Corpuscular Hemoglobin 32.2 27.0 - 33.0 pg [facility] Mean Corpuscular HGB Conc 36.2(H) 31.0 - 36.0 g/dl [facility] Red Cell Distribution Width 11.8 11.0 - 16.0 % [facility] Platelet Count 258 160 - 400 X10*3/uL [facility] Mean Platelet Volume 9.2(L) 9.4 - 12.4 fL [facility] Neutrophils Percent Auto 69.4 45 - 73 % [facility] Imm Gran Pct Auto 0.1 0.0 - 0.4 % [facility] Lymphocytes Percent Auto 22.1 20 - 40 % [facility] Monocytes Percent Auto 6.1 2 - 11 % [facility] Eosinophils Percent Auto 1.5 0 - 4 % [facility] Basophils Percent Auto 0.8 0 - 2 % [facility] NRBC Pct Auto 0.0 0.0 - 0.2 /100WBC [facility] Neutrophils Absolute Auto 6.1 2.0 - 8.3 x10*3/uL [facility] Imm Gran Abs Auto 0.01 0.00 - 0.03 X10*3/uL [facility] Lymphocytes Absolute Auto 1.9 1.2 - 4.9 X10*3/uL [facility] Monocytes Absolute Auto 0.5 0.1 - 1.2 X10*3/uL [facility] Eosinophils Absolute Auto 0.1 0.0 - 0.4 X10*3/uL [facility] Basophils Absolute Auto 0.1 0.0 - 0.2 X10*3/uL [facility] NRBC Abs Auto 0.000 0.0 - 0.012 X10*3/uL [facility] 05/02/2022 9:18 PM EST 05/02/2022 9:21 PM EST [facility] External Provider LAB BLO OD ORDERABLES Final Result [facility] [address] [place] [phone] [phone] documented in this encounter Visit Diagnoses Diagnosis Hemochromatosis, unspecified hemochromatosis type- Primary documented in this encounter Care Teams Temper Mill Roller Relationship Specialty Start Date End Date Asha Dodge MD [address] [place] [address] PCP - General Family Medicine 12/29/22 documented as of this encounter
--- OUTSIDE RECORDS SUMMARY | 2024-05-09 14:36 | XMS_ITS | Encounter Summary ---
Author Organization [employer] Address [address] 7t [place] [address] Care Team Providers Care Sonar Subsystem Equipment Operator Name Role Phone Asha Dodge MD Primary Care Provider [phone] Encounter Details Date Type Department Care Team (Late st Contact Info) Description 03/21/2023 Orders Only [facility] [address] [place], [place] [phone] Doug Quintana MD [address] [place], [place] [phone] Social History Tobacco Use Types Packs/Day Years [...] on filedocumented in this encounter Care Teams Sonar Subsystem Equipment Operator Relationship Specialty Start Date End Date Asha Dodge MD [address] [place], [place] [phone] PCP - General Family Medicine 12/29/22 documented as of this encounter
--- OUTSIDE RECORDS SUMMARY | 2024-05-09 14:36 | XMS_ITS | Encounter Summary ---
Author Organization [employer] Address [address] 7t [place] [address] Care Team Providers Care Lithography Contact Worker Name Role Phone Asha Dodge MD Primary Care Provider [phone] Encounter Details Date Type Department Care Team (Latest Contact Info) Description 05/09/2024 Travel Social History Tobacco Use Types Packs/Day Years [...] housing situation today? I have brianna sing 03/16/[address] you li [...] documented as of this encounter Care Teams Lithography Contact Worker Relationship Specialty Start Date End Date Asha Dodge MD [address] [place] [address] PCP - General Family Medicine 12/29/22 documented as of this encounter
--- OUTSIDE RECORDS SUMMARY | 2024-05-09 14:36 | XMS_ITS | Encounter Summary ---
Author Organization [employer] Address [address] 7t [place] [address] Care Team Providers Care Applied Marine Physics Professor Name Role Phone Asha Dodge MD Primary Care Provider [phone] Reason for Visit * Reason Onset Date Comments Referral 04/11/2024 Encounter Details Date Type Department Care Team ([facility] st Contact Info) Description 04/11/2024 Telephone [facility] MEDICINE [address] [place], [place] [phone] Asha Dodge MD [address] [place], [place] [phone] Referral Social History Tobacco Use Types Packs/Day [...] 9:49 AM EST TC returned to Yasmeen [phone] in regards to below message. Yasmeen reports she is affiliated with [facility] neurology and the provider Dr. Eddi Rachel ordered a sleep study which is [place] for [place]02/24 at [facility] [facility] neurology reports they were informed [facility] needs a referral from PCP office for sleep study. RN called [facility] at [phone] to inquire on what is needed from PCP office. RN was informed [facility] needs a [facility] PCC referral (R #). Please submit to [facility]. Thank you! * Telephone Encounter - Yessy Olvera - 04/12/2024 9:29 AM EST Tc from Yasmeen stating received a call from nurses. [phone] * Telephone Encounter - Thony Rosenberg - 04/11/2024 3:29 PM EST TC from Yasmeen with [facility] Neurology reports pt is scheduled for a Sleep study at [facility] on 05/02/24. [facility] is requesting a referral from PCP . documented in this encounter Plan of Treatment Not on file documented as of this encounter Visit Diagnoses Not on filedocumented in this encounter Additional Health Concerns Assessment Noted Time PHQ-9 Depression Total Score: 3 06/03/19 24 3:02 PM EDT documented as of this encounter Care Teams Applied Marine Physics Professor Relationship Specialty Start Date End Date Asha Dodge MD [address] [place] [address] PCP - General Family Medicine 12/29/22 documented as of this encounter
--- OUTSIDE RECORDS SUMMARY | 2024-05-09 14:36 | XMS_ITS | Clinical Summary ---
Author Organization [facility] Address [address] [place] [address] Phone Care Team Providers Care Weekend Anchor Name Role Phone Kaylie Cardona MD Primary Care Provider [phone] Allergies No known active allergies Medications omeprazole [...] (#1) 2023 , 03/05/2019, 12/24/2016 Insurance [place] [address] [place] [id number] [place] Care Teams Weekend Anchor Relationship Specialty Start Date End Date Kaylie Cardona MD PCP - General Family Medicine 05/04/22
--- OUTSIDE RECORDS SUMMARY | 2024-05-09 14:36 | XMS_ITS | Encounter Summary ---
Author Organization [employer] Address [address] 7t [place] [address] Care Team Providers Care Research Geneticist Name Role Phone Asha Dodge MD Primary Care Provider [phone] Encounter Details Date Type Department Care Team (Late st Contact Info) Description 05/07/[address] [facility] MEDICINE [address] [place], [place] [phone] Asha Dodge MD [address] [place], [place] [phone] Social History Tobacco Use Types Packs/Day Years [...] encounter Miscellaneous Notes * Telephone Encounter - Connie Gary RN - 05/07/2024 12:07 PM EST Called pt. RE: Incoming pt. Portal message of Forgetfulness. Pt. States that he has been very forgetful lately and last week her left boiling water on the stove and forgot that he was boiling water. Pt states no fire and no harm done but I want to get a handle on this forgetfulness and I'm not sure what is going on and why this is happening . Protocol Used: No Protocol Available (Adult) Protocol-Based Disposition: See in Office or Video Visit within 2 Weeks- appt. 05/09/24 at 1130am. Video visit not offered Positive Triage Question: * Nursing judgment * All higher-acuity triage questions were negative documented in this encounter Plan of Treatment Not on file documented as of this encounter Visit Diagnoses Not on filedocumented in this encounter Additional Health Concerns Assessment Noted Time PHQ-9 Depression Total Score: 3 06/03/19 24 3:02 PM EDT documented as of this encounter Care Teams Research Geneticist Relationship Specialty Start Date End Date Asha Dodge MD [address] [place] [address] PCP - General Family Medicine 12/29/22 documented as of this encounter
--- OUTSIDE RECORDS SUMMARY | 2024-05-09 14:36 | XMS_ITS | Referral Summary ---
Author Organization [facility] Address [address] [place] [address] Care Team Providers Care Associate Pathologist Name Role Phone Asha Dodge Primary Care Provider [phone] Encounters Date Type Department Care Team Description 03/16/2024 Fixya Message [facility] [address] [place] [phone] Zachariah Bianchi MD seeking melatonin test 03/16/2024 Fixya Message [facility] [address] [place] [address] So Hall MD autonomic storming - sleep study 03/16/2024 Fixya Message [facility] [address] [place] [phone] Sebastian Rachel MD at home sleep study 02/13/2024 2:30 PM EST Office Visit [facility] [address] [place] [phone] Sebastian Rachel MD Obstructive sleep apnea (Primary [...] Reports he has had difficulties getting to [facility] to get labs, will check his [...] He is getting care for hemochromatosis at [facility]. He has had hereditary hemochromatosis HFE [...] moderation. - He will continue care at [facility]. If any further questions come up, [...] Description 07/23/2024 11:30 AM EDT Office Visit [facility] [address] [place] [phone] Sebastian Rachel MD [address] [place] [phone] Scheduled Procedures Name Priority Associated Diagnoses Date/Ti me UPPER ENDOSCOPY WITH ENDOSCO PIC ULTRASOUND WITH POSSIBLE MODERATE SEDATION Elevated lipase Insurance [employer] Care Teams Associate Pathologist Relationship Specialty Start Date End Date Asha Dodge [address] [place] [address] PCP - General 07/15/23
--- OUTSIDE RECORDS SUMMARY | 2024-05-09 14:36 | XMS_ITS | Encounter Summary ---
Author Organization [facility] Address [address] [place] [address] Care Team Providers Care Fingerprinter Name Role Phone Asha Dodge Primary Care Provider [phone] Encounter Details Date Type Department Care Team (Late st Contact Info) Description 03/16/2024 myChart Message [facility]rology Clinic [address] [place] [address] [phone] So Hall MD [address] [place] [address] [phone] autonomic storming - sleep study Social History [...] Visit [facility] [address] [place], [place] [phone] Sebastian Rachel MD [address] [place] [address] [phone] Scheduled Procedures Name Priority Associated Diagnoses Date/Ti me UPPER ENDOSCOPY WITH ENDOSCO PIC ULTRASOUND WITH POSSIBLE MODERATE SEDATION Elevated lipase documented as of this encounter Visit Diagnoses Not on filedocumented in this encounter Care Teams Fingerprinter Relationship Specialty Start Date End Date Asha Dodge [address] [place] [address] PCP - General 07/15/23 documented as of this encounter
--- OUTSIDE RECORDS SUMMARY | 2024-05-09 14:36 | XMS_ITS | Encounter Summary ---
Author Organization [facility] Address [address] [place] [address] Care Team Providers Care Production Control Pegboard Clerk Name Role Phone Asha Dodge Primary Care Provider [phone] Encounter Details Date Type Department Care Team (Late st Contact Info) Description 07/17/2021 Orders Only [facility] Neurology Clinic [address] [place] [address] BrendanManoloKaylie [address] [place] [address] Social History Tobacco Use Types Packs/Day Years [...] Description 07/23/2024 11:30 AM EDT Office Visit [facility]rology [facility] [address] [place] [address] Sebastian Rachel MD [address] [place] [address] Scheduled Procedures Name Priority Associated Diagnoses Date/Ti me UPPER ENDOSCOPY WITH ENDOSCO PIC ULTRASOUND WITH POSSIBLE MODERATE SEDATION Elevated lipase documented as of this encounter Procedures * Due to [place] state law, this organization might not be sharing negative HIV tests. Procedure Name Priority Date/Time Associated Diagnosis Comments LAB - SCANNED Routine 04/08/2021 documented in this encounter Results * Due to [place] state law, this organization might not be sharing negative HIV tests. * LAB - SCANNED (04/08/2021) Kaylie Cardona LAB HISTORICAL RESULTS Final Res ult documented in this encounter Visit Diagnoses Not on filedocumented in this encounter Care Teams Production Control Pegboard Clerk Relationship Specialty Start Date End Date Asha Dodge [address] [place] [address] PCP - General 07/15/23 documented as of this encounter
--- OUTSIDE RECORDS SUMMARY | 2024-05-09 14:36 | XMS_ITS | Encounter Summary ---
Author Organization [employer] Address [address] [facility] [address] [place] [address] Care Team Providers Care Feeder Driver Name Role Phone Asha Dodge MD Primary Care Provider [phone] Reason for Visit * Reason Onset Date Comments Durable Medical Equipment 05/01/2024 DME Bl ood Pressure Monitor Encounter Details Date Type Department Care Team (Late st Contact Info) Description 05/01/2024 Telephone [facility] [address] [place], [place] [phone] Asha Dodge MD [address] [place], [place] [phone] Durable Medical Equipment (DME Blood Pressure Monitor) [...] encounter Miscellaneous Notes * Telephone Encounter - Katie Snyder - 05/07/2024 12:22 PM EST RX for BPM signed and faxed to [facility] . Confirmation received and sent to scan. If patient calls to check status on above, please advise them to contact [facility] at [phone]. * Telephone Encounter - Sahara Herbert - [...] documented as of this encounter Care Teams Feeder Driver Relationship Specialty Start Date End Date Asha Dodge MD [address] [place] [phone] PCP - General Family Medicine 12/29/22 documented as of this encounter
--- OUTSIDE RECORDS SUMMARY | 2024-05-09 14:36 | XMS_ITS | Encounter Summary ---
Author Organization [employer] Address [address] [facility] [address] [place] [address] Care Team Providers Care Ventilator Specialist Name Role Phone Asha Dodge MD Primary Care Provider [phone] Encounter Details Date Type Department Care Team (Late st Contact Info) Description 05/09/2024 11:30 AM EST Office Visit [facility] [address] [place], [place] [phone] Asha Dodge MD [address] [place], [place] [phone] Mild cognitive impairment (Primary Dx) Social History Tobacco Use Types [...] 18 05/09/2024 11:21 AM EST Oxygen Saturation - - Inhaled Oxygen Concentration - - Weight 84.9 kg (187 lb 3.2 oz) 05/09/2024 11:21 AM EST Height 180.3 cm (5' 11 ) 05/09/2024 11:21 AM EST Body Mass Index 26.11 05/09/2024 11:21 AM EST documented in this encounter Plan of Treatment Scheduled Orders Name Type Priority Associated Diagnoses Orde r Schedule CBC auto differential Lab Routine Mild cognitive impairment Expected: 05/09/2024 (Approximate), Expires: 05/09/2025 Ferritin Lab Routine Mild cognitive impairment Expected: 05/09/2024, Expires: 05/09/2025 Vitamin B12/Folate, Serum Panel Lab Routine Mild cognitive impairment Expected: 05/09/2024, Expires: 05/09/2025 TSH W/Reflex to FT4 Lab Routine Mild cognitive impairment Expected: 05/09/2024 (Approximate), Expires: 05/09/2025 RPR (Monitor) with Reflex to??Titer Lab Routine Mild cognitive impairment Expected: 05/09/2024, Expires: 05/09/2025 documented as of this encounter Visit Diagnoses Diagnosis Mild cognitive impairment- Primary Mild cognitive impairment, so stated documented in this encounter Additional Health Concerns Assessment Noted Time PHQ-9 Depression Total Score: 3 06/03/19 24 3:02 PM EDT documented as of this encounter Care Teams Ventilator Specialist Relationship Specialty Start Date End Date Asha Dodge MD [address] [place] [address] PCP - General Family Medicine 12/29/22 documented as of this encounter
--- OUTSIDE RECORDS SUMMARY | 2024-05-09 14:36 | XMS_ITS | Encounter Summary ---
Author Organization [facility] Address [address] [place] [address] Care Team Providers Care End Packer Name Role Phone Asha Dodge Primary Care Provider [phone] Encounter Details Date Type Department Care Team (Late st Contact Info) Description 03/16/2024 myChart Message [facility] Neurology Clinic [address] [place] [address] Zachariah Bianchi MD [address] [place] [address] [phone] seeking melatonin test Social History Tobacco Use [...] Description 07/23/2024 11:30 AM EDT Office Visit [facility] Neurology Clinic [address] [place] [address] [phone] Sebastian Rachel MD [address] [place] [address] [phone] Scheduled Procedures Name Priority Associated Diagnoses Date/Ti me UPPER ENDOSCOPY WITH ENDOSCO PIC ULTRASOUND WITH POSSIBLE MODERATE SEDATION Elevated lipase documented as of this encounter Visit Diagnoses Not on filedocumented in this encounter Care Teams End Packer Relationship Specialty Start Date End Date Asha Dodge [address] [place] [address] PCP - General 07/15/23 documented as of this encounter
--- OUTSIDE RECORDS SUMMARY | 2024-05-09 14:36 | XMS_ITS | Encounter Summary ---
Author Organization [facility] Address [address] [place] [address] Care Team Providers Care Parking Lot Laborer Name Role Phone Asha Dodge Primary Care Provider [phone] Encounter Details Date Type Department Care Team (Late st Contact Info) Description 03/21/2023 Orders Only [facility] Interventional Radiology [address] [place], [place] [phone] Doug Hassan MD [address] [place], [place] [phone] Social History Tobacco Use Types Packs/Day Years [...] Description 07/23/2024 11:30 AM EDT Office Visit [facility] Neurology Clinic [address] [place] [address] Sebastian Rachel MD [address] [place] [address] [phone] Scheduled Procedures Name Priority Associated Diagnoses Date/Ti me UPPER ENDOSCOPY WITH ENDOSCO PIC ULTRASOUND WITH POSSIBLE MODERATE SEDATION Elevated lipase documented as of this encounter Visit Diagnoses Not on filedocumented in this encounter Care Teams Parking Lot Laborer Relationship Specialty Start Date End Date Asha Dodge [address] [place] [address] PCP - General 07/15/23 documented as of this encounter
--- OUTSIDE RECORDS SUMMARY | 2024-05-09 14:36 | XMS_ITS | Clinical Summary ---
Author Organization [facility] Address [address] [place] [address] Care Team Providers Care Hostage Negotiator Name Role Phone Unavailable Primary Care Provider [...]
--- OUTSIDE RECORDS SUMMARY | 2024-05-09 14:36 | XMS_ITS | Encounter Summary ---
Author Organization [facility] Address [address] [place] [address] Care Team Providers Care Drop Hammer Operator Helper Name Role Phone Asha Dodge Primary Care Provider [phone] Encounter Details Date Type Department Care Team (Late st Contact Info) Description 03/16/2024 myChart Message [facility] Neurology Clinic [address] [place] [address] Sebastian Rachel MD [address] [place] [address] [phone] at home sleep study Social History Tobacco [...] Description 07/23/2024 11:30 AM EDT Office Visit [facility] Neurology Clinic [address] [place] [address] [phone] Sebastian Rachel MD [address] [place] [address] [phone] Scheduled Procedures Name Priority Associated Diagnoses Date/Ti me UPPER ENDOSCOPY WITH ENDOSCO PIC ULTRASOUND WITH POSSIBLE MODERATE SEDATION Elevated lipase documented as of this encounter Visit Diagnoses Not on filedocumented in this encounter Care Teams Drop Hammer Operator Helper Relationship Specialty Start Date End Date Asha Dodge [address] [place] [address] PCP - General 07/15/23 documented as of this encounter
--- OUTSIDE RECORDS SUMMARY | 2024-05-09 14:36 | XMS_ITS | Encounter Summary ---
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 Please follow up with PT at [phone]. documented in this encounter Plan of Treatment Upcoming Encounters Date Type Department Care Team (Late st Contact Info) Description 07/23/2024 11:30 AM EDT Office Visit [facility] Neurology Clinic [address] [place], [place] [phone] Sebastian Rachel MD [address] [place], [place] [phone] Scheduled Procedures Name Priority Associated Diagnoses Date/Ti me UPPER ENDOSCOPY WITH ENDOSCO PIC ULTRASOUND WITH POSSIBLE MODERATE SEDATION Elevated lipase documented as of this encounter Visit Diagnoses Not on filedocumented in this encounter Care Teams Homemaking Rehabilitation Consultant Relationship Specialty Start Date End Date Asha Dodge [address] [place] [address] PCP - General 07/15/23 documented as of this encounter
--- OUTSIDE RECORDS SUMMARY | 2024-05-09 14:36 | XMS_ITS | Encounter Summary ---
Author Organization [employer] Address [address] [facility] [address] 7t [place] [address] Care Team Providers Care Brazer Resistance Name Role Phone Asha Dodge MD Primary Care Provider Reason for Visit * Reason Comments Care Coordination CHW outreach for SDO H PT-1 and food needs-referral completed Encounter Details Date Type Department Care Team (Latest Contact Info) Description 04/19/2024 Patient Outreach [facility] MEDICINE [address] [place] [address] Asha Dodge MD [address] [place] [address] Care Coordination (CHW outreach for SDOH PT-1 [...] Wednesdays, and Walk-In Urgent Care Located in [facility]. Patient provided with after-hours line for [facility], , which offer night time triage service and option to transfer to cash applications specialist provider if needed. documented in this encounter Plan of Treatment Not on file documented as of this encounter Visit Diagnoses Not on filedocumented in this encounter Additional Health Concerns Assessment Noted Time PHQ-9 Depression Total Score: 3 06/03/19 24 3:02 PM EDT documented as of this encounter Care Teams Brazer Resistance Relationship Specialty Start Date End Date Asha Dodge MD [address] [place] [address] PCP - General Family Medicine 12/29/22 documented as of this encounter
--- OUTSIDE RECORDS SUMMARY | 2024-05-09 14:36 | XMS_ITS | Encounter Summary ---
Author Organization [employer] Address [address] [facility] [address] 7[address] [place] [address] Care Team Providers Care Creping Machine Operator Name Role Phone Asha Dodge MD Primary Care Provider [phone] Reason for Visit * Reason Onset Date Comments PT1 04/19/2024 Encounter Details Date Type Department Care Team (Late st Contact Info) Description 04/19/2024 Telephone [facility] MEDICINE [address] [place], [place] [phone] Asha Dodge MD [address] [place], [place] [phone] PT1 Social History Tobacco Use Types Packs/Day [...] Y/N: Yes Provider name or facility name: [facility] Facility Address: [address] [place] [address] Escort needed: Y/N: No Do you have [...] documented as of this encounter Care Teams Creping Machine Operator Relationship Specialty Start Date End Date Asha Dodge MD [address] [place] [address] PCP - General Family Medicine 12/29/22 documented as of this encounter
--- OUTSIDE RECORDS SUMMARY | 2024-05-09 14:36 | XMS_ITS | Encounter Summary ---
Author Organization [employer] Address [address] [facility] 7t [place] [address] Care Team Providers Care Admissions Recruiter Name Role Phone Asha Dodge MD Primary Care Provider [phone] Reason for Referral * Consultation (Routine) - Canceled Specialty Diagnoses / Procedures Referred By Contladonna t Referred To Contact Endocrinology Diagnoses Right thyroid nodule Rosana Landeros MD [address] [place] [address] Phone: tel: fax: [facility] Endocrinology [address] [place] [address] Phone: tel: fax: Referral ID Status Reason Start Date Expiration Date Visits Requested Visits Authorized [id number] Canceled Specialty Services Required 03/27/2024 03/27/2025 6 6 Encounter Details Date Type Department Care Team ([facility] Contact Info) Description 03/27/2024 Orders Only [facility] MED & PEDS [address] [place] [address] Rosana Landeros MD [address] [place] [address] Right thyroid nodule (Primary Dx) Social History [...] documented as of this encounter Care Teams Admissions Recruiter Relationship Specialty Start Date End Date Asha Dodge MD [address] [place] [address] PCP - General Family Medicine 12/29/22 documented as of this encounter
--- OUTSIDE RECORDS SUMMARY | 2024-05-09 14:36 | XMS_ITS | Encounter Summary ---
Author Organization [facility] [employer] Address [address] 7t [place] [address] Care Team Providers Care Drop Wire Builder Name Role Phone Asha Dodge MD Primary Care Provider [phone] Reason for Visit * Reason Onset Date Comments PT1 03/27/2024 Encounter Details Date Type Department Care Team ([facility] st Contact Info) Description 03/27/2024 Telephone [facility] MEDICINE [address] [place], [place] [phone] Asha Dodge MD [address] [place], [place] [phone] PT1 Social History Tobacco Use Types Packs/Day [...] a call back toclarify what's going on. [phone] * Telephone Encounter - Fiorella Garcia - 03/27/2024 2:00 PM EST Patient calling requesting PT1 Home Address verified: Y/N: Yes Provider name or facility name: [facility] Facility Address: [address] [place] [address] Escort needed: Y/N: No Do you have [...] documented as of this encounter Care Teams Drop Wire Builder Relationship Specialty Start Date End Date Asha Dodge MD [address] [place] [phone] PCP - General Family Medicine 12/29/22 documented as of this encounter
--- OUTSIDE RECORDS SUMMARY | 2024-05-09 14:36 | XMS_ITS | Encounter Summary ---
Author Organization [employer] Address [address] 7t [place] [address] Care Team Providers Care Certified Nurse Aide Name Role Phone Asha Dodge MD Primary Care Provider [phone] Reason for Visit * Reason Onset Date Comments PT1 05/09/2024 Encounter Details Date Type Department Care Team (Late st Contact Info) Description 05/09/2024 Telephone [facility] MEDICINE [address] [place], [place] [phone] Asha Dodge MD [address] [place], [place] [phone] PT1 Social History Tobacco Use Types Packs/Day [...] encounter Miscellaneous Notes * Telephone Encounter - Cristina Popees - 05/09/2024 11:18 AM EST Patient walked in requesting to renew PT1 before it expires. Home Address verified: Y/N: Yes Provider name or facility name: [facility] Facility Address: [address] [place] [address] Escort needed: Y/N: No Do you have a wheelchair: Y/N: No If yes- Manual or electric: no documented in this encounter Plan of Treatment Not on file documented as of this encounter Visit Diagnoses Not on filedocumented in this encounter Additional Health Concerns Assessment Noted Time PHQ-9 Depression Total Score: 3 06/03/19 24 3:02 PM EDT documented as of this encounter Care Teams Certified Nurse Aide Relationship Specialty Start Date End Date Asha Dodge MD [address] [place] [address] PCP - General Family Medicine 12/29/22 documented as of this encounter
--- OUTSIDE RECORDS SUMMARY | 2024-05-09 14:36 | XMS_ITS | Clinical Summary ---
Author Organization [facility] Address [address] [place] [address] Care Team Providers Care Patrol Captain Name Role Phone Asha Dodge Primary Care Provider [phone] Allergies Active Allergy Reactions Criticality Noted Date [...] Reports he has had difficulties getting to [facility] to get labs, will check his [...] He is getting care for hemochromatosis at [facility]. He has had hereditary hemochromatosis HFE [...] moderation. - He will continue care at [facility]. If any further questions come up, he is welcome to come back again to see me. Encounters Date Type Department Care Team Description 03/16/2024 myChart Message [facility] Neurology Clinic [address] [place] [address] Zachariah Bianchi MD seeking melatonin test 03/16/2024 myChart Message [facility] Neurology Clinic [address] [place] [address] So Hall MD autonomic storming - sleep study 03/16/2024 [employer] Message [facility] Neurology Clinic [address] [place] [address] Sebastian Rachel MD at home sleep study 02/13/2024 2:30 PM EST Office Visit [facility] Neurology Clinic [address] [place] [address] Sebastian Rachel MD Obstructive sleep apnea (Primary [...] Description 07/23/2024 11:30 AM EDT Office Visit [facility] Neurology Clinic [address] [place] [address] Sebastian Rachel MD [address] [place] [address] Scheduled Procedures Name Priority Associated Diagnoses [...] 11/30/2023, , 03/05/2019, Additional history exists Insurance [employer] [id number] Care Teams Patrol Captain Relationship Specialty Start Date End Date Asha Dodge [address] [place] [address] PCP - General 07/15/23
== END 2024-05-09 12:11 | disposition home or self-care (01) ==
LOC: HO.HHCL 12:10
PROVIDERS: Visit Provider General Practice
DX: Z13.89 Encounter for screening for other disorder (principal)

== ENCOUNTER 2024-05-17 11:12 | Outpatient (REF) | payer MEDICAID, SELFPAY ==
[2024-05-17 11:41] LABS: MANUAL DIFF FLAG NO
[2024-05-17 11:58] LABS: Basophils Percent Auto 0.8 % (0-2); Eosinophils Absolute Auto 0.1 X10*3/uL (0.0-0.4); Eosinophils Percent Auto 1.7 % (0-4); Hematocrit 49.1 % (42.0-52.0); Imm Gran Abs Auto 0.02 X10*3/uL (0.00-0.03); Imm Gran Pct Auto 0.4 % (0.0-0.4); Lymphocytes Absolute Auto 1.9 X10*3/uL (1.2-4.9); Lymphocytes Percent Auto 36.4 % (20-40); Mean Corpuscular HGB Conc 36.7 g/dl (31.0-36.0); Mean Corpuscular Hemoglobin 32.4 pg (27.0-33.0); Mean Corpuscular Volume 88.3 fL (80.0-98.0); Mean Platelet Volume 9.5 fL (9.4-12.4); Monocytes Absolute Auto 0.3 X10*3/uL (0.1-1.2); Monocytes Percent Auto 5.9 % (2-11); Neutrophils Absolute Auto 2.9 x10*3/uL (2.0-8.3); Neutrophils Percent Auto 54.8 % (45-73); Platelet Count 220 X10*3/uL (160-400); Red Blood Count 5.56 X10*6/uL (4.60-5.80); Red Cell Distribution Width 11.9 % (11.0-16.0); White Blood Count 5.2 X10*3/uL (4.8-10.8)
[2024-05-17 12:55] LABS: Ferritin 348 ng/mL (20-250); TSH reflex Free T4 1.67 uIU/mL (0.32-4.0)
[2024-05-17 13:09] LABS: Folate 4.1 ng/mL (> or = 4.0); Vitamin B12 640 pg/mL (200-900)
--- OUTSIDE RECORDS SUMMARY | 2024-05-17 14:23 | XMS_ITS | Encounter Summary ---
Author Organization [employer] Address [address] [facility] [address] [place] [address] Care Team Providers Care Auto Headlight Mechanic Name Role Phone Asha Dodge MD Primary Care Provider [phone] Reason for Visit * Reason Onset Date Comments Results 12/21/2023 Encounter Details Date Type Department Care Team ([facility] st Contact Info) Description 12/21/2023 Telephone [facility] MEDICINE [address] [place], [place] [phone] Asha Dodge MD [address] [place], [place] [phone] Results Social History Tobacco Use Types Packs/Day [...] Care Team (Late st Contact Info) Description 08/13/2024 2:00 PM EDT Office Visit [facility] MEDICINE [address] [place] [address] Asha Dodge MD [address] [place] [address] documented as of this encounter Visit Diagnoses Not on filedocumented in this encounter Additional Health Concerns Assessment Noted Time PHQ-9 Depression Total Score: 3 06/03/19 24 3:02 PM EDT documented as of this encounter Care Teams Auto Headlight Mechanic Relationship Specialty Start Date End Date Asha Dodge MD [address] [place] [address] PCP - General Family Medicine 12/29/22 documented as of this encounter
--- OUTSIDE RECORDS SUMMARY | 2024-05-17 14:23 | XMS_ITS | Patient Health Record ---
Author Organization [facility] Address [address] [place], [place] [phone] Care Team Providers Care Library Aide Name Role Phone Elizabeth Dillardafa Unavailable [phone] Sebastian Rachel Unavailable Unavailable Reason For Referral No Information Encounters Encounter Location Date Provider Diagnosis [facility] [address] [facility] [address] [place], [place] [phone] 02/17/2024 [employer] Dillard Plan Of Treatment No Information Insurance Providers Payer Name Payer Address Payer Phone Subscriber Number Group Number Insured Name Patient Relationship to Insured Coverage Start Date Coverage End Date Medicaid Community [facility] [employer] [address] [place] [phone] [id number] Arben Emanuel Self - patient is the insured
--- OUTSIDE RECORDS SUMMARY | 2024-05-17 14:24 | XMS_ITS | Encounter Summary ---
Author Organization [employer] Address [address] [facility] [address] 7[address] [place] [address] Care Team Providers Care Campus Recruiting Coordinator Name Role Phone Asha Dodge MD Primary Care Provider [phone] Reason for Visit * Reason Onset Date Comments PT1 07/15/2023 Encounter Details Date Type Department Care Team ([facility] st Contact Info) Description 07/15/2023 Telephone [facility] MEDICINE [address] [place], [place] [phone] Asha Dodge MD [address] [place], [place] [phone] PT1 Social History Tobacco Use Types Packs/Day [...] / denial letter via mail. PT-1 Request [id number] Pending - [facility] Av * Telephone Encounter - Toya Keyes - 07/15/2023 4:17 PM EDT Patient calling requesting PT1 Home Address verified: Y/N: Yes Provider name or facility name: [facility] Facility Address: [address] [place] [address] Escort needed: Y/N: No Do you have a wheelchair: Y/N: No If yes- Manual or electric: none Visits: once documented in this encounter Plan of Treatment Upcoming Encounters Date Type Department Care Team (Late st Contact Info) Description 08/13/2024 2:00 PM EDT Office Visit [facility] MEDICINE [address] [place] [address] Asha Dodge MD [address] [place] [address] documented as of this encounter Visit Diagnoses Not on filedocumented in this encounter Additional Health Concerns Assessment Noted Time PHQ-9 Depression Total Score: 3 06/03/19 24 3:02 PM EDT documented as of this encounter Care Teams Campus Recruiting Coordinator Relationship Specialty Start Date End Date Asha Dodge MD [address] [place] [address] PCP - General Family Medicine 12/29/22 documented as of this encounter
--- OUTSIDE RECORDS SUMMARY | 2024-05-17 14:24 | XMS_ITS | Encounter Summary ---
Author Organization [employer] Address [address] 7[address] [place] [address] Care Team Providers Care Occupational Therapy Aide Name Role Phone Asha Dodge MD Primary Care Provider [phone] Reason for Visit * Reason Onset Date Comments PT1 03/01/2024 Encounter Details Date Type Department Care Team ([facility] st Contact Info) Description 03/01/[address] [facility] MEDICINE [address] [place], [place] [phone] Asha Dodge MD [address] [place], [place] [phone] PT1 Social History Tobacco Use Types Packs/Day [...] Y/N: Yes Provider name or facility name: [facility] Facility Address: [address] [place] [address] Escort needed: Y/N: No Do you have a wheelchair: Y/N: No If yes- Manual or electric: n/a Visits: 1 a month Pt scheduled for appointment on March 08. Hand Tool Filer advise will send message high priority documented in this encounter Plan of Treatment Upcoming Encounters Date Type Department Care Team (Late st Contact Info) Description 08/13/2024 2:00 PM EDT Office Visit [facility] MEDICINE [address] [place] [address] Asha Dodge MD [address] [place] [phone] documented as of this encounter Visit Diagnoses Not on filedocumented in this encounter Additional Health Concerns Assessment Noted Time PHQ-9 Depression Total Score: 3 06/03/19 24 3:02 PM EDT documented as of this encounter Care Teams Occupational Therapy Aide Relationship Specialty Start Date End Date Asha Dodge MD [address] [place] [phone] PCP - General Family Medicine 12/29/22 documented as of this encounter
--- OUTSIDE RECORDS SUMMARY | 2024-05-17 14:24 | XMS_ITS | Encounter Summary ---
Author Organization [employer] Address [address] 7t [place] [address] Care Team Providers Care Billet Driller Name Role Phone Asha Dodge MD Primary Care Provider [phone] Reason for Referral * Consultation (Routine) - Canceled Specialty Diagnoses / Procedures Referred By Contac t Referred To Contact Orthopaedic Surgery Diagnoses Left hip pain Asha Dodge MD [address] [place] [address] Phone: tel: fax: [facility] Orthopedics, Sports Medicine & Surgery (Ambulatory Center) [address] [place] [address] Phone: tel: fax: Referral ID Status Reason Start Date Expiration Date Visits Requested Visits Authorized [id number] Canceled Specialty Services Required 11/09/2023 11/08/2024 1 0 Encounter Details Date Type Department Care Team (Late st Contact Info) Description 11/09/2023 Orders Only [facility] MEDICINE [address] [place] [address] [phone] Asha Dodge MD [address] [place] [address] [phone] Left hip pain (Primary Dx) Social History [...] Description 08/13/2024 2:00 PM EDT Office Visit [facility] MEDICINE [address] [place] [address] Asha Dodge MD [address] [place] [address] Scheduled Referrals Name Type Priority Associated Diagnoses [...] documented as of this encounter Care Teams Billet Driller Relationship Specialty Start Date End Date Asha Dodge MD [address] [place] [address] PCP - General Family Medicine 12/29/22 documented as of this encounter
--- OUTSIDE RECORDS SUMMARY | 2024-05-17 14:24 | XMS_ITS | Encounter Summary ---
Author Organization [employer] Address [address] 7t [place] [address] Care Team Providers Care Diesel Truck Mechanic Name Role Phone Asha Dodge MD Primary Care Provider [phone] Reason for Visit * Reason Onset Date Comments PT1 09/06/2023 Encounter Details Date Type Department Care Team ([facility] st Contact Info) Description 09/06/2023 Telephone [facility] MEDICINE [address] [place], [place] [phone] Asha Dodge MD [address] [place], [place] [phone] PT1 Social History Tobacco Use Types Packs/Day [...] Miscellaneous Notes * Telephone Encounter - Latosha Jaimson - 09/06/2023 3:15 PM EDT Patient calling requesting PT1 Home Address verified: Y/N: Yes Provider name or facility name: [facility] Facility Address: [address] [place] [address] Escort needed: Y/N: No Do you have a wheelchair: Y/N: No If yes- Manual or electric: no Visits: n/a documented in this encounter Plan of Treatment Upcoming Encounters Date Type Department Care Team (Late st Contact Info) Description 08/13/2024 2:00 PM EDT Office Visit [facility] MEDICINE [address] [place] [address] Asha Dodge MD [address] [place] [address] documented as of this encounter Visit Diagnoses Not on filedocumented in this encounter Additional Health Concerns Assessment Noted Time PHQ-9 Depression Total Score: 3 06/03/19 24 3:02 PM EDT documented as of this encounter Care Teams Diesel Truck Mechanic Relationship Specialty Start Date End Date Asha Dodge MD [address] [place] [phone] PCP - General Family Medicine 12/29/22 documented as of this encounter
--- OUTSIDE RECORDS SUMMARY | 2024-05-17 14:24 | XMS_ITS | Encounter Summary ---
Author Organization [employer] Address [address] 7t [place] [address] Care Team Providers Care Electronic Development Technician Name Role Phone Asha Dodge MD Primary Care Provider [phone] Reason for Visit * Reason Onset Date Comments Nurse Triage 08/08/2023 Encounter Details Date Type Department Care Team ([facility] st Contact Info) Description 08/08/2023 Telephone [facility] MEDICINE [address] [place], [place] [phone] Asha Dodge MD [address] [place], [place] [phone] Nurse Triage Social History Tobacco Use Types [...] Description 08/13/2024 2:00 PM EDT Office Visit [facility] MEDICINE [address] [place] [address] Asha Dodge MD [address] [place] [address] documented as of this encounter Visit Diagnoses Not on filedocumented in this encounter Additional Health Concerns Assessment Noted Time PHQ-9 Depression Total Score: 3 06/03/19 24 3:02 PM EDT documented as of this encounter Care Teams Electronic Development Technician Relationship Specialty Start Date End Date Asha Dodge MD [address] [place] [address] PCP - General Family Medicine 12/29/22 documented as of this encounter
--- OUTSIDE RECORDS SUMMARY | 2024-05-17 14:24 | XMS_ITS ---
Author Organization [facility] Address [address] [place], [place] [phone] Care Team Providers Care Ornamental Metal Erector Name Role Phone Eleonora Dillard Unavailable [phone] Sebastian Rachel Unavailable Unavailable REASON FOR VISIT T [facility] Encounters Encounter Location Date Provider Diagnosis [facility] - [facility] [address] [facility] [address] [place], [place] [phone] 02/17/2024 Crewsvamshi Dillard Plan Of Treatment No Information Progress Notes * Arben EMANUELDOB: [birth year] (38 yo M)Acc No.[id number]:02/17/2024 Patient:?Arben EMANUEL :1985???Age:38 Y???Sex:Male Address:[address], [place], [address] * true * Date:? Generated for Sarahi tho/Benjamin/eTransmitting on:?05/17/2024 02:23 PM EDT
--- OUTSIDE RECORDS SUMMARY | 2024-05-17 14:24 | XMS_ITS | Encounter Summary ---
Author Organization [employer] Address [address] 7t [place] [address] Care Team Providers Care Carry In Worker Name Role Phone Asha Dodge MD Primary Care Provider [phone] Encounter Details Date Type Department Care Team (Late st Contact Info) Description 08/31/2023 Orders Only [facility] MEDICINE [address] [place], [place] [phone] Asha Dodge MD [address] [employer] [place], [place] [phone] Hemochromatosis associated with mutation in HFE gene [...] Description 08/13/2024 2:00 PM EDT Office Visit [facility] MEDICINE [address] [place], [place] [phone] Asha Dodge MD [address] [employer] [place], [place] [phone] Scheduled Orders Name Type Priority Associated Diagnoses [...] EDT) Iron 271(H) 45 - 160 mcg/dL [facility] Total Iron Binding Capacity 296 228 - 428 mcg/dL [facility] Percent Iron Saturation 92(H) 15 - 50 % [facility] Unsaturated Iron Binding <25 ug/dL [facility] Blood Venous blood specimen / Unknown 09/20/2023 3:49 PM EDT 09/20/2023 5:20 PM EDT us Asha Dodge MD LAB BLOOD ORDERABLES Final Res ult [facility] [address] [place] [address] [phone] documented in this encounter Visit Diagnoses Diagnosis 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
--- OUTSIDE RECORDS SUMMARY | 2024-05-17 14:24 | XMS_ITS | Encounter Summary ---
Author Organization [employer] Address [address] [place] [address] Care Team Providers Care Railway Station Manager Name Role Phone Asha Dodge MD Primary Care Provider Reason for Visit * Reason Onset Date Comments PT-1 03/15/2024 Encounter Details Date Type Department Care Team ([facility] st Contact Info) Description 03/15/2024 Telephone [facility] MEDICINE [address] [place], [place] [phone] Asha Dodge MD [address] [place], [place] [phone] PT-1 Social History Tobacco Use Types Packs/Day [...] Y/N: Yes Provider name or facility name: [facility] [address] [place] [address] Escort needed: Y/N: No Do you have a wheelchair: Y/N: No Visits: (2) ( x monthly ) documented in this encounter Plan of Treatment Upcoming Encounters Date Type Department Care Team (Late st Contact Info) Description 08/13/2024 2:00 PM EDT Office Visit [facility] MEDICINE [address] [place] [address] Asha Dodge MD [address] [place] [address] documented as of this encounter Visit Diagnoses Not on filedocumented in this encounter Additional Health Concerns Assessment Noted Time PHQ-9 Depression Total Score: 3 06/03/19 24 3:02 PM EDT documented as of this encounter Care Teams Railway Station Manager Relationship Specialty Start Date End Date Asha Dodge MD [address] [place] [address] PCP - General Family Medicine 12/29/22 documented as of this encounter
--- OUTSIDE RECORDS SUMMARY | 2024-05-17 14:24 | XMS_ITS | Encounter Summary ---
Author Organization [employer] Address [address] [facility] 7t [place] [address] Care Team Providers Care Holter Technician Name Role Phone Asha Dodge MD Primary Care Provider [phone] Encounter Details Date Type Department Care Team ([facility] Contact Info) Description 12/02/2022 Orders Only [facility]EDS [address] [place], [place] [phone] Kaylie Cardona MD [address] [place] [address] Memory loss (Primary Dx) Social History Tobacco [...] Upcoming Encounters Date Type Department Care Team ([facility] Contact Info) Description 08/13/2024 2:00 PM EDT Office Visit [facility] MEDICINE [address] [place], [place] [phone] Asha Dodge MD [address] [place], [place] [phone] Scheduled Orders Name Type Priority Associated Diagnoses Orde r Schedule Lipid Panel, Standard Lab Routine Memory loss Expected: 01/01/2023 (Approximate), Expires: 12/03/2023 documented as of this encounter Visit Diagnoses Diagnosis Memory loss- Primary documented in this encounter Care Teams Holter Technician Relationship Specialty Start Date End Date Asha Dodge MD [address] [place] [address] PCP - General Family Medicine 12/29/22 documented as of this encounter
--- OUTSIDE RECORDS SUMMARY | 2024-05-17 14:24 | XMS_ITS | Encounter Summary ---
Author Organization [employer] Address [address] 7[address] [place] [address] Care Team Providers Care Supervisor Compressed Yeast Name Role Phone Asha Dodge MD Primary Care Provider [phone] Reason for Visit * Reason Onset Date Comments PT1 05/31/2023 Encounter Details Date Type Department Care Team ([facility] st Contact Info) Description 05/31/2023 Telephone [facility] MEDICINE [address] [place], [place] [phone] Asha Dodge MD [address] [place], [place] [phone] PT1 Social History Tobacco Use Types Packs/Day [...] hours - You become worse Arben Haro [facility] Clinical Support (supporting Silva Drake RN)25 minutes ago (9:49 AM) AC Still the same as they were in the hospital. The sharp pain in the epigastric region from time to time. She's seeing me in a week and a half; what can I do at home to reduce my numbers? MANPREET Ortega27 minutes ago (9:47 AM) Tin Theodore, You are scheduled for a hospital follow up with Dr. Dodge on 06/20 in office. Your hospital stay and course will be discussed along with any new medications that may have been prescribed. Are you having any symptoms? Silva Fernandez RN * Telephone Encounter - Carmelina Thornton - 05/31/2023 3:27 PM EDT Patient will recieve approval / denial letter via mail. PT-1 Request [id number] Pending . [facility] [address] [facility] [id number] * Telephone Encounter - Toya Keyes - 05/31/2023 2:42 PM EDT Patient calling requesting PT1 Home Address verified: Y/N: Yes Provider name or facility name: [facility] Facility Address: [address] [place] [address] [facility] Escort needed: Y/N: No Do you have a wheelchair: Y/N: No If yes- Manual or electric: no Visits: 12 per year documented in this encounter Plan of Treatment Upcoming Encounters Date Type Department Care Team (Late st Contact Info) Description 08/13/2024 2:00 PM EDT Office Visit [facility] MEDICINE [address] [place] [address] Asha Dodge MD [address] [place], [place] [phone] documented as of this encounter Visit Diagnoses Not on filedocumented in this encounter Care Teams Supervisor Compressed Yeast Relationship Specialty Start Date End Date Asha Dodge MD [address] [place], [place] [phone] PCP - General Family Medicine 12/29/22 documented as of this encounter
--- OUTSIDE RECORDS SUMMARY | 2024-05-17 14:24 | XMS_ITS | Clinical Summary ---
Author Organization [employer] Address [address] [place] [address] Care Team Providers Care Exercise Instructor Name Role Phone Asha Dodge MD Primary Care Provider [phone] Allergies Active Allergy Reactions Criticality Noted Date [...] Active Problems Problem Noted Date Diagnosed Date Mild cognitive impairment 05/11/2024 Assessment & Plan (05/11/2024 6:40 AM EST): Ordered TSH, RPR, Vit B12/folate MRI brain is within last year, will not repeat After labs return to Neurology at [facility] Discussed that lack of exercise/movement impairs blood flow to the brain Consider low dose statin for CAD/microvessal disease prevention as well Adverse effect of other drug s, medicaments [...] to household molds, prefer Dr Fields of [facility] Allergy 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 Overview (10/21/2023): [...] EDT): Gave phone number to referral to [facility] Assessment & Plan (06/06/2023 7:40 AM EDT): Refer to [facility] 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 Hyperlipidemia 03/28/2023 Mucous retention cyst of maxillary sinus 024 03/25/2023 Overview (03/25/2023): Last Assessment & Plan: Is wondering if he can have a maxillary sinus retention cyst addressed. This was found on a head CT last summer done at [facility]. Is wondering if draining or excising would help him. I discussed that for this condition, his best option is to see one of amazing rhinologists. I indicated that I would request this CT imaging being sent to our center (via [employer]) to upload so that when he sees the neurology specialist, that would be available. Will also ask Aleksandra to schedule the visit in clinic after the imaging is here. Primary insomnia 03/22/2023 Assessment & Plan (03/22/2024 11:51 AM EST): Saw [facility] sleep med applications development consultant Awaiting sleep study Neither sleep doctor, nor I can order melatonin levels, I am not sure how this would assist or change treatment either Assessment & Plan (03/22/2023 12:51 PM EST): Its probably related to anxiety, exacerbated by new onset HTN? We discussed re fu with therapist [facility] For rx anxiety, sleep meds, specially since [...] told him to fu with psychotherapist at [facility] for psychopharmacology evaluation. He declined to be [...] (primary) hypertension 06/28/2022 01/30/2023 Assessment & Plan (05/11/2024 6:34 AM EST): Continue to monitor at home Controlled <140/90 generally at home Consider biofeedback for increased self management of anxiety/autonomic storm symptoms Ideally would be on low dose beta michael as well Low dose statin, or even every other day dosing Assessment & Plan (03/22/2024 11:48 AM EST): [...] EST): May have kidney cysts drained at [facility] to improve his secondary polycythemia vera Assessment & Plan (03/05/2022 10:00 AM EST): Requested nephrology referral to [place], encouraged patient to request these referrals to [...] 12/18 had labs at an outside facility ([facility]) with TSH 8.9 Vit D 0.04 and placed him on Vitamin D and TSH changed to 2.91 and Vit D remained the same. Thyroid US was normal aside from a right sided nodule that was there for the past 2 years. He went to an financial recording clerk who said he was unsure of reason [...] will schedule appointments accordingly. PLAN --follow-up with [facility] Endo --Therapy session for neck pain -- Call or return to clinic prn if these symptoms worsen or fail to improve as anticipated. Resolved Problems Problem Noted Date Diagnosed Date Resolved Date Anxiety and depression 02/22/202403/22 Alport syndrome 02/22/2024 03/22/2024 Overview (03/22/2024): COL4A3 gene (c.1450G>A, p.Exx048Ghd) for Alport syndrome. Left facial numbness 11/02/2022 [...] Reports he has had difficulties getting to [facility] to get labs, will check his labs. Abdominal pain 03/05/2022 03/17/2022 Assessment & Plan (03/05/2022 10:00 AM EST): Reports bloating and gas, feels left sided gas that radiates to his left shoulder, if we could have gas and diaphragmatic irritation, benign abd exam. He requested to be sent to [place] to GI, referral placed Dizziness 02/09/2022 03/22/2024 Mood disorder 07/26/2018 01/30/2023 Encounters Date Type Department Care Team Description 05/10/2024 Patient Outreach [address] [address] Asha Dodge MD Care Coordination (CHW outreach for SDOH PT-1 and food needs-referral completed /) 05/10/[address] [address] Asha Dodge MD PT1 05/09/2024 11:30 AM EST Office Visit [address] [address] Asha Dodge MD Mild cognitive impairment (Primary Dx); Anxiety; 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); Essential (primary) hypertension 05/09/[address] [address] Asha Dodge MD PT1 05/09/2024 Travel 05/07/[address] [address] Asha Dodge MD 05/01/[address] [address] Asha Dodge MD Durable Medical Equipment (DME Blood Pressure Monitor) 04/19/2024 Patient Outreach [address] [address] Asha Dodge MD Care Coordination (CHW outreach for SDOH PT-1 and food needs-referral completed /) 04/19/[address] [address] Asha Dodge MD PT1 04/11/[address] [address] Asha Dodge MD Referral 04/05/2024 Refill [facility] [address] [place] [phone] Asha Dodge MD 04/04/2024 Patient Outreach [address] [address] Asha Dodge MD Care Coordination (CHW outreach for SDOH PT-1 and food needs-LVM ) 03/29/[address] [address] Asha Dodge MD Nurse Triage 03/28/2024 3:15 PM EST Office Visit [address] [address] Asha Dodge MD 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) (Primary Dx); Thyroid nodule; Anxiety 03/28/2024 Refill [facility] [address] [place] [phone] Asha Dodge MD 03/28/2024 Travel 03/28/2024 Telephone [facility] [address] [place] [address] Rosana Landeros MD Results 03/28/2024 Patient Outreach [address] [address] Asha Dodge MD Care Coordination (CHW outreach for SDOH PT_1 -referral completed /) 03/27/2024 Orders Only [facility] [address] [place] [address] Rosana Landeros MD Right thyroid nodule (Primary Dx) 03/27/2024 Telephone [facility] [address] [place] [phone] Asha Dodge MD PT1 03/16/2024 11:30 AM EST Office Visit [address] [address] Asha Dodge MD Essential (primary) hypertension (Primary Dx); Dietary counseling; Exercise counseling; Overweight; Polycythemia vera (CMS/HCC); 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; Mild intermittent 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; Bilateral renal cysts; 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); Primary insomnia; Seborrheic dermatitis; Constipation, unspecified constipation type 03/16/2024 Travel 03/16/2024 Patient Outreach [address] [address] Asha Dodge MD Pre-visit Planning ((SDOH screening positive tobacco screening negative) ) 03/15/2024 Patient Outreach [address] [address] Asha Dodge MD Care Coordination (CHW outreach for SDOH PT-1 and food needs-referral completed /) 03/15/[address] [address] Asha Dodge MD PT-1 03/09/2024 Travel 03/02/2024 Patient Outreach [address] [address] Asha Dodge MD Care Coordination (CHW outreach for SDOH PT-1 - LVM ) 03/01/[address] [address] Asha Dodge MD PT1 02/28/[address] [address] Asha Dodge MD ER Follow-up 02/28/2024 Orders Only GENERIC EXTERNAL DATA DEPARTMENT Provider, Generic External Data 02/27/2024 Orders Only GENERIC EXTERNAL DATA DEPARTMENT Provider, Generic External Data 02/20/2024 6:20 PM EST Office Visit [facility] [address] [place] [address] [phone] Rosana Landeros MD Palpitations (Primary Dx); Other insomnia; Thyromegaly 02/20/2024 Travel 02/20/[address] [phone] Asha Dodge MD from Last 3 Months Immunizations Name Administration [...] drink = 0.6 oz pur e alcohol) Alcohol Answer Date Recorded How often do you have a drink containing alcohol ? 0 05/11/2024 How many drinks containing a lcohol do you have on a typical day when you are drinking? 0 05/11/2024 How often do you have six or more drinks on one occasion? 0 05/11/2024 Depression Answer Date Recorded Patient Health Questionnaire-9 [...] 05/09/2024 11:21 AM EST Plan of Treatment Upcoming Encounters Date Type Department Care Team (Late st Contact Info) Description 08/13/2024 2:00 PM EDT Office Visit [facility] [address] [place] [address] Asha Dodge MD [address] [place] [address] Health Maintenance Due Date Last Done Comments Hepatitis B Vaccines (1 of 3 - 19+ 3-dose series) 2004 Pneumococcal Vaccine: Pediatrics (0 to 5 Years) and At-Risk Patients (6 to 49) Years) (1 of 2 - PCV) 2004 HPV Vaccines (2 - 3-dose SCDM series) 12/15/2021 11/17/2021 COVID-19 Vaccine ( season) 2023 11/13/2021, 03/16/2021, 07/15/2020, Additional history exists Depression Screening 06/02/2024 06/03/2023, 06/03/19 24 SDOH Screening 03/16/2025 03/16/2024 Tobacco Screening 05/09/2025 05/09/2024 Alcohol/Substance Use Screening 05/11/2025 05/11/2024 Family Planning (PISQ) 05/11/2025 05/11/2024 Lipid Panel 03/30/2028 03/30/2023, 12/07, 10/29/2021, Additional [...] Procedure Name Priority Date/Time Associated Diagnosis Comments TSH W/REFLEX TO FT4 Routine 05/17/2024 1 1:40 AM EDT Mild cognitive impairment VITAMIN B12/FOLATE, SERUM PANEL Routine 05/17/2024 11:40 AM EDT Mild cognitive impairment FERRITIN Routine 05/17/2024 11:40 AM EDT Mild cognitive impairment CBC WITH AUTO DIFFERENTIAL Routine 05/17/2024 11:40 AM EDT Mild cognitive impairment D DIMER HIGH SENSITIVITY Routine 02/28/2024 1:03 [...] Recently Relevant to Health Maintenance Results * Vitamin B12/Folate, Serum Panel (05/17/2024 11:40 AM EDT) Vitamin B12 640 200 - 900 pg/mL [facility] Comment:NORMAL 200-900 PG/ML INDETERMINATE 160-199 PG/ML DEFICIENT < 160 PG/ML Folate 4.1 > or = 4.0 ng/mL [facility] Comment:Reference Values:> o r = 4.0 ng/mL< 4.0 ng/mL suggests folate deficiency Methotrexate, aminopterin and folinic acid(leucovorin) are chemotherapeutic agents whose molecularstructures are similar to folate; therefore, the Architectfolate assay cannot be used for patients using these drugs. Blood Venous blood specimen / Unknown 05/17/2024 11:40 AM EDT 05/17/2024 11:40 AM EDT Asha Dodge MD LAB BLOOD ORDERABLES Final Res ult Performing Organization Address [facility]/ZIP Co de Phone Number [facility] [address] [place] [address] [phone] * TSH W/Reflex to FT4 (05/17/2024 11:40 AM EDT) Only the most recent of2 resultswithin the time period is included. TSH reflex Free T4 1.67 0.32 - 4.0 uIU/mL [facility] Blood Venous blood specimen / Unknown 05/17/2024 11:40 AM EDT 05/17/2024 11:40 AM EDT Asha Dodge MD LAB BLOOD ORDERABLES Final Res ult Performing Organization Address [facility] Co de Phone Number [facility] [address] [place] [phone] [phone] * (ABNORMAL) CBC auto differential (05/17/2024 11:40 AM EDT) Only the most recent of3 resultswithin the time period is included. White Blood Count 5.2 4.8 - 10.8 X10*3/uL [facility] Red Blood Count 5.56 4.60 - 5.80 X10*6/uL [facility] Hemoglobin 18.0 14.0 - 18.0 g/dl [facility] Hematocrit 49.1 42.0 - 52.0 % [facility] Mean Corpuscular Volume 88.3 80.0 - 98.0 fL [facility] Mean Corpuscular Hemoglobin 32.4 27.0 - 33.0 pg [facility] Mean Corpuscular HGB Conc 36.7(H) 31.0 - 36.0 g/dl [facility] Red Cell Distribution Width 11.9 11.0 - 16.0 % [facility] Platelet Count 220 160 - 400 X10*3/uL [facility] Mean Platelet Volume 9.5 9.4 - 12.4 fL [facility] Neutrophils Percent Auto 54.8 45 - 73 % [facility] Imm Gran Pct Auto 0.4 0.0 - 0.4 % [facility] Lymphocytes Percent Auto 36.4 20 - 40 % [facility] Monocytes Percent Auto 5.9 2 - 11 % [facility] Eosinophils Percent Auto 1.7 0 - 4 % [facility] Basophils Percent Auto 0.8 0 - 2 % [facility] NRBC Pct Auto 0.0 0.0 - 0.2 /100WBC [facility] Neutrophils Absolute Auto 2.9 2.0 - 8.3 x10*3/uL [facility] Imm Gran Abs Auto 0.02 0.00 - 0.03 X10*3/uL [facility] Lymphocytes Absolute Auto 1.9 1.2 - 4.9 X10*3/uL [facility] Monocytes Absolute Auto 0.3 0.1 - 1.2 X10*3/uL [facility] Eosinophils Absolute Auto 0.1 0.0 - 0.4 X10*3/uL [facility] Basophils Absolute Auto 0.0 0.0 - 0.2 X10*3/uL [facility] NRBC Abs Auto 0.000 0.0 - 0.012 X10*3/uL [facility] Blood Venous blood specimen / Unknown 05/17/2024 11:40 AM EDT 05/17/2024 11:40 AM EDT us Asha Dodge MD LAB BLOOD ORDERABLES Final Res ult [facility] [address] [place] [address] [phone] * (ABNORMAL) Ferritin (05/17/2024 11:40 AM EDT) Ferritin 348(H) 20 - 250 ng/mL [facility] Blood Venous blood specimen / Unknown 05/17/2024 11:40 AM EDT 05/17/2024 11:40 AM EDT us Asha Dodge MD LAB BLOOD ORDERABLES Final Res ult Performing Organization Address [facility] Co de Phone Number [facility] [address] [place] [phone] * D Dimer High Sensitivity (02/28/2024 1:03 AM EST) [facility] D Dimer High Sensitivity 218 NG/ML [facility] Comment:D-DIMER HS REFERENCE RANGENote: Our [...] ORDERAB LES Final Result Performing Organization Address [facility] de Phone Number [facility] [address] [place] [phone] * High Sensitivity Troponin I (02/27/2024 11:47 PM EST) [facility] TROPONIN I HIGH SENSITIVITY <2.7 <3.5 - 35.0 ng/L [facility] Comment:The Baron high sens itivity Troponin-I results should beused in conjunction with other diagnostic information suchas ECG, clinical observations and information, and patientsymptoms to aid in the diagnosis of AR. 02/27/2024 11:4 7 PM EST 02/27/2024 11:51 PM EST us Generic External Data Provider LAB BLOOD ORDERAB LES Final Result Performing Organization Address City/[facility]/ZIP Co de Phone Number [facility] [address] [place] [phone] [phone] * (ABNORMAL) Basic Metabolic Panel (02/27/2024 11:47 PM EST) Only the most recent of2 resultswithin the time period is included. Sodium 139 135 - 145 mmol/L [facility] Potassium 3.6 3.3 - 5.1 mmol/L [facility] Comment:Slight Hemolysis.Int erpret result with caution. Chloride 108 96 - 108 mmol/L [facility] Carbon Dioxide 22 22 - 29 mmol/L [facility] Anion Gap 13 12 - 20 [facility] Urea Nitrogen (BUN) 12 9 - 16 mg/dL [facility] Creatinine, Serum 0.85 0.5 - 1.4 mg/dL [facility] Creatinine Clr Calc Pharmacy 125.5 [facility] Comment:eGFR (calculated fro m the MDRD study equation) and eCrCl(calculated from the Cockcroft-Gault equation) are based ondifferent parameters and may not yield comparable results.If eCrCl result is absurd, please check patient'sheight/weight. Estimated Glomerular Filt Rate >60 [facility] Comment:Chronic Kidney Disea se: Estimated GFR < 60 mL/min/1.74n0Lgrewo Kidney Disease: Estimated GFR < 15 mL/min/1.73m2 Glucose 122(H) 60 - 115 mg/dL [facility] Calcium 9.4 8.4 - 10.2 mg/dL [facility] 02/27/2024 11:4 7 PM EST 02/27/2024 11:51 PM EST us Generic External Data Provider LAB BLOOD ORDERAB LES Final Result Performing Organization Address [facility]/ZIP Co de Phone Number [facility] [address] [place] [address] [phone] * US Thyroid (02/24/2024 2:09 PM EST) Anatomical Region Laterality Modality Head, Neck Ultrasound 02/24/2024 2:09 PM EST Narrative 03/26/2024 6:23 AM EST ? [facility] ?[address] ? [place] [address] ? Ultrasound Report ? Signed ? Patient: Adelfo,Arben ?MR#: [id number] ?? [id number] ? : 1985 ?Acct:[id number] ? Age/Sex: 38 / M ?ADM Date: 02/24/24 ? Loc: HO.HMGCX ? Attending Dr: Rosana Landeros MD ? Ordering Physician: Rosana Landeros MD ?? Date of Service: 02/24/24 ?? Procedure(s): US thyroid ?? Accession Number(s): [id number] ? cc: Rosana Landeros MD; Asha Dodge [...] or equal to 1 cm: 1. ?? Electronic Assembler Group Leader nodules are described as follows: ? 1. [...] DD/ 1409 ? TD/TT: 02/24/24 1415 ? Cable Tower Operator: ? Procedure Note Barrera, Image - 03/26/2024 [facility] [address] [place] [address] [place] [address] Ultrasound Report Signed Patient: Sekou Emanuel#: [id number] : 1985Acct:[id number] Age/Sex: 38 / MADM Date: 02/24/24 Loc: HO.HMGCX Attending Dr: Rosana Landeros MD Ordering Physician: Rosana Landeros MD Date of Service: 02/24/24 Procedure(s): US thyroid Accession Number(s): [id number] cc: Rosana Landeros MD; Asha Dodge EXAMINATION: [...] than or equal to 1 cm: 1. Electronic Assembler Group Leader nodules are described as follows: 1. Location: [...] 03/26/24 0619 DD/ 1409 TD/TT: 02/24/24 1415 Cable Tower Operator: us Rosana Landeros MD IMG US PROCEDURES Final Res ult * Magnesium (02/24/2024 2:05 PM EST) Magnesium 2.3 1.6 - 2.6 mg/dL [facility] Blood Venous blood specimen / Unknown 02/24/2024 2:05 PM EST 02/24/2024 4:07 PM EST us Rosana Landeros MD LAB BLOOD ORDERABLES Final Result Performing Organization Address [facility]/ZIP Co de Phone Number [facility] [address] [place] [phone] * ECG 12 lead (02/20/2024 6:59 [...] PM EDT) Hepatitis C Antibody Nonreactive Nonreactive [facility] Comment:Antibodies to HCV no t detected; does not exclude early acuteHCV infection. Blood Venous blood specimen / Unknown 07/20/2023 3:54 PM EDT 07/20/2023 5:41 PM EDT us Asha Dodge MD LAB BLOOD ORDERABLES Final Res ult Performing Organization Address [facility]/ZIP Co de Phone Number [facility] [address] [place] [phone] * HIV-1/2 Antigen and Antibodies, Fourth Generation, with Reflexes (07/20/2023 3:54 PM EDT) HIV AB/AG Nonreactive Nonreactive [facility] Comment:HIV-1 p24 Ag and/or HIV-1/HIV-2 Ab not detected.A test result that is nonreactive does not exclude thepossibility of exposure to or infection with HIV-1 and/orHIV-2. Nonreactive results in this assay for individualswith prior exposure to HIV-1 and/or HIV-2 may be due toantigen and antibody levels that are below the limit ofdetection of this assay.The [employer] HIV Ag/Ab Combo assay result andsupplemental assay results should be interpreted inconjunction with the patient's clinical presentation,history and other laboratory results. If the results areinconsistent with clinical evidence, additional testing issuggested to confirm the result. Blood Venous blood specimen / Unknown 07/20/2023 3:54 PM EDT 07/20/2023 5:41 PM EDT us Asha Dodge MD LAB BLOOD ORDERABLES Final Res ult [facility] [address], [place] [phone] * (ABNORMAL) Lipid Panel, Standard (03/30/2023 9:57 AM EST) Triglycerides 78 <150 mg/dL [facility] Comment:Desirable Triglyceri de: less than 150 mg/dLBorderline High Triglyceride 150-199 mg/dLHigh Triglyceride: 200-499 mg/dLVery High Triglyceride: greater than or equal to 5OO mg/dL Cholesterol 168 <200 mg/dL [facility] Comment:Desirable Cholestero l: less than 200 mg/dLBorderline High Cholesterol: 200-239 mg/dLHigh Cholesterol: greater than 239 mg/dL LDL Cholesterol Calculated 118(H) <100 mg/dL [facility] Comment:Desirable LDL: less than 100 mg/dLNear Optimal/Above Optimal LDL: 110- 129 mg/dLBorderline High LDL: 130-159 mg/dLHigh LDL: 160-189 mg/dLVery High LDL: greater than or equal to 190 mg/dL HDL Cholesterol 35(L) >40 mg/dL [facility] Comment:Desirable HDL: great er than 40 mg/dL Note: This HDL assay may give artificially low results in patients with liver disease. 03/30/2023 9:57 AM EST 03/30/2023 1:35 PM EST us Generic External Data Provider LAB BLOOD ORDERAB LES Final Result [facility] [address] [place] [phone] from Last 3 Months or Most Recently Relevant to Health Maintenance Insurance [facility] C3 Care Teams Exercise Instructor Relationship Specialty Start Date End Date Asha Dodge MD [address] [place] [phone] PCP - General Family Medicine 12/29/22
--- OUTSIDE RECORDS SUMMARY | 2024-05-17 14:24 | XMS_ITS | Encounter Summary ---
Author Organization [employer] Address [address] [place] [address] Care Team Providers Care Brick Paver Name Role Phone Asha Dodge MD Primary Care Provider Reason for Visit * Reason Onset Date Comments PT-1 09/05/2023 Encounter Details Date Type Department Care Team ([facility] st Contact Info) Description 09/05/2023 Telephone [facility] [address] [place], [place] [phone] Asha Dodge MD [address] [place], [place] [phone] PT-1 Social History Tobacco Use Types Packs/Day [...] Y/N: Yes Provider name or facility name: [facility] Facility Address: [address] [place] [address] Escort needed: Y/N: No Do you have a wheelchair: Y/N: No If yes- Manual or electric: no Visits: 2x a month documented in this encounter Plan of Treatment Upcoming Encounters Date Type Department Care Team (Late st Contact Info) Description 08/13/2024 2:00 PM EDT Office Visit [facility] [address] [place] [address] Asha Dodge MD [address] [place] [address] documented as of this encounter Visit Diagnoses Not on filedocumented in this encounter Additional Health Concerns Assessment Noted Time PHQ-9 Depression Total Score: 3 06/03/19 24 3:02 PM EDT documented as of this encounter Care Teams Brick Paver Relationship Specialty Start Date End Date Asha Dodge MD [address] [place] [phone] PCP - General Family Medicine 12/29/22 documented as of this encounter
--- OUTSIDE RECORDS SUMMARY | 2024-05-17 14:24 | XMS_ITS | Encounter Summary ---
Author Organization [employer] Address [address] 7t [place] [address] Care Team Providers Care Purchase Order Checker Name Role Phone Asha Dodge MD Primary Care Provider [phone] Reason for Visit * Reason Onset Date Comments PT1 11/21/2023 Encounter Details Date Type Department Care Team ([facility] st Contact Info) Description 11/21/2023 Telephone [facility] [address] [place], [place] [phone] Asha Dodge MD 230 [place], [place] [phone] PT1 Social History Tobacco Use Types Packs/Day [...] name or facility name: PCP Facility Address: [address] [place] [address] Escort needed: Y/N: No Do you have a wheelchair: Y/N: No If yes- Manual or electric: Visits: 1-2 times a month 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
--- OUTSIDE RECORDS SUMMARY | 2024-05-17 14:24 | XMS_ITS | Encounter Summary ---
Author Organization [employer] Address [address] [facility] [address] 7t [place] [address] Care Team Providers Care Construction Management Assistant Name Role Phone Asha Dodge MD Primary Care Provider [phone] Reason for Visit * Reason Onset Date Comments PT-1 11/09/2023 Encounter Details Date Type Department Care Team ([facility] st Contact Info) Description 11/09/2023 Telephone [facility] 230 [place], [place] [phone] Asha Dodge MD 230 [place], [place] [phone] PT-1 Social History Tobacco Use Types Packs/Day [...] or facility name: [facility] Facility Address: [address] [place] [address] Escort needed: Y/N: No Do you have a wheelchair: Y/N: No If yes- Manual or electric: no Visits: 6 appt is on 11/22 @ 3pm documented in this encounter Plan of Treatment Upcoming Encounters Date Type Department Care Team (Late st Contact Info) Description 08/13/2024 2:00 PM EDT Office Visit [facility] [address] [place] [address] Asha Dodge MD [address] [place] [address] documented as of this encounter Visit Diagnoses Not on filedocumented in this encounter Additional Health Concerns Assessment Noted Time PHQ-9 Depression Total Score: 3 06/03/19 24 3:02 PM EDT documented as of this encounter Care Teams Construction Management Assistant Relationship Specialty Start Date End Date Asha Dodge MD [address] [place] [address] PCP - General Family Medicine 12/29/22 documented as of this encounter
--- OUTSIDE RECORDS SUMMARY | 2024-05-17 14:24 | XMS_ITS | Encounter Summary ---
Author Organization [employer] Address [address] [facility] 7t [place] [address] Care Team Providers Care Stripping And Booking Machine Operator Name Role Phone Asha Dodge MD Primary Care Provider [phone] Encounter Details Date Type Department Care Team (Late Contact Info) Description 04/21/2022 Orders Only [facility] MED[facility]INE [address] [place] [phone] Kaylie Cardona MD [address] [place] [phone] Hemochromatosis, unspecified hemochromatosis type (Primary Dx) Social [...] Upcoming Encounters Date Type Department Care Team ([facility] Contact Info) Description 08/13/2024 2:00 PM EDT Office Visit [facility] [address] [place] [address] [phone] Asha Dodge MD 230 [place], [place] [phone] documented as of this encounter Procedures Procedure [...] SENSITIVITY TROPONIN I (05/02/2022 9:18 PM EST) Pathologist [facility] TROPONIN I HIGH SENSITIVITY <3.5 <3.5 - 35.0 ng/L [facility] Comment:The Baron high sens itivity Troponin-I results should beused in conjunction with other diagnostic information suchas ECG, clinical observations and information, and patientsymptoms to aid in the diagnosis of NM. 05/02/2022 9:18 PM EST 05/02/2022 9:21 PM EST [facility] External Provider LAB BLO OD ORDERABLES Final Result Performing Organization Address City/[facility]/ZIP Co de Phone Number [facility] [address] [place] [phone] * Lipase (05/02/2022 9:18 PM EST) Pathologist [facility] Lipase 35 8 - 78 U/L [facility] 05/02/2022 9:18 PM EST 05/02/2022 9:21 PM EST [facility] External Provider LAB BLO OD ORDERABLES Final Result Performing Organization Address City/[facility]/ZIP Co de Phone Number [facility] [address] [place] [phone] * Comprehensive Metabolic Panel (05/02/2022 9:18 PM EST) Sodium 141 135 - 145 mmol/L [facility] Potassium 4.2 3.3 - 5.1 mmol/L [facility] Chloride 103 96 - 108 mmol/L [facility] Carbon Dioxide 27 22 - 29 mmol/L [facility] Anion Gap 15 12 - 20 [facility] Urea Nitrogen (BUN) 12 9 - 16 mg/dL [facility] Creatinine, Serum 1.04 0.5 - 1.4 mg/dL [facility] Creatinine Clr Calc Pharmacy 114.4 [facility] Comment:eGFR (calculated fro m the MDRD study equation) and eCrCl(calculated from the Cockcroft-Gault equation) are based ondifferent parameters and may not yield comparable results.If eCrCl result is absurd, please check patient'sheight/weight. Estimated Glomerular Filt Rate >60 [facility] Comment:NOTE: For -Am erican individuals, multiply the result by 1.210.Chronic Kidney Disease: Estimated GFR < 60 mL/min/1.02t1Ooybxk Kidney Disease: Estimated GFR < 15 mL/min/1.73m2 Glucose 96 60 - 115 mg/dL [facility] Calcium 9.7 8.4 - 10.2 mg/dL [facility] Bilirubin, Total 0.8 0.0 - 1.0 mg/dL [facility] Aspartate Amino Transferase 20 5 - 37 U/L [facility] Alanine Aminotransferase 31 0 - 40 U/L [facility] Total Protein 7.3 6.5 - 8.0 g/dL [facility] Albumin Level 4.4 3.5 - 5.0 g/dL [facility] Alkaline Phosphatase 81 39 - 117 U/L [facility] 05/02/2022 9:18 PM EST 05/02/2022 9:21 PM EST us [facility] External Provider LAB BLO OD ORDERABLES Final Result [facility] [address] [place] [phone] [phone] * (ABNORMAL) CBC auto differential (05/02/2022 9:18 PM EST) White Blood Count 8.8 4.8 - 10.8 X10*3/uL [facility] Red Blood Count 5.81(H) 4.60 - 5.80 X10*6/uL [facility] Hemoglobin 18.7(H) 14.0 - 18.0 g/dl [facility] Hematocrit 51.7 42.0 - 52.0 % [facility] Mean Corpuscular Volume 89.0 80.0 - 98.0 fL [facility] Mean Corpuscular Hemoglobin 32.2 27.0 - 33.0 pg [facility] Mean Corpuscular HGB Conc 36.2(H) 31.0 - 36.0 g/dl [facility] Red Cell Distribution Width 11.8 11.0 - 16.0 % [facility] Platelet Count 258 160 - 400 X10*3/uL [facility] Mean Platelet Volume 9.2(L) 9.4 - 12.4 fL [facility] Neutrophils Percent Auto 69.4 45 - 73 % [facility] Imm Gran Pct Auto 0.1 0.0 - 0.4 % [facility] Lymphocytes Percent Auto 22.1 20 - 40 % [facility] Monocytes Percent Auto 6.1 2 - 11 % [facility] Eosinophils Percent Auto 1.5 0 - 4 % [facility] Basophils Percent Auto 0.8 0 - 2 % [facility] NRBC Pct Auto 0.0 0.0 - 0.2 /100WBC [facility] Neutrophils Absolute Auto 6.1 2.0 - 8.3 x10*3/uL [facility] Imm Gran Abs Auto 0.01 0.00 - 0.03 X10*3/uL [facility] Lymphocytes Absolute Auto 1.9 1.2 - 4.9 X10*3/uL [facility] Monocytes Absolute Auto 0.5 0.1 - 1.2 X10*3/uL [facility] Eosinophils Absolute Auto 0.1 0.0 - 0.4 X10*3/uL [facility] Basophils Absolute Auto 0.1 0.0 - 0.2 X10*3/uL [facility] NRBC Abs Auto 0.000 0.0 - 0.012 X10*3/uL [facility] 05/02/2022 9:18 PM EST 05/02/2022 9:21 PM EST us [facility] External Provider LAB BLO OD ORDERABLES Final Result Performing Organization Address City/State/[facility] Co de Phone Number [facility] [address] [place] [address] [phone] documented in this encounter Visit Diagnoses Diagnosis Hemochromatosis, unspecified hemochromatosis type- Primary documented in this encounter Care Teams Stripping And Booking Machine Operator Relationship Specialty Start Date End Date Asha Dodge MD [address] [place] [phone] PCP - General Family Medicine 12/29/22 documented as of this encounter
--- OUTSIDE RECORDS SUMMARY | 2024-05-17 14:24 | XMS_ITS | Encounter Summary ---
Author Organization [employer] Address [address] [facility] [facility] [address] 7t [place] [address] Care Team Providers Care International Sales Manager Name Role Phone Asha Dodge MD Primary Care Provider [phone] Reason for Visit * Reason Onset Date Comments PT-1 06/14/2023 Encounter Details Date Type Department Care Team ([facility] st Contact Info) Description 06/14/2023 Telephone [facility] 230 [place], [place] [phone] Asha Dodge MD 230 [place], [place] [phone] PT-1 Social History Tobacco Use Types Packs/Day [...] / denial letter via mail. PT-1 Request [id number] Pending [facility] Pt has active PT1 to [address] [place] [address] through 06/2024 * Telephone Encounter - Sean Espinal - 06/21/2023 1:54 PM EDT Tc from patient calling to request the status of PT-1 for upcoming appt on 06/22 * Telephone Encounter - Sean Espinal - 06/14/2023 2:09 PM EDT Patient calling requesting PT1 Home Address verified: Y/N: Yes Provider name or facility name: Dr. Dallin Andrews MD Facility Address: [address] [place] [address] Escort needed: Y/N: No Do you have a wheelchair: Y/N: No If yes- Manual or electric: no Visits: 4x a month Patient calling requesting PT1 Home Address verified: Y/N: Yes Provider name or facility name: [facility] Facility Address: [address] [place] [address] Escort needed: Y/N: No Do you have a wheelchair: Y/N: No If yes- Manual or electric: no Visits: 2x a month documented in this encounter Plan of Treatment Upcoming Encounters Date Type Department Care Team (Late st Contact Info) Description 08/13/2024 2:00 PM EDT Office Visit [facility] [address] [place] [address] Asha Dodge MD 230 [place], [place] [phone] documented as of this encounter Visit Diagnoses Not on filedocumented in this encounter Additional Health Concerns Assessment Noted Time PHQ-9 Depression Total Score: 3 06/03/19 24 3:02 PM EDT documented as of this encounter Care Teams International Sales Manager Relationship Specialty Start Date End Date Asha Dodge MD 230 [place] [address] PCP - General Family Medicine 12/29/22 documented as of this encounter
--- OUTSIDE RECORDS SUMMARY | 2024-05-17 14:24 | XMS_ITS | Encounter Summary ---
Author Organization [employer] Address [address] [facility] [address] 7t [place] [address] Care Team Providers Care Underground Foreman Name Role Phone Asha Dodge MD Primary Care Provider [phone] Reason for Visit * Reason Onset Date Comments PT1 12/13/2023 Encounter Details Date Type Department Care Team ([facility] st Contact Info) Description 12/13/2023 Telephone [facility] 230 [place], [place] [phone] Asha Dodge MD 230 [place], [place] [phone] PT1 Social History Tobacco Use Types Packs/Day [...] Y/N: Yes Provider name or facility name: [facility] Facility Address: [address] [place] [address] [place] [address] Escort needed: Y/N: Yes Do you have a wheelchair: Y/N: No If yes- Manual or electric: n/a Visits: 1 x 3 months documented in this encounter Plan of Treatment Upcoming Encounters Date Type Department Care Team (Late st Contact Info) Description 08/13/2024 2:00 PM EDT Office Visit [facility] [address] [place] [address] Asha Dodge MD 230 [place] [address] documented as of this encounter Visit Diagnoses Not on filedocumented in this encounter Additional Health Concerns Assessment Noted Time PHQ-9 Depression Total Score: 3 06/03/19 24 3:02 PM EDT documented as of this encounter Care Teams Underground Foreman Relationship Specialty Start Date End Date Asha Dodge MD [address] [place] [address] PCP - General Family Medicine 12/29/22 documented as of this encounter
--- OUTSIDE RECORDS SUMMARY | 2024-05-17 14:24 | XMS_ITS | Encounter Summary ---
Author Organization [employer] Address [address] [facility] [address] 7t [place] [address] Care Team Providers Care Fermenter Wine Name Role Phone Asha Dodge MD Primary Care Provider [phone] Encounter Details Date Type Department Care Team (Late st Contact Info) Description 12/02/2023 Orders Only [facility] 230 [place], [place] [phone] Asha Dodge MD 230 [place], [place] [phone] Social History Tobacco Use Types Packs/Day Years [...] Description 08/13/2024 2:00 PM EDT Office Visit [facility] 230 [facility] [place] [address] Asha Dodge MD 230 [place] [address] documented as of this encounter Procedures Procedure Name Priority Date/Time Associated Diagnosis Comments US SMA Routine 12/21/2023 9:03 AM EDT documented in this encounter Results * US SMA (12/21/2023 9:03 AM EDT) Anatomical Region Laterality Modality Abdomen Ultrasound 12/21/2023 9:03 AM EDT Narrative 12/23/2023 4:24 PM EDT ? [facility] Adult Primary Care ?[address] ? [place] [address] ? Ultrasound Report ? Signed ? Patient: Arben Emanuel ?MR#: [id number] ?? [id number] ? : 1985 ?Acct:[id number] ? Age/Sex: 38 / M ?ADM Date: 10/16/24 ? Loc: HO.HMGCX ? Attending Dr: Marco Spears MD ? Ordering Physician: Marco Spears MD ?? Date of Service: 12/21/23 ?? Procedure(s): US SMA ?? Accession Number(s): [id number] ? cc: Marco Spears MD; Asha Dodge [...] HEPATIC ARTERY: ?? Velocity: 28.1 cm/s ? US/US SMA ?? IMPRESSION: ?? Velocity in the [...] DD/ 0903 ? TD/TT: 12/21/23 0930 ? Professor Of Theology: SS ? Procedure Note Barrera, Image - 12/23/2023 [facility] Adult Primary Care [facility] [address] [place], [place] [address] Ultrasound Report Signed Patient: Sekou Emanuel#: [id number] : 1985Acct:[id number] Age/Sex: 38 / MADM Date: 12/21/23 Loc: HO.HMGCX Attending Dr: Marco Spears MD Ordering Physician: Marco Spears MD Date of Service: 12/21/23 Procedure(s): US SMA Accession Number(s): [id number] cc: Marco Spears MD; Asha Dodge EXAMINATION: [...] in OV> 12/23/23 1621 DD/ 0903 TD/TT: 12/21/23 0930 Professor Of Theology: MANE [facility] External Provider IMG US PROCEDURES Final Result documented in this encounter Visit Diagnoses Not on filedocumented in this encounter Additional Health Concerns Assessment Noted Time PHQ-9 Depression Total Score: 3 06/03/19 24 3:02 PM EDT documented as of this encounter Care Teams Fermenter Wine Relationship Specialty Start Date End Date Asha Dodge MD [address] [place] [address] PCP - General Family Medicine 12/29/22 documented as of this encounter
--- OUTSIDE RECORDS SUMMARY | 2024-05-17 14:24 | XMS_ITS | Encounter Summary ---
Author Organization [employer] Address [address] [facility] [address] 7t [place] [address] Care Team Providers Care Tap Out Operator Name Role Phone Asha Dodge MD Primary Care Provider [phone] Encounter Details Date Type Department Care Team (Late st Contact Info) Description 07/20/2023 Orders Only [facility] [address] [place], [place] [phone] Asha Dodge MD [address] [place], [place] [phone] Frothy urine (Primary Dx) Social History Tobacco [...] Description 08/13/2024 2:00 PM EDT Office Visit [facility] 230 [place], [place] [phone] Asha Dodge MD [address] [place] [address] documented as of this encounter Procedures Procedure Name Priority Date/Time Associated Diagnosis Comments URINALYSIS, COMPLETE, WITH REFLEX TO CULTURE Routine 07/20/2023 3:54 PM EDT Frothy urine documented in this encounter Results * Urinalysis, Complete, with Reflex to Culture (07/20/2023 3:54 PM EDT) Color Urine Yellow [facility] Appearance Urine Clear [facility] PH 7.5 5.0 - 9.0 [facility] Glucose Urine UA Negative Negative mg/dL [facility] Urine Blood Negative Negative [facility] Specific [place] - Urine <=1.005 1.005 - 1.025 [facility] Urine Protein Negative Neg-Trace mg/dL [facility] Urine Ketones Negative Negative mg/dL [facility] Nitrite Urine Negative Negative [facility] Leukocyte Esterase Urine Negative Negative [facility] RBC Urine 0-2 0 - 2 /HPF [facility] Urine WBC 0-5 0 - 5 /HPF [facility] Urine Squamous Epithelial Cell 0-2 0 - 2 /HPF [facility] Urine Bacteria None Seen None Seen [facility] Hyaline Casts, Urine 0-2 0 - 2 /LPF [facility] Urine 07/20/2023 3:54 PM EDT 07/20/2023 5:19 PM EDT Narrative [facility] - 07/20/2023 5:51 PM EDT Urine, Clean Catch us Asha Dodge MD LAB URINE ORDERABLES Final Res ult [facility] [address] [place] [address] [phone] documented in this encounter Visit Diagnoses Diagnosis Frothy urine- Primary documented in this encounter Additional Health Concerns Assessment Noted Time PHQ-9 Depression Total Score: 3 06/03/19 24 3:02 PM EDT documented as of this encounter Care Teams Tap Out Operator Relationship Specialty Start Date End Date Asha Dodge MD [address] [place] [address] PCP - General Family Medicine 12/29/22 documented as of this encounter
--- OUTSIDE RECORDS SUMMARY | 2024-05-17 14:25 | XMS_ITS | Encounter Summary ---
Author Organization [facility] Address [address] [place] [address] Care Team Providers Care Trestleman Name Role Phone Asha Dodge Primary Care Provider [phone] Encounter Details Date Type Department Care Team (Late st Contact Info) Description 05/14/2024 Orders Only [facility] [address] [place] [address] Sebastian Rachel MD [address] [place] [phone] Social History Tobacco Use Types Packs/Day Years [...] Description 07/23/2024 11:30 AM EDT Office Visit [facility] [address] [place] [address] Sebastian Rachel MD [address] [place] [phone] 03/06/2025 1:15 PM EST Office Visit [facility] [address] [place] [phone] Kentrell Bell MD [address] [facility] [address] [place] [address] Scheduled Procedures Name Priority Associated Diagnoses Date/Ti me UPPER ENDOSCOPY WITH ENDOSCO PIC ULTRASOUND WITH POSSIBLE MODERATE SEDATION Elevated lipase documented as of this encounter Procedures * Due to [facility] law, this organization might not be sharing negative HIV tests. Procedure Name Priority Date/Time Associated Diagnosis Comments SLEEP STUDY - SCANNED Routine 05/08/2024 12:15 PM EST documented in this encounter Results * Due to [place] [employer] law, this organization might not be sharing negative HIV tests. * SLEEP STUDY - SCANNED (05/08/2024 12:15 PM EST) us Sebastian Rachel MD SCANNED PROCEDURES Final Resul t documented in this encounter Visit Diagnoses Not on filedocumented in this encounter Care Teams Trestleman Relationship Specialty Start Date End Date Asha Dodge [address] [place] [phone] PCP - General 07/15/23 documented as of this encounter
--- OUTSIDE RECORDS SUMMARY | 2024-05-17 14:25 | XMS_ITS | Encounter Summary ---
Author Organization [employer] Address [address] [facility] [address] 7t [place] [address] Care Team Providers Care Munitions Handler Name Role Phone Asha Dodge MD Primary Care Provider [phone] Reason for Visit * Reason Onset Date Comments PT1 04/19/2024 Encounter Details Date Type Department Care Team (Late st Contact Info) Description 04/19/2024 Telephone [facility] 230 [place], [place] [phone] Asha Dodge MD 230 [place], [place] [phone] PT1 Social History Tobacco Use Types Packs/Day [...] Y/N: Yes Provider name or facility name: [facility] Facility Address: [address] [place] [address] Escort needed: Y/N: No Do you have a wheelchair: Y/N: No If yes- Manual or electric: n/a Visits: 1 x a month documented in this encounter Plan of Treatment Upcoming Encounters Date Type Department Care Team (Late st Contact Info) Description 08/13/2024 2:00 PM EDT Office Visit [facility] [address] [place] [address] Asha Dodge MD [address] [place] [address] documented as of this encounter Visit Diagnoses Not on filedocumented in this encounter Additional Health Concerns Assessment Noted Time PHQ-9 Depression Total Score: 3 06/03/19 24 3:02 PM EDT documented as of this encounter Care Teams Munitions Handler Relationship Specialty Start Date End Date Asha Dodge MD [address] [place] [phone] PCP - General Family Medicine 12/29/22 documented as of this encounter
--- OUTSIDE RECORDS SUMMARY | 2024-05-17 14:25 | XMS_ITS | Clinical Summary ---
Author Organization [facility] Address [address] [place] [address] Care Team Providers Care Field Foreman Name Role Phone Asha Dodge Primary Care Provider [phone] Allergies Active Allergy Reactions Criticality Noted Date [...] Reports he has had difficulties getting to [facility] to get labs, will check his labs. [...] getting care for hemochromatosis at [facility]. He has had hereditary hemochromatosis HFE [...] moderation. - He will continue care at [facility]. If any further questions come up, he is welcome to come back again to see me. Encounters Date Type Department Care Team Description 05/15/2024 myChart Message [facility] [address] [place] [address] Yasmeen Villar, [facility] Sleep Study Results 05/14/2024 Orders Only [facility] [address] [place] [address] Sebastian Rachel MD 05/11/2024 Telephone [facility] [address] [place] [address] Telephone Intake, Staff 03/16/2024 myChart Message [facility] [address] [address] Zachariah Bianchi MD seeking melatonin test 03/16/2024 myChart Message [facility] [address] [address] So Hall MD autonomic storming - sleep study 03/16/2024 myChart Message [facility] [address] [place] [address] Sebastian Rachel MD at home sleep study from Last 3 Months Family History Relation [...] 07/23/2024 11:30 AM EDT Office Visit [facility] [address] [place] [address] Sebastian Rachel MD [address] [place] [address] 03/06/2025 1:15 PM EST Office Visit [facility] [address] [facility] [address] [place] [address] Kentrell Bell MD [address] [place] [address] [address] [place] [address] Scheduled Procedures Name Priority Associated Diagnoses Date/Ti [...] Completed 11/30/2023, , 03/05/2019, Additional history exists Procedures * Due to [place] [employer] law, this organization might not be sharing negative HIV tests. Procedure Name Priority Date/Time Associated Diagnosis Comments SLEEP STUDY - SCANNED Routine 05/08/2024 12:15 PM EST from Last 3 Months Results * Due to [place] [employer] law, this organization might not be sharing negative HIV tests. * SLEEP STUDY - SCANNED (05/08/2024 12:15 PM EST) us Sebastian Rachel MD SCANNED PROCEDURES Final Resul t from Last 3 Months Insurance [facility] Care Teams Field Foreman Relationship Specialty Start Date End Date Asha Dodge [address] [place] [address] PCP - General 07/15/23
--- OUTSIDE RECORDS SUMMARY | 2024-05-17 14:25 | XMS_ITS | Encounter Summary ---
Author Organization [email or web address] Address [address] [place] [address] Care Team Providers Care Red Hat Linux Administrator Name Role Phone Asha Dodge MD Primary Care Provider [phone] Encounter Details Date Type Department Care Team (Late st Contact Info) Description 05/07/[address] [facility] [address] [place], [place] [phone] Asha Dodge MD [address] [place], [place] [phone] Social History Tobacco Use Types Packs/Day Years [...] PM EDT Office Visit [facility] [address] [place] [address] Asha Dodge MD [address] [place] [address] documented as of this encounter Visit Diagnoses Not on filedocumented in this encounter Additional Health Concerns Assessment Noted Time PHQ-9 Depression Total Score: 3 06/03/19 24 3:02 PM EDT documented as of this encounter Care Teams [employer] Administrator Relationship Specialty Start Date End Date Asha Dodge MD [address] [place] [address] PCP - General Family Medicine 12/29/22 documented as of this encounter
--- OUTSIDE RECORDS SUMMARY | 2024-05-17 14:25 | XMS_ITS | Encounter Summary ---
Author Organization [employer] Address [address] [place] [address] Care Team Providers Care Seamless Tube Roller Name Role Phone Asha Dodge MD Primary Care Provider [phone] Reason for Visit * Reason Comments Care Coordination CHW outreach for SDO H PT-1 and food needs-referral completed Encounter Details Date Type Department Care Team (Latest Contact Info) Description 04/19/2024 Patient Outreach [facility] [address] [place] [address] Asha Dodge MD [address] [place] [address] Care Coordination (CHW outreach for SDOH PT-1 [...] CHW requested PT-1 plus referred family to [employer] [facility] in the local area. Patient agree to follow up with plan. Patient educated on extended clinic hours on Mondays through Wednesdays, and Walk-In Urgent Care Located in [facility]. Patient provided with after-hours line for [facility], , which offer night time triage service and option to transfer to front desk assistant provider if needed. documented in this encounter Plan of Treatment Upcoming Encounters Date Type Department Care Team (Late st Contact Info) Description 08/13/2024 2:00 PM EDT Office Visit [facility] [address] [place] [address] Asha Dodge MD [address] [place] [address] documented as of this encounter Visit Diagnoses Not on filedocumented in this encounter Additional Health Concerns Assessment Noted Time PHQ-9 Depression Total Score: 3 03/29/20 24 3:02 PM EDT documented as of this encounter Care Teams Seamless Tube Roller Relationship Specialty Start Date End Date Asha Dodge MD [address] [place] [address] PCP - General Family Medicine 12/29/22 documented as of this encounter
--- OUTSIDE RECORDS SUMMARY | 2024-05-17 14:25 | XMS_ITS | Encounter Summary ---
Author Organization [employer] Address [address] 7[address] [place] [address] Care Team Providers Care Tone Artist Apprentice Name Role Phone Asha Dodge MD Primary Care Provider [phone] Encounter Details Date Type Department Care Team (Late Contact Info) Description 03/21/2023 Orders Only [facility] [address] [place] [address] Doug Quintana MD [address] [place] [address] Social History Tobacco Use Types Packs/Day Years [...] Encounters Date Type Department Care Team (Late Contact Info) Description 08/13/2024 2:00 PM EDT Office Visit [facility] [address] [place] [address] Asha Dodge MD [address] [place] [address] documented as of this encounter Visit Diagnoses Not on filedocumented in this encounter Care Teams Tone Artist Apprentice Relationship Specialty Start Date End Date Asha Dodge MD [address] [place] [address] PCP - General Family Medicine 12/29/22 documented as of this encounter
--- OUTSIDE RECORDS SUMMARY | 2024-05-17 14:25 | XMS_ITS | Referral Summary ---
Author Organization [facility] Address [address] [place] [address] Care Team Providers Care Credit Administration Specialist Name Role Phone Asha Dodge Primary Care Provider [phone] Encounters Date Type Department Care Team Description 05/15/2024 Neovacshart Message [facility] [address] [place] [address] Yasmeen Villar, [facility] Sleep Study Results 05/14/2024 Orders Only [facility] [address] [place] [address] Sebastian Rachel MD 05/11/2024 Telephone [facility] [address] [place] [address] Telephone Intake, Staff 03/16/2024 Neovacshart Message [facility] [address] [place] [address] Zachariah Bianchi MD seeking melatonin test 03/16/2024 Neovacshart Message [facility] [address] [place] [address] So Hall MD autonomic storming - sleep study 03/16/2024 Neovacshart Message [facility] [address] [place] [address] Sebastian Rachel MD at home sleep study from Last 3 Months Allergies Active Allergy [...] Reports he has had difficulties getting to [facility] to get labs, will check his labs. [...] He is getting care for hemochromatosis at [facility]. He has had hereditary hemochromatosis HFE [...] moderation. - He will continue care at [facility]. If any further questions come up, he [...] Description 07/23/2024 11:30 AM EDT Office Visit [facility] [address] [place] [address] Sebastian Rachel MD [address] [place] [address] 03/06/2025 1:15 PM EST Office Visit [facility] [address] [place] [facility] [address] [facility] [address] [place] [address] Kentrell Bell MD [address] [facility] [address] [place] [address] Scheduled Procedures Name Priority Associated Diagnoses Date/Ti me UPPER ENDOSCOPY WITH ENDOSCO PIC ULTRASOUND WITH POSSIBLE MODERATE SEDATION Elevated lipase Procedures * Due to [place] [employer] law, this organization might not be sharing negative HIV tests. Procedure Name Priority Date/Time Associated Diagnosis Comments SLEEP STUDY - SCANNED Routine 05/08/2024 12:15 PM EST from Last 3 Months Results * Due to [place] [employer] law, this organization might not be sharing negative HIV tests. * SLEEP STUDY - SCANNED (05/08/2024 12:15 PM EST) us Sebastian Rachel MD SCANNED PROCEDURES Final Resul t from Last [address] [place] [address] [address] Care Teams Credit Administration Specialist Relationship Specialty Start Date End Date Asha Dodge [address] [place] [address] PCP - General 07/15/23
--- OUTSIDE RECORDS SUMMARY | 2024-05-17 14:25 | XMS_ITS | Clinical Summary ---
Author Organization [facility] Address [address] [facility] [address] [place] [address] Phone Care Team Providers Care Manager Utilization Management Name Role Phone Kaylie Cardona MD Primary Care Provider [phone] Allergies No known active allergies Medications omeprazole [...] (#1) 2023 , 03/05/2019, 12/24/2016 Insurance [place] [address] [place] [id number] [place] Care Teams Manager Utilization Management Relationship Specialty Start Date End Date Kaylie Cardona MD PCP - General Family Medicine 05/04/22
--- OUTSIDE RECORDS SUMMARY | 2024-05-17 14:25 | XMS_ITS | Encounter Summary ---
Author Organization [employer] Address [address] [facility] 7t [place] [address] Care Team Providers Care Audit Control Clerk Name Role Phone Asha Dodge MD Primary Care Provider Reason for Referral * Consultation (Routine) - Canceled Specialty Diagnoses / Procedures Referred By Contladonna t Referred To Contact Endocrinology Diagnoses Right thyroid nodule Rosana Landeros MD [address] [place] [address] Phone: tel: fax: [facility] Endocrinology [address] [place] [address] Phone: tel: fax: Referral ID Status Reason Start Date Expiration Date Visits Requested Visits Authorized [id number] Canceled Specialty Services Required 03/27/2024 03/27/2025 6 6 Encounter Details Date Type Department Care Team ([facility] Contact Info) Description 03/27/2024 Orders Only [facility] [address] [place] [address] Rosana Landeros MD [address] [place] [address] Right thyroid nodule (Primary Dx) Social History [...] Description 08/13/2024 2:00 PM EDT Office Visit [facility] [address] [place] [address] Asha Dodge MD [address] [place] [address] Scheduled Referrals Name Type Priority Associated Diagnoses Order Schedule Referral to Endocrinology Outpatient Referral Routine Right thyroid nodule Expected: 03/27/2024 (Approximate), Expires: 03/27/2025 documented as of this encounter Visit Diagnoses Diagnosis Right thyroid nodule- Primary documented in this encounter Additional Health Concerns Assessment Noted Time PHQ-9 Depression Total Score: 3 06/03/19 24 3:02 PM EDT documented as of this encounter Care Teams Audit Control Clerk Relationship Specialty Start Date End Date Asha Dodge MD [address] [place] [address] PCP - General Family Medicine 12/29/22 documented as of this encounter
--- OUTSIDE RECORDS SUMMARY | 2024-05-17 14:25 | XMS_ITS | Encounter Summary ---
Author Organization [employer] Address [address] [facility] [address] 7[address] [place] [address] Care Team Providers Care Aerophysics Engineer Name Role Phone Asha Dodge MD Primary Care Provider [phone] Reason for Visit * Reason Onset Date Comments PT1 03/27/2024 Encounter Details Date Type Department Care Team ([facility] st Contact Info) Description 03/27/2024 Telephone [facility] [address] [place], [place] [phone] Asha Dodge MD [address] [place], [place] [phone] PT1 Social History Tobacco Use Types Packs/Day [...] a call back toclarify what's going on. [phone] * Telephone Encounter - Fiorella Garcia - 03/27/2024 2:00 PM EST Patient calling requesting PT1 Home Address verified: Y/N: Yes Provider name or facility name: [facility] Facility Address: [address] [place] [address] Escort needed: Y/N: No Do you have a wheelchair: Y/N: No If yes- Manual or electric: Visits: 4 times a month for 12 months documented in this encounter Plan of Treatment Upcoming Encounters Date Type Department Care Team (Late st Contact Info) Description 08/13/2024 2:00 PM EDT Office Visit [facility] [address] [place], [place] [phone] Asha Dodge MD [address] [place] [address] documented as of this encounter Visit Diagnoses Not on filedocumented in this encounter Additional Health Concerns Assessment Noted Time PHQ-9 Depression Total Score: 3 06/03/19 24 3:02 PM EDT documented as of this encounter Care Teams Aerophysics Engineer Relationship Specialty Start Date End Date Asha Dodeg MD [address] [place] [address] PCP - General Family Medicine 12/29/22 documented as of this encounter
--- OUTSIDE RECORDS SUMMARY | 2024-05-17 14:25 | XMS_ITS | Encounter Summary ---
Author Organization [facility] Address [address] [place] [address] Care Team Providers Care Dock Clerk Name Role Phone Asha Dodge Primary Care Provider [phone] Encounter Details Date Type Department Care Team (Late st Contact Info) Description 03/21/2023 Orders Only [facility] Interventional Radiology [address] [place] [address] Doug Hassan MD [address] [place] [address] Social History Tobacco Use Types Packs/Day Years [...] Description 07/23/2024 11:30 AM EDT Office Visit [facility] [address] [place] [address] Sebastian Rachel MD [address] [place] [address] 03/06/2025 1:15 PM EST Office Visit [facility] [address] [place] [address] [place] [address] Kentrell Bell MD 85 [facility] [address] [place] [address] Scheduled Procedures Name Priority Associated Diagnoses Date/Ti me UPPER ENDOSCOPY WITH ENDOSCO PIC ULTRASOUND WITH POSSIBLE MODERATE SEDATION Elevated lipase documented as of this encounter Visit Diagnoses Not on filedocumented in this encounter Care Teams Dock Clerk Relationship Specialty Start Date End Date Asha Dodge [address] [place] [address] PCP - General 07/15/23 documented as of this encounter
--- OUTSIDE RECORDS SUMMARY | 2024-05-17 14:25 | XMS_ITS | Clinical Summary ---
Author Organization [facility] Address [address] [place] [address] Care Team Providers Care Email Administrator Name Role Phone Unavailable Primary Care Provider [...]
--- OUTSIDE RECORDS SUMMARY | 2024-05-17 14:25 | XMS_ITS | Encounter Summary ---
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 year old male who presents for acute visit. Denies recent illness, ER visit, or hospitalization. Acute Concerns: Not making it to phlebotomy, rescheduled four times recently, still not scheduled Dr Perea, neurologist at [facility]. He is having memory loss/mild cognitive impairement. 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 Exercise intolerance as symptom of thisas well, start slowly with light cardio. Thyroid nodules Thyroid ultrasound 03/26/24: Location: Right medial. Size: [...] 02/24/2024 Will ask his Endo provider at [facility], Dr Kisha Eaton to biopsy Constipation Taking Metamucil daily Has Miralax for more severe symptoms 06/2023 CT abdomen 1. Significant urinary bladder distention, nonspecific. Correlate clinically for urinary retention. 2. Colonic diverticulosis but no evidence of acute diverticulitis. 3. Large stool ball in the rectum. Rashes - Hyperpigmented red macules on chest, not responsive to monotherapy with clotrimazole, miconazole,or triamcinolone. nystatin-triamcinolone cleared the rash - He notes that when then the rash is present, he also experiences coughing, sneezing, insomnia, and anxiety. - his apartment has mold mitigation, which did not resolve his symptoms - Skin redness after liquid nitrogen treatment on scalp and knee, uses steroid cream for comfort Renal cyst - may have it drained at [facility] with goal of treating secondary polycythemia vera [...] scheduling next phlebotomy, last was 01/02/24 in [facility] site - Diagnosed in [address] Spicer at [facility] elevated ferritin level of 1024 at that time, has seen multiple Hematologists Dr. Cunningham in [place], [place] and Dr Good and [facility], as well as Dr Spicer at [facility]. 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 Heme 09/2023 for second opinion, recommendations phlebotomy [...] clinically Anxiety He occasionally takes 0.5mg Lorazepam Discussed risks of tolerance and addiction and benefits, not indicated for long- term use. Has been on Celexa 5mg in the past, not helpful He feels it is related to severe insomnia and disregulated circadian rhythm 05/2023 genetics at [facility], recommend pharmacogenomics at [facility] based on possible tailored therapy for anti-depressant, anti-anxiety, and anti-cholesterol. 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 Social History Social History Narrative Not on file Review of Systems Constitutional: Negative. Respiratory: Negative. Cardiovascular: Negative. Skin: Negative. Psychiatric/Behavioral: Positive for dysphoric mood and sleep disturbance. The patient is nervous/anxious. OBJECTIVE: Vitals: 05/09/24 1121 BP: (!) 148/97 BP Location: Left arm Patient Position: Sitting BP Cuff Size: Adult Pulse: 87 Resp: 18 Temp: 97.3 ??F (36.3 ??C) TempSrc: Oral Weight: 187 lb 3.2 oz (84.9 kg) Height: 5' 11 (1.803 m) Physical Exam Vitals and nursing note reviewed. Constitutional: Appearance: Normal appearance. He is normal weight. HENT: Head: Normocephalic and atraumatic. Mouth/Throat: Mouth: Mucous membranes are moist. Pharynx: Oropharynx is clear. Cardiovascular: Rate and Rhythm: Normal rate and regular rhythm. Pulses: Normal pulses. Heart sounds: Normal heart sounds. Pulmonary: Effort: Pulmonary effort is normal. Breath sounds: Normal breath sounds. Musculoskeletal: Cervical back: Normal range of motion and neck supple. Skin: General: Skin is warm and dry. Capillary Refill: Capillary refill takes less than 2 seconds. Comments: Veronica derm Neurological: General: No focal deficit present. Mental Status: He is alert and oriented to person, place, and time. Psychiatric: Mood and Affect: Mood normal. Behavior: Behavior normal. 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) Mild cognitive impairment - Primary Current Assessment & Plan Ordered TSH, RPR, Vit B12/folate MRI brain is within last year, will not repeat After labs return to Neurology at [facility] Discussed that lack of exercise/movement impairs blood flow to the brain Consider low dose statin for CAD/microvessal disease prevention as well Relevant Orders CBC auto differential Ferritin Vitamin B12/Folate, Serum Panel TSH W/Reflex to FT4 RPR (Monitor) with Reflex to Titer Follow Up: 3 months or sooner prn Allergies Allergen Reactions Allevyn Adhesive [Wound Dressings] Wound Dressing Adhesive Other reaction(s): Unknown Beta Adrenergic Blockers Palpitations Side effect only/ dc'd Flagyl [Metronidazole] Itching Fluorouracil Rash Current Outpatient Medications: albuterol (ProAir HFA) 108 (90 Base) MCG/ACT [...] and replace cap., Disp: 16 g, Rfl:2 gabapentin (Neurontin) 100 MG capsule, take 1 capsule by mouth at bedtime as needed for sleep, Disp: , Rfl: lidocaine (Xylocaine) 5 % ointment, Apply topically if needed for mild pain (prior to phlebotomy).,Disp: 50 g, Rfl: 11 loratadine (Claritin) 10 MG tablet, Take 1 tablet (10 mg) by mouth Once per day., Disp: 30 tablet, Rfl: 11 LORazepam (Ativan) 0.5 MG tablet, Take 1 tablet (0.5 mg) by mouth if needed each day for anxiety for up to 10 days., Disp: 10 tablet, Rfl: 0 Magnesium Oxide -Mg Supplement 500 MG capsule, TAKE 1 TABLET (30 MG) BY MOUTH ONCE PER DAY., Disp: 30 capsule, Rfl: 11 nystatin-triamcinolone (Mycolog II) ointment, APPLY TO AFFECTED AREA TWICE A DAY, Disp: 15 g, Rfl: 0 polyethylene glycol, PEG, 3350 (Glycolax) 17 GM/SCOOP powder, Take 17 g by mouth Once per day., Disp: 510 g, Rfl: 1 thiamine (Vitamin B-1) 100 MG tablet, Take 1 tablet (100 mg) by mouth Once per day., Disp: 90 tablet, Rfl: 3 documented in this encounter Miscellaneous Notes * Assessment & Plan Note - Asha Dodge MD - 05/11/2024 6:40 AM EST Associated Problem(s): Mild cognitive impairment Ordered TSH, RPR, Vit B12/folate MRI brain is within last year, will not repeat After labs return to Neurology at [facility] Discussed that lack of exercise/movement impairs blood flow to the brain Consider low dose statin for CAD/microvessal disease prevention as well * Assessment & Plan Note - Asha Dodge MD - 05/11/2024 6:34 AM ESTAssociated Problem(s): Essential (primary) hypertension Continue to monitor at home Controlled <140/90 generally at home Consider biofeedback for increased self management of anxiety/autonomic storm symptoms Ideally would be on low dose beta michael as well Low dose statin, or even every other day dosing documented in this encounter Plan of Treatment Upcoming Encounters Date Type Department Care Team (Late st Contact Info) Description 08/13/2024 2:00 PM EDT Office Visit [facility] [address] [place] [address] Asha Dodge MD [address] [place] [address] Scheduled Orders Name Type Priority Associated Diagnoses Orde r Schedule RPR (Monitor) with Reflex to??Titer Lab Routine Mild cognitive impairment Expected: 05/09/2024, Expires: 05/09/2025 documented as of this encounter Procedures Procedure Name Priority Date/Time Associated Diagnosis Comments VITAMIN B12/FOLATE, SERUM PANEL Routine 05/17/2024 11:40 AM EDT Mild cognitive impairment TSH W/REFLEX TO FT4 Routine 05/17/2024 1 1:40 AM EDT Mild cognitive impairment CBC WITH AUTO DIFFERENTIAL Routine 05/17/2024 11:40 AM EDT Mild cognitive impairment FERRITIN Routine 05/17/2024 11:40 AM EDT Mild cognitive impairment documented in this encounter Results * TSH W/Reflex to FT4 (05/17/2024 11:40 AM EDT) TSH reflex Free T4 1.67 0.32 - 4.0 uIU/mL [facility] Blood Venous blood specimen / Unknown 05/17/2024 11:40 AM EDT 05/17/2024 11:40 AM EDT sAha Dodge MD LAB BLOOD ORDERABLES Final Res ult [facility] [address] [place] [phone] * Vitamin B12/Folate, Serum Panel (05/17/2024 11:40 AM EDT) Vitamin B12 640 200 - 900 pg/mL [facility] Comment:NORMAL 200-900 PG/ML INDETERMINATE 160-199 PG/ML DEFICIENT < 160 PG/ML Folate 4.1 > or = 4.0 ng/mL [facility] Comment:Reference Values:> o r = [...] ORDERABLES Final Res ult Performing Organization Address City/[facility]/ZIP Co de Phone Number [facility] [address] [place] [address] [phone] * (ABNORMAL) Ferritin (05/17/2024 11:40 AM EDT) Pathologist [facility] Ferritin 348(H) 20 - 250 ng/mL [facility] Blood Venous blood specimen / Unknown 05/17/2024 11:40 AM EDT 05/17/2024 11:40 AM EDT Asha Dodge MD LAB BLOOD ORDERABLES Final Res ult Performing Organization Address [facility] Co de Phone Number [facility] [address] [place] [address] [phone] * (ABNORMAL) CBC auto differential (05/17/2024 11:40 AM EDT) [facility] White Blood Count 5.2 4.8 - 10.8 X10*3/uL [facility] Red Blood Count 5.56 4.60 - 5.80 X10*6/uL [facility] Hemoglobin 18.0 14.0 - 18.0 g/dl [facility] Hematocrit 49.1 42.0 - 52.0 % [facility] Mean Corpuscular Volume 88.3 80.0 - 98.0 fL [facility] Mean Corpuscular Hemoglobin 32.4 27.0 - 33.0 pg [facility] Mean Corpuscular HGB Conc 36.7(H) 31.0 - 36.0 g/dl [facility] Red Cell Distribution Width 11.9 11.0 - 16.0 % [facility] Platelet Count 220 160 - 400 X10*3/uL [facility] Mean Platelet Volume 9.5 9.4 - 12.4 fL [facility] Neutrophils Percent Auto 54.8 45 - 73 % [facility] Imm Gran Pct Auto 0.4 0.0 - 0.4 % [facility] Lymphocytes Percent Auto 36.4 20 - 40 % [facility] Monocytes Percent Auto 5.9 2 - 11 % [facility] Eosinophils Percent Auto 1.7 0 - 4 % [facility] Basophils Percent Auto 0.8 0 - 2 % [facility] NRBC Pct Auto 0.0 0.0 - 0.2 /100WBC [facility] Neutrophils Absolute Auto 2.9 2.0 - 8.3 x10*3/uL [facility] Imm Gran Abs Auto 0.02 0.00 - 0.03 X10*3/uL [facility] Lymphocytes Absolute Auto 1.9 1.2 - 4.9 X10*3/uL [facility] Monocytes Absolute Auto 0.3 0.1 - 1.2 X10*3/uL [facility] Eosinophils Absolute Auto 0.1 0.0 - 0.4 X10*3/uL [facility] Basophils Absolute Auto 0.0 0.0 - 0.2 X10*3/uL [facility] NRBC Abs Auto 0.000 0.0 - 0.012 X10*3/uL [facility] Blood Venous blood specimen / Unknown 05/17/2024 11:40 AM EDT 05/17/2024 11:40 AM EDT us Asha Dodge MD LAB BLOOD ORDERABLES Final Res ult Performing Organization Address City/State/[facility] Co de Phone Number [facility] [address] [place] [phone] documented in this encounter Visit Diagnoses Diagnosis Mild cognitive impairment- Primary Mild cognitive impairment, so stated Anxiety Anxiety state, unspecified 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
--- OUTSIDE RECORDS SUMMARY | 2024-05-17 14:25 | XMS_ITS | Encounter Summary ---
Author Organization [employer] Address [address] [place] [address] Care Team Providers Care Retouching Operator Name Role Phone Asha Dodge MD Primary Care Provider [phone] Reason for Visit * Reason Onset Date Comments Referral 04/11/2024 Encounter Details Date Type Department Care Team ([facility] st Contact Info) Description 04/11/2024 Telephone [facility] [address] [place], [place] [phone] Asha Dodge MD [address] [place], [place] [phone] Referral Social History Tobacco Use Types Packs/Day [...] 9:49 AM EST TC returned to Yasmeen [phone] in regards to below message. Yasmeen reports she is affiliated with [facility] neurology and the provider Dr. Eddi Rachel ordered a sleep study which is scheduled for 05/02/24 at [facility]. [facility] neurology reports they were informed [facility] needs a referral from PCP office for sleep study. RN called [facility] CS at [phone] to inquire on what is needed from PCP office. RN was informed [facility] needs a [facility] PCC referral (R #). Please submit to [facility]. Thank you! * Telephone Encounter - Yessy Olvera - 04/12/2024 9:29 AM EST Tc from Yasmeen stating received a call from nurses. [phone] * Telephone Encounter - Thony Rosenberg - 04/11/2024 3:29 PM EST TC from Yasmeen with [facility] Neurology reports pt is scheduled for a Sleep study at [facility] on 05/02/24. [facility] is requesting a referral from PCP . documented in this encounter Plan of Treatment Upcoming Encounters Date Type Department Care Team (Late st Contact Info) Description 08/13/2024 2:00 PM EDT Office Visit [facility] [address] [place] [address] Asha Dodge MD [address] [place] [address] documented as of this encounter Visit Diagnoses Not on filedocumented in this encounter Additional Health Concerns Assessment Noted Time PHQ-9 Depression Total Score: 3 06/03/19 24 3:02 PM EDT documented as of this encounter Care Teams Retouching Operator Relationship Specialty Start Date End Date Asha Dodge MD [address] [place] [address] PCP - General Family Medicine 12/29/22 documented as of this encounter
--- OUTSIDE RECORDS SUMMARY | 2024-05-17 14:25 | XMS_ITS | Encounter Summary ---
Author Organization [employer] Address [address] [place] [address] Care Team Providers Care Track Maintainer Name Role Phone Asha Dodge MD Primary Care Provider [phone] Encounter Details Date Type Department Care Team [...] Description 08/13/2024 2:00 PM EDT Office Visit [facility] [address] [place] [address] Asha Dodge MD [address] [place] [address] documented as of this encounter Visit Diagnoses Not on filedocumented in this encounter Additional Health Concerns Assessment Noted Time PHQ-9 Depression Total Score: 3 06/03/19 24 3:02 PM EDT documented as of this encounter Care Teams Track Maintainer Relationship Specialty Start Date End Date Asha Dodge MD [address] [place] [address] PCP - General Family Medicine 12/29/22 documented as of this encounter
--- OUTSIDE RECORDS SUMMARY | 2024-05-17 14:25 | XMS_ITS | Encounter Summary ---
Author Organization [employer] Address [address] [place] [address] Care Team Providers Care Anesthesiology Faculty Name Role Phone Asha Dodge MD Primary Care Provider [phone] Reason for Visit * Reason Onset Date Comments PT1 05/09/2024 Encounter Details Date Type Department Care Team (Late st Contact Info) Description 05/09/2024 Telephone [facility] [address] [place], [place] [phone] Asha Dodge MD [address] [place], [place] [phone] PT1 Social History Tobacco Use Types Packs/Day [...] Miscellaneous Notes * Telephone Encounter - Cristina Jose - 05/09/2024 11:18 AM EST Patient walked in requesting to renew PT1 before it expires. Home Address verified: Y/N: Yes Provider name or facility name: [facility] Facility Address: [address] [place] [address] Escort needed: Y/N: No Do you have a wheelchair: Y/N: No If yes- Manual or electric: no documented in this encounter Plan of Treatment Upcoming Encounters Date Type Department Care Team (Late st Contact Info) Description 08/13/2024 2:00 PM EDT Office Visit [facility] [address] [place] [address] Asha Dodge MD [address] [place] [phone] documented as of this encounter Visit Diagnoses Not on filedocumented in this encounter Additional Health Concerns Assessment Noted Time PHQ-9 Depression Total Score: 3 06/03/19 24 3:02 PM EDT documented as of this encounter Care Teams Anesthesiology Faculty Relationship Specialty Start Date End Date Asha Dodge MD [address] [place] [phone] PCP - General Family Medicine 12/29/22 documented as of this encounter
--- OUTSIDE RECORDS SUMMARY | 2024-05-17 14:25 | XMS_ITS | Encounter Summary ---
Author Organization [employer] Address [address] [place] [address] Care Team Providers Care Italian Teacher Name Role Phone Asha Dodge MD Primary Care Provider [phone] Reason for Visit * Reason Onset Date Comments Durable Medical Equipment 05/01/2024 DME Bl ood Pressure Monitor Encounter Details Date Type Department Care Team (Late st Contact Info) Description 05/01/2024 Telephone [facility] [address] [place], [place] [phone] Asha Dodge MD [address] [place], [place] [phone] Durable Medical Equipment (DME Blood Pressure Monitor) [...] please advise them to contact Rex at [phone]. * Telephone Encounter - Sahara Herbert - 05/01/2024 11:12 AM EST DME RX for Blood Pressure Monitor generated and placed on providers desk for signature. documented in this encounter Plan of Treatment Upcoming Encounters Date Type Department Care Team (Late st Contact Info) Description 08/13/2024 2:00 PM EDT Office Visit [facility] [address] [place] [address] Asha Dodge MD [address] [place] [address] documented as of this encounter Visit Diagnoses Not on filedocumented in this encounter Additional Health Concerns Assessment Noted Time PHQ-9 Depression Total Score: 3 06/03/19 24 3:02 PM EDT documented as of this encounter Care Teams Italian Teacher Relationship Specialty Start Date End Date Asha Dodge MD [address] [place] [address] PCP - General Family Medicine 12/29/22 documented as of this encounter
--- OUTSIDE RECORDS SUMMARY | 2024-05-17 14:25 | XMS_ITS | Encounter Summary ---
Author Organization [employer] Address [address] [place] [address] Care Team Providers Care Supervisor Liquid Yeast Name Role Phone Asha Dodge MD Primary Care Provider [phone] Reason for Visit * Reason Comments Care Coordination CHW outreach for SDO H PT-1 and food needs-referral completed Encounter Details Date Type Department Care Team (Latest Contact Info) Description 05/10/2024 Patient Outreach [facility] [address] [place] [address] Asha Dodge MD [address] [place] [address] Care Coordination (CHW outreach for SDOH PT-1 [...] Progress Notes * Jose A Artis - 05/10/2024 2:17 PM EST CHW Jose A Artis, placed outbound call to patient for assistance with SDOH as a referral was received by the provider. Patient's name and were confirmed. Patient screened positive for the following SDOH food insecurities. CHW referral patient to the local list of pantries in the area for help. PT-1 requested was send out in behalf of patient for futures appt. [facility] [address] Patient verbalizes understanding, and able to agree with plan to follow up. Patient educated on extended clinic hours on Mondays through Wednesdays, and Walk-In Urgent Care Located in [facility]. Patient provided with after-hours line for [facility], , which offer night time triage service and option to transfer to telephone station installer provider if needed. documented in this encounter Plan of Treatment Upcoming Encounters Date Type Department Care Team (Late st Contact Info) Description 08/13/2024 2:00 PM EDT Office Visit [facility] [address] [place] [address] Asha Dodge MD [address] [place] [address] documented as of this encounter Visit Diagnoses Not on filedocumented in this encounter Additional Health Concerns Assessment Noted Time PHQ-9 Depression Total Score: 3 06/03/19 24 3:02 PM EDT documented as of this encounter Care Teams Supervisor Liquid Yeast Relationship Specialty Start Date End Date Asha Dodge MD [address] [place] [address] PCP - General Family Medicine 12/29/22 documented as of this encounter
--- OUTSIDE RECORDS SUMMARY | 2024-05-17 14:25 | XMS_ITS | Encounter Summary ---
Author Organization [facility] Address [address] [place] [address] Care Team Providers Care Rock Mason Name Role Phone Asha Dodge Primary Care Provider [phone] Encounter Details Date Type Department Care Team (Late st Contact Info) Description 05/11/2024 Telephone [facility] [address] [place] [address] Telephone Intake, Staff Social History Tobacco Use [...] encounter Miscellaneous Notes * Telephone Encounter - HERBIE Flynn - 05/14/2024 11:43 AM EDT Called patient to let him know that we have not received the report of his sleep study. He will contact [facility] to request the report to be faxed to Dr. Rachel. * Telephone Encounter - Raghu Angel - 05/11/2024 2:45 PM EST NEURO TRIAGE CALL PATIENT: Arben Emanuel NAME OF CALLER Self BEST CALL BACK PHONE NUMBER: [phone] PATIENT'S NEUROLOGIST: Dr. Rachel REASON FOR CALL: Sleep study results BRIEF DESCRIPTION OF REASON FOR CALL: Received call from pt regarding sleep study that was suppose to sent over from [facility], and was questioning if dr has been able to review results. Pleaseadvise thank you. IF PATIENT IS EXHIBITING SYMPTOMS ARE THESE NEW SYMPTOMS? UPCOMING APPOINTMENTS: Future Appointments Date Time Provider Department Center 07/23/2024 11:30 AM Sebastian Rachel MD [facility] [place] Message will be sent to [facility] NEUROLOGY NURSING pool or appropriate nurse navigator Neurovascular/Stroke: Wen Mixon RN Epilepsy/Seizure: Leena Dumas RN Neuromuscular/Movement: Amarilis Ca RN Cognitive: Doug Orellana LPN documented in this encounter Plan of Treatment Upcoming Encounters Date Type Department Care Team (Late st Contact Info) Description 07/23/2024 11:30 AM EDT Office Visit [facility] [address] [place] [address] Sebastian Rachel MD [address] [place] [address] 03/06/2025 1:15 PM EST Office Visit [facility] [address] [place] [facility] [address] [place] [address] Kentrell Bell MD [address] [address] Scheduled Procedures Name Priority Associated Diagnoses Date/Ti me UPPER ENDOSCOPY WITH ENDOSCO PIC ULTRASOUND WITH POSSIBLE MODERATE SEDATION Elevated lipase documented as of this encounter Visit Diagnoses Not on filedocumented in this encounter Care Teams Rock Mason Relationship Specialty Start Date End Date Asha Dodge [address] [place] [address] PCP - General 07/15/23 documented as of this encounter
--- OUTSIDE RECORDS SUMMARY | 2024-05-17 14:25 | XMS_ITS | Encounter Summary ---
Author Organization [employer] Address [address] [place] [address] Care Team Providers Care Stylist Assistant Name Role Phone Asha Dodge MD Primary Care Provider [phone] Reason for Visit * Reason Onset Date Comments PT1 05/10/2024 Encounter Details Date Type Department Care Team ([facility] st Contact Info) Description 05/10/2024 Telephone [facility] [address] [place], [place] [phone] Asha Dodge MD [address] [place], [place] [phone] PT1 Social History Tobacco Use Types Packs/Day [...] is your housing situation today? I have biranna jarrod 03/16/[address] you [...] * Telephone Encounter - Fiorella Garcia - 05/10/2024 1:55 PM EST Patient calling requesting PT1 Home Address verified: Y/N: Yes Provider name or facility name: [facility] Address: [address] [place] [address] Escort needed: Y/N: No Do you have a wheelchair: Y/N: No If yes- Manual or electric: n/a Visits: 2 a month 12 months documented in this encounter Plan of Treatment Upcoming Encounters Date Type Department Care Team (Late st Contact Info) Description 08/13/2024 2:00 PM EDT Office Visit [facility] [address] [place] [address] Asha Dodge MD [address] [place] [address] documented as of this encounter Visit Diagnoses Not on filedocumented in this encounter Additional Health Concerns Assessment Noted Time PHQ-9 Depression Total Score: 3 06/03/19 24 3:02 PM EDT documented as of this encounter Care Teams Stylist Assistant Relationship Specialty Start Date End Date Asha Dodge MD [address] [place] [address] PCP - General Family Medicine 12/29/22 documented as of this encounter
--- OUTSIDE RECORDS SUMMARY | 2024-05-17 14:25 | XMS_ITS | Encounter Summary ---
Author Organization [facility] Address [address] [place] [address] Care Team Providers Care Cooker Chip Name Role Phone Asha Dodge Primary Care Provider [phone] Encounter Details Date Type Department Care Team (Late st Contact Info) Description 05/15/2024 myChart Message [facility] [address] [place] [address] Yasmeen Villar, [facility] Results Social History Tobacco Use Types Packs/Day [...] Description 07/23/2024 11:30 AM EDT Office Visit [facility] [address] [place] [address] Sebastian Rachel MD [address] [place] [address] 03/06/2025 1:15 PM EST Office Visit [facility] [address] [place] [facility] [address] [address] Kentrell Bell MD 85 [facility] [address] [place] [address] Scheduled Procedures Name Priority Associated Diagnoses Date/Ti me UPPER ENDOSCOPY WITH ENDOSCO PIC ULTRASOUND WITH POSSIBLE MODERATE SEDATION Elevated lipase documented as of this encounter Visit Diagnoses Not on filedocumented in this encounter Care Teams Cooker Chip Relationship Specialty Start Date End Date Asha Dodge [address] [place] [address] PCP - General 07/15/23 documented as of this encounter
--- OUTSIDE RECORDS SUMMARY | 2024-05-17 14:25 | XMS_ITS | Encounter Summary ---
Author Organization [facility] Address [address] [place] [address] Care Team Providers Care Ic Designer Gate Arrays Name Role Phone Asha Dodge Primary Care Provider [phone] Encounter Details Date Type Department Care Team (Late st Contact Info) Description 07/17/2021 Orders Only [facility] [address] [place] [address] Brendan Kaylie [address] [place] [address] Social History Tobacco Use Types Packs/Day Years [...] Description 07/23/2024 11:30 AM EDT Office Visit [facility] [address] [place] [address] Sebastian Rachel MD [address] [place] [address] 03/06/2025 1:15 PM EST Office Visit [facility] [address] [place] [facility] [address] [address] Kentrell Bell MD 85 [facility] [address] [place] [address] Scheduled Procedures Name Priority Associated Diagnoses Date/Ti me UPPER ENDOSCOPY WITH ENDOSCO PIC ULTRASOUND WITH POSSIBLE MODERATE SEDATION Elevated lipase documented as of this encounter Procedures * Due to [facility] law, this organization might not be sharing negative HIV tests. Procedure Name Priority Date/Time Associated Diagnosis Comments LAB - SCANNED Routine 04/08/2021 documented in this encounter Results * Due to [place] [employer] law, this organization might not be sharing negative HIV tests. * LAB - SCANNED (04/08/2021) us Kaylie Cardona LAB HISTORICAL RESULTS Final Res ult documented in this encounter Visit Diagnoses Not on filedocumented in this encounter Care Teams Ic Designer Gate Arrays Relationship Specialty Start Date End Date Asha Dodge [address] [place] [address] PCP - General 07/15/23 documented as of this encounter
--- OUTSIDE RECORDS SUMMARY | 2024-05-17 14:25 | XMS_ITS | Encounter Summary ---
Author Organization [facility] Address [address] [place] [address] Care Team Providers Care Bed Manager Name Role Phone Asha Dodge Primary Care Provider [phone] Encounter Details Date Type Department Care Team (Late st Contact Info) Description 02/17/2022 Telephone [facility] [address] [place] [address] Telephone Intake, Staff Social History Tobacco Use [...] side No symptoms on the right side Blocking Machine Operator thought he may have viral [...] in arms * Telephone Encounter - Mary Alanizt - 02/17/2022 11:37 AM EST PT scheduled follow up with Dr. Perea for May, but has questions about trimenial neuralgia that he spoke to advisory internship about. Please follow up with PT at [phone]. documented in this encounter Plan of Treatment Upcoming Encounters Date Type Department Care Team (Late st Contact Info) Description 07/23/2024 11:30 AM EDT Office Visit [facility] [address] [place] [address] Sebastian Rachel MD [address] [place] [address] 03/06/2025 1:15 PM EST Office Visit [facility] [address] [place] [facility] [address] [place] [address] Kentrell Bell MD [address] [address] Scheduled Procedures Name Priority Associated Diagnoses Date/Ti me UPPER ENDOSCOPY WITH ENDOSCO PIC ULTRASOUND WITH POSSIBLE MODERATE SEDATION Elevated lipase documented as of this encounter Visit Diagnoses Not on filedocumented in this encounter Care Teams Bed Manager Relationship Specialty Start Date End Date Asha Dodge [address] [place] [address] PCP - General 07/15/23 documented as of this encounter
[2024-05-18 12:19] LABS: RPR Rapid Plasma Reagin NON-REACTIVE (NON-REACTIVE)
== END 2024-05-17 11:13 | disposition home or self-care (01) ==
LOC: HO.LAB 11:12
PROVIDERS: PCP General Practice; Visit Provider General Practice
DX: E83.110 Hereditary hemochromatosis (principal); G31.84 Mild cognitive impairment of uncertain or unknown etiology
CPT/HCPCS: 36415; 82607; 82728; 82746; 84443; 85025; 86592

== ENCOUNTER → 2024-05-21 10:44 | Outpatient (BNVA) | payer MEDICAID, SELFPAY | PROVIDERS: Visit Provider Urology | DX: R79.89 Other specified abnormal findings of blood chemistry (principal) ==

== ENCOUNTER 2024-06-04 07:38 | Outpatient (AMB) | payer MEDICAID, SELFPAY ==
--- NOTE | 2024-06-04 07:41 | A.OFFVIS_ITS ---
Intake Visit Reasons: discuss blisters on scrotum Door Frame Builder Required: No Allergies Pqvjtfu-MEB-MyA Reductase Inhibitor Allergy (Verified 02/27/24 23:19) Palpitations rosuvastatin Adverse Reaction (Mild, Verified 02/27/24 23:19) Unknown metronidazole [From Flagyl] Adverse Reaction (Unknown, Verified 02/27/24 23:19) Nausea, sweats, Diarrhea Medication List - Last Reconciled 06/04/[address] MD cholecalciferol (vitamin D3) 10,000 units PO GARCIA@2100 famotidine (Pepcid) 20 mg PO BEDTIME gabapentin 100 mg PO BEDTIME PRN lorazepam 0.5 mg PO BEDTIME PRN polyethylene glycol 3350 (Miralax) 17 grams PO DAILY sodium,potassium,mag sulfates 17.5-3.13-1.6 gram (Suprep Bowel Prep Kit) DILUTE; drink 1/2 at 6-8 pm and half at 11 PM- 1AM triamcinolone acetonide 0.025% 1 appl topical BID PRN HPI Comments Details: 06/04/24--FU to discuss scrotal skin blisters. The patient states he has noticed blood vessel skin blisters on his scrotum that come and go. I have discussed referring him to Dermatology. The patient states that he has an upcoming dermatology appointment due to some issues related to his foot. He will send the route delivery driver name and contact info through the portal as he can not locate the information at the current time during our visit appointment. 03/31/23- Arben is a 36-year-old male who presents to the office for discussion of renal US and testosterone blood work test results. Discussed that hemochromatosis can have affect on FSH and LH production leading to hypogonadism Discussed his levels are within normal limits. Will monitor Pt stopped cialis, had venous engorgement Pt states he has seen a Paint Factory Worker in [place] for kidney cysts 09/06/22--Arben is a 36-year-old male who presents to the clinic for follow up for renal cyst and ED. LV--05/28/2022--The patient complains inability maintain erections. Since he was seen in May he states he has taken multivitamins with maderate benefits for a while. The patient is states problem started since the last blood withdrawal procedure on March 10. States being light-headedness and dizzy when try to attempt it. States having chronic gas and bloating along with constipation. PMH- hemochromatosis. The patient has a previous history of STD infection, He was treated for STD with doxycycline hyclate. The patient is following up with his sliver chopper for hemochromatosis. Has a history of kidney disease in his family. his grandmother has poly cystic kidney disease. Discussed recent renal US-- right renal cyst c/w benign simple cyst - no follow up imaging required Review of chart: CAT scan results reviewed--07/21/21--Bilateral Bosniak class I renal cysts are present. CAT scan results reviewed--08/05/20--Bilateral renal cysts without radiopaque calculi or hydronephrosis. USG--03/26/21--RIGHT KIDNEY: Midpole cyst. 2.4 x 2.3 x 3.4 cm noted. Plan-- Monitor labs- Testosterone, FH, LH, PFSH Medical History 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 Thrombosed external hemorrhoid Autosomal dominant hereditary hemochromatosis Mild intermittent allergic 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 Mood disorder Dizziness Paresthesia Thyroid nodule Anxiety HTN (hypertension) Surgical History Hx of colonoscopy S/P fine needle aspiration Hx of wisdom tooth extraction Family History Father CLL (chronic lymphocytic leukemia) Diabetes Paternal Grandfather Diabetes Maternal Grandmother H/O heart bypass surgery Mother Drug abuse Social History Household Members: None Housing: Apartment Are you a primary hemodialysis patient care specialist to a significant other at home: No Do you presently have visiting nurse or other home services: No Alcohol intake: never Patient Tobacco Use Status: Never used Tobacco service: No Current occupational status: unemployed Review of Systems Const All systems reviewed & are unremarkable except as noted in HPI and below Reports no additional complaints Eyes Reports no additional complaints ENT Reports no additional complaints Card Reports no additional complaints Resp Reports no additional complaints GI Reports no additional complaints Reports as per HPI Musc Reports no additional complaints Skin/Breast Reports system reviewed and no additional complaints, except as documented Neuro Reports no additional complaints Psych Reports no additional complaints Endo Reports no additional complaints Douglas/Lymph Reports no additional complaints Aller/Immun Reports no additional complaints Telehealth Telehealth Telehealth Platform: [facility] Location of provider rendering services: practice address Location of patient: address on file Patient Identification confirmed using: Name, : Yes Telehealth method: video Patient verbally consented to treatment: Yes Patient verbally consented to billing insurance company: Yes Patient informed of any privacy concerns related to visit: Yes Assessment & Plan Assessment & Plan (1) Hemochromatosis: Code(s): E83.119 - Hemochromatosis, unspecified Category: Medical Qualifiers: Hemochromatosis type: hereditary Qualified Code(s): E83.110 - Hereditary hemochromatosis (2) Disorder of skin of scrotum: Code(s): L98.9 - Disorder of the skin and subcutaneous tissue, unspecified Category: Medical Plan Refer to dermatology Patient Instructions: The patient had an opportunity to ask questions regarding treatment plan. The patient expressed understanding and agreement with the above treatment plan. The patient is aware they should contact our office by phone for worsening of their current condition or the appearance of new symptoms. Compliance is encouraged with any medications and followup testing that is ordered. It is a privilege to be allowed the opportunity to participate in the urologic care of your patient. If you have any questions or concerns regarding treatment for the above conditions please do not hesitate to contact me. The office telephone contact is [phone]. This note is constructed in part using voice recognition software. While every effort has been made to ensure accuracy rehab department manager errors may have been included. Yours sincerely, Neri Lane MD Coding Level of Care Code Tele Est Pt Level 3 (03946) Diagnoses Hereditary hemochromatosis E83.110 Hemochromatosis type: hereditary Disorder of skin of scrotum L98.9
== END 2024-06-04 08:25 | disposition home or self-care (01) ==
LOC: HO.HUSH 07:38
PROVIDERS: PCP General Practice; Visit Provider Urology
DX: E83.110 Hereditary hemochromatosis (principal); L98.9 Disorder of the skin and subcutaneous tissue, unspecified
CPT/HCPCS: 99213

== ENCOUNTER 2024-09-03 12:12 | Outpatient (AMB) | payer MEDICAID, SELFPAY ==
--- NOTE | 2024-09-03 12:25 | A.OFFVIS_ITS ---
Vital Signs 09/03/24 12:29 Height 5 ft 11 in Weight 178 lb BMI 24.8 Comment Patient refuse vital sign Intake Visit Reasons: 6 month follow up Intake Note: Patient 6 month follow up. Patient cc: abdominal bloating, acid reflux with burning sensation, constipation and denies any other GI issues for today. Printed Circuit Board Panels Developer Required: No Accompanied by: Self / Same As Patient Allergies [id number]-GUY-FsM Reductase Inhibitor Allergy (Intermediate, Verified 09/03/24 1 2:25) Palpitations metronidazole (From Flagyl) Adverse Reaction (Intermediate, Verified 09/03/24 12:25) Nausea, sweats, Diarrhea HPI HPI 6 month follow up: Details: 38 yr old m w/ of GERD< hemochromatosis, IBS here for f/u RECAP: he is only taking famotidine 20 mg OD prn he is noting thin stools and diarrhea he was having constipation before this he had colonoscopy 2020 for abn bowel habit and was normal EGD with esophagitis and erosive gastritis labs with mild lipase elevation and amylase --nml LFT, HGB 18 g/dl had MRI scanned 06/28 with moderate iron overload and normal pancreas INTERIM: general discussion about hemachromatosis he has q 3 weekly phlebotomy - Dr Juliana Sim he has bloating otherwise ok he was unable to take PPI and famotidine he has homocysteinemia EXAM: GENERAL: The patient is well developed and nontoxic. VITAL SIGNS:see workflow HEENT: Nonicteric sclerae, PERRLA, EOMI. Oropharynx clear. Moist mucous membranes. Conjunctivae appear well perfused. No thyroid mass. CHEST: Chest wall is nontender. HEART: Regular rate and rhythm without murmurs. LUNGS: Clear to auscultation bilaterally. ABDOMEN: Soft, positive bowel sounds, tender epigastrium, no organomegaly.no flank tenderness SKIN: veronica dermatitis with scaly skin, NEUROLOGIC: Cranial nerves II-XII intact without motor/sensory deficit. Psych: normal affect A/P: 1/ Polycythemia, 2/ bloating PLAN: 1/ trial of rifaximin 2/ long discussion about factors affecting ferritin inlc inflammation, obesity 3/ change PPI to esomeprazole 4/ consider rept EGD [facility] Medical History (Updated 07/02/24 @ 14:35 by Charleen Valero RN) DVT (deep venous thrombosis) 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 Thrombosed external hemorrhoid Autosomal dominant hereditary hemochromatosis Mild intermittent allergic 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 Mood disorder Dizziness Paresthesia Thyroid nodule Anxiety HTN (hypertension) Surgical History History of esophagogastroduodenoscopy (EGD) Hx of colonoscopy S/P fine needle aspiration Hx of wisdom tooth extraction Family History Father CLL (chronic lymphocytic leukemia) Diabetes Paternal Grandfather Diabetes Maternal Grandmother H/O heart bypass surgery Mother Drug abuse Social History Household Members: None Housing: Apartment Are you a primary dog day care attendant to a significant other at home: No Do you presently have visiting nurse or other home services: No Alcohol intake: never Patient Tobacco Use Status: Never used Tobacco service: No Current occupational status: unemployed Physical Exam Vital Signs: BMI result Body Mass Index 24.8 Assessment & Plan Assessment & Plan (1) Hemochromatosis: Code(s): E83.119 - Hemochromatosis, unspecified Category: Medical Qualifiers: Hemochromatosis type: hereditary Qualified Code(s): E83.110 - Hereditary hemochromatosis Plan: as above Medications: New esomeprazole magnesium 20 mg PO DAILY 30 caps 3RF rifaximin 550 mg PO TID 42 tabs 0RF 2 weeks levomefolate-algal oil 15-90.314 mg (L-Methylfolate Forte) 1 cap PO DAILY 30 caps 2RF cholecalciferol (vitamin D3) 1,250 mcg PO QWEEK 8 caps 0RF Discontinued famotidine (Pepcid) Discontinued Reason: Doctor's Order 20 mg PO BEDTIME 30 tabs 0RF Coding Level of Care Code Est Pt Level 3 (42782) Diagnoses Hereditary hemochromatosis E83.110 Hemochromatosis type: hereditary
[2024-09-03 12:29] VITALS: BMI 24.8
--- OUTSIDE RECORDS SUMMARY | 2024-09-03 12:48 | XMS_ITS | Clinical Summary ---
Author Organization [facility] Address [address] [place] [address] Care Team Providers Care Speed Winder Name Role Phone Unavailable Primary Care Provider [...] Vaccine (2023-2 5 season) 2023 Influenza Vaccine (Season Ended) 2024 HIB Vaccines Aged Out No longer eligi [...] age to complete this topic Meningococcal B Vaccine Aged Out No l onger eligible based on patient's age to complete [...]
--- OUTSIDE RECORDS SUMMARY | 2024-09-03 12:48 | XMS_ITS | Encounter Summary ---
Author Organization [employer] Address [address] [place] [address] Care Team Providers Care Merchant Seaman Name Role Phone Asha Dodge MD Primary Care Provider [phone] Reason for Visit * Reason Onset Date Comments Call Back Request 06/01/2024 Encounter Details Date Type Department Care Team ([facility] st Contact Info) Description 06/01/2024 Telephone [facility] [address] [place], [place] [phone] Asha Dodge MD [address] [place], [place] [phone] Call Back Request Social History Tobacco Use Types Packs/Day Years [...] encounter Miscellaneous Notes * Telephone Encounter - Turner Santacruz - 06/01/2024 3:25 PM EDT Tc from pt requesting a call back regarding his Disability results. Pt states that he sent the decision results regarding him applying for disability. He is requesting for PCP or Nurse to look over it and give him a call back. Contact pt at [phone] documented in this encounter Plan of Treatment Not on file documented as of this encounter Visit Diagnoses Not on filedocumented in this encounter Additional Health Concerns Assessment Noted Time PHQ-9 Depression Total Score: 3 06/03/19 24 3:02 PM EDT documented as of this encounter Care Teams Merchant Seaman Relationship Specialty Start Date End Date Asha Dodge MD [address] [place] [address] PCP - General Family Medicine 12/29/22 [place] Floor ScraperTape Recorder Repairer 08/08/24 documented as of this encounter
--- OUTSIDE RECORDS SUMMARY | 2024-09-03 12:48 | XMS_ITS | Clinical Summary ---
Author Organization [facility] Address [address] [place] [address] Care Team Providers Care Rigger Name Role Phone Asha Dodge Primary Care Provider [phone] Allergies Active Allergy Reactions Criticality Noted Date [...] he has had difficulties getting to [facility] to get labs, will check [...] He is getting care for hemochromatosis at [facility]. He has had hereditary hemochromatosis HFE [...] - He will continue care at [facility]. If any further questions come up, he is welcome to come back again to see me. Family History Relation Name Status Comments Paternal [...] 92 02/13/2024 3:11 PM EST Temperature 36.8 C (98.2 F) 02/13/2024 2:38 PM EST Respiratory Rate 18 02/13/2024 2:38 PM EST Oxygen Saturation 99% 02/13/2024 2:38 PM EST Inhaled Oxygen Concentration - - Weight 81.6 kg (180 lb) 02/13/2024 2:38 PM EST Height 179.5 cm (5' 10.67 ) 02/13/2024 2:[address] Body Mass Index 25.34 02/13/2024 2:38 PM EST Plan of Treatment Upcoming Encounters Date Type Department Care Team (Late st Contact Info) Description 03/06/2025 1:15 PM EST Office Visit [facility] [address] [place] [address] [address] [facility] [address] [place] [address] Kentrell Bell MD 85 [facility] [address] [place], [place] [id number] Scheduled Procedures Name Priority Associated Diagnoses Date/Ti [...] 1-dose 75+ series) 2060 HIV Screening Completed 07/20/2023, 07/05, 01/20/2023 Hepatitis C Screening Completed 07/20/2023, 023 Influenza Vaccine Completed 11/30/2023, , 03/05/2019, Additional history exists [place] [facility] [place] [id number] Care Teams Rigger Relationship Specialty Start Date End Date Asha Dodge [address] [place] [id number] PCP - General 07/15/23
--- OUTSIDE RECORDS SUMMARY | 2024-09-03 12:48 | XMS_ITS | Clinical Summary ---
Author Organization [facility] Address [address] [facility] [address] [place] [address] Phone Care Team Providers Care Permit Technician Name Role Phone Kaylie Cardona MD Primary Care Provider [phone] Allergies No known active allergies Medications omeprazole [...] Due Date Last Done Comments Hepatitis B Vaccine (1 of 3 - 19+ 3-dose series) 2004 Pneumococcal Vaccine: Peds ( 0 to 5 Years) and At-Risk Patients (6 to 49 Years) (1 of 2 - PCV) 2004 Influenza Vaccine (Season Ended) 2024 01/16/2021, 03/05/2019, 12/24/2016 Insurance [place] [address] [place] [id number] Medicaid [place] Care Teams Permit Technician Relationship Specialty Start Date End Date Kaylie Cardona MD PCP - General Family Medicine 05/04/22
== END 2024-09-03 13:00 | disposition home or self-care (01) ==
LOC: HO.HGI 12:12
PROVIDERS: PCP General Practice; Visit Provider Internal Medicine Gastroenterology
DX: E83.110 Hereditary hemochromatosis (principal)
CPT/HCPCS: 99213

== ENCOUNTER → 2024-09-03 12:12 | Outpatient (BNVA) | payer MEDICAID, SELFPAY | PROVIDERS: PCP General Practice; Visit Provider Internal Medicine Gastroenterology | DX: E83.110 Hereditary hemochromatosis (principal) | CPT/HCPCS: 99212 ==

== ENCOUNTER 2024-09-19 11:54 | Outpatient (REF) | payer MEDICAID, SELFPAY ==
--- OUTSIDE RECORDS SUMMARY | 2024-09-19 13:01 | XMS_ITS | Clinical Summary ---
Author Organization [facility] Address [address] [place] [address] Care Team Providers Care Deckhand Crab Boat Name Role Phone Asha Dodge Primary Care [...] Reports he has had difficulties getting to [facility] to get labs, will check his [...] He is getting care for hemochromatosis at [facility]. 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 - He will continue care at [facility]. If any further questions come up, [...] Description 03/06/2025 1:15 PM EST Office Visit [facility] [address] [place] [facility] 85 [facility] [address] [place] [address] Kentrell Bell MD 85 [facility] [address] [place] [address] Scheduled Procedures Name Priority Associated Diagnoses Date/Ti [...] Drivers of Health Alessandra ual Screening 03/07/2024 Influenza Vaccine (#1) 2024 , 01/16/2021, 03/05/2019, Additional history exists DTaP,Tdap,and Td Vaccines (3 - Td or Tdap) 12/19/2032 12/19/2022, 06/14/2012 RSV Vaccine (60+ years old a nd patients) (1 - 1-dose 75+ series) 2060 HIV Screening Completed 07/20/2023, 07/05, 01/20/2023 Hepatitis C Screening Completed 07/20/2023, 023 Insurance [facility] [id number] [id number] Care Teams Deckhand Crab Boat Relationship Specialty Start Date End Date Asha Dodge [address] [place] [address] PCP - General 07/15/23
--- OUTSIDE RECORDS SUMMARY | 2024-09-19 13:01 | XMS_ITS | Clinical Summary ---
Author Organization [facility] ity Address [address] [place] [address] Care Team Providers Care Museum Exhibit Designer Name Role Phone Unavailable Primary Care Provider [...] 2004 COVID-19 Vaccine (2023-2 5 season) 2023 Depression Screening 03/07/2024 Influenza Vaccine (#1) 2024 HIB Vaccines Aged Out No longer [...] and At-Risk Patients (6 to 49 Years) Aged Out No longer eligible b ased on patient's age to complete this topic RSV Immunization Patients Un kira 20 months Aged Out No longer eligible b ased on patient's age to complete this topic Varicella Vaccines Aged Out No longer eligible based on patient's age to complete this topic
--- OUTSIDE RECORDS SUMMARY | 2024-09-19 13:01 | XMS_ITS | Clinical Summary ---
Author Organization [facility] Address [address] [facility] [address] [place] [address] Phone Care Team Providers Care Science Instructor Name Role Phone Kaylie Cardona MD Primary Care Provider [phone] Allergies No known active allergies Medications omeprazole [...] of 2 - PCV) 2004 Influenza Vaccine (#1) 2024 , 03/05/2019, 12/24/2016 Insurance Medicaid [place] [address] [place] [id number] Medicaid [place] Care Teams Science Instructor Relationship Specialty Start Date End Date Kaylie Cardona MD PCP - General Family Medicine 05/04/22
--- OUTSIDE RECORDS SUMMARY | 2024-09-19 13:01 | XMS_ITS | Encounter Summary ---
Author Organization [facility] Address [address] [facility] [address] [place] [address] Care Team Providers Care Biological Photographer Name Role Phone Asha Dodge MD Primary Care Provider [phone] Reason for Visit * Reason Onset Date Comments Call Back Request 06/01/2024 Encounter Details Date Type Department Care Team ([facility] st Contact Info) Description 06/01/2024 Telephone [facility] [address] [place], [place] [phone] Asha Dodge MD [address] [place], [place] [phone] Call Back Request Social History Tobacco Use [...] him a call back. Contact pt at [phone] documented in this encounter Plan of Treatment Not on file documented as of this encounter Visit Diagnoses Not on filedocumented in this encounter Additional Health Concerns Assessment Noted Time PHQ-9 Depression Total Score: 3 06/03/19 24 3:02 PM EDT documented as of this encounter Care Teams Biological Photographer Relationship Specialty Start Date End Date Asha Dodge MD [address] [place] [address] PCP - General Family Medicine 12/29/22 Cyn Oviedo Mechanical Engineering ManagerBike Assembler 08/08/24 documented as of this encounter
[2024-09-19 14:25] LABS: Alanine Aminotransferase 32 U/L (0-40); Albumin Level 4.5 g/dL (3.5-5.0); Alkaline Phosphatase 75 U/L (39-117); Anion Gap 10 (12-20); Aspartate Amino Transferase 22 U/L (5-37); Blood Urea Nitrogen 16 mg/dL (9-16); Calcium 9.5 mg/dL (8.4-10.2); Carbon Dioxide 31 mmol/L (22-29); Chloride 104 mmol/L (96-108); Estimated Glomerular Filt Rate > 60; Potassium 4.2 mmol/L (3.3-5.1); Sodium 141 mmol/L (135-145); Total Protein 7.0 g/dL (6.5-8.0)
== END 2024-09-19 11:55 | disposition home or self-care (01) ==
LOC: HO.HHCL 11:54
PROVIDERS: PCP General Practice; Visit Provider Student in an Organized Health Care Education/Training Program
DX: E83.110 Hereditary hemochromatosis (principal)
CPT/HCPCS: 36415; 80053

== ENCOUNTER 2024-09-28 14:44 | Outpatient (AMB) | payer MEDICAID, SELFPAY ==
--- OUTSIDE RECORDS SUMMARY | 2024-09-28 14:46 | XMS_ITS | Encounter Summary ---
Author Organization [facility] Address [address] [facility] [address] [place] [address] Care Team Providers Care Manager Social Responsibility Name Role Phone Asha Dodge MD Primary Care Provider [phone] Reason for Visit * Reason Onset Date Comments Call Back Request 06/01/2024 Encounter Details Date Type Department Care Team ([facility] st Contact Info) Description 06/01/2024 Telephone [facility] [address] [place], [place] [phone] Asha Dodge MD [address] [place], [place] [phone] Call Back Request Social History Tobacco Use [...] him a call back. Contact pt at [phone] documented in this encounter Plan of Treatment Not on file documented as of this encounter Visit Diagnoses Not on filedocumented in this encounter Additional Health Concerns Assessment Noted Time PHQ-9 Depression Total Score: 3 06/03/19 24 3:02 PM EDT documented as of this encounter Care Teams Manager Social Responsibility Relationship Specialty Start Date End Date Asha Dodge MD [address] [place] [address] PCP - General Family Medicine 12/29/22 Cyn Oviedo Software Development LeaderAquatics Manager 08/08/24 documented as of this encounter
--- OUTSIDE RECORDS SUMMARY | 2024-09-28 14:46 | XMS_ITS | Clinical Summary ---
Author Organization [facility] Address [address] [facility] [address] [place] [address] Phone Care Team Providers Care Copyright Manager Name Role Phone Kaylie Cardona MD Primary Care Provider [phone] Allergies No known active allergies Medications omeprazole [...] (#1) 2024 , 03/05/2019, 12/24/2016 Insurance Medicaid [place] [address] [place] [id number] Medicaid [place] Care Teams Copyright Manager Relationship Specialty Start Date End Date Kaylie Cardona MD PCP - General Family Medicine 05/04/22
--- OUTSIDE RECORDS SUMMARY | 2024-09-28 14:47 | XMS_ITS | Clinical Summary ---
Author Organization [facility] ity Address [address] [place] [address] Care Team Providers Care Adaptive Physical Educator Name Role Phone Unavailable Primary Care Provider [...] of 3 - 19+ 3-dose series) 2004 HPV Vaccines (2 - 3-dose SCDM series) 12/15/2021 11/17/2021 COVID-19 Vaccine ( - season) 2023 Depression Screening 03/07/2024 Influenza Vaccine (#1) 2024 , 01/16/2021, 03/05/2019, Additional history exists DTaP,Tdap,and Td Vaccines (3 - Td or Tdap) 12/19/2032 12/19/2022, 06/14/2012 Hepatitis A Vaccines Aged Out 08/13/2024 No long er eligible based on patient's age to complete this topic MMR Vaccines Aged Out 08/13/2024 No longer eligi ble based on patient's age to complete this topic HIB Vaccines Aged Out No longer eligi [...] age to complete this topic Pneumococcal Vaccine: Pediatrics (0 to 5 Years) and At-Risk Patients (6 to 49 Years) Aged Out No longer eligible based on patient's age to complete this topic RSV Immunization Patients Under 20 months Aged Out No longer eligible based on patient's age to complete this topic Varicella Vaccines Aged Out No longer eligible based on patient's age to complete this topic
--- OUTSIDE RECORDS SUMMARY | 2024-09-28 14:47 | XMS_ITS | Clinical Summary ---
Author Organization [facility] Address [address] [place] [address] Care Team Providers Care Zipper Slide Attacher Name Role Phone Asha Dodge Primary Care Provider [phone] Allergies Active Allergy Reactions Criticality Noted Date [...] Reports he has had difficulties getting to [facility] to get labs, will check his [...] is getting care for hemochromatosis at [facility]. 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 - He will continue care at [facility]. If any further questions come up, [...] Description 03/06/2025 1:15 PM EST Office Visit [facility] [address] [place] [facility] 85 [facility] [address] [place] [address] Kentrell Bell MD 85 [facility] [address] [place] [address] Scheduled Procedures Name Priority Associated [...] Hepatitis C Screening Completed 07/20/2023, 023 Insurance [facility] [place] [id number] Care Teams Zipper Slide Attacher Relationship Specialty Start Date End Date Asha Dodge [address] [place] [address] PCP - General 07/15/23
--- OUTSIDE RECORDS SUMMARY | 2024-09-28 14:47 | XMS_ITS | Clinical Summary ---
Author Organization [facility] Address [address] [address] Phone Care Team Providers Care Pediatric Physician Name Role Phone Asha Dodge MD Primary Care Provider + Peter Lerner MD, MS Unavailable [phone] Allergies Active Allergy Reactions Criticality Noted Date Comments Metronidazole Anxiety,Arrhythmia,D iar serge,Feeling Irritable,Hepatotoxicit y,Itching,Lightheadedne ss,Other (See Comments),Tremor High 03/05/2022 Other Reaction(s): Neuroleptic Malignant Syndrome Neurological issues Neurological symptoms Medications polyethylene glycol (GAVILAX) 17 gram/dose powder Take 17 g by mouth. 07/06/2023 Active melatonin 1 mg Tab Take 2.5 mg by mouth nightly at bedtime. 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 Overview (04/12/2024): CYP2B6 *6 / * 6 POOR METABOLIZER RELEVANT MEDS: EFAVIRENZ, SERTRALINE GO TO [facility] DDRx for genotype allele specific prescribing guidelines: https://ddrx.pharmgkb.org/results?genotypeSelection=%7B%49WKM2T2%22%3A%5B%22*6%2 2%2C% 22*6%22%5D%7D GO TO IC SITE FOR GENERAL 2B6 GENE PRESCRIBING GUIDELINES : https://www.pharmgkb.org/gene/PA123/prescribingInfo Anxiety and depression 02/22/2024 PTSD (post-traumatic stress disorder) 02/22/2024 OCD (obsessive compulsive disorder) 02/22/2024 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 Hereditary hemochromatosis 02/22/2024 Assessment & Plan (04/13/2024 11:55 AM EST): Adverse effect of other drug s, medicaments and biological substances, sequela 02/22/2024 Other hyperlipidemia 02/22/2024 Overview (02/22/2024): No results found for: LDL1 , LDL2 , LDL3 , LDL4 , LDLCAL , LDL , LDLDIR , DIRLDL This SmartLink has been updated to reference the ASCVD 2013 equation and not the 2018 equations. The ASCVD Risk score (Pennington DK, et al., 2019) failed to calculate for the following reasons: The 2019 ASCVD risk score is only valid for ages 40 to 79 Please consider using the newly developed race-neutral PREVENT score to determine CVD risk: https://professional.heart.org/en/dpruhkvcax-ieh-kwemxcebcf/prevent-calculator Family history of early CAD 02/22/2024 Encounters Date Type Department Care Team Description 08/07/2024 Orders Only [facility] [address] [place] [address] Morena Leary MD 07/13/2024 Orders Only [facility] Health Information Management [address] [place] [address] Morena Leary MD from Last 3 Months Social History Tobacco Use Types Packs/Day Years Used Date Smoking Tobacco: Never Assessed Education Answer Date Recorded Are you interested in more education? Not on gaudencio e 06/10/2023 Are you concerned about learning? Not on file 06/10/2023 No 06/10/2023 No 06/10/2023 Digital Access Answer Date Recorded No 06/10/2023 No 06/10/2023 Reliable internet access at home? Not on file 06/10/2023 Device with a working camera? Not on file Comments Unknown Sex and Gender Information Value Date Recorded Sex Assigned at Choose not to disclose 2:26 PM EDT Legal Sex Male 10:39 AM EDT Gender Identity Male 06/29/2023 2:26 PM EDT Sexual Orientation Choose not to disclose 2023 2:26 PM EDT Last Filed Vital Signs Vital Sign Reading Time Taken Comments Blood Pressure 132/97 06/18/2024 2:22 PM EDT Pulse 76 06/18/2024 2:22 PM EDT Temperature - - Respiratory Rate - - Oxygen Saturation 98% 06/18/2024 2:22 PM EDT Inhaled Oxygen Concentration - - Weight 86.2 kg (190 lb) 06/18/2024 2:22 PM EDT Height 180.3 cm (5' 11 ) 06/18/2024 2:22 PM EDT Body Mass Index 26.5 06/18/2024 2:22 PM EDT Plan of Treatment Upcoming Encounters Date Type Department Care Team (Late st Contact Info) Description 12/20/2024 3:00 PM EDT Office Visit [facility] Specialties [address] [facility] [address] [place] [address] Angelo Bryan MD, MPH [address] [place] [address] [email or web address] Health Maintenance Due Date Last Done Comments DEPRESSION SCREENING 1997 SMOKING Hx and SMOKELESS TOBACCO SCREENING 1998 HEPATITIS C SCREENING 10/18/2003 HIV ONE-TIME SCREENING (18-65 YEARS) 10/18/2003 SCREENING FOR DIABETES 2020 COVID-19 VACCINE ( season) 2023 11/13/2021, 03/16/2021, 07/15/2020, Additional history exists LIPID PANEL 03/30/2028 03/30/2023 Adult Td,Tdap Booster 12/19/2032 12/19/2022, 013 HEPATITIS A VACCINES Aged Out No long er eligible based on patient's age to complete this topic HIB VACCINES Aged Out No longer eligi ble based on patient's age to complete this topic MENINGOCOCCAL VACCINES (ACWY) Aged Out No longer eligible based on patient's age to complete this topic MENINGOCOCCAL VACCINES (B) Aged Out N o longer eligible based on patient's age to complete this topic PNEUMOCOCCAL VACCINES (0-49 years) Aged Out No longer eligible based on patient's age to complete this topic Medical Devices Not on file Procedures Procedure Name Priority Date/Time Associated Diagnosis Comments OUTSIDE LAB Routine 08/07/2024 2:01 PM EDT OUTSIDE LAB Routine 07/13/2024 1:37 PM EDT OUTSIDE LAB 07/13/2024 from Last 3 Months Results * Outside Lab (08/07/2024 2:01 PM EDT) Only the most recent of3 resultswithin the time period is included. Historical Provider LAB BLOOD ORDERABLES Rozina l Result from Last [address] [place] [address] [place] [id number] [facility] [place] [place] [address] [place] [id number] [employer] [facility] C3 ACO Care Teams Pediatric Physician Relationship Specialty Start Date End Date Asha Dodge MD PCP - General Family Medicine 06/09/23 Peter Lerner MD, MS [address] [place] [address], [address] [place] [phone] [email or web address] Primary Care Physician Internal Medicine 02/22/24 Additional Source Comments The information contained in this document represents components of the legal health record. It is not the complete legal health record.[facility]
--- NOTE | 2024-09-28 14:56 | A.OFFVIS_ITS ---
Vital Signs 09/28/24 14:57 Height 5 ft 11 in Weight 194 lb 0.108 oz BMI 27.1 BP 126/80 Blood Pressure Location Lt brachial Position Sitting Pulse 81 Intake Visit Reasons: r/s 06/05/24 followup s/p testing Intake Note: follow-up bp has been creeping up and also has sternal pain resolved by sitting up Allergies Cfoslve-GVP-JaN Reductase Inhibitor Allergy (Intermediate, Verified 09/03/24 12:25) Palpitations metronidazole (From Flagyl) Adverse Reaction (Intermediate, Verified 09/03/24 12:25) Nausea, sweats, Diarrhea HPI Comments Details: This is a 38-year-old male patient coming in for a follow-up visit. Patient was previously seen in the office for different reasons of chest discomfort, palpitations, dizziness. Patient has had ER visits also for these reasons. Over the years, patient has undergone workups which have all been unremarkable. Patient recently has been asking about blood pressures that may have been borderline high with some sternal pain. Patient was subsequently ordered a stress echo which was completed at [facility]. Today, patient reports feeling well overall without any exertional chest pain, shortness of breath, palpita tions, dizziness, orthopnea, PND, leg edema, presyncope, or syncope. Patient notes that he has continued to have the sternal pain mostly with positional changes such as hunting over or bending his neck. Patient states that it gets better with sitting up straight. Patient also states that his blood pressures has been slowly climbing systolically in the 120s to 130s and is wondering if this is related to his hemochromatosis. Patient states he follows Hematology for this matter. [facility] Medical History DVT (deep venous thrombosis) 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 Thrombosed external hemorrhoid Autosomal dominant hereditary hemochromatosis Mild intermittent allergic 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 Mood disorder Dizziness Paresthesia Thyroid nodule Anxiety HTN (hypertension) Surgical History History of esophagogastroduodenoscopy (EGD) Hx of colonoscopy S/P fine needle aspiration Hx of wisdom tooth extraction Family History Father CLL (chronic lymphocytic leukemia) Diabetes Paternal Grandfather Diabetes Maternal Grandmother H/O heart bypass surgery Mother Drug abuse Social History Household Members: None Housing: Apartment Are you a primary md do resident urgent care to a significant other at home: No Do you presently have visiting nurse or other home services: No Alcohol intake: never Patient Tobacco Use Status: Never used Tobacco service: No Current occupational status: unemployed Review of Systems Const Denies chills, Denies fatigue, Denies fever(s), Denies frequent falls, Denies weakness, Reports weight gain and Denies weight loss ENT Reports dizziness Card Reports chest pain, Denies leg edema, Reports lightheadedness, Reports palpitations, Denies dyspnea, Denies dyspnea on exertion, Denies orthopnea and Denies other (loss of consciousness) Resp Denies cough, Denies dyspnea and Denies dyspnea on exertion GI Denies hematochezia and Denies change in stool character Musc Denies abnormal gait, Denies muscle weakness, Denies numbness, Denies radiating pain into limb and Denies tingling Neuro Denies abnormal gait, Reports dizziness, Denies frequent falls, Denies numbness, Denies tingling and Denies weakness Endo Denies fatigue and Reports palpitations Physical Exam Vital Signs: Last Vital Signs Pulse 81 09/28/24 14:57 BP 126/80 09/28/24 14:57 BMI result Body Mass Index 27.1 Const General: cooperative, healthy appearing, comfortable and no acute distress Orientation/consciousness: patient oriented x3 HEENT Head: Yes normal to inspection Neck Neck: Yes normal visual inspection, Yes trachea midline and Yes supple Chest Chest palpation & inspection: normal inspection of the chest Resp Effort & Inspection: normal respiratory effort Auscultation: clear to auscultation bilaterally, no crackles, no rales, no rhonchi and no wheezes Cardio Jugular venous distension: no JVD Palpation: normal PMI Rate: regular rate Rhythm: regular rhythm Heart sounds: S1 normal heart sound present, S2 normal heart sound present, no click, no gallops, no murmurs and no rubs Peripheral pulses: Peripheral pulses 2+ throughout GI Inspection: Yes normal to inspection Palpation (GI): Soft to palpation Auscultation: normal bowel sounds Skin General skin exam: no rashes or lesions noted Neuro General: patient oriented x3 Extrem General: Yes normal to inspection, No no pedal edema and No calf tenderness Psych Appearance: grossly normal Mental Status: mental status grossly normal Speech and movement: Normal speech and movement present Assessment & Plan Assessment & Plan (1) Chest discomfort: Code(s): R07.89 - Other chest pain Category: Medical (2) Blood pressure alteration: Code(s): R68.89 - Other general symptoms and signs Category: Medical Plan 05/11/2024-patient underwent stress echo at [facility]. The report was faxed over and reviewed with the patient. Is showed normal finding with no wall motion abnormalities. Given above finding and reports of his positional sternal pain, most likely musculoskeletal. Patient understands this. Patient states his blood pressure at home has been systolic a high between 120s to 140s. Blood pressure today is within normal limits. No medication changes at this time. Patient thinks this may be related to his hemochromatosis however recent labs have shown normal H&H. Patient states he follows with Hematology for his hemochromatosis. Advised to follow up with them. Patient states that he needs to find a treasury analyst who was experienced with patient's with hemochromatosis. Advised googling this and checking with his pbx technician if they have any suggestions. Clinically stable and without any anginal symptoms. No further testing required at this time. Reassurance provided to the patient. Advised heart healthy diet, regular exercise, and stress medication strategies. Follow up with the patient on an as-needed patient. In the interim, patient will call the office with any concerns or change in symptoms. This note was generated using voice recognition software. While every effort has been made to ensure accuracy and proper groundsman, there may be occasional errors that could affect the content or meaning of the described symptoms. Coding Level of Care Code Est Pt Level 3 (58165) Diagnoses Chest discomfort R07.89 Blood pressure alteration R68.89 Time Spent (min) 29 Comment Time spent in reviewing the chart, test results, assessment, counseling and documentation.
[2024-09-28 14:57] VITALS: BP 126/80; PULSE 81; BMI 27.1
== END 2024-09-28 15:35 | disposition home or self-care (01) ==
LOC: HO.HCS 14:45
PROVIDERS: PCP General Practice
DX: R07.89 Other chest pain (principal); R68.89 Other general symptoms and signs
CPT/HCPCS: 99213

== ENCOUNTER → 2024-09-28 14:44 | Outpatient (BNVA) | payer MEDICAID, SELFPAY | PROVIDERS: PCP General Practice | DX: R07.89 Other chest pain (principal); R68.89 Other general symptoms and signs | CPT/HCPCS: 99212 ==

== ENCOUNTER 2024-10-06 16:46 | Emergency (ER) | payer MEDICAID, SELFPAY ==
--- NOTE | 2024-10-06 | ECG_ITS ---
Test Reason : PALPITATIONS Blood Pressure : */* mmHG Vent. Rate : 84 BPM Atrial Rate : 84 BPM P-R Int : 144 ms QRS Dur : 72 ms QT Int : 368 ms P-R-T Axes : 51 55 47 degrees QTcB Int : 434 ms Normal sinus rhythm Normal ECG When compared with ECG of 27-Feb-2024 23:35, No significant change was found Referred By: Generic ED Physician Electronically Signed By: TERRY FRANK MD
[2024-10-06 16:52] VITALS: BP 160/90; PULSE 82; O2SAT 98
[2024-10-06 16:53] VITALS: BP 143/78; PULSE 82; RESP 14; TEMP 36.6; O2SAT 100; BMI 27.9
[2024-10-06 17:36] LABS: MANUAL DIFF FLAG NO
[2024-10-06 17:42] LABS: Hematocrit 47.0 % (42.0-52.0); Hemoglobin 17.3 g/dl (14.0-18.0); Imm Gran Abs Auto 0.01 X10*3/uL (0.00-0.03); Imm Gran Pct Auto 0.2 % (0.0-0.4); Lymphocytes Absolute Auto 1.4 X10*3/uL (1.2-4.9); Mean Corpuscular HGB Conc 36.8 g/dl (31.0-36.0); Mean Corpuscular Hemoglobin 32.8 pg (27.0-33.0); Mean Corpuscular Volume 89.2 fL (80.0-98.0); NRBC Abs Auto 0.000 X10*3/uL (0.0-0.012); NRBC Pct Auto 0.0 /100WBC (0.0-0.2); Platelet Count 218 X10*3/uL (160-400); Red Blood Count 5.27 X10*6/uL (4.60-5.80); White Blood Count 5.3 X10*3/uL (4.8-10.8)
--- NOTE | 2024-10-06 17:42 | ED.ABDPAIN ---
HPI - Abdominal Pain General Chief Complaint: Abdominal Pain Stated Complaint: abd pain, nausea Time Seen by Provider: 10/06/24 17:36 Source: patient and EMS Mode of arrival: EMS Limitations: no limitations History of Present Illness ED Provider: DR. Yuan HPI narrative: 38-year-old male with PMH significant for hemochromatosis, polycythemia vera, Alport syndrome, GERD came in for evaluation of abdominal pain after ate lunch, started with palpitation, patient became diaphoretic and clammy, nausea without vomiting, then patient passed gas and fell better, patient had 2 normal bowel movement in the morning, no CP, no SOB, patient now feels better after he passed gas with no abdominal pain, no symptoms. No dysuria, no frequency urination, no hematuria. Related Data Home Medications ?Medication ?Instructions ?Recorded ?Confirmed triamcinolone acetonide 0.025 % 1 appl topical BID PRN Rash 06/12/23 07/02/24 topical cream lorazepam 0.5 mg tablet 0.5 mg PO BEDTIME PRN Rash 12/12/23 07/02/24 Previous Rx's ?Medication ?Instructions ?Recorded polyethylene glycol 3350 17 17 g PO DAILY constipation #119 06/13/23 gram/dose oral powder (Miralax) grams gabapentin 100 mg capsule 100 mg PO BEDTIME PRN sleep #30 02/28/24 caps sodium,potassium,mag sulfates 17.5 See Rx Instructions PO .COMPLEX 04/26/24 gram-3.13 gram-1.6 gram oral soln #354 mL (Suprep Bowel Prep Kit) cholecalciferol (vitamin D3) 1,250 1,250 mcg PO QWEEK #8 caps 09/03/24 mcg (50,000 unit) capsule cholecalciferol (vitamin D3) 50 10,000 unit PO GARCIA@2100 #90 caps 09/03/24 mcg (2,000 unit) capsule esomeprazole magnesium 20 mg 20 mg PO DAILY #30 caps 09/03/24 capsule,delayed release rifaximin 550 mg tablet 550 mg PO TID 2 weeks #42 tabs 09/03/24 levomefolate calcium 15 mg tablet 15 mg PO DAILY #30 tabs 09/06/24 Allergies Allergy/AdvReac Type Severity Reaction Status Date / Time Vvmfsyu-OGY-NxM Reductase Allergy Intermediate Palpitation Verified 08/02/25 16:59 Inhibitor s metronidazole (From Flagyl) AdvReac Intermediate Nausea, Verified 10/06/24 16:59 sweats, Diarrhea Review of Systems Review of Systems All other systems are reviewed and are negative Constitutional: Reports as per HPI and Reports no additional constitutional complaints Eyes: Reports as per HPI and Reports no additional eye complaints Reports system reviewed and no additional complaints, except as documented Cardiovascular: Reports as per HPI and Reports no additional cardiovascular complaints Respiratory: Reports as per HPI and Reports no additional respiratory complaints Gastrointestinal: Reports as per HPI and Reports no additional gastrointestinal complaints Genitourinary: Reports no additional female genitourinary complaints Musculoskeletal: Reports no additional musculoskeletal complaints Skin/Breast: Reports system reviewed and no additional complaints, except as docu Psychiatric: Reports no additional psychiatric complaints Endocrine: Reports no additional endocrine complaints Hematologic/Lymphatic: Reports no additional hematologic/lymphatic complaints Allergic/Immunologic: Reports no additional allergic/immunologic complaints Reports system reviewed and no additional complaints, except as documented and Reports Abnormal speech present [facility] Past Medical History Medical History DVT (deep venous thrombosis) 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 Thrombosed external hemorrhoid Autosomal dominant hereditary hemochromatosis Mild intermittent allergic 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 Mood disorder Dizziness Paresthesia Thyroid nodule Anxiety HTN (hypertension) Surgical History History of esophagogastroduodenoscopy (EGD) Hx of colonoscopy S/P fine needle aspiration Hx of wisdom tooth extraction Family History Family History Father CLL (chronic lymphocytic leukemia) Diabetes Paternal Grandfather Diabetes Maternal Grandmother H/O heart bypass surgery Mother Drug abuse Social History Social History Household Members: None Housing: Apartment Are you a primary pharmacy care coordinator to a significant other at home: No Do you presently have visiting nurse or other home services: No Alcohol intake: never Patient Tobacco Use Status: Never used Tobacco Smoked in Last 30 Days: No Use of substances other than those prescribed or required for medical reasons: No Advance Directives: No Advance Directives Information Provided: No service: No Current occupational status: unemployed Physical Exam ED Vital Signs: Vital Signs - 24 hr 10/06/24 16:53 10/06/24 19:37 Temperature 97.9 F 98.9 F Pulse Rate 82 66 Respiratory Rate 14 16 Blood Pressure 143/78 H 115/72 Pulse Oximetry 100 96 Oxygen Delivery Method Room Air Room Air BMI result Body Mass Index 27.9 Vital signs have been reviewed and appear to be correct. Blood pressure elevated. Heart rate normal. Respiratory rate normal. Temperature normal. Oxygen saturation normal. Appearance: Alert. Oriented X3. No acute distress. Head: Normal external exam. Normocephalic. Atraumatic. No Banegas signs noted. No raccoon eyes noted Eyes: PERRLA. EOMI. Conjunctiva and sclera normal. Eyelids normal. ENT: TM's Normal. Pharynx normal. Uvula midline. Moist mucous membranes. No trismus noted. No drooling noted. No muffled voice noted. Neck: Normal inspection. Neck supple. FROM. No adenopathy. Thyroid Normal. No meningeal signs. No neck mass noted. CVS: Normal heart rate and rhythm. Heart sound normal. No murmurs noted. Pulses normal throughout. Respiratory: No respiratory distress. Painless inspiration. Breath sounds normal. No wheezes/rales/rhonchi noted. Chest nontender. No accessory muscle usage noted or decreased air movement noted. Abdomen: Soft and nontender. Bowel sounds normal in all 4 quadrants. No distention noted. No organomegaly noted. No visible injury noted. Back: No CVA tenderness. Full range of motion noted. Skin: Skin warm and dry. Normal skin color. Normal skin turgor. No rashes/lesions/lacerations noted. Extremities: No lower extremity edema. Extremities exhibit normal range of motion. Extremities nontender. Neuro: Oriented X 3. Cranial nerve exam: II-XII are grossly intact No motor deficit. No sensory deficit. Reflexes normal. Course Reevaluation(s) Reevaluation #1: patient feels better, tolerate p.o. intake, no abdominal pain, repeat abdominal exam showed no abdominal tenderness labs are unremarkable. Patient had history of similar episodes in the past usually resolve after passing gas. Extensive GI history follow-up with Dr. Spears. Palpitation and chest pain is likely anxiety related negative cardiac workup. Time: 19:49 Medical Decision Making Differential Diagnosis Differential Diagnoses: The differential diagnosis associated with the presentation includes ( Gastroenteritis, gastritis, anxiety, ACS, acute appendicitis, acute colitis, electrolyte derangement, severe anemia.) Admission/Observation Consideration of admission/observation: Escalation of care including admission/observation considered Lab Data MDM Lab Attestation statement: I reviewed the patient's lab results. 10/06/24 17:32 10/06/24 17:32 Labs: Lab Results 10/06/24 10/06/24 Range/Units 17:32 18:39 WBC 5.3 (4.8-10.8) X10*3/uL RBC 5.27 (4.60-5.80) X10*6/uL Hgb 17.3 (14.0-18.0) g/dl Hct 47.0 (42.0-52.0) % MCV 89.2 (80.0-98.0) fL MCH 32.8 (27.0-33.0) pg MCHC 36.8 H (31.0-36.0) g/dl RDW 11.6 (11.0-16.0) % Plt Count 218 (160-400) X10*3/uL MPV 9.7 (9.4-12.4) fL Immature Gran % (Auto) 0.2 (0.0-0.4) % Neut % (Auto) 62.8 (45-73) % Lymph % (Auto) 26.7 (20-40) % Cache % (Auto) 7.5 (2-11) % Eos % (Auto) 1.9 (0-4) % Baso % (Auto) 0.9 (0-2) % Lymph # (Auto) 1.4 (1.2-4.9) X10*3/uL Cache # (Auto) 0.4 (0.1-1.2) X10*3/uL Eos # (Auto) 0.1 (0.0-0.4) X10*3/uL Baso # (Auto) 0.1 (0.0-0.2) X10*3/uL Abs Immat Gran (auto) 0.01 (0.00-0.03) X10*3/uL Absolute Neuts (auto) 3.3 (2.0-8.3) x10*3/uL Absolute Nucleated RBC 0.000 (0.0-0.012) X10*3/uL Nucleated RBC % (auto) 0.0 (0.0-0.2) /100WBC Sodium 141 (135-145) mmol/L Potassium 4.4 (3.3-5.1) mmol/L Chloride 106 (96-108) mmol/L Carbon Dioxide 29 (22-29) mmol/L Anion Gap 10 L (12-20) BUN 15 (9-16) mg/dL Creatinine 0.97 (0.5-1.4) mg/dL Estim Creat Clear Calc 119.0 Estimated GFR > 60 Fasting Glucose 104 H (60-99) mg/dL Calcium 9.3 (8.4-10.2) mg/dL Total Bilirubin 0.4 (0.0-1.0) mg/dL AST 21 (5-37) U/L ALT 30 (0-40) U/L Alkaline Phosphatase 89 (39-117) U/L Troponin I High Sens < 2.7 (<3.5-35.0) ng/L Total Protein 7.1 (6.5-8.0) g/dL Albumin 4.4 (3.5-5.0) g/dL Urine Color Yellow Urine Appearance Clear Urine pH 8.5 (5.0-9.0) Ur Specific [place] 1.010 (1.005-1.025) Urine Protein Negative (Neg-Trace) mg/dL Urine Glucose (UA) Negative (Negative) mg/dL Urine Ketones Negative (Negative) mg/dL Urine Blood Negative (Negative) Urine Nitrite Negative (Negative) Ur Leukocyte Esterase Negative (Negative) Radiology Impression Discussion of test interpretation with radiology: I have reviewed the radiologist's reading. Discharge Plan Discharge Clinical Impression: Abdominal pain Patient Disposition: Home, Self-Care Instructions: Abdominal Pain (ED) Prescriptions: No Action sodium,potassium,mag sulfates [Suprep Bowel Prep Kit] 17.5-3.13-1.6 gram recon soln See Rx Instructions PO .COMPLEX Qty: 354 0RF Rx Instructions: DILUTE; drink 1/2 at 6-8 pm and half at 11 PM- 1AM levomefolate calcium 15 mg tablet 15 mg PO DAILY Qty: 30 2RF triamcinolone acetonide 0.025 % cream 1 appl TOPICAL BID PRN (Reason: Rash) polyethylene glycol 3350 [Miralax] 17 gram/dose powder 17 g PO DAILY Qty: 119 0RF gabapentin 100 mg capsule 100 mg PO BEDTIME PRN (Reason: sleep) Qty: 30 0RF lorazepam 0.5 mg tablet 0.5 mg PO BEDTIME PRN (Reason: Rash) esomeprazole magnesium 20 mg capsule,delayed release(DR/EC) 20 mg PO DAILY Qty: 30 3RF rifaximin 550 mg tablet 550 mg PO TID 14 Days Qty: 42 0RF cholecalciferol (vitamin D3) 1,250 mcg (50,000 unit) capsule 1,250 mcg PO QWEEK Qty: 8 0RF cholecalciferol (vitamin D3) 50 mcg (2,000 unit) capsule 10,000 unit PO GARCIA@2100 Qty: 90 1RF Referrals: Marco Spears MD [Physician, Gastroenterology] Print Language: Indonesian
[2024-10-06 17:54] LABS: Alanine Aminotransferase 30 U/L (0-40); Albumin Level 4.4 g/dL (3.5-5.0); Alkaline Phosphatase 89 U/L (39-117); Anion Gap 10 (12-20); Aspartate Amino Transferase 21 U/L (5-37); Blood Urea Nitrogen 15 mg/dL (9-16); Calcium 9.3 mg/dL (8.4-10.2); Carbon Dioxide 29 mmol/L (22-29); Chloride 106 mmol/L (96-108); Creatinine Clr Calc Pharmacy 119.0; Estimated Glomerular Filt Rate > 60; Potassium 4.4 mmol/L (3.3-5.1); Sodium 141 mmol/L (135-145); Total Protein 7.1 g/dL (6.5-8.0)
[2024-10-06 18:03] LABS: Troponin-I High Sensitivity < 2.7 ng/L (<3.5-35.0)
[2024-10-06 19:04] LABS: Appearance Urine Clear; Glucose Urine UA Negative (Negative); PH 8.5 (5.0-9.0); Specific Gravity - Urine 1.010 (1.005-1.025)
--- NOTE | 2024-10-06 19:36 | PC.NURSE ---
this RN resumed care of pt at 1900, he has been ambulating around the unit at this time. Reporting no CP at this time, has been passing flatus with ease. Pt awaiting rest of the work up at this time, call avery within reach.
[2024-10-06 19:37] VITALS: BP 115/72; PULSE 66; RESP 16; TEMP 37.2; O2SAT 96
[2024-10-06 20:06] VITALS: BP 115/72; PULSE 66; RESP 16; TEMP 37.2; O2SAT 96
== END 2024-10-06 20:00 | disposition home or self-care (01) ==
PROVIDERS: Emergency Provider Emergency Medicine
DX: R10.9 Unspecified abdominal pain (principal); R11.0 Nausea; E83.119 Hemochromatosis, unspecified; D45 Polycythemia vera; Q87.81 Alport syndrome; K21.9 Gastro-esophageal reflux disease without esophagitis; R00.2 Palpitations; R61 Generalized hyperhidrosis; J45.20 Mild intermittent asthma, uncomplicated; F39 Unspecified mood [affective] disorder; R42 Dizziness and giddiness; R20.2 Paresthesia of skin; E04.1 Nontoxic single thyroid nodule; F41.9 Anxiety disorder, unspecified; I10 Essential (primary) hypertension; Z86.718 Personal history of other venous thrombosis and embolism
CPT/HCPCS: 36415; 80053; 81003; 84484; 85025; 93005; 99283; 99285

== ENCOUNTER → 2024-10-06 17:31 | Outpatient (BNV) | payer MEDICAID, SELFPAY | PROVIDERS: Emergency Provider Emergency Medicine; Visit Provider Internal Medicine Cardiovascular Disease | DX: R00.2 Palpitations (principal) | CPT/HCPCS: 93010 ==

== ENCOUNTER → 2024-11-09 12:51 | Outpatient (BNVA) | payer MEDICAID, SELFPAY | PROVIDERS: Visit Provider Internal Medicine Gastroenterology | DX: Z13.79 Encounter for other screening for genetic and chromosomal anomalies (principal) ==

== ENCOUNTER 2025-01-21 11:53 | Outpatient (REF) | payer MEDICAID, SELFPAY ==
[2025-01-21 17:50] LABS: Albumin Level 4.5 g/dL (3.5-5.0); Alkaline Phosphatase 90 U/L (39-117); Anion Gap 13 (12-20); Aspartate Amino Transferase 26 U/L (5-37); Blood Urea Nitrogen 15 mg/dL (9-16); Calcium 9.7 mg/dL (8.4-10.2); Carbon Dioxide 25 mmol/L (22-29); Chloride 107 mmol/L (96-108); Estimated Glomerular Filt Rate > 60; Magnesium 2.1 mg/dL (1.6-2.6); Potassium 3.7 mmol/L (3.3-5.1); Sodium 141 mmol/L (135-145); Total Protein 7.2 g/dL (6.5-8.0)
[2025-01-21 18:03] LABS: Ferritin 278 ng/mL (20-250)
[2025-01-21 18:15] LABS: Alanine Aminotransferase 37 U/L (0-40); Folate 15.9 ng/mL (> or = 4.0); Vitamin B12 633 pg/mL (200-900)
--- OUTSIDE RECORDS SUMMARY | 2025-01-22 06:49 | XMS_ITS | Clinical Summary ---
Author Organization [facility] Address [address] [place] [address] Care Team Providers Care Stucco Plasterer Name Role Phone Asha Dodge Primary Care Provider [phone] Allergies Active Allergy Reactions Criticality Noted Date [...] Reports he has had difficulties getting to [facility] to get labs, will check his [...] is getting care for hemochromatosis at [facility]. 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 - He will continue care at [facility]. If any further questions come up, [...] Description 03/06/2025 1:15 PM EST Office Visit [facility] [address] [place] [facility] 85 [facility] [address] [place] [address] Kentrell Bell MD 85 [facility] [address] [place] [address] Scheduled Procedures Name Priority Associated [...] Years) (1 of 2 - PCV) 2004 Alcohol/Substance Use Screening 03/07/2024 Depression Screening and Follow-Up 03/07/2024 Social Drivers of Health Alessandra ual Screening 03/07/2024 Influenza Vaccine (#1) 2024 , 01/16/2021, 03/05/2019, Additional history exists COVID-19 Vaccine ( - 2024-2 6 season) 2024 11/13/2021, 03/16/2021, 07/15/2020, Additional history exists Diabetes Screening 02/26/2027 02/27/2024, 1 04/26/2023, 12/07/2023, Additional history exists DTaP,Tdap,and Td Vaccines (3 - Td or Tdap) 12/19/2032 12/19/2022, 06/14/2012 HIV Screening Completed 07/20/2023, 07/05, 01/20/2023 Hepatitis C Screening Completed 07/20/2023, 023 Procedures * Due to [place] state law, this organization might not be sharing negative HIV tests. Procedure Name Priority Date/Time Associated Diagnosis Comments COMPREHENSIVE METABOLIC PANEL Routine 08/04/2023 8:52 AM EDT Elevated lipase from Last 3 Months or Most Recently Relevant to Health Maintenance Results * Due to [place] state law, this organization might not be sharing negative HIV tests. * Comprehensive metabolic panel (08/04/2023 8:52 AM EDT) NA 142 135 - 145 mmol/L 08/04/2023 9:51 AM EDT [facility] K 3.7 3.5 - 5.3 mmol/L 08/04/2023 9:51 AM EDT [facility] Cl 104 97 - 110 mmol/L 08/04/2023 9:51 AM EDT [facility] CO2 31 24 - 32 mmol/L 08/04/2023 9:51 AM EDT [facility] Anion Gap 7 5 - 15 08/04/2023 9:51 AM EDT [facility] Glucose 84 70 - 99 mg/dL 08/04/2023 9:51 AM EDT [facility] Creatinine 1.08 0.60 - 1.30 mg/dL 08/04/2023 9:51 AM EDT [facility] Calcium 9.9 8.7 - 10.7 mg/dL 08/04/2023 9:51 AM EDT [facility] Total Protein 7.6 6.0 - 8.0 g/dL 08/04/2023 9:51 AM EDT [facility] Albumin 4.7 3.5 - 4.8 g/dL 08/04/2023 9:51 AM EDT [facility] Bilirubin, Total 0.7 0.3 - 1.2 mg/dL 08/04/2023 9:51 AM EDT [facility] Alkaline Phosphatase 85 30 - 115 U/L 08/04/2023 9:51 AM EDT [facility] AST 13 10 - 40 U/L 08/04/2023 9:51 AM EDT [facility] ALT 13 10 - 40 U/L 08/04/2023 9:51 AM EDT [facility] BUN 19 7 - 23 mg/dL 08/04/2023 9:51 AM EDT [facility] eGFR >90 >=60 mL/min/1. 73m2 08/04/2023 9:51 AM EDT [facility] Comment:The estimated glomer ular filtration rate (eGFR) is calculated using a new formula developed by the NKF-ASN task force to eliminate race-based correction factors. The new formula uses serum/plasma creatinine, age, and gender to determine eGFR. A value below 60mls/min might indicate kidney disease and will be flagged. For additional information, see Adriana et al, Am J Kidney Dis. 2021;79(2):268- 288, A Unifying Approach for GFR estimation: Recommendations of the NKF-ASN Task Force on Reassessing the Inclusion of Race in Diagnosing Kidney Disease . Blood Structure of peripheral vein / Unknown Venipuncture / Unknown 08/04/2023 8:52 AM EDT 08/04/2023 9:12 AM EDT us Sheila Steele MD LAB BLOOD ORDERABLES Final Result [facility] [address] [place] [address], from Last 3 Months or Most Recently Relevant to Health Maintenance Insurance [employer] Care Teams Stucco Plasterer Relationship Specialty Start Date End Date Asha Dodge [address] [place] [address] PCP - General 07/15/23
--- OUTSIDE RECORDS SUMMARY | 2025-01-22 06:49 | XMS_ITS | Encounter Summary ---
Author Organization [facility] Address [address] [place] [address] Care Team Providers Care Hydroelectric Plant Mechanical Engineer Name Role Phone Asha Dodge Primary Care Provider [phone] Encounter Details Date Type Department Care Team (Late st Contact Info) Description 03/21/2023 Orders Only [facility] Interventional Radiology [address] [place], [place] [phone] Doug Hassan MD [address] [place], [place] [id number] Social History Tobacco Use Types Packs/Day Years [...] Department Care Team (Late Contact Info) Description 03/06/2025 1:15 PM EST Office Visit [facility] [address] [place] [facility] 85 [facility] [address] [place] [address] Kentrell Bell MD [address] [address] Scheduled Procedures Name Priority Associated Diagnoses Date/Ti me UPPER ENDOSCOPY WITH ENDOSCO PIC ULTRASOUND WITH POSSIBLE MODERATE SEDATION Elevated lipase documented as of this encounter Visit Diagnoses Not on filedocumented in this encounter Care Teams Hydroelectric Plant Mechanical Engineer Relationship Specialty Start Date End Date Asha Dodge [address] [place] [address] PCP - General 07/15/23 documented as of this encounter
--- OUTSIDE RECORDS SUMMARY | 2025-01-22 06:49 | XMS_ITS | Encounter Summary ---
Author Organization [facility] Address [address] [place] [address] Phone Care Team Providers Care Financial Planning Adviser Name Role Phone Asha Dodge MD Primary Care Provider + Peter Lerner MD, MS Unavailable [phone] Dallin Andrews MD Unavailable [phone] Encounter Details Date Type Department Care Team (Late st Contact Info) Description 12/21/2024 Orders Only [facility]- Renal 45 [facility] [place] [address] Provider, MD Morena [address] [place] [address] Social History Tobacco Use Types Packs/Day Years [...] with a working camera? Not on file Sex and Gender Information Value Date Recorded Sex Assigned at Not on file Legal Sex Male 10:39 AM EDT Gender Identity Male 06/29/2023 2:26 PM EDT Sexual Orientation Choose not to disclose 2023 2:26 PM EDT documented as of this encounter Plan of Treatment Upcoming Encounters Date Type Department Care Team (Late st Contact Info) Description 06/20/2025 2:00 PM EDT Office Visit [facility] Medical Specialties 45 [facility] [place] [address] Angelo Bryan MD, MPH 75 [facility], [place] [address] [email or web address] documented as of this encounter Procedures Procedure Name Priority Date/Time Associated Diagnosis Comments OUTSIDE LAB Routine 12/21/2024 9:54 AM EDT documented in this encounter Results * Outside Lab (12/21/2024 9:54 AM EDT) us Historical Provider LAB BLOOD BKR ORDERABLES Final Result documented in this encounter Visit Diagnoses Not on filedocumented in this encounter Care Teams Financial Planning Adviser Relationship Specialty Start Date End Date Asha Dodge MD [address] [place] [address] PCP - General Family Medicine 06/09/23 Peter Lerner MD, MS [address] [place] [address], 3rd [place] [address] [email or web address] Primary Care Physician Internal Medicine 02/22/24 Dallin Andrews MD [address] [place] [address] [place] [address] [email or web address] Hematology 12/20/24 documented as of this encounter Additional Source Comments The information contained in this document represents components of the legal health record. It is not the complete legal health record.[facility]
--- OUTSIDE RECORDS SUMMARY | 2025-01-22 06:50 | XMS_ITS | Clinical Summary ---
Author Organization [facility] Address 100 [facility] 20 0 [place] [address] Phone Care Team Providers Care Shellfish Processing Machine Tender Name Role Phone Kaylie Cardona MD Primary Care Provider [phone] Allergies No known active allergies Medications omeprazole [...] (#1) 2024 , 03/05/2019, 12/24/2016 Insurance Medicaid [place] [address] [place] [address] Medicaid [place] Care Teams Shellfish Processing Machine Tender Relationship Specialty Start Date End Date Kaylie Cardona MD PCP - General Family Medicine 05/04/22
--- OUTSIDE RECORDS SUMMARY | 2025-01-22 06:50 | XMS_ITS | Encounter Summary ---
Author Organization [facility] Address [address] [place] [address] Phone Care Team Providers Care Nursing Professor Name Role Phone Asha Dodge MD Primary Care Provider + Peter Lerner MD, MS Unavailable [phone] Dallin Andrews MD Unavailable [phone] Encounter Details Date Type Department Care Team (Late st Contact Info) Description 12/20/2024 Orders Only [facility]- Renal 45 [facility] [place] [address] Provider, MD Morena [address] [place] [address] Social History Tobacco Use Types Packs/Day [...] Description 06/20/2025 2:00 PM EDT Office Visit [facility] Medical Specialties 45 [facility] [place] [address] Angelo Bryan MD, MPH 75 [facility], [place] [address] [email or web address] documented as of this encounter Procedures Procedure Name Priority Date/Time Associated Diagnosis Comments OUTSIDE LAB Routine 12/20/2024 4:38 PM EDT documented in this encounter Results * Outside Lab (12/20/2024 4:38 PM EDT) us Historical Provider LAB BLOOD BKR ORDERABLES Final Result documented in this encounter Visit Diagnoses Not on filedocumented in this encounter Care Teams Nursing Professor Relationship Specialty Start Date End Date Asha Dodge MD [address] [place] [address] PCP - General Family Medicine 06/09/23 Peter Lerner MD, MS [address] [place] [address], 3rd [place] [address] [email or web address] Primary Care Physician Internal Medicine 02/22/24 Dallin Andrews MD [address] [place] [address] Hematology [place] [address] [email or web address] Hematology 12/20/24 documented as of this encounter Additional Source Comments The information contained in this document represents components of the legal health record. It is not the complete legal health record.[facility]
--- OUTSIDE RECORDS SUMMARY | 2025-01-22 06:50 | XMS_ITS | Encounter Summary ---
Author Organization [facility] Address [address] [place] [address] Care Team Providers Care Supervisor Die Casting Name Role Phone Asha Dodge Primary Care Provider [phone] Encounter Details Date Type Department Care Team (Late st Contact Info) Description 02/17/2022 Telephone 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 Please follow up with PT at [phone]. documented in this encounter Plan of Treatment Upcoming Encounters Date Type Department Care Team (Late st Contact Info) Description 03/06/2025 1:15 PM EST Office Visit [facility] 85 [place] [facility] 85 [facility] [address] [place] [address] Kentrell Bell MD 85 [facility] [address] [place] [address] Scheduled Procedures Name Priority Associated Diagnoses Date/Ti me UPPER ENDOSCOPY WITH ENDOSCO PIC ULTRASOUND WITH POSSIBLE MODERATE SEDATION Elevated lipase documented as of this encounter Visit Diagnoses Not on filedocumented in this encounter Care Teams Supervisor Die Casting Relationship Specialty Start Date End Date Asha Dodge [address] [place] [address] PCP - General 07/15/23 documented as of this encounter
--- OUTSIDE RECORDS SUMMARY | 2025-01-22 06:51 | XMS_ITS | Clinical Summary ---
Author Organization [facility] Address [address] [address] Phone Care Team Providers Care Milling/Polishing Operator Name Role Phone Asha Dodge MD Primary Care Provider + Peter Lerner MD, MS Unavailable [phone] Dallin Andrews MD Unavailable [phone] Allergies Active Allergy Reactions Criticality Noted Date [...] DDRx for genotype allele specific prescribing guidelines: https://ddrx.pharmgkb.org/results?genotypeSelection=%7B%84HZR6U8%22%3A%5B%22*6%2 2%2C% 22*6%22%5D%7D GO TO IC SITE FOR GENERAL 2B6 GENE PRESCRIBING GUIDELINES : https://www.pharmgkb.org/gene/PA123/prescribingInfo Anxiety and depression 02/22/2024 PTSD (post-traumatic stress disorder) 02/22/2024 OCD (obsessive compulsive disorder) 02/22/2024 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 Hereditary hemochromatosis 02/22/2024 Assessment [...] the 2018 equations. The ASCVD Risk score (Hiram DK, et al., 2019) failed to calculate for the following reasons: The 2019 ASCVD risk score is only valid for ages 40 to 79 Please consider using the newly developed race-neutral PREVENT score to determine CVD risk: https://professional.heart.org/en/mbcenumbfd-mbl-zjvpvuukeb/prevent-calculator Family history of early CAD 02/22/2024 Encounters Date Type Department Care Team Description 01/07/2025 Telephone [facility] Medical Specialties [address] [address] Fredy Miller PA-C 01/07/2025 Orders Only [facility] Medical [facility] [address] [address] Fredy Miller PA-C 12/21/2024 Orders Only [facility]- Renal [address] [place] [address] Provider, MD Morena 12/20/2024 3:00 PM EDT Office Visit [facility] [address] [address] Angelo Bryan MD, MPH Hereditary hemochromatosis (Primary Dx) 12/20/2024 Orders Only [facility]- Renal [address] [place] [address] ProviderMorena MD 11/06/2024 5:20 PM EDT Telemedicine [facility] Virtual Urgent Care [address] [place] [address] Omid Cantrell MD Rash and other nonspecific skin eruption (Primary Dx) from Last 3 Months Social History Tobacco [...] Description 06/20/2025 2:00 PM EDT Office Visit [place] [address] [place] [address] Angelo Bryan MD, MPH 75 [facility], [place] [address] [email or web address] Health Maintenance Due Date Last Done Comments DEPRESSION SCREENING 1997 SMOKING Hx and SMOKELESS TOBACCO SCREENING 1998 HEPATITIS C SCREENING 10/18/2003 HIV ONE-TIME SCREENING (18-65 YEARS) 10/18/2003 SCREENING FOR DIABETES 2020 INFLUENZA VACCINE (#1) 2024 , 01/16/2021, 03/05/2019, Additional history exists COVID-19 VACCINE ( season) 2024 11/13/2021, 03/16/2021, 07/15/2020, Additional history exists LIPID PANEL 07/12/2029 07/12/2024, 03/30/2023 Adult Td,Tdap Booster 12/19/2032 12/19/2022, 013 HEPATITIS A VACCINES Aged Out 08/13/2024 No long er eligible based on patient's age to complete this topic HIB VACCINES Aged Out No longer eligi ble based on patient's age to complete this topic IPV VACCINES Aged Out No longer eligi ble [...] OUTSIDE LAB Routine 12/21/2024 9:54 AM EDT OUTSIDE LAB Routine 12/20/2024 4:38 PM EDT from Last 3 Months Results * Outside Lab (12/21/2024 9:54 AM EDT) Only the most recent of2 resultswithin the time period is included. us Historical Provider LAB BLOOD BKR ORDERABLES Final Result from Last 3 Months Insurance C3 [facility] [place] [place] [address] [place] [address] [place] [address] [place] [address] C3 ACO Care Teams Milling/Polishing Operator Relationship Specialty Start Date End Date Asha Dodge MD [address] [place] [address] PCP - General Family Medicine 06/09/23 Peter Lerner MD, MS [address] [place] [address], [address] [place] [address] [email or web address] Primary Care Physician Internal Medicine 02/22/24 Dallin Andrews MD [address] [place] [address] [place] [address] [email or web address] 12/20/24 Additional Source Comments The information contained in this document represents components of the legal health record. It is not the complete legal health record.[facility]
--- OUTSIDE RECORDS SUMMARY | 2025-01-22 06:51 | XMS_ITS | Encounter Summary ---
Author Organization [facility] Address [address] [place] [address] Care Team Providers Care Solderer Production Line Name Role Phone Asha Dodge Primary Care Provider [phone] Encounter Details Date Type Department Care Team (Late st Contact Info) Description 07/17/2021 Orders Only [facility] [address] [place] [address] Brendan Kaylie [address] [place] [address] Social History Tobacco Use Types Packs/Day Years [...] Description 03/06/2025 1:15 PM EST Office Visit [facility] 85 [place] Pulmonology 85 [facility] [address] [place] [address] Kentrell Bell MD [address] [facility] [address] [place] [address] Scheduled Procedures Name Priority Associated Diagnoses Date/Ti me UPPER ENDOSCOPY WITH ENDOSCO PIC ULTRASOUND WITH POSSIBLE MODERATE SEDATION Elevated lipase documented as of this encounter Procedures * Due to [place] state law, this organization might not be sharing negative HIV tests. Procedure Name Priority Date/Time Associated Diagnosis Comments LAB - SCANNED Routine 04/08/2021 documented in this encounter Results * Due to [place] state law, this organization might not be sharing negative HIV tests. * LAB - SCANNED (04/08/2021) Kaylie Cardona LAB HISTORICAL RESULTS Final Res ult documented in this encounter Visit Diagnoses Not on filedocumented in this encounter Care Teams Solderer Production Line Relationship Specialty Start Date End Date Asha Dodge [address] [place] [address] PCP - General 07/15/23 documented as of this encounter
[2025-01-22 12:44] LABS: E. coli EAEC Not Detected (Not Detect.); E. coli EPEC Not Detected (Not Detect.); E. coli ETEC Not Detected (Not Detect.); E. coli STEC Not Detected (Not Detect.); Shigella sp./EIEC Not Detected (Not Detect.)
[2025-01-26 12:13] LABS: Vit B3 - Nicotinic Acid <20 ng/mL (see note); Vitamin B5 (Pantothenic Acid) 59 ng/mL (<275)
== END 2025-01-21 11:54 | disposition home or self-care (01) ==
LOC: HO.LAB 11:53
PROVIDERS: PCP General Practice; Visit Provider Internal Medicine Gastroenterology
DX: K75.81 Nonalcoholic steatohepatitis (NASH) (principal); R19.7 Diarrhea, unspecified; E46 Unspecified protein-calorie malnutrition; R68.81 Early satiety
CPT/HCPCS: 36415; 80053; 82306; 82607; 82656; 82705; 82728; 82746; 83519; 83735; 84207; 84425; 84446; 84590; 84591; 87507; 99212

== ENCOUNTER 2025-01-21 11:53 | Outpatient (AMB) | payer MEDICAID, SELFPAY ==
--- NOTE | 2025-01-21 11:56 | MHC.OFFVIS ---
Vital Signs 01/21/25 12:06 Height 5 ft 11 in Weight 198 lb BMI 27.6 BP not taken reason Patient Refused Pulse 100 Pulse Source Pulse Oximeter Pulse Oximetry (%) 96 Oxygen Delivery Method Room Air Intake Visit Reasons: 5m Intake Note: Est pt for mgmt of GERD + hemochromatosis. CC: C.O. new onset of abd pain (umbilical) w/ burning and stabbling qualities. Pt report onset of pain, accompanied by loose stools, within the last 2 weeks. Pt does report that he had eaten something spicy once but has not had any trigger foods since then. Despite this, sx have persisted. Pt would also like to discuss recent hospitalization which occurred [facility] [place] [facility] Supervisor Hand Workers Required: No Accompanied by: Self / Same As Patient Allergies Cyqsfft-XSN-SoR Reductase Inhibitor Allergy (Intermediate, Verified 01/21/25 12:02) Palpitations metronidazole (From Flagyl) Adverse Reaction (Intermediate, Verified 01/21/25 12:02) Nausea, sweats, Diarrhea HPI HPI 5m: Details: 39 yr old m w/ of GERD< hemochromatosis, IBS here for f/u RECAP: he is only taking famotidine 20 mg OD prn he is noting thin stools and diarrhea he was having constipation before this he had colonoscopy 2020 for abn bowel habit and was normal he had many visits with pancreatitis EGD with esophagitis and erosive gastritis labs with mild lipase elevation and amylase --nml LFT, HGB 18 g/dl had MRI scanned 06/28 with moderate iron overload and normal pancreas INTERIM: general discussion about hemachromatosis and pos for CFTR --heterozygous he has epigastric pain wth fatty foods, he cant ingest oil foods at all stool is smelly and sticks he has q 3 weekly phlebotomy - [facility] he has bloating he can have palpitations with certain foods EXAM: GENERAL: The patient is well developed and nontoxic. VITAL SIGNS:see workflow HEENT: Nonicteric sclerae, PERRLA, EOMI. Oropharynx clear. Moist mucous membranes. Conjunctivae appear well perfused. No thyroid mass. CHEST: Chest wall is nontender. HEART: Regular rate and rhythm without murmurs. LUNGS: Clear to auscultation bilaterally. ABDOMEN: Soft, positive bowel sounds, tender epigastrium, no organomegaly.no flank tenderness SKIN: veronica dermatitis with scaly skin, NEUROLOGIC: Cranial nerves II-XII intact without motor/sensory deficit. Psych: normal affect A/P: 1/ Polycythemia, and iron overload 2/ CFTR pos, has epigastric pains, possibly pancreatitis attacks, has abn stools PLAN: 1/check fecal elastase, fecal fat, c dif and PCR panel 2/ see if can get trikafta approved for him --will need reg LFT checks per protocol if approved 3/ gastric emptying study --check for dumping PFSH 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 Thrombosed external hemorrhoid Autosomal dominant hereditary hemochromatosis Mild intermittent allergic 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 Mood disorder Dizziness Paresthesia Thyroid nodule Anxiety HTN (hypertension) Surgical History History of esophagogastroduodenoscopy (EGD) Hx of colonoscopy S/P fine needle aspiration Hx of wisdom tooth extraction Family History Father CLL (chronic lymphocytic leukemia) Diabetes Paternal Grandfather Diabetes Maternal Grandmother H/O heart bypass surgery Mother Drug abuse Social History Household Members: None Housing: Apartment Are you a primary patient care specialist to a significant other at home: No Do you presently have visiting nurse or other home services: No Alcohol intake: never Patient Tobacco Use Status: Never used Tobacco service: No Current occupational status: unemployed Physical Exam Vital Signs: Last Vital Signs Pulse 100 01/21/25 12:06 Pulse Ox 96 01/21/25 12:06 Oxygen Delivery Method Room Air 01/21/25 12:06 BMI result Body Mass Index 27.6 Assessment & Plan Assessment & Plan (1) Diarrhea: Code(s): R19.7 - Diarrhea, unspecified Category: Medical Plan: as above Orders: Orders Fecal Fat Qualitative Today R19.7 - Diarrhea, unspecified CDiff Gene PCR Today R19.7 - Diarrhea, unspecified Comprehensive Met. Panel Today K75.81 - Nonalcoholic steatohepatitis (VERDIN), R19.7 - Diarrhea, unspecified Vitamin B1 Today R19.7 - Diarrhea, unspecified Vitamin C Today R19.7 - Diarrhea, unspecified Vitamin D 25-OH Total Today R19.7 - Diarrhea, unspecified Vitamin K1 Today E46 - Unspecified protein-calorie malnutrition, R19.7 - Diarrhea, unspecified Ferritin Today R19.7 - Diarrhea, unspecified Pancreatic Elastase-1 Today R19.7 - Diarrhea, unspecified Trypsin Today R19.7 - Diarrhea, unspecified GI Panel Today R19.7 - Diarrhea, unspecified NM gastric emptying study Today R68.81 - Early satiety Vitamin A Today R19.7 - Diarrhea, unspecified Vitamin B12 and Folate Today R19.7 - Diarrhea, unspecified Vitamin B3 (Niacin) Today R19.7 - Diarrhea, unspecified Vitamin B5 (Pantothenic Acid) Today R19.7 - Diarrhea, unspecified Vitamin B6 Today R19.7 - Diarrhea, unspecified Vitamin E Today R19.7 - Diarrhea, unspecified Magnesium Today R19.7 - Diarrhea, unspecified Medications: New phmemamcyff-dqqcjvjcle-rtsuxtq 100-50-75mg (d) /75 mg (n) (Trikafta) 1 ea PO PER PKG DIR 56 ea 0RF Coding Level of Care Code Est Pt Level 4 (99322) Diagnoses Diarrhea R19.7
[2025-01-21 12:06] VITALS: PULSE 100; O2SAT 96; BMI 27.6
== END 2025-01-21 12:46 | disposition home or self-care (01) ==
LOC: HO.HGI 11:53
PROVIDERS: PCP General Practice; Visit Provider Internal Medicine Gastroenterology
DX: R19.7 Diarrhea, unspecified (principal)
CPT/HCPCS: 99214

== ENCOUNTER 2025-02-15 23:30 | Emergency (ER) | payer MEDICAID, SELFPAY ==
--- OUTSIDE RECORDS SUMMARY | 2025-02-13 23:59 | XMS_ITS | Continuity of Care Document ---
Author Organization [facility] ter Address [address] [place] [address]- Care Team Providers Care Administrative Volunteer Name Role Phone Dar JOHNSON, Asha Strong [id number]): [facility] - 02/13/25 [facility] [address] [place] [address]- Attending Physician: Juliana JOHNSON(Hem/Onc), Dallin Still Admitting Physician: Juliana JOHNSON(Hem/Onc)Dallin Referring Physician: Juliana JOHNSON(Hem/Onc), Dallin Still Encounter Type: Pre-Outpt Allergies, Adverse Reactions, Alerts Substance Criticality Severity Reaction Reaction Severity Status Adhesive Bandage Act luna Medications lidocaine 5% topical ointment 50 Gm, 0 Refill(s), APPLY TOPICALLY IF NEEDED FOR MILD PAIN (PRIOR TO PHLEBOTOMY)., 0 Refills, 02/20/24 1:40:00 PM EST, Partial fill upon patient request if the prescription is for a schedule II opioid drug. Start Date: 02/20/24 Status: Ordered Medication Dispense Status: Completed Total Allowed Fills: 1 Fills Dispensed: 0 nystatin-triamcinolone topical 065993 u/gm-0.1% ointment 15 Gm, 0 Refill(s), APPLY TO AFFECTED AREA TWICE A DAY, 0 Refills, 02/20/24 1:40:00 PM EST, Partialfill upon patient request if the prescription is for a schedule II opioid drug. Start Date: 02/20/24 Status: Ordered Medication Dispense Status: Completed Total Allowed Fills: 1 Fills Dispensed: 0 polyethylene glycol 3350 oral powder for reconstitution 510 Gm, 0 Refill(s), DISSOLVE 17 GRAMS INTO BEVERAGE THEN DRINK BY MOUTH ONCE DAILY, 0 Refills, 02/20/24 1:40:00 PM EST, Partial fill upon patient request if the prescription is for a schedule II opioid drug. Start Date: 02/20/24 Status: Ordered Medication Dispense Status: Completed Total Allowed Fills: 1 Fills Dispensed: 0 simethicone 80 mg oral tablet, chewable 80 mg, 1, tablet, 3 times a day after meals and bedtime, Refills 0, Maintenance, 08/21/24 2:56:00 PMEDT Start Date: 08/21/24 Status: Ordered Medication Dispense Status: Completed Total Allowed Fills: 1 Fills Dispensed: 0 ZyrTEC 10 mg oral tablet 1 tablet = 10 mg, By Mouth, Daily, # 30 tablet, 0 Refills, Maintenance, 08/21/24 2:55:00 PM EDT, Tablet Start Date: 08/21/24 Status: Ordered Medication Dispense Status: Completed Quantity: 30.0 Unit: tablet Total Allowed Fills: 1 Fills Dispensed: 0 Social History Social History Type Response Smoking Status Never (less than 100 in lifetime) entered on: 05/29/18 Sex Sex Representation Male (finding) Patient Care team information Care Team Personnel Name: Kylie Ordonez RN Position: [facility] RN Member Role: Primary Care Nurse Name: Blessing Joaquin RN Position: [facility] HMO Reviewer Member Role: Primary Care Nurse Name: Asha Dodge MD Position: Reference Physician Member Role: PCP Address: [address] [place] [address] Telecom: Name: Raya Sandoval RN Position: [facility] RN Member Role: Primary Care Nurse Name: Michelle Jean RN Position: [facility] RN Member Role: Primary Care Nurse Name: Laurie Ureña RN Position: [facility] RN Member Role: Primary Care Nurse Name: Indira Ceballos RN Position: [facility] RN Member Role: Primary Care Nurse Care Team Related Persons Name: SAVANNAH KEITA Name: PATIENT STATES, NO ONE Insurance Providers Guarantor name: [facility] Information #: 1 Payer: [employer] Payer Identifier: [employer] Member Number: [id number] Group Number: [id number] Subscriber Identifier: [id number] Relationship to Subscriber: self Coverage Type: MEDICAID Coverage Verification Date: DAXA Telecom: [employer] Address: NA
--- NOTE | ~2025-02-15 | XR_ITS ---
CLINICAL HISTORY: Question foreign body question fracture --- Additional Notes or Special Instructions: Had a glass piece cut the heel of his left foot. Also 3 view left foot Comparison: X-rays of the left foot from 12/02/2023 Findings: No acute displaced fracture. Likely accessory ossicle adjacent to imaged cuboid. Truncation of the 1st metatarsal is nonspecific and likely a congenital basis. No dislocation. No retained metallic foreign body. Soft tissue swelling includes superficial to calcaneus. IMPRESSION: 1. No acute displaced fracture. 2. No dislocation. This document has been electronically signed by: Levi Ruiz MD on 02/16/2025 02:31:15
[2025-02-15 23:44] VITALS: BP 130/82; BP 140/90; PULSE 68; PULSE 77; RESP 16; TEMP 37; O2SAT 98; BMI 28.2
--- NOTE | 2025-02-16 00:51 | ED.WOUNDLAC ---
HPI - Wound/Laceration General Chief Complaint: Wound/Laceration Stated Complaint: cut on foot after stepping on glass Time Seen by Provider: 02/16/25 00:44 History of Present Illness HPI narrative: Patient is a 39-year-old male stepped on glass through the left foot. Complaining of a small laceration to the left foot. Bleeding is now controlled. Patient's tetanus is up-to-date. Also dropped something on her is mid foot. There is no systemic complaints. Patient has a history of polycythemia rubra vera. Patient is from home. Related Data Home Medications ?Medication ?Instructions ?Recorded ?Confirmed triamcinolone acetonide 0.025 % 1 appl topical BID PRN Rash 06/12/23 07/02/24 topical cream lorazepam 0.5 mg tablet 0.5 mg PO BEDTIME PRN Rash 12/12/23 07/02/24 polyethylene glycol 3350 17 17 g PO DAILY PRN constipation 01/21/25 gram/dose oral powder (Miralax) Previous Rx's ?Medication ?Instructions ?Recorded cholecalciferol (vitamin D3) 1,250 1,250 mcg PO QWEEK #8 caps 09/03/24 mcg (50,000 unit) capsule esomeprazole magnesium 20 mg 20 mg PO DAILY #30 caps 09/03/24 capsule,delayed release levomefolate calcium 15 mg tablet 15 mg PO DAILY #30 tabs 12/27/24 elexacaf 100 mg-tezacaf 50 1 ea PO PER PKG DIR #56 ea 01/21/25 mg-ivacaf 75 mg(d)/ivacaf 75 mg(n) gran pk (Trikafta) amoxicillin 875 mg-potassium 1 tab PO BID #10 tabs 02/16/25 clavulanate 125 mg tablet Allergies Allergy/AdvReac Type Severity Reaction Status Date / Time Yrthqmf-PUI-NyO Reductase Allergy Intermediate Palpitation Verified 02/15/25 23:52 Inhibitor s metronidazole (From Flagyl) AdvReac Intermediate Nausea, Verified 02/15/25 23:52 sweats, Diarrhea Review of Systems Review of Systems: No fever no chills no systemic complaints Yes all other systems are reviewed and are negative PMFSH Past Medical History Attestation statement: The following information was validated with the patient. 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 Thrombosed external hemorrhoid Autosomal dominant hereditary hemochromatosis Mild intermittent allergic 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 Mood disorder Dizziness Paresthesia Thyroid nodule Anxiety HTN (hypertension) Surgical History History of esophagogastroduodenoscopy (EGD) Hx of colonoscopy S/P fine needle aspiration Hx of wisdom tooth extraction Family History Family History Father CLL (chronic lymphocytic leukemia) Diabetes Paternal Grandfather Diabetes Maternal Grandmother H/O heart bypass surgery Mother Drug abuse Social History Social History Household Members: None Housing: Apartment Are you a primary healthcare representative to a significant other at home: No Do you presently have visiting nurse or other home services: No Alcohol intake: never Patient Tobacco Use Status: Never used Tobacco Advance Directives: No Advance Directives Information Provided: Yes service: No Current occupational status: unemployed Physical Exam Exam: Exam: Appearance: Alert. Oriented X3. No acute distress. Eyes: Pupils equal, round and reactive to light. ENT: Pharynx normal. Neck: Normal inspection. Neck supple. No lymph nodes noted. No crepitus CVS: Normal heart rate and rhythm. Pulses normal. Normal S1 and S2 Respiratory: No respiratory distress. Breath sounds normal. No Wheezing. No rales Abdomen: Soft and nontender. No rigidity. No distention. good BS x4 Skin: Skin warm and dry. Normal skin color. Normal skin turgor. Extremities: No lower extremity edema. Neurovascular intact to all extremities. Very small approximately 1 cm laceration to the sole of the heel. Bleeding is controlled Neuro: Oriented X 3. No motor deficit. No sensory deficit. Moving all extermities. No slurred speech Vital Signs: Vital Signs: Last Vital Signs Temp 98.6 F 02/15/25 23:44 Pulse 68 02/15/25 23:44 Resp 16 02/15/25 23:44 BP 130/82 02/15/25 23:44 Pulse Ox 98 02/15/25 23:44 O2 Del Method Room Air 02/15/25 23:44 BMI result Body Mass Index 28.2 Medical Decision Making Medical Decision Making [facility] Narrative: Patient well-appearing no acute distress. Bleeding is controlled. We will get an x-ray to make sure that there is no foreign object. Patient's tetanus shot is up-to-date. In no distress. X-ray negative. Patient on antibiotics and discharged home. My interpretation patient's x-ray showed no acute fracture. No foreign body. Differential Diagnosis Differential Diagnoses: The differential diagnosis associated with the presentation includes Foreign body, fracture Admission/Observation Consideration of admission/observation: Escalation of care including admission/observation considered Independent Interpretation I performed an independent interpretation of an: Plain X-Ray (My interpretation patient's x-ray showed no acute fracture no foreign body) Discharge Plan Discharge Clinical Impression: Foot laceration Instructions: Laceration (DC) Prescriptions: New amoxicillin-pot clavulanate 875-125 mg tablet 1 tab PO BID Qty: 10 0RF No Action levomefolate calcium 15 mg tablet 15 mg PO DAILY Qty: 30 3RF triamcinolone acetonide 0.025 % cream 1 appl TOPICAL BID PRN (Reason: Rash) polyethylene glycol 3350 [Miralax] 17 gram/dose powder 17 g PO DAILY PRN (Reason: constipation) Trikafta 100-50-75mg (d) /75 mg (n) granules in packet, sequential 1 ea PO PER PKG DIR Qty: 56 0RF lorazepam 0.5 mg tablet 0.5 mg PO BEDTIME PRN (Reason: Rash) esomeprazole magnesium 20 mg capsule,delayed release(DR/EC) 20 mg PO DAILY Qty: 30 3RF cholecalciferol (vitamin D3) 1,250 mcg (50,000 unit) capsule 1,250 mcg PO QWEEK Qty: 8 0RF Referrals: Physician,Unknown J [Physician, Medical] - 02/19/25 Print Language: Maori
--- NOTE | 2025-02-16 01:17 | PC.NURSE ---
wound on L foot cleaned with normal saline and wrapped with a non adhesive pad and gauze wrap, pt tolerated well.
--- OUTSIDE RECORDS SUMMARY | 2025-02-16 01:26 | XMS_ITS | Encounter Summary ---
Author Organization [employer] Address [address] [place] [address] Care Team Providers Care Sprinkling System Installer Name Role Phone Asha Dodge MD Primary Care Provider [phone] Reason for Visit * Reason Onset Date Comments Call Back Request 06/01/2024 Encounter Details Date Type Department Care Team ([facility] st Contact Info) Description 06/01/2024 Telephone [facility] MEDICINE [address] [place], [place] [phone] Asha Dodge MD [address] [place], [place] [phone] Call Back Request Social History Tobacco Use [...] him a call back. Contact pt at [phone] documented in this encounter Plan of Treatment Not on file documented as of this encounter Visit Diagnoses Not on filedocumented in this encounter Additional Health Concerns Assessment Noted Time PHQ-9 Depression Total Score: 3 06/03/19 24 3:02 PM EDT documented as of this encounter Care Teams Sprinkling System Installer Relationship Specialty Start Date End Date Asha Dodge MD [address] [place] [phone] PCP - General Family Medicine 12/29/22 Cyn Oviedo Critical Care Transport NurseCheese Weigher 08/08/24 documented as of this encounter
--- OUTSIDE RECORDS SUMMARY | 2025-02-16 01:26 | XMS_ITS | Encounter Summary ---
Author Organization [employer] Address [address] [address] [place] [address] Care Team Providers Care Global Cto Name Role Phone Asha Dodge MD Primary Care Provider [phone] Encounter Details Date Type Department Care Team (Late st Contact Info) Description 12/02/2023 Orders Only [facility] MEDICINE [address] [place], [place] [phone] Asha Dodge MD [address] [place], [place] [phone] Social History Tobacco Use Types Packs/Day Years [...] AM EDT Narrative 12/23/2023 4:24 PM EDT [facility] [address] [place] [address] [place] [address] Ultrasound Report Signed Patient: Arben Emanuel MR#: [id number] : 1985 Acct:[id number] Age/Sex: 38 / M ADM Date: 12/21/23 Loc: HO.HMGCX Attending Dr: Marco Spears MD Ordering Physician: Marco Spears MD Date of Service: 12/21/23 Procedure(s): US SMA Accession Number(s): [id number] cc: Marco Spears MD; Asha Dodge EXAMINATION: [...] Varela MD in OV> 12/23/23 1621 DD/ 2 TD/TT: 12/21/23 0930 It Compliance Analyst: SS Procedure Note Donotuseinterpreter, Image - 12/23/2023 [facility] Primary Care [address] [place] [address] [place] [address] Ultrasound Report Signed Patient: Landen EmanuelonyMR#: [id number] : 1985Acct:[id number] Age/Sex: 38 / MADM Date: 12/21/23 Loc: HO.HMGCX Attending Dr: Marco Spears MD Ordering Physician: Marco Spears MD Date of Service: 12/21/23 Procedure(s): US SMA Accession Number(s): [id number] cc: Marco Spears MD; Asha Dodge EXAMINATION: [...] Varela MD in OV> 12/23/23 1621 DD/ 09 TD/TT: 12/21/23929 It Compliance Analyst: SS [facility] External Provider IMG US PROCEDURES Final Result documented in this encounter Visit Diagnoses Not on filedocumented in this encounter Additional Health Concerns Assessment Noted Time PHQ-9 Depression Total Score: 3 06/03/19 24 3:02 PM EDT documented as of this encounter Care Teams Global Cto Relationship Specialty Start Date End Date Asha Dodge MD [address] [place] [phone] PCP - General Family Medicine 12/29/22 Cyn Oviedo Senior Javascript DeveloperLumber Sales Supervisor 08/08/24 documented as of this encounter
--- OUTSIDE RECORDS SUMMARY | 2025-02-16 01:26 | XMS_ITS | Encounter Summary ---
Author Organization [employer] Address [address] [facility] 7t [place] [address] Care Team Providers Care Miller Distillery Name Role Phone Asha Dodge MD Primary Care Provider [phone] Encounter Details Date Type Department Care Team ([facility] st Contact Info) Description 12/02/2022 Orders Only [facility] MED & PEDS [address] [place], [place] [phone] Kaylie Cardona MD [address] [place] [address] Memory loss (Primary Dx) Social History Tobacco [...] Primary documented in this encounter Care Teams Miller Distillery Relationship Specialty Start Date End Date Asha Dodge MD [address] [place] [address] PCP - General Family Medicine 12/29/22 Cyn Oviedo Computer Education TeacherCognos 08/08/24 documented as of this encounter
--- OUTSIDE RECORDS SUMMARY | 2025-02-16 01:26 | XMS_ITS | Encounter Summary ---
Author Organization [employer] Address [address] [place] [address] Care Team Providers Care Bake Room Worker Name Role Phone Asha Dodge MD Primary Care Provider [phone] Reason for Visit * Reason Onset Date Comments PT-1 11/09/2023 Encounter Details Date Type Department Care Team ([facility] st Contact Info) Description 11/09/2023 Telephone [facility] MEDICINE [address] [place], [place] [phone] Asha Dodge MD [address] [place], [place] [phone] PT-1 Social History Tobacco Use Types Packs/Day [...] or facility name: [facility] Facility Address: [address] [place] [address] Escort needed: Y/N: No Do you have [...] documented as of this encounter Care Teams Bake Room Worker Relationship Specialty Start Date End Date Asha Dodge MD [address] [place] [phone] PCP - General Family Medicine 12/29/22 Cyn Oviedo Beam DyerTitle Lawyer 08/08/24 documented as of this encounter
--- OUTSIDE RECORDS SUMMARY | 2025-02-16 01:26 | XMS_ITS | Encounter Summary ---
Author Organization [employer] Address [address] [place] [address] Care Team Providers Care Lens Cleaner Name Role Phone Asha Dodge MD Primary Care Provider [phone] Reason for Visit * Reason Onset Date Comments PT1 11/21/2023 Encounter Details Date Type Department Care Team ([facility] st Contact Info) Description 11/21/2023 Telephone [facility] MEDICINE [address] [place], [place] [phone] Asha Dodge MD [address] [place], [place] [phone] PT1 Social History Tobacco Use Types Packs/Day [...] name or facility name: PCP Facility Address: [address] [place] [address] Escort needed: Y/N: No Do you have a wheelchair: Y/N: No If yes- Manual or electric: Visits: 1-2 times a month Blayne supervisor pole yard with Transportation informed pt to call and [...] documented as of this encounter Care Teams Lens Cleaner Relationship Specialty Start Date End Date Asha Dodge MD [address] [place] [address] PCP - General Family Medicine 12/29/22 Cyn Oviedo Examining Chair AssemblerBiofuels Plant Construction Worker 08/08/24 documented as of this encounter
--- OUTSIDE RECORDS SUMMARY | 2025-02-16 01:26 | XMS_ITS | Encounter Summary ---
Author Organization [employer] Address [address] [facility] [address] [address] [place] [address] Care Team Providers Care High [employer] Industrial Arts Teacher Name Role Phone Asha Dodge MD Primary Care Provider [phone] Reason for Visit * Reason Onset Date Comments PT-1 03/15/2024 Encounter Details Date Type Department Care Team ([facility] st Contact Info) Description 03/15/2024 Telephone [facility] MEDICINE 230 [place], [place] [phone] Asha Dodge MD 230 [place], [place] [phone] PT-1 Social History Tobacco Use Types Packs/Day [...] Y/N: Yes Provider name or facility name: [facility] [address] [place] [address] Escort needed: Y/N: No Do you have a wheelchair: Y/N: No Visits: (2) ( x monthly ) documented in this encounter Plan of Treatment Not on file documented as of this encounter Visit Diagnoses Not on filedocumented in this encounter Additional Health Concerns Assessment Noted Time PHQ-9 Depression Total Score: 3 06/03/19 24 3:02 PM EDT documented as of this encounter Care Teams [employer] Industrial Arts Teacher Relationship Specialty Start Date End Date Asha Dodge MD [address] [place] [address] PCP - General Family Medicine 12/29/22 Cyn Oviedo Well Servicing Rig OperatorLead Fire Protection Engineer 08/08/24 documented as of this encounter
--- OUTSIDE RECORDS SUMMARY | 2025-02-16 01:26 | XMS_ITS | Encounter Summary ---
Author Organization [employer] Address [address] [address] [address] [place] [address] Care Team Providers Care Manufacturing Lead Name Role Phone Asha Dodge MD Primary Care Provider [phone] Reason for Referral * Consultation (Routine) - Canceled Specialty Diagnoses / Procedures Referred By Contac t Referred To Contact Orthopaedic Surgery Diagnoses Left hip pain Asha Dodge MD [address] [place] [address] Phone: tel: fax: [facility], [facility] Medicine [facility] (Ambulatory Center) [address] [place] [address] Phone: tel: fax: Referral ID Status Reason Start Date Expiration Date Visits Requested Visits Authorized [id number] Canceled Specialty Services Required 11/09/2023 11/08/2024 1 0 Encounter Details Date Type Department Care Team (Late st Contact Info) Description 11/09/2023 Orders Only [facility] MEDICINE [address] [place] [phone] Asha Dodge MD [address] [place] [address] [phone] Left hip pain (Primary Dx) Social History [...] documented as of this encounter Care Teams Manufacturing Lead Relationship Specialty Start Date End Date Asha Dodge MD [address] [place] [address] PCP - General Family Medicine 12/29/22 Cyn Oviedo Loss Prevention ManagerField Automobile Adjuster 08/08/24 documented as of this encounter
--- OUTSIDE RECORDS SUMMARY | 2025-02-16 01:26 | XMS_ITS | Encounter Summary ---
Author Organization [employer] Address [address] [place] [address] Care Team Providers Care Geriatric Nurse Practitioner Name Role Phone Asha Dodge MD Primary Care Provider [phone] Reason for Visit * Reason Onset Date Comments Nurse Triage 08/08/2023 Encounter Details Date Type Department Care Team ([facility] st Contact Info) Description 08/08/2023 Telephone [facility] MEDICINE [address] [place], [place] [phone] Asha Dodge MD [address] [place], [place] [phone] Nurse Triage Social History Tobacco Use Types [...] documented as of this encounter Care Teams Geriatric Nurse Practitioner Relationship Specialty Start Date End Date Asha Dodge MD [address] [place] [address] PCP - General Family Medicine 12/29/22 Cyn Oviedo Online Marketing ManagerWrinkle Chaser 08/08/24 documented as of this encounter
--- OUTSIDE RECORDS SUMMARY | 2025-02-16 01:26 | XMS_ITS | Encounter Summary ---
Author Organization [employer] Address [address] [place] [address] Care Team Providers Care Inside Sales Coordinator Name Role Phone Asha Dodge MD Primary Care Provider [phone] Reason for Visit * Reason Onset Date Comments PT-1 09/05/2023 Encounter Details Date Type Department Care Team ([facility] st Contact Info) Description 09/05/2023 Telephone [facility] MEDICINE [address] [place], [place] [phone] Asha Dodge MD [address] [place], [place] [phone] PT-1 Social History Tobacco Use Types Packs/Day [...] Y/N: Yes Provider name or facility name: [facility] Facility Address: [address] [place] [address] Escort needed: Y/N: No Do you have [...] documented as of this encounter Care Teams Inside Sales Coordinator Relationship Specialty Start Date End Date Asha Dodge MD [address] [place] [address] PCP - General Family Medicine 12/29/22 Cyn Oviedo Card FeederCompressed Yeast Supervisor 08/08/24 documented as of this encounter
--- OUTSIDE RECORDS SUMMARY | 2025-02-16 01:26 | XMS_ITS | Clinical Summary ---
Author Organization [employer] Address [address] [facility] [address] [place] [address] Care Team Providers Care Kiln Feeder Name Role Phone Asha Dodge MD Primary Care Provider [phone] Allergies Active Allergy Reactions Criticality Noted Date Comments Wound Dressings 03/05/2022 Beta Adrenergic Blockers Palpitations Low 4 Side effect only/ dc'd Metronidazole Itching Low 03/05/2022 Fluorouracil Rash Low 04/08/2023 Wound Dressing Adhesive 06/18/2021 Other reaction(s): Unknown Medications polyethylene glycol, PEG, 3350 (Glycolax) 17 GM/SCOOP powderIndications :Constipation, unspecified constipation type Take 17 g by mouth Once per day. 510 g 1 4 Active melatonin tablet Take 2.5 mg by mouth at bedtime. Active sucralfate (Carafate) 1 GM/10ML suspension Take 10 mL by mouth 2 times daily. 5 Active cetirizine (ZyrTEC) 10 MG tablet TAKE 1 TO 2 TABLETS (10 TO 20 MG TOTAL) BY MOUTH DAILY FOR HIVES/ITCHING . 5 Active cholecalciferol (Vitamin D-3) 1.25 MG (14626 UT) capsule Take 1 capsule by mouth every 7 (seven) days. 5 Active esomeprazole (NexIUM) [address] capsule Take 1 capsule by mouth Once per day. 5 Active L-Methylfolate 15 MG tablet Take 1 tablet by mouth Once per day. 5 Active Ventolin HFA 108 (90 Base) MCG/ACT inhaler INHALE 2 PUFFS EVERY 6 HOURS IF NEEDED FOR WHEEZING OR SHORTNESS OF BREATH. 18 g 5 Active rosuvastatin (Crestor) 5 MG tablet Take 0.5 tablets (2.5 mg) by mouth Once per day. 45 tablet 3 5 01/12/20 26 Active clotrimazole (Lotrimin) 1 % cream Apply topically 2 times daily for 28 days. 30 g 5 5 02/07/20 25 Active Problems Problem Noted Date Diagnosed Date Tinea corporis 10/23/2024 Overview (10/23/2024): Two weeks of terbinafine in last two weeks of September 2024 Assessment & Plan (10/23/2024 8:55 PM EDT): Appears healing on exam 10/19/24, allow for continued observation No change in liver enzymes during treatment course, remained normal Other dysphagia 06/11/2024 Mild cognitive impairment 05/11/2024 Assessment & Plan (05/11/2024 6:40 AM EST): Ordered TSH, RPR, Vit B12/folate MRI brain is within last year, will not repeat After labs return to Neurology at [facility] Discussed that lack of exercise/movement impairs blood flow to the brain Consider low dose statin for CAD/microvessal disease prevention as well Encounter for pharmacogenetic testing 04/16/2024 Overview (06/29/2024): Pre-test visit: 02/24/2024 Post-test visit: 04/13/2024 CYP2B6 poor metabolizer (CMS/HCC) 04/12/2024 Overview (06/29/2024): CYP2B6 *6 / * 6 POOR METABOLIZER RELEVANT MEDS: EFAVIRENZ, SERTRALINE GO TO [facility] for genotype allele specific prescribing guidelines: https://ddrx.pharmgkb.org/results?genotypeSelection=%7B%[email or web address]%22%3A%5B%22*6%2 2%2C% 22*6%22%5D%7D GO TO [facility] SITE FOR GENERAL 2B6 GENE PRESCRIBING GUIDELINES : https://www.pharmgkb.org/gene/PA123/prescribingInfo Adverse effect of other drug s, medicaments and biological substances, sequela 02/22/2024 Family history of early CAD 02/22/2024 PTSD (post-traumatic stress disorder) 02/22/2024 OCD (obsessive compulsive disorder) 02/22/2024 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 Rash and nonspecific skin eruption 10/26/2023 Assessment & Plan (09/22/2024 12:02 PM EDT): Appears as nummular rash -07/2024 RPR neg ,HIV and hep C neg ,TSH 05/2024 wnl -06/2024 Chem wnl rifaximin known that can cause-Pruritus (9%), skin rash (5%) -per pt taking only for 3 weeks has left 2 more weeks as planned by GI --advised to disuss w his GI today in regards med , I rec to stop but pt states will call his specialist is looks like nummular ezcema but does not have the typical features for location ,given recurrence I am referring today to new account interviewer -may need bx -start clotrimazole/betamethasone x 3 to 4 weeks -cetirizine PRN -alarm signs and symptoms discussed -chem today ordered to monitor LFTS for pruritus -advised to avoid direct sun exposure -took pictures in pt phone so pt can show to new account interviewer Assessment & Plan (10/26/2023 11:21 AM EDT): Rash on chest has decreased in size and appearance since initiation of combination nystatin/triamcinolone therapy - advised use of medication if symptoms reoccur - will refer to Allergy for intradermal testing for allergy to household molds, prefer Dr Fields of [facility] Allergy 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 Overview [...] EDT): Gave phone number to referral to [facility] [place] [place] Pharmacogen[facility] Assessment & Plan (06/06/2023 7:40 AM EDT): Refer to [facility] [place] [facility] 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 Assessment & Plan (03/22/2024 11:48 AM EST): Continue annual monitoring of kidney function Family history of kidney disease in maternal gra ndmother 05/23/2023 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 Assessment & Plan (08/15/2024 8:17 AM EDT): Will discuss possibility with lab of transferrin saturation Assessment & Plan (07/20/2024 6:39 AM EDT): Continue followup with Dr Good regarding phlebotomy timing (ideally monthly per [facility] [place] consultation) as well as considering enrollment in clinical trial for hepcidin monitoring Ferritin is below 250 this month, goal is <100 Needs liver MRI for monitoring of iron burden Gave handouts about hemochromatosis so that he can expand his self-knowledge Assessment & Plan (03/22/2024 11:50 AM EST): Continue followup with Dr Good regarding phlebotomy timing (ideally monthly per [facility] [place] consultation) as well as considering enrollment in [...] there are concerns on his audiogram our gang supervisor pipe lines can touch base with one of our providers or me whoever is in clinic that day. Hyperlipidemia 03/28/2023 Assessment & Plan (08/15/2024 8:17 AM EDT): Open to trial of very small amount of statin, Crestor 2.5mg nightly Mucous retention cyst of maxillary sinus 024 03/25/2023 Overview (03/25/2023): Last Assessment & Plan: Is wondering if he can have a maxillary sinus retention cyst addressed. This was found on a head CT last summer done at [facility] [place]. Is wondering if draining or excising would help him. I discussed that for this condition, his best option is to see one of amazing rhinologists. I indicated that I would request this CT imaging being sent to our center (via Aleksandra Szymanski) to upload so that when he sees the it generalist, that would be available. Will also ask Aleksandra to schedule the visit in clinic after the imaging is here. Primary insomnia 03/22/2023 Assessment & Plan (03/22/2024 11:51 AM EST): Saw [facility] sleep med medical record consultant Awaiting sleep study Neither sleep doctor, nor I can order melatonin levels, I am not sure how this would assist or change treatment either Assessment & Plan (03/22/2023 12:51 PM EST): Its probably related to anxiety, exacerbated by new onset HTN? We discussed re fu with therapist [facility] For rx anxiety, sleep meds, specially [...] told him to fu with psychotherapist at [facility] for psychopharmacology evaluation. 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 Thyroid US was normal aside from a right sided nodule that was there for the past 2 years. He went to an child psychologist who said he was unsure of reason [...] will schedule appointments accordingly. PLAN --follow-up with [facility] Endo --Therapy session for neck pain -- Call or return to clinic prn if these symptoms worsen or fail to improve as anticipated. Resolved Problems Problem Noted Date Diagnosed Date Resolved Date Anxiety and depression 02/22/202403/22 Alport syndrome 02/22/2024 03/22/2024 Overview (03/22/2024): COL4A3 gene (c.1450G>A, p.[id number]) for Alport syndrome. Left facial numbness 11/02/2022 [...] he has had difficulties getting to [facility] to get labs, will check his labs. Abdominal pain 03/05/2022 03/17/2022 Assessment & Plan (03/05/2022 10:00 AM EST): Reports bloating and gas, feels left sided gas that radiates to his left shoulder, if we could have gas and diaphragmatic irritation, benign abd exam. He requested to be sent to [facility] to GI, referral placed Dizziness 02/09/2022 03/22/2024 Mood disorder 07/26/2018 01/30/2023 Encounters Date Type Department Care Team Description 01/21/2025 6:20 PM EST Office Visit [facility] [address] [phone] Peter Stern MD Right foot pain (Primary Dx) 01/21/2025 Orders Only GENERIC EXTERNAL DATA DEPARTMENT Provider, Generic External Data 01/18/2025 Patient Outreach [address] [address] Asha Dodge MD Care Coordination (CHW outreach for SDOH PT-1 and food needs-referral completed /) 01/18/[address] [address] Asha Dodge MD 01/11/2025 Orders Only [address] [address] Asha Dodge MD Tinea corporis (Primary Dx) 01/09/2025 Orders Only [address] [address] Asha Dodge MD Heel pain, bilateral (Primary Dx); Tinea corporis 01/07/[address] [address] Asha Dodge MD 01/04/2025 Patient Outreach [address] [address] Asha Dodge MD Care Coordination (CHW outreach for SDOH PT-1 and food needs-referral completed /) 01/04/2025 Telephone [facility] [address] [place] [address] Asha Dodge MD PT-1 12/17/2024 Orders Only [facility] [address] [place] [phone] Asha Dodge MD 12/17/2024 Telephone [facility] & PEDS [address] [place], [place] [phone] Asha Dodge MD 12/13/2024 Patient Outreach [facility] [address] [place] [phone] Asha Dodge MD Care Coordination (CHW outreach for SDOH PT-1 and food needs-referral completed /) 12/13/2024 Telephone [facility] [address] [place] [phone] Asha Dodge MD Pt-1 12/01/2024 Refill [facility] [address] [place] [address] [phone] Asha Dodge MD from Last 3 Months Immunizations Immunization Administration Dates Next Due HPV 9-Valent 11/17/2021 Hep A, Adult 08/13/2024 Influenza Injectable Quadriv alant Preservative Free IIV4 MDCK 12/24/2016 Influenza injectable quadriv alent IIV4 with preservative 03/05/2019 Influenza injectable quadrivalent preservative f ree 01/16/2021 Influenza, seasonal, injectable, preservative fr ee 11/30/2023 MMR 08/13/2024 Tdap 12/19/2022,06/14/2012 Social History Tobacco Use Types [...] Answer Date Recorded Patient Health Questionnaire-9 Score 4 07/20/2024 Patient Health Questionnaire-9 Score 4 07/20/2024 Last PHQ-9: Questionnaire Data Not on file 0 07/20/2024 Housing Stability Answer Date Recorded What is [...] things needed for daily living? No 03/16/2024 Intimate Partner Violence Answer Date R ecorded Within the last year, have y ou been afraid of your partner or ex-partner? 2 08/15/2024 Within the last year, have y ou been humiliated or emotionally abused in other ways by your partner or ex-partner? 2 Within the last year, have y ou been kicked, hit, slapped, or otherwise physically hurt by your partner or ex-partner? 2 08/15/2024 Within the last year, have y ou been raped or forced to have any kind of sexual activity by your partner or ex-partner? 2 08/15/2024 Utilities Answer Date Recorded In the past 12 months, has t he electric, gas, 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 threatened to shut off services in your home? No 06/03/2023 Depression Answer Date Recorded Patient Health Questionnaire-2 Score 1 07/20/2024 Internet Access Answer Date Recorded Internet Access [...] Sign Reading Time Taken Comments Blood Pressure 126/86 10/19/2024 11:38 AM EDT Pulse 96 01/21/2025 6:32 PM EST Temperature 36.7 C (98.1 F) 01/21/2025 6:32 PM EST Respiratory Rate 20 01/21/2025 6:32 PM EST Oxygen Saturation 98% 09/19/2024 11:21 AM EDT Inhaled Oxygen Concentration - - Weight 85.7 kg (189 lb) 01/21/2025 6:32 PM EST Height 180.3 cm (5' 11 ) 10/19/2024 11:38 AM EDT Body Mass Index 26.36 10/19/2024 11:38 AM EDT Plan of Treatment Health Maintenance Due Date Last Done Comments Hepatitis B Vaccines (1 of 3 - 19+ 3-dose series) 2004 Pneumococcal Vaccine: Pediatrics (0 to 5 Years) and At-Risk Patients (6 to 49) Years (1 of 2 - PCV) 2004 HPV Vaccines (2 - Male 3-dose series) 12/15/2021 11/17/2021 COVID-19 Vaccine (2024- season) 2024 11/13/2021, 03/16/2021, 07/15/2020, Additional history exists Influenza Vaccine (#1) 2024 , 01/16/2021, 03/05/2019, Additional history exists Hepatitis A Vaccines (2 of 2 - Risk 2-dose series) 02/12/2025 08/13/2024 SDOH Screening 03/16/2025 03/16/2024 Alcohol/Substance Use Screening 05/11/2025 05/11/2024 Family Planning (PISQ) 05/11/2025 05/11/2024 Depression Screening 07/20/2025 07/20/2024, 07/21/19 25 Disability Screening 09/19/2025 09/19/2024 Tobacco Screening 10/23/2025 10/23/2024 Lipid Panel 07/12/2029 07/12/2024, 03/08, 01/04/2023, Additional history exists DTaP/Tdap/Td Vaccines (3 - Td or Tdap) 12/19/2032 12/19/2022, 06/14/2012 Zoster Vaccines (1 of 2) 10/18/2035 RSV Patients and Patients Aged 60 years or older (1 - 1-dose 75+ series) 2060 HIV Screening Completed 07/12/2024, 07/20/2023 Hepatitis C Screening Completed 07/12/2024 , 07/20/2023, 01/20/2023 HIB Vaccines Aged Out No longer eligi [...] Procedure Name Priority Date/Time Associated Diagnosis Comments TRYPSIN, SERUM Routine 01/21/2025 4:28 PM EST VITAMIN B1 Routine 01/21/2025 4:28 PM EST VITAMIN B6 Routine 01/21/2025 4:28 PM EST VITAMIN B3 Routine 01/21/2025 4:28 PM EST VITAMIN B5 (PANTOTHENIC ACID) Routine 01/21/2025 4:28 PM EST VITAMIN E (TOCOPHEROL), ALPHA & GAMMA Routine 01/21/2025 4:28 PM EST VITAMIN A Routine 01/21/2025 4:28 PM EST VITAMIN B12/FOLATE, SERUM PANEL Routine 01/21/2025 4:28 PM EST VITAMIN D,25-OH,TOTAL,IA Routine 01/21/2025 4:28 PM EST FERRITIN Routine 01/21/2025 4:28 PM EST MAGNESIUM Routine 01/21/2025 4:28 PM EST COMPREHENSIVE METABOLIC PANEL Routine 01/21/2025 4:28 PM EST PANCREATIC ELASTASE, FECAL Routine 01/21/2025 3:31 PM EST FECAL FAT, QUALITATIVE Routine 3:31 PM EST CDIFF GENE PCR Routine 01/21/2025 3:31 PM EST GASTROINTESTINAL PANEL Routine 3:31 PM EST HEPATITIS C AB W/REFL TO HCV RNA, QN, PCR Routine 07/12/2024 Routine screening for STI (sexually transmitted infection) HIV 1/2 ANTIGEN/ANTIBODY, FOURTH GENERATION W/RFL Routine 07/12/2024 Routine screening for STI (sexually transmitted infection) LIPID PANEL, STANDARD Routine 07/12/2024 Elevated blood pressure reading Hyperlipidemia, unspecified hyperlipidemia type from Last 3 Months or Most Recently Relevant to Health Maintenance Results * Trypsin, Serum (01/21/2025 4:28 PM EST) Trypsin 675.3 [facility] Comment:INTERPRETIVE INFORMA TION: TrypsinReference Range: 180.5-885.3 ng/mLResults should be correlated with clinical presentation andother diagnostic data for the diagnosis of pancreatitis.Individuals with acute pancreatitis have significantlyelevatedtrypsin concentrations. Concentrations in those with chronicpancreatitis are variable and may be below, within, or abovethereference interval. Trypsin concentrations are notdiagnosticfor carcinoma of the pancreas. Results obtained withdifferentassay methods or kits cannot be used interchangeably.This test was developed and its performance characteristicsdetermined by [employer]. It has not been cleared orapproved by the U.S. Food and Drug Administration. This testwasperformed in a CLIA-certified laboratory and is intended forclinical purposes.[facility] , [facility] [address] [place] [address], [id number] Design Technology Teacher: Yon Orr MD, PhD 01/21/2025 4:28 PM EST 01/21/2025 4:28 PM EST Generic External Data Provider LAB BLOOD ORDERAB LES Final Result Performing Organization Address [facility] Co de Phone Number [facility] [address] [place] [phone] * Vitamin B5 (Pantothenic Acid) (01/21/2025 4:28 PM EST) Vitamin B5 (Pantothenic Acid) 59 <275 ng/mL [facility] Comment:This test was develo ped and its analyticalperformance characteristics have been determinedby [employer] [place], [place].It has not been cleared or approved by the FDA. Thisassay has been validated pursuant to the CLIAregulations and is used for clinical purposes.THIS TEST WAS PERFORMED AT:[employer] [id number] [place] [address]PCQOPGUSHARRON GOODEN MD,PHD 01/21/2025 4:28 PM EST 01/21/2025 4:28 PM EST Generic External Data Provider LAB BLOOD ORDERAB LES Final Result Performing Organization Address [facility] de Phone Number [facility] [address] [place] [phone] * Vitamin D, 25-Hydroxy, Total, Immunoassay (01/21/2025 4:28 PM EST) Vitamin D 25-OH Total 66.5 >30 ng/mL [facility] Comment: Health Based Reference Values*< 20 ng/mL Lqtdcqyeh82-20 ng/mL Insufficient> 30 ng/mL Sufficient*Jessika BRITT. N Engl J Med. 2007;357:266-280There is no well-established upper level of normal vitamin Dlevels. Some laboratories use 50 ng/mL as an upper limit ofnormal. However, toxicity is patient-dependent and may occurat any level. Careful correlation with the patient'spresentation is necessary and, if there is concern forvitamin D toxicity, treatment should be consideredirrespective of the serum level.Care must be taken in interpreting Vitamin D results fromdifferent laboratories and methodologies. Published datademonstrated that results from patients undergoinghemodialysis may show a negative bias when tested withvarious automated 25-OH vitamin D assays when compared toLC-MS/MS.When testing samples from patients whose predominant form ofVitamin D is Vitamin D2, such as patients receiving VitaminD2 supplementation, results that are subtherapeutic shouldbe confirmed with another method such as LC-MS/MS. 01/21/2025 4:28 PM EST 01/21/2025 4:28 PM EST Generic External Data Provider LAB BLOOD ORDERAB LES Final Result Performing Organization Address [facility]/ZIP Co de Phone Number [facility] [address] [place] [phone] * Vitamin B12 (Cobalamin) and Folate Panel, Serum (01/21/2025 4:28 PM EST) Vitamin B12 633 200 - 900 pg/mL [facility] Comment:NORMAL 200-900 PG/ML INDETERMINATE 160-199 PG/ML DEFICIENT < 160 PG/ML Folate 15.9 > or = 4.0 ng/mL [facility] Comment:Reference Values:> o r = 4.0 ng/mL< 4.0 ng/mL suggests folate deficiency Methotrexate, aminopterin and folinic acid(leucovorin) are chemotherapeutic agents whose molecularstructures are similar to folate; therefore, the Architectfolate assay cannot be used for patients using these drugs. 01/21/2025 4:28 PM EST 01/21/2025 4:28 PM EST Generic External Data Provider LAB BLOOD ORDERAB LES Final Result Performing Organization Address [facility]/ZIP Co de Phone Number [facility] [address] [place] [phone] * Vitamin A (01/21/2025 4:28 PM EST) Vitamin A (Retinol) 52 38 - 98 mcg/dL [facility] Comment:Vitamin supplementat ion within 24 hours prior toblood draw may affect the accuracy of the results.This test was developed and its analytical performancecharacteristics have been determined by [employer], [place]. It hasnot been cleared or approved by the U.S. Food and DrugAdministration. This assay has been validated pursuantto the CLIA regulations and is used for clinicalpurposes.THIS TEST WAS PERFORMED AT:[employer] [id number] [place] [address]CIYCMJUSHARRON GOODEN MD,PHD 01/21/2025 4:28 PM EST 01/21/2025 4:28 PM EST us Generic External Data Provider LAB BLOOD ORDERAB LES Final Result [facility] [address] [place] [phone] * Vitamin B3 (Niacin and Metabolite) (01/21/2025 4:28 PM EST) Pathologist [facility] Nicotinic Acid <20 see note ng/mL [facility] Comment:Due to the large dallas iability in the metabolism ofnicotinic acid, the dosing preparation used (immediate-release vs. extended release), and the mg doses usedthe serum concentrations may range from less than20 ng/mL to about 30,000 ng/mL.After oral administration of an immediate-releasetablet, peak plasma concentrations occur in 4 to 5hours. The plasma half-life of nicotinic acid is aboutone hour. In one study, fasting plasma concentrationswere reported to be less than 20 ng/mL. In anotherstudy, it was reported that the administration of asingle 1000 mg extended-release tablet resulted in meannicotinic acid concentrations of less than 50 ng/mL.This test was developed and its analyticalperformance characteristics have been determinedby [employer], [place].It has not been cleared or approved by the FDA. Thisassay has been validated pursuant to the CLIAregulations and is used for clinical purposes. Nicotinamide 22 see note ng/mL [facility] Comment:Nicotinamide is a me tabolite of nicotinic acid. Due tothe large variability in the metabolism of nicotinicacid, plasma concentrations of this metabolite arevariable. In one study, fasting plasma concentrationswere reported to be approximately 40 ng/mL. In anotherstudy it was reported that the administration of asingle 1000 mg of extended-release tablet of nicotinicacid resulted in a mean peak nicotinamide concentrationof 400 ng/mL between 5 and 10 hours post dose,decreasing to about 100 ng/mL by 16 hours post dose.This test was developed and its analyticalperformance characteristics have been determinedby [employer] [place], [place].It has not been cleared or approved by the FDA. Thisassay has been validated pursuant to the CLIAregulations and is used for clinical purposes.THIS TEST WAS PERFORMED AT:[employer]/[id number] [place] [address]QIWXWBNSHARRON GOODEN MD,PHD 01/21/2025 4:28 PM EST 01/21/2025 4:28 PM EST us Generic External Data Provider LAB BLOOD ORDERAB LES Final Result [facility] [address] [place] [phone] * Vitamin E (Tocopherol) (01/21/2025 4:28 PM EST) Pathologist [facility] Vitamin E, Alpha-Tocopherol 13.9 5.7 - 19.9 mg/L [facility] Comment:Levels of alpha-toco pherol <5 mg/L are consistentwith Vitamin E deficiency in adults. Vitamin E, Lvmr-Abnth-Skzebykiix 1.0 <=4.3 mg/L [facility] Comment:Vitamin supplementat ion within 24 hours prior toblood draw may affect the accuracy of the results.This test was developed and its analytical performancecharacteristics have been determined by [employer] [place], [place]. It hasnot been cleared or approved by the U.S. Food and DrugAdministration. This assay has been validated pursuantto the CLIA regulations and is used for clinicalpurposes.THIS TEST WAS PERFORMED AT:[employer] [id number] [place] [phone] GOODEN MD,PHD 01/21/2025 4:28 PM EST 01/21/2025 4:28 PM EST Generic External Data Provider LAB BLOOD ORDERAB LES Final Result Performing Organization Address [facility] de Phone Number [facility] [address] [place] [address] [phone] * Vitamin B1 (01/21/2025 4:28 PM EST) [facility] Vitamin B1 30 8 - 30 nmol/L [facility] Comment:Vitamin supplementat ion within 24 hours prior toblood draw may affect the accuracy of the results.This test was developed and its analytical performancecharacteristics have been determined by [employer] [place], [place]. It hasnot been cleared or approved by the U.S. Food and DrugAdministration. This assay has been validated pursuantto the CLIA regulations and is used for clinicalpurposes.THIS TEST WAS PERFORMED AT:[employer] [id number] [place] [address]HPZNJGQSHARRON GOODEN MD,PHD 01/21/2025 4:28 PM EST 01/21/2025 4:28 PM EST Generic External Data Provider LAB BLOOD ORDERAB LES Final Result Performing Organization Address [facility] Co de Phone Number [facility] [address] [place] [phone] * (ABNORMAL) Vitamin B6, Plasma (01/21/2025 4:28 PM EST) [facility] Vitamin B6 34.5(A) 2.1 - 21.7 ng/mL [facility] Comment:Vitamin supplementat ion within 24 hours prior toblood draw may affect the accuracy of the results.This test was developed and its analytical performancecharacteristics have been determined by [employer] [place], [place]. It hasnot been cleared or approved by the U.S. Food and DrugAdministration. This assay has been validated pursuantto the CLIA regulations and is used for clinicalpurposes.THIS TEST WAS PERFORMED AT:[employer]/[id number] [place] [address]YCJSNLJSAHRRON GOODEN MD,PHD 01/21/2025 4:28 PM EST 01/21/2025 4:28 PM EST Generic External Data Provider LAB BLOOD ORDERAB LES Final Result Performing Organization Address [facility]/ZIP Co de Phone Number [facility] [address] [place] [address] [phone] * Magnesium (01/21/2025 4:28 PM EST) [facility] Magnesium 2.1 1.6 - 2.6 mg/dL [facility] 01/21/2025 4:28 PM EST 01/21/2025 4:28 PM EST Generic External Data Provider LAB BLOOD ORDERAB LES Final Result Performing Organization Address [facility] Co de Phone Number [facility] [address] [place] [phone] * (ABNORMAL) Ferritin (01/21/2025 4:28 PM EST) [facility] Ferritin 278(H) 20 - 250 ng/mL [facility] 01/21/2025 4:28 PM EST 01/21/2025 4:28 PM EST Generic External Data Provider LAB BLOOD ORDERAB LES Final Result Performing Organization Address City/[facility]/ZIP Co de Phone Number [facility] [address] [place] [address] [phone] * (ABNORMAL) Comprehensive Metabolic Panel (01/21/2025 4:28 PM EST) Sodium 141 135 - 145 mmol/L [facility] Potassium 3.7 3.3 - 5.1 mmol/L [facility] Chloride 107 96 - 108 mmol/L [facility] Carbon Dioxide 25 22 - 29 mmol/L [facility] Anion Gap 13 12 - 20 [facility] Urea Nitrogen (BUN) 15 9 - 16 mg/dL [facility] Creatinine, Serum 1.13 0.5 - 1.4 mg/dL [facility] Estimated Glomerular Filt Rate >60 [facility] Comment:Chronic Kidney Disea se: Estimated GFR < 60 mL/min/1.95t5Eihieu Kidney Disease: Estimated GFR < 15 mL/min/1.73m2 Glucose 134(H) 60 - 115 mg/dL [facility] Calcium 9.7 8.4 - 10.2 mg/dL [facility] Bilirubin, Total 0.5 0.0 - 1.0 mg/dL [facility] Aspartate Amino Transferase 26 5 - 37 U/L [facility] Alanine Aminotransferase 37 0 - 40 U/L [facility] Total Protein 7.2 6.5 - 8.0 g/dL [facility] Albumin Level 4.5 3.5 - 5.0 g/dL [facility] Alkaline Phosphatase 90 39 - 117 U/L [facility] 01/21/2025 4:28 PM EST 01/21/2025 4:28 PM EST Generic External Data Provider LAB BLOOD ORDERAB LES Final Result Performing Organization Address City/[facility]/ZIP Co de Phone Number [facility] [address] [place] [address] [phone] * CDiff Gene PCR (01/21/2025 3:31 PM EST) CDiff Gene PCR TNP Negative [facility] Comment:Formed specimen rece ived. 01/21/2025 3:31 PM EST 01/21/2025 4:24 PM EST us Generic External Data Provider LAB BODY FLUIDS A ND STOOLS ORDERABLES Final Result [facility] [address] [place] [address] [phone] * Gastrointestinal panel (01/21/2025 3:31 PM EST) Campylobacter Not Detected Not Detect. [facility] Plesiomonas shigelloides Not Detected Not Detect. [facility] Salmonella Not Detected Not Detect. [facility] Vibrio Not Detected Not Detect. [facility] Vibrio cholerae Not Detected Not Detect. [facility] YERSINIA ENTEROCOLITICA Not Detected Not Detect. [facility] Enteroaggregative E. coli (EAEC) Not Detected Not Detect. [facility] Enteropathogenic E. coli (EPEC) Not Detected Not Detect. [facility] Enterotoxigenic E. coli (ETEC) lt/st Not Detected Not Detect. [facility] Shiga-like toxin-producing E. coli (STEC) stx1/stx2 Not Detected Not Detect. [facility] E coli O157 Not applicable Not Detect. [facility] Comment:E. coli containing t he O157 antigen are a subset ofShiga-like toxin- producing E. coli (STEC). Shigella/Enteroinvasive E. coli (EIEC) Not Detected Not Detect. [facility] Cryptosporidium Not Detected Not Detect. [facility] Cyclospora cayetanensis Not Detected Not Detect. [facility] Entamoeba histolytica Not Detected Not Detect. [facility] Giardia lamblia Not Detected Not Detect. [facility] Adenovirus F 40/41 Not Detected Not Detect. [facility] Astrovirus Not Detected Not Detect. [facility] Norovirus GI/GII Not Detected Not Detect. [facility] Rotavirus A Not Detected Not Detect. [facility] Sapovirus Not Detected Not Detect. [facility] Comment: All results must be correlated with clinical findings.Negative results do not exclude the possibility ofgastrointestinal infection and should not be used as thesole basis for diagnosis, treatment, or other managementdecisions. Virus, bacteria, and parasite nucleic acid maypersist in vivo independently of organism viability.Additionally, some organisms may be carriedasymptomatically.Detection of organism targets does not imply that thecorresponding organisms are infectious or are the causativeagents for clinical symptoms. There is a risk of falsenegative values due to the presence of sequence variants inthe gene targets of the assay, amplification inhibitors inspecimens, or inadequate numbers of organisms foramplification.The identification of several diarrheagenic E. colipathotypes has historically relied upon phenotypiccharacteristics. This panel targets genetic determinantscharacteristic of most pathogenic strains, but may notdetect all strains having phenotypic characteristics of apathotype.The performance of this test has not been established formonitoring treatment of infection with any of the panelorganisms.This assay is performed by Multiplexed PCR, utilizing [employer]. 01/21/2025 3:31 PM EST 01/21/2025 4:24 PM EST Generic External Data Provider LAB MICROBIOLOGY - GENERAL ORDERABLES Final Result [facility] [address] [place] [phone] * Pancreatic Elastase, Fecal (01/21/2025 3:31 PM EST) Pancreatic Elastase 1 >800 >200 mcg/g [facility] Comment:E-1 mcg/g feces Inte rpretation <100 Severe exocrine pancreatic insufficiency 100-200 Mild to moderate exocrine pancreatic insufficiency >200 NormalTHIS TEST WAS PERFORMED AT:[employer] [id number] [place] [address]LUPNDAMILCAR ADAMS MD,PHD,KATHE 01/21/2025 3:31 PM EST 01/21/2025 4:24 PM EST Generic External Data Provider LAB BODY FLUIDS A ND STOOLS ORDERABLES Final Result Performing Organization Address [facility] Co de Phone Number [facility] [address] [place] [phone] * Fecal Fat, Qualitative (01/21/2025 3:31 PM EST) Fecal Fat, Qualitative Normal Normal [facility] Comment:THIS TEST WAS PERFOR MED AT:[employer]/[id number] [place] [address]OSMJTAJSHARRON GOODEN MD,PHD 01/21/2025 3:31 PM EST 01/21/2025 4:24 PM EST Generic External Data Provider LAB BLOOD ORDERAB LES Final Result Performing Organization Address [facility] Co de Phone Number [facility] [address] [place] [phone] * Hepatitis C Antibody with Reflex to HCV, RNA, Quantitative, Real-Time PCR (07/12/2024) Blood Venous blood specimen / Unknown us Asha Dodge MD LAB BLOOD ORDERABLES Final Res ult Performing Organization Address [facility] Co de Phone Number [facility] [address] [place] [phone] * HIV-1/2 Antigen and Antibodies, Fourth Generation, with Reflexes (07/12/2024) Blood Venous blood specimen / Unknown Asha Dodge MD LAB BLOOD ORDERABLES Final Res ult Performing Organization Address [facility] Co de Phone Number [facility] [address] [place] [phone] * Lipid Panel, Standard (07/12/2024) Blood Venous blood specimen / Unknown us Asha Dodge MD LAB BLOOD ORDERABLES Final Res ult Performing Organization Address [facility] Co de Phone Number [facility] [address] [place] [address] [phone] from Last 3 Months or Most Recently Relevant to Health Maintenance [facility] Care Teams Kiln Feeder Relationship Specialty Start Date End Date Asha Dodge MD [address] [place] [address] PCP - General Family Medicine 12/29/22 Cyn Oviedo Licensing OfficerSkin Therapist 6/4/25
--- OUTSIDE RECORDS SUMMARY | 2025-02-16 01:26 | XMS_ITS | Encounter Summary ---
Author Organization [employer] Address [address] [place] [address] Care Team Providers Care Stem Assembler Name Role Phone Asha Dodge MD Primary Care Provider [phone] Encounter Details Date Type Department Care Team (Late st Contact Info) Description 08/31/2023 Orders Only [facility] [address] [place], [place] [phone] Asha Dodge MD [address] [place], [place] [phone] Hemochromatosis associated with mutation in HFE gene [...] EDT) Iron 271(H) 45 - 160 mcg/dL [facility] Total Iron Binding Capacity 296 228 - 428 mcg/dL [facility] Percent Iron Saturation 92(H) 15 - 50 % [facility] Unsaturated Iron Binding <25 ug/dL [facility] Blood Venous blood specimen / Unknown 09/20/2023 3:49 PM EDT 09/20/2023 5:20 PM EDT us Asha Dodge MD LAB BLOOD ORDERABLES Final Res ult [facility] [address] [place] [phone] documented in this encounter Visit Diagnoses Diagnosis 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
--- OUTSIDE RECORDS SUMMARY | 2025-02-16 01:27 | XMS_ITS | Encounter Summary ---
Author Organization [employer] Address [address] [place] [address] Care Team Providers Care Resaw Carriage Operator Name Role Phone Asha Dodge MD Primary Care Provider [phone] Reason for Visit * Reason Onset Date Comments PT1 04/19/2024 Encounter Details Date Type Department Care Team (Late st Contact Info) Description 04/19/2024 Telephone [facility] [address] [place], [place] [phone] Asha Dodge MD [address] [place], [place] [phone] PT1 Social History Tobacco Use Types Packs/Day [...] Y/N: Yes Provider name or facility name: [facility] Facility Address: [address] [place] [address] Escort needed: Y/N: No Do you have [...] documented as of this encounter Care Teams Resaw Carriage Operator Relationship Specialty Start Date End Date Asha Dodge MD [address] [place] [address] PCP - General Family Medicine 12/29/22 Cyn Oviedo Director Of Clinical TrialsAdministrative Receptionist 08/08/24 documented as of this encounter
--- OUTSIDE RECORDS SUMMARY | 2025-02-16 01:27 | XMS_ITS | Encounter Summary ---
Author Organization [employer] Address [address] [place] [address] Care Team Providers Care Cracking Still Operator Name Role Phone Asha Dodge MD Primary Care Provider [phone] Encounter Details Date Type Department Care Team (Late st Contact Info) Description 12/17/[address] [facility] MED[facility]INE [address] [place], [place] [phone] Asha Dodge MD [address] [place] [address] Social History Tobacco Use Types Packs/Day Years [...] Assessment Noted Time PHQ-9 Depression Total Score: 4 07/21/19 25 6:33 AM EDT documented as of this encounter Care Teams Cracking Still Operator Relationship Specialty Start Date End Date Asha Dodge MD [address] [place] [address] PCP - General Family Medicine 12/29/22 Cyn Oviedo Financial Administrative AssistantMandarin Teacher 08/08/24 documented as of this encounter
--- OUTSIDE RECORDS SUMMARY | 2025-02-16 01:27 | XMS_ITS | Clinical Summary ---
Author Organization [facility] Address [address] [place] [address] Care Team Providers Care Banquet Steward Name Role Phone Asha Dodge Primary Care Provider [phone] Allergies Active Allergy Reactions Criticality Noted Date [...] Reports he has had difficulties getting to [facility] to get labs, will check his [...] He is getting care for hemochromatosis at [facility]. 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 - He will continue care at [facility]. If any further questions come up, [...] Description 03/06/2025 1:15 PM EST Office Visit [facility] [address] [facility] [address] [place] [address] Kentrell Bell MD [address] [facility] [address] [place], [place] [phone] Scheduled Procedures Name Priority Associated Diagnoses Date/Ti [...] 01/16/2021, 03/05/2019, Additional history exists COVID-19 Vaccine (5 - 2024-2 6 season) 2024 11/13/2021, 03/16/2021, 07/15/2020, Additional history exists DTaP,Tdap,and Td Vaccines (3 - Td or Tdap) 12/19/2032 12/19/2022, 06/14/2012 HIV Screening Completed 07/20/2023, 07/05, 01/20/2023 Hepatitis C Screening Completed 07/20/2023, 023 Diabetes Screening Discontinued 02/27/2024, 1 04/26/2023, 12/07/2023, Additional history exists Procedures * Due to [place] state law, this organization might not be sharing negative HIV tests. Procedure Name Priority Date/Time Associated Diagnosis Comments COMPREHENSIVE METABOLIC PANEL Routine 08/04/2023 8:52 AM EDT Elevated lipase from Last 3 Months or Most Recently Relevant to Health Maintenance Results * Due to [place] state law, this organization might not be sharing negative HIV tests. * Comprehensive metabolic panel (08/04/2023 8:52 AM EDT) NA 142 135 - 145 mmol/L 08/04/2023 9:51 AM EDT [facility] K 3.7 3.5 - 5.3 mmol/L 08/04/2023 9:51 AM EDT [facility] Cl 104 97 - 110 mmol/L 08/04/2023 9:51 AM EDT [facility] CO2 31 24 - 32 mmol/L 08/04/2023 9:51 AM EDT [facility] Anion Gap 7 5 - 15 08/04/2023 9:51 AM EDT [facility] Glucose 84 70 - 99 mg/dL 08/04/2023 9:51 AM EDT [facility] Creatinine 1.08 0.60 - 1.30 mg/dL 08/04/2023 9:51 AM EDT [facility] Calcium 9.9 8.7 - 10.7 mg/dL 08/04/2023 9:51 AM EDT [facility] Total Protein 7.6 6.0 - 8.0 g/dL 08/04/2023 9:51 AM EDT [facility] Albumin 4.7 3.5 - 4.8 g/dL 08/04/2023 9:51 AM EDT [facility] Bilirubin, Total 0.7 0.3 - 1.2 mg/dL 08/04/2023 9:51 AM EDT [facility] Alkaline Phosphatase 85 30 - 115 U/L 08/04/2023 9:51 AM EDT [facility] AST 13 10 - 40 U/L 08/04/2023 9:51 AM EDT [facility] ALT 13 10 - 40 U/L 08/04/2023 9:51 AM EDT [facility] BUN 19 7 - 23 mg/dL 08/04/2023 9:51 AM EDT [facility] eGFR >90 >=60 mL/min/1. 73m2 08/04/2023 9:51 AM EDT [facility] Comment:The estimated glomer ular [...] Steele MD LAB BLOOD ORDERABLES Final Result [facility] [address] [place] [address], from Last 3 Months or Most Recently Relevant to Health Maintenance Insurance [employer] Care Teams Banquet Steward Relationship Specialty Start Date End Date Asha Dodge [address] [place] [address] PCP - General 07/15/23
--- OUTSIDE RECORDS SUMMARY | 2025-02-16 01:27 | XMS_ITS | Encounter Summary ---
Author Organization [employer] Address [address] [place] [address] Care Team Providers Care Phlebotomy Instructor Name Role Phone Asha Dodge MD Primary Care Provider [phone] Encounter Details Date Type Department Care Team (Late st Contact Info) Description 01/18/2025 Telephone [facility] [address] [place], [place] [phone] Asha Dodge MD [address] [place], [place] [phone] Social History Tobacco Use Types Packs/Day Years [...] encounter Miscellaneous Notes * Telephone Encounter - Sherry Nieves - 01/18/2025 2:19 PM EST Patient calling requesting PT1 Home Address verified: Y/N: Yes Provider name or facility name: [facility] dr[facility] Barker Facility Address: [address] [place] [address] Escort needed: Y/N: No Do you have a wheelchair: Y/N: No If yes- Manual or electric: / Visits:2 per month Appointment will be 01/28 9:00 am documented in this encounter Plan of Treatment Not on file documented as of this encounter Visit Diagnoses Not on filedocumented in this encounter Additional Health Concerns Assessment Noted Time PHQ-9 Depression Total Score: 4 07/21/19 25 6:33 AM EDT documented as of this encounter Care Teams Phlebotomy Instructor Relationship Specialty Start Date End Date Asha Dodge MD [address] [place] [address] PCP - General Family Medicine 12/29/22 Cyn Oviedo Hepatology PhysicianSupervisor Residential 08/08/24 documented as of this encounter
--- OUTSIDE RECORDS SUMMARY | 2025-02-16 01:27 | XMS_ITS | Encounter Summary ---
Author Organization [employer] Address [address] [place] [address] Care Team Providers Care Resource Efficiency Manager Name Role Phone Asah Dodge MD Primary Care Provider [phone] Reason for Visit * Reason Onset Date Comments PT1 05/10/2024 Encounter Details Date Type Department Care Team ([facility] st Contact Info) Description 05/10/2024 Telephone [facility] [address] [place], [place] [phone] Asha Dodge MD [address] [place], [place] [phone] PT1 Social History Tobacco Use Types Packs/Day [...] Y/N: Yes Provider name or facility name: [facility] Facility Address: [address] [place] [address] Escort needed: Y/N: No Do you have [...] documented as of this encounter Care Teams Resource Efficiency Manager Relationship Specialty Start Date End Date Asha Dodge MD [address] [place] [address] PCP - General Family Medicine 12/29/22 Cyn Oviedo Grinder [employer] Systems Analyst 08/08/24 documented as of this encounter
--- OUTSIDE RECORDS SUMMARY | 2025-02-16 01:27 | XMS_ITS | Encounter Summary ---
Author Organization [facility] Address [address] [place] [address] Care Team Providers Care Abnormal Psychology Teacher Name Role Phone Asha Dodge Primary Care Provider [phone] Encounter Details Date Type Department Care Team (Late Contact Info) Description 03/21/2023 Orders Only [facility] Interventional Radiology [address] [place] [address] Doug Hassan MD [address] [place], [place] [phone] Social History Tobacco Use Types Packs/Day Years [...] Description 03/06/2025 1:15 PM EST Office Visit [facility] [address] [address] [facility] [address] [place] [address] Kentrell Bell MD [address] [facility] [address] [place] [address] Scheduled Procedures Name Priority Associated Diagnoses Date/Ti me UPPER ENDOSCOPY WITH ENDOSCO PIC ULTRASOUND WITH POSSIBLE MODERATE SEDATION Elevated lipase documented as of this encounter Visit Diagnoses Not on filedocumented in this encounter Care Teams Abnormal Psychology Teacher Relationship Specialty Start Date End Date Asha Dodge [address] [place] [address] PCP - General 07/15/23 documented as of this encounter
--- OUTSIDE RECORDS SUMMARY | 2025-02-16 01:27 | XMS_ITS | Encounter Summary ---
Author Organization [employer] Address [address] [facility] [address] 7t [place] [address] Care Team Providers Care Weaver Apprentice Name Role Phone Asha Dodge MD Primary Care Provider [phone] Reason for Visit * Reason Onset Date Comments PT1 05/31/2023 Encounter Details Date Type Department Care Team ([facility] st Contact Info) Description 05/31/2023 Telephone [facility] MEDICINE 230 [place], [place] [phone] Asha Dodge MD 230 [place], [place] [phone] PT1 Social History Tobacco Use Types Packs/Day [...] AM EDT documented as of this encounter Functional Status * Over the past 2 weeks, how often have you been bothered by any of the following problems? Question Answer Date of Assessment Author Patient Health Questionnaire -2 Score 0 06/03/2023 3:02 PM EDT Jonelle Menchaca MA * How difficult have these problems made it for you to do your work, take care of things at home, or get along with other people? Answer Date of Assessment Author Not difficult at all 06/03/2023 3:02 PM EDT Michelle Thompson MA * Over the past 2 weeks, how often have you been bothered by any of the following problems? Question Answer Date of Assessment Author Little interest or pleasure in doing things Not at all 06/03/2023 3:02 PM DAYTONT Shayna Menchaca MA Feeling down, depressed, or hopeless Not at all 06/03/2023 3:02 PM DAYTONT Jonelle Menchaca MA Trouble falling or staying asleep, or sleeping too much Nearly every day 06/03/2023 3:02 PM DAYTONT Jonelle Menchaca MA Feeling tired or having little energy Not at all 06/03/2023 3:02 PM DAYTONT Jonelle Menchaca MA Poor appetite or overeating Not at all 06/03/2023 3:02 PM DAYTONT Jonelle Menchaca MA Feeling bad about yourself - or that you are a failure or have let yourself or your family down Not at all 06/03/2023 3:02 PM DAYTONT Jonelle Menchaca MA Trouble concentrating on things, such as reading the newspaper or watching television Not at all 06/03/2023 3:02 PM EDT Jonelle Menchaca MA Moving or speaking so slowly that other people could have noticed? Or the opposite - being so fidgety or restless that you have been moving around a lot more than usual. Not at all 06/03/2023 3:02 PM EDT Jonelle Menchaca MA Thoughts that you would be better off or hurting yourself in some way Not at all 06/03/2023 3:02 PM EDT Deep Menchaca MA Patient Health Questionnaire-9 Score 3 06/03/2023 3:02 PM DAYTONT Jeniffer Menchaca MA documented as of this encounter Miscellaneous Notes [...] hours - You become worse Arben Haro Howe Medicine Clinical Support (supporting Silva Drake RN)25 minutes ago (9:49 AM) AC Still the same as they were in the hospital. The sharp pain in the epigastric region from time to time. She's seeing me in a week and a half; what can I do at home to reduce my numbers? MANPREET Ortega27 minutes ago (9:47 AM) MS Tin Theodore, Luis are scheduled for a [...] / denial letter via mail. PT-1 Request [id number] Pending . [facility] [address] [facility] [address] * Telephone Encounter - Toya Keyes - 05/31/2023 2:42 PM EDT Patient calling requesting PT1 Home Address verified: Y/N: Yes Provider name or facility name: [facility] [address] [facility] Escort needed: Y/N: No Do you have a wheelchair: Y/N: No If yes- Manual or electric: no Visits: 12 per year documented in this encounter Plan of Treatment Not on file documented as of this encounter Visit Diagnoses Not on filedocumented in this encounter Care Teams Weaver Apprentice Relationship Specialty Start Date End Date Asha Dodge MD [address] [place] [address] PCP - General Family Medicine 12/29/22 Cyn Oviedo Security AuditorCustomer Support Assistant 08/08/24 documented as of this encounter
--- OUTSIDE RECORDS SUMMARY | 2025-02-16 01:27 | XMS_ITS | Clinical Summary ---
Author Organization Located Within [facility] Address [address] [address] Phone Care Team Providers Care German Professor Name Role Phone Asha Dodge MD Primary Care Provider + Peter Lerner MD, MS Unavailable [phone] Dallin Andrews MD Unavailable [phone] Allergies Active Allergy Reactions Criticality Noted Date Comments Metronidazole Anxiety,Arrhythmia,D iar serge,Feeling Irritable,Hepatotoxicit y,Itching,Lightheadedne ss,Other (See Comments),Tremor High 03/05/2022 Other Reaction(s): Neuroleptic Malignant Syndrome Neurological issues Neurological symptoms Medications polyethylene glycol (GAVILAX) 17 gram/dose powder Take 17 g by mouth. 07/06/2023 Active melatonin 1 mg Tab Take 2.5 mg by mouth nightly at bedtime. 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 I suggested to my bariatric coordinator, who's through [facility](Dr eduin gaines), today, maybe we look into trikafta, or one of its many variation CF [id number] heterozygote document placed in media January 22, 2025 Encounter for pharmacogenetic testing 04/16/2024 Overview (04/16/2024): Pre-test visit: 02/24/2024 Post-test visit: 04/13/2024 CYP2B6 poor metabolizer 04/12/2024 Overview (04/12/2024): CYP2B6 *6 / * 6 POOR METABOLIZER RELEVANT MEDS: EFAVIRENZ, SERTRALINE GO TO [employer] DDRx for genotype allele specific prescribing guidelines: https://ddrx.[employer].org/results?genotypeSelection=%7B%62EMV5U7%22%3A%5B%22*6%2 2%2C% 22*6%22%5D%7D GO TO [facility] SITE FOR GENERAL 2B6 GENE PRESCRIBING GUIDELINES : https://www.[employer].org/gene/PA123/prescribingInfo Anxiety and depression 02/22/2024 PTSD (post-traumatic stress disorder) 02/22/2024 OCD (obsessive compulsive disorder) 02/22/2024 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 Hereditary hemochromatosis 02/22/2024 Assessment [...] the 2018 equations. The ASCVD Risk score (Wily DK, et al., 2019) failed to calculate for the following reasons: The 2019 ASCVD risk score is only valid for ages 40 to 79 Please consider using the newly developed race-neutral PREVENT score to determine CVD risk: https://professional.heart.org/en/yjmcsfuhkp-ijm-viklesdujt/prevent-calculator Family history of early CAD 02/22/2024 Encounters Date Type Department Care Team Description 01/23/2025 Orders Only [facility] [address] [facility]2 [place] [address] Fredy Miller PA-C 01/07/[address] [address] Fredy Miller PA-C 01/07/2025 Orders Only [address] [address] Fredy Miller PA-C 12/21/2024 Orders Only [facility] [address] [place] [address] ProviderMorena MD 12/20/2024 3:00 PM EDT Office Visit [address] [address] Angelo Bryan MD, MPH Hereditary hemochromatosis (Primary Dx) 12/20/2024 Orders Only [facility] [address] [place] [address] Provider, MD Morena from Last 3 Months Social History Tobacco [...] Care Team (Late st Contact Info) Description 02/18/2025 9:30 AM EST Office Visit [facility] Genetics 15 [place] [address] Peter Leary MD, MPH [address] [place] [address] [email or web address] 06/20/2025 2:00 PM EDT Office Visit [facility] Specialties [address] [facility]2 [place] [address] Angelo Bryan MD, MPH [address] [facility] [place] [address] [email or web address] Maintenance Due Date Last Done Comments [...] from Last 3 Months Insurance [employer] [place] [address] [place] [address] C3 ACO C3 ACO C3 ACO [facility] C3 ACO Care Teams German Professor Relationship Specialty Start Date End Date Asha Dodge MD 230 [place] [address] PCP - General Family Medicine 06/09/23 Peter Lerner MD, MS [address] [place] [address], 3rd [place] [address] [email or web address] Primary Care Physician Internal Medicine 02/22/24 Dallin Andrews MD [address] [place] [address] [place] [address] [email or web address] 12/20/24 Additional Source Comments The information contained in this document represents components of the legal health record. It is not the complete legal health record.Located Within [facility]
--- OUTSIDE RECORDS SUMMARY | 2025-02-16 01:27 | XMS_ITS | Encounter Summary ---
Author Organization [employer] Address [address] [facility] [address] 7t [place] [address] Care Team Providers Care Science Job Titles Name Role Phone Asha Dodge MD Primary Care Provider [phone] Reason for Visit * Reason Onset Date Comments PT1 09/06/2023 Encounter Details Date Type Department Care Team ([facility] st Contact Info) Description 09/06/2023 Telephone [facility] MEDICINE 230 [place], [place] [phone] Asha Dodge MD 230 [place], [place] [phone] PT1 Social History Tobacco Use Types Packs/Day [...] Y/N: Yes Provider name or facility name: [facility] Facility Address: [address] [place] [address] Escort needed: Y/N: No Do you have [...] documented as of this encounter Care Teams Science Job Titles Relationship Specialty Start Date End Date Asha Dodge MD [address] [place] [address] PCP - General Family Medicine 12/29/22 [address] EngineerCommercial Shrimping Captain 08/08/24 documented as of this encounter
--- OUTSIDE RECORDS SUMMARY | 2025-02-16 01:27 | XMS_ITS | Encounter Summary ---
Author Organization [employer] Address [address] [facility] [address] 7t [place] [address] Care Team Providers Care Director Of Quality Improvement Name Role Phone Asha Dodge MD Primary Care Provider [phone] Encounter Details Date Type Department Care Team (Late st Contact Info) Description 03/21/2023 Orders Only [facility] 230 [place], [place] [phone] Doug Quintana MD 230 [place], [place] [phone] Social History Tobacco Use Types Packs/Day Years [...] in this encounter Care Teams Director Of Quality Improvement Relationship Specialty Start Date End Date Asha Dodge MD 230 [place], [place] [phone] PCP - General Family Medicine 12/29/22 Cyn Oviedo Steel Construction WorkerPlumbing Assembler Installer 08/08/24 documented as of this encounter
--- OUTSIDE RECORDS SUMMARY | 2025-02-16 01:27 | XMS_ITS | Encounter Summary ---
Author Organization [employer] Address [address] [facility] [address] 7t [place] [address] Care Team Providers Care Light Bulb Replacer Name Role Phone Asha Dodge MD Primary Care Provider [phone] Encounter Details Date Type Department Care Team (Late st Contact Info) Description 01/07/2025 Telephone [facility] MEDICINE 230 [place], [place] [phone] Asha Dodge MD 230 [place], [place] [phone] Social History Tobacco Use Types Packs/Day Years [...] documented as of this encounter Care Teams Light Bulb Replacer Relationship Specialty Start Date End Date Asha Dodge MD [address] [place] [address] PCP - General Family Medicine 12/29/22 Cyn Oviedo Occupational Therapist Per DiemPainting Technician 08/08/24 documented as of this encounter
--- OUTSIDE RECORDS SUMMARY | 2025-02-16 01:27 | XMS_ITS | Encounter Summary ---
Author Organization [facility] Address [address] [place] [address] Care Team Providers Care Home Maker Name Role Phone Asha Dodge Primary Care Provider Encounter Details Date Type Department Care Team (Late Contact Info) Description 07/17/2021 Orders Only [facility] [address] [place] [address] Brendan Kaylie [address] [place] [address] Social History Tobacco Use Types Packs/Day Years [...] 03/06/2025 1:15 PM EST Office Visit [facility] [address] [place] [facility] 85 [facility] [address] [place] [address] Kentrell Bell MD 85 [facility] [address] [place] [address] Scheduled Procedures Name Priority Associated Diagnoses Date/Ti me UPPER ENDOSCOPY WITH ENDOSCO PIC ULTRASOUND WITH POSSIBLE MODERATE SEDATION Elevated lipase documented as of this encounter Procedures * Due to [place] state law, this organization might not be sharing negative HIV tests. Procedure Name Priority Date/Time Associated Diagnosis Comments LAB - SCANNED Routine 04/08/2021 documented in this encounter Results * Due to [place] state law, this organization might not be sharing negative HIV tests. * LAB - SCANNED (04/08/2021) Kaylie Cardona LAB HISTORICAL RESULTS Final Res ult documented in this encounter Visit Diagnoses Not on filedocumented in this encounter Care Teams Home Maker Relationship Specialty Start Date End Date Asha Dodge [address] [place] [address] PCP - General 07/15/23 documented as of this encounter
--- OUTSIDE RECORDS SUMMARY | 2025-02-16 01:27 | XMS_ITS | Clinical Summary ---
Author Organization [facility] Address [address] [place] [phone] Phone Care Team Providers Care Bail Attacher Name Role Phone Asha Dodge MD Primary Care Provider [phone] Allergies Active Allergy Reactions Criticality Noted Date Comments Adhesive Tape-Silicones 01/28/2025 Beta-Blockers (Beta-Adrenergic Blocking Agts) Palpitations Low 03/22/2023 Side effect only/ dc'd Fluorouracil Rash Low 04/08/2023 Tadalafil Other 11/04/2022 Other Reaction(s): Blood pressure, low Other reaction(s): Blood pressure, low Medications albuterol HFA (PROAIR HFA ; PROVENTIL HFA ; VENTOLIN HFA) 90 mcg/actuation inhaler Inhale 2 puffs by mouth every 6 hours as needed. 4 Active cetirizine (ZyrTEC) 10 mg tablet Take 1 tablet (10 mg total) by mouth. 5 Active cholecalciferol (VITAMIN D-3) 1,250 mcg (50,000 unit) capsule Take 1 capsule (50,000 Units total) by mouth once a week. 5 Active esomeprazole (NexIUM) [address] capsule Take 1 capsule (20 mg total) by mouth daily. 5 Active magnesium oxide 500 mg capsule TAKE 1 TABLET (30 MG) BY MOUTH ONCE PER DAY. 5 Active rosuvastatin (CRESTOR) 5 mg tablet Take 0.5 tablets (2.5 mg total) by mouth daily. 5 08/14/19 26 Active simethicone (MYLICON) 80 mg chewable tablet 1 tablet (80 mg total). 5 Active sucralfate (CARAFATE) 100 mg/mL suspension Take 10 mL (1 g total) by mouth 2 times daily. 5 Active melatonin 1 mg tablet Take 2.5 tablets (2.5 mg total) by mouth. Active gabapentin (NEURONTIN) 100 mg capsule Take 1 capsule (100 mg total) by mouth at bedtime as needed. Active fluticasone propionate (FLONASE) 50 mcg/actuation nasal spray Administer 1-2 sprays into each nostril daily. 4 Active Encounters Date Type Department Care Team Description 01/28/2025 9:45 AM EST Consult [facility] [address] [place] [phone] Fredy Barker, DPM Nevus (Primary Dx); Varus deformity of both feet; Ingrowing nail from Last 3 Months Social History Tobacco [...] (2 - 3-dose SCDM series) 12/15/2021 11/17/2021 Depression Screening 03/07/2024 COVID-19 Vaccine ( season) 2024 11/13/2021, 03/16/2021, 07/15/2020, Additional history exists Influenza Vaccine (#1) 2024 4, 01/16/2021, 03/05/2019, Additional history exists Social Influencers of Health Screening 01/17/2025 Hypertension/CHF/CAD Annual BMP Blood Test 09/19/2025 09/19/2024, 08/04/2023 Cholesterol Screening (Lipid Panel) 07/12/2029 07/12/2024 DTaP,Tdap,and Td Vaccines (3 - Td or Tdap) 12/19/2032 12/19/2022, 06/14/2012 RSV Immunization Adult Patients (1 - 1-dose 75+ series) 2060 HIV Screening Completed 07/12/2024 Hepatitis C Screening Completed 07/12/2024 Hepatitis A Vaccines Aged Out 08/13/2024 No [...] on patient's age to complete this topic Insurance , [address] [address] MEDICAID - [place] Care Teams Bail Attacher Relationship Specialty Start Date End Date Asha Dodge MD [address] [place] [address] PCP - General Laborer General 01/17/25
--- OUTSIDE RECORDS SUMMARY | 2025-02-16 01:27 | XMS_ITS | Encounter Summary ---
Author Organization [employer] Address [address] [facility] [address] 7t [place] [address] Care Team Providers Care Coding Assistant Name Role Phone Asha Dodge MD Primary Care Provider [phone] Reason for Visit * Reason Onset Date Comments PT-1 01/04/2025 Encounter Details Date Type Department Care Team ([facility] st Contact Info) Description 01/04/2025 Telephone [facility] MEDICINE 230 [place], [place] [phone] Asha Dodge MD 230 [place], [place] [phone] PT-1 Social History Tobacco Use Types Packs/Day [...] encounter Miscellaneous Notes * Telephone Encounter - Chris Herbert - 01/04/2025 10:48 AM EDT Patient calling requesting more visits on PT1. Home Address verified: Y/N: Yes Provider name or facility name: [facility] Facility Address: [address] [place] [address] Escort needed: Y/N: No Do you have a wheelchair: Y/N: No If yes- Manual or electric: N/A Visits: 12 times a month instead of 4 documented in this encounter Plan of Treatment Not on file documented as of this encounter Visit Diagnoses Not on filedocumented in this encounter Additional Health Concerns Assessment Noted Time PHQ-9 Depression Total Score: 4 07/21/19 25 6:33 AM EDT documented as of this encounter Care Teams Coding Assistant Relationship Specialty Start Date End Date Asha Dodge MD [address] [address] PCP - General Family Medicine 12/29/22 Cyn Oviedo Orthopaedic DoctorInstallation Helper 08/08/24 documented as of this encounter
--- OUTSIDE RECORDS SUMMARY | 2025-02-16 01:27 | XMS_ITS | Encounter Summary ---
Author Organization [employer] Address [address] [facility] [address] 7t [place] [address] Care Team Providers Care Truck Striker Name Role Phone Asha Dodge MD Primary Care Provider [phone] Reason for Visit * Reason Onset Date Comments PT1 07/15/2023 Encounter Details Date Type Department Care Team ([facility] st Contact Info) Description 07/15/2023 Telephone [facility] MEDICINE 230 [place], [place] [phone] Asha Dodge MD 230 [place], [place] [phone] PT1 Social History Tobacco Use Types Packs/Day [...] / denial letter via mail. PT-1 Request [id number] Pending - [facility] [address] * Telephone Encounter - Toya Keyes - 07/15/2023 4:17 PM EDT Patient calling requesting PT1 Home Address verified: Y/N: Yes Provider name or facility name: [facility] Facility Address: [address] [place] [address] Escort needed: Y/N: No Do you have [...] documented as of this encounter Care Teams Truck Striker Relationship Specialty Start Date End Date Asha Dodge MD [address] [place] [address] PCP - General Family Medicine 12/29/22 Cyn Oviedo Web AnalystPaper Hanger 08/08/24 documented as of this encounter
--- OUTSIDE RECORDS SUMMARY | 2025-02-16 01:27 | XMS_ITS | Encounter Summary ---
Author Organization [facility] Address [address] [place] [address] Care Team Providers Care Blocklayer Name Role Phone Asha Dodge Primary Care Provider [phone] Encounter Details Date Type Department Care Team (Late st Contact Info) Description 02/17/2022 Telephone [facility] [address] [place] [address] Telephone Intake, Staff Social History Tobacco Use [...] side No symptoms on the right side Auto Transmission Technician thought he may have viral infection but he didn't see anything, patient reports opthalmologic noticed inside corner near optic muscle is angry Patient is having severe splitting headaches, but reports no sign of blood clot This all started 2 ays ago--- he reports aspirin makes it better [...] about trimenial neuralgia that he spoke to operations research director about. Please follow up with PT at [phone]. documented in this encounter Plan of Treatment Upcoming Encounters Date Type Department Care Team (Late st Contact Info) Description 03/06/2025 1:15 PM EST Office Visit [facility] [address] [place] [facility] 85 [facility] [address] [place] [address] Kentrell Bell MD [address] [facility] [address] [place] [address] Scheduled Procedures Name Priority Associated Diagnoses Date/Ti me UPPER ENDOSCOPY WITH ENDOSCO PIC ULTRASOUND WITH POSSIBLE MODERATE SEDATION Elevated lipase documented as of this encounter Visit Diagnoses Not on filedocumented in this encounter Care Teams Blocklayer Relationship Specialty Start Date End Date Asha Dodge 230 [place] [address] PCP - General 07/15/23 documented as of this encounter
--- OUTSIDE RECORDS SUMMARY | 2025-02-16 01:27 | XMS_ITS | Encounter Summary ---
Author Organization [employer] Address [address] [facility] 7t [place] [address] Care Team Providers Care Patient Admitting Representative Name Role Phone Asha Dodge MD Primary Care Provider [phone] Reason for Referral * Consultation (Routine) - Canceled Specialty Diagnoses / Procedures Referred By Contac t Referred To Contact Endocrinology Diagnoses Right thyroid nodule Rosana Landeros MD [address] [place] [address] Phone: tel: fax: [facility] Endocrinology [address] [place] [address] Phone: tel: fax: Referral ID Status Reason Start Date Expiration Date Visits Requested Visits Authorized [id number] Canceled Specialty Services Required 03/27/2024 03/27/2025 6 6 Encounter Details Date Type Department Care Team ([facility] Contact Info) Description 03/27/2024 Orders Only [facility] P[facility]S [address] [place] [address] Rosana Landeros MD [address] [place] [address] Right thyroid nodule (Primary Dx) Social History [...] as of this encounter Care Teams Patient Admitting Representative Relationship Specialty Start Date End Date Asha Dodge MD [address] [place] [address] PCP - General Family Medicine 12/29/22 Cyn Oviedo Ball Fringe Machine OperatorMetal Template Maker 08/08/24 documented as of this encounter
--- OUTSIDE RECORDS SUMMARY | 2025-02-16 01:27 | XMS_ITS | Encounter Summary ---
Author Organization [employer] Address [address] [place] [address] Care Team Providers Care Short Goods Drier Name Role Phone Asha Dodge MD Primary Care Provider [phone] Reason for Visit * Reason Onset Date Comments Pt-1 12/13/2024 Encounter Details Date Type Department Care Team ([facility] st Contact Info) Description 12/13/2024 Telephone [facility] MEDICINE [address] [place], [place] [phone] Asha Dodge MD [address] [place], [place] [phone] Pt-1 Social History Tobacco Use Types Packs/Day Years [...] * Telephone Encounter - Chris Herbert - 12/13/2024 11:30 AM EDT Patient calling requesting PT1 Home Address verified: Y/N: Yes Provider name or facility name: [facility] Facility Address: [address] [place] [phone] Escort needed: Y/N: No Do you have a wheelchair: Y/N: No If yes- Manual or electric: N/A Visits: 4 times a month documented in this encounter Plan of Treatment Not on file documented as of this encounter Visit Diagnoses Not on filedocumented in this encounter Additional Health Concerns Assessment Noted Time PHQ-9 Depression Total Score: 4 07/21/19 6:33 AM EDT documented as of this encounter Care Teams Short Goods Drier Relationship Specialty Start Date End Date Asha Dodge MD [address] [place] [address] PCP - General Family Medicine 12/29/22 Cyn Oviedo Gis GeographerAir Quality Manager 08/08/24 documented as of this encounter
--- OUTSIDE RECORDS SUMMARY | 2025-02-16 01:27 | XMS_ITS | Encounter Summary ---
Author Organization [employer] Address [address] [place] [address] Care Team Providers Care Clinical Technician Name Role Phone Asha Dodge MD Primary Care Provider [phone] Encounter Details Date Type Department Care Team (Late st Contact Info) Description 04/21/2022 Orders Only [facility] MEDICINE [address] [place] [address] Kaylie Cardona MD [address] [place] [address] Hemochromatosis, unspecified hemochromatosis type (Primary Dx) Social [...] SENSITIVITY TROPONIN I (05/02/2022 9:18 PM EST) [facility] [address] TROPONIN I HIGH SENSITIVITY <3.5 <3.5 - 35.0 ng/L [facility] Comment:The Baron high sens itivity Troponin-I results should beused in conjunction with other diagnostic information suchas ECG, clinical observations and information, and patientsymptoms to aid in the diagnosis of IA. 05/02/2022 9:18 PM EST 05/02/2022 9:21 PM EST [facility] External Provider LAB BLO OD ORDERABLES Final Result Performing Organization Address City/Special Care Hospital/ZIP Co de Phone Number [facility] [address] [place] [phone] * Lipase (05/02/2022 9:18 PM EST) [facility] [address] Lipase 35 8 - 78 U/L [facility] 05/02/2022 9:18 PM EST 05/02/2022 9:21 PM EST [facility] External Provider LAB BLO OD ORDERABLES Final Result Performing Organization Address [facility]/Special Care Hospital/[facility] Co de Phone Number [facility] [address] [place] [phone] * Comprehensive Metabolic Panel (05/02/2022 9:18 PM EST) [facility] [address] Sodium 141 135 - 145 mmol/L [facility] Potassium 4.2 3.3 - 5.1 mmol/L [facility] Chloride 103 96 - 108 mmol/L [facility] Carbon Dioxide 27 22 - 29 mmol/L [facility] Anion Gap 15 12 - 20 [facility] Urea Nitrogen (BUN) 12 9 - 16 mg/dL [facility] Creatinine, Serum 1.04 0.5 - 1.4 mg/dL [facility] Creatinine Clr Calc Pharmacy 114.4 [facility] Comment:eGFR (calculated fro m the MDRD study equation) and eCrCl(calculated from the Cockcroft-Gault equation) are based ondifferent parameters and may not yield comparable results.If eCrCl result is absurd, please check patient'sheight/weight. Estimated Glomerular Filt Rate >60 [facility] Comment:NOTE: For -Am erican individuals, multiply the result by 1.210.Chronic Kidney Disease: Estimated GFR < 60 mL/min/1.49c4Eaysal Kidney Disease: Estimated GFR < 15 mL/min/1.73m2 Glucose 96 60 - 115 mg/dL [facility] Calcium 9.7 8.4 - 10.2 mg/dL [facility] Bilirubin, Total 0.8 0.0 - 1.0 mg/dL [facility] Aspartate Amino Transferase 20 5 - 37 U/L [facility] Alanine Aminotransferase 31 0 - 40 U/L [facility] Total Protein 7.3 6.5 - 8.0 g/dL [facility] Albumin Level 4.4 3.5 - 5.0 g/dL [facility] Alkaline Phosphatase 81 39 - 117 U/L [facility] 05/02/2022 9:18 PM EST 05/02/2022 9:21 PM EST [facility] External Provider LAB BLO OD ORDERABLES Final Result [facility] [address] [place] [address] [phone] * (ABNORMAL) CBC auto differential (05/02/2022 9:18 PM EST) White Blood Count 8.8 4.8 - 10.8 X10*3/uL [facility] Red Blood Count 5.81(H) 4.60 - 5.80 X10*6/uL [facility] Hemoglobin 18.7(H) 14.0 - 18.0 g/dl [facility] Hematocrit 51.7 42.0 - 52.0 % [facility] Mean Corpuscular Volume 89.0 80.0 - 98.0 fL [facility] Mean Corpuscular Hemoglobin 32.2 27.0 - 33.0 pg [facility] Mean Corpuscular HGB Conc 36.2(H) 31.0 - 36.0 g/dl [facility] Red Cell Distribution Width 11.8 11.0 - 16.0 % [facility] Platelet Count 258 160 - 400 X10*3/uL [facility] Mean Platelet Volume 9.2(L) 9.4 - 12.4 fL [facility] Neutrophils Percent Auto 69.4 45 - 73 % [facility] Imm Gran Pct Auto 0.1 0.0 - 0.4 % [facility] Lymphocytes Percent Auto 22.1 20 - 40 % [facility] Monocytes Percent Auto 6.1 2 - 11 % [facility] Eosinophils Percent Auto 1.5 0 - 4 % [facility] Basophils Percent Auto 0.8 0 - 2 % [facility] NRBC Pct Auto 0.0 0.0 - 0.2 /100WBC [facility] Neutrophils Absolute Auto 6.1 2.0 - 8.3 x10*3/uL [facility] Imm Gran Abs Auto 0.01 0.00 - 0.03 X10*3/uL [facility] Lymphocytes Absolute Auto 1.9 1.2 - 4.9 X10*3/uL [facility] Monocytes Absolute Auto 0.5 0.1 - 1.2 X10*3/uL [facility] Eosinophils Absolute Auto 0.1 0.0 - 0.4 X10*3/uL [facility] Basophils Absolute Auto 0.1 0.0 - 0.2 X10*3/uL [facility] NRBC Abs Auto 0.000 0.0 - 0.012 X10*3/uL [facility] 05/02/2022 9:18 PM EST 05/02/2022 9:21 PM EST [facility] External Provider LAB BLO OD ORDERABLES Final Result [facility] [address] [place] [address] [phone] documented in this encounter Visit Diagnoses Diagnosis Hemochromatosis, unspecified hemochromatosis type- Primary documented in this encounter Care Teams Clinical Technician Relationship Specialty Start Date End Date Asha Dodge MD [address] [place] [address] PCP - General Family Medicine 12/29/22 Cyn Oviedo Applied MathematicianMillwright 08/08/24 documented as of this encounter
--- OUTSIDE RECORDS SUMMARY | 2025-02-16 01:27 | XMS_ITS | Encounter Summary ---
Author Organization [employer] Address [address] [place] [address] Care Team Providers Care Graining Machine Operator Name Role Phone Asha Dodge MD Primary Care Provider [phone] Reason for Referral * Consultation (Routine) - Closed Specialty Diagnoses / Procedures Referred By Contac t Referred To Contact Diagnoses Tinea corporis Asha Dodge MD [address] [place] [address] Phone: tel: fax: LadonnaKatie [address] [place] [address] [address] [place] [address] Phone: tel: fax: Referral ID Status Reason Start Date Expiration Date V isits Requested Visits Authorized [id number] Closed Specialty Services Required 01/23/2025 01/22/2026 6 6 Encounter Details Date Type Department Care Team ([facility] Contact Info) Description 01/11/2025 Orders Only [facility] MEDICINE [address] [place] [address] Asha Dodge MD [address] [place], [place] [phone] Tinea corporis (Primary Dx) Social History Tobacco Use Types [...] Priority Associated Diagnoses Order Schedule Referral to Dermatology Outpatient Referral Routine Tinea corporis Expected: 01/22/2025 (Approximate), Expires: 01/22/2026 documented as of this encounter Visit Diagnoses Diagnosis Tinea corporis- Primary Dermatophytosis of the body documented in this encounter Additional Health Concerns Assessment Noted Time PHQ-9 Depression Total Score: 4 07/21/19 25 6:33 AM EDT documented as of this encounter Care Teams Graining Machine Operator Relationship Specialty Start Date End Date Asha Dodge MD [address] [place] [address] PCP - General Family Medicine 12/29/22 Cyn Oviedo Central Supply TechnicianPublic Relations Intern 08/08/24 documented as of this encounter
--- OUTSIDE RECORDS SUMMARY | 2025-02-16 01:27 | XMS_ITS | Encounter Summary ---
Author Organization [employer] Address [address] 7[address] [place] [address] Care Team Providers Care Automotive Electrician Helper Name Role Phone Asha Dodge MD Primary Care Provider [phone] Encounter Details Date Type Department Care Team (Late st Contact Info) Description 10/24/2024 Orders Only [facility] MEDICINE [address] [place], [place] [phone] Asha Dodge MD [address] [place] [address] Social History Tobacco Use Types Packs/Day Years [...] documented as of this encounter Care Teams Automotive Electrician Helper Relationship Specialty Start Date End Date Asha Dodge MD [address] [place] [address] PCP - General Family Medicine 12/29/22 Cyn Oviedo Mailroom ManagerTub Washer 08/08/24 documented as of this encounter
--- OUTSIDE RECORDS SUMMARY | 2025-02-16 01:27 | XMS_ITS | Encounter Summary ---
Author Organization [employer] Address [address] [place] [address] Care Team Providers Care Senior Teller Name Role Phone Asha Dodge MD Primary Care Provider [phone] Encounter Details Date Type Department Care Team (Late st Contact Info) Description 07/20/2023 Orders Only [facility] MEDICINE [address] [place], [place] [phone] Asha Dodge MD [address] [place], [place] [phone] Frothy urine (Primary Dx) Social History Tobacco [...] (07/20/2023 3:54 PM EDT) Color Urine Yellow [facility] Appearance Urine Clear [facility] PH 7.5 5.0 - 9.0 [facility] Glucose Urine UA Negative Negative mg/dL [facility] Urine Blood Negative Negative [facility] Specific [place] - Urine <=1.005 1.005 - 1.025 [facility] Urine Protein Negative Neg-Trace mg/dL [facility] Urine Ketones Negative Negative mg/dL [facility] Nitrite Urine Negative Negative [facility] Leukocyte Esterase Urine Negative Negative [facility] RBC Urine 0-2 0 - 2 /HPF [facility] Urine WBC 0-5 0 - 5 /HPF [facility] Urine Squamous Epithelial Cell 0-2 0 - 2 /HPF [facility] Urine Bacteria None Seen None Seen [facility] Hyaline Casts, Urine 0-2 0 - 2 /LPF [facility] Urine 07/20/2023 3:54 PM EDT 07/20/2023 5:19 PM EDT Narrative [facility] - 07/20/2023 5:51 PM EDT Urine, Clean Catch us Asha Dodge MD LAB URINE ORDERABLES Final Res ult [facility] [address] [place] [address] [phone] documented in this encounter Visit Diagnoses Diagnosis Frothy urine- Primary documented in this encounter Additional Health Concerns Assessment Noted Time PHQ-9 Depression Total Score: 3 06/03/19 24 3:02 PM EDT documented as of this encounter Care Teams Senior Teller Relationship Specialty Start Date End Date sAha Dodge MD [address] [place] [address] PCP - General Family Medicine 12/29/22 Cyn Oviedo Community Health Outreach WorkerCase Finishing Machine Adjuster 08/08/24 documented as of this encounter
--- OUTSIDE RECORDS SUMMARY | 2025-02-16 01:27 | XMS_ITS | Encounter Summary ---
Author Organization [employer] Address [address] [place] [address] Care Team Providers Care Fire Prevention Officer Name Role Phone Asha Dodge MD Primary Care Provider [phone] Reason for Visit * Reason Onset Date Comments PT-1 06/14/2023 Encounter Details Date Type Department Care Team ([facility] st Contact Info) Description 06/14/2023 Telephone [facility] MEDICINE [address] [place], [place] [phone] Asha Dodge MD [address] [place], [place] [phone] PT-1 Social History Tobacco Use Types Packs/Day [...] / denial letter via mail. PT-1 Request [id number] Pending [facility] Pt has active PT1 to [address] [place] [address] through 06/2024 * Telephone Encounter - Sean Espinal - 06/21/2023 1:54 PM EDT Tc from patient calling to request the status of PT-1 for upcoming appt on 06/22 * Telephone Encounter - Sean Espinal - 06/14/2023 2:09 PM EDT Patient calling requesting PT1 Home Address verified: Y/N: Yes Provider name or facility name: Dr. Dallin Andrews MD Facility Address: [address] [place] [phone] Escort needed: Y/N: No Do you have a wheelchair: Y/N: No If yes- Manual or electric: no Visits: 4x a month Patient calling requesting PT1 Home Address verified: Y/N: Yes Provider name or facility name: [facility] Facility Address: [address] [place] [address] Escort needed: Y/N: No Do you have [...] as of this encounter Care Teams Fire Prevention Officer Relationship Specialty Start Date End Date Asha Dodge MD [address] [place] [phone] PCP - General Family Medicine 12/29/22 Cyn Oviedo Furniture Finisher HelperMaintenance Parts Technician 08/08/24 documented as of this encounter
--- OUTSIDE RECORDS SUMMARY | 2025-02-16 01:27 | XMS_ITS | Encounter Summary ---
Author Organization [employer] Address [address] [place] [address] Care Team Providers Care Quenching Car Operator Name Role Phone Asha Dodge MD Primary Care Provider [phone] Reason for Visit * Reason Onset Date Comments PT1 03/27/2024 Encounter Details Date Type Department Care Team ([facility] st Contact Info) Description 03/27/2024 Telephone [facility] MEDICINE [address] [place], [place] [phone] Asha Dodge MD [address] [place], [place] [phone] PT1 Social History Tobacco Use Types Packs/Day [...] a call back toclarify what's going on. [phone] * Telephone Encounter - Fiorella Garcia - 03/27/2024 2:00 PM EST Patient calling requesting PT1 Home Address verified: Y/N: Yes Provider name or facility name: [facility] Facility Address: [address] [place] [address] Escort needed: Y/N: No Do you have [...] documented as of this encounter Care Teams Quenching Car Operator Relationship Specialty Start Date End Date Asha Dodge MD [address] [place] [phone] PCP - General Family Medicine 12/29/22 Cyn Oviedo Herbarium WorkerSales Promoter 08/08/24 documented as of this encounter
--- OUTSIDE RECORDS SUMMARY | 2025-02-16 01:27 | XMS_ITS | Encounter Summary ---
Author Organization [employer] Address [address] [place] [address] Care Team Providers Care Industrial Services Worker Name Role Phone Asha Dodge MD Primary Care Provider [phone] Encounter Details Date Type Department Care Team (Late st Contact Info) Description 07/10/2024 Orders Only [facility] MEDICINE [address] [place], [place] [phone] Asha Dodge MD [address] [place] [address] Routine screening for STI (sexually transmitted infection) (Primary Dx); Elevated blood pressure reading; Hyperlipidemia, unspecified hyperlipidemia type Social History Tobacco Use Types Packs/Day Years [...] Procedure Name Priority Date/Time Associated Diagnosis Comments HEPATITIS C AB W/REFL TO HCV RNA, QN, PCR Routine 07/12/2024 Routine screening for STI (sexually transmitted infection) RPR (MONITOR) W/REFL TITER Routine 07/12/2024 Routine screening for STI (sexually transmitted infection) HIV 1/2 ANTIGEN/ANTIBODY, FOURTH GENERATION W/RFL Routine 07/12/2024 Routine screening for STI (sexually transmitted infection) LIPID PANEL, STANDARD Routine 07/12/2024 Elevated blood pressure reading Hyperlipidemia, unspecified hyperlipidemia type CHLAMYDIA/N. GONORRHOEAE RNA, TMA, UROGENITAL Routine 06/12/2024 Routine screening for STI (sexually transmitted infection) documented in this encounter Results * RPR (Monitor) with Reflex to??Titer (07/12/2024) Blood Venous blood specimen / Unknown us Asha Dodge MD LAB BLOOD ORDERABLES Final Res ult [facility] [address] [place] [phone] * Hepatitis C Antibody with Reflex to HCV, RNA, Quantitative, Real-Time PCR (07/12/2024) Blood Venous blood specimen / Unknown Result [facility] Asha Dodge MD LAB BLOOD ORDERABLES Final Res ult Performing Organization Address [facility] Phone Number [facility] [address] [place] [phone] * HIV-1/2 Antigen and Antibodies, Fourth Generation, with Reflexes (07/12/2024) Blood Venous blood specimen / Unknown Asha Dodge MD LAB BLOOD ORDERABLES Final Res ult Performing Organization Address [facility] Number [facility] [address] [place] [phone] * Lipid Panel, Standard (07/12/2024) Blood Venous blood specimen / Unknown Result [facility] Asha Dodge MD LAB BLOOD ORDERABLES Final Res ult Performing Organization Address [facility] Phone Number [facility] [address] [place] [phone] * Chlamydia/N. Gonorrhoeae RNA, TMA, Urogenitial (06/12/2024) Urine (Urine, Random) Result [facility] Asha Dodge MD LAB MICROBIOLOGY - GENERAL ORD ERABLES Final Result Performing Organization Address [facility] Phone Number [facility] [address] [place] [phone] documented in this encounter Visit Diagnoses Diagnosis Routine screening for STI (sexually transmitted infection)- Primary Screening examination for venereal disease Elevated blood pressure reading Elevated blood pressure reading without diagnosis of hypertension Hyperlipidemia, unspecified hyperlipidemia type documented in this encounter Additional Health Concerns Assessment Noted Time PHQ-9 Depression Total Score: 3 06/03/19 24 3:02 PM EDT documented as of this encounter Care Teams Industrial Services Worker Relationship Specialty Start Date End Date Asha Dodge MD [address] [place] [address] PCP - General Family Medicine 12/29/22 Cyn Oviedo Hardware AssemblerManager Flight 08/08/24 documented as of this encounter
[2025-02-16 02:00] VITALS: BP 117/72; PULSE 59; RESP 16; TEMP 36.6; O2SAT 96
[2025-02-16 03:28] VITALS: BP 124/80; PULSE 72; RESP 18; TEMP 36.9; O2SAT 99
== END 2025-02-16 03:30 | disposition home or self-care (01) ==
PROVIDERS: Emergency Provider Emergency Medicine
DX: S91.312A Laceration without foreign body, left foot, initial encounter (principal); W25.XXXA Contact with sharp glass, initial encounter; Y93.9 Activity, unspecified; Y92.9 Unspecified place or not applicable; I10 Essential (primary) hypertension
CPT/HCPCS: 73630; 99283; 99284

== ENCOUNTER → 2025-02-16 00:50 | Outpatient (BNV) | payer MEDICAID, SELFPAY | PROVIDERS: Emergency Provider Emergency Medicine; Visit Provider Radiology Neuroradiology | DX: Z03.89 Encounter for observation for other suspected diseases and conditions ruled out (principal) | CPT/HCPCS: 73630 ==

== ENCOUNTER → 2025-02-20 08:19 | Outpatient (REF) | payer MEDICAID, SELFPAY ==
--- NOTE | ~2025-02-20 | NM_ITS ---
EXAMINATION: [place] RADIONUCLIDE SOLID FOOD GASTRIC EMPTYING 4-HOUR STUDY CLINICAL INFORMATION: R68.81 - Early satiety COMPARISON: There are no prior studies available for comparison. TECHNIQUE: A standard meal consisting of 4 oz of Egg Beaters brand tagged with 0.82 mCi Tc-99m Sulfur Colloid, 8 oz water and 2 slices of toast with jelly was administered orally to the patient. Images were obtained using a dual head gamma camera in the anterior and posterior projections over of the stomach immediately post ingestion and at hourly intervals up to 4 hours post ingestion. The anterior and posterior counts at each time interval were averaged using the geometric mean and expressed as percentage of the immediate post ingestion counts. FINDINGS: There is visualization of activity in the stomach immediately post ingestion. As the study progresses, there is clearance of activity from the stomach and visualization of progressively increasing small bowel activity. Retention in the stomach at each time interval was: 1 hour 68% (normal 37%-90%) 2 hours 35% (normal 30%-60%) 3 hours 2% NM/WI gastric emptying study IMPRESSION: Normal 4-hour solid food gastric emptying study. For solid meal, rapid gastric emptying is less than 30% at 60 minutes. Delayed gastric emptying criteria is more than 60% remaining at 120 minutes or more than 10% at 240 minutes. The 4-hour value is the best discriminator of a normal or abnormal result. Gastric emptying study grading per JNMT Consensus Recommendations in 2008 (https://tech.snmjournals.org/content/36/1/44) Grade 1 (mild retention): 11-20% at 4h Grade 2 (moderate retention): 21-35% at 4h Grade 3 (severe retention): 36-50% at 4h Grade 4 (very severe retention): >50% retention at 4h Electronically signed by: Dada Quiñones MD 02/20/2025 12:18 PM [facility]
--- OUTSIDE RECORDS SUMMARY | 2025-02-20 08:31 | XMS_ITS | Encounter Summary ---
Author Organization [employer] Address [address] [place] [address] Care Team Providers Care Communications Marketing Intern Name Role Phone Asha Dodge MD Primary Care Provider [phone] Encounter Details Date Type Department Care Team (Late st Contact Info) Description 12/02/2023 Orders Only [facility] [address] [place], [place] [phone] Asha Dodge MD [address] [place], [place] [phone] Social History Tobacco Use Types Packs/Day Years [...] AM EDT Narrative 12/23/2023 4:24 PM EDT [facility] Primary Care [address] [place] [address] [place] [address] Ultrasound Report Signed Patient: Arben Emanuel MR#: [id number] : 1985 Acct:[id number] Age/Sex: 38 / M ADM Date: 12/21/23 Loc: HO.HMGCX Attending Dr: Marco Spears MD Ordering Physician: Marco Spears MD Date of Service: 12/21/23 Procedure(s): US SMA Accession Number(s): [id number] cc: Marco Spears MD; Asha Dodge EXAMINATION: [...] 12/23/23 1621 DD/ 2 TD/TT: 12/21/23 0930 Primer Press Operator: SS Procedure Note Donotuseinterpreter, Image - 12/23/2023 [facility] [address] [place] [address] [place] [address] Ultrasound Report Signed Patient: Landen EmanuelonyMR#: [id number] : 1985Acct:[id number] Age/Sex: 38 / MADM Date: 12/21/23 Loc: HO.HMGCX Attending Dr: Marco Spears MD Ordering Physician: Marco Spears MD Date of Service: 12/21/23 Procedure(s): US SMA Accession Number(s): [id number] cc: Marco Spears MD; Asha Dodge EXAMINATION: [...] OV> 12/23/23 1621 DD/ 09 TD/TT: 12/21/23929 Primer Press Operator: SS [facility] External Provider IMG US PROCEDURES Final Result documented in this encounter Visit Diagnoses Not on filedocumented in this encounter Additional Health Concerns Assessment Noted Time PHQ-9 Depression Total Score: 3 06/03/19 24 3:02 PM EDT documented as of this encounter Care Teams Communications Marketing Intern Relationship Specialty Start Date End Date Asha Dodge MD [address] [place] [phone] PCP - General Family Medicine 12/29/22 Cyn Oviedo Nursing Program DirectorCoal Trammer 08/08/24 documented as of this encounter
--- OUTSIDE RECORDS SUMMARY | 2025-02-20 08:31 | XMS_ITS | Encounter Summary ---
Author Organization [employer] Address [address] [place] [address] Care Team Providers Care Merchandise Flow Team Member Name Role Phone Asha Dodge MD Primary Care Provider [phone] Encounter Details Date Type Department Care Team (Late st Contact Info) Description 04/21/2022 Orders Only [facility] MEDICINE [address] [place] [address] Kaylie Cardona MD [address] [place] [address] Hemochromatosis, unspecified hemochromatosis type (Primary Dx) Social [...] SENSITIVITY TROPONIN I (05/02/2022 9:18 PM EST) [facility] TROPONIN I HIGH SENSITIVITY <3.5 <3.5 - 35.0 ng/L [facility] Comment:The Baron high sens itivity Troponin-I results should beused in conjunction with other diagnostic information suchas ECG, clinical observations and information, and patientsymptoms to aid in the diagnosis of DE. 05/02/2022 9:18 PM EST 05/02/2022 9:21 PM EST [facility] External Provider LAB BLO OD ORDERABLES Final Result Performing Organization Address City/[facility]/ZIP Co de Phone Number [facility] [address] [place] [phone] * Lipase (05/02/2022 9:18 PM EST) [facility] Lipase 35 8 - 78 U/L [facility] 05/02/2022 9:18 PM EST 05/02/2022 9:21 PM EST [facility] External Provider LAB BLO OD ORDERABLES Final Result Performing Organization Address [facility] Co de Phone Number [facility] [address] [place] [phone] * Comprehensive Metabolic Panel (05/02/2022 9:18 PM EST) [facility] Sodium 141 135 - 145 mmol/L [facility] Potassium 4.2 3.3 - 5.1 mmol/L [facility] Chloride 103 96 - 108 mmol/L [facility] Carbon Dioxide 27 22 - 29 mmol/L [facility] Anion Gap 15 12 - 20 [facility] Urea Nitrogen (BUN) 12 9 - 16 mg/dL [facility] Creatinine, Serum 1.04 0.5 - 1.4 mg/dL [facility] Creatinine Clr Calc Pharmacy 114.4 [facility] Comment:eGFR (calculated fro m the MDRD study equation) and eCrCl(calculated from the Cockcroft-Gault equation) are based ondifferent parameters and may not yield comparable results.If eCrCl result is absurd, please check patient'sheight/weight. Estimated Glomerular Filt Rate >60 [facility] Comment:NOTE: For -Am erican individuals, multiply the result by 1.210.Chronic Kidney Disease: Estimated GFR < 60 mL/min/1.84r0Cbvhke Kidney Disease: Estimated GFR < 15 mL/min/1.73m2 Glucose 96 60 - 115 mg/dL [facility] Calcium 9.7 8.4 - 10.2 mg/dL [facility] Bilirubin, Total 0.8 0.0 - 1.0 mg/dL [facility] Aspartate Amino Transferase 20 5 - 37 U/L [facility] Alanine Aminotransferase 31 0 - 40 U/L [facility] Total Protein 7.3 6.5 - 8.0 g/dL [facility] Albumin Level 4.4 3.5 - 5.0 g/dL [facility] Alkaline Phosphatase 81 39 - 117 U/L [facility] 05/02/2022 9:18 PM EST 05/02/2022 9:21 PM EST us [facility] External Provider LAB BLO OD ORDERABLES Final Result [facility] [address] [place] [address] [phone] * (ABNORMAL) CBC auto differential (05/02/2022 9:18 PM EST) White Blood Count 8.8 4.8 - 10.8 X10*3/uL [facility] Red Blood Count 5.81(H) 4.60 - 5.80 X10*6/uL [facility] Hemoglobin 18.7(H) 14.0 - 18.0 g/dl [facility] Hematocrit 51.7 42.0 - 52.0 % [facility] Mean Corpuscular Volume 89.0 80.0 - 98.0 fL [facility] Mean Corpuscular Hemoglobin 32.2 27.0 - 33.0 pg [facility] Mean Corpuscular HGB Conc 36.2(H) 31.0 - 36.0 g/dl [facility] Red Cell Distribution Width 11.8 11.0 - 16.0 % [facility] Platelet Count 258 160 - 400 X10*3/uL [facility] Mean Platelet Volume 9.2(L) 9.4 - 12.4 fL [facility] Neutrophils Percent Auto 69.4 45 - 73 % [facility] Imm Gran Pct Auto 0.1 0.0 - 0.4 % [facility] Lymphocytes Percent Auto 22.1 20 - 40 % [facility] Monocytes Percent Auto 6.1 2 - 11 % [facility] Eosinophils Percent Auto 1.5 0 - 4 % [facility] Basophils Percent Auto 0.8 0 - 2 % [facility] NRBC Pct Auto 0.0 0.0 - 0.2 /100WBC [facility] Neutrophils Absolute Auto 6.1 2.0 - 8.3 x10*3/uL [facility] Imm Gran Abs Auto 0.01 0.00 - 0.03 X10*3/uL [facility] Lymphocytes Absolute Auto 1.9 1.2 - 4.9 X10*3/uL [facility] Monocytes Absolute Auto 0.5 0.1 - 1.2 X10*3/uL [facility] Eosinophils Absolute Auto 0.1 0.0 - 0.4 X10*3/uL [facility] Basophils Absolute Auto 0.1 0.0 - 0.2 X10*3/uL [facility] NRBC Abs Auto 0.000 0.0 - 0.012 X10*3/uL [facility] 05/02/2022 9:18 PM EST 05/02/2022 9:21 PM EST [facility] External Provider LAB BLO OD ORDERABLES Final Result [facility] [address] [place] [phone] [phone] documented in this encounter Visit Diagnoses Diagnosis Hemochromatosis, unspecified hemochromatosis type- Primary documented in this encounter Care Teams Merchandise Flow Team Member Relationship Specialty Start Date End Date Asha Dodge MD [address] [place] [address] PCP - General Family Medicine 12/29/22 Cyn Oviedo Harness PlacerTrail Construction Worker 08/08/24 documented as of this encounter
--- OUTSIDE RECORDS SUMMARY | 2025-02-20 08:31 | XMS_ITS | Encounter Summary ---
Author Organization [employer] Address [address] [place] [address] Care Team Providers Care Training And Documentation Specialist Name Role Phone Asha Dodge MD Primary Care Provider [phone] Reason for Visit * Reason Onset Date Comments PT-1 06/14/2023 Encounter Details Date Type Department Care Team ([facility] st Contact Info) Description 06/14/2023 Telephone [facility] MEDICINE [address] [place], [place] [phone] Asha Dodge MD [address] [place], [place] [phone] PT-1 Social History Tobacco Use Types Packs/Day [...] / denial letter via mail. PT-1 Request [id number] Pending [facility] Pt has active PT1 to [address] [place] [address] through 06/2024 * Telephone Encounter - Sean Espinal - 06/21/2023 1:54 PM EDT Tc from patient calling to request the status of PT-1 for upcoming appt on 06/22 * Telephone Encounter - Sean Espinal - 06/14/2023 2:09 PM EDT Patient calling requesting PT1 Home Address verified: Y/N: Yes Provider name or facility name: Dr. Dallin Andrews MD Facility Address: [address] [place] [address] Escort needed: Y/N: No Do you have a wheelchair: Y/N: No If yes- Manual or electric: no Visits: 4x a month Patient calling requesting PT1 Home Address verified: Y/N: Yes Provider name or facility name: [facility] Facility Address: [address] [place] [address] Escort needed: Y/N: No Do you have [...] documented as of this encounter Care Teams Training And Documentation Specialist Relationship Specialty Start Date End Date Asha Dogde MD [address] [place] [phone] PCP - General Family Medicine 12/29/22 Cyn Oviedo Weed Cooking OperatorDonor Relations Associate 08/08/24 documented as of this encounter
--- OUTSIDE RECORDS SUMMARY | 2025-02-20 08:31 | XMS_ITS | Encounter Summary ---
Author Organization [employer] Address [address] [place] [address] Care Team Providers Care Telecommunication Lines Repairer Name Role Phone Asha Dodge MD Primary Care Provider [phone] Reason for Visit * Reason Onset Date Comments PT1 11/21/2023 Encounter Details Date Type Department Care Team ([facility] st Contact Info) Description 11/21/2023 Telephone [facility] MEDICINE [address] [place], [place] [phone] Asha Dodge MD [address] [place], [place] [phone] PT1 Social History Tobacco Use Types Packs/Day [...] name or facility name: PCP Facility Address: [address] [place] [address] Escort needed: Y/N: No Do you have a wheelchair: Y/N: No If yes- Manual or electric: Visits: 1-2 times a month 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
--- OUTSIDE RECORDS SUMMARY | 2025-02-20 08:31 | XMS_ITS | Encounter Summary ---
Author Organization [employer] Address [address] [facility] [address] [place] [address] Care Team Providers Care Thin Film Technician Name Role Phone Asha Dodge MD Primary Care Provider [phone] Encounter Details Date Type Department Care Team ([facility] st Contact Info) Description 12/02/2022 Orders Only [facility] MED & PEDS [address] [place], [place] [phone] Kaylie Cardona MD [address] [place] [address] Memory loss (Primary Dx) Social History Tobacco [...] Primary documented in this encounter Care Teams Thin Film Technician Relationship Specialty Start Date End Date Asha Dodge MD [address] [place] [address] PCP - General Family Medicine 12/29/22 Cyn Oviedo Filament WelderEdge Setter 08/08/24 documented as of this encounter
--- OUTSIDE RECORDS SUMMARY | 2025-02-20 08:31 | XMS_ITS | Encounter Summary ---
Author Organization [employer] Address [address] [place] [address] Care Team Providers Care Fuel Distribution System Operator Name Role Phone Asha Dodge MD Primary Care Provider [phone] Reason for Visit * Reason Onset Date Comments Call Back Request 06/01/2024 Encounter Details Date Type Department Care Team ([facility] st Contact Info) Description 06/01/2024 Telephone [facility] MEDICINE [address] [place], [place] [phone] Asha Dodge MD [address] [place], [place] [phone] Call Back Request Social History Tobacco Use [...] him a call back. Contact pt at [phone] documented in this encounter Plan of Treatment Not on file documented as of this encounter Visit Diagnoses Not on filedocumented in this encounter Additional Health Concerns Assessment Noted Time PHQ-9 Depression Total Score: 3 06/03/19 24 3:02 PM EDT documented as of this encounter Care Teams Fuel Distribution System Operator Relationship Specialty Start Date End Date Asha Dodge MD [address] [place] [phone] PCP - General Family Medicine 12/29/22 Cyn Oviedo Floor LayerPest Management Supervisor 08/08/24 documented as of this encounter
--- OUTSIDE RECORDS SUMMARY | 2025-02-20 08:31 | XMS_ITS | Encounter Summary ---
Author Organization [employer] Address [address] [place] [address] Care Team Providers Care Emergency Medical Service Coordinator Name Role Phone Asha Dodge MD Primary Care Provider [phone] Encounter Details Date Type Department Care Team (Late st Contact Info) Description 07/20/2023 Orders Only [facility] MEDICINE [address] [place], [place] [phone] Asha Dodge MD [address] [place], [place] [phone] Frothy urine (Primary Dx) Social History Tobacco [...] (07/20/2023 3:54 PM EDT) Color Urine Yellow [facility] Appearance Urine Clear [facility] PH 7.5 5.0 - 9.0 [facility] Glucose Urine UA Negative Negative mg/dL [facility] Urine Blood Negative Negative [facility] Specific [place] - Urine <=1.005 1.005 - 1.025 [facility] Urine Protein Negative Neg-Trace mg/dL [facility] Urine Ketones Negative Negative mg/dL [facility] Nitrite Urine Negative Negative [facility] Leukocyte Esterase Urine Negative Negative [facility] RBC Urine 0-2 0 - 2 /HPF [facility] Urine WBC 0-5 0 - 5 /HPF [facility] Urine Squamous Epithelial Cell 0-2 0 - 2 /HPF [facility] Urine Bacteria None Seen None Seen [facility] Hyaline Casts, Urine 0-2 0 - 2 /LPF [facility] Urine 07/20/2023 3:54 PM EDT 07/20/2023 5:19 PM EDT Narrative [facility] - 07/20/2023 5:51 PM EDT Urine, Clean Catch us Asha Dodge MD LAB URINE ORDERABLES Final Res ult [facility] [address] [place] [phone] [phone] documented in this encounter Visit Diagnoses Diagnosis Frothy urine- Primary documented in this encounter Additional Health Concerns Assessment Noted Time PHQ-9 Depression Total Score: 3 06/03/19 24 3:02 PM EDT documented as of this encounter Care Teams Emergency Medical Service Coordinator Relationship Specialty Start Date End Date Asha Dodge MD [address] [place] [address] PCP - General Family Medicine 12/29/22 Cyn Oviedo Medical Technologist GeneralistMarble Cutter 08/08/24 documented as of this encounter
--- OUTSIDE RECORDS SUMMARY | 2025-02-20 08:31 | XMS_ITS | Encounter Summary ---
Author Organization [employer] Address [address] [place] [address] Care Team Providers Care Custom Motorcycle Painter Name Role Phone Asha Dodge MD Primary Care Provider [phone] Reason for Visit * Reason Onset Date Comments PT-1 11/09/2023 Encounter Details Date Type Department Care Team ([facility] st Contact Info) Description 11/09/2023 Telephone [facility] MEDICINE [address] [place], [place] [phone] Asha Dodge MD [address] [place], [place] [phone] PT-1 Social History Tobacco Use Types Packs/Day [...] or facility name: [facility] Facility Address: [address] [place] [address] Escort needed: Y/N: No Do you have [...] documented as of this encounter Care Teams Custom Motorcycle Painter Relationship Specialty Start Date End Date Asha Dodge MD [address] [place] [phone] PCP - General Family Medicine 12/29/22 Cyn Oviedo Data Warehousing SpecialistDirector Data Management 08/08/24 documented as of this encounter
--- OUTSIDE RECORDS SUMMARY | 2025-02-20 08:31 | XMS_ITS | Encounter Summary ---
Author Organization [employer] Address [address] [place] [address] Care Team Providers Care Circular Ripsaw Operator Name Role Phone Asha Dodge MD Primary Care Provider [phone] Reason for Visit * Reason Onset Date Comments PT-1 03/15/2024 Encounter Details Date Type Department Care Team ([facility] st Contact Info) Description 03/15/2024 Telephone [facility] MEDICINE [address] [place], [place] [phone] Asha Dodge MD [address] [place], [place] [phone] PT-1 Social History Tobacco Use Types Packs/Day [...] Y/N: Yes Provider name or facility name: [facility] [address] [place] [address] Escort needed: Y/N: No Do you have a wheelchair: Y/N: No Visits: (2) ( x monthly ) documented in this encounter Plan of Treatment Not on file documented as of this encounter Visit Diagnoses Not on filedocumented in this encounter Additional Health Concerns Assessment Noted Time PHQ-9 Depression Total Score: 3 06/03/19 24 3:02 PM EDT documented as of this encounter Care Teams Circular Ripsaw Operator Relationship Specialty Start Date End Date Asha Dodge MD [address] [place] [phone] PCP - General Family Medicine 12/29/22 Cyn Oviedo Ground Host/HostessManager Requirements 08/08/24 documented as of this encounter
--- OUTSIDE RECORDS SUMMARY | 2025-02-20 08:31 | XMS_ITS | Encounter Summary ---
Author Organization [employer] Address [address] [place] [address] Care Team Providers Care Planer Chain Offbearer Name Role Phone Asha Dodge MD Primary Care Provider [phone] Reason for Referral * Consultation (Routine) - Canceled Specialty Diagnoses / Procedures Referred By Contac t Referred To Contact Orthopaedic Surgery Diagnoses Left hip pain Asha Dodge MD [address] [place] [address] Phone: tel: fax: [facility] Orthopedics, Sports Medicine & Surgery (Ambulatory Center) [address] [place] [address] Phone: tel: fax: Referral ID Status Reason Start Date Expiration Date Visits Requested Visits Authorized [id number] Canceled Specialty Services Required 11/09/2023 11/08/2024 1 0 Encounter Details Date Type Department Care Team (Late st Contact Info) Description 11/09/2023 Orders Only [facility] MEDICINE [address] [place] [address] [phone] Asha Dodge MD [address] [place] [address] [phone] Left hip pain (Primary Dx) Social History [...] documented as of this encounter Care Teams Planer Chain Offbearer Relationship Specialty Start Date End Date Asha Dodge MD [address] [place] [address] PCP - General Family Medicine 12/29/22 Cyn Oviedo Wire Winding Machine OperatorStrategic Account Manager 08/08/24 documented as of this encounter
--- OUTSIDE RECORDS SUMMARY | 2025-02-20 08:31 | XMS_ITS | Clinical Summary ---
Author Organization [employer] Address [address] [facility] [address] [place] [address] Care Team Providers Care Driver Helper Name Role Phone Asha Dodge MD Primary Care Provider [phone] Allergies Active Allergy Reactions Criticality Noted Date [...] 5 Active cholecalciferol (Vitamin D-3) 1.25 MG (77471 UT) capsule Take 1 capsule by mouth [...] repeat After labs return to Neurology at [facility] Discussed that lack of exercise/movement impairs blood flow to the brain Consider low dose statin for CAD/microvessal disease prevention as well Encounter for pharmacogenetic testing 04/16/2024 Overview (06/29/2024): Pre-test visit: 02/24/2024 Post-test visit: 04/13/2024 CYP2B6 poor metabolizer (CMS/HCC) 04/12/2024 Overview (06/29/2024): CYP2B6 *6 / * 6 POOR METABOLIZER RELEVANT MEDS: EFAVIRENZ, SERTRALINE GO TO [facility] for genotype allele specific prescribing guidelines: https://ddrx.pharmgkb.org/results?genotypeSelection=%7B%75LNT2E5%22%3A%5B%22*6%2 2%2C% 22*6%22%5D%7D GO TO [facility] SITE FOR GENERAL 2B6 GENE PRESCRIBING GUIDELINES [...] ,given recurrence I am referring today to vapor coater -may need bx -start clotrimazole/betamethasone x 3 to 4 weeks -cetirizine PRN -alarm signs and symptoms discussed -chem today ordered to monitor LFTS for pruritus -advised to avoid direct sun exposure -took pictures in pt phone so pt can show to vapor coater Assessment & Plan (10/26/2023 11:21 AM EDT): Rash on chest has decreased in size and appearance since initiation of combination nystatin/triamcinolone therapy - advised use of medication if symptoms reoccur - will refer to Allergy for intradermal testing for allergy to household molds, prefer Dr Fields of [facility] Allergy 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 Overview (10/21/2023): [...] EDT): Gave phone number to referral to [facility] Assessment & Plan (06/06/2023 7:40 AM EDT): Refer to [facility] 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 Assessment [...] regarding phlebotomy timing (ideally monthly per [facility] [place] consultation) as well as considering enrollment in clinical trial for hepcidin monitoring Ferritin is below 250 this month, goal is <100 Needs liver MRI for monitoring of iron burden Gave handouts about hemochromatosis so that he can expand his self-knowledge Assessment & Plan (03/22/2024 11:50 AM EST): Continue followup with Dr Good regarding phlebotomy timing (ideally monthly per [facility] [place] consultation) as well as considering enrollment in [...] there are concerns on his audiogram our biodiesel process control technician can touch base with one of our [...] a head CT last summer done at [facility]. Is wondering if draining or excising would help him. I discussed that for this condition, his best option is to see one of amazing rhinologists. I indicated that I would request this CT imaging being sent to our center (via Aleksandra Szymanski) to upload so that when he sees the packing attendant, that would be available. Will also ask Aleksandra to schedule the visit in clinic after the imaging is here. Primary insomnia 03/22/2023 Assessment & Plan (03/22/2024 11:51 AM EST): Saw [facility] sleep med entry level sales consultant Awaiting sleep study Neither sleep doctor, nor I can order melatonin levels, I am not sure how this would assist or change treatment either Assessment & Plan (03/22/2023 12:51 PM EST): Its probably related to anxiety, exacerbated by new onset HTN? We discussed re fu with therapist [facility] For rx anxiety, sleep meds, [...] told him to fu with psychotherapist at [facility] for psychopharmacology evaluation. 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 Thyroid US was normal aside from a right sided nodule that was there for the past 2 years. He went to an neurosurgery physician who said he was unsure of reason [...] schedule appointments accordingly. PLAN --follow-up with [facility] Endo --Therapy session for neck pain -- Call or return to clinic prn if these symptoms worsen or fail to improve as anticipated. Resolved Problems Problem Noted Date Diagnosed Date Resolved Date Anxiety and depression 02/22/202403/22 Alport syndrome 02/22/2024 03/22/2024 Overview (03/22/2024): COL4A3 gene (c.1450G>A, p.[id number]) for Alport syndrome. Left facial numbness 11/02/2022 [...] Reports he has had difficulties getting to [facility] to get labs, will check his labs. Abdominal pain 03/05/2022 03/17/2022 Assessment & Plan (03/05/2022 10:00 AM EST): Reports bloating and gas, feels left sided gas that radiates to his left shoulder, if we could have gas and diaphragmatic irritation, benign abd exam. He requested to be sent to [facility] to GI, referral placed Dizziness 02/09/2022 03/22/2024 Mood disorder 07/26/2018 01/30/2023 Encounters Date Type Department Care Team Description 02/19/2025 Orders Only [facility] [address] [place] [phone] Asha Dodge MD Hereditary hemochromatosis (CMS/HCC) (Primary Dx) 02/18/[address] [address] Asha Dodge MD NTTS Follow up 01/21/2025 6:20 PM EST Office Visit [facility] [address] [place] [phone] Peter Stern MD Right foot pain (Primary Dx) 01/21/2025 Orders Only GENERIC EXTERNAL DATA DEPARTMENT Provider, Generic External Data 01/18/2025 Patient Outreach [address] [address] Asha Dodge MD Care Coordination ([facility] outreach for SDOH PT-1 and food needs-referral completed /) 01/18/[address] [address] Asha Dodge MD 01/11/2025 Orders Only [address] [address] Asha Dodge MD Tinea corporis (Primary Dx) 01/09/2025 Orders Only [address] [address] Asha Dodge MD Heel pain, bilateral (Primary Dx); Tinea corporis 01/07/2025 Telephone [facility] [address] [place] [phone] Asha Dodge MD 01/04/2025 Patient Outreach [address] [address] Asha Dodge MD Care Coordination ([facility] outreach for SDOH PT-1 and food needs-referral completed /) 01/04/[address] [address] Asha Dodge MD PT-1 12/17/2024 Orders Only [facility] [address] [place] [phone] Asha Dodge MD 12/17/2024 Telephone [facility] P[facility] [address] [place] [address] Asha Dodge MD 12/13/2024 Patient Outreach [address] [address] Asha Dodge MD Care Coordination (CH[facility] outreach for SDOH PT-1 and food needs-referral completed /) 12/13/[address] [address] Asha Dodge MD Pt-1 12/01/[address] [address] Asha Dodge MD from Last 3 Months [...] Male 3-dose series) 12/15/2021 11/17/2021 COVID-19 Vaccine ( season) 2024 11/13/2021, 03/16/2021, 07/15/2020, Additional history exists Influenza Vaccine (#1) 2024 , 01/16/2021, 03/05/2019, Additional history exists Hepatitis A Vaccines (2 of 2 - Risk 2-dose series) 02/12/2025 08/13/2024 SDOH Screening 03/16/2025 03/16/2024 Alcohol/Substance Use Screening 05/11/2025 05/11/2024 Family Planning (PISQ) 05/11/2025 05/11/2024 Depression Screening 07/20/2025 07/20/2024, 05/16/20 25 Disability Screening 09/19/2025 09/19/2024 Tobacco Screening [...] Procedure Name Priority Date/Time Associated Diagnosis Comments XR FOOT 3+ VIEWS LEFT Routine 02/16/2025 2:31 AM EST TRYPSIN, SERUM Routine 01/21/2025 4:28 PM EST [...] Recently Relevant to Health Maintenance Results * XR Foot 3+ Views Left (02/16/2025 2:31 AM EST) Anatomical Region Laterality Modality Lower Extremities, Foot Left [facility] 02/16/2025 2:31 AM EST Narrative 02/16/2025 2:33 AM EST [address] [address] XRay Report Signed Patient: Arben Emanuel MR#: [id number] : 1985 Acct:[id number] Age/Sex: 39 / M ADM Date: 02/16/25 Loc: HO.ED Attending Dr: Ordering Physician: Lexie Mckeon MD Date of Service: 02/16/25 Procedure(s): XR foot LT min 3V Accession Number(s): [id number] cc: [facility]; Lexie Mckeon MD Reason for Exam: Question foreign body question fracture CLINICAL HISTORY: Question foreign body question fracture --- Additional Notes or Special Instructions: Had a glass piece cut the heel of his left foot. Also 3 view left foot Comparison: X-rays of the left foot from 12/02/2023 Findings: No acute displaced fracture. Likely accessory ossicle adjacent to imaged cuboid. Truncation of the 1st metatarsal is nonspecific and likely a congenital basis. No dislocation. No retained metallic foreign body. Soft tissue swelling includes superficial to calcaneus. IMPRESSION: 1. No acute displaced fracture. 2. No dislocation. This document has been electronically signed by: Levi Ruiz MD on 02/16/2025 02:31:15 Dictated By: Levi Ruiz MD Signed By: <Electronically signed by Levi Ruiz MD in OV> 02/16/25232 DD/ 0 TD/TT: 02/16/25230 Automotive Sales Associate: Procedure Note Donotuseinterpreter, Image - 02/16/2025 [place] [address] XRay Report Signed Patient: Landen EmanuelonyMR#: [id number] : 1985Acct:[id number] Age/Sex: 39 / MADM Date: 02/16/25 Loc: HO.ED Attending Dr: Ordering Physician: Lexie Mckeon MD Date of Service: 02/16/25 Procedure(s): XR foot LT min 3V Accession Number(s): [id number] cc: [facility]; Lexie Mckeon MD Reason for Exam: Question foreign body question fracture CLINICAL HISTORY: Question foreign body question fracture --- AdditionalNotes or Special Instructions: Had a glass piece cut the heel of his left foot. Also 3 view left foot Comparison: X-rays of the left foot from 12/02/2023 Findings: No acute displaced fracture. Likely accessory ossicle adjacent to imaged cuboid. Truncation of the 1st metatarsal is nonspecific and likely a congenital basis. No dislocation. No retained metallic foreign body. Soft tissue swelling includes superficial to calcaneus. IMPRESSION: 1. No acute displaced fracture. 2. No dislocation. This document has been electronically signed by: Levi Ruiz MD on 02/16/2025 02:31:15 Dictated By: Levi Ruiz MD Signed By: <Electronically signed by Levi Ruiz MD in OV> 02/16/25232 DD/ 0 TD/TT: 02/16/25230 Automotive Sales Associate: [facility] External Provider IMG XR PROCEDURES Edited Result - Final * Trypsin, Serum (01/21/2025 4:28 PM EST) Trypsin 675.3 [facility] Comment:INTERPRETIVE INFORMA TION: TrypsinReference Range: [...] was developed and its performance characteristicsdetermined by [facility]. It has not been cleared orapproved by the U.S. Food and Drug Administration. This testwasperformed in a CLIA-certified laboratory and is intended forclinical purposes.Performing [facility] [address] [place] [address], [id number] Tool Machinist: Yon Orr MD, PhD 01/21/2025 4:28 PM EST 01/21/2025 4:28 PM EST Generic External Data Provider LAB BLOOD ORDERAB LES Final Result [facility] [address] [place] [address] [phone] * Vitamin B5 (Pantothenic Acid) (01/21/2025 4:28 PM EST) Vitamin B5 (Pantothenic Acid) 59 <275 ng/mL [facility] Comment:This test was develo ped and its analyticalperformance characteristics have been determinedby [place].It has not been cleared or approved by the FDA. Thisassay has been validated pursuant to the CLIAregulations and is used for clinical purposes.THIS TEST WAS PERFORMED AT:[facility] [id number] [place] [address]LJLXWEPSHARRON GOODEN MD,PHD 01/21/2025 4:28 PM EST 01/21/2025 4:28 PM EST us Generic External Data Provider LAB BLOOD ORDERAB LES Final Result [facility] [address] [place] [address] [phone] * Vitamin D, 25-Hydroxy, Total, Immunoassay (01/21/2025 4:28 PM EST) Vitamin D 25-OH Total 66.5 >30 ng/mL [facility] Comment: Health Based Reference Values*< 20 ng/mL Pnnofkkve59-09 ng/mL Insufficient> 30 ng/mL Sufficient*Jessika BRITT. N [...] ORDERAB LES Final Result Performing Organization Address [facility] Co de Phone Number [facility] [address] [place] [phone] * Vitamin B12 (Cobalamin) and Folate Panel, Serum (01/21/2025 4:28 PM EST) Pathologist [facility] Vitamin B12 633 200 - 900 pg/mL [facility] Comment:NORMAL 200-900 PG/ML INDETERMINATE 160-199 PG/ML DEFICIENT < 160 PG/ML Folate 15.9 > or = 4.0 ng/mL [facility] Comment:Reference Values:> o r = 4.0 ng/mL< 4.0 ng/mL suggests folate deficiency Methotrexate, aminopterin and folinic acid(leucovorin) are chemotherapeutic agents whose molecularstructures are similar to folate; therefore, the Architectfolate assay cannot be used for patients using these drugs. 01/21/2025 4:28 PM EST 01/21/2025 4:28 PM EST [employer] External Data Provider LAB BLOOD ORDERAB LES Final Result Performing Organization Address [facility] Co de Phone Number [facility] [address] [place] [phone] [phone] * Vitamin A (01/21/2025 4:28 PM EST) Pathologist [facility] Vitamin A (Retinol) 52 38 - 98 mcg/dL [facility] Comment:Vitamin supplementat ion within 24 hours prior toblood draw may affect the accuracy of the results.This test was developed and its analytical performancecharacteristics have been determined by [facility] [place]. It hasnot been cleared or approved by the U.S. Food and DrugAdministration. This assay has been validated pursuantto the CLIA regulations and is used for clinicalpurposes.THIS TEST WAS PERFORMED AT:[facility] [id number] [place] [address]FPYAKFZSHARRON GOODEN MD,PHD 01/21/2025 4:28 PM EST 01/21/2025 4:28 PM EST us Generic External Data Provider LAB BLOOD ORDERAB LES Final Result [facility] [address] [place] [phone] * Vitamin B3 (Niacin and Metabolite) (01/21/2025 4:28 PM EST) Nicotinic Acid <20 see note ng/mL [facility] Comment:Due to the large [place] [...] and its analyticalperformance characteristics have been determinedby [place].It has not been cleared or approved by the FDA. Thisassay has been validated pursuant to the CLIAregulations and is used for clinical purposes. Nicotinamide 22 see note ng/mL [facility] Comment:Nicotinamide is a me tabolite [...] and its analyticalperformance characteristics have been determinedby [facility] [place], [place].It has not been cleared or approved by the FDA. Thisassay has been validated pursuant to the CLIAregulations and is used for clinical purposes.THIS TEST WAS PERFORMED AT:[facility] [id number] [place] [address]LTUZNDJSHARRON GOODEN MD,PHD 01/21/2025 4:28 PM EST 01/21/2025 4:28 PM EST us Generic External Data Provider LAB BLOOD ORDERAB LES Final Result [facility] [address] [place] [phone] * Vitamin E (Tocopherol) (01/21/2025 4:28 PM EST) Vitamin E, Alpha-Tocopherol 13.9 5.7 - 19.9 mg/L [facility] Comment:Levels of alpha-toco pherol <5 mg/L are consistentwith Vitamin E deficiency in adults. Vitamin E, Twup-Cajtr-Foiaoljbtk 1.0 <=4.3 mg/L [facility] Comment:Vitamin supplementat ion within 24 hours prior toblood draw may affect the accuracy of the results.This test was developed and its analytical performancecharacteristics have been determined by [facility]. It hasnot been cleared or approved by the U.S. Food and DrugAdministration. This assay has been validated pursuantto the CLIA regulations and is used for clinicalpurposes.THIS TEST WAS PERFORMED AT:[facility] [id number] [place] [address]FQFCSUCSHARRON GOODEN MD,PHD 01/21/2025 4:28 PM EST 01/21/2025 4:28 PM EST Generic External Data Provider LAB BLOOD ORDERAB LES Final Result Performing Organization Address [facility] Co de Phone Number [facility] [address] [place] [phone] * Vitamin B1 (01/21/2025 4:28 PM EST) Vitamin B1 30 8 - 30 nmol/L [facility] Comment:Vitamin supplementat ion within 24 hours prior toblood draw may affect the accuracy of the results.This test was developed and its analytical performancecharacteristics have been determined by [facility] [place], [place]. It hasnot been cleared or approved by the U.S. Food and DrugAdministration. This assay has been validated pursuantto the CLIA regulations and is used for clinicalpurposes.THIS TEST WAS PERFORMED AT:[facility] [id number] [place] [address]GKMFUFSSHARRON GOODEN MD,PHD 01/21/2025 4:28 PM EST 01/21/2025 4:28 PM EST Generic External Data Provider LAB BLOOD ORDERAB LES Final Result Performing Organization Address [facility] Co de Phone Number [facility] [address] [place] [phone] * (ABNORMAL) Vitamin B6, Plasma (01/21/2025 4:28 PM EST) Vitamin B6 34.5(A) 2.1 - 21.7 ng/mL [facility] Comment:Vitamin supplementat ion within 24 hours prior toblood draw may affect the accuracy of the results.This test was developed and its analytical performancecharacteristics have been determined by [facility] [place], [place]. It hasnot been cleared or approved by the U.S. Food and DrugAdministration. This assay has been validated pursuantto the CLIA regulations and is used for clinicalpurposes.THIS TEST WAS PERFORMED AT:[id number] [place] [address]MEHGOGVSHARRON GOODEN MD,PHD 01/21/2025 4:28 PM EST 01/21/2025 4:28 PM EST Generic External Data Provider LAB BLOOD ORDERAB LES Final Result Performing Organization Address [facility]/ZIP Co de Phone Number [facility] [address] [place] [phone] * Magnesium (01/21/2025 4:28 PM EST) Magnesium 2.1 1.6 - 2.6 mg/dL [facility] 01/21/2025 4:28 PM EST 01/21/2025 4:28 PM EST Generic External Data Provider LAB BLOOD ORDERAB LES Final Result Performing Organization Address [facility] Co de Phone Number [facility] [address] [place] [phone] * (ABNORMAL) Ferritin (01/21/2025 4:28 PM EST) Ferritin 278(H) 20 - 250 ng/mL [facility] 01/21/2025 4:28 PM EST 01/21/2025 4:28 PM EST Generic External Data Provider LAB BLOOD ORDERAB LES Final Result Performing Organization Address [facility] Co de Phone Number [facility] [address] [place] [phone] * (ABNORMAL) Comprehensive Metabolic Panel (01/21/2025 4:28 PM EST) Sodium 141 135 - 145 mmol/L [facility] Potassium 3.7 3.3 - 5.1 mmol/L [facility] Chloride 107 96 - 108 mmol/L [facility] Carbon Dioxide 25 22 - 29 mmol/L [facility] Anion Gap 13 12 - 20 [facility] Urea Nitrogen (BUN) 15 9 - 16 mg/dL [facility] Creatinine, Serum 1.13 0.5 - 1.4 mg/dL [facility] Estimated Glomerular Filt Rate >60 [facility] Comment:Chronic Kidney Disea se: Estimated GFR < 60 mL/min/1.32m0Elybfq Kidney Disease: Estimated GFR < 15 mL/min/1.73m2 Glucose 134(H) 60 - 115 mg/dL [facility] Calcium 9.7 8.4 - 10.2 mg/dL [facility] Bilirubin, Total 0.5 0.0 - 1.0 mg/dL [facility] Aspartate Amino Transferase 26 5 - 37 U/L [facility] Alanine Aminotransferase 37 0 - 40 U/L [facility] Total Protein 7.2 6.5 - 8.0 g/dL [facility] Albumin Level 4.5 3.5 - 5.0 g/dL [facility] Alkaline Phosphatase 90 39 - 117 U/L [facility] 01/21/2025 4:28 PM EST 01/21/2025 4:28 PM EST us Generic External Data Provider LAB BLOOD ORDERAB LES Final Result [facility] [address] [place] [phone] * CDiff Gene PCR (01/21/2025 3:31 PM EST) CDiff Gene PCR TNP Negative [facility] Comment:Formed specimen rece ived. 01/21/2025 3:31 PM EST 01/21/2025 4:24 PM EST us Generic External Data Provider LAB BODY FLUIDS A ND STOOLS ORDERABLES Final Result [facility] [address] [place] [phone] * Gastrointestinal panel (01/21/2025 3:31 PM EST) Campylobacter Not Detected Not Detect. [facility] Plesiomonas shigelloides Not Detected Not Detect. [facility] Salmonella Not Detected Not Detect. [facility] Vibrio Not Detected Not Detect. [facility] Vibrio cholerae Not Detected Not Detect. [facility] YERSINIA ENTEROCOLITICA Not Detected Not Detect. [facility] Enteroaggregative E. coli (EAEC) Not Detected Not Detect. [facility] Enteropathogenic E. coli (EPEC) Not Detected Not Detect. [facility] Enterotoxigenic E. coli (ETEC) lt/st Not Detected Not Detect. [facility] Shiga-like toxin-producing E. coli (STEC) stx1/stx2 Not Detected Not Detect. [facility] E coli O157 Not applicable Not Detect. [facility] Comment:E. coli containing t he O157 antigen are a subset ofShiga-like toxin- producing E. coli (STEC). Shigella/Enteroinvasive E. coli (EIEC) Not Detected Not Detect. [facility] Cryptosporidium Not Detected Not Detect. [facility] Cyclospora cayetanensis Not Detected Not Detect. [facility] Entamoeba histolytica Not Detected Not Detect. [facility] Giardia lamblia Not Detected Not Detect. [facility] Adenovirus F 40/41 Not Detected Not Detect. [facility] Astrovirus Not Detected Not Detect. [facility] Norovirus GI/GII Not Detected Not Detect. [facility] Rotavirus A Not Detected Not Detect. [facility] Sapovirus Not Detected Not Detect. [facility] Comment: All results must be [...] assay is performed by Multiplexed PCR, utilizing [employer]. 01/21/2025 3:31 PM EST 01/21/2025 4:24 PM EST us Generic External Data Provider LAB MICROBIOLOGY - GENERAL ORDERABLES Final Result [facility] [address] [place] [phone] * Pancreatic Elastase, Fecal (01/21/2025 3:31 PM EST) Pancreatic Elastase 1 >800 >200 mcg/g [facility] Comment:E-1 mcg/g feces Inte rpretation <100 Severe exocrine pancreatic insufficiency 100-200 Mild to moderate exocrine pancreatic insufficiency >200 NormalTHIS TEST WAS PERFORMED AT:[facility] [id number] LENORE WALKER [id number] ADAMS MD,PHD,KATHE 01/21/2025 3:31 PM EST 01/21/2025 4:24 PM EST us Generic External Data Provider LAB BODY FLUIDS A ND STOOLS ORDERABLES Final Result Performing Organization Address [facility] de Phone Number [facility] [address] [place] [phone] * Fecal Fat, Qualitative (01/21/2025 3:31 PM EST) Fecal Fat, Qualitative Normal Normal [facility] Comment:THIS TEST WAS PERFOR MED AT:[facility] [place] [id number] GOODEN MD,PHD 01/21/2025 3:31 PM EST 01/21/2025 4:24 PM EST Generic External Data Provider LAB BLOOD ORDERAB LES Final Result Performing Organization Address [facility] de Phone Number [facility] [address] [place] [phone] * Hepatitis C Antibody with Reflex to HCV, RNA, Quantitative, Real-Time PCR (07/12/2024) Blood Venous blood specimen / Unknown Asha Dodge MD LAB BLOOD ORDERABLES Final Res ult Performing Organization Address [facility] de Phone Number [facility] [address] [place] [phone] * HIV-1/2 Antigen and Antibodies, Fourth Generation, with Reflexes (07/12/2024) Blood Venous blood specimen / Unknown Asha Dodge MD LAB BLOOD ORDERABLES Final Res ult Performing Organization Address [facility] Co de Phone Number [facility] [address] [place] [phone] * Lipid Panel, Standard (07/12/2024) Blood Venous blood specimen / Unknown us Asha Dodge MD LAB BLOOD ORDERABLES Final Res ult [facility] [address] [place] [address] [phone] from Last 3 Months or Most Recently Relevant to Health Maintenance Insurance [employer] C3 Care Teams Driver Helper Relationship Specialty Start Date End Date Asha Dodge MD [address] [place] [address] PCP - General Family Medicine 12/29/22 Cyn Oviedo Channeler OutsoleImaging Engineer 08/08/24
--- OUTSIDE RECORDS SUMMARY | 2025-02-20 08:31 | XMS_ITS | Encounter Summary ---
Author Organization [employer] Address [address] [facility] [address] 7t [place] [address] Care Team Providers Care Filling And Stapling Machine Operator Name Role Phone Asha Dodge MD Primary Care Provider [phone] Reason for Visit * Reason Onset Date Comments NTTS Follow up 02/18/2025 Encounter Details Date Type Department Care Team ([facility] st Contact Info) Description 02/18/2025 Telephone [facility] MEDICINE [address] [place], [place] [phone] Asha Dodge MD [address] [place], [place] [phone] NTTS Follow up Social History Tobacco Use Types Packs/Day Years [...] the past 12 months, has t he [employer], gas, 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 threatened to [...] Miscellaneous Notes * Telephone Encounter - Connie Griffiths RN - 02/18/2025 12:15 PM EST [employer] message sent to patient for a status check for questions dealing with a wound on his foot. Patient to F/U PRN documented in this encounter Plan of Treatment Not on file documented as of this encounter Visit Diagnoses Not on filedocumented in this encounter Additional Health Concerns Assessment Noted Time PHQ-9 Depression Total Score: 4 07/21/19 25 6:33 AM EDT documented as of this encounter Care Teams Filling And Stapling Machine Operator Relationship Specialty Start Date End Date Asha Dodge MD [address] [place] [address] PCP - General Family Medicine 12/29/22 Cyn Oviedo Shirt CleanerCancer Registry Manager 08/08/24 documented as of this encounter
--- OUTSIDE RECORDS SUMMARY | 2025-02-20 08:31 | XMS_ITS | Encounter Summary ---
Author Organization [employer] Address [address] [facility] [address] [facility] [address] 7t [place] [address] Care Team Providers Care Benefits Technician Name Role Phone Asha Dodge MD Primary Care Provider [phone] Reason for Visit * Reason Onset Date Comments Pt-1 12/13/2024 Encounter Details Date Type Department Care Team ([facility] st Contact Info) Description 12/13/2024 Telephone [facility] MEDICINE 230 [place], [place] [phone] Asha Dodge MD [address] [place], [place] [phone] Pt-1 Social History Tobacco Use Types Packs/Day [...] Y/N: Yes Provider name or facility name: [facility] Facility Address: [address] [place] [address] Escort needed: Y/N: No Do you have [...] documented as of this encounter Care Teams Benefits Technician Relationship Specialty Start Date End Date Asha Dodge MD [address] [place] [address] PCP - General Family Medicine 12/29/22 Cyn Oviedo Overhauler HelperOpen Hearth Helper 08/08/24 documented as of this encounter
--- OUTSIDE RECORDS SUMMARY | 2025-02-20 08:31 | XMS_ITS | Encounter Summary ---
Author Organization [employer] Address [address] [facility] [address] 7t [place] [address] Care Team Providers Care Reconciliation Specialist Name Role Phone Asha Dodge MD Primary Care Provider Reason for Visit * Reason Onset Date Comments PT-1 09/05/2023 Encounter Details Date Type Department Care Team ([facility] st Contact Info) Description 09/05/2023 Telephone [facility] MEDICINE 230 [place], [place] [phone] Asha Dodge MD 230 [place], [place] [phone] PT-1 Social History Tobacco Use Types Packs/Day [...] Yes Provider name or facility name: [facility] Facility Address: [address] [place] [address] Escort needed: Y/N: No Do you have [...] documented as of this encounter Care Teams Reconciliation Specialist Relationship Specialty Start Date End Date Asha Dodge MD [address] [place] [address] PCP - General Family Medicine 12/29/22 Cyn Oviedo Economic Research AssistantDrop Wire Stringer 08/08/24 documented as of this encounter
--- OUTSIDE RECORDS SUMMARY | 2025-02-20 08:31 | XMS_ITS | Encounter Summary ---
Author Organization [employer] Address [address] [facility] [address] 7t [place] [address] Care Team Providers Care Benefits Specialist Name Role Phone Asha Dodge MD Primary Care Provider [phone] Encounter Details Date Type Department Care Team (Late st Contact Info) Description 08/31/2023 Orders Only [facility] MEDICINE [address] [place], [place] [phone] Asha Dodge MD 230 [place], [place] [phone] Hemochromatosis associated with mutation in HFE gene [...] EDT) Iron 271(H) 45 - 160 mcg/dL [facility] Total Iron Binding Capacity 296 228 - 428 mcg/dL [facility] Percent Iron Saturation 92(H) 15 - 50 % [facility] Unsaturated Iron Binding <25 ug/dL [facility] Blood Venous blood specimen / Unknown 09/20/2023 3:49 PM EDT 09/20/2023 5:20 PM EDT us Asha Dodge MD LAB BLOOD ORDERABLES Final Res ult [facility] [address] [place] [address] [phone] documented in this encounter Visit Diagnoses Diagnosis 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
--- OUTSIDE RECORDS SUMMARY | 2025-02-20 08:31 | XMS_ITS | Encounter Summary ---
Author Organization [employer] Address [address] 7[address] [place] [address] Care Team Providers Care Phytochemistry Professor Name Role Phone Asha Dodge MD Primary Care Provider Reason for Visit * Reason Onset Date Comments Nurse Triage 08/08/2023 Encounter Details Date Type Department Care Team ([facility] st Contact Info) Description 08/08/2023 Telephone [facility] MEDICINE 230 [place], [place] [phone] Asha Dodge MD 230 [place], [place] [phone] Nurse Triage Social History Tobacco Use Types [...] documented as of this encounter Care Teams Phytochemistry Professor Relationship Specialty Start Date End Date Asha Dodge MD [address] [place] [address] PCP - General Family Medicine 12/29/22 Cyn Oviedo Desk AttendantSynchronous Motor Assembler 08/08/24 documented as of this encounter
--- OUTSIDE RECORDS SUMMARY | 2025-02-20 08:31 | XMS_ITS | Encounter Summary ---
Author Organization [employer] Address [address] 7t [place] [address] Care Team Providers Care Family Service Center Director Name Role Phone Asha Dodge MD Primary Care Provider [phone] Reason for Visit * Reason Onset Date Comments PT1 09/06/2023 Encounter Details Date Type Department Care Team ([facility] st Contact Info) Description 09/06/2023 Telephone [facility] MEDICINE 230 [place], [place] [phone] Asha Dodge MD 230 [place], [place] [phone] PT1 Social History Tobacco Use Types Packs/Day [...] Y/N: Yes Provider name or facility name: [facility] Facility Address: [address] [place] [address] Escort needed: Y/N: No Do you have [...] documented as of this encounter Care Teams Family Service Center Director Relationship Specialty Start Date End Date Asha Dodge MD [address] [place] [address] PCP - General Family Medicine 12/29/22 Cyn Oviedo Isotope TechnicianSenior Marketing Specialist 08/08/24 documented as of this encounter
--- OUTSIDE RECORDS SUMMARY | 2025-02-20 08:32 | XMS_ITS | Encounter Summary ---
Author Organization [employer] Address [address] [facility] 7t [place] [address] Care Team Providers Care Greens Keeper Name Role Phone Asha Dodge MD Primary Care Provider [phone] Reason for Referral * Consultation (Routine) - Authorized Specialty Diagnoses / Procedures Referred By Contac t Referred To Contact Hepatology Diagnoses Hereditary hemochromatosis (CMS/HCC) Asha Dodge MD [address] [place] [address] Phone: tel: fax: [facility] Referral ID Status Reason Start Date Expiration Date Visits Requested Visits Authorized [id number] Authorized Specialty Services Required 5 02/19/2026 6 6 Encounter Details Date Type Department Care Team (Late st Contact Info) Description 02/19/2025 Orders Only [facility] MEDICINE [address] [place] [address] [phone] Asha Dodge MD [address] [place] [address] [phone] Hereditary hemochromatosis (CMS/HCC) (Primary Dx) Social History Tobacco Use [...] the past 12 months, has t he [employer], [employer], 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 threatened to shut [...] Scheduled Referrals Name Type Priority Associated Diagnoses Orde r Schedule Referral to Hepatology Outpatient Referral Routine Hereditary hemochromatosis (CMS/HCC) Expected: 02/19/2025 (Approximate), Expires: 02/19/2026 documented as of this encounter Visit Diagnoses Diagnosis Hereditary hemochromatosis (CMS/HCC)- Primary Hereditary hemochromatosis documented in this encounter Additional Health Concerns Assessment Noted Time PHQ-9 Depression Total Score: 4 07/21/19 25 6:33 AM EDT documented as of this encounter Care Teams Greens Keeper Relationship Specialty Start Date End Date Asha Dodge MD [address] [place] [address] PCP - General Family Medicine 12/29/22 Cyn Oviedo Director MobileCat And Dog Bather 08/08/24 documented as of this encounter
--- OUTSIDE RECORDS SUMMARY | 2025-02-20 08:32 | XMS_ITS | Encounter Summary ---
Author Organization [employer] Address [address] [facility] [address] 7t [place] [address] Care Team Providers Care Keying Machine Operator Name Role Phone Asha Dodge MD Primary Care Provider [phone] Encounter Details Date Type Department Care Team (Late st Contact Info) Description 12/17/2024 Orders Only [facility] MEDICINE 230 [place], [place] [phone] Asha Dodge MD 230 [place] [address] Social History Tobacco Use Types Packs/Day Years [...] documented as of this encounter Care Teams Keying Machine Operator Relationship Specialty Start Date End Date Asha Dodge MD 230 [place] [address] PCP - General Family Medicine 12/29/22 Cyn Oviedo Principal EngineerByproducts Supervisor 08/08/24 documented as of this encounter
--- OUTSIDE RECORDS SUMMARY | 2025-02-20 08:32 | XMS_ITS | Encounter Summary ---
Author Organization [employer] Address [address] [address] 7t [place] [address] Care Team Providers Care Automatic Operator Name Role Phone Asha Dodge MD Primary Care Provider [phone] Reason for Visit * Reason Onset Date Comments PT1 03/27/2024 Encounter Details Date Type Department Care Team ([facility] st Contact Info) Description 03/27/2024 Telephone [facility] MEDICINE 230 [place], [place] [phone] Asha Dodge MD 230 [place], [place] [phone] PT1 Social History Tobacco Use Types Packs/Day [...] a call back toclarify what's going on. [phone] * Telephone Encounter - Fiorella Garcia - 03/27/2024 2:00 PM EST Patient calling requesting PT1 Home Address verified: Y/N: Yes Provider name or facility name: [facility] Facility Address: [address] [place] [address] Escort needed: Y/N: No Do you have [...] documented as of this encounter Care Teams Automatic Operator Relationship Specialty Start Date End Date Asha Dodge MD [address] [place] [address] PCP - General Family Medicine 12/29/22 Cyn Oviedo Senior Java Web DeveloperShank Threader 08/08/24 documented as of this encounter
--- OUTSIDE RECORDS SUMMARY | 2025-02-20 08:32 | XMS_ITS | Encounter Summary ---
Author Organization [employer] Address [address] [facility] [address] 7t [place] [address] Care Team Providers Care Golf Instructor Name Role Phone Asha Dodge MD Primary Care Provider [phone] Reason for Referral * Consultation (Routine) - Closed Specialty Diagnoses / Procedures Referred By Contac t Referred To Contact Diagnoses Tinea corporis Asha Dodge MD 230 [place] [address] Phone: tel: fax: LadonnaKatie [address] [place] [address] [address] [place] [address] Phone: tel: fax: Referral ID Status Reason Start Date Expiration Date V isits Requested Visits Authorized [id number] Closed Specialty Services Required 01/23/2025 01/22/2026 6 6 Encounter Details Date Type Department Care Team ([facility] Contact Info) Description 01/11/2025 Orders Only [facility]INE 230 [place] [address] Asha Dodge MD [address] [place] [address] [phone] Tinea corporis (Primary Dx) Social History Tobacco [...] documented as of this encounter Care Teams Golf Instructor Relationship Specialty Start Date End Date Asha Dodge MD [address] [place] [address] PCP - General Family Medicine 12/29/22 Cyn Oviedo Hospital Sales RepresentativeMarine Pipefitter Helper 08/08/24 documented as of this encounter
--- OUTSIDE RECORDS SUMMARY | 2025-02-20 08:32 | XMS_ITS | Encounter Summary ---
Author Organization [facility] Address [address] [place] [address] Care Team Providers Care Rack Washer Name Role Phone Asha Dodge Primary Care Provider [phone] Encounter Details Date Type Department Care Team (Late Contact Info) Description 03/21/[address] [facility] Interventional Radiology [address] [place] [address] Doug Hassan MD [address] [place], [place] [phone] Social History Tobacco Use Types Packs/Day Years [...] 03/06/2025 1:15 PM EST Office Visit [facility] [address] [place] [facility] 85 [facility] [address] [place] [address] Kentrell Bell MD 85 [facility] [address] [place] [address] Scheduled Procedures Name Priority Associated Diagnoses Date/Ti me UPPER ENDOSCOPY WITH ENDOSCO PIC ULTRASOUND WITH POSSIBLE MODERATE SEDATION Elevated lipase documented as of this encounter Visit Diagnoses Not on filedocumented in this encounter Care Teams Rack Washer Relationship Specialty Start Date End Date Asha Dodge [address] [place] [address] PCP - General 07/15/23 documented as of this encounter
--- OUTSIDE RECORDS SUMMARY | 2025-02-20 08:32 | XMS_ITS | Encounter Summary ---
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 Please follow up with PT at [phone]. documented in this encounter Plan of Treatment Upcoming Encounters Date Type Department Care Team (Late st Contact Info) Description 03/06/2025 1:15 PM EST Office Visit [facility] [address] [place] [facility] 85 [facility] [address] [place] [address] Kentrell Bell MD 85 [facility] [address] [place] [address] Scheduled Procedures Name Priority Associated Diagnoses Date/Ti me UPPER ENDOSCOPY WITH ENDOSCO PIC ULTRASOUND WITH POSSIBLE MODERATE SEDATION Elevated lipase documented as of this encounter Visit Diagnoses Not on filedocumented in this encounter Care Teams Cane Pusher Relationship Specialty Start Date End Date sAha Dodge [address] [place] [address] PCP - General 07/15/23 documented as of this encounter
--- OUTSIDE RECORDS SUMMARY | 2025-02-20 08:32 | XMS_ITS | Clinical Summary ---
Author Organization [facility] Address [address] [place] [address] Care Team Providers Care Harnessmaker Apprentice Name Role Phone Asha Dodge Primary Care Provider [phone] Allergies Active Allergy Reactions Criticality Noted Date [...] He is getting care for hemochromatosis at [facility]. He has had hereditary hemochromatosis HFE [...] - He will continue care at [facility]. If any further questions come up, he [...] EST Office Visit [facility] 85 [place] [facility] 85 [facility] [address] [place] [address] Kentrell Bell MD 85 [facility] [address] [place], [place] [phone] Scheduled Procedures Name Priority Associated Diagnoses Date/Ti [...] Additional history exists Procedures * Due to [place] state law, this organization might not be sharing negative HIV tests. Procedure Name Priority Date/Time Associated Diagnosis Comments COMPREHENSIVE METABOLIC PANEL Routine 08/04/2023 8:52 AM EDT Elevated lipase from Last 3 Months or Most Recently Relevant to Health Maintenance Results * Due to [place] state law, this organization might not be sharing negative HIV tests. * Comprehensive metabolic panel (08/04/2023 8:52 AM EDT) NA 142 135 - 145 mmol/L 08/04/2023 9:51 AM EDT [facility] K 3.7 3.5 - 5.3 mmol/L 08/04/2023 9:51 AM EDT [facility] Cl 104 97 - 110 mmol/L 08/04/2023 9:51 AM EDT [facility] CO2 31 24 - 32 mmol/L 08/04/2023 9:51 AM EDT [facility] Anion Gap 7 5 - 15 08/04/2023 9:51 AM EDT [facility] Glucose 84 70 - 99 mg/dL 08/04/2023 9:51 AM EDT [facility] Creatinine 1.08 0.60 - 1.30 mg/dL 08/04/2023 9:51 AM EDT [facility] Calcium 9.9 8.7 - 10.7 mg/dL 08/04/2023 9:51 AM EDT [facility] Total Protein 7.6 6.0 - 8.0 g/dL 08/04/2023 9:51 AM EDT [facility] Albumin 4.7 3.5 - 4.8 g/dL 08/04/2023 9:51 AM EDT [facility] Bilirubin, Total 0.7 0.3 - 1.2 mg/dL 08/04/2023 9:51 AM EDT [facility] Alkaline Phosphatase 85 30 - 115 U/L 08/04/2023 9:51 AM EDT [facility] AST 13 [...] Result [facility] [address] [place] [address], from Last 3 Months or Most Recently Relevant to Health Maintenance Insurance [employer] Care Teams Harnessmaker Apprentice Relationship Specialty Start Date End Date Asha Dodge 230 [place] [address] PCP - General 07/15/23
--- OUTSIDE RECORDS SUMMARY | 2025-02-20 08:32 | XMS_ITS | Encounter Summary ---
Author Organization [employer] Address [address] [facility] [address] 7t [place] [address] Care Team Providers Care Acquisition Manager Name Role Phone Asha Dodge MD Primary Care Provider [phone] Encounter Details Date Type Department Care Team (Late st Contact Info) Description 07/10/2024 Orders Only [facility] MEDICINE 230 [place], [place] [phone] Asha Dodge MD [address] [place] [address] Routine screening for STI (sexually transmitted infection) [...] MD LAB BLOOD ORDERABLES Final Res ult [facility] [address] [place] [phone] * Hepatitis C Antibody with Reflex to HCV, RNA, Quantitative, Real-Time PCR (07/12/2024) Blood Venous blood specimen / Unknown Result [facility] Asha Dodge MD LAB BLOOD ORDERABLES Final Res ult Performing Organization Address [facility] Phone Number [facility] [address] [place] [phone] * HIV-1/2 Antigen and Antibodies, Fourth Generation, with Reflexes (07/12/2024) Blood Venous blood specimen / Unknown Asha Dodge MD LAB BLOOD ORDERABLES Final Res ult Performing Organization Address [facility] Number [facility] [address] [place] [phone] * Lipid Panel, Standard (07/12/2024) Blood Venous blood specimen / Unknown Result [facility] Asha Dodge MD LAB BLOOD ORDERABLES Final Res ult Performing Organization Address [facility] Phone Number [facility] [address] [place] [phone] * Chlamydia/N. Gonorrhoeae RNA, TMA, Urogenitial (06/12/2024) Urine (Urine, Random) Result [facility] Asha Dodge MD LAB MICROBIOLOGY - GENERAL ORD ERABLES Final Result Performing Organization Address [facility] Phone Number [facility] [address] [place] [phone] documented in this encounter Visit Diagnoses [...] documented as of this encounter Care Teams Acquisition Manager Relationship Specialty Start Date End Date Asha Dodge MD [address] [place] [address] PCP - General Family Medicine 12/29/22 Cyn Oviedo Burlap ManCommercial Lawn Specialist 08/08/24 documented as of this encounter
--- OUTSIDE RECORDS SUMMARY | 2025-02-20 08:32 | XMS_ITS | Encounter Summary ---
Author Organization [employer] Address [address] [facility] [address] 7t [place] [address] Care Team Providers Care Inspector Experimental Assembly Name Role Phone Asha Dodge MD Primary Care Provider [phone] Reason for Visit * Reason Onset Date Comments PT1 07/15/2023 Encounter Details Date Type Department Care Team ([facility] st Contact Info) Description 07/15/2023 Telephone [facility] 230 [place], [place] [phone] Asha Dodge MD 230 [place], [place] [phone] PT1 Social History Tobacco Use Types Packs/Day [...] / denial letter via mail. PT-1 Request [id number] Pending - [facility] [address] * Telephone Encounter - Toya Keyes - 07/15/2023 4:17 PM EDT Patient calling requesting PT1 Home Address verified: Y/N: Yes Provider name or facility name: [facility] Facility Address: [address] [place] [address] Escort needed: Y/N: No Do you have [...] documented as of this encounter Care Teams Inspector Experimental Assembly Relationship Specialty Start Date End Date Asha Dodge MD [address] [place] [address] PCP - General Family Medicine 12/29/22 Cyn Oviedo Foundry HandServer Engineer 08/08/24 documented as of this encounter
--- OUTSIDE RECORDS SUMMARY | 2025-02-20 08:32 | XMS_ITS | Encounter Summary ---
Author Organization [employer] Address [address] [facility] [address] 7t [place] [address] Care Team Providers Care Flume Ride Operator Name Role Phone Asha Dodge MD Primary Care Provider [phone] Encounter Details Date Type Department Care Team (Late st Contact Info) Description 01/18/2025 Telephone [facility] 230 [place], [place] [phone] Asha Dodge MD 230 [place], [place] [phone] Social History Tobacco Use Types Packs/Day Years [...] Y/N: Yes Provider name or facility name: [facility] Barker Facility Address: [address] [place] [address] Escort needed: Y/N: No Do you have [...] documented as of this encounter Care Teams Flume Ride Operator Relationship Specialty Start Date End Date Asha Dodge MD 230 [place] [address] PCP - General Family Medicine 12/29/22 Cyn Oviedo Osteopathic NeurologistJailer 08/08/24 documented as of this encounter
--- OUTSIDE RECORDS SUMMARY | 2025-02-20 08:32 | XMS_ITS | Encounter Summary ---
Author Organization [employer] Address [address] [address] [facility] [address] 7t [place] [address] Care Team Providers Care Quarry Supervisor Dimension Stone Name Role Phone Asha Dodge MD Primary Care Provider [phone] Reason for Visit * Reason Onset Date Comments PT1 05/10/2024 Encounter Details Date Type Department Care Team ([facility] st Contact Info) Description 05/10/2024 Telephone [facility] MEDICINE 230 [place], [place] [phone] Asha Dodge MD 230 [place], [place] [phone] PT1 Social History Tobacco Use Types Packs/Day [...] Y/N: Yes Provider name or facility name: [facility] Facility Address: [address] [place] [address] Escort needed: Y/N: No Do you have [...] documented as of this encounter Care Teams Quarry Supervisor Dimension Stone Relationship Specialty Start Date End Date Asha Dodge MD [address] [place] [address] PCP - General Family Medicine 12/29/22 Cyn Oviedo Rockboard LatherBiosecurity Officer 08/08/24 documented as of this encounter
--- OUTSIDE RECORDS SUMMARY | 2025-02-20 08:32 | XMS_ITS | Clinical Summary ---
Author Organization [facility] Address [address] [address] Phone Care Team Providers Care Satellite Dish Repairer Name Role Phone Asha Dodge MD Primary Care Provider + Peter Lerner MD, MS Unavailable [phone] Dallin Andrews MD Unavailable [phone] Allergies Active Allergy Reactions Criticality Noted Date [...] cause until now. 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 Overview (04/12/2024): CYP2B6 *6 / * 6 POOR METABOLIZER RELEVANT MEDS: EFAVIRENZ, SERTRALINE GO TO [facility] for genotype allele specific prescribing guidelines: https://ddrx.[employer].org/results?genotypeSelection=%7B%99AZJ9A1%22%3A%5B%22*6%2 2%2C% 22*6%22%5D%7D GO TO [facility] S[facility] FOR GENERAL 2B6 GENE PRESCRIBING GUIDELINES : https://www.[employer].org/gene/PA123/prescribingInfo Anxiety and depression 02/22/2024 PTSD (post-traumatic stress disorder) 02/22/2024 OCD (obsessive compulsive disorder) 02/22/2024 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 Hereditary hemochromatosis 02/22/2024 Assessment [...] race-neutral PREVENT score to determine CVD risk: https://professional.heart.org/en/piihtexmnm-fas-yrgrieyyxp/prevent-calculator Family history of early CAD 02/22/2024 Encounters Date Type Department Care Team Description 01/23/2025 Orders Only [facility] [address] [place] [address] [place] [address] Fredy Miller PA-C 01/07/2025 Telephone [facility] [address] [place] [address] Fredy Miller PA-C 01/07/2025 Orders Only [facility] [address] [place] [address] Fredy Miller PA-C 12/21/2024 Orders Only [facility] [address] [place] [address] ProviderMorena MD 12/20/2024 3:00 PM EDT Office Visit [facility] [address] [place] [address] Angelo Bryan MD, MPH Hereditary hemochromatosis (Primary Dx) 12/20/2024 Orders Only [facility] [address] [place] [address] Provider, MD Morena from Last 3 Months [...] Upcoming Encounters Date Type Department Care Team ([facility] st Contact Info) Description 02/25/2025 8:30 AM EST Telemedicine [facility] [address] [place] [address] Neil Childs MD 75 [place] [address] [email or web address] 06/20/2025 2:00 PM EDT Office Visit [facility] [address] [facility]2 [place] [address] Angelo Bryan MD, MPH [address] [facility] [place] [address] [email or web address] Maintenance Due Date Last Done [...] of2 resultswithin the time period is included. Historical Provider LAB BLOOD BKR ORDERABLES Final Result from Last [address] [place] [address] [place] [address] [place] [address] [place] [address] C3 ACO C3 ACO [facility] C3 ACO [facility] C3 ACO Care Teams Satellite Dish Repairer Relationship Specialty Start Date End Date Asha Dodge MD 230 [place] [address] PCP - General Family Medicine 06/09/23 Peter Lerner MD, MS [address] [place] [address], [address] [place] [address] [email or web address] Primary Care Physician Internal Medicine 02/22/24 Dallin Andrews MD [address] [place] [address] Hematology [place] [address] [email or web address] 12/20/24 Additional Source Comments The information contained in this document represents components of the legal health record. It is not the complete legal health record.[facility]
--- OUTSIDE RECORDS SUMMARY | 2025-02-20 08:32 | XMS_ITS | Clinical Summary ---
Author Organization [facility] Address [address] [place] [phone] Phone Care Team Providers Care Mechanist Name Role Phone Asha Dodge MD Primary Care Provider [phone] Allergies Active Allergy Reactions Criticality Noted Date [...] 9:45 AM EST Consult Orthopedic Surgery - [place] [address] [place] [phone] Fredy Barker, DPM Nevus (Primary Dx); [...] age to complete this topic Insurance , [address] [address] MEDICAID - [place] Care Teams Mechanist Relationship Specialty Start Date End Date Asha Dodge MD 230 [place] [address] PCP - General Soft Work Wrapper Layer And Examiner 01/17/25
--- OUTSIDE RECORDS SUMMARY | 2025-02-20 08:32 | XMS_ITS | Encounter Summary ---
Author Organization [employer] Address [address] [facility] [address] 7t [place] [address] Care Team Providers Care Director Of Regional Sales Name Role Phone Asha Dodge MD Primary Care Provider [phone] Encounter Details Date Type Department Care Team (Late st Contact Info) Description 10/24/[address] [facility]INE 230 [place], [place] [phone] Asha Dodge MD 230 [place] [address] Social History Tobacco Use Types Packs/Day Years [...] of this encounter Care Teams Director Of Regional Sales Relationship Specialty Start Date End Date Asha Dodge MD 230 [place] [address] PCP - General Family Medicine 12/29/22 Cyn Oviedo Engineering Group ManagerClay Thrower 08/08/24 documented as of this encounter
--- OUTSIDE RECORDS SUMMARY | 2025-02-20 08:32 | XMS_ITS | Encounter Summary ---
Author Organization [employer] Address [address] [facility] [address] 7t [place] [address] Care Team Providers Care Tower Climber Name Role Phone Asha Dodge MD Primary Care Provider [phone] Reason for Visit * Reason Onset Date Comments PT-1 01/04/2025 Encounter Details Date Type Department Care Team ([facility] st Contact Info) Description 01/04/2025 Telephone [facility] MED[facility]INE 230 [place], [place] [phone] Asha Dodge MD 230 [place], [place] [phone] PT-1 Social History Tobacco Use Types Packs/Day [...] facility name: [facility] [employer] [facility] Facility Address: [address] [place] [address] Escort needed: Y/N: No Do you have [...] documented as of this encounter Care Teams Tower Climber Relationship Specialty Start Date End Date Asha Dodge MD [address] [place] [address] PCP - General Family Medicine 12/29/22 Cyn Oviedo EstheticianCash Processing Specialist 08/08/24 documented as of this encounter
--- OUTSIDE RECORDS SUMMARY | 2025-02-20 08:32 | XMS_ITS | Encounter Summary ---
Author Organization [employer] Address [address] [facility] [facility] [address] 7t [place] [address] Care Team Providers Care Physician/Allergy/Immunology Name Role Phone Asha Dodge MD Primary Care Provider [phone] Reason for Visit * Reason Onset Date Comments PT1 05/31/2023 Encounter Details Date Type Department Care Team ([facility] st Contact Info) Description 05/31/2023 Telephone [facility] 230 [place], [place] [phone] Asha Dodge MD 230 [place], [place] [phone] PT1 Social History Tobacco Use Types Packs/Day [...] hours - You become worse Arben Haro [facility] Clinical Support (supporting Silva Drake RN)25 [...] / denial letter via mail. PT-1 Request [id number] Pending . [facility] [place] [place] [address] [facility] [address] * Telephone Encounter - Toya Keyes - 05/31/2023 2:42 PM EDT Patient calling requesting PT1 Home Address verified: Y/N: Yes Provider name or facility name: [facility] [address] [facility] Escort needed: Y/N: No Do you have a wheelchair: Y/N: No If yes- Manual or electric: no Visits: 12 per year documented in this encounter Plan of Treatment Not on file documented as of this encounter Visit Diagnoses Not on filedocumented in this encounter Care Teams Physician/Allergy/Immunology Relationship Specialty Start Date End Date Asha Dodge MD [address] [place] [address] PCP - General Family Medicine 12/29/22 Cyn Oviedo Electronic Device RepairerChild And Family Services Worker 08/08/24 documented as of this encounter
--- OUTSIDE RECORDS SUMMARY | 2025-02-20 08:32 | XMS_ITS | Encounter Summary ---
Author Organization [employer] Address [address] [facility] [address] 7t [place] [address] Care Team Providers Care Patient Service Coordinator Name Role Phone Asha Dodge MD Primary Care Provider [phone] Encounter Details Date Type Department Care Team (Late st Contact Info) Description 03/21/2023 Orders Only [facility] 230 [place], [place] [phone] Doug Quintana MD 230 [place], [place] [phone] Social History Tobacco Use Types Packs/Day Years [...] on filedocumented in this encounter Care Teams Patient Service Coordinator Relationship Specialty Start Date End Date Asha Dodge MD 230 [place], [place] [phone] PCP - General Family Medicine 12/29/22 Cyn Oviedo Plaster MechanicFurniture Sales Associate 08/08/24 documented as of this encounter
--- OUTSIDE RECORDS SUMMARY | 2025-02-20 08:32 | XMS_ITS | Encounter Summary ---
Author Organization [employer] Address [address] 7t [place] [address] Care Team Providers Care Medical Writer Name Role Phone Asha Dodge MD Primary Care Provider [phone] Encounter Details Date Type Department Care Team (Late st Contact Info) Description 01/07/2025 Telephone [facility] MEDICINE 230 [place], [place] [phone] Asha Dodge MD [address] [place], [place] [phone] Social History Tobacco Use Types Packs/Day Years [...] documented as of this encounter Care Teams Medical Writer Relationship Specialty Start Date End Date Asha Dodge MD [address] [place] [address] PCP - General Family Medicine 12/29/22 Cyn Oviedo Licensed Certified OrthotistCertified Performance Technologist 08/08/24 documented as of this encounter
--- OUTSIDE RECORDS SUMMARY | 2025-02-20 08:32 | XMS_ITS | Encounter Summary ---
Author Organization [employer] Address [address] [facility] 7t [place] [address] Care Team Providers Care Batch Analyst Name Role Phone Asha Dodge MD Primary Care Provider [phone] Reason for Referral * Consultation (Routine) - Canceled Specialty Diagnoses / Procedures Referred By Contac t Referred To Contact Endocrinology Diagnoses Right thyroid nodule Rosana Landeros MD [address] [place] [address] Phone: tel: fax: [facility] [address] [place] [address] Phone: tel: fax: Referral ID Status Reason Start Date Expiration Date Visits Requested Visits Authorized [id number] Canceled Specialty Services Required 03/27/2024 03/27/2025 6 6 Encounter Details Date Type Department Care Team ([facility] Contact Info) Description 03/27/2024 Orders Only [facility] [address] [place] [address] Rosana Landeros MD [address] [place] [address] Right thyroid nodule (Primary Dx) Social History [...] documented as of this encounter Care Teams Batch Analyst Relationship Specialty Start Date End Date Asha Dodge MD [address] [place] [address] PCP - General Family Medicine 12/29/22 Cyn Oviedo Ultimate Hoops Scoreboard OperatorFoundry Operator 08/08/24 documented as of this encounter
--- OUTSIDE RECORDS SUMMARY | 2025-02-20 08:32 | XMS_ITS | Encounter Summary ---
Author Organization [employer] Address [address] [facility] [address] 7t [place] [address] Care Team Providers Care Compotype Operator Name Role Phone Asha Dodge MD Primary Care Provider [phone] Reason for Visit * Reason Onset Date Comments PT1 04/19/2024 Encounter Details Date Type Department Care Team (Late st Contact Info) Description 04/19/2024 Telephone [facility] 230 [place], [place] [phone] Asha Dodge MD 230 [place], [place] [phone] PT1 Social History Tobacco Use Types Packs/Day [...] Y/N: Yes Provider name or facility name: [facility] Facility Address: [address] [place] [address] Escort needed: Y/N: No Do you have [...] documented as of this encounter Care Teams Compotype Operator Relationship Specialty Start Date End Date Asha Dodge MD [address] [place] [address] PCP - General Family Medicine 12/29/[address] Of [address] ClerkEmbedded Firmware Engineer 08/08/24 documented as of this encounter
--- OUTSIDE RECORDS SUMMARY | 2025-02-20 08:32 | XMS_ITS | Encounter Summary ---
Author Organization [facility] Address [address] [place] [address] Care Team Providers Care Drum Saw Operator Name Role Phone Asha Dodge Primary Care Provider [phone] Encounter Details Date Type Department Care Team (Late Contact Info) Description 07/17/2021 Orders Only [facility] [address] [place] [address] Brendan Kaylie [address] [place] [address] Social History Tobacco Use Types Packs/Day Years [...] 03/06/2025 1:15 PM EST Office Visit [facility] [address] [place] [facility] [address] [facility] [address] [place] [address] Kentrell Bell MD 85 [facility] [address] [place] [address] Scheduled Procedures Name Priority Associated Diagnoses Date/Ti me UPPER ENDOSCOPY WITH ENDOSCO PIC ULTRASOUND WITH POSSIBLE MODERATE SEDATION Elevated lipase documented as of this encounter Procedures * Due to [place] state law, this organization might not be sharing negative HIV tests. Procedure Name Priority Date/Time Associated Diagnosis Comments LAB - SCANNED Routine 04/08/2021 documented in this encounter Results * Due to [place] state law, this organization might not be sharing negative HIV tests. * LAB - SCANNED (04/08/2021) [facility] LAB HISTORICAL RESULTS Final Res ult documented in this encounter Visit Diagnoses Not on filedocumented in this encounter Care Teams Drum Saw Operator Relationship Specialty Start Date End Date Asha Dodge [address] [place] [address] PCP - General 07/15/23 documented as of this encounter
== END ==
LOC: HO.NUCMED 08:19
PROVIDERS: PCP General Practice; Visit Provider Internal Medicine
DX: R68.81 Early satiety (principal)
CPT/HCPCS: 78264; A9541

== ENCOUNTER → 2025-02-20 08:24 | Outpatient (BNV) | payer MEDICAID, SELFPAY | PROVIDERS: PCP General Practice; Visit Provider Radiology Diagnostic Radiology | DX: R68.81 Early satiety (principal) | CPT/HCPCS: 78264 ==